=== PATIENT | female | born 1960 | race Caucasian/White ===

== ENCOUNTER 2020-02-16 19:19 | Inpatient (IN) | payer MEDICAID, SELFPAY ==
[2020-02-16 19:21] VITALS: BP 200/116; PULSE 117; RESP 18; TEMP 36.8; O2SAT 96; BMI 22.6
--- NOTE | 2020-02-16 19:46 | ECG_ITS ---
[facility] Test Date: 2020-02-16 Pat Name: Skye Ambrose Department: Room: Gender: Female Protection Manager: : 1960 Requested By: Gardenia Dueñas I Order Number: [id number] Vince MD: Debbie Simmons M.D. Measurements Intervals [place] Rate: 116 P: 68 AR: 132 QRS: 66 QRSD: 79 T: 59 QT: 340 QTc: 473 Interpretive Statements SINUS TACHYCARDIA WITH OCCASIONAL VENTRICULAR PREMATURE COMPLEXES POSSIBLE LEFT ATRIAL ENLARGEMENT [-0.1mV P WAVE IN V1/V2] POSSIBLE LEFT VENTRICULAR HYPERTROPHY [VOLTAGE CRITERIA PLUS LAE OR QRS WIDENING] NONSPECIFIC ST & T-WAVE ABNORMALITY Compared to ECG 05/12/2018 22:55:27 Sinus rhythm no longer present Intraventricular conduction delay no longer present T-wave abnormality still present Electronically Signed On 02-16-2020 20:37:10 ONLINE MERCHANT by Debbie iSmmons M.D. [id number]
--- NOTE | 2020-02-16 19:46 | CTR_ITS ---
PROCEDURE INFORMATION: Exam: CT Head Without Contrast Exam date and time: 02/16/2020 8:21 PM Age: 59 years old Clinical indication: Weakness, extremity and weakness, facial; Right; Additional info: Symptoms of acute stroke TECHNIQUE: Imaging protocol: Computed tomography of the head without contrast. Radiation optimization: All CT scans at this facility use at least one of these dose optimization techniques: automated exposure control; mA and/or kV adjustment per patient size (includes targeted exams where dose is matched to clinical indication); or iterative reconstruction. Other technique: STROKE PROTOCOL was implemented. COMPARISON: No relevant prior studies available. RADIATION DOSE METRICS: Total DLP (mGy-cm): 709.6 FINDINGS: Brain: There is hypoattenuation in the periventricular and subcortical white matter consistent with chronic microvascular disease. There is no acute intracranial hemorrhage. Cerebral ventricles: There is no significant ventricular dilation. The basal cisterns are unremarkable. Bones/joints: The calvarium is intact. Paranasal sinuses: The paranasal sinuses are clear. Mastoid air cells: The mastoid air cells are clear. Soft tissues: The visible extracranial soft tissues are unremarkable. CT/CT head wo con* [id number] IMPRESSION: No acute findings. ASSESSMENT: ASPECTS ([place] Stroke Program Early CT Score) is 10. Radiation Dose CTDIVOL = (mGy): DLP = 709.6 (mGy-cm)
--- NOTE | 2020-02-16 19:46 | CTR_ITS ---
PROCEDURE INFORMATION: Exam: CT Angiography Head With Contrast Exam date and time: 02/16/2020 8:21 PM Age: 59 years old Clinical indication: Patient HX: RT side facial droop and RT side weakness; Additional info: Right facial droop TECHNIQUE: Imaging protocol: Computed tomography angiography of the head with intravenous contrast. 3D rendering (Not supervised by radiologist): MIP and/or 3D reconstructed images were created by the technologist. Radiation optimization: All CT scans at this facility use at least one of these dose optimization techniques: automated exposure control; mA and/or kV adjustment per patient size (includes targeted exams where dose is matched to clinical indication); or iterative reconstruction. Contrast material: VISI 320; Contrast volume: 75 ml; Contrast route: INTRAVENOUS (IV); COMPARISON: CT head wo con* [id number] 02/16/2020 8:36 PM RADIATION DOSE METRICS: Total DLP (mGy-cm): 1972.39 FINDINGS: ANTERIOR CIRCULATION: Right internal carotid artery: There is mild atherosclerotic disease in the cavernous portion of the right internal carotid artery without significant stenosis. Right middle cerebral artery: Unremarkable. No occlusion or significant stenosis. No aneurysm. Right anterior cerebral artery: Unremarkable. No occlusion or significant stenosis. No aneurysm. Left internal carotid artery: There is mild atherosclerotic disease in the cavernous portion of the left internal carotid artery without significant stenosis. Left middle cerebral artery: Unremarkable. No occlusion or significant stenosis. No aneurysm. Left anterior cerebral artery: Unremarkable. No occlusion or significant stenosis. No aneurysm. POSTERIOR CIRCULATION: Right vertebral artery: Unremarkable. No occlusion or significant stenosis. No aneurysm. Left vertebral artery: Unremarkable. No occlusion or significant stenosis. No aneurysm. Basilar artery: Unremarkable. No occlusion or significant stenosis. No aneurysm. Right posterior cerebral artery: origin of the right posterior cerebral artery. No occlusion or aneurysm. Left posterior cerebral artery: Unremarkable. No occlusion or significant stenosis. No aneurysm. Veins: Dural venous sinuses are patent. Brain: No definite mass, mass effect, or midline shift. Cerebral ventricles: No ventriculomegaly. Bones/joints: Unremarkable. No acute fracture. Soft tissues: Unremarkable. IMPRESSION: No arterial stenosis, occlusion or aneurysm. PROCEDURE INFORMATION: Exam: CT Angiography Neck With Contrast Exam date and time: 02/16/2020 8:21 PM Age: 59 years old Clinical indication: Patient HX: RT side facial droop and RT side weakness; Additional info: Right facial droop TECHNIQUE: Imaging protocol: Computed tomography angiography of the neck with intravenous contrast. 3D rendering (Not supervised by radiologist): MIP and/or 3D reconstructed images were created by the technologist. Radiation optimization: All CT scans at this facility use at least one of these dose optimization techniques: automated exposure control; mA and/or kV adjustment per patient size (includes targeted exams where dose is matched to clinical indication); or iterative reconstruction. Contrast material: VISI 320; Contrast volume: 75 ml; Contrast route: INTRAVENOUS (IV); COMPARISON: CT head wo con* [id number] 02/16/2020 8:36 PM RADIATION DOSE METRICS: Total DLP (mGy-cm): 1972.39 FINDINGS: Right common carotid artery: No stenosis. No dissection or occlusion. Right internal carotid artery: No stenosis of the extracranial segment. No dissection or occlusion. Right external carotid artery: No occlusion or stenosis of the origin. Right vertebral artery: There is near occlusion at the right vertebral artery origin. Left common carotid artery: No stenosis. No dissection or occlusion. Left internal carotid artery: There is moderate atherosclerotic disease with luminal irregularity and focal 60-70% stenosis at the origin of the left internal carotid artery. 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 Left external carotid artery: No occlusion or stenosis of the origin. Left vertebral artery: No stenosis. No dissection or occlusion. Aorta: There is marked irregularity of the wall of the distal aortic arch near the isthmus. 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 Bones/joints: The cervical spine and visible portions of the skull base, facial bones and thoracic inlet are unremarkable. Bones are unremarkable. Soft tissues: Unremarkable. No significant soft tissue swelling. Lungs: Nonspecific ground-glass opacity in the anterior right upper lobe. CT/CT angio headneck* [id number] IMPRESSION: 1. 60-70% stenosis due to atherosclerotic disease at the origin of the left internal carotid artery. 2. 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 REFERENCES: NASCET CRITERIA. The degree of internal carotid artery stenosis is based on NASCET criteria. Normal is no stenosis. Mild is less than 50% stenosis. Moderate is 50-69% stenosis. Severe is 70% to 99% stenosis. Total occlusion is no detectable patent lumen. Radiation Dose CTDIVOL = (mGy): DLP = 1971.39~1971.39 (mGy-cm)
[2020-02-16 20:14] VITALS: BP 160/94; PULSE 109; RESP 20; O2SAT 94
[2020-02-16] MEDS: ondansetron 2 mg/ML SDV 2 mL 4 MG IVP (20:25)
[2020-02-16] MEDS: diphenhydrAMINE 50 mg/mL SDV 1mL IVP (20:26)
[2020-02-16] MEDS: hydrocortisone 100 mg/2 mL SDV IVP (20:29)
--- NOTE | 2020-02-16 20:37 | PC.NURSE ---
Patient blood glucose is 105, doctor has been informed
[2020-02-16 20:39] LABS: Glucose Point of Care 105 mg/dL (70-110)
[2020-02-16 20:41] LABS: Blood Urine Neg (Negative); Glucose Urine UA Norm (Normal); Ketones Urine Negative (Negative); Protein Urine Neg (Negative); Urine Appearance Hazy (CLEAR); Urine Color Yellow (Yellow)
[2020-02-16 20:45] LABS: Amphetamines Screen Urine Negative (Negative); Barbiturates Screen Urine Negative (Negative); Benzodiazepines Screen Urine Negative (Negative); Cocaine Screen Urine Negative (Negative); Opiate Screen Urine Negative (Negative); PCP Screen Urine Negative (Negative); THC Screen Urine Negative (Negative)
[2020-02-16 20:45] LABS: Bilirubin Urine Neg (Negative); Nitrate Urine Positive (Negative)
[2020-02-16 20:46] LABS: Add Urine Microscopic? YES; Leukocyte Esterase Urine Trace (Negative); Urobilinogen Urine Norm (Negative)
[2020-02-16 20:47] LABS: Add Urine Culture? Yes; Bacteria Urine 3+ /hpf; Mucus Urine 2+ /hpf; Squamous Epithelial Cell Urine 0-4 /hpf (0-5); WBC Urine 15-25 /hpf (0-5)
--- NOTE | 2020-02-16 20:55 | PC.NURSE ---
pt gone to CT
[2020-02-16 21:21] LABS: Basophils # 0.1 10^3/uL (0.0-0.1); Basophils % 0.8 %; Eosinophils # 0.5 10^3/uL (0.0-0.8); Eosinophils % 5.9 %; Hematocrit 37.4 % (37.0-47.0); Hemoglobin 12.5 g/dL (11.5-15.3); Lymphocytes # 2.6 10^3/uL (0.8-4.8); Lymphocytes % 28.2 %; Mean Corpuscular HGB Conc 33.4 g/dL (30.0-36.0); Mean Corpuscular Hemoglobin 32.1 pg (28.0-34.0); Mean Corpuscular Volume 96.1 fL (81-99); Mean Platelet Volume 10.2 fL (7.4-10.4); Monocytes # 0.9 10^3/uL (0.2-0.9); Monocytes % 9.3 %; Neutrophils # 5.13 10^3/uL (1.8-7.7); Neutrophils % 55.6 %; Nucleated Red Blood Cells % 0 %; Platelet Count 303 10^3/cmm (130-400); Red Blood Count 3.89 10^6/uL (4.1-5.3); White Blood Count 9.2 10^3/uL (4.0-10.0)
[2020-02-16 21:28] LABS: INR 0.99 (0.8-1.2)
[2020-02-16 21:29] LABS: Partial Thromboplastin Time 32.8 SECONDS (23.9-36.7)
[2020-02-16 21:34] LABS: Alanine Aminotransferase 14 U/L (0-33); Albumin Level 3.7 g/dL (3.5-5.2); Alkaline Phosphatase 131 IU/L (35-105); Anion Gap 14.1 (5-19); Aspartate Amino Transferase 13 U/L (0-32); Blood Urea Nitrogen 16 mg/dL (6-20); Calcium 9.4 mg/dL (8.5-10.5); Carbon Dioxide 30 mmol/L (22-29); Chloride 97 mmol/L (98-107); Globulin 2.9 g/dL (1.3-4.6); Glomerular Filtration Rate 64.3 mL/min (90-130); Glucose 99 mg/dL (65-115); Osmolality Calculated 287 mOsm/kg (285-295); Potassium 3.1 mmol/L (3.5-5.1); Sodium 138 mmol/L (136-145); Total Bilirubin 0.2 mg/dL (0.15-1.2); Total Protein 6.6 g/dL (6.6-8.7)
[2020-02-16] MEDS: ciprofloxacin 400 MG/200 ML PREMIX 200 MG IV (22:42)
[2020-02-16 22:48] VITALS: RESP 23
[2020-02-16] MEDS: morphine 4 mg/mL SDV 1 mL IVP (22:48)
[2020-02-16 23:00] VITALS: BP 162/84; PULSE 98; RESP 16; O2SAT 96
[2020-02-17] VITALS (17 sets, daily range): BP systolic 102–180; BP diastolic 61–106; PULSE 77–106; RESP 15–98; TEMP 36.1–37; O2SAT 87–97
[2020-02-17] MEDS: morphine 4 mg/mL SDV 1 mL IVP (00:12)
--- NOTE | 2020-02-17 00:27 | W.ED.NEUROSD ---
HPI - Neuro Symptoms/Deficit General: Chief Complaint: Neuro Symptoms/Deficit Stated Complaint: rt sided weakness Time Seen by Provider: 02/16/20 19:34 Source: patient and EMS Mode of arrival: EMS Limitations: no limitations History of Present Illness: HPI Narrative: Patient was in her usual state of health when she went to bed last night about 10 PM. She says she woke up somewhere between 330 and 4:00 and that the right side of her face felt funny and different. When she eventually woke up she noticed right facial droop and the symptoms worsen as the day progressed. She eventually decided to come to the emergency department for evaluation. She denies any focal weakness in any of her extremities. Denies difficulty with her ambulation. Onset (ago): hour(s) (19) Last Observed Normal: 03:00 Location: right face History of same: No Severity: mild Quality: weak Relieving factors: none Exacerbating factors: none Context: sudden onset On Anticoagulants: No Associated symptoms: Reports headache(s); Deny chest pain, cough, diaphoresis, fevers/chills, anorexia, malaise, nausea, seizures, short of breath, syncope, tingling, vertigo, vomiting or weakness Treatments Prior to Arrival: none Review of Systems General: Reports: 10 or more systems reviewed and unremarkable except in HPI and below Const: Denies: malaise or diaphoresis Eyes: Denies: change in vision or blurry vision ENMT: Denies: throat pain, enlarged tonsils, odynophagia, hoarseness, mouth pain or swelling of lips/tongue Card: Denies: chest pain or syncope Resp: Denies: dyspnea, productive cough or non-productive cough GI: Denies: nausea or vomiting : Denies: flank pain, difficulty voiding, dysuria, urinary frequency, urinary urgency or urinary hesitancy Musc: Denies: neck pain, back pain or extremity swelling Skin/Breast: Denies: rash, pruritus or erythema Neuro: Reports: headache(s); Denies: vertigo Endo: Denies: polyuria, polydipsia or tired all the time [facility] ED PFSH: Family History Other Diabetes Denies family history of Bleeding disorder Social History Smoking and tobacco status: current every day smoker Second hand smoke exposure: Yes Smoking risk assessment/counseling performed?: Yes Alcohol intake: unknown Desire information about alcohol rehabilitation?: No Counseling given: No Desire information about substance/drug rehabilitation?: No Counseling given: No Adopted: No Caregiver/support person: No Lives independently: Yes Household members: spouse Marital status: Number of children: 5 service: No History of recent travel: No Current gender identity: Female NIH stroke score NIHSS: Level Of Consciousness - 1a: 0 Level Of Consciousness Questions - 1b: Both Correct Level Of Consciousness Commands - 1c: Both Correct Best Gaze - 2: Normal Visual Villarreal - 3: No Visual Loss Facial Palsy - 4: Partial Paralysis Motor Arm Right - 5: No Drift Motor Arm Left - 5: No Drift Motor Leg Right - 6: Drift Motor Leg Left - 6: No Drift Limb Ataxia - 7: Absent Sensory - 8: Normal Best Language - 9: No Aphasia Dysarthia - 10: Normal Extinction And Inattention - 11: 0 Score: Total Score: 3 Physical Exam Const: COMMON NORMALS: no acute distress, average body habitus, patient oriented x3, no limitations, healthy appearing, alert and well nourished HENMT: COMMON NORMALS: normocephalic, atraumatic and moist oral mucous membranes HEAD & SCALP: normocephalic and atraumatic Eye: COMMON NORMALS: Equal, round and reactive pupils present, EOMs intact bilaterally, conjunctivae normal and no scleral icterus CONJUNCTIVA: Yes conjunctivae normal PUPIL: Yes Equal, round and reactive pupils present Neck/C-Spine: COMMON NORMALS: full ROM, supple, no meningeal signs, no JVD and No carotid bruits Chest: COMMONS NORMALS: normal inspection of the chest and normal palpation of entire chest wall Resp: COMMON NORMALS: normal respiratory effort, No retractions, No use of accessory muscles, clear to auscultation bilaterally and percussion normal AUSCULTATION: clear to auscultation bilaterally PERCUSSION: percussion normal Cardio: COMMON NORMALS: no JVD, regular rate, regular rhythm, S1 normal heart sound present, S2 normal heart sound present, No gallops present (Cardio), No clicks present (Cardio), No murmurs present (Cardio), No rub (Cardio) and Peripheral pulses 2+ throughout RATE: regular rate RHYTHM: regular rhythm HEART SOUNDS: S1 normal heart sound present and S2 normal heart sound present PERIPHERAL PULSES: Peripheral pulses 2+ throughout GI: COMMON NORMALS: Normal to inspection, nondistended, normoactive bowel sounds present, Soft to palpation, non-tender, No hepatosplenomegaly present, no masses and no bruits PALPATION: Yes Soft to palpation and Yes No hepatosplenomegaly present Extremity: COMMON NORMALS: normal to inspection, full ROM, capillary refill normal, no calf tenderness and no pedal edema Neuro: COMMON NORMALS: patient oriented x3 SENSORIUM/ORIENTATION: Yes alert MENINGEAL SIGNS: Yes no meningeal signs Skin: COMMON NORMALS: no rashes or lesions noted, no wounds, turgor normal, no jaundice, no petechiae and no mottling GENERAL SKIN EXAM: no rashes or lesions noted and turgor normal Course ED course: Patient with symptoms consistent with a CVA. Patient remained stable in the emergency department and is admitted for stroke work-up. Consultations: Consultation #1: Discussed the patient with Dr. Ferris, hospitalist and he kindly accepted patient to his service Vital Signs: Vital signs: Vital Signs Temperature 98.2 F 02/16/20 19:21 Pulse Rate 102 H 02/17/20 00:23 Respiratory Rate 16 02/17/20 00:23 Blood Pressure 164/86 02/17/20 00:23 Pulse Oximetry 96 02/17/20 00:23 MDM - Neuro Symptoms/Deficit MDM Narrative: Medical decision making narrative: Patient with right facial droop and possible right lower extremity weakness. She does have some back pain so uncertain if the drift in his right lower extremity is from the back pain or if it is an actual weakness. Discussed is not completely clear-cut and because of her imaging findings there is a possibility that this may just be a Henry's palsy and so she is given a dose of oral prednisone. However she is a high risk patient as she is diabetic and hypertensive and so she is admitted for stroke work-up. Differential Diagnosis: Neuro Differential Diagnosis: Likely subarachnoid hemorrhage, peripheral neuropathy and cerebrovascular accident Medical Records: Attestation: I reviewed the patient's medical records. Lab Data: Attestation: I reviewed the patient's lab results. Labs: Lab Results 12/02/20 12/02/20 12/02/20 Range/Units 20:18 20:29 20:34 WBC (4.0-10.0) 10^3/ uL RBC (4.1-5.3) 10^6/u L Hgb (11.5-15.3) g/dL Hct (37.0-47.0) % MCV (81-99) fL MCH (28.0-34.0) pg MCHC (30.0-36.0) g/dL RDW (12.1-15.1) % Plt Count (130-400) 10^3/c mm MPV (7.4-10.4) fL Neut % (Auto) % Lymph % (Auto) % Petroleum % (Auto) % Eos % (Auto) % Baso % (Auto) % Neut # (Auto) (1.8-7.7) 10^3/u L Lymph # (Auto) (0.8-4.8) 10^3/u L Petroleum # (Auto) (0.2-0.9) 10^3/u L Eos # (Auto) (0.0-0.8) 10^3/u L Baso # (Auto) (0.0-0.1) 10^3/u L Nucleated RBC % (a uto) % Nucleated RBCs # /100WBC PT (12.1-14.9) SECO NDS INR (0.8-1.2) APTT (23.9-36.7) SECO NDS Sodium (136-145) mmol/L Potassium (3.5-5.1) mmol/L Chloride (98-107) mmol/L Carbon Dioxide (22-29) mmol/L Anion Gap (5-19) BUN (6-20) mg/dL Creatinine (0.5-0.9) mg/dL GFR Calculation (90-130) mL/min Glucose (65-115) mg/dL POC Glucose 105 (70-110) mg/dL Calculated Osmolal ity (285-295) mOsm/k g Calcium (8.5-10.5) mg/dL Total Bilirubin (0.15-1.2) mg/dL AST (0-32) U/L ALT (0-33) U/L Alkaline Phosphata se (35-105) IU/L Total Protein (6.6-8.7) g/dL Albumin (3.5-5.2) g/dL Globulin (1.3-4.6) g/dL Urine Color Yellow (Yellow) Urine Appearance Hazy A (CLEAR) Urine pH 5.0 (5-7) Ur Specific Gravit y 1.020 (1.005-1.030) Urine Protein Neg (Negative) Urine Glucose (UA) Norm (Normal) Urine Ketones Negative (Negative) Urine Blood Neg (Negative) Urine Nitrate Positive H (Negative) Urine Bilirubin Neg (Negative) Urine Urobilinogen Norm (Negative) mg/dL Ur Leukocyte Hazel ase Trace H (Negative) Urine RBC None (0-2) /hpf Urine WBC 15-25 H (0-5) /hpf Ur Squamous Epith Cells 0-4 H (0-5) /hpf Amorphous Sediment Not Reportable Urine Bacteria 3+ H (NONE) /hpf Urine Mucus 2+ /hpf Urine Opiates Scre en Negative (Negative) ng/mL Ur Barbiturates Sc reen Negative (Negative) ng/mL Ur Phencyclidine S crn Negative (Negative) ng/mL Ur Amphetamines Sc reen Negative (Negative) ng/mL U Benzodiazepines Scrn Negative (Negative) ng/mL Urine Cocaine Scre en Negative (Negative) ng/mL U Marijuana (THC) Screen Negative (Negative) ng/mL 02/16/20 02/16/20 02/16/20 Range/Units 21:06 21:06 21:06 WBC 9.2 (4.0-10.0) 10^3/ uL RBC 3.89 L (4.1-5.3) 10^6/u L Hgb 12.5 (11.5-15.3) g/dL Hct 37.4 (37.0-47.0) % MCV 96.1 (81-99) fL MCH 32.1 (28.0-34.0) pg MCHC 33.4 (30.0-36.0) g/dL RDW 13.0 (12.1-15.1) % Plt Count 303 (130-400) 10^3/c mm MPV 10.2 (7.4-10.4) fL Neut % (Auto) 55.6 % Lymph % (Auto) 28.2 % Petroleum % (Auto) 9.3 % Eos % (Auto) 5.9 % Baso % (Auto) 0.8 % Neut # (Auto) 5.13 (1.8-7.7) 10^3/u L Lymph # (Auto) 2.6 (0.8-4.8) 10^3/u L Petroleum # (Auto) 0.9 (0.2-0.9) 10^3/u L Eos # (Auto) 0.5 (0.0-0.8) 10^3/u L Baso # (Auto) 0.1 (0.0-0.1) 10^3/u L Nucleated RBC % (a uto) 0 % Nucleated RBCs # 0.0 /100WBC PT 13.40 (12.1-14.9) SECO NDS INR 0.99 (0.8-1.2) APTT 32.8 (23.9-36.7) SECO NDS Sodium 138 (136-145) mmol/L Potassium 3.1 L (3.5-5.1) mmol/L Chloride 97 L (98-107) mmol/L Carbon Dioxide 30 H (22-29) mmol/L Anion Gap 14.1 (5-19) BUN 16 (6-20) mg/dL Creatinine 0.9 (0.5-0.9) mg/dL GFR Calculation 64.3 L (90-130) mL/min Glucose 99 (65-115) mg/dL POC Glucose (70-110) mg/dL Calculated Osmolal ity 287 (285-295) mOsm/k g Calcium 9.4 (8.5-10.5) mg/dL Total Bilirubin 0.2 (0.15-1.2) mg/dL AST 13 (0-32) U/L ALT 14 (0-33) U/L Alkaline Phosphata se 131 H (35-105) IU/L Total Protein 6.6 (6.6-8.7) g/dL Albumin 3.7 (3.5-5.2) g/dL Globulin 2.9 (1.3-4.6) g/dL Urine Color (Yellow) Urine Appearance (CLEAR) Urine pH (5-7) Ur Specific Gravit y (1.005-1.030) Urine Protein (Negative) Urine Glucose (UA) (Normal) Urine Ketones (Negative) Urine Blood (Negative) Urine Nitrate (Negative) Urine Bilirubin (Negative) Urine Urobilinogen (Negative) mg/dL Ur Leukocyte Hazel ase (Negative) Urine RBC (0-2) /hpf Urine WBC (0-5) /hpf Ur Squamous Epith Cells (0-5) /hpf Amorphous Sediment Urine Bacteria (NONE) /hpf Urine Mucus /hpf Urine Opiates Scre en (Negative) ng/mL Ur Barbiturates Sc reen (Negative) ng/mL Ur Phencyclidine S crn (Negative) ng/mL Ur Amphetamines Sc reen (Negative) ng/mL U Benzodiazepines Scrn (Negative) ng/mL Urine Cocaine Scre en (Negative) ng/mL U Marijuana (THC) Screen (Negative) ng/mL Imaging Data^: CT Head: Radiologist's impression: [address] [address] [address] Scan Report Signed with Xochitl Patient: Skye Ambrose #: [id number] : 2Acct#:[id number] Age/Sex: 59 / FADM Date: 02/16/20 Loc: [facility]/Bed: Attending Dr: Ordering Provider/Ordering MD: Gardenia Hearn MD, [facility] [place] Date of Service: 02/16/20 Procedure(s): CT head wo con* [id number] Accession Number(s): [id number] Report Number: [id number]/CT head wo con* [id number] THIS REPORT CONTAINS FINDINGS THAT MAY BE CRITICAL TO PATIENT CARE. The findings were verbally communicated via telephone conference with GARDENIA HEARN at 9:24 PM QUALITATIVE RESEARCHER on 02/16/2020. The findings were acknowledged and understood. Radiation Dose CTDIVOL = (mGy): DLP = 709.6 (mGy-cm) Addendum Dictated By: Ta Najera MD Addendum Signed By: [facility] [facility] [place] Date/Time:02/16/202125 Addendum Cosigned By: PROCEDURE INFORMATION: Exam: CT Head Without Contrast Exam date and time: 02/16/2020 8:21 PM Age: 59 years old Clinical indication: Weakness, extremity and weakness, facial; Right; Additional info: Symptoms of acute stroke TECHNIQUE: Imaging protocol: Computed tomography of the head without contrast. Radiation optimization: All CT scans at this facility use at least one of these dose optimization techniques: automated exposure control; mA and/or kV adjustment per patient size (includes targeted exams where dose is matched to clinical indication); or iterative reconstruction. Other technique: STROKE PROTOCOL was implemented. COMPARISON: No relevant prior studies available. RADIATION DOSE METRICS: Total DLP (mGy-cm): 709.6 FINDINGS: Brain: There is hypoattenuation in the periventricular and subcortical white matter consistent with chronic microvascular disease. There is no acute intracranial hemorrhage. Cerebral ventricles: There is no significant ventricular dilation. The basal cisterns are unremarkable. Bones/joints: The calvarium is intact. Paranasal sinuses: The paranasal sinuses are clear. Mastoid air cells: The mastoid air cells are clear. Soft tissues: The visible extracranial soft tissues are unremarkable. CT/CT head wo con* [id number] IMPRESSION: No acute findings. ASSESSMENT: ASPECTS (Princess Stroke Program Early CT Score) is 10. Radiation Dose CTDIVOL = (mGy): DLP = 709.6 (mGy-cm) Dictated By:Ta Najera MD Signed By:Ta Najera Date/Time:02/16/202124 DD/ [address]: Radiologist's impression: [address] [address] [address] Scan Report Signed Patient: Skye Ambrose #: [id number] : 2Acct#:[id number] Age/Sex: 59 / FADM Date: 02/16/20 Loc: [facility]/Bed: Attending Dr: Ordering Provider/Ordering MD: Gardenia Hearn MD, [facility] [place] Date of Service: 02/16/20 Procedure(s): CT angio headneck* [id number] Accession Number(s): [id number] Report Number: [id number] PROCEDURE INFORMATION: Exam: CT Angiography Head With Contrast Exam date and time: 02/16/2020 8:21 PM Age: 59 years old Clinical indication: Patient HX: RT side facial droop and RT side weakness; Additional info: Right facial droop TECHNIQUE: Imaging protocol: Computed tomography angiography of the head with intravenous contrast. 3D rendering (Not supervised by radiologist): MIP and/or 3D reconstructed images were created by the technologist. Radiation optimization: All CT scans at this facility use at least one of these dose optimization techniques: automated exposure control; mA and/or kV adjustment per patient size (includes targeted exams where dose is matched to clinical indication); or iterative reconstruction. Contrast material: VISI 320; Contrast volume: 75 ml; Contrast route: INTRAVENOUS (IV); COMPARISON: CT head wo con* [id number] 02/16/2020 8:36 PM RADIATION DOSE METRICS: Total DLP (mGy-cm): 1972.39 FINDINGS: ANTERIOR CIRCULATION: Right internal carotid artery: There is mild atherosclerotic disease in the cavernous portion of the right internal carotid artery without significant stenosis. Right middle cerebral artery: Unremarkable. No occlusion or significant stenosis. No aneurysm. Right anterior cerebral artery: Unremarkable. No occlusion or significant stenosis. No aneurysm. Left internal carotid artery: There is mild atherosclerotic disease in the cavernous portion of the left internal carotid artery without significant stenosis. Left middle cerebral artery: Unremarkable. No occlusion or significant stenosis. No aneurysm. Left anterior cerebral artery: Unremarkable. No occlusion or significant stenosis. No aneurysm. POSTERIOR CIRCULATION: Right vertebral artery: Unremarkable. No occlusion or significant stenosis. No aneurysm. Left vertebral artery: Unremarkable. No occlusion or significant stenosis. No aneurysm. Basilar artery: Unremarkable. No occlusion or significant stenosis. No aneurysm. Right posterior cerebral artery: origin of the right posterior cerebral artery. No occlusion or aneurysm. Left posterior cerebral artery: Unremarkable. No occlusion or significant stenosis. No aneurysm. Veins: Dural venous sinuses are patent. Brain: No definite mass, mass effect, or midline shift. Cerebral ventricles: No ventriculomegaly. Bones/joints: Unremarkable. No acute fracture. Soft tissues: Unremarkable. IMPRESSION: No arterial stenosis, occlusion or aneurysm. PROCEDURE INFORMATION: Exam: CT Angiography Neck With Contrast Exam date and time: 02/16/2020 8:21 PM Age: 59 years old Clinical indication: Patient HX: RT side facial droop and RT side weakness; Additional info: Right facial droop TECHNIQUE: Imaging protocol: Computed tomography angiography of the neck with intravenous contrast. 3D rendering (Not supervised by radiologist): MIP and/or 3D reconstructed images were created by the technologist. Radiation optimization: All CT scans at this facility use at least one of these dose optimization techniques: automated exposure control; mA and/or kV adjustment per patient size (includes targeted exams where dose is matched to clinical indication); or iterative reconstruction. Contrast material: VISI 320; Contrast volume: 75 ml; Contrast route: INTRAVENOUS (IV); COMPARISON: CT head wo con* [id number] 02/16/2020 8:36 PM RADIATION DOSE METRICS: Total DLP (mGy-cm): 1972.39 FINDINGS: Right common carotid artery: No stenosis. No dissection or occlusion. Right internal carotid artery: No stenosis of the extracranial segment. No dissection or occlusion. Right external carotid artery: No occlusion or stenosis of the origin. Right vertebral artery: There is near occlusion at the right vertebral artery origin. Left common carotid artery: No stenosis. No dissection or occlusion. Left internal carotid artery: There is moderate atherosclerotic disease with luminal irregularity and focal 60-70% stenosis at the origin of the left internal carotid artery. 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 Left external carotid artery: No occlusion or stenosis of the origin. Left vertebral artery: No stenosis. No dissection or occlusion. Aorta: There is marked irregularity of the wall of the distal aortic arch near the isthmus. 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 Bones/joints: The cervical spine and visible portions of the skull base, facial bones and thoracic inlet are unremarkable. Bones are unremarkable. Soft tissues: Unremarkable. No significant soft tissue swelling. Lungs: Nonspecific ground-glass opacity in the anterior right upper lobe. CT/CT angio headneck* [id number] IMPRESSION: 1. 60-70% stenosis due to atherosclerotic disease at the origin of the left internal carotid artery. 2. 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 REFERENCES: NASCET CRITERIA. The degree of internal carotid artery stenosis is based on NASCET criteria. Normal is no stenosis. Mild is less than 50% stenosis. Moderate is 50-69% stenosis. Severe is 70% to 99% stenosis. Total occlusion is no detectable patent lumen. Radiation Dose CTDIVOL = (mGy): DLP = 1972.39~1972.39 (mGy-cm) Dictated By:Ta Najera MD Signed By:Ta Najera MDSigned Date/Time:02/16/202127 DD/ 25 EKG Data^: EKG 1: Attestation: I personally reviewed and interpreted this EKG as follows: EKG interpretation date: 02/16/20 EKG interpretation time: 20:32 Prior EKG tracings: not available for review Interpretation: Sinus tachycardia with occasional PVCs. Heart rate 116 bpm. Left atrial enlargement. LVH. No ST changes Discharge Plan Discharge Patient Disposition: Admitted As Inpatient Admit Provider: Calvin Ferris Clinical Impression: Cerebrovascular accident Qualifiers: CVA mechanism: unspecified Qualified Code(s): I63.9 - Cerebral infarction, unspecified Condition: Stable Coding Level of Care Code ED Education Liaison for Eddy Cabrera
--- NOTE | 2020-02-17 01:49 | P.HP_ITS ---
Providers/Chief Complaint Admitting Physician: Calvin Ferris MD Primary Care Provider: YASIR De LeonP-C Chief Complaint: rt sided weakness History of Present Illness Skye Ambrose is a 59 year old female with past medical history of right TM joint syndrome, hypertension, heart failure came in with chief complaint of acute onset of right facial weakness, started, on the morning of day of admission around 3:30 AM. she went to bed last night about 10 PM. She says she woke up somewhere between 330 and 4:00 and that the right side of her face felt funny and different. When she eventually woke up she noticed right facial droop and the symptoms worsen as the day progressed. She eventually decided to come to the emergency department for evaluation. She denies any focal weakness in any of her extremities. Denies difficulty with her ambulation. She denies any fever , cough , ear pain , ear discharge, dizziness, nausea, vomiting , headache, blurred vision, difficulty swallowing, difficulty with speech, any bowel bladder complaint, any sick contact. Upon arrival in the ER she was worked up for CVA/and possible Henry's palsy CT head without contraST: No acute findings. CTA head and neck: 60-70% stenosis due to atherosclerotic disease at the origin of the left internal carotid artery. 2. 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 EKG: SINUS TACHYCARDIA WITH OCCASIONAL VENTRICULAR PREMATURE COMPLEXES. POSSIBLE LEFT ATRIAL ENLARGEMENT [-0.1mV P WAVE IN V1/V2] POSSIBLE LEFT VENTRICULAR HYPERTROPHY [VOLTAGE CRITERIA PLUS LAE OR QRS WIDENING] NONSPECIFIC ST & T-WAVE ABNORMALITY. Urinalysis: Numerous WBC, positive nitrite, trace leukocyte Estrace U tox: Negative ER medications: Hydrocortisone 100 mg IV one-time dose, Levofloxacin 750 mg IV one-time dose. Review of Systems Const: Denies: fever(s), chills, body aches, change in appetite or diaphoresis Card: Denies: palpitations, edema, swelling of feet/ankles, dyspnea on exertion, orthopnea or leg pain with exertion Resp: Denies: dyspnea, productive cough, wheezing or pain on inspiration GI: Denies: abdominal pain, nausea, vomiting, diarrhea or constipation : Denies: flank pain Musc: Denies: back pain, extremity pain or extremity swelling Neuro: Denies: headache(s), difficulty walking or confusion Medications/Allergies Home Medications Medication Instructions Recorded Confirmed Last Taken Type potassium chloride 40 mEq/15 mL 40 meq PO DAILY #473 ml 06/22/19 02/16/20 Unknown Rx oral liquid aspirin 325 mg tablet 325 mg PO DAILY 09/06/19 02/16/20 02/16/20 History clonazepam 1 mg tablet 1 mg PO DAILY 09/06/19 02/16/20 02/16/20 History valacyclovir 1 gram tablet 1,000 mg PO DAILY 09/06/19 02/16/20 02/15/20 History furosemide 40 mg tablet 40 mg PO BID #180 tab 09/28/19 02/16/20 02/16/20 Rx acetaminophen [Tylenol] 325 mg PO QID PRN 02/16/20 02/16/20 Unknown History amlodipine 2.5 mg PO DAILY 02/16/20 02/16/20 Unknown History Allergies Allergy/AdvReac Type Severity Reaction Status Date / Time ceftriaxone [From Rocephin] Allergy UNK Verified 06/22/19 16:10 cephalexin [From Keflex] Allergy UNK Verified 06/22/19 16:10 dextromethorphan Allergy UNK Verified 06/22/19 16:10 eszopiclone [Lunesta] Allergy UNK Verified 06/22/19 16:10 Iodinated Contrast Media Allergy UNK Verified 06/22/19 16:10 ketoprofen Allergy UNK Verified 06/22/19 16:10 ketorolac [From Toradol] Allergy UNK Verified 06/22/19 16:10 mirtazapine [From Remeron] Allergy UNK Verified 06/22/19 16:10 nitrofurantoin Allergy UNK Verified 06/22/19 16:10 [From Macrobid] rofecoxib [From Vioxx] Allergy UNK Verified 06/22/19 16:10 sulfamethoxazole Allergy UNK Verified 06/22/19 16:10 [From Bactrim] sumatriptan [From Imitrex] Allergy UNK Verified 06/22/19 16:10 trimethoprim [From Bactrim] Allergy UNK Verified 06/22/19 16:10 zaleplon [From Sonata] Allergy UNK Verified 06/22/19 16:10 zolpidem [From Ambien] Allergy UNK Verified 06/22/19 16:10 PFSH Acute PFSH: Family History Other Diabetes Denies family history of Bleeding disorder Social History (Reviewed 02/17/20 @ 00:30 by Gardenia Dueñas [place], [facility] [place] Smoking and tobacco status: current every day smoker Second hand smoke exposure: Yes Smoking risk assessment/counseling performed?: Yes Alcohol intake: unknown Desire information about alcohol rehabilitation?: No Counseling given: No Desire information about substance/drug rehabilitation?: No Counseling given: No Adopted: No Caregiver/support person: No Lives independently: Yes Household members: spouse Marital status: Number of children: 5 service: No History of recent travel: No Current gender identity: Female Vitals/I&O/Wt Last Vital Signs Temp 97.6 F 02/17/20 00:44 Pulse 80 02/17/20 01:44 Resp 16 02/17/20 00:23 BP 180/106 02/17/20 00:44 Pulse Ox 97 02/17/20 01:44 Weight last 48 hrs Weight 54.431 kg Physical Exam Const: COMMON NORMALS: patient oriented x3 HENMT: COMMON NORMALS: normocephalic, atraumatic, hearing grossly normal bilaterally and external ears normal HEAD & SCALP: normocephalic and atraumatic EXTERNAL EAR: Yes external ears normal Eye: COMMON NORMALS: no scleral icterus GENERAL EYE: appearance normal, pascale th eyes and all related structures Chest: COMMONS NORMALS: normal inspection of the chest and normal palpation of entire chest wall CHEST: Yes Symmetrical chest wall rise Resp: COMMON NORMALS: normal respiratory effort, No retractions, No use of accessory muscles and clear to auscultation bilaterally EFFORT & INSPECTION: Yes symmetric chest movement AUSCULTATION: clear to auscultation bilaterally Cardio: COMMON NORMALS: regular rate, regular rhythm, S1 normal heart sound present, S2 normal heart sound present, No gallops present (Cardio), No murmurs present (Cardio), No rub (Cardio) and Peripheral pulses 2+ throughout RATE: regular rate RHYTHM: regular rhythm HEART SOUNDS: S1 normal heart sound present and S2 normal heart sound present PERIPHERAL PULSES: Peripheral pulses 2+ throughout GI: COMMON NORMALS: Normal to inspection, nondistended, normoactive bowel sounds present, Soft to palpation, non-tender, No hepatosplenomegaly present and no masses AUSCULTATION: Yes normoactive bowel sounds PALPATION: Yes Soft to palpation and Yes No hepatosplenomegaly present RECTAL EXAM: deferred Extremity: COMMON NORMALS: no clubbing, cyanosis or edema and no pedal edema Neuro: COMMON NORMALS: patient oriented x3 MENINGEAL SIGNS: Yes no meningeal signs and Yes nuccal rigidity CRANIAL NERVES: Yes pupillary reactivity/size, Yes CN I (olfactory), Yes CN II (optic), Yes CN III (oculom otor), Yes CN IV (trochlear), Yes CN V (trigeminal), Yes CN (abducens), Yes CN VIII (vestibulocochlear), Yes CN IX and CN X (glossopharyngeal/vagus), Yes CN XI (spinal accessory) and Yes CN XII (hypoglossal) COORDINATION/BALANCE: [id number] test normal and [id number] test normal SPEECH: speech normal GAIT: Yes Normal gait present SENSORY EXAM: Yes extremities and Trunk sensory exam abnormal MOTOR EXAM: 5/5 motor strength present throughout, Pronator motor function not present, no tremor noted, no asterixis, Motor fasciculations not present, Normal motor muscle tone present throughout and Motor abnormalities not present OTHER: Right-sided facial weakness present. Data : 02/16/20 21:06 02/16/20 21:06 A&P Assessment and plan (1) Henry's palsy: Patient has right-sided facial droop. CT head without contrast and CTA head and neck has failed to show any acute intracranial pathology. Less likely posterior circulation syndrome (vertebrobasilar syndrome) . MRI brain with and without contrast can be considered. 2D echo Currently started on dexamethasone 6 mg oral daily as the patient is intolerant to prednisone. Continue valacyclovir 1 mg oral daily Status: Acute (2) UTI (urinary tract infection): Continue levofloxacin 750 mg IV daily Status: Acute (3) Hypertension: Continue amlodipine 2.5 mg oral daily. Status: Acute (4) TMJ (temporomandibular joint syndrome): Pain control as needed Status: Acute (5) Hypokalemia: Continue to replace potassium. Monitor serum potassium Status: Acute Additional A&P Information DVT prophylaxis: Lovenox 40 subcu daily CODE STATUS: Full code Disposition: Home Attestations Medical Necessity Statement*: Patient needs to be in hospital for the management of Henry's palsy and for evaluation of possible CVA.Anticipated length of stay is greater than 2 midnight Coding Level of Care Code Acute Heavy Equipment Operator Apprentice for g Fwd Diagnoses Henry's palsy G51.0 UTI (urinary tract infection) N39.0 Hypertension I10 TMJ (temporomandibular joint syndrome) M26.609 Hypokalemia E87.6
[2020-02-17] MEDS: levofloxacin-dextrose 5 % 750 MG/150 ML PREMIX 100 MG IV (02:20)
[2020-02-17] MEDS: CLONazepam 1 mg Tablet PO (02:45)
--- NOTE | 2020-02-17 04:07 | USCV_ITS ---
Halie Skye Age: 59 Gender: F : 1960 Exam Date: 02/17/2020 07:18 Ordering Phys: Calvin Ferris MD Technologist: Indiana Varela Exam Location: [facility] [place] Indication: RT SIDED WEAKNESS BP: 152 / 86 HR: 89 Rhythm: Sinus Technical Quality: Fair MEASUREMENTS (Male / Female) Normal Values 2D ECHO LV Diastolic Diameter PLAX 5.1 cm 4.2 - 5.9 / 3.9 - 5.3 cm LV Systolic Diameter PLAX 4.1 cm LV Chamber Size 4.6 cm IVS Diastolic Thickness 1.2 cm 0.6 - 1.0 / 0.6 - 0.9 cm IVS Systolic Thickness 1.7 cm LVPW Diastolic Thickness 1.5 cm 0.6 - 1.0 / 0.6 - 0.9 cm LVPW Systolic Thickness 1.7 cm RV Chamber Size 3.3 cm LVOT Diameter 2.0 cm LV Ejection Fraction 2D Teich 40.4 % LV Ejection Fraction MOD 2C 39.1 % LV Ejection Fraction 2C AL 41.1 % LA Diameter 3.7 cm LA Width 3.9 cm LA Height 5.3 cm RA Width 3.3 cm RA Height 4.3 cm Aorta at Sinotubular Diameter 2.7 cm M-MODE LV Diastolic Diameter MM 6.3 cm 4.2 - 5.9 / 3.9 - 5.3 cm LV Systolic Diameter MM 5.2 cm LV Ejection Fraction MM Teich 35.2 % IVS Diastolic Thickness MM 0.8 cm 0.6 - 1.0 / 0.6 - 0.9 cm IVS Systolic Thickness MM 1.1 cm LVPW Diastolic Thickness MM 1.1 cm 0.6 - 1.0 / 0.6 - 0.9 cm LVPW Systolic Thickness MM 1.2 cm Aortic Annulus Diameter 2.7 cm LA Ao Ratio MM 1.3 MV E Point Septal Separation 1.5 cm DOPPLER AV Peak Velocity 146.0 cm/s LVOT Peak Velocity 105.0 cm/s AV Area Cont Eq vti 2.0 cm squared AV Area Cont Eq pk 2.3 cm squared MV Area PHT 3.9 cm squared Mitral E to A Ratio 1.5 MV E' Velocity 76.5 cm/s Mitral E to MV E' Ratio 21.5 Mitral E to LV E' Lateral Ratio 21.5 Mitral E to LV E' Septal Ratio 21.5 TV Peak E Velocity 59.0 cm/s Right Atrial Pressure 3.0 mmHg PV Peak Velocity 88.0 cm/s FINDINGS Left Ventricle Normal LV size with diminished ejection fraction of around 40%. Diffuse hypokinesia of the lateral wall and inferolateral wall segments.Grade III/IV diastolic dysfunction (restrictive filling pattern), severely elevated filling pressures. Right Ventricle The right ventricle is normal in size and function. Right Atrium The right atrium is normal in size. Left Atrium Mildly increased left atrial size. Mitral Valve Moderate-severe mitral valve regurgitation. Aortic Valve No gross abnormalities noted . Tricuspid Valve No gross abnormalities noted Pulmonic Valve No gross abnormalities noted Pericardium Normal pericardium without effusion. Aorta Normal ascending aorta dimension. CONCLUSIONS Normal LV size with diminished ejection fraction of around 40%. Diffuse hypokinesia of the lateral wall and inferolateral wall segments. Grade III/IV diastolic dysfunction (restrictive filling pattern), severely elevated filling pressures. Moderate-severe mitral valve regurgitation. Mildly increased left atrial size. There is no pericardial effusion. There are no intracardiac masses. Compared to the previous study from 08/07/2016, there is worsening of the LV systolic function and mitral regurgitation Dr Neelam Salas MD [facility] (Electronically Signed) Final Date: 17 February 2020 14:57 S
[2020-02-17 05:06] LABS: Basophils # 0.1 10^3/uL (0.0-0.1); Basophils % 0.7 %; Eosinophils % 0.2 %; Hemoglobin 12.3 g/dL (11.5-15.3); Lymphocytes # 1.6 10^3/uL (0.8-4.8); Lymphocytes % 19.5 %; Mean Corpuscular HGB Conc 33.2 g/dL (30.0-36.0); Mean Corpuscular Hemoglobin 32.4 pg (28.0-34.0); Mean Corpuscular Volume 97.4 fL (81-99); Mean Platelet Volume 10.7 fL (7.4-10.4); Monocytes # 0.6 10^3/uL (0.2-0.9); Monocytes % 7.2 %; Neutrophils # 5.77 10^3/uL (1.8-7.7); Nucleated Red Blood Cells % 0 %; Platelet Count 285 10^3/cmm (130-400); Red Cell Distribution Width 13.1 % (12.1-15.1)
[2020-02-17] MEDS: HYDROcodone-acetaminophen 5-325 mg Tablet 1 TAB PO (05:31)
[2020-02-17 05:38] LABS: Estmated Average Glucose 108; Hemoglobin A1C 5.4 % (4.0-6.0)
[2020-02-17 05:39] LABS: Alanine Aminotransferase 14 U/L (0-33); Albumin Level 3.7 g/dL (3.5-5.2); Alkaline Phosphatase 127 IU/L (35-105); Blood Urea Nitrogen 15 mg/dL (6-20); Calcium 9.4 mg/dL (8.5-10.5); Carbon Dioxide 27 mmol/L (22-29); Chloride 97 mmol/L (98-107); Globulin 2.9 g/dL (1.3-4.6); Glomerular Filtration Rate 56.9 mL/min (90-130); Glucose 111 mg/dL (65-115); Osmolality Calculated 284 mOsm/kg (285-295); Procalcitonin 0.02 ng/mL (0-0.5); Sodium 136 mmol/L (136-145); Thyroid Stimulating Hormone 0.57 uIU/mL (0.27-4.20); Total Bilirubin 0.2 mg/dL (0.15-1.2); Total Protein 6.6 g/dL (6.6-8.7)
[2020-02-17 05:40] LABS: INR 0.95 (0.8-1.2)
[2020-02-17 05:42] LABS: Partial Thromboplastin Time 29.9 SECONDS (23.9-36.7)
[2020-02-17 05:45] LABS: Anion Gap 15.8 (5-19); Aspartate Amino Transferase 18 U/L (0-32); Potassium 3.8 mmol/L (3.5-5.1)
[2020-02-17 05:54] LABS: Chol HDL Ratio 6.63 mg/dL (0.0-4.40); Cholesterol 232 mg/dL (0-200); HDL Cholesterol 35 mg/dL (60-100); LDL Cholesterol Calculated 141 mg/dL (50-129); LDL HDL Ratio 4.03 RATIO (0.00-3.22); Triglycerides 282 mg/dL (0-150)
[2020-02-17] MEDS: aspirin 325 mg Tablet PO (08:57)
[2020-02-17] MEDS: dexamethasone 4 mg Tablet 6 MG PO (08:57)
[2020-02-17] MEDS: FUROsemide 40 mg Tablet PO ×2 (08:57→09:33)
[2020-02-17] MEDS: famotidine 20 mg Tablet PO (08:57)
[2020-02-17] MEDS: amlodipine 5 mg Tablet 2.5 MG PO (08:58)
[2020-02-17] MEDS: valACYclovir 1,000 mg Tablet 1000 MG PO (09:00)
--- NOTE | 2020-02-17 09:10 | PC.NURSE ---
Patient reports she takes her klonipin 0.5 mg in the morning and 0.5 mg at noon then 1 mg at bedtime spoke with Dr Banks during rounding about this verbal instructions given to change dosing as per patient.
--- NOTE | 2020-02-17 09:25 | PC.NURSE ---
patient reports she takes her lasix 80mg in the morning that is how it works for me taking it 40mg twice a day dose not work for me. Spoke with Dr varela about patient concerns instructions given to change lasix to home dose. lasix 80mg daily
[2020-02-17] MEDS: CLONazepam 0.5 mg Tablet PO ×2 (09:33→12:58)
[2020-02-17] MEDS: metoclopramide 5 mg/mL SDV 2 mL IVP (09:33)
[2020-02-17] MEDS: diphenhydrAMINE 50 mg/mL SDV 1mL 12.5 MG IVP (09:33)
--- NOTE | 2020-02-17 13:05 | PM.DCS ---
Discharge Providers Date of Admission: 02/17/20 01:35 Date of Discharge: February 17, 2020 Attending Provider at Admission: Calvin Ferris MD Attending Provider at Discharge: Mack Banks MD Primary Care Provider: MELBA De Leon Diagnoses at Discharge Discharge Diagnosis (1) Henry's palsy: Status: Acute (2) UTI (urinary tract infection): Status: Acute (3) Hypertension: Status: Acute (4) TMJ (temporomandibular joint syndrome): Status: Acute (5) Hypokalemia: Status: Acute Reason for Visit Reason for Visit: rt sided weakness Hospital Course Hospital Course This is a 59-year-old female with a past medical history of TIA, seizures, TMJ syndrome, migraine headaches, right carotid artery stenosis status post endarterectomy, hypertension, CAD status post RCA and left circumflex stenting, peripheral vascular disease, COPD, current smoker, who presents [facility] due to right facial droop Patient was admitted to [facility] due to right upper and lower facial droop, likely Henry's palsy, with a history of shingles in the past, treated with inpatient steroids, valacyclovir. Patient will be discharged on Decadron for 6 days, valacyclovir, artificial tears. I spoke to neurology, patient should follow-up with neurology with MRI, MRA of the brain, patient would prefer to go to neurology in [place], appointment was set up for her. Patient CTA of the head and neck showed 60 to 70% stenosis due to atherosclerotic disease at the origin of the left internal carotid artery, she should continue aspirin, and statin, follow-up with Dr. Randall for monitoring Patient had a UTI, discharged on ciprofloxacin Physical Exam Const: COMMON NORMALS: no acute distress and patient oriented x3 HENMT: COMMON NORMALS: normocephalic HEAD & SCALP: normocephalic Neck/C-Spine: COMMON NORMALS: no JVD Resp: COMMON NORMALS: normal respiratory effort, No retractions, No use of accessory muscles and clear to auscultation bilaterally AUSCULTATION: clear to auscultation bilaterally Cardio: COMMON NORMALS: no JVD, regular rate, regular rhythm, S1 normal heart sound present and S2 normal heart sound present RATE: regular rate RHYTHM: regular rhythm HEART SOUNDS: S1 normal heart sound present and S2 normal heart sound present GI: COMMON NORMALS: Normal to inspection, nondistended, normoactive bowel sounds present, Soft to palpation, non-tender, No hepatosplenomegaly present, no masses and no bruits PALPATION: Yes Soft to palpation and Yes No hepatosplenomegaly present Extremity: COMMON NORMALS: capillary refill normal, no clubbing, cyanosis or edema, no calf tenderness and no pedal edema Neuro: COMMON NORMALS: patient oriented x3 OTHER: Right facial droop, upper and lower facial droop Psych: COMMON NORMALS: mental status grossly normal Discharge Data Data Completed and Pending: Completed Studies During Hospitalization Category Date Time Status CT angio headneck * [id number] Stat Cat Scan 02/16/20 19:[address] head wo con* [id number] Stat Cat Scan 02/16/20 19:46 Completed Pending at discharge Category Date Time Status Complete Blood Co unt w/Auto AM LABS Lab 02/18/20 04:00 Ordered Complete Blood Co unt w/Auto AM LABS Lab 02/19/20 04:00 Ordered Complete Blood Co unt w/Auto AM LABS Lab 02/20/20 04:00 Ordered Comprehensive Met abolic Panel AM LA BS Lab 02/18/20 04:00 Ordered Comprehensive Met abolic Panel AM LA BS Lab 02/19/20 04:00 Ordered Comprehensive Met abolic Panel AM LA BS Lab 02/20/20 04:00 Ordered Hemoglobin A1C AM LABS Lab 02/18/20 04:00 Ordered Lipid Panel AM LA BS Lab 02/18/20 04:00 Ordered Magnesium AM LABS Lab 02/18/20 04:00 Ordered Partial Thrombopl astin Time AM LABS Lab 02/18/20 04:00 Ordered Procalcitonin AM LABS Lab 02/18/20 04:00 Ordered Prothrombin Time INR AM LABS Lab 02/18/20 04:00 Ordered Thyroid Stimulati ng Hormone AM LABS Lab 02/18/20 04:00 Ordered Urine Culture Sta t Lab 02/16/20 20:29 Received CV echo complete* [id number] Routine Ultrasound 02/17/20 04:07 Taken Labs from last 24 hours 02/17/20 02/17/20 02/17/20 04:05 04:05 04:05 WBC RBC Hgb Hct MCV MCH MCHC RDW Plt Count MPV Neut % (Auto) Lymph % (Auto) [place] % (Auto) Eos % (Auto) Baso % (Auto) Neut # (Auto) Lymph # (Auto) [place] # (Auto) Eos # (Auto) Baso # (Auto) Nucleated RBC % (a uto) Nucleated RBCs # PT INR APTT Sodium 136 Potassium 3.8 Chloride 97 L Carbon Dioxide 27 Anion Gap 15.8 BUN 15 Creatinine 1.0 H GFR Calculation 56.9 L Glucose 111 POC Glucose Estimat Average Gl ucose 108 Hemoglobin A1c 5.4 Calculated Osmolal ity 284 L Calcium 9.4 Magnesium 2.0 Total Bilirubin 0.2 AST 18 ALT 14 Alkaline Phosphata se 127 H Total Protein 6.6 Albumin 3.7 Globulin 2.9 Triglycerides 282 H Cholesterol 232 H LDL Cholesterol, C alc 141 H HDL Cholesterol 35 L LDL/HDL Ratio 4.03 H Cholesterol/HDL Ra brandie 6.63 H Procalcitonin 0.02 TSH 0.57 Urine Color Urine Appearance Urine pH Ur Specific Gravit y Urine Protein Urine Glucose (UA) Urine Ketones Urine Blood Urine Nitrate Urine Bilirubin Urine Urobilinogen Ur Leukocyte Hazel ase Urine RBC Urine WBC Ur Squamous Epith Cells Amorphous Sediment Urine Bacteria Urine Mucus Urine Opiates Scre en Ur Barbiturates Sc reen Ur Phencyclidine S crn Ur Amphetamines Sc reen U Benzodiazepines Scrn Urine Cocaine Scre en U Marijuana (THC) Screen 02/17/20 02/17/20 02/16/20 04:05 04:05 21:06 WBC 8.0 RBC 3.80 L Hgb 12.3 Hct 37.0 MCV 97.4 MCH 32.4 MCHC 33.2 RDW 13.1 Plt Count 285 MPV 10.7 H Neut % (Auto) 72.0 Lymph % (Auto) 19.5 [place] % (Auto) 7.2 Eos % (Auto) 0.2 Baso % (Auto) 0.7 Neut # (Auto) 5.77 Lymph # (Auto) 1.6 [place] # (Auto) 0.6 Eos # (Auto) 0.0 Baso # (Auto) 0.1 Nucleated RBC % (a uto) 0 Nucleated RBCs # 0.0 PT 13.00 INR 0.95 APTT 29.9 Sodium 138 Potassium 3.1 L Chloride 97 L Carbon Dioxide 30 H Anion Gap 14.1 BUN 16 Creatinine 0.9 GFR Calculation 64.3 L Glucose 99 POC Glucose Estimat Average Gl ucose Hemoglobin A1c Calculated Osmolal ity 287 Calcium 9.4 Magnesium Total Bilirubin 0.2 AST 13 ALT 14 Alkaline Phosphata se 131 H Total Protein 6.6 Albumin 3.7 Globulin 2.9 Triglycerides Cholesterol LDL Cholesterol, C alc HDL Cholesterol LDL/HDL Ratio Cholesterol/HDL Ra brandie Procalcitonin TSH Urine Color Urine Appearance Urine pH Ur Specific Gravit y Urine Protein Urine Glucose (UA) Urine Ketones Urine Blood Urine Nitrate Urine Bilirubin Urine Urobilinogen Ur Leukocyte Hazel ase Urine RBC Urine WBC Ur Squamous Epith Cells Amorphous Sediment Urine Bacteria Urine Mucus Urine Opiates Scre en Ur Barbiturates Sc reen Ur Phencyclidine S crn Ur Amphetamines Sc reen U Benzodiazepines Scrn Urine Cocaine Scre en U Marijuana (THC) Screen 02/16/20 02/16/20 02/16/20 21:06 21:06 20:34 WBC 9.2 RBC 3.89 L Hgb 12.5 Hct 37.4 MCV 96.1 MCH 32.1 MCHC 33.4 RDW 13.0 Plt Count 303 MPV 10.2 Neut % (Auto) 55.6 Lymph % (Auto) 28.2 [place] % (Auto) 9.3 Eos % (Auto) 5.9 Baso % (Auto) 0.8 Neut # (Auto) 5.13 Lymph # (Auto) 2.6 [place] # (Auto) 0.9 Eos # (Auto) 0.5 Baso # (Auto) 0.1 Nucleated RBC % (a uto) 0 Nucleated RBCs # 0.0 PT 13.40 INR 0.99 APTT 32.8 Sodium Potassium Chloride Carbon Dioxide Anion Gap BUN Creatinine GFR Calculation Glucose POC Glucose 105 Estimat Average Gl ucose Hemoglobin A1c Calculated Osmolal ity Calcium Magnesium Total Bilirubin AST ALT Alkaline Phosphata se Total Protein Albumin Globulin Triglycerides Cholesterol LDL Cholesterol, C alc HDL Cholesterol LDL/HDL Ratio Cholesterol/HDL Ra brandie Procalcitonin TSH Urine Color Urine Appearance Urine pH Ur Specific Gravit y Urine Protein Urine Glucose (UA) Urine Ketones Urine Blood Urine Nitrate Urine Bilirubin Urine Urobilinogen Ur Leukocyte Hazel ase Urine RBC Urine WBC Ur Squamous Epith Cells Amorphous Sediment Urine Bacteria Urine Mucus Urine Opiates Scre en Ur Barbiturates Sc reen Ur Phencyclidine S crn Ur Amphetamines Sc reen U Benzodiazepines Scrn Urine Cocaine Scre en U Marijuana (THC) Screen 02/16/20 02/16/20 20:29 20:18 WBC RBC Hgb Hct MCV MCH MCHC RDW Plt Count MPV Neut % (Auto) Lymph % (Auto) [place] % (Auto) Eos % (Auto) Baso % (Auto) Neut # (Auto) Lymph # (Auto) [place] # (Auto) Eos # (Auto) Baso # (Auto) Nucleated RBC % (a uto) Nucleated RBCs # PT INR APTT Sodium Potassium Chloride Carbon Dioxide Anion Gap BUN Creatinine GFR Calculation Glucose POC Glucose Estimat Average Gl ucose Hemoglobin A1c Calculated Osmolal ity Calcium Magnesium Total Bilirubin AST ALT Alkaline Phosphata se Total Protein Albumin Globulin Triglycerides Cholesterol LDL Cholesterol, C alc HDL Cholesterol LDL/HDL Ratio Cholesterol/HDL Ra brandie Procalcitonin TSH Urine Color Yellow Urine Appearance Hazy A Urine pH 5.0 Ur Specific Gravit y 1.020 Urine Protein Neg Urine Glucose (UA) Norm Urine Ketones Negative Urine Blood Neg Urine Nitrate Positive H Urine Bilirubin Neg Urine Urobilinogen Norm Ur Leukocyte Hazel ase Trace H Urine RBC None Urine WBC 15-25 H Ur Squamous Epith Cells 0-4 H Amorphous Sediment Not Reportable Urine Bacteria 3+ H Urine Mucus 2+ Urine Opiates Scre en Negative Ur Barbiturates Sc reen Negative Ur Phencyclidine S crn Negative Ur Amphetamines Sc reen Negative U Benzodiazepines Scrn Negative Urine Cocaine Scre en Negative U Marijuana (THC) Screen Negative Vitals: Last Vital Signs Temp 97.0 F L 02/17/20 12:39 Pulse 91 02/17/20 12:39 Resp 20 H 02/17/20 12:39 BP 113/67 02/17/20 12:39 Pulse Ox 95 02/17/20 12:39 Discharge Plan Discharge Patient Disposition: Home Condition: Stable Prescriptions: New dexamethasone 4 mg Tablet 6 mg PO DAILY 6 Days Qty: 6 RF: 0 atorvastatin 40 mg tablet 40 mg PO DAILY 30 Days Qty: 30 RF: 0 Cipro 500 mg tablet 500 mg PO BID 5 Days Qty: 10 RF: 0 Continued aspirin 325 mg tablet 325 mg PO DAILY RF: 0 clonazepam 1 mg tablet 1 mg PO DAILY RF: 0 potassium chloride 40 mEq/15 mL liquid 40 meq PO DAILY Qty: 473 RF: 3 furosemide 40 mg tablet 40 mg PO BID Qty: 180 RF: 3 amlodipine 2.5 mg Tablet 2.5 mg PO DAILY RF: 0 Tylenol 325 mg Tablet 325 mg PO QID PRN (Reason: Pain) RF: 0 budesonide 0.5 mg/2 mL Suspension For Nebulization 0.5 mg INHALATION BID RF: 0 albuterol sulfate 90 mcg/actuation Hfa Aerosol Inhaler 2 puff INHALATION Q6H PRN (Reason: Shortness Of Breath) RF: 0 Changed valacyclovir 1 gram tablet 1,000 mg PO TID 30 Days Qty: 90 RF: 0 Discharge Orders: Discharge Order (Routine); Ordered 02/17/20 Ordered By: Mack Banks Referrals: Bennie Randall MD [Physician] - 1 month (You have an appointment at [facility] with Brigitte Randall on March 24 at 9:30am ) Santos Marie MD [Occupational Therapist] - (Neurology clinic in [place] will be calling you to set an appointment. If you don't hear from them within a reasonable amount iof time, please give them a call. Thank you) Discharge Diet: Cardiac Discharge Activity: Resume usual activity Patient Instructions: Henry's Palsy, Ciprofloxacin (By mouth), Corticosteroids (By mouth), Atorvastatin (By mouth), Cigarette Smoking and Your Health (GEN), Carotid Artery Disease (GEN) Activity Restrictions/Additional Instructions: -Please follow-up with neurology in [place], for MRI MRA of the brain -Please follow-up with Dr. Randall in 1 to 2 months -If you have stroke like symptoms please call 911 or go to the emergency room Discharge Attestations Time Spent in Discharge Care*: less than 30 min Quality Metrics Clinical Quality Measures During this hospital stay, did patient experience: None Coding Level of Care Code Acute Book Binder for g Fwd Diagnoses Henry's palsy G51.0 UTI (urinary tract infection) N39.0 Hypertension I10 TMJ (temporomandibular joint syndrome) M26.609 Hypokalemia E87.6
--- NOTE | 2020-02-17 15:35 | PC.NURSE ---
patient discharged home at this time, patient provided with discharge instructions and follow up appointments. patient verbalized understanding of instructions provided. patient alert and in stable condition patient assisted to wheel chair and accompanied to transport services by staff, with all belongings and discharge instructions in hand.
--- NOTE | 2020-02-18 16:49 | PC.RESP ---
Smoking Cessation information sent to patient.
== END 2020-02-17 15:30 | disposition home or self-care (01) | DRG 74 ==
LOC: ER 19:34 → CSU 02-17 00:40
PROVIDERS: Admitting Provider Internal Medicine; Emergency Provider Family Medicine; PCP Nurse Practitioner; Visit Provider Family Medicine
DX: G51.0 Bell's palsy (principal); N39.0 Urinary tract infection, site not specified; E87.6 Hypokalemia; M26.609 Unspecified temporomandibular joint disorder, unspecified side; Z86.73 Personal history of transient ischemic attack (TIA), and cerebral infarction without residual deficits; I65.21 Occlusion and stenosis of right carotid artery; Z95.5 Presence of coronary angioplasty implant and graft; J44.9 Chronic obstructive pulmonary disease, unspecified; F17.210 Nicotine dependence, cigarettes, uncomplicated; I73.9 Peripheral vascular disease, unspecified; Z79.82 Long term (current) use of aspirin; I50.9 Heart failure, unspecified; I11.0 Hypertensive heart disease with heart failure
CPT/HCPCS: 12345; 36415; 36416; 70450; 70496; 70498; 80053; 80061; 80306; 81001; 82962; 83036; 83735; 84145; 84443; 85025; 85610; 85730; 87077; 87086; 87186; 93005; 93306; 94640; 96375; 99283; J0744; J1200; J1720; J1956; J2270; J2405; J2765; J7611; J8540; Q9967

== ENCOUNTER → 2021-02-14 15:11 | Outpatient (BNVA) | payer MEDICAID, SELFPAY | PROVIDERS: PCP Nurse Practitioner; Visit Provider Nurse Practitioner Family | DX: I10 Essential (primary) hypertension (principal); J44.9 Chronic obstructive pulmonary disease, unspecified; B02.29 Other postherpetic nervous system involvement; B37.0 Candidal stomatitis; F41.1 Generalized anxiety disorder; G51.0 Bell's palsy; T78.2XXA Anaphylactic shock, unspecified, initial encounter; T78.2XXS Anaphylactic shock, unspecified, sequela | CPT/HCPCS: 80053; 80061; 83721; 84443; 85025 ==

== ENCOUNTER → 2021-09-27 15:47 | Outpatient (BNVA) | payer MEDICAID, SELFPAY | PROVIDERS: PCP Nurse Practitioner; Visit Provider Nurse Practitioner Family | DX: F41.1 Generalized anxiety disorder (principal); I10 Essential (primary) hypertension; J44.9 Chronic obstructive pulmonary disease, unspecified | CPT/HCPCS: 80053; 80061; 83721; 84443; 85025 ==

== ENCOUNTER 2022-01-18 21:30 | Emergency (ER) | payer MEDICAID, SELFPAY ==
[2022-01-18 21:35] VITALS: BP 180/106; PULSE 115; RESP 18; TEMP 36.7; O2SAT 97; BMI 20.8
--- NOTE | 2022-01-18 21:38 | ED_ITS ---
Documented by User: César Cui MD 01/26/22 20:58 HPI - Back Pain/Injury General: Chief Complaint: Urogenital-Female Stated Complaint: LOWER BACK PAIN Time Seen by Provider: 01/18/22 21:37 History of Present Illness: Ms Ambrose is a 61-year-old lady with history of nephrolithiasis, COPD, hypertension, anxiety presenting to the emergency department due to concern over kidney stone. She reports noticing some suprapubic discomfort associated with hematuria early this morning and has subsequently developed right lower quadrant pain and right flank pain. Feels similar to prior kidney stones. Intensity is moderate to severe. Associated chills and nausea but no vomiting. Denies changes in bowel habits. Last kidney stone apparently was approximately 1 month ago and does have a history of requiring intervention. No other specific changes in health, exacerbating, or alleviating factors identified. Onset (ago): hour(s) Timing: progressively worsening Severity: severe Similar Symptoms Previously: Yes Quality: sharp, stabbing and aching Location: right flank Radiation: groin Exacerbating factors: none Relieving factors: none Associated symptoms: Reports hematuria, nausea and urinary frequency Review of Systems General: Reports: 10 or more systems reviewed and unremarkable except in HPI and below GI: Reports: nausea : Reports: hematuria PFSH ED PFSH: Medical History Allergy to iodine Anxiety, generalized CAD (coronary artery disease) Chronic post-traumatic stress disorder (PTSD) COPD (chronic obstructive pulmonary disease) Hypertension Lumbar radiculopathy, chronic Post herpetic neuralgia Vitamin D insufficiency Surgical History History of bladder surgery History of breast augmentation Saline History of heart artery stent 2 stents September 2013 History of tubal ligation Family History Sister Diabetes Brother Diabetes Denies family history of Bleeding disorder Social History Smoking and tobacco status: current every day smoker Second hand smoke exposure: Yes Smoking risk assessment/counseling performed?: Yes Alcohol intake: unknown Desire information about alcohol rehabilitation?: No Counseling given: No Desire information about substance/drug rehabilitation?: No Counseling given: No Adopted: No Caregiver/support person: No Lives independently: Yes Household members: spouse Marital status: Number of children: 5 service: No History of recent travel: No Current gender identity: Female Physical Exam Const: COMMON NORMALS: alert GENERAL APPEARANCE: cooperative and well developed HENMT: COMMON NORMALS: normocephalic and atraumatic HEAD & SCALP: normocephalic and atraumatic Eye: COMMON NORMALS: conjunctivae normal CONJUNCTIVA: Yes conjunctivae normal SCLERA: sclerae normal Neck/C-Spine: COMMON NORMALS: supple GENERAL: Yes trachea midline Resp: COMMON NORMALS: clear to auscultation bilaterally EFFORT & INSPECTION: Yes able to speak in complete sentences AUSCULTATION: clear to auscultation bilaterally Cardio: COMMON NORMALS: regular rhythm RATE: tachycardic RHYTHM: regular rhythm GI: COMMON NORMALS: Soft to palpation PALPATION: Yes Soft to palpation, Yes Tenderness to palpation present (GI), No Guarding due to palpation present (GI) and No Rigid due to palpation Extremity: GENERAL: Yes normal exam except as noted and No edema Neuro: COMMON NORMALS: moves all extremities SENSORIUM/ORIENTATION: Yes alert and No Orientation impaired Psych: COMMON NORMALS: mental status grossly normal and Normal thought process present THOUGHT PROCESS: Normal thought process present Course Vital Signs: Vital signs: Vital Signs Temperature 98.0 F 01/18/22 21:35 Pulse Rate 106 H 01/19/22 07:46 Respiratory Rate 16 01/19/22 07:46 Blood Pressure 150/79 01/19/22 07:46 Pulse Oximetry 92 01/19/22 07:[address] thod 01/19/22 04:00 Oxygen Flow Rate 2 01/19/22 04:00 MDM - Back Pain/Injury Medical Decision Making 61-year-old female presenting with hematuria and flank pain associated with nausea. Exam as above. Significant hematuria noted on urinalysis without panda dence of kidney stone on CT. Handed off to overnight ED physician Dr. Read pending reassessment with bladder irrigation. 61-year-old female checked out to me by the previous physician at shift change. This lady remains hemodynamically stable. She has had right flank pain and pelvic pain. She has had gross hematuria. Hemoglobin is 11. White blood cell count is 10.5. She is not anticoagulated. She is on liters 3 and 4 of continuous bladder irrigation now without clearing of the blood in the urine. She does have a urinary tract infection that is nitrate positive on urinalysis. She has been given antibiotics for this we have no urology coverage this weekend at this facility. I talked emergency hospital [place], and they have graciously excepted. Their hospitalist will see on her arrival. Medical Records I reviewed the patient's medical records. Labs I reviewed the patient's lab results. : 01/18/22 22:05 01/18/22 22:05 Radiology Impressions Abdomen/Pelvis CT 01/18/22 21:47 IMPRESSION: 1. Negative for focal acute inflammatory process in the abdomen or pelvis. 2. Fusiform infrarenal abdominal aortic aneurysm measuring up to 4.2 cm, somewhat increased in size compared to prior exam when it measured 3.3 cm, negative for findings of rupture, a CT with contrast could further evaluate this. 3. Scattered prominent subcentimeter short axis periaortic lymph nodes, new compared to prior exam, nonspecific. 4. Left lower lobe 9.5 mm pulmonary nodule, dedicated nonemergent chest CT could further characterize this. 5. Pericardial effusion measuring up to 11 mm somewhat visualized. 6. Right kidney chronic parenchymal atrophy. 7. Diverticulosis without diverticulitis. 8. Suspected blood products in the urinary bladder of uncertain etiology. 9. L5 vertebral body superior endplate compression fracture without retropulsion of bony fragments. Laboratory Results WBC 10.5 10^3/uL (4.0-10.0) H 01/18/22 22: RBC 3.69 10^6/uL (4.1-5.3) L 01/18/22 22:05 Hgb 11.0 g/dL (11.5-15.3) L 01/18/22 22:05 Hct 34.5 % (37.0-47.0) L 01/18/22 22:05 MCV 93.5 fl (81-99) 01/18/22 22:05 MCH 29.8 pg (28.0-34.0) 01/18/22 22:05 MCHC 31.9 g/dL (30.0-36.0) 01/18/22 22:05 RDW 13.3 % (12.1-15.1) 01/18/22 22:05 Plt Count 346 10^3/cmm (130-400) 01/18/22 22:05 MPV 10.1 fL (7.4-10.4) 01/18/22 22:05 Neut % (Auto) 66.6 % 01/18/22 22:05 Lymph % (Auto) 19.6 % 01/18/22 22:05 [place] % (Auto) 7.7 % 01/18/22 22:05 Eos % (Auto) 5.0 % 01/18/22 22:05 Baso % (Auto) 0.7 % 01/18/22 22:05 Neut # (Auto) 7.00 10^3/uL (1.8-7.7) 01/18/22 22:05 Lymph # (Auto) 2.1 10^3/uL (0.8-4.8) 01/18/22 22:05 [place] # (Auto) 0.8 10^3/uL (0.2-0.9) 01/18/22 22:05 Eos # (Auto) 0.5 10^3/uL (0.0-0.8) 01/18/22 22:05 Baso # (Auto) 0.1 10^3/uL (0.0-0.1) 01/18/22 22:05 Nucleated RBC % (auto) 0 % 01/18/22 22:05 Nucleated RBCs # 0.0 /100WBC 01/18/22 22:05 Sodium 137 mmol/L (136-145) 01/18/22 22:05 Potassium 3.9 mmol/L (3.5-5.1) 01/18/22 22:05 Chloride 102 mmol/L (98-107) 01/18/22 22:05 Carbon Dioxide 25 mmol/L (22-29) 01/18/22 22:05 Anion Gap 13.9 (5-19) 01/18/22 22:05 BUN 19 mg/dL (8-23) 01/18/22 22:05 Creatinine 0.9 mg/dL (0.5-0.9) 01/18/22 22:05 GFR Calculation 63.9 mL/min (90-130) L 01/18/22 22:05 Glucose 110 mg/dL (65-115) 01/18/22 22:05 Calculated Osmolality 287 mOsm/kg (285-295) 01/18/22 22:05 Lactate 0.7 mmol/L (0.5-2.2) 01/18/22 22:05 Calcium 9.0 mg/dL (8.5-10.5) 01/18/22 22:05 Total Bilirubin 0.2 mg/dL (0.15-1.2) 01/18/22 22:05 AST 10 U/L (0-32) 01/18/22 22:05 ALT 8 U/L (0-33) 01/18/22 22:05 Alkaline Phosphatase 129 U/L (35-105) H 01/18/22 22:05 Total Protein 7.0 g/dL (6.6-8.7) 01/18/22 22:05 Albumin 3.7 g/dL (3.5-5.2) 01/18/22 22:05 Globulin 3.3 g/dL (1.3-4.6) 01/18/22 22:05 Lipase 40 U/L (13-60) 01/18/22 22:05 Urine Color Red (Yellow) 01/18/22 21:46 Urine Appearance Bloody (CLEAR) A 01/18/22 21:46 Urine pH 7 (5-7) 01/18/22 21:46 Ur Specific [place] 1.010 (1.005-1.030) 01/18/22 21:46 Urine Protein 3+ (Negative) H 01/18/22 21:46 Urine Glucose (UA) Norm (Normal) 01/18/22 21:46 Urine Ketones Negative (Negative) 01/18/22 21:46 Urine Blood 3+ (Negative) H 01/18/22 21:46 Urine Nitrate Positive (Negative) H 01/18/22 21:46 Urine Bilirubin Neg (Negative) 01/18/22 21:46 Urine Urobilinogen Norm mg/dL (Negative) 01/18/22 21:46 Ur Leukocyte Esterase Trace (Negative) H 01/18/22 21:46 Urine RBC Too numerous to cnt /hpf (0-2) H 01/18/22 21:46 Urine WBC 15-25 /hpf (0-5) H 01/18/22 21:46 Ur Squamous Epith Cells None /hpf (0-5) 01/18/22 21:46 Amorphous Sediment Not Reportable 01/18/22 21:46 Urine Bacteria None /hpf (NONE) 01/18/22 21:46 Discharge Plan Discharge Patient Disposition: Xfer Short-Term Hosp Clinical Impression: Gross hematuria, Urinary tract infection, Bladder hemorrhage Condition: Stable Referrals: Nancy White FNP-C [Primary Care Provider] - Coding Level of Care Code ED Housekeeping Assistant for Chg Fwd Exam Comprehensive Documented by User: Pablo Read DO 01/19/22 03:25 HPI - Back Pain/Injury General: Chief Complaint: Urogenital-Female Stated Complaint: LOWER BACK PAIN Time Seen by Provider: 01/18/22 21:37 PFSH ED PFSH: Medical History Allergy to iodine Anxiety, generalized CAD (coronary artery disease) Chronic post-traumatic stress disorder (PTSD) COPD (chronic obstructive pulmonary disease) Hypertension Lumbar radiculopathy, chronic Post herpetic neuralgia Vitamin D insufficiency Surgical History History of bladder surgery History of breast augmentation Saline History of heart artery stent 2 stents September 2013 History of tubal ligation Family History Sister Diabetes Brother Diabetes Denies family history of Bleeding disorder Social History Smoking and tobacco status: current every day smoker Second hand smoke exposure: Yes Smoking risk assessment/counseling performed?: Yes Alcohol intake: unknown Desire information about alcohol rehabilitation?: No Counseling given: No Desire information about substance/drug rehabilitation?: No Counseling given: No Adopted: No Caregiver/support person: No Lives independently: Yes Household members: spouse Marital status: Number of children: 5 service: No History of recent travel: No Current gender identity: Female Course Vital Signs: Vital signs: Vital Signs Temperature 98.0 F 01/18/22 21:35 Pulse Rate 106 H 01/19/22 07:46 Respiratory Rate 16 01/19/22 07:46 Blood Pressure 150/79 01/19/22 07:46 Pulse Oximetry 92 01/19/22 07:46 Oxygen Delivery Me thod 01/19/22 04:00 Oxygen Flow Rate 2 01/19/22 04:00 MDM - Back Pain/Injury Medical Decision Making 61-year-old female checked out to me by the previous physician at shift change. This lady remains hemodynamically stable. She has had right flank pain and p elvic pain. She has had gross hematuria. Hemoglobin is 11. White blood cell count is 10.5. She is not anticoagulated. She is on liters 3 and 4 of continuous bladder irrigation now without clearing of the blood in the urine. She does have a urinary tract infection that is nitrate positive on urinalysis. She has been given antibiotics for this we have no urology coverage this weekend at this facility. I talked emergency hospital [place], and they have graciously excepted. Their hospitalist will see on her arrival. Labs : 01/18/22 22:05 01/18/22 22:05 Radiology Impressions Abdomen/Pelvis CT 01/18/22 21:47 IMPRESSION: 1. Negative for focal acute inflammatory process in the abdomen or pelvis. 2. Fusiform infrarenal abdominal aortic aneurysm measuring up to 4.2 cm, somewhat increased in size compared to prior exam when it measured 3.3 cm, negative for findings of rupture, a CT with contrast could further evaluate this. 3. Scattered prominent subcentimeter short axis periaortic lymph nodes, new compared to prior exam, nonspecific. 4. Left lower lobe 9.5 mm pulmonary nodule, dedicated nonemergent chest CT could further characterize this. 5. Pericardial effusion measuring up to 11 mm somewhat visualized. 6. Right kidney chronic parenchymal atrophy. 7. Diverticulosis without diverticulitis. 8. Suspected blood products in the urinary bladder of uncertain etiology. 9. L5 vertebral body superior endplate compression fracture without retropulsion of bony fragments. Laboratory Results WBC 10.5 10^3/uL (4.0-10.0) H 01/18/22 22:05 RBC 3.69 10^6/uL (4.1-5.3) L 01/18/22 22:05 Hgb 11.0 g/dL (11.5-15.3) L 01/18/22 22:05 Hct 34.5 % (37.0-47.0) L 01/18/22 22:05 MCV 93.5 fl (81-99) 01/18/22 22:05 MCH 29.8 pg (28.0-34.0) 01/18/22 22:05 MCHC 31.9 g/dL (30.0-36.0) 01/18/22 22: RDW 13.3 % (12.1-15.1) 01/18/22 22:05 Plt Count 346 10^3/cmm (130-400) 01/18/22 22:05 MPV 10.1 fL (7.4-10.4) 01/18/22 22:05 Neut % (Auto) 66.6 % 01/18/22 22: Lymph % (Auto) 19.6 % 01/18/22 22:05 [place] % (Auto) 7.7 % 01/18/22:05 Eos % (Auto) 5.0 % 01/18/22 22:05 Baso % (Auto) 0.7 % 01/18/22 22:05 Neut # (Auto) 7.00 10^3/uL (1.8-7.7) 01/18/22 22: Lymph # (Auto) 2.1 10^3/uL (0.8-4.8) 01/18/22 22:05 [place] # (Auto) 0.8 10^3/uL (0.2-0.9) 01/18/22 22:05 Eos # (Auto) 0.5 10^3/uL (0.0-0.8) 01/18/22 22:05 Baso # (Auto) 0.1 10^3/uL (0.0-0.1) 01/18/22 22: Nucleated RBC % (auto) 0 % 01/18/22: Nucleated RBCs # 0.0 /100WBC 01/18/22 22:05 Sodium 137 mmol/L (136-145) 01/18/22 22:05 Potassium 3.9 mmol/L (3.5-5.1) 01/18/22 22:05 Chloride 102 mmol/L (98-107) 01/18/22 22:05 Carbon Dioxide 25 mmol/L (22-29) 01/18/22 22:05 Anion Gap 13.9 (5-19) 01/18/22 22:05 BUN 19 mg/dL (8-23) 01/18/22 22:05 Creatinine 0.9 mg/dL (0.5-0.9) 01/18/22 22:05 GFR Calculation 63.9 mL/min (90-130) L 01/18/22 22:05 Glucose 110 mg/dL (65-115) 01/18/22 22:05 Calculated Osmolality 287 mOsm/kg (285-295) 01/18/22 22:05 Lactate 0.7 mmol/L (0.5-2.2) 01/18/22 22:05 Calcium 9.0 mg/dL (8.5-10.5) 01/18/22 22:05 Total Bilirubin 0.2 mg/dL (0.15-1.2) 01/18/22 22:05 AST 10 U/L (0-32) 01/18/22 22:05 ALT 8 U/L (0-33) 01/18/22 22:05 Alkaline Phosphatase 129 U/L (35-105) H 01/18/22 22:05 Total Protein 7.0 g/dL (6.6-8.7) 01/18/22 22:05 Albumin 3.7 g/dL (3.5-5.2) 01/18/22 22:05 Globulin 3.3 g/dL (1.3-4.6) 01/18/22 22:05 Lipase 40 U/L (13-60) 01/18/22 22:05 Urine Color Red (Yellow) 01/18/22 21:46 Urine Appearance Bloody (CLEAR) A 01/18/22 21:46 Urine pH 7 (5-7) 01/18/22 21:46 Ur Specific [place] 1.010 (1.005-1.030) 01/18/22 21:46 Urine Protein 3+ (Negative) H 01/18/22 21:46 Urine Glucose (UA) Norm (Normal) 01/18/22 21:46 Urine Ketones Negative (Negative) 01/18/22 21:46 Urine Blood 3+ (Negative) H 01/18/22 21:46 Urine Nitrate Positive (Negative) H 01/18/22 21:46 Urine Bilirubin Neg (Negative) 01/18/22 21:46 Urine Urobilinogen Norm mg/dL (Negative) 01/18/22 21:46 Ur Leukocyte Esterase Trace (Negative) H 01/18/22 21:46 Urine RBC Too numerous to cnt /hpf (0-2) H 01/18/22 21:46 Urine WBC 15-25 /hpf (0-5) H 01/18/22 21:46 Ur Squamous Epith Cells None /hpf (0-5) 01/18/22 21:46 Amorphous Sediment Not Reportable 01/18/22 21:46 Urine Bacteria None /hpf (NONE) 01/18/22 21:46 Discharge Plan Discharge Patient Disposition: Xfer Short-Term Hosp Clinical Impression: Gross hematuria, Urinary tract infection, Bladder hemorrhage Condition: Stable Referrals: Nancy White, MARKETING DESIGNER-C [Primary Care Provider] - Coding Level of Care Code ED Housekeeping Assistant for Chg Fwd Exam Comprehensive
--- NOTE | 2022-01-18 21:47 | CTR_ITS ---
PROCEDURE INFORMATION: Exam: CT Abdomen And Pelvis Without Contrast Exam date and time: 01/18/2022 10:06 PM Age: 61 years old Clinical indication: Abdominal pain; Flank; Right; Prior surgery; Surgery date: 6+ months; Surgery type: Bladder surgery; Additional info: R flank pain, hematuria, HX kidney stones TECHNIQUE: Imaging protocol: Computed tomography of the abdomen and pelvis without contrast. Radiation optimization: All CT scans at this facility use at least one of these dose optimization techniques: automated exposure control; mA and/or kV adjustment per patient size (includes targeted exams where dose is matched to clinical indication); or iterative reconstruction. COMPARISON: CT abdomen pelvis wo con [id number] 11/13/2017 2:51 AM RADIATION DOSE METRICS: Total DLP (mGy-cm): 325.97 FINDINGS: Lungs: Left lower lobe 9.5 mm pulmonary nodule, dedicated nonemergent chest CT could further characterize this. Heart: Pericardial effusion measuring up to 11 mm somewhat visualized. Liver: Normal. No mass. Gallbladder and bile ducts: Normal. No calcified stones. No ductal dilation. Pancreas: Normal. No ductal dilation. Spleen: Normal. No splenomegaly. Adrenal glands: Normal. No mass. Kidneys and ureters: Right kidney chronic parenchymal atrophy. Stomach and bowel: Diverticulosis without diverticulitis. Appendix: No evidence of appendicitis. Intraperitoneal space: Unremarkable. No free air. No significant fluid collection. Vasculature: Fusiform infrarenal abdominal aortic aneurysm measuring up to 4.2 cm, somewhat increased in size compared to prior exam when it measured 3.3 cm, negative for findings of rupture, a CT with contrast could further evaluate this. Lymph nodes: Scattered prominent subcentimeter short axis periaortic lymph nodes, new compared to prior exam, nonspecific. Urinary bladder: Suspected blood products in the urinary bladder of uncertain etiology. Reproductive: Unremarkable as visualized. Bones/joints: L5 vertebral body superior endplate compression fracture without retropulsion of bony fragments. Soft tissues: Unremarkable. CT/CT kidney stone [id number] IMPRESSION: 1. Negative for focal acute inflammatory process in the abdomen or pelvis. 2. Fusiform infrarenal abdominal aortic aneurysm measuring up to 4.2 cm, somewhat increased in size compared to prior exam when it measured 3.3 cm, negative for findings of rupture, a CT with contrast could further evaluate this. 3. Scattered prominent subcentimeter short axis periaortic lymph nodes, new compared to prior exam, nonspecific. 4. Left lower lobe 9.5 mm pulmonary nodule, dedicated nonemergent chest CT could further characterize this. 5. Pericardial effusion measuring up to 11 mm somewhat visualized. 6. Right kidney chronic parenchymal atrophy. 7. Diverticulosis without diverticulitis. 8. Suspected blood products in the urinary bladder of uncertain etiology. 9. L5 vertebral body superior endplate compression fracture without retropulsion of bony fragments.
[2022-01-18 22:00] VITALS: BP 136/89; PULSE 110; RESP 17; O2SAT 95
[2022-01-18 22:04] VITALS: RESP 15
[2022-01-18] MEDS: tamsulosin 0.4 mg Capsule PO (22:04)
[2022-01-18] MEDS: HYDROmorphone 1 mg/mL INJ 1 mL IVP (22:04)
[2022-01-18 22:15] LABS: Basophils # 0.1 10^3/uL (0.0-0.1); Basophils % 0.7 %; Eosinophils # 0.5 10^3/uL (0.0-0.8); Hematocrit 34.5 % (37.0-47.0); Lymphocytes # 2.1 10^3/uL (0.8-4.8); Lymphocytes % 19.6 %; Mean Corpuscular HGB Conc 31.9 g/dL (30.0-36.0); Mean Corpuscular Hemoglobin 29.8 pg (28.0-34.0); Mean Corpuscular Volume 93.5 fl (81-99); Mean Platelet Volume 10.1 fL (7.4-10.4); Monocytes # 0.8 10^3/uL (0.2-0.9); Monocytes % 7.7 %; Neutrophils % 66.6 %; Nucleated Red Blood Cells % 0 %; Platelet Count 346 10^3/cmm (130-400); Red Blood Count 3.69 10^6/uL (4.1-5.3); Red Cell Distribution Width 13.3 % (12.1-15.1); White Blood Count 10.5 10^3/uL (4.0-10.0)
[2022-01-18] MEDS: ondansetron 2 mg/ML SDV 2 mL 4 MG IVP (22:20)
[2022-01-18 22:39] LABS: Alanine Aminotransferase 8 U/L (0-33); Albumin Level 3.7 g/dL (3.5-5.2); Alkaline Phosphatase 129 U/L (35-105); Anion Gap 13.9 (5-19); Aspartate Amino Transferase 10 U/L (0-32); Blood Urea Nitrogen 19 mg/dL (8-23); Carbon Dioxide 25 mmol/L (22-29); Chloride 102 mmol/L (98-107); Globulin 3.3 g/dL (1.3-4.6); Glomerular Filtration Rate 63.9 mL/min (90-130); Glucose 110 mg/dL (65-115); Lipase 40 U/L (13-60); Osmolality Calculated 287 mOsm/kg (285-295); Potassium 3.9 mmol/L (3.5-5.1); Sodium 137 mmol/L (136-145); Total Bilirubin 0.2 mg/dL (0.15-1.2)
[2022-01-18 22:40] LABS: Lactate (Lactic Acid level) 0.7 mmol/L (0.5-2.2)
[2022-01-18 22:48] LABS: Leukocyte Esterase Urine Trace (Negative); Nitrate Urine Positive (Negative); Urine Appearance Bloody (CLEAR); Urine Color Red (Yellow); pH Urine 7 (5-7)
[2022-01-18 22:49] LABS: Add Urine Microscopic? YES; Bilirubin Urine Neg (Negative); Blood Urine 3+ (Negative); Glucose Urine UA Norm (Normal); Ketones Urine Negative (Negative); Protein Urine 3+ (Negative); Urobilinogen Urine Norm (Negative)
[2022-01-18 22:51] LABS: RBC Urine TOO NUMEROUS TO CNT /hpf (0-2); WBC Urine 15-25 /hpf (0-5)
[2022-01-18 22:53] LABS: Add Urine Culture? Yes
[2022-01-18] MEDS: prochlorperazine 10 mg/2 mL Inj IVP (22:53)
[2022-01-18 23:00] VITALS: BP 144/69; PULSE 99; RESP 19; O2SAT 86
[2022-01-18 23:30] VITALS: PULSE 87; RESP 11; O2SAT 93
[2022-01-19] VITALS (8 sets, daily range): BP systolic 123–150; BP diastolic 66–79; PULSE 91–106; RESP 13–20; O2SAT 92–99
[2022-01-19] MEDS: phenazopyridine 100 mg Tablet PO (00:41)
[2022-01-19] MEDS: levofloxacin-dextrose 5 % 750 MG/150 ML PREMIX 100 MG IV (00:41)
[2022-01-19] MEDS: morphine 4 mg/mL SDV 1 mL IVP (01:00)
[2022-01-19] MEDS: sodium chloride 0.9% 500 ML 999 ML IV (01:01)
--- NOTE | 2022-01-19 03:57 | PC.NURSE ---
Report called to Jessica Santos RN at [facility].
[2022-01-19] MEDS: ondansetron 2 mg/ML SDV 2 mL 4 MG IVP (07:42)
[2022-01-19] MEDS: HYDROmorphone 1 mg/mL INJ 1 mL 0.5 MG IVP (07:44)
== END 2022-01-19 07:50 | disposition short-term general hospital (02) ==
PROVIDERS: Emergency Medicine; Emergency Provider Emergency Medicine; PCP Nurse Practitioner
DX: N39.0 Urinary tract infection, site not specified (principal); R31.0 Gross hematuria; N32.89 Other specified disorders of bladder; Z79.82 Long term (current) use of aspirin; F17.210 Nicotine dependence, cigarettes, uncomplicated; I25.10 Atherosclerotic heart disease of native coronary artery without angina pectoris; J44.9 Chronic obstructive pulmonary disease, unspecified; I10 Essential (primary) hypertension
CPT/HCPCS: 36415; 51702; 74176; 80053; 81001; 83605; 83690; 85025; 87040; 87077; 87086; 87186; 96365; 96375; 96376; 99285; J0780; J1170; J1956; J2270; J2405; J7040

== ENCOUNTER 2022-03-20 14:48 | Oncology outpatient (recurring) (ONCR) | payer MEDICAID, SELFPAY | END 2022-04-16 23:59 | disposition home or self-care (01) | LOC: ONCMED 14:50 | PROVIDERS: Visit Provider Internal Medicine Hematology & Oncology | DX: C67.8 Malignant neoplasm of overlapping sites of bladder (principal); C77.8 Secondary and unspecified malignant neoplasm of lymph nodes of multiple regions; C78.01 Secondary malignant neoplasm of right lung; C78.02 Secondary malignant neoplasm of left lung; I31.39 Other pericardial effusion (noninflammatory); N26.1 Atrophy of kidney (terminal); Z79.891 Long term (current) use of opiate analgesic; Z79.899 Other long term (current) drug therapy; Z95.828 Presence of other vascular implants and grafts | CPT/HCPCS: 99204 ==

== ENCOUNTER → 2022-03-28 14:43 | Outpatient (BNVA) | payer MEDICAID, SELFPAY | PROVIDERS: Referring Provider Internal Medicine Hematology & Oncology; Visit Provider Surgery | DX: C67.9 Malignant neoplasm of bladder, unspecified (principal) | CPT/HCPCS: 99203 ==

== ENCOUNTER → 2022-04-02 11:32 | Outpatient (BNVA) | payer MEDICAID, SELFPAY | PROVIDERS: Visit Provider Nurse Practitioner Family | DX: R30.0 Dysuria (principal) | CPT/HCPCS: 81000 ==

== ENCOUNTER 2022-04-05 14:19 | Outpatient (CLI) | payer MEDICAID, SELFPAY ==
[2022-04-05 15:04] LABS: Urine Creatinine 46 mg/dL (28-217)
[2022-04-05 15:11] LABS: Total Volume Urine 1800 ml
== END 2022-04-05 14:20 | disposition home or self-care (01) ==
LOC: LAB 14:21
PROVIDERS: Visit Provider Internal Medicine Hematology & Oncology
DX: Z79.899 Other long term (current) drug therapy (principal)
CPT/HCPCS: 82570

== ENCOUNTER 2022-06-11 08:53 | Outpatient (CLI) | payer MEDICAID, SELFPAY ==
--- NOTE | 2022-06-11 09:00 | USCV_ITS ---
Skye Ambrose Age: 62 Gender: F : 1960 Exam Date: 06/11/2022 09:12 Ordering Phys: Kalli Manley MD Technologist: Exam [place] [facility] [place]: high risk meds BP: 110 / 67 HR: 97 Rhythm: Sinus Technical Quality: Adequate MEASUREMENTS (Male / Female) Normal Values 2D ECHO LV Diastolic Diameter PLAX 4.3 cm 4.2 - 5.9 / 3.9 - 5.3 cm LV Systolic Diameter PLAX 3.4 cm IVS Diastolic Thickness 1.1 cm 0.6 - 1.0 / 0.6 - 0.9 cm IVS Systolic Thickness 1.4 cm LVPW Diastolic Thickness 1.4 cm 0.6 - 1.0 / 0.6 - 0.9 cm LVPW Systolic Thickness 1.2 cm LVOT Diameter 1.9 cm LV Ejection Fraction 2D Teich 30.8 % LV Ejection Fraction MOD 2C 34.4 % LV Ejection Fraction 2C AL 35.6 % LA Diameter 4.1 cm IVC Diameter 1.3 cm M-MODE Aortic Annulus Diameter 3.1 cm LA Ao Ratio MM 1.4 MV E Point Septal Separation 1.4 cm FINDINGS Left Ventricle Mildly dilated LV cavity. Diffuse hypokinesia left-ventricular. Ejection fraction of 42% Right Ventricle Normal right ventricular size and systolic function. Right Atrium Normal right atrial size. Left Atrium Mildly increased left atrial size. Mitral Valve Thickened mitral valve. Aortic Valve Thickened aortic valve. Tricuspid Valve No gross abnormalities noted Pulmonic Valve No gross abnormalities noted Pericardium Trivial pericardial effusion. Aorta Normal aortic annulus size. IVC Normal inferior vena cava. CONCLUSIONS Mildly dilated LV cavity. Diffuse hypokinesia left-ventricular. Ejection fraction of 42%. Mildly increased left atrial size. Thickened mitral valve. Thickened aortic valve. Trivial pericardial effusion. Compared to the study from 02/17/2020, there may not be a significant change Dr Neelam Salas MD [facility] (Electronically Signed) Final Date: 12 June 2022 23:18 S
== END 2022-06-11 08:54 | disposition home or self-care (01) ==
LOC: RAD 08:55
PROVIDERS: Visit Provider Internal Medicine Hematology & Oncology
DX: Z79.899 Other long term (current) drug therapy (principal); I08.0 Rheumatic disorders of both mitral and aortic valves; I31.39 Other pericardial effusion (noninflammatory)
CPT/HCPCS: 93308

== ENCOUNTER 2022-06-12 17:59 | Observation (INO) | payer MEDICAID, SELFPAY ==
[2022-06-11 13:40] VITALS: BMI 20.7
[2022-06-12] VITALS (36 sets, daily range): BP systolic 88–172; BP diastolic 52–95; PULSE 85–107; RESP 16–32; TEMP 36.3–37.1; O2SAT 89–100
--- NOTE | 2022-06-12 | XR_ITS ---
WS: [id number] Exam: XR chest 1V portable [id number] Date/Time of Exam: 06/12/2022 2:37 PM Reason For Exam: POST PORTACATH Comparison 05/12/2018. There is approximately 25% pneumothorax of the left lung. No midline shift or tension noted. The righ t lung is clear and fully expanded. No pleural effusions. Mild cardiac enlargement. A left-sided sub clavian port ends at the cavoatrial junction. Bony structures are intact. XR/XR chest 1V portable [id number] IMPRESSION: 1. 25% pneumothorax of the left lung. 2. Left subclavian port indicating at the cavoatrial junction in satisfactory p osition. 3. Mild cardiac enlargement. These findings were discussed by phone with Dr. Diez, the attending surgeon at 2:57 PM 06/12/2022
[2022-06-12] MEDS: HYDROmorphone 1 mg/mL INJ 1 mL 0.5 MG IVP ×2 (11:10→20:08)
--- NOTE | 2022-06-12 11:26 | ANES.PREANE2 ---
Pre-Anesthetic Assessment Height/Weight: Height 1.55 m Weight 49.895 kg Temp Pulse Resp Pulse Ox O2 Del Method 97.6 F 107 H 18 98 06/12/22 10:42 06/12/22 10:42 06/12/22 11:10 06/12/22 11:10 06/12/22 10:45 Preop Diagnosis: Bladder Cancer Operation Date: 06/12/22 12:00 Proposed Procedures p [id number] port placement C67.9(Not Applicable) - Burak Diez DO Familial anesthetic complications: none Was Beta Юлия taken within 24 hours: N/A Was Clonidine taken within 24 hours: N/A Last intake: Intake Last Liquid Date 06/11/22 Last Liquid Time 04:00 Last Solid Date 06/11/22 Last Solid Time 19:00 Social Tobacco and No alcohol Exam alert, oriented x 3 and regular rate & rhythm Airway Submandibular: within normal limits Cervical ROM: within normal limits Mallampati: Class II Dentition: false Pulmonary Chronic Obstructive Pulmonary Disease CV/HEM Hypertension Bladder CA Musc/skel Lower Back Pain and Osteoarthritis/DJD Neuropsych Anxiety and Depression Anesthetic Plan ASA status: 3 Anesthesia: Choice Medications/Allergies Home Medications Medication Instructions Recorded Confirmed Last Taken Type artifi.tears(hypromellose)(PF) 0.3 1 drp ophthalmic (eye) DAILY PRN 03/20/22 06/12/22 06/11/22 History % eye drops right eye [id number]-[id number] 250 2 tab PO QID PRN Pain 03/20/22 06/12/22 06/11/22 History mg-250 mg-65 mg tablet albuterol sulfate 2.5 mg/3 mL 2.5 mg (3 mL) inhalation Q4H PRN 04/02/22 06/12/22 06/12/22 07:00 Rx (0.083 %) solution for nebulization shortness of breath or wheezing #300 mL albuterol sulfate 90 mcg/actuation 2 puff inhalation Q6H PRN 04/02/22 06/12/22 06/12/22 07:00 Rx aerosol inhaler (ProAir HFA) shortness of breath or wheezing #18 grams budesonide 0.5 mg/2 mL suspension 0.5 mg (2 mL) inhalation BID #120 04/02/22 06/12/22 06/11/22 Rx for nebulization (Pulmicort) mL epinephrine 0.3 mg/0.3 mL 0.3 mg (0.3 mL) IM Q10M PRN 04/02/22 06/12/22 04/15/22 Rx injection, auto-injector (EpiPen) anaphylaxis #1 ea fluticasone propionate 50 2 spray intranasal DAILY #16 grams 04/02/22 06/12/22 06/11/22 Rx mcg/actuation nasal spray,suspension (Allergy Relief (fluticasone)) furosemide 40 mg tablet 80 mg PO DAILY #60 tabs 04/02/22 06/12/22 06/11/22 Rx lidocaine 5 % topical patch 1 patch topical DAILY PRN pain #30 04/02/22 06/12/22 06/04/22 Rx ea potassium chloride 40 mEq/15 mL 40 meq (15 mL) PO DAILY #450 mL 04/02/22 06/12/22 06/11/22 Rx oral liquid valacyclovir 1 gram tablet 1,000 mg PO DAILY 30 days #30 tabs 04/02/22 06/12/22 06/11/22 Rx nystatin 100,000 unit/mL oral 4 - 6 ml PO DAILY #473 mL 04/04/22 06/12/22 05/28/22 Rx suspension Allergies Allergy/AdvReac Type Severity Reaction Status Date / Time ceftriaxone [From Rocephin] Allergy Severe ALGY-Anaphy Verified 06/12/22 10:38 laxis cephalexin [From Keflex] Allergy Severe ALGY-Anaphy Verified 06/12/22 10:38 laxis eszopiclone [Lunesta] Allergy Severe ADR-Agitate Verified 06/12/22 10:38 d zaleplon [From Sonata] Allergy Severe ADR-Halluci Verified 06/12/22 10:38 nating zolpidem [From Ambien] Allergy Severe ADR-Halluci Verified 06/12/22 10:38 nating dextromethorphan Allergy Intermediate ADR-Halluci Verified 06/12/22 10:38 nating Iodinated Contrast Media Allergy UNK Verified 06/12/22 10:38 ketoprofen Allergy Unknown Verified 06/12/22 10:38 ketorolac [From Toradol] Allergy UNK Verified 06/12/22 10:38 mirtazapine [From Remeron] Allergy UNK Verified 06/12/22 10:38 nitrofurantoin Allergy UNK Verified 06/12/22 10:38 [From Macrobid] rofecoxib [From Vioxx] Allergy UNK Verified 06/12/22 10:38 sulfamethoxazole Allergy UNK Verified 06/12/22 10:38 [From Bactrim] sumatriptan [From Imitrex] Allergy UNK Verified 06/12/22 10:38 trimethoprim [From Bactrim] Allergy UNK Verified 06/12/22 10:38 Current Medications Generic Name Dose Route Start Last Admin Trade Name Freq PRN Reason Stop Dose Admin Hydromorphone HCl 0.5 mg 06/12/22 10:28 06/12/22 11:10 Hydromorphone 1 Mg/Ml Inj 1 Ml IVP 0.5 mg ONCE PRN Administration For preop pain/anxiety FOR[facility] Anesthesia Medical History Allergy to iodine Anxiety, generalized Bladder cancer CAD (coronary artery disease) Chronic post-traumatic stress disorder (PTSD) COPD (chronic obstructive pulmonary disease) Hypertension Lumbar radiculopathy, chronic Post herpetic neuralgia Vitamin D insufficiency Surgical History History of abdominoplasty History of bladder surgery History of breast augmentation Saline History of heart artery stent 2 stents September 2013 History of tubal ligation Family History Sister Diabetes Brother Diabetes Denies family history of Bleeding disorder Social History Smoking and tobacco status: current every day smoker Second hand smoke exposure: Yes Smoking risk assessment/counseling performed?: Yes Alcohol intake: unknown Desire information about alcohol rehabilitation?: No Counseling given: No Desire information about substance/drug rehabilitation?: No Counseling given: No Adopted: No Caregiver/support person: No Lives independently: Yes Household members: spouse Marital status: Number of children: 5 service: No Current gender identity: Female Data Anesthesia Cardiac Studies: Echocardiogram Ultrasound 02/17/20
--- NOTE | 2022-06-12 12:03 | PM.HP ---
Providers/Chief Complaint Chief Complaint: C67.9 History of Present Illness Skye Ambrose is a 62 year old female with bladder cancer who requires Mediport insertion for chemotherapy access as requested by oncology Medications/Allergies Home Medications Medication Instructions Recorded Confirmed Last Taken Type artifi.tears(hypromellose)(PF) 0.3 1 drp ophthalmic (eye) DAILY PRN 03/20/22 06/12/22 06/11/22 History % eye drops right eye zmugbig-lyawvpdwoivlx-tjnebvgr 250 2 tab PO QID PRN Pain 03/20/22 06/12/22 06/11/22 History mg-250 mg-65 mg tablet albuterol sulfate 2.5 mg/3 mL 2.5 mg (3 mL) inhalation Q4H PRN 04/02/22 06/12/22 06/12/22 07:00 Rx (0.083 %) solution for nebulization shortness of breath or wheezing #300 mL albuterol sulfate 90 mcg/actuation 2 puff inhalation Q6H PRN 04/02/22 06/12/22 06/12/22 07:00 Rx aerosol inhaler (ProAir HFA) shortness of breath or wheezing #18 grams budesonide 0.5 mg/2 mL suspension 0.5 mg (2 mL) inhalation BID #120 04/02/22 06/12/22 06/11/22 Rx for nebulization (Pulmicort) mL epinephrine 0.3 mg/0.3 mL 0.3 mg (0.3 mL) IM Q10M PRN 04/02/22 06/12/22 04/15/22 Rx injection, auto-injector (EpiPen) anaphylaxis #1 ea fluticasone propionate 50 2 spray intranasal DAILY #16 grams 04/02/22 06/12/22 06/11/22 Rx mcg/actuation nasal spray,suspension (Allergy Relief (fluticasone)) furosemide 40 mg tablet 80 mg PO DAILY #60 tabs 04/02/22 06/12/22 06/11/22 Rx lidocaine 5 % topical patch 1 patch topical DAILY PRN pain #30 04/02/22 06/12/22 06/04/22 Rx ea potassium chloride 40 mEq/15 mL 40 meq (15 mL) PO DAILY #450 mL 04/02/22 06/12/22 06/11/22 Rx oral liquid valacyclovir 1 gram tablet 1,000 mg PO DAILY 30 days #30 tabs 04/02/22 06/12/22 06/11/22 Rx nystatin 100,000 unit/mL oral 4 - 6 ml PO DAILY #473 mL 04/04/22 06/12/22 05/28/22 Rx suspension Allergies Allergy/AdvReac Type Severity Reaction Status Date / Time ceftriaxone [From Rocephin] Allergy Severe ALGY-Anaphy Verified 06/12/22 10:38 laxis cephalexin [From Keflex] Allergy Severe ALGY-Anaphy Verified 06/12/22 10:38 laxis eszopiclone [Lunesta] Allergy Severe ADR-Agitate Verified 06/12/22 10:38 d zaleplon [From Sonata] Allergy Severe ADR-Halluci Verified 06/12/22 10:38 nating zolpidem [From Ambien] Allergy Severe ADR-Halluci Verified 06/12/22 10:38 nating dextromethorphan Allergy Intermediate ADR-Halluci Verified 06/12/22 10:38 nating Iodinated Contrast Media Allergy UNK Verified 06/12/22 10:38 ketoprofen Allergy Unknown Verified 06/12/22 10:38 ketorolac [From Toradol] Allergy UNK Verified 06/12/22 10:38 mirtazapine [From Remeron] Allergy UNK Verified 06/12/22 10:38 nitrofurantoin Allergy UNK Verified 06/12/22 10:38 [From Macrobid] rofecoxib [From Vioxx] Allergy UNK Verified 06/12/22 10:38 sulfamethoxazole Allergy UNK Verified 06/12/22 10:38 [From Bactrim] sumatriptan [From Imitrex] Allergy UNK Verified 06/12/22 10:38 trimethoprim [From Bactrim] Allergy UNK Verified 06/12/22 10:38 PFSH Acute PFSH: Medical History Allergy to iodine Anxiety, generalized Bladder cancer CAD (coronary artery disease) Chronic post-traumatic stress disorder (PTSD) COPD (chronic obstructive pulmonary disease) Hypertension Lumbar radiculopathy, chronic Post herpetic neuralgia Vitamin D insufficiency Surgical History History of abdominoplasty History of bladder surgery History of breast augmentation Saline History of heart artery stent 2 stents September 2013 History of tubal ligation Family History Sister Diabetes Brother Diabetes Denies family history of Bleeding disorder Social History Smoking and tobacco status: current every day smoker Second hand smoke exposure: Yes Smoking risk assessment/counseling performed?: Yes Alcohol intake: unknown Desire information about alcohol rehabilitation?: No Counseling given: No Desire information about substance/drug rehabilitation?: No Counseling given: No Adopted: No Caregiver/support person: No Lives independently: Yes Household members: spouse Marital status: Number of children: 5 service: No Current gender identity: Female Vitals/I&O/Wt Last Vital Signs Temp 97.6 F 06/12/22 10:42 Pulse 107 H 06/12/22 10:42 Resp 18 06/12/22 11:10 Pulse Ox 98 06/12/22 11:10 O2 Del Method 06/12/22 10:45 Weight last 48 hrs Weight 110 lb A&P Assessment and plan (1) Bladder cancer: Plan Mediport insertion The risks and benefits were explained and documented Attestations Medical Necessity Statement*: Home Coding Level of Care Code Acute Code for g Fwd Diagnoses Bladder cancer C67.9
[2022-06-12] MEDS: sodium chloride 0.9% 1,000 ML 100 ML IV (12:30)
--- NOTE | 2022-06-12 12:42 | SC_ITS ---
WS: [id number] Exam: C-arm FL for CVA [id number] Date/Time of Exam: 06/12/2022 12:42 PM Reason For Exam: surgery A single intraoperative anterior-posterior C-arm image of the chest is submitted for evaluation. The image depicts a left subclavian port ending at the expected region of the cavoatrial junction. Th e visualized heart and lung wood are unremarkable on this limited study. No other significant findi ng.
[2022-06-12] MEDS: vancomycin 1,000 MG in sodium chloride 0.9% 250 ML 250 MG IV (13:00)
--- NOTE | 2022-06-12 14:00 | P.OP_ITS ---
Operative Report Date of procedure: June 12, 2022 Pre-op diagnosis: Preop Diagnosis Bladder Cancer Post-op diagnosis: same Procedure done: Mediport insertion Implants: PowerPort Specimens removed/disposition: None Surgeon: Dr. Burak Diez DO Anesthesia: MAC Estimated blood loss (mL): 5 Complications: None apparent Brief History: This is a very pleasant 62-year-old female with bladder cancer. Mediport insertion was necessary for chemotherapy infusions. The risks and benefits were explained and documented. Procedure: They put another order I will do right now things the patient was taken to the operating room and placed supine on the operating room table. All bony prominences were padded. She was given IV sedation and monitored throughout the case by the anesthesia personnel. SCDs were placed and turned on. The arms were tucked to the side. Patient received Ancef 2 g preoperatively IV. The bilateral chest wall was prepped and draped in usual sterile fashion using chlorhexidine base prep. Sterile drapes were applied. We did procedure pause prior to beginning. An 18 gauge needle was placed in the left subclavian vein. Dark, nonpulsatile blood was aspirated. A guidewire was placed through the needle centrally toward the atrial/vena caval junction. Fluoroscopy visualized good placement. The needle was removed and the guidewire was clipped to the drape with a hemostat. Further local anesthetic was infiltrated in the soft tissues of the left chest wall and a #15 blade was used to make a horizontal skin incision. A subcutaneous Mediport pocket was created using Bovie cautery, dissecting down through the skin and subcutaneous tissues. Meticulous hemostasis was achieved. The Mediport was sutured in position using 3-0 vicryl suture x2 stitches. A #15 blade was used to make a small skin nessa around the guidewire insertion area. The Mediport tubing was tunneled through the subcutaneous tissues up to th e needle insertion location. A dilator with a peel-away sheath was placed over the guidewire and placed centrally. After measuring the Mediport tubing was cut to length so that the tip would end at the atrial/vena caval junction. The inner cannula and the guidewire were removed, leaving the dilator sheath in place. The Mediport was flushed. The tip of the catheter was inserted through the peel-away sheath and the peel-away sheath removed in the standard fashion. The Mediport was accessed with a straight Mi needle and dark, nonpulsatile blood was aspirated and flushed using heparinized saline to hep-lock the Mediport. Final fluoroscopy visualization showed no kink in the catheter and the tip of the Mediport tubing near the atrial/vena caval junction. Both skin incisions were thoroughly irrigated and suctioned dry. Meticulous hemostasis noted. The dermis was approximated with 3-0 Vicryl in an interrupted fashion. Skin was closed with Dermabond. Patient was awakened from anesthesia and transferred via her cart to the recovery room in stable condition. All needle, sponge, and instrument counts were correct per the operating personnel x2 counts.
[2022-06-12] MEDS: lidocaine-epi 2% 20 mL INJ 10 ML INJECTION (14:01)
[2022-06-12] MEDS: heparin, porcine 1,000 unit/mL INJ 10 mL 10000 UNIT IRRIGATION (14:03)
--- NOTE | 2022-06-12 14:04 | PM.OP ---
Operative Report Date of procedure: June 12, 2022 Pre-op diagnosis: Preop Diagnosis iatrogenic left pneumothorax Procedure done: Thora vent placed in left hemithorax Implants: For event Surgeon: Dr. Burak Diez DO Anesthesia: MAC Estimated blood loss (mL): 5 Complications: None apparent Brief History: Patient underwent left subclavian Mediport placement earlier today. While the needle was being used to access the left subclavian vein, she coughed very hard and sat up, causing the needle apparently to inadvertently nessa the pleura of her left lung. Postoperative chest x-ray showed pneumothorax. Thora vent placement is indicated. The risk and benefits were explained and documented. Procedure: The left chest was appropriately prepped and draped. Adequate anesthesia was achieved by department of anesthesia. At this time a Heimlich valve was placed into the second intercostal space anteriorly in the midclavicular line.? This was hooked to suction.? After the initial air was suctioned out there was no air leak.? Heimlich valve was sewn in place with 3-0 silk.
--- NOTE | 2022-06-12 14:29 | PC.NURSE ---
requested breathing treatment then refused to take breathing treatment.
[2022-06-12] MEDS: ondansetron 2 mg/ML SDV 2 mL 4 MG IVP ×3 (14:55→20:08)
[2022-06-12] MEDS: HYDROcodone-acetaminophen 5-325 mg Tablet 1 TAB PO ×2 (14:56→19:01)
--- NOTE | 2022-06-12 15:07 | SUR.PHASEII ---
PATIENT TRANSFERRED BACK TO PACU FOR A PROCEDURE. AWARE THAT PATIENT HAD ATE HALF A MICKY CRACKER AND A FEW SIPS OF SPRITE
--- NOTE | 2022-06-12 15:09 | PC.NURSE ---
Returned to pacu for chest tube placement
--- NOTE | 2022-06-12 15:15 | PC.NURSE ---
Dr. Diez @ bedside for chest tube placement
--- NOTE | 2022-06-12 15:16 | SUR.PHASEII ---
physician also aware patient had zofran 4mg ivp and hydrocodone 5-325 po
--- NOTE | 2022-06-12 15:32 | XR_ITS ---
WS: [id number] Exam: XR chest 1V portable [id number] Date/Time of Exam: 06/12/2022 3:32 PM Reason For Exam: post chest tube placement Comparison with previous exam performed earlier on the same day at 1:36 PM. A small caliber left thoracostomy tube is in place in the medial left pleural cavity. The left lung i s almost completely expanded. There may be a tiny left apical pneumothorax present. Left-sided port r emains in good position. The right lung remains clear and fully inflated. Mild cardiac enlargement. XR/XR chest 1V portable [id number] IMPRESSION: 1. Small caliber left thoracostomy tube in place. The left lung is almost compl etely expanded. There may be a tiny left apical pneumothorax present. No other change in the overall appearance the chest.
[2022-06-12 15:40] LABS: Glucose Point of Care 101 mg/dL (70-110)
--- NOTE | 2022-06-12 16:04 | PC.NURSE ---
Chest tube insertion completed @ [id number]
[2022-06-12] MEDS: fentaNYL 50 mcg/mL INJ 2mL 100 MCG (16:15)
--- NOTE | 2022-06-12 16:36 | PC.NURSE ---
Returned to obs. Patient was posted with pain management needed once. Zofran for nausea post fentanyl.
--- NOTE | 2022-06-12 16:47 | ANE.PACU2 ---
Inpatient post-anesthesia follow up: Airway intact: Yes Vital signs: Temperature 97.4 F Pulse Rate 105 Respiratory Rate 19 Blood Pressure 167/95 Pulse Oximetry 99 Oxygen Delivery Me thod Simple Mask Oxygen Flow Rate 8 Fraction of Inspir ed Oxygen Hydration adequate: Yes Nausea and vomiting: No Pain level: 4 Mental status: Baseline Additional Comments: Noted to have significant PTX left chest on CXR in PACU, patient sedated lightly with propofol 60mg for placement of thoracic vent by Dr. Diez. Patient tolerated well.
--- NOTE | 2022-06-12 18:16 | SUR.PHASEI ---
1816-Patient to be admitted observation. VS stable other than O2 sats continue to drop without O2 to mid 80s. Report was called to MS RN, will transfer patient via [facility].
--- NOTE | 2022-06-12 19:49 | PC.NURSE ---
Patient educated not to get out of bed without assistance. Patient states I can get up if I want to. Patient educated that thoravent could become removed from chest and it could become a very dangerous, life-threatening situation. Patient stated I'm not a fucking clutz. I ain't gonna rip it out. Patient educated that it could easily happen by accident and that she needs to make sure a staff member is there to help her when she gets up. Patient states I can get up when I want. Patient's bed alarm set.
--- NOTE | 2022-06-12 19:54 | PC.NURSE ---
Patient given PRN Darwin for pain during bedside report. Patient rolled her eyes and stated that's not gonna do anything. They told me I was going to have Dilaudid every hour. Dr. Diez notified. Dilaudid q3h PRN ordered. Morphine discontinued.
[2022-06-12] MEDS: heparin 5,000 unit/mL INJ 1 mL 5000 UNIT SUBCUT (20:08)
[2022-06-12] MEDS: nicotine 14 mg Patch 1 PATCH TRANSDERMA (20:09)
--- NOTE | 2022-06-12 20:46 | PC.NURSE ---
Debby HERNANDEZ answered patient's call light. Per TOOL SMITH, patient stated to DAVID, where's my nurse, it's called a nurse's button for a reason.
--- NOTE | 2022-06-12 21:19 | PC.NURSE ---
Addendum entered by Lavinia Hopson RN 06/12/22 21:21: Dr. Diez notified by VINCENZO Morgan. Original Note: Patient refusing IV fluids stating If they're not gonna check my fucking labs to see if I need them, then I'm just going to refuse them.
[2022-06-13] VITALS (9 sets, daily range): BP systolic 123–148; BP diastolic 62–77; PULSE 98–110; RESP 16–24; TEMP 36.4–38.2; O2SAT 91–95
[2022-06-13] MEDS: HYDROmorphone 1 mg/mL INJ 1 mL 0.5 MG IVP ×6 (00:04→17:54)
[2022-06-13 01:24] LABS: Anion Gap 10.8 (5-19); Blood Urea Nitrogen 16 mg/dL (8-23); Calcium 8.6 mg/dL (8.5-10.5); Carbon Dioxide 28 mmol/L (22-29); Chloride 99 mmol/L (98-107); Glomerular Filtration Rate 56.4 mL/min (90-130); Glucose 103 mg/dL (65-115); Osmolality Calculated 279 mOsm/kg (285-295); Potassium 3.8 mmol/L (3.5-5.1); Sodium 134 mmol/L (136-145)
[2022-06-13] MEDS: HYDROcodone-acetaminophen 5-325 mg Tablet 1 TAB PO ×4 (03:03→16:46)
[2022-06-13] MEDS: ondansetron 2 mg/ML SDV 2 mL 4 MG IVP ×2 (03:33→12:09)
--- NOTE | 2022-06-13 05:00 | XR_ITS ---
WS: [id number] Exam: XR chest 2V* [id number] Date/Time of Exam: 06/13/2022 5:48 AM Reason For Exam: Thoravent in place Compared to the last exam performed 06/12/2022 at the 2:57 PM. The left lung is fully inflated and roge ar. Small bore left thoracostomy tube in place in the medial left pleural cavity. The right lung is c lear. Normal cardiomediastinal silhouette. A left subclavian port ends at the cavoatrial junction. No pleural effusions. Bony structures are intact. XR/XR chest 2V* [id number] IMPRESSION: 1. Resolved left pneumothorax. No acute cardiopulmonary finding.
[2022-06-13] MEDS: fluticasone nasal spray 16gm Btl 2 SPRAY INTRANASAL (09:04)
[2022-06-13] MEDS: FUROsemide 40 mg Tablet 80 MG PO (09:04)
[2022-06-13] MEDS: heparin 5,000 unit/mL INJ 1 mL 5000 UNIT SUBCUT (09:05)
[2022-06-13] MEDS: nystatin 100,000 unit/mL UDC 5 mL 500000 UNIT PO (09:05)
[2022-06-13] MEDS: valACYclovir 1,000 mg Tablet 1000 MG PO (09:06)
[2022-06-13] MEDS: potassium chloride ER 20 mEq Tablet 40 MEQ PO (09:06)
--- NOTE | 2022-06-13 12:22 | PC.NURSE ---
Notified Pharmacy of medication scanned but did not document. Had wrapper in had but could not scan barcode. Pharmacist stated to document it on MAY.
--- NOTE | 2022-06-13 12:56 | XR_ITS ---
WS: [id number] Exam: XR chest 1V portable [id number] Date/Time of Exam: 06/13/2022 12:59 PM Reason For Exam: on waterseal, for removal Comparison made with most recent exam performed on 06/13/2022 at 6:39 AM. The left lung remains clear and fully inflated. The right lung is clear. Heart size upper limits norm al. No pleural effusions. Small caliber left thoracostomy tube the in place unchanged in position. A left subclavian port ends at the cavoatrial junction. Bony structures are intact. XR/XR chest 1V portable [id number] IMPRESSION: 1. Resolved left pneumothorax. No acute process noted.
--- NOTE | 2022-06-13 13:49 | XR_ITS ---
WS: [id number] Exam: XR chest 1V portable [id number] Date/Time of Exam: 06/13/2022 1:49 PM Reason For Exam: s/p thoravent removal Comparison 06/13/2022. The lungs remain fully inflated. Left thoracostomy tube is been removed. Cardiomediastinal silhouette is unchanged. A left subclavian port ends at the cavoatrial junction. No pleural effusion. Bony [place] ents are intact. XR/XR chest 1V portable [id number] IMPRESSION: 1. Left-sided thoracostomy tube has been removed. The lungs remain fully expand ed and clear. No acute finding.
[2022-06-13] MEDS: sennosides-docusate Tablet 2 TAB PO (14:22)
--- NOTE | 2022-06-13 16:30 | XRR_ITS ---
PROCEDURE INFORMATION: Exam: XR Chest Exam date and time: 06/13/2022 3:46 PM Age: 62 years old Clinical indication: Device placement; Other: Thoravent removal; Prior surgery; Surgery type: Chest tube; Additional info: 4 hrs since thoravent removal TECHNIQUE: Imaging protocol: Radiologic exam of the chest. Views: 1 view. COMPARISON: CR XR chest 1V portable [id number] 06/13/2022 1:06 PM FINDINGS: Tubes, catheters and devices: Infusion port catheter is in place with its tip in the superior vena cava. Lungs: Visualized portions of the lungs are clear. There is no pulmonary vascular congestion. Pleural spaces: Unremarkable. No pleural effusion. No pneumothorax. Heart/Mediastinum: Heart is within normal limits of size. Bones/joints: Unremarkable. XR/XR chest 1V portable [id number] IMPRESSION: No acute infiltrate.
[2022-06-13 17:23] LABS: Glucose Point of Care 157 mg/dL (70-110)
--- NOTE | 2022-06-13 17:48 | PM.DCS ---
Discharge Providers Date of Admission: 06/12/22 17:59 Date of Discharge: June 13, 2022 Attending Provider at Admission: Burak Diez DO Attending Provider at Discharge: Burak Diez DO Diagnoses at Discharge Discharge Diagnosis (1) Bladder cancer: Status: Acute (2) Iatrogenic pneumothorax: Status: Acute Reason for Visit Reason for Visit: C67.9 Brief History: Need for Mediport Hospital Course Hospital Course This is a very pleasant 62-year-old female who underwent Mediport insertion as an outpatient to treat her breast cancer. During the procedure she aggressively coughed while the introducer needle was underneath the clavicle, resulting in a small pneumothorax. A Thora vent was placed and she was kept overnight. Thora vent was removed the next day and chest x-ray showed no pneumothorax. She was discharged home in good condition. Physical Exam Narrative: General : Patient is well developed , no acute distress, oriented x3 Head : Normal cephalic, a-traumatic. Ears : Pinnae and external canal are normal. Hearing is normal. Eyes : PERRLA, Sclera and injection are normal. No conjunctival discharge. Nose : Mucous membranes are without erythema. Throat : buccal mucosa is normal, gums are without significant recession or hypertrophy. Lungs : Equal chest rise bilaterally, no use of accessory muscles, trachea is midline. Cor : Rate and rhythm are normal. Abdomen : Soft, ND, NT, no g/r/m Extremities : No edema, no cyanosis or clubbing, dorsalis pedis pulses are present bilaterally, non-tender to palpation of calves. Upper extremities are normal bilaterally. Back : non-tender to palpation, no CVA tenderness. Neuro : CN II - XII intact, Upper and lower extremities have equal and full strength Discharge Data Studies Completed and Pending Completed Studies During Hospitalization Category Date Time Status CXRP [XR chest 1V portable [id number]] Stat Exams 06/13/22 12:56 Completed CXRP [XR chest 1V portable [id number]] Stat Exams 06/13/22 13:49 Completed CXRP [XR chest 1V portable [id number]] Stat Exams 06/13/22 16:30 Completed XR chest 1V portable [id number] Routine Exams 06/12/22 Completed XR chest 1V portable [id number] Stat Exams 06/12/22 15:32 Completed XR chest 2V* [id number] Routine Exams 06/13/22 05:00 Completed Pending at discharge Category Date Time Status BMP [Basic Metabolic Panel] AM LABS Lab 06/14/22 04:00 Uncollected BMP [Basic Metabolic Panel] AM LABS Lab 06/15/22 04:00 Uncollected Radiology Impressions Chest X-Ray 06/13/22 16:30 IMPRESSION: No acute infiltrate. Laboratory Results Sodium 134 mmol/L (136-145) L 06/13/22 00:55 Potassium 3.8 mmol/L (3.5-5.1) 06/13/22 00:55 Chloride 99 mmol/L (98-107) 06/13/22 00:55 Carbon Dioxide 28 mmol/L (22-29) 06/13/22 00:55 Anion Gap 10.8 (5-19) 06/13/22 00:55 BUN 16 mg/dL (8-23) 06/13/22 00:55 Creatinine 1.0 mg/dL (0.5-0.9) H 06/13/22 00:55 GFR Calculation 56.4 mL/min (90-130) L 06/13/22 00:55 Glucose 103 mg/dL (65-115) 06/13/22 00:55 POC Glucose 157 mg/dL (70-110) H 06/13/22 16:44 Calculated Osmolality 279 mOsm/kg (285-295) L 06/13/22 00:55 Calcium 8.6 mg/dL (8.5-10.5) 06/13/22 00:55 Procedures Performed Mediport insertion Left Thora vent placement Vitals Last Vital Signs Temp 99.0 F 06/13/22 15:39 Pulse 105 H 06/13/22 15:39 Resp 17 06/13/22 15:39 BP 148/77 06/13/22 15:39 Pulse Ox 94 06/13/22 15:39 O2 Del Method 06/13/22 08:32 O2 Flow Rate 2 06/13/22 08:32 Discharge Plan Discharge Patient Disposition: Home Condition: Stable Prescriptions: New hydrocodone-acetaminophen 5-325 mg tablet 1 tab PO Q6H PRN (Reason: pain) Qty: 10 0RF DOK 100 mg capsule 100 mg PO BID Qty: 10 0RF Continued dulkamy-sgmvqecliufmg-wioqfxpp 250-250-65 mg tablet 2 tab PO QID PRN (Reason: Pain) artifi.tears(hypromellose)(PF) 0.3 % drops 1 drp ophthalmic (eye) DAILY PRN (Reason: right eye) furosemide 40 mg tablet 80 mg PO DAILY Qty: 60 5RF Rx Instructions: pt states her pcp told her she could take 2 tabs in the morning. potassium chloride 40 mEq/15 mL liquid 40 meq PO DAILY Qty: 450 5RF albuterol sulfate 2.5 mg /3 mL (0.083 %) solution for nebulization 2.5 mg inhalation Q4H PRN (Reason: shortness of breath or wheezing) Qty: 300 5RF albuterol sulfate [ProAir HFA] 90 mcg/actuation HFA aerosol inhaler 2 puff inhalation Q6H PRN (Reason: shortness of breath or wheezing) Qty: 18 5RF valacyclovir 1 gram tablet 1,000 mg PO DAILY 30 Days Qty: 30 5RF lidocaine 5 % adhesive patch,medicated 1 patch topical DAILY PRN (Reason: pain) Qty: 30 2RF Rx Instructions: leave on most painful area for up to 12 hrs budesonide [Pulmicort] 0.5 mg/2 mL suspension for nebulization 0.5 mg inhalation BID Qty: 120 5RF fluticasone propionate [Allergy Relief (fluticasone)] 50 mcg/actuation spray,suspension 2 spray intranasal DAILY Qty: 16 0RF Rx Instructions: administer into each nostril epinephrine [EpiPen] 0.3 mg/0.3 mL auto-injector 0.3 mg IM Q10M PRN (Reason: anaphylaxis) Qty: 1 2RF Rx Instructions: for 2 doses nystatin 100,000 unit/mL suspension 4 - 6 ml PO DAILY Qty: 473 0RF Rx Instructions: administer 1/2 of dose in each side of the mouth, swish and spit Discharge Orders: Discharge Order (Routine); Ordered 06/13/22 Ordered By: Burak Diez Referrals: Burak Diez DO [Physician] - 06/26/22 1:15 pm Everardo Barrett MD [Physician] - 06/19/22 1:00 pm (This is an appointment to establish primary care. ) Discharge Diet: Advance as tolerated Discharge Activity: Resume usual activity Patient Instructions: Implanted Venous Access Port (DC), Post Anesthesia Care Activity Restrictions/Additional Instructions: Do not soak incision underwater for 2 weeks. Leave bandage on over Thoravent site for 2 to 3 days and then remove. Shower daily. Discharge Attestations Time Spent in Discharge Care*: less than 30 min Quality Metrics Clinical Quality Measures [ No reported AMI, CVA or VTE this stay] Coding Level of Care Code Acute Code for Chg Fwd Diagnoses Bladder cancer C67.9 Iatrogenic pneumothorax J95.811
--- NOTE | 2022-06-13 19:25 | PC.NURSE ---
patient left the floor via wheelchair at 1926 with all belongings. Patient had discharge paperwork given to her by prior nurse. patient was accompanied by visitor.
--- NOTE | 2022-06-13 19:26 | PC.NURSE ---
Discussed discharge instructions, new medications, continued medication and follow up appointments. Verbalized understanding.
== END 2022-06-13 19:26 | disposition home or self-care (01) ==
LOC: MEDSURG 18:00
PROVIDERS: Admitting Provider Surgery; Visit Provider Surgery
PROC: (CPT 36561; principal; 2022-06-12 12:00)
DX: C67.9 Malignant neoplasm of bladder, unspecified (principal); J93.9 Pneumothorax, unspecified; J95.811 Postprocedural pneumothorax; J44.9 Chronic obstructive pulmonary disease, unspecified; I10 Essential (primary) hypertension; Z85.51 Personal history of malignant neoplasm of bladder; F41.9 Anxiety disorder, unspecified; I25.10 Atherosclerotic heart disease of native coronary artery without angina pectoris; F17.200 Nicotine dependence, unspecified, uncomplicated
CPT/HCPCS: 36561; 36416; 71045; 71046; 76000; 77001; 80048; 82962; 94664; 96372; C1788; G0378; J1170; J1644; J2405; J2704; J3010; J3370; J7030; J7050

== ENCOUNTER → 2022-06-26 14:52 | Outpatient (BNVA) | payer MEDICAID, SELFPAY | PROVIDERS: Visit Provider Surgery | DX: C67.9 Malignant neoplasm of bladder, unspecified (principal); Z95.828 Presence of other vascular implants and grafts | CPT/HCPCS: 99213 ==

== ENCOUNTER 2022-08-24 05:37 | Outpatient (CLI) | payer MEDICAID, SELFPAY ==
--- NOTE | 2022-08-24 12:30 | PETR_ITS ---
PROCEDURE INFORMATION: Exam: PET/CT Skull Base to Mid-thigh Exam date and time: 08/24/2022 1:55 PM Age: 62 years old Clinical indication: Condition or disease; Primary cancer: Malignant neoplasm of bladder; Follow-up oncological assessment; Prior surgery; Surgery date: 6+ months; Surgery type: Port, bladder surgery as a ; Additional info: Restaging, jud LABS AND CLINICAL REPORTS: Glucose: 144 mg/dl Treatment strategy for malignancy (PET staging): Restaging (PS) TECHNIQUE: Imaging protocol: Following at least four-hour fasting and following the injection of radiopharmaceutical, low dose CT images were obtained. Then, PET images were obtained. Attenuation corrected images were constructed using the CT scan. Fused images of PET and CT were reviewed. The standardized uptake values (SUV) reported below are maximum values within a region of interest, expressed in gm/ml. Exam includes orbital meatal line to mid-thigh. Radiopharmaceutical: 13.1 mCi F-18 FDG (Fluorodeoxyglucose), IV. Time of imaging post radiopharmaceutical administration: 1 hour Injection site: Right antecubital [id number] 02/22/2022 7:46 AM, CT abdomen and pelvis 01/18/2022 FINDINGS: Limitations: The examination is technically suboptimal secondary to the scan to injection time outside of recommended parameters (45-75 minutes). Reported scan to injection time of 95.5 minutes. Injection to scan times outside of recommended parameters can result in decreased PET sensitivity and limit the utility of comparison of SUV values to prior or subsequent exams. Tubes, catheters and devices: A left subclavian central venous port catheter terminates in the distal SVC. Brain: Visualized brain has normal physiologic uptake. Pharynx: No abnormal uptake. Larynx: No abnormal uptake. Lungs, pleura and trachea: No abnormal uptake. A previously noted posterior right lower lobe nodule on the prior PET-CT is not currently identified. Heart: There is a moderate pericardial effusion which is increased in size since the prior PET-CT. Mediastinal space: No abnormal uptake. Liver: No abnormal uptake. Gallbladder and bile ducts: No abnormal uptake. Pancreas: No abnormal uptake. Spleen: No abnormal uptake. Adrenal glands: No abnormal uptake. Kidneys and ureters: Atrophy of the parenchyma of the superior pole of the right kidney is noted. Mild right hydronephrosis is noted. There is a 3-4 mm stone in the inferior pole of the right kidney. Mild dilatation of the right ureter is noted to the level of the ureterovesical junction where there is a new ovoid region of asymmetric soft tissue density on series 3 between images 126 and 128 measuring approximately 1.5 x 1.2 cm (SUV max 4.9). Stomach and bowel: There are scattered colonic diverticula. A mildly thick-walled appearance of the mid to distal sigmoid colon is noted. There is a focus of elevated uptake in this region, SUV max 11.1 on the left on PET series 4, image 123 where there is there is evidence of mild streaky soft tissue density extending between loops of sigmoid colon best demonstrated on CT series 3 between images 122 and 124. Reproductive: Diffusely abnormal uptake is identified throughout the uterus, SUV max 12.0 which is new since the prior PET-CT. Vasculature: No abnormal uptake. There are diffuse atherosclerotic changes. Aneurysmal dilatation of the abdominal aorta is greatest in the infrarenal segment where the caliber measures up to 4.1 cm in diameter. Lymph nodes: Radiotracer avid lymph nodes in the chest, abdomen and pelvis are noted. Examples: A lymph node in the proximal chest posterior to the trachea measuring 1.2 cm in diameter measured approximately 1 cm in diameter on the prior PET-CT and is currently with an SUV max 8.1 (previously not radiotracer avid. Additional radiotracer avid pretracheal and precarinal lymph nodes are newly prominent and newly radiotracer avid for example clustered in the precarinal space with an overall measurement of 4.3 x 1.3 cm on series 3, image 45, SUV max 8.6. Newly prominent radiotracer avid subcarinal and Brea hilar lymph nodes are noted since the prior PET-CT for example in the subcarinal space measuring up to 1.8 cm in diameter on series 3, image 49, SUV max 8.0 and in the superior left hilar region measuring 2.1 x 1.2 cm on series 3, image 44, SUV max 7.4. Clustered radiotracer avid lymph nodes throughout the anterior mediastinum extending into the pericardial fat are newly prominent and radiotracer avid for example in the anterior pericardial fat measuring 1.1 cm in diameter on series 3, image 40, SUV max 7.0. Radiotracer avid retroperitoneal lymphadenopathy has become more prominent and radiotracer avid. For example a mid abdominal left retroperitoneal periaortic lymph node measuring 1.6 cm in diameter on series 3, image 88 is noted, SUV max 7.7 (previously measuring 1.2 cm with a previous SUV max 4.4). Enlarged lymph nodes in the region of the jose d hepatis and portacaval region are newly prominent radiotracer avid for example clustered in the region of the jose d hepatis on series 3, image 76, SUV max 6.0. Assessment of the individual size of lymph nodes in this location is somewhat limited without intravenous contrast. Increased prominence of radiotracer avid lymph nodes previously noted along the iliac chains. For example a proximal left common iliac chain lymph node currently measures 2.0 x 1.0 cm on series 3, image 106, SUV max 7.2 (previously measuring 1.7 x 0.5 cm with a previous SUV max 3.8). A left external iliac chain lymph node measures 2 cm in diameter on series 3, image 122 with an SUV max 7.3 (previously measuring 1.4 cm with a previous SUV max 6.1). New hypermetabolic right retrocrural lymph node measuring 1.5 x 0.8 cm on series 3, image 78, SUV max 4.6. Bones/joints: A new focus of uptake in the right C3-C4 facet is noted, SUV max 5.8. No well-defined lesion is noted in this location on the CT images. Soft tissues: There are bilateral breast implants. METRICS: Mediastinal blood pool: SUV max 1.1 [id number] IMPRESSION: 1. Significant interval increase in radiotracer avid lymphadenopathy in the chest, abdomen and pelvis compatible with increased neoplastic involvement. 2. New diffuse abnormal uptake throughout the uterus which is abnormal postmenopausal female concerning for malignancy. 3. New soft tissue density lesion in the distal right ureter extending to the ureterovesical junction concerning for neoplastic involvement. 4. Uptake in the sigmoid colon is noted and is somewhat focal where there is a region of streaky soft tissue density extending between bowel loops in this region. This may represent physiologic uptake in a region of scarring versus localized inflammatory, infectious or neoplastic involvement. 5. New focus of elevated uptake at the right C3-C4 facet. This may be degenerative in nature although an osseous metastatic lesion cannot be excluded. 6. Interval resolution of a previously noted right lower lobe nodule compared with the prior PET-CT. 7. Moderate pericardial effusion, increased in size. 8. Aneurysmal dilatation of the abdominal aorta. 9. Additional nonurgent findings as detailed above.
== END 2022-08-24 05:38 | disposition home or self-care (01) ==
LOC: RAD 08-26 05:38
PROVIDERS: Visit Provider Nurse Practitioner
DX: C67.9 Malignant neoplasm of bladder, unspecified (principal); R59.0 Localized enlarged lymph nodes; R93.89 Abnormal findings on diagnostic imaging of other specified body structures; R93.3 Abnormal findings on diagnostic imaging of other parts of digestive tract; R93.7 Abnormal findings on diagnostic imaging of other parts of musculoskeletal system; I31.39 Other pericardial effusion (noninflammatory); I77.811 Abdominal aortic ectasia
CPT/HCPCS: 78815; A9552

== ENCOUNTER 2022-08-24 14:40 | Outpatient (CLI) | payer MEDICAID, SELFPAY ==
[2022-08-24 15:10] LABS: Basophils # 0.1 10^3/uL (0.0-0.1); Basophils % 0.9 %; Eosinophils # 0.5 10^3/uL (0.0-0.8); Eosinophils % 4.1 %; Hematocrit 29.2 % (37.0-47.0); Hemoglobin 7.8 g/dL (11.5-15.3); Lymphocytes # 2.3 10^3/uL (0.8-4.8); Lymphocytes % 21.3 %; Mean Corpuscular HGB Conc 26.7 g/dL (30.0-36.0); Mean Corpuscular Hemoglobin 20.1 pg (28.0-34.0); Mean Corpuscular Volume 75.1 fl (81-99); Mean Platelet Volume 8.9 fL (7.4-10.4); Monocytes # 0.7 10^3/uL (0.2-0.9); Monocytes % 6.2 %; Neutrophils # 7.33 10^3/uL (1.8-7.7); Neutrophils % 67.2 %; Nucleated Red Blood Cells % 0 %; Platelet Count 547 10^3/cmm (130-400); Red Blood Count 3.89 10^6/uL (4.1-5.3); White Blood Count 10.9 10^3/uL (4.0-10.0)
[2022-08-24 15:30] LABS: Alanine Aminotransferase < 5 U/L (0-33); Albumin Level 3.7 g/dL (3.5-5.2); Alkaline Phosphatase 169 U/L (35-105); Anion Gap 14.8 (5-19); Aspartate Amino Transferase 8 U/L (0-32); Blood Urea Nitrogen 12 mg/dL (8-23); Carbon Dioxide 25 mmol/L (22-29); Chloride 95 mmol/L (98-107); Globulin 3.8 g/dL (1.3-4.6); Glomerular Filtration Rate 72.9 mL/min (90-130); Glucose 101 mg/dL (65-115); Osmolality Calculated 272 mOsm/kg (285-295); Potassium 3.8 mmol/L (3.5-5.1); Sodium 131 mmol/L (136-145); Total Bilirubin 0.2 mg/dL (0.15-1.2); Total Protein 7.5 g/dL (6.6-8.7)
== END 2022-08-24 14:41 | disposition home or self-care (01) ==
PROVIDERS: Internal Medicine Hematology & Oncology; Visit Provider Internal Medicine Gastroenterology
DX: C67.9 Malignant neoplasm of bladder, unspecified (principal); Z79.899 Other long term (current) drug therapy
CPT/HCPCS: 36415; 80053; 85025

== ENCOUNTER 2022-08-29 16:02 | Observation (INO) | payer MEDICAID, SELFPAY ==
[2022-08-29] VITALS (7 sets, daily range): BP systolic 148–191; BP diastolic 80–98; PULSE 100–114; RESP 16–18; TEMP 36.6–37.1; O2SAT 94–98; BMI 20.2
--- NOTE | 2022-08-29 16:23 | ECG_ITS ---
[facility] Test Date: 2022-08-29 Pat Name: Skye Ambrose Department: Room: Gender: Female Economic Analyst: : 1960 Requested By: Doni Murcia Order Number: [id number] Vince MD: Debbie Simmons M.D. Measurements Intervals [place] Rate: 111 P: 57 WV: 116 QRS: 55 QRSD: 122 T: 66 QT: 338 QTc: 459 Interpretive Statements SINUS TACHYCARDIA WITH SHORT WV INTERVAL POSSIBLE LEFT ATRIAL ENLARGEMENT [-0.1mV P-WAVE IN V1/V2] POSSIBLE RIGHT VENTRICULAR CONDUCTION DELAY [RSR (QR) IN V1/V2] NONSPECIFIC ST & T-WAVE ABNORMALITY ABNORMAL RHYTHM ECG Compared to ECG 02/16/2020 20:32:00 Short WV interval now present Ventricular premature complex(es) no longer present T-wave abnormality still present Electronically Signed On 08-30-2022 4:57:35 CDT by Debbie Simmons M.D. [id number]
--- NOTE | 2022-08-29 16:23 | ED_ITS ---
HPI - SOB/Dyspnea General: Chief Complaint: Shortness of Breath/Dyspnea Stated Complaint: SOB Time Seen by Provider: 08/29/22 16:23 Source: patient Mode of arrival: ambulatory History of Present Illness: HPI Narrative: 62-year-old female with a known history of bladder cancer she was diagnosed late last year she initially was seen by Dr. Manley in March of this year they are going to initiate treatment but she was lost to follow-up she returns today he has increasing shortness of breath abdominal pain and pleural effusion. Recent PET scan showed significant interval advancement of the disease in chest abdomen pelvis compared to previous staging. MD elicited complaint: shortness of breath and cough Pertinent past history: COPD Onset (ago): week(s) Timing: constant Severity: moderate Exacerbating factors: exertion and coughing Relieving factors: rest Known history of: COPD Associated symptoms: Reports abdominal pain, chest pain, nausea and orthopnea; Deny no associated symptoms, chest congestion, cough, diaphoresis, dizziness, extremity pain, fever(s), hemoptysis, lightheadedness, myalgias, palpitations, paresthesias, polydipsia, polyuria, rash, sense of impending doom, syncope, vomiting or other Treatment prior to arrival: none Review of Systems Const: Reports: fatigue and malaise; Denies: fever(s), chills or diaphoresis ENMT: Denies: throat pain, ear or mastoid pain, nasal discharge or nasal co ngestion Card: Reports: chest pain, dyspnea on exertion and orthopnea; Denies: palpitations, lightheadedness or syncope Resp: Reports: dyspnea, non-productive cough and wheezing; Denies: hemoptysis or chest congestion GI: Reports: abdominal pain and nausea; Denies: vomiting : Denies: flank pain, difficulty voiding, dysuria, urinary frequency or urinary urgency Musc: Reports: back pain; Denies: neck pain or extremity pain Skin/Breast: Denies: rash or pruritus Neuro: Denies: dizziness Endo: Denies: polyuria or polydipsia PFSH ED PFSH: Medical History Allergy to iodine Anxiety, generalized Bladder cancer CAD (coronary artery disease) Chronic post-traumatic stress disorder (PTSD) COPD (chronic obstructive pulmonary disease) Hypertension Lumbar radiculopathy, chronic Port-A-Cath in place Post herpetic neuralgia Vitamin D insufficiency Surgical History History of abdominoplasty History of bladder surgery History of breast augmentation Saline History of heart artery stent 2 stents September 2013 History of tubal ligation Family History Sister Diabetes Brother Diabetes Denies family history of Bleeding disorder Social History Smoking and tobacco status: current every day smoker Second hand smoke exposure: Yes Smoking risk assessment/counseling performed?: Yes Alcohol intake: unknown Desire information about alcohol rehabilitation?: No Counseling given: No Substance/Drug Use: unknown Desire information about substance/drug rehabilitation?: No Counseling given: No Adopted: No Caregiver/support person: No Lives independently: Yes Household members: spouse Marital status: Number of children: 5 service: No Do you think of yourself as: Straight/Heterosexual Current gender identity: Female Physical Exam Const: GENERAL APPEARANCE: cooperative and comfortable ORIENTATION/CONSCIOUSNESS: Yes awake, Yes oriented to person, Yes oriented to place and Yes oriented to time HENMT: COMMON NORMALS: normocephalic, atraumatic and hearing grossly normal bilaterally HEAD & SCALP: normocephalic and atraumatic Resp: AUSCULTATION: rales and wheezes Cardio: COMMON NORMALS: regular rate, regular rhythm and No murmurs present (Cardio) RATE: regular rate RHYTHM: regular rhythm GI: COMMON NORMALS: Soft to palpation and No hepatosplenomegaly present AUSCULTATION: Yes normoactive bowel sounds PALPATION: Yes Soft to palpation, No Tenderness to palpation present (GI), No Guarding due to palpation present (GI) and Yes No hepatosplenomegaly present Extremity: COMMON NORMALS: normal to inspection, capillary refill normal, no clubbing, cyanosis or edema, no calf tenderness and no pedal edema Neuro: SENSORIUM/ORIENTATION: Yes oriented to person, Yes oriented to place and Yes oriented to time Skin: COMMON NORMALS: no rashes or lesions noted GENERAL SKIN EXAM: no rashes or lesions noted Course Vital Signs: Vital signs: Vital Signs Temperature 98.0 F 08/30/22 08:00 Pulse Rate 109 H 08/30/22 16:27 Respiratory Rate 18 08/30/22 16:05 Blood Pressure 156/80 08/30/22 08:00 Pulse Oximetry 95 08/30/22 16:05 Oxygen Delivery Me thod Room Air 08/30/22 16:05 MDM - SOB/Dyspnea Medical Decision Making Anemia likely secondary to her underlying malignancy. There is some cardiomegaly question of pericardial effusion. She will require blood transfusi on least [address] Davison will place on observation transfuse further work-up for pericardial effusion to include echocardiogram Medical Records I reviewed the patient's medical records. Lab Data I reviewed the patient's lab results. 08/30/22 11:05 08/29/22 16:40 Labs/Radiology: Radiology Impressions Chest X-Ray 08/29/22 16:23 IMPRESSION: No acute findings. Laboratory Results Sodium 137 mmol/L (136-145) 08/29/22 16:40 Potassium 3.4 mmol/L (3.5-5.1) L 08/29/22 16:40 Chloride 100 mmol/L (98-107) 08/29/22 16:40 Carbon Dioxide 23 mmol/L (22-29) 08/29/22 16:40 Anion Gap 17.4 (5-19) 08/29/22 16:40 BUN 9 mg/dL (8-23) 08/29/22 16:40 Creatinine 0.8 mg/dL (0.5-0.9) 08/29/22 16:40 GFR Calculation 72.9 mL/min (90-130) L 08/29/22 16:40 Glucose 68 mg/dL (65-115) 08/29/22 16:40 Estimat Average Glucose 103 08/29/22 16:40 Hemoglobin A1c 5.2 % (4.0-6.0) 08/29/22 16:40 Calculated Osmolality 281 mOsm/kg (285-295) L 08/29/22 16:40 Calcium 9.1 mg/dL (8.5-10.5) 08/29/22 16:40 Iron 16 ug/dL (37-145) L 08/29/22 16:40 TIBC 392 mcg/dl 08/29/22 16:40 % Saturation 4.0 % (20-50) L 08/29/22 16:40 Unsat Iron Binding 376 ug/dL (112-347) H 08/29/22 16:40 Total Bilirubin 0.2 mg/dL (0.15-1.2) 08/29/22 16:40 AST 9 U/L (0-32) 08/29/22 16:40 ALT < 5 U/L (0-33) 08/29/22 16:40 Alkaline Phosphatase 164 U/L (35-105) H 08/29/22 16:40 Troponin T Baseline 15 ng/L (0-10) H 08/29/22 16:40 NT-Pro-B Natriuret Pep 4412 pg/mL (0-125) H 08/29/22 16:40 Total Protein 7.4 g/dL (6.6-8.7) 08/29/22 16:40 Albumin 4.1 g/dL (3.5-5.2) 08/29/22 16:40 Globulin 3.3 g/dL (1.3-4.6) 08/29/22 16:40 Vitamin B12 294 pg/mL (232-1245) 08/29/22 16:40 Folate 5.5 ng/mL (4.8-37.3) 08/29/22 16:40 TSH 1.82 uIU/mL (0.27-4.20) 08/29/22 16:40 Discharge Plan Discharge Patient Disposition: Admitted As Inpatient Admit Provider: Ana Davison Clinical Impression: Anemia, COPD (chronic obstructive pulmonary disease), Bladder cancer, Pericardial effusion Condition: Stable Coding Level of Care Code ED Jet Dyeing Machine Tender for Chg Rick
--- NOTE | 2022-08-29 16:23 | XRR_ITS ---
PROCEDURE INFORMATION: Exam: XR Chest Exam date and time: 08/29/2022 4:27 PM Age: 62 years old Clinical indication: Cough; Additional info: Dyspnea/cough TECHNIQUE: Imaging protocol: Radiologic exam of the chest. Views: 1 view. COMPARISON: CR XR chest 1V portable [id number] 06/13/2022 3:46 PM FINDINGS: Tubes, catheters and devices: Clips in the right neck. Stable left [id number]-[id number]-Ebwe with tip in the distal SVC. Lungs: Unremarkable. No consolidation. Pleural spaces: Unremarkable. No pleural effusion. No pneumothorax. Heart/Mediastinum: Mild cardiomegaly. Bones/joints: Unremarkable. XR/XR chest 1V portable [id number] IMPRESSION: No acute findings.
[2022-08-29 17:11] LABS: Alanine Aminotransferase < 5 U/L (0-33); Albumin Level 4.1 g/dL (3.5-5.2); Alkaline Phosphatase 164 U/L (35-105); Anion Gap 17.4 (5-19); Aspartate Amino Transferase 9 U/L (0-32); Blood Urea Nitrogen 9 mg/dL (8-23); Calcium 9.1 mg/dL (8.5-10.5); Carbon Dioxide 23 mmol/L (22-29); Chloride 100 mmol/L (98-107); Globulin 3.3 g/dL (1.3-4.6); Glomerular Filtration Rate 72.9 mL/min (90-130); Glucose 68 mg/dL (65-115); Osmolality Calculated 281 mOsm/kg (285-295); Potassium 3.4 mmol/L (3.5-5.1); Sodium 137 mmol/L (136-145); Total Bilirubin 0.2 mg/dL (0.15-1.2); Total Protein 7.4 g/dL (6.6-8.7)
[2022-08-29 17:26] LABS: Troponin(5th) Baseline 15 ng/L (0-10)
[2022-08-29] MEDS: morphine 4 mg/mL SDV 1 mL IVP (18:12)
[2022-08-29] MEDS: dexamethasone 10 mg/mL INJ IVP (18:13)
[2022-08-29] MEDS: ondansetron 2 mg/ML SDV 2 mL 4 MG IVP ×2 (18:13→21:14)
--- NOTE | 2022-08-29 18:45 | ECG_ITS ---
[facility] Test Date: 2022-08-29 Pat Name: Skye Ambrose Department: Room: 260 Gender: Female Silk Blocker: : 1960 Requested By: Doni Murcia Order Number: [id number] Reading MD: Debbie Simmons M.D. Measurements Intervals [place] Rate: 99 P: 62 DE: 147 QRS: 55 QRSD: 120 T: 36 QT: 360 QTc: 462 Interpretive Statements SINUS RHYTHM POSSIBLE LEFT ATRIAL ENLARGEMENT [-0.1mV P-WAVE IN V1/V2] MODERATE INTRAVENTRICULAR CONDUCTION DELAY [110+ ms QRS DURATION] NONSPECIFIC ST & T-WAVE ABNORMALITY Compared to ECG 08/29/2022 16:35:38 Intraventricular conduction delay now present Sinus tachycardia no longer present Short DE interval no longer present T-wave abnormality still present Electronically Signed On 08-30-2022 4:58:50 CDT by Debbie Simmons M.D. [id number]
--- NOTE | 2022-08-29 19:04 | PC.NURSE ---
Report from GAEL Main. Pt resting quietly. No needs at this time.
[2022-08-29 19:20] LABS: Troponin 5 2HR 16.11 ng/L (0-10)
[2022-08-29 19:21] LABS: Troponin 5 2HR Delta 1.11 ABS# (0-10)
[2022-08-29] MEDS: morphine 4 mg/mL SDV 1 mL 2 MG IVP (21:14)
--- NOTE | 2022-08-29 22:23 | ECG_ITS ---
[facility] Test Date: 2022-08-29 Pat Name: Skye Ambrose Department: Room: 260 Gender: Female Head Banquet Waiter/Waitress: : 1960 Requested By: Doni Murcia Order Number: [id number] Vince MD: Debbie Simmons M.D. Measurements Intervals [place] Rate: 105 P: 60 ID: [id number] QRS: 54 QRSD: 118 T: 56 QT: 357 QTc: 474 Interpretive Statements SINUS TACHYCARDIA WITH SHORT ID INTERVAL MODERATE INTRAVENTRICULAR CONDUCTION DELAY [110+ ms QRS DURATION] NONSPECIFIC ST & T-WAVE ABNORMALITY ABNORMAL RHYTHM ECG Compared to ECG 08/29/2022 18:45:52 Short ID interval now present Sinus rhythm no longer present T-wave abnormality still present Electronically Signed On 08-30-2022 4:58:22 CDT by Debbie Simmons M.D. [email or web address] [email or web address]/[id number]
[2022-08-29 22:38] LABS: Troponin 5 6HR 12.02 ng/L (0-10)
[2022-08-29 22:40] LABS: Troponin 5 6HR Delta -2.98 ng/L (0-12)
[2022-08-30] VITALS (18 sets, daily range): BP systolic 129–162; BP diastolic 68–81; PULSE 89–111; RESP 15–18; TEMP 36.7–37; O2SAT 91–100
[2022-08-30] MEDS: calcium carbonate 500 mg Chew Tablet PO ×2 (00:54→12:48)
[2022-08-30] MEDS: nicotine 14 mg Patch 1 PATCH TRANSDERMA (00:55)
--- NOTE | 2022-08-30 02:05 | P.HP_ITS ---
Providers/Chief Complaint Admitting Physician: Ana Davison MD Chief Complaint: SOB History of Present Illness Skye Ambrose is a 62 year old female with h/o COPD, CHF, CAD, HTN, anxiety, PTSD, bladder cancer diagnosed january 2022 was sent in by the oncologist for abnormal labs. Her Hb was found to be 7.7. As per the patient , her oncologist is starting her on chemotherapy and wanted to give her blood transfusion. Also she had an 2D ECHO done in 06/06 which showed trivial pericardial effusion. he also wanted her to get an recent ECHO> She reports feeling generalized weakness and pain that is her usual but no new active symptoms. Review of Systems Const: Reports: fatigue and malaise; Denies: fever(s), chills or diaphoresis ENMT: Denies: throat pain, ear or mastoid pain, nasal discharge or nasal congestion Card: Reports: dyspnea on exertion and orthopnea; Denies: palpitations, lightheadedness or syncope Resp: Reports: dyspnea, non-productive cough and wheezing; Denies: hemoptysis or chest congestion GI: Reports: abdominal pain and nausea; Denies: vomiting : Denies: flank pain, difficulty voiding, dysuria, urinary frequency or urinary urgency Musc: Reports: back pain; Denies: neck pain or extremity pain Skin/Breast: Denies: rash or pruritus Neuro: Denies: dizziness Endo: Denies: polyuria or polydipsia Medications/Allergies Home Medications Medication Instructions Recorded Confirmed Last Taken Type artifi.tears(hypromellose)(PF) 0.3 1 drp ophthalmic (eye) DAILY PRN 03/20/22 08/29/22 06/11/22 History % eye drops right eye ypcifvx-drsognicbfibn-jgpxfwho 250 2 tab PO QID PRN Pain 03/20/22 08/29/22 06/11/22 History mg-250 mg-65 mg tablet albuterol sulfate 2.5 mg/3 mL 2.5 mg (3 mL) inhalation Q4H PRN 04/02/22 08/29/22 06/12/22 07:00 Rx (0.083 %) solution for nebulization shortness of breath or wheezing #300 mL albuterol sulfate 90 mcg/actuation 2 puff inhalation Q6H PRN 04/02/22 08/29/22 06/12/22 07:00 Rx aerosol inhaler (ProAir HFA) shortness of breath or wheezing #18 grams budesonide 0.5 mg/2 mL suspension 0.5 mg (2 mL) inhalation BID #120 04/02/22 08/29/22 06/11/22 Rx for nebulization (Pulmicort) mL epinephrine 0.3 mg/0.3 mL 0.3 mg (0.3 mL) IM Q10M PRN 04/02/22 08/29/22 04/15/22 Rx injection, auto-injector (EpiPen) anaphylaxis #1 ea fluticasone propionate 50 2 spray intranasal DAILY #16 grams 04/02/22 08/29/22 0 06/11/22 Rx mcg/actuation nasal spray,suspension (Allergy Relief (fluticasone)) furosemide 40 mg tablet 80 mg PO DAILY #60 tabs 04/02/22 08/29/22 06/11/22 Rx lidocaine 5 % topical patch 1 patch topical DAILY PRN pain #30 04/02/22 08/29/22 06/04/22 Rx ea potassium chloride 40 mEq/15 mL 40 meq (15 mL) PO DAILY #450 mL 04/02/22 08/29/22 06/11/22 Rx oral liquid valacyclovir 1 gram tablet 1,000 mg PO DAILY 30 days #30 tabs 04/02/22 08/29/22 06/11/22 Rx docusate sodium 100 mg capsule 100 mg PO BID PRN Constipation 08/29/22 08/29/22 Unknown History (DOK) Allergies Allergy/AdvReac Type Severity Reaction Status Date / Time ceftriaxone [From Rocephin] Allergy Severe ALGY-Anaphy Verified 08/29/22 14:52 laxis cephalexin [From Keflex] Allergy Severe ALGY-Anaphy Verified 08/29/22 14:52 laxis eszopiclone [Lunesta] Allergy Severe ADR-Agitate Verified 08/29/22 14:52 d zaleplon [From Sonata] Allergy Severe ADR-Halluci Verified 08/29/22 14:52 nating zolpidem [From Ambien] Allergy Severe ADR-Halluci Verified 08/29/22 14:52 nating dextromethorphan Allergy Intermediate ADR-Halluci Verified 08/29/22 14:52 nating Iodinated Contrast Media Allergy UNK Verified 08/29/22 14:52 ketoprofen Allergy Unknown Verified 08/29/22 14:52 ketorolac [From Toradol] Allergy UNK Verified 08/29/22 14:52 mirtazapine [From Remeron] Allergy UNK Verified 08/29/22 14:52 nitrofurantoin Allergy UNK Verified 08/29/22 14:52 [From Macrobid] rofecoxib [From Vioxx] Allergy UNK Verified 08/29/22 14:52 sulfamethoxazole Allergy UNK Verified 08/29/22 14:52 [From Bactrim] sumatriptan [From Imitrex] Allergy UNK Verified 08/29/22 14:52 trimethoprim [From Bactrim] Allergy UNK Verified 08/29/22 14:52 PFSH Acute PFSH: Medical History Allergy to iodine Anxiety, generalized Bladder cancer CAD (coronary artery disease) Chronic post-traumatic stress disorder (PTSD) COPD (chronic obstructive pulmonary disease) Hypertension Lumbar radiculopathy, chronic Port-A-Cath in place Post herpetic neuralgia Vitamin D insufficiency Surgical History History of abdominoplasty History of bladder surgery History of breast augmentation Saline History of heart artery stent 2 stents September 2013 History of tubal ligation Family History Sister Diabetes Brother Diabetes Denies family history of Bleeding disorder Social History Smoking and tobacco status: current every day smoker Second hand smoke exposure: Yes Smoking risk assessment/counseling performed?: Yes Alcohol intake: unknown Desire information about alcohol rehabilitation?: No Counseling given: No Substance/Drug Use: unknown Desire information about substance/drug rehabilitation?: No Counseling given: No Adopted: No Caregiver/support person: No Lives independently: Yes Household members: spouse Marital status: Number of children: 5 service: No Do you think of yourself as: Straight/Heterosexual Current gender identity: Female Vitals/I&O/Wt Last Vital Signs Temp 98.3 F 08/30/22 01:29 Pulse 95 08/30/22 01:29 Resp 16 08/30/22 01:29 BP 162/72 08/30/22 01:29 Pulse Ox 96 08/30/22 01:29 O2 Del Method Room Air 08/29/22 21:25 08/29/22 08/29/22 08/30/22 14:59 22:59 06:59 Intake Total 480 / 480 0 / 480 Balance 480 / 480 0 / 480 Weight last 48 hrs Weight 48.534 kg Physical Exam Narrative: AAox3, comfortable, not in acute distress chest clear to ascultation b/l CVS S1S2 normal , no murmurs noted Abd normal Ext- no edema present. Data 08/29/22 16:40 CXR: Radiologist's impression: Lungs: Minimal bibasilar infiltrates or atelectasis. Pleural spaces: Unremarkable. No pleural effusion. No pneumothorax. Heart/Mediastinum: Stable heart size. Bones/joints: Stable bones. EKG 1: EKG computer-generated impression: = SINUS TACHYCARDIA WITH SHORT IN INTERVAL POSSIBLE LEFT ATRIAL ENLARGEMENT? [-0.1mV P-WAVE IN V1/V2] POSSIBLE RIGHT VENTRICULAR CONDUCTION DELAY? [RSR (QR) IN V1/V2] NONSPECIFIC ST & T-WAVE ABNORMALITY ABNORMAL RHYTHM ECG A&P Assessment and plan (1) Anemia: (2) Pericardial effusion without cardiac tamponade: (3) Bladder cancer: Plan Anemia likely due to malignancy need to be transfused with 2 u PRBC before starting chemotherapy. give IV lasix 20mg after 1unit of PRBC recheck CBC in am pericardial effusion- unknown etiology cardiology consult in am for 2D ECHO before chemotherapy Bladder cancer- She had partial surgery done in january 2022, now oncology plan for chemotherapy. Cancer pain control with po dilaudid 2 mg q4h prn Resume home medications cardiac diet DVT ppx with SCD Full code for now Attestations Medical Necessity Statement*: need blood transfusion and cardiac work up for pericardial effusion before starting chemotherapy. Time Spent in Patient Care: 30min Coding Level of Care Code 92084 Diagnoses Anemia D64.9 Pericardial effusion without cardiac tamponade I31.39 Bladder cancer C67.9 Time Spent (min) 30
[2022-08-30] MEDS: ondansetron 2 mg/ML SDV 2 mL 4 MG IVP ×3 (03:19→14:51)
[2022-08-30] MEDS: FUROsemide 10 mg/mL SDV 4mL 20 MG IVP (04:51)
[2022-08-30] MEDS: sodium chloride 0.9% 100 mL Bag 50 ML IV (05:08)
[2022-08-30] MEDS: artificial tears Op Soln 15 mL Btl 1 DROP EYE-RIGHT (06:30)
[2022-08-30] MEDS: valACYclovir 1,000 mg Tablet 1000 MG PO (08:37)
[2022-08-30] MEDS: potassium chloride oral liq 20 mEq/15 mL UDC 40 MEQ PO (08:37)
[2022-08-30] MEDS: fluticasone nasal spray 16gm Btl 2 SPRAY INTRANASAL (08:37)
[2022-08-30] MEDS: budesonide 0.5 mg/2 mL Neb INHALATION (08:45)
[2022-08-30] MEDS: albuterol 2.5 mg/3 mL Neb INHALATION ×2 (08:49→16:09)
[2022-08-30] MEDS: nicotine 21 mg Patch 1 PATCH TRANSDERMA (10:16)
--- NOTE | 2022-08-30 10:31 | USCV_ITS ---
Skye Ambrose Age: 62 Gender: F : 1960 Exam Date: 08/30/2022 15:18 Ordering Phys: Cesar Jiménez MD Technologist: OSCAR [place]am [place] [facility] [place]: pericardial effusion BP: / HR: Rhythm: Sinus Technical Quality: Adequate MEASUREMENTS (Male / Female) Normal Values 2D ECHO LV Diastolic Diameter PLAX 6.6 cm 4.2 - 5.9 / 3.9 - 5.3 cm LV Systolic Diameter PLAX 5.8 cm IVS Diastolic Thickness 0.7 cm 0.6 - 1.0 / 0.6 - 0.9 cm IVS Systolic Thickness 1.2 cm LVPW Diastolic Thickness 0.7 cm 0.6 - 1.0 / 0.6 - 0.9 cm LVPW Systolic Thickness 1.1 cm LV Ejection Fraction 2D Teich 25.4 % LV Ejection Fraction MOD 2C 21.6 % LV Ejection Fraction 2C AL 21.9 % LA Diameter 4.0 cm IVC Diameter 2.4 cm M-MODE Aortic Annulus Diameter 2.7 cm LA Ao Ratio MM 1.5 MV E Point Septal Separation 1.5 cm DOPPLER AV Peak Velocity 124.0 cm/s LVOT Peak Velocity 90.0 cm/s MV Area PHT 7.6 cm squared Mitral E to A Ratio 1.3 MV E' Velocity 74.5 cm/s Mitral E to MV E' Ratio 21.6 Mitral E to LV E' Lateral Ratio 16.9 Mitral E to LV E' Septal Ratio 30.6 TV Peak E Velocity 58.0 cm/s PV Peak Velocity 84.0 cm/s FINDINGS Left Ventricle Mild global hypokinesis with reduced LV function estimated ejection fraction is about 40%. There is restrictive filling pattern Right Ventricle The right ventricle is normal in size and function. Right Atrium The right atrium is normal in size. Left Atrium Mildly dilated Mitral Valve Structurally normal mitral valve without significant stenosis or prolapse. There is mild to mitral regurgitation. Aortic Valve Structurally normal aortic valve without significant sclerosis or stenosis. There is no aortic regurgitation. Tricuspid Valve Structurally normal tricuspid valve without significant stenosis there is mild regurgitation. Pulmonary artery systolic pressure is normal. Pulmonic Valve Structurally normal pulmonic valve without significant stenosis. There is no pulmonic regurgitation. Pericardium There is small pericardial effusion without evidence of tamponade Aorta Normal ascending aorta dimension. IVC The inferior vena cava appears normal. CONCLUSIONS Moderate reduced LV function with ejection fraction is about 40%. Mild to moderate mitral regurgitation Nanette Cordon MD (Electronically Signed) Final Date: 31 August 2022 11:21 S
[2022-08-30 11:11] LABS: Estmated Average Glucose 103; Hemoglobin A1C 5.2 % (4.0-6.0)
[2022-08-30 11:15] LABS: Hematocrit 34.7 % (37.0-47.0); Hemoglobin 9.9 g/dL (11.5-15.3)
[2022-08-30 11:26] LABS: Folate Level 5.5 ng/mL (4.8-37.3)
[2022-08-30 11:27] LABS: Iron 16 ug/dL (37-145); NT Pro B Type Natriuretic Pept 4412 pg/mL (0-125); Thyroid Stimulating Hormone 1.82 uIU/mL (0.27-4.20); Total Iron Binding Capacity 392 mcg/dl; Unsaturated Iron Binding 376 ug/dL (112-347); Vitamin B12 294 pg/mL (232-1245)
--- NOTE | 2022-08-30 15:03 | PC.SOCIAL ---
Telephone order received to change discharge medication from ferrous gluconate to ferrous sulfate. Updated pharmacy in [place] via telephone.
--- NOTE | 2022-08-30 16:47 | P.DS_ITS ---
Discharge Providers Date of Admission: 08/29/22 17:43 Date of Discharge: August 30, 2022 Attending Provider at Admission: Ana Davison MD Attending Provider at Discharge: Cesar Jiménez MD Diagnoses at Discharge Discharge Diagnosis (1) Anemia: Status: Acute (2) Pericardial effusion without cardiac tamponade: Status: Acute (3) Bladder cancer: Status: Acute Reason for Visit Reason for Visit: SOB Brief History: History as per HPI: Skye Ambrose is a 62 year old female with h/o COPD, CHF, CAD, HTN, anxiety, PTSD, bladder cancer diagnosed january 2022 was sent in by the oncologist for abnormal labs. Her Hb was found to be 7.7. As per the patient , her oncologist is starting her on chemotherapy and wanted to give her blood transfusion. Also she had an 2D ECHO done in 06/06 which showed trivial pericardial effusion. he also wanted her to get an recent ECHO> She reports feeling generalized weakness and pain that is her usual but no new active symptoms. Hospital Course Hospital Course Patient was admitted to the hospital further evaluation and management of anemia along with possible pericardial effusion. She was not in tamponade on admission. She required 2 units of blood transfusion after which her hemoglobin improved appropriately 9.9. Blood studies were consistent with iron deficiency anemia and vitamin B12 deficiency for which she was started on oral iron supplementation along with B12 supplementation. Echocardiogram was ordered but patient decided to be discharged prior to the echocardiogram being done. Patient was explained in detail that echocardiogram is important prior to initiation of chemotherapy to rule out pericardial effusion and to assess the EF but she refused to stay. Patient was discharged in hemodynamically stable c ondition on oral pain medication while she awaits her follow-up with primary care provider. Physical Exam Narrative: AAox3, not in acute distress, mildly anxious, pallor present chest clear to ascultation b/l CVS S1S2 normal , no murmurs noted Abd normal Ext- no edema present. Discharge Data Studies Completed and Pending Completed Studies During Hospitalization Category Date Time Status XR chest 1V portable [id number] Stat Exams 08/29/22 16:23 Completed Pending at discharge Category Date Time Status Urinalysis Stat Lab 08/29/22 16:23 Ordered CV. echo complete* [id number] Routine Ultrasound 08/30/22 10:31 Ordered Radiology Impressions Chest X-Ray 08/29/22 16:23 IMPRESSION: No acute findings. Laboratory Results Hgb 9.9 g/dL (11.5-15.3) L 08/30/22 11:05 Hct 34.7 % (37.0-47.0) L 08/30/22 11:05 Sodium 137 mmol/L (136-145) 08/29/22 16:40 Potassium 3.4 mmol/L (3.5-5.1) L 08/29/22 16:40 Chloride 100 mmol/L (98-107) 08/29/22 16:40 Carbon Dioxide 23 mmol/L (22-29) 08/29/22 16:40 Anion Gap 17.4 (5-19) 08/29/22 16:40 BUN 9 mg/dL (8-23) 08/29/22 16:40 Creatinine 0.8 mg/dL (0.5-0.9) 08/29/22 16:40 GFR Calculation 72.9 mL/min (90-130) L 08/29/22 16:40 Glucose 68 mg/dL (65-115) 08/29/22 16:40 Estimat Average Glucose 103 08/29/22 16:40 Hemoglobin A1c 5.2 % (4.0-6.0) 08/29/22 16:40 Calculated Osmolality 281 mOsm/kg (285-295) L 08/29/22 16:40 Calcium 9.1 mg/dL (8.5-10.5) 08/29/22 16:40 Iron 16 ug/dL (37-145) L 08/29/22 16:40 TIBC 392 mcg/dl 08/29/22 16:40 % Saturation 4.0 % (20-50) L 08/29/22 16:40 Unsat Iron Binding 376 ug/dL (112-347) H 08/29/22 16:40 Total Bilirubin 0.2 mg/dL (0.15-1.2) 08/29/22 16:40 AST 9 U/L (0-32) 08/29/22 16:40 ALT < 5 U/L (0-33) 08/29/22 16:40 Alkaline Phosphatase 164 U/L (35-105) H 08/29/22 16:40 Troponin T Baseline 15 ng/L (0-10) H 08/29/22 16:40 Troponin T 120 Minute 16.11 ng/L (0-10) H 08/29/22 18:40 Delta Troponin T 1.11 ABS# (0-10) 08/29/22 18:40 Troponin T Hi Sens 6Hr 12.02 ng/L (0-10) H 08/29/22 22:08 Troponin T Hi Sens 6Hr Delta -2.98 ng/L (0-12) L 08/29/22 22:08 NT-Pro-B Natriuret Pep 4412 pg/mL (0-125) H 08/29/22 16:40 Total Protein 7.4 g/dL (6.6-8.7) 08/29/22 16:40 Albumin 4.1 g/dL (3.5-5.2) 08/29/22 16:40 Globulin 3.3 g/dL (1.3-4.6) 08/29/22 16:40 Vitamin B12 294 pg/mL (232-1245) 08/29/22 16:40 Folate 5.5 ng/mL (4.8-37.3) 08/29/22 16:40 TSH 1.82 uIU/mL (0.27-4.20) 08/29/22 16:40 Vitals Last Vital Signs Temp 98.0 F 08/30/22 08:00 Pulse 109 H 08/30/22 16:27 Resp 18 08/30/22 16:05 BP 156/80 08/30/22 08:00 Pulse Ox 95 08/30/22 16:05 O2 Del Method Room Air 08/30/22 16:05 Discharge Plan Discharge Patient Disposition: Home Condition: Stable Prescriptions: New ferrous gluconate 324 mg (37.5 mg iron) Tablet 324 mg PO BIDWM Qty: 60 0RF Dilaudid 2 mg tablet 2 mg PO Q6H PRN (Reason: pain) Qty: 20 0RF cyanocobalamin (vitamin B-12) 1,000 mcg capsule 1,000 mcg PO DAILY Qty: 30 0RF Continued rodcuts-ynyulcwhsssqp-ogtzzdak 250-250-65 mg tablet 2 tab PO QID PRN (Reason: Pain) artifi.tears(hypromellose)(PF) 0.3 % drops 1 drp ophthalmic (eye) DAILY PRN (Reason: right eye) furosemide 40 mg tablet 80 mg PO DAILY Qty: 60 5RF Rx Instructions: pt states her pcp told her she could take 2 tabs in the morning. potassium chloride 40 mEq/15 mL liquid 40 meq PO DAILY Qty: 450 5RF albuterol sulfate 2.5 mg /3 mL (0.083 %) solution for nebulization 2.5 mg inhalation Q4H PRN (Reason: shortness of breath or wheezing) Qty: 300 5RF albuterol sulfate [ProAir HFA] 90 mcg/actuation HFA aerosol inhaler 2 puff inhalation Q6H PRN (Reason: shortness of breath or wheezing) Qty: 18 5RF valacyclovir 1 gram tablet 1,000 mg PO DAILY 30 Days Qty: 30 5RF lidocaine 5 % adhesive patch,medicated 1 patch topical DAILY PRN (Reason: pain) Qty: 30 2RF Rx Instructions: leave on most painful area for up to 12 hrs budesonide [Pulmicort] 0.5 mg/2 mL suspension for nebulization 0.5 mg inhalation BID Qty: 120 5RF fluticasone propionate [Allergy Relief (fluticasone)] 50 mcg/actuation spra y,suspension 2 spray intranasal DAILY Qty: 16 0RF Rx Instructions: administer into each nostril epinephrine [EpiPen] 0.3 mg/0.3 mL auto-injector 0.3 mg IM Q10M PRN (Reason: anaphylaxis) Qty: 1 2RF Rx Instructions: for 2 doses DOK 100 mg capsule 100 mg PO BID PRN (Reason: Constipation) Discharge Orders: Discharge Order (Routine); Ordered 08/30/22 Ordered By: Cesar Jiménez Referrals: Alivia Cid FNP-C [Nurse Practitioner] - 09/04/22 9:00 am Discharge Diet: Regular Discharge Activity: Resume usual activity and Increase activity as tolerated Patient Instructions: Anemia, Iron Supplements (By mouth), Hydromorphone (By mouth), Opioid Safety Activity Restrictions/Additional Instructions: Follow the primary care provider onsite appointment for more pain medications. Follow-up with Dr. Manley for further recommendations for chemotherapy. Please continue take your iron pills and vitamin B12 medication given severity of anemia. Please repeat CBC with a primary care provider or at oncology office in 1 week. Discharge Attestations Time Spent in Discharge Care*: greater than 30 min Specific Discharge Activities: educating patient, educating and/or supporting family/caregiver, discussing with pcp/other providers, discussing with director of casework services/social workers/dc planners, documenting/other paperwork and evaluating patient/reviewing data Status at Discharge: Cognitive status at discharge: cognitively intact , Behavioral status at discharge: can be uncooperative , Functional status at discharge: independent ambulation , Overall status at discharge: patient is back to baseline Quality Metrics Clinical Quality Measures [ No reported AMI, CVA or VTE this stay] Coding Level of Care Code 83457 Total time (in minutes) for Discharge: 45 Diagnoses Anemia D64.9 Pericardial effusion without cardiac tamponade I31.39 Bladder cancer C67.9
== END 2022-08-30 16:34 | disposition home or self-care (01) ==
LOC: ER 16:23 → MEDSURG 18:31
PROVIDERS: Internal Medicine; Admitting Provider Student in an Organized Health Care Education/Training Program; Emergency Provider Family Medicine; Visit Provider Student in an Organized Health Care Education/Training Program
DX: E53.8 Deficiency of other specified B group vitamins; D50.9 Iron deficiency anemia, unspecified; I34.0 Nonrheumatic mitral (valve) insufficiency; J44.9 Chronic obstructive pulmonary disease, unspecified; F17.200 Nicotine dependence, unspecified, uncomplicated; R94.31 Abnormal electrocardiogram [ECG] [EKG]; I50.9 Heart failure, unspecified; I11.0 Hypertensive heart disease with heart failure; F41.1 Generalized anxiety disorder; R53.83 Other fatigue; C67.9 Malignant neoplasm of bladder, unspecified; Z79.82 Long term (current) use of aspirin; R00.0 Tachycardia, unspecified; I25.10 Atherosclerotic heart disease of native coronary artery without angina pectoris; I31.39 Other pericardial effusion (noninflammatory)
CPT/HCPCS: 36415; 36430; 71045; 80053; 82607; 82746; 83036; 83540; 83550; 83880; 84443; 84484; 85014; 85018; 85025; 86850; 86900; 86920; 93005; 93306; 94640; 96361; 96374; 96375; 99214; 99222; 99285; G0378; J1100; J1940; J2270; J2405; J7613; J7626; P9016

== ENCOUNTER 2022-09-05 16:19 | Observation (INO) | payer MEDICAID, SELFPAY ==
[2022-09-05] VITALS (7 sets, daily range): BP systolic 136–166; BP diastolic 66–87; PULSE 89–115; RESP 15–20; TEMP 36.9–38.6; O2SAT 92–98; BMI 20.2
--- NOTE | 2022-09-05 16:53 | XRR_ITS ---
PROCEDURE INFORMATION: Exam: XR Chest Exam date and time: 09/05/2022 5:14 PM Age: 62 years old Clinical indication: Fever; Prior surgery; Surgery date: 1-6 months; Surgery type: Port? TECHNIQUE: Imaging protocol: Radiologic exam of the chest. Views: 1 view. COMPARISON: CR (CHEST, ) 08/29/2022 4:27 PM FINDINGS: Tubes, catheters and devices: Left subclavian Gwadru-T-Qsgk with tip in the distal SVC. Lungs: Unremarkable. No consolidation. Pleural spaces: Unremarkable. No pleural effusion. No pneumothorax. Heart/Mediastinum: Mild cardiomegaly. Bones/joints: Unremarkable. XR/XR chest 1V portable [id number] IMPRESSION: No acute pulmonary findings.
[2022-09-05] MEDS: acetaminophen 325 mg Tablet 650 MG PO (17:02)
--- NOTE | 2022-09-05 17:06 | W.ED.GENADLT ---
HPI - General Adult General: Chief complaint: General Medical Stated complaint: BLADDER INFECTION, BLADDER CANCER Time Seen by Provider: 09/05/22 16:48 Source: patient Mode of arrival: ambulatory Limitations: no limitations History of Present Illness: 62-year-old female who has a history of bladder cancer states that she was seen over at oncology today she has been having dysuria along with suprapubic abdominal pain she had had a fever with her to that center over here for possible UTI. She had some vomiting she denies any diarrhea she rates her pain a 5 out of 10 currently she is febrile here Associated symptoms: Reports nausea and vomiting; Deny chest pain, dyspnea, headache(s) or rash Review of Systems Const: Reports: fever(s) and chills; Denies: body aches or change in appetite Eyes: Denies: eye discomfort ENMT: Denies: throat pain or dental pain Card: Denies: chest pain Resp: Denies: dyspnea GI: Reports: abdominal pain, nausea and vomiting; Denies: diarrhea : Reports: dysuria Musc: Denies: neck pain or back pain Skin/Breast: Denies: rash Neuro: Denies: headache(s) PFSH ED PFSH: Medical History Allergy to iodine Anxiety, generalized Bladder cancer CAD (coronary artery disease) Chronic post-traumatic stress disorder (PTSD) COPD (chronic obstructive pulmonary disease) Hypertension Lumbar radiculopathy, chronic Port-A-Cath in place Post herpetic neuralgia Vitamin D insufficiency Surgical History History of abdominoplasty History of bladder surgery History of breast augmentation Saline History of heart artery stent 2 stents September 2013 History of tubal ligation Family History Sister Diabetes Brother Diabetes Denies family history of Bleeding disorder Social History Smoking and tobacco status: current every day smoker Second hand smoke exposure: Yes Smoking risk assessment/counseling performed?: Yes Alcohol intake: unknown Desire information about alcohol rehabilitation?: No Counseling given: No Substance/Drug Use: unknown Desire information about substance/drug rehabilitation?: No Counseling given: No Adopted: No Caregiver/support person: No Lives independently: Yes Household members: spouse Marital status: Number of children: 5 service: No Do you think of yourself as: Straight/Heterosexual Current gender identity: Female Physical Exam Const: COMMON NORMALS: patient oriented x3 HENMT: COMMON NORMALS: normocephalic and atraumatic HEAD & SCALP: normocephalic and atraumatic Neck/C-Spine: COMMON NORMALS: full ROM and supple Chest: COMMONS NORMALS: normal inspection of the chest and normal palpation of entire chest wall Resp: COMMON NORMALS: normal respiratory effort, No retractions, No use of accessory muscles and clear to auscultation bilaterally AUSCULTATION: clear to auscultation bilaterally Cardio: COMMON NORMALS: regular rate, regular rhythm and No murmurs present (Cardio) RATE: regular rate RHYTHM: regular rhythm GI: COMMON NORMALS: Normal to inspection, nondistended, normoactive bowel sounds present, Soft to palpation, non-tender and no masses PALPATION: Yes Soft to palpation Extremity: COMMON NORMALS: normal to inspection and full ROM Neuro: COMMON NORMALS: patient oriented x3, moves all extremities and no focal motor deficits Psych: COMMON NORMALS: mental status grossly normal, Normal thought process present and cooperative THOUGHT PROCESS: Normal thought process present Skin: COMMON NORMALS: no rashes or lesions noted and no wounds GENERAL SKIN EXAM: no rashes or lesions noted Course Vital Signs: Vital signs: Vital Signs Temperature 101.5 F H 09/05/22 18:19 Pulse Rate 115 H 09/05/22 18:19 Respiratory Rate 19 H 09/05/22 17:30 Blood Pressure 142/66 09/05/22 18:19 Pulse Oximetry 96 09/05/22 18:19 Oxygen Delivery Me thod Room Air 09/05/22 18:19 MDM - General Adult Medical Decision Making Patient presents here with fever along with dysuria does have a UTI spoke to the hospitalist will admit at this time. Blood pressures been stable here. Medical Records I reviewed the patient's medical records. Lab Data I reviewed the patient's lab results. 09/05/22 17:14 09/05/22 17:14 Radiology Impressions Chest X-Ray 09/05/22 16:53 IMPRESSION: No acute pulmonary findings. Laboratory Results WBC 12.6 10^3/uL (4.0-10.0) H 09/05/22 17:14 RBC 4.69 10^6/uL (4.1-5.3) 09/05/22 17:14 Hgb 10.6 g/dL (11.5-15.3) L 09/05/22 17:14 Hct 37.1 % (37.0-47.0) 09/05/22 17:14 MCV 79.1 fl (81-99) L 09/05/22 17:14 MCH 22.6 pg (28.0-34.0) L 09/05/22 17:14 MCHC 28.6 g/dL (30.0-36.0) L 09/05/22 17:14 RDW 20.6 % (12.1-15.1) H 09/05/22 17:14 Plt Count 413 10^3/cmm (130-400) H 09/05/22 17:14 MPV 9.2 fL (7.4-10.4) 09/05/22 17:14 Neut % (Auto) 75.7 % 09/05/22 17:14 Lymph % (Auto) 12.4 % 09/05/22 17:14 [place] % (Auto) 10.9 % 09/05/22 17:14 Eos % (Auto) 0.2 % 09/05/22 17:14 Baso % (Auto) 0.4 % 09/05/22 17:14 Neut # (Auto) 9.55 10^3/uL (1.8-7.7) H 09/05/22 17:14 Lymph # (Auto) 1.6 10^3/uL (0.8-4.8) 09/05/22 17:14 [place] # (Auto) 1.4 10^3/uL (0.2-0.9) H 09/05/22 17:14 Eos # (Auto) 0.0 10^3/uL (0.0-0.8) 09/05/22 17:14 Baso # (Auto) 0.1 10^3/uL (0.0-0.1) 09/05/22 17:14 Nucleated RBC % (auto) 0 % 09/05/22 17:14 Nucleated RBCs # 0.0 /100WBC 09/05/22 17:14 Sodium 136 mmol/L (136-145) 09/05/22 17:14 Potassium 3.6 mmol/L (3.5-5.1) 09/05/22 17:14 Chloride 98 mmol/L (98-107) 09/05/22 17:14 Carbon Dioxide 25 mmol/L (22-29) 09/05/22 17:14 Anion Gap 16.6 (5-19) 09/05/22 17:14 BUN 11 mg/dL (8-23) 09/05/22 17:14 Creatinine 1.0 mg/dL (0.5-0.9) H 09/05/22 17:14 GFR Calculation 56.4 mL/min (90-130) L 09/05/22 17:14 Glucose 116 mg/dL (65-115) H 09/05/22 17:14 Calculated Osmolality 282 mOsm/kg (285-295) L 09/05/22 17:14 Lactic Acid 1.9 mmol/L (0.5-2.2) 09/05/22 17:14 Calcium 8.9 mg/dL (8.5-10.5) 09/05/22 17:14 Total Bilirubin 0.3 mg/dL (0.15-1.2) 09/05/22 17:14 AST 11 U/L (0-32) 09/05/22 17:14 ALT < 5 U/L (0-33) 09/05/22 17:14 Alkaline Phosphatase 123 U/L (35-105) H 09/05/22 17:14 Total Protein 7.3 g/dL (6.6-8.7) 09/05/22 17:14 Albumin 3.5 g/dL (3.5-5.2) 09/05/22 17:14 Globulin 3.8 g/dL (1.3-4.6) 09/05/22 17:14 Urine Color Red (Yellow) 09/05/22 18:24 Urine Appearance Cloudy (CLEAR) A 09/05/22 18:24 Urine pH 5 (5-7) 09/05/22 18:24 Ur Specific [place] 1.020 (1.005-1.030) 09/05/22 18:24 Urine Protein 2+ (Negative) H 09/05/22 18:24 Urine Glucose (UA) Norm (Normal) 09/05/22 18:24 Urine Ketones 1+ (Negative) H 09/05/22 18:24 Urine Blood 3+ (Negative) H 09/05/22 18:24 Urine Nitrate Negative (Negative) 09/05/22 18:24 Urine Bilirubin 1+ (Negative) H 09/05/22 18:24 Urine Urobilinogen 1 mg/dL (Negative) H 09/05/22 18:24 Ur Leukocyte Esterase 2+ (Negative) H 09/05/22 18:24 Discharge Plan Discharge Condition: Stable Prescriptions: No Action cfgbbll-jnggggzkdrkvh-ltvxeeir 250-250-65 mg tablet 2 tab PO QID PRN (Reason: Pain) artifi.tears(hypromellose)(PF) 0.3 % drops 1 drp ophthalmic (eye) DAILY PRN (Reason: right eye) furosemide 40 mg tablet 80 mg PO DAILY Qty: 60 5RF Rx Instructions: pt states her pcp told her she could take 2 tabs in the morning. potassium chloride 40 mEq/15 mL liquid 40 meq PO DAILY Qty: 450 5RF albuterol sulfate 2.5 mg /3 mL (0.083 %) solution for nebulization 2.5 mg inhalation Q4H PRN (Reason: shortness of breath or wheezing) Qty: 300 5RF albuterol sulfate [ProAir HFA] 90 mcg/actuation HFA aerosol inhaler 2 puff inhalation Q6H PRN (Reason: shortness of breath or wheezing) Qty: 18 5RF valacyclovir 1 gram tablet 1,000 mg PO DAILY 30 Days Qty: 30 5RF lidocaine 5 % adhesive patch,medicated 1 patch topical DAILY PRN (Reason: pain) Qty: 30 2RF Rx Instructions: leave on most painful area for up to 12 hrs budesonide [Pulmicort] 0.5 mg/2 mL suspension for nebulization 0.5 mg inhalation BID Qty: 120 5RF fluticasone propionate [Allergy Relief (fluticasone)] 50 mcg/actuation spray,suspension 2 spray intranasal DAILY Qty: 16 0RF Rx Instructions: administer into each nostril epinephrine [EpiPen] 0.3 mg/0.3 mL auto-injector 0.3 mg IM Q10M PRN (Reason: anaphylaxis) Qty: 1 2RF Rx Instructions: for 2 doses DOK 100 mg capsule 100 mg PO BID PRN (Reason: Constipation) oxycodone-acetaminophen [Percocet] 5-325 mg tablet 1 - 2 tab PO .Q6-8H PRN (Reason: pain) 30 Days Qty: 60 0RF prochlorperazine maleate [Compazine] 10 mg tablet 10 mg PO Q4H PRN (Reason: Mild Nausea) Qty: 30 3RF lorazepam 1 mg tablet 0.5 - 1 mg PO Q6H PRN (Reason: Severe Nausea) Qty: 30 3RF prochlorperazine maleate [Compazine] 10 mg tablet 10 mg PO Q4H PRN (Reason: Mild Nausea) Qty: 30 3RF lorazepam 1 mg tablet 0.5 - 1 mg PO Q6H PRN (Reason: Severe Nausea) Qty: 30 3RF ferrous gluconate 324 mg (37.5 mg iron) Tablet 324 mg PO BIDWM Qty: 60 0RF Dilaudid 2 mg tablet 2 mg PO Q6H PRN (Reason: pain) Qty: 20 0RF cyanocobalamin (vitamin B-12) 1,000 mcg capsule 1,000 mcg PO DAILY Qty: 30 0RF Coding Level of Care Code ED Payroll Benefits Administrator for [employer]
[2022-09-05 17:28] LABS: Basophils # 0.1 10^3/uL (0.0-0.1); Basophils % 0.4 %; Eosinophils % 0.2 %; Hematocrit 37.1 % (37.0-47.0); Hemoglobin 10.6 g/dL (11.5-15.3); Lymphocytes # 1.6 10^3/uL (0.8-4.8); Lymphocytes % 12.4 %; Mean Corpuscular HGB Conc 28.6 g/dL (30.0-36.0); Mean Corpuscular Hemoglobin 22.6 pg (28.0-34.0); Mean Corpuscular Volume 79.1 fl (81-99); Mean Platelet Volume 9.2 fL (7.4-10.4); Monocytes # 1.4 10^3/uL (0.2-0.9); Monocytes % 10.9 %; Neutrophils # 9.55 10^3/uL (1.8-7.7); Neutrophils % 75.7 %; Nucleated Red Blood Cells % 0 %; Platelet Count 413 10^3/cmm (130-400); Red Blood Count 4.69 10^6/uL (4.1-5.3); Red Cell Distribution Width 20.6 % (12.1-15.1); White Blood Count 12.6 10^3/uL (4.0-10.0)
[2022-09-05] MEDS: ondansetron 2 mg/ML SDV 2 mL 4 MG IVP ×2 (17:30→23:11)
[2022-09-05] MEDS: morphine 4 mg/mL SDV 1 mL IVP (17:30)
[2022-09-05 17:46] LABS: Alanine Aminotransferase < 5 U/L (0-33); Albumin Level 3.5 g/dL (3.5-5.2); Alkaline Phosphatase 123 U/L (35-105); Anion Gap 16.6 (5-19); Aspartate Amino Transferase 11 U/L (0-32); Blood Urea Nitrogen 11 mg/dL (8-23); Calcium 8.9 mg/dL (8.5-10.5); Carbon Dioxide 25 mmol/L (22-29); Chloride 98 mmol/L (98-107); Globulin 3.8 g/dL (1.3-4.6); Glomerular Filtration Rate 56.4 mL/min (90-130); Glucose 116 mg/dL (65-115); Osmolality Calculated 282 mOsm/kg (285-295); Potassium 3.6 mmol/L (3.5-5.1); Sodium 136 mmol/L (136-145); Total Bilirubin 0.3 mg/dL (0.15-1.2); Total Protein 7.3 g/dL (6.6-8.7)
[2022-09-05] MEDS: ciprofloxacin 400 MG/200 ML PREMIX 200 MG IV (17:49)
[2022-09-05 18:01] LABS: Lactic Sepsis W/Reflex 1.9 mmol/L (0.5-2.2)
[2022-09-05] MEDS: acetaminophen 500 mg Tablet PO (18:23)
[2022-09-05 18:37] LABS: Charge for UA Resulting for Rev
[2022-09-05 18:57] LABS: Add Urine Microscopic? YES; Bilirubin Urine 1+ (Negative); Blood Urine 3+ (Negative); Glucose Urine UA Norm (Normal); Ketones Urine 1+ (Negative); Leukocyte Esterase Urine 2+ (Negative); Nitrate Urine Negative (Negative); Protein Urine 2+ (Negative); Urine Appearance Cloudy (CLEAR); Urine Color Red (Yellow); Urobilinogen Urine 1 mg/dL (Negative); pH Urine 5 (5-7)
--- NOTE | 2022-09-05 19:47 | P.HP_ITS ---
Providers/Chief Complaint Admitting Physician: Erica Granados MD Chief Complaint: BLADDER INFECTION, BLADDER CANCER History of Present Illness Skye Ambrose is a 62 year old female with history of bladder cancer, was sent from the clinic for febrile episodes, she has not started her chemotherapy yet. She will recent discharge after blood transfusion for her anemia. She follows up with Dr. Manley. She is endorsing dysuria with blood. She is also endorsing hypogastric pain. Febrile episodes for last 48 hours she has not noticed nausea, vomiting diarrhea chest pain or shortness of breath. Patient is stating that her bladder cancer came from all the x-rays she received throughout her life she has been a smoker Review of Systems Const: Reports: fever(s); Denies: chills Eyes: Denies: change in vision ENMT: Denies: throat pain Card: Denies: chest pain Resp: Denies: dyspnea GI: Denies: abdominal pain : Denies: flank pain Musc: Denies: neck pain Skin/Breast: Denies: rash Neuro: Denies: headache(s) Psych: Denies: anxiety Endo: Denies: polyuria Ronny/Lymph: Denies: easy bruising Medications/Allergies Home Medications Medication Instructions Recorded Confirmed Last Taken Type artifi.tears(hypromellose)(PF) 0.3 1 drp ophthalmic (eye) DAILY PRN 03/20/22 09/05/22 06/11/22 History % eye drops right eye oxjktic-hxzbnkilprtsi-ilmziwvs 250 2 tab PO QID PRN Pain 03/20/22 09/05/22 06/11/22 History mg-250 mg-65 mg tablet albuterol sulfate 2.5 mg/3 mL 2.5 mg (3 mL) inhalation Q4H PRN 04/02/22 09/05/22 06/12/22 07:00 Rx (0.083 %) solution for nebulization shortness of breath or wheezing #300 mL albuterol sulfate 90 mcg/actuation 2 puff inhalation Q6H PRN 04/02/22 09/05/22 06/12/22 07:00 Rx aerosol inhaler (ProAir HFA) shortness of breath or wheezing #18 grams budesonide 0.5 mg/2 mL suspension 0.5 mg (2 mL) inhalation BID #120 04/02/22 09/05/2206/11/23 Rx for nebulization (Pulmicort) mL epinephrine 0.3 mg/0.3 mL 0.3 mg (0.3 mL) IM Q10M PRN 04/02/22 09/05/22 04/15/22 Rx injection, auto-injector (EpiPen) anaphylaxis #1 ea fluticasone propionate 50 2 spray intranasal DAILY #16 grams 04/02/22 09/05/22 06/11/22 Rx mcg/actuation nasal spray,suspension (Allergy Relief (fluticasone)) furosemide 40 mg tablet 80 mg PO DAILY #60 tabs 04/02/22 09/05/22 06/11/22 Rx lidocaine 5 % topical patch 1 patch topical DAILY PRN pain #30 04/02/22 09/05/22 06/04/22 Rx ea potassium chloride 40 mEq/15 mL 40 meq (15 mL) PO DAILY #450 mL 04/02/22 09/05/22 06/11/22 Rx oral liquid valacyclovir 1 gram tablet 1,000 mg PO DAILY 30 days #30 tabs 04/02/22 09/05/22 06/11/22 Rx docusate sodium 100 mg capsule 100 mg PO BID PRN Constipation 08/29/22 09/05/22 Unknown History (DOK) cyanocobalamin (vitamin B-12) 1,000 mcg PO DAILY #30 caps 08/30/22 09/05/22 Unknown Rx 1,000 mcg capsule ferrous gluconate 324 mg (37.5 mg 324 mg PO BIDWM #60 tabs 08/30/22 09/05/22 Unknown Rx iron) tablet hydromorphone 2 mg tablet 2 mg PO Q6H PRN pain #20 tabs 08/30/22 09/05/22 Unknown Rx (Dilaudid) lorazepam 1 mg tablet 0.5 - 1 mg PO Q6H PRN Severe 09/02/22 09/05/22 Unknown Rx Nausea #30 tabs lorazepam 1 mg tablet 0.5 - 1 mg PO Q6H PRN Severe 09/02/22 09/05/22 Unknown Rx Nausea #30 tabs prochlorperazine maleate 10 mg 10 mg PO Q4H PRN Mild Nausea #30 09/02/22 09/05/22 Unknown Rx tablet (Compazine) tabs prochlorperazine maleate 10 mg 10 mg PO Q4H PRN Mild Nausea #30 09/02/22 09/05/22 Unknown Rx tablet (Compazine) tabs oxycodone-acetaminophen 5 mg-325 1 - 2 tab PO .Q6-8H PRN pain 30 09/04/22 09/05/22 Unknown Rx mg tablet (Percocet) days #60 tabs Allergies Allergy/AdvReac Type Severity Reaction Status Date / Time ceftriaxone [From Rocephin] Allergy Severe ALGY-Anaphy Verified 09/05/22 11:05 laxis cephalexin [From Keflex] Allergy Severe ALGY-Anaphy Verified 09/05/22 11:05 laxis eszopiclone [Lunesta] Allergy Severe ADR-Agitate Verified 09/05/22 11:05 d zaleplon [From Sonata] Allergy Severe ADR-Halluci Verified 09/05/22 11:05 nating zolpidem [From Ambien] Allergy Severe ADR-Halluci Verified 09/05/22 11:05 nating dextromethorphan Allergy Intermediate ADR-Halluci Verified 09/05/22 11:05 nating Iodinated Contrast Media Allergy UNK Verified 09/05/22 11:05 ketoprofen Allergy Unknown Verified 09/05/22 11:05 ketorolac [From Toradol] Allergy UNK Verified 09/05/22 11:05 mirtazapine [From Remeron] Allergy UNK Verified 09/05/22 11:05 nitrofurantoin Allergy UNK Verified 09/05/22 11:05 [From Macrobid] rofecoxib [From Vioxx] Allergy UNK Verified 09/05/22 11:05 sulfamethoxazole Allergy UNK Verified 09/05/22 11:05 [From Bactrim] sumatriptan [From Imitrex] Allergy UNK Verified 09/05/22 11:05 trimethoprim [From Bactrim] Allergy UNK Verified 09/05/22 11:05 PFSH Acute PFSH: Medical History (Updated 09/05/22 @ 19:50 by Burak Hager MD) Allergy to iodine Anxiety, generalized Bladder cancer CAD (coronary artery disease) Chronic post-traumatic stress disorder (PTSD) COPD (chronic obstructive pulmonary disease) Hypertension Lumbar radiculopathy, chronic Pericardial effusion without cardiac tamponade Port-A-Cath in place Post herpetic neuralgia Vitamin D insufficiency Surgical History History of abdominoplasty History of bladder surgery History of breast augmentation Saline History of heart artery stent 2 stents September 2013 History of tubal ligation Family History Sister Diabetes Brother Diabetes Denies family history of Bleeding disorder Social History Smoking and tobacco status: current every day smoker Second hand smoke exposure: Yes Smoking risk assessment/counseling performed?: Yes Alcohol intake: unknown Desire information about alcohol rehabilitation?: No Counseling given: No Substance/Drug Use: unknown Desire information about substance/drug rehabilitation?: No Counseling given: No Adopted: No Caregiver/support person: No Lives independently: Yes Household members: spouse Marital status: Number of children: 5 service: No Do you think of yourself as: Straight/Heterosexual Current gender identity: Female Vitals/I&O/Wt Last Vital Signs Temp 101.5 F H 09/05/22 18:19 Pulse 95 09/05/22 19:00 Resp 15 09/05/22 19:00 BP 136/66 09/05/22 19:00 Pulse Ox 96 09/05/22 19:00 O2 Del Method Room Air 09/05/22 19:00 09/05/22 09/05/22 09/05/22 06:59 14:59 22:59 Intake Total 200 / 200 Balance 200 / 200 Weight last 48 hrs Weight 48.534 kg Physical Exam Narrative: Patient is awake and alert Complaining of epigastric pain Clinically dehydrated S1, S2 GCS 15 Nonfocal neuro exam Abdomen soft hypogastric region tenderness on deep palpation Appears stated age Data 09/05/22 17:14 09/05/22 17:14 Micro: Microbiology 09/05/22 17:33 Blood Culture - Preliminary Blood SPECIMEN COLLECTED 09/05/22 17:14 Blood Culture - Preliminary Blood SPECIMEN COLLECTED A&P Assessment and plan (1) Port-A-Cath in place: (2) Bladder cancer: Plan UTI No sign of sepsis Start antibiotics Judicious use of IV fluids Patient not septic EF 40% Patient has not started chemotherapy for bladder cancer Follows up with Dr. Manley Leukocytosis, normal lactic acid Previous history of pericardial fusion, no signs of cardiac tamponade Iron-deficiency anemia status post blood transfusion: Hemoglobin stable Full code Regular diet DVT prophylaxis on board PET scan MPRESSION: 1. ? Significant interval increase in radiotracer avid lymphadenopathy in the chest, abdomen and pelvis compatible with increased neoplastic involvement. 2. ? New diffuse abnormal uptake throughout the uterus which is abnormal postmenopausal female concerning for malignancy. 3. ? New soft tissue density lesion in the distal right ureter extending to the ureterovesical junction concerning for neoplastic involvement. 4. ? Uptake in the sigmoid colon is noted and is somewhat focal where there is a region of streaky soft tissue density extending between bowel loops in this region. This may represent physiologic uptake in a region of scarring versus localized inflammatory, infectious or neoplastic involvement. 5. ? New focus of elevated uptake at the right C3-C4 facet. This may be degenerative in nature although an osseous metastatic lesion cannot be excluded. 6. ? Interval resolution of a previously noted right lower lobe nodule compared with the prior PET-CT. 7. ? Moderate pericardial effusion, increased in size. 8. ? Aneurysmal dilatation of the abdominal aorta. 9. ? Additional nonurgent findings as detailed above. Attestations Medical Necessity Statement*: Less than 2 midnights anticipated for management of UTI in immunocompromised patient with bladder cancer Coding Level of Care Code 65801 Moderate MDM includes number and complexity of problems actively addressed during encounter, amount and/or complexity of data reviewed/ordered and described risk of complication, morbidity or mortality of management as docu mented Diagnoses Port-A-Cath in place Z95.828 Bladder cancer C67.9
--- NOTE | 2022-09-05 20:06 | PC.NURSE ---
Patient refusing gown.
--- NOTE | 2022-09-05 20:07 | PC.NURSE ---
Patient educated that she is on a cardiac diet. Patient states oh no, I will throw a fit. I don't need to be on a cardiac diet. Dr. Granados notified.
[2022-09-05] MEDS: sodium chloride 0.9% 1,000 ML 75 ML IV (21:08)
[2022-09-05] MEDS: heparin 5,000 unit/mL INJ 1 mL 5000 UNIT SUBCUT (21:09)
[2022-09-05] MEDS: piperacillin-tazobactam 3.375 GM in sodium chloride 0.9% (plus) 50 ML IV (21:10)
[2022-09-05] MEDS: morphine IR 15 mg Tablet PO (21:13)
[2022-09-06] VITALS (14 sets, daily range): BP systolic 133–160; BP diastolic 66–82; PULSE 91–114; RESP 16–18; TEMP 36.8–38.8; O2SAT 91–97
[2022-09-06 00:46] LABS: Vitamin B12 332 pg/mL (232-1245)
[2022-09-06] MEDS: morphine IR 15 mg Tablet PO ×2 (03:05→18:22)
[2022-09-06] MEDS: metoclopramide 5 mg/mL SDV 2 mL 10 MG IVP (03:28)
[2022-09-06] MEDS: acetaminophen 500 mg Tablet PO (03:28)
--- NOTE | 2022-09-06 03:31 | PC.NURSE ---
Patient states those IV fluids are going to have to be turned off. I can feel it building up in my legs and my lungs. I know my body. IV Fluids turned off. Patient refusing to have IV Fluids at this time.
--- NOTE | 2022-09-06 03:56 | PC.NURSE ---
Pt stated she did not want her IV fluids anymore due to having CHF and not wanting her lungs to fill up . Education provided to patient and fluids stopped. Pt calm comfortable and in no distress at this time.
[2022-09-06 04:17] LABS: Basophils # 0.1 10^3/uL (0.0-0.1); Basophils % 0.5 %; Eosinophils # 0.1 10^3/uL (0.0-0.8); Eosinophils % 0.5 %; Hematocrit 33.5 % (37.0-47.0); Hemoglobin 9.6 g/dL (11.5-15.3); Lymphocytes # 1.3 10^3/uL (0.8-4.8); Mean Corpuscular HGB Conc 28.7 g/dL (30.0-36.0); Mean Corpuscular Volume 80.1 fl (81-99); Mean Platelet Volume 9.1 fL (7.4-10.4); Monocytes # 1.3 10^3/uL (0.2-0.9); Monocytes % 12.4 %; Neutrophils # 7.44 10^3/uL (1.8-7.7); Neutrophils % 73.2 %; Nucleated Red Blood Cells % 0 %; Platelet Count 328 10^3/cmm (130-400); Red Blood Count 4.18 10^6/uL (4.1-5.3); Red Cell Distribution Width 20.5 % (12.1-15.1); White Blood Count 10.2 10^3/uL (4.0-10.0)
[2022-09-06 04:39] LABS: Anion Gap 15.4 (5-19); Blood Urea Nitrogen 11 mg/dL (8-23); C Reactive Protein 134.5 mg/L (0.0-4.9); Calcium 8.6 mg/dL (8.5-10.5); Carbon Dioxide 24 mmol/L (22-29); Chloride 98 mmol/L (98-107); Glomerular Filtration Rate 72.9 mL/min (90-130); Glucose 122 mg/dL (65-115); Magnesium 1.7 mg/dL (1.7-2.3); Osmolality Calculated 279 mOsm/kg (285-295); Phosphorus 2.4 mg/dL (2.5-4.5); Potassium 3.4 mmol/L (3.5-5.1); Sodium 134 mmol/L (136-145)
[2022-09-06] MEDS: piperacillin-tazobactam 3.375 GM in sodium chloride 0.9% (plus) 50 ML IV (05:03)
[2022-09-06] MEDS: morphine 4 mg/mL SDV 1 mL 2 MG IVP ×4 (06:25→19:28)
[2022-09-06] MEDS: meropenem 500 MG in sodium chloride 0.9% (plus) 50 ML 100 MG IV ×2 (09:50→16:49)
[2022-09-06] MEDS: sennosides-docusate Tablet 1 TAB PO (10:26)
[2022-09-06] MEDS: ondansetron 2 mg/ML SDV 2 mL 4 MG IVP ×2 (10:26→18:29)
[2022-09-06] MEDS: pneumococcal (23 valent) SDV 0.5 mL IM (10:27)
--- NOTE | 2022-09-06 11:20 | P.PN_ITS ---
Subjective Subjective: Change antibiotics Febrile overnight Cultures pending Patient complaining of pain in her pelvis Discontinue IV fluids Able to tolerate diet Vitals/I&O/Wt Last Vital Signs Temp 98.2 F 09/06/22 07:58 Pulse 91 09/06/22 07:58 Resp 18 09/06/22 10:24 BP 153/79 09/06/22 07:58 Pulse Ox 96 09/06/22 07:58 O2 Del Method Room Air 09/06/22 07:20 09/05/22 09/06/22 09/06/22 22:59 06:59 14:59 Intake Total 200 / 200 1028.75 / 1228.75 338.125 / 338.125 Balance 200 / 200 1028.75 / 1228.75 338.125 / 338.125 Weight last 48 hrs Weight 48.534 kg Physical Exam Narrative: Awake and alert Dehydrated Abdomen soft GCS 15 S1, S2 Sitting comfortably in her bed Currently on room air Nonfocal neuro exam Data 09/06/22 03:54 09/06/22 03:54 Micro: Microbiology 09/05/22 17:33 Blood Culture - Preliminary Blood SPECIMEN COLLECTED 09/05/22 17:14 Blood Culture - Preliminary Blood SPECIMEN COLLECTED A&P Assessment and plan (1) Anemia: (2) Port-A-Cath in place: (3) UTI (urinary tract infection): Plan History of bladder cancer Currently suffering with UTI No signs of sepsis Febrile events noted overnight, no endorgan damage at this point I have changed antibiotics to carbapenems Full code Monitor for next 24 to 48 hours Patient will get IV morphine for her pelvic pain I will obtain CT scan of abdominal pelvis Regular diet Hypokalemia repleted Attestations Medical Necessity Statement*: Continue medical manage Coding Level of Care Code 11992 Moderate MDM includes number and complexity of problems actively addressed during encounter, amount and/or complexity of data reviewed/ordered and described risk of complication, morbidity or mortality of management as docu mented Diagnoses Anemia D64.9 Port-A-Cath in place Z95.828 UTI (urinary tract infection) N39.0
--- NOTE | 2022-09-06 11:25 | CT_ITS ---
WS: [id number] CT ABDOMEN PELVIS TECHNIQUE: Noncontrast CT of the abdomen and pelvis with coronal and sagittal reformatted images. CLINICAL INFORMATION: UTI COMPARISON: PET CT August 24, [address] January 18, 2022 DLP: 320.[address] scans at [facility] use at least one of these dose optimization techniques: automated e xposure control; mA and/or kV adjustment per patient size (includes targeted exams where dose is matc hed to clinical indication); or iterative reconstruction. FINDINGS: Small partially visualized pericardial effusion. Small RIGHT pleural effusion with compress ayo atelectasis RIGHT lower lobe. Normal noncontrast liver. Normal noncontrast spleen. Normal GE junc tion. Adrenal glands are normal. Moderate to advanced RIGHT hydronephrosis progressed compared to re cent PET/CT.. RIGHT ureterectasis. RIGHT ureter is dilated to the RIGHT UVJ. Suspected obstructing le evan RIGHT UVJ better evaluated on the recent PET/CT. Mild LEFT hydronephrosis progressed compared to the recent PET/CT. Bladder is decompressed with wall thickening. This can be further evaluated with cystoscopy. FDG avid abdominal pelvic lymphadenopathy appears unchanged. Sigmoid diverticulosis. No evidence of acute diverticulitis. No high-grade obstruction. Enlarged pelv ic sidewall and femoral lymph nodes FDG avid on the prior PET/CT. Internal and external iliac lymphad enopathy. A few prominent inguinal lymph nodes. Chronic compression superior endplate L5 is unchanged . Bulky noncontrast uterus with FDG avid activity on the prior PET/CT suspicious for neoplasm. Aneurys mal infrarenal abdominal aorta. This measures 3.7 x 3.6 cm AP by transverse in maximum dimension. 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 CT/CT abdomen pelvis wo con [id number] IMPRESSION: 1. Small pericardial effusion partially visualized. Small RIGHT pleural effusi on with compressive atelectasis RIGHT lower lobe. 2. Recently described FDG avid abdominal and pelvic lymphadenopathy unchanged. 3. Progressed moderate to severe hydronephrosis with RIGHT ureterectasis. Susp ected obstructing FDG avid neoplastic lesion at the RIGHT UVJ. Increased perine phric induration suspicious for pyelonephritis. 4. Mild LEFT hydronephrosis has progressed. LEFT ureter is dilated to the UVJ. 5. Bladder is decompressed with wall thickening. This can be further evaluated with cystoscopy. 6. Bulky noncontrast uterus which demonstrated FDG activity on the recent PET/ CT suspicious for neoplasm. 7. Sigmoid diverticulosis. 8. Mild induration in the subcutaneous soft tissues anterior to the pubic symp hysis suspicious for cellulitis. No drainable fluid collections.
[2022-09-06] MEDS: potassium chloride oral liq 20 mEq/15 mL UDC 40 MEQ PO (13:57)
[2022-09-06] MEDS: nicotine 14 mg Patch 1 PATCH TRANSDERMA ×2 (13:57→22:07)
[2022-09-06] MEDS: FUROsemide 10 mg/mL SDV 10mL 20 MG IVP (16:48)
[2022-09-07] VITALS (10 sets, daily range): BP systolic 129–138; BP diastolic 69–76; PULSE 93–102; RESP 16–20; TEMP 37.1–37.4; O2SAT 94–95
[2022-09-07] MEDS: meropenem 500 MG in sodium chloride 0.9% (plus) 50 ML 100 MG IV ×2 (00:27→08:48)
[2022-09-07] MEDS: ondansetron 2 mg/ML SDV 2 mL 4 MG IVP ×2 (00:37→08:35)
[2022-09-07] MEDS: morphine 4 mg/mL SDV 1 mL 2 MG IVP ×3 (00:37→08:32)
[2022-09-07] MEDS: morphine IR 15 mg Tablet PO ×2 (02:24→11:10)
[2022-09-07 04:05] LABS: Basophils % 0.4 %; Eosinophils # 0.2 10^3/uL (0.0-0.8); Eosinophils % 1.9 %; Hematocrit 31.3 % (37.0-47.0); Hemoglobin 8.8 g/dL (11.5-15.3); Lymphocytes # 1.6 10^3/uL (0.8-4.8); Lymphocytes % 16.9 %; Mean Corpuscular HGB Conc 28.1 g/dL (30.0-36.0); Mean Corpuscular Hemoglobin 22.5 pg (28.0-34.0); Mean Corpuscular Volume 80.1 fl (81-99); Mean Platelet Volume 9.1 fL (7.4-10.4); Monocytes # 1.2 10^3/uL (0.2-0.9); Neutrophils # 6.36 10^3/uL (1.8-7.7); Neutrophils % 67.5 %; Nucleated Red Blood Cells % 0 %; Platelet Count 326 10^3/cmm (130-400); Red Blood Count 3.91 10^6/uL (4.1-5.3); Red Cell Distribution Width 20.1 % (12.1-15.1); White Blood Count 9.4 10^3/uL (4.0-10.0)
[2022-09-07 04:28] LABS: Anion Gap 12.7 (5-19); Blood Urea Nitrogen 11 mg/dL (8-23); Calcium 8.8 mg/dL (8.5-10.5); Carbon Dioxide 26 mmol/L (22-29); Chloride 96 mmol/L (98-107); Glomerular Filtration Rate 72.9 mL/min (90-130); Glucose 102 mg/dL (65-115); Osmolality Calculated 272 mOsm/kg (285-295); Potassium 3.7 mmol/L (3.5-5.1); Sodium 131 mmol/L (136-145)
[2022-09-07] MEDS: FUROsemide 10 mg/mL SDV 2mL 20 MG IVP (04:35)
[2022-09-07] MEDS: FUROsemide 40 mg Tablet 20 MG PO (08:49)
[2022-09-07] MEDS: cetirizine 10 mg Tablet PO (08:50)
[2022-09-07] MEDS: valACYclovir 1,000 mg Tablet 1000 MG PO (08:50)
--- NOTE | 2022-09-07 11:22 | P.PN_ITS ---
Subjective Subjective: This morning patient was upset that we have not allowed her to get out of the building I did tell her that I will touch base with my charge nurse to review hospital protocol, I was told we can allow any patient to leave the building Patient got upset and want to leave AMA I did tell her that her urine is showing gram-negative stacie and we are seeing low-grade fever as compared to high-grade day before yesterday She is endorsing that morphine has helped to reduce her pain level Vitals/I&O/Wt Last Vital Signs Temp 98.8 F 09/07/22 07:58 Pulse 93 09/07/22 08:00 Resp 16 09/07/22 11:10 BP 130/72 09/07/22 07:58 Pulse Ox 94 09/07/22 08:32 O2 Del Method Room Air 09/07/22 08:00 09/06/22 09/07/22 09/07/22 22:59 06:59 14:59 Intake Total 290 / 1108.125 50 / 1158.125 410 / 410 Balance 290 / 1108.125 50 / 1158.125 410 / 410 Weight last 48 hrs Weight 48.534 kg Physical Exam Narrative: Awake and alert GCS 15 Euvolemic Abdominal pain improved Currently on room air GCS 15 Nonfocal neuro exam S1, S2 Data 09/07/22 03:46 09/07/22 03:46 Micro: Microbiology 09/05/22 17:33 Blood Culture - Preliminary Blood NEGATIVE TO DATE 09/05/22 17:14 Blood Culture - Preliminary Blood NEGATIVE TO DATE Other data: Recent PET scan report IMPRESSION: 1. ? Significant interval increase in radiotracer avid lymphadenopathy in the chest, abdomen and pelvis compatible with increased neoplastic involvement. 2. ? New diffuse abnormal uptake throughout the uterus which is abnormal postmenopausal female concerning for malignancy. 3. ? New soft tissue density lesion in the distal right ureter extending to the ureterovesical junction concerning for neoplastic involvement. 4. ? Uptake in the sigmoid colon is noted and is somewhat focal where there is a region of streaky soft tissue density extending between bowel loops in this region. This may represent physiologic uptake in a region of scarring versus localized inflammatory, infectious or neoplastic involvement. 5. ? New focus of elevated uptake at the right C3-C4 facet. This may be degenerative in nature although an osseous metastatic lesion cannot be excluded. 6. ? Interval resolution of a previously noted right lower lobe nodule compared with the prior PET-CT. 7. ? Moderate pericardial effusion, increased in size. 8. ? Aneurysmal dilatation of the abdominal aorta. 9. ? Additional nonurgent findings as detailed above A&P Assessment and plan (1) UTI (urinary tract infection): (2) Anemia: (3) Bladder cancer: (4) Lumbar radiculopathy, chronic: (5) Anxiety, generalized: (6) Hypertension: Qualifiers: Hypertension type: essential hypertension Qualified Code(s): I10 - Essential (primary) hypertension (7) Pyelonephritis: Plan 62-year female with history of bladder cancer who has not started chemo therapy yet, hypertensive, presented with chief complaint of high-grade fevers, she was diagnosed with UTI, initially she received Zosyn which was escalated to meropenem when CT scan showed pyelonephritis, urine culture showing gram- negative stacie Pyelonephritis I requested CT abdomen pelvis because of her persistent high-grade fever which is showing progress moderate to severe hydronephrosis suspected obstructing right UVJ secondary to neoplasm, concern for pyelonephritis Cancer has involved her uterus as well, will discuss with Dr. Crespo Gram-negative stacie in her urine culture Leukocytosis trending down Low-grade fever today Continue meropenem Patient is threatening to leave A because she is upset that we are not letting her get out of the building As per hospital protocol we cannot allow her to leave the building for now Charge nurse notified Pelvic pain: CT scan did detect cellulitis, Currently she is on antibiotics with meropenem I will add vancomycin Mild INDRA: Resolved Small pericardial effusion: No hemodynamic compromise, 08/31, echo did not show significant hemodynamic compromise or remarkable findings on echo History of back pain I have continued her on morphine Patient is having regular bowel movement History of bladder cancer: Follows up with cancer clinic, has not started her chemotherapy yet Mets to lymph nodes, Full code Regular diet Change to inpatient Attestations Medical Necessity Statement*: Continue medical therapy Coding Level of Care Code 48084 Moderate MDM includes number and complexity of problems actively addressed during encounter, amount and/or complexity of data reviewed/ordered and described risk of complication, morbidity or mortality of management as document ed Diagnoses UTI (urinary tract infection) N39.0 Anemia D64.9 Bladder cancer C67.9 Lumbar radiculopathy, chronic M54.16 Anxiety, generalized F41.1 Hypertension I10 Hypertension type: essential hypertension Pyelonephritis N12
--- NOTE | 2022-09-07 11:34 | P.DS_ITS ---
Discharge Providers Date of Admission: 09/05/22 18:58 Date of Discharge: September 07, 2022 Attending Provider at Admission: Erica Granados MD Attending Provider at Discharge: Burak Hager MD Diagnoses at Discharge Discharge Diagnosis (1) UTI (urinary tract infection): Status: Acute (2) Anemia: Status: Acute (3) Bladder cancer: Status: Acute (4) Lumbar radiculopathy, chronic: Status: Chronic (5) Anxiety, generalized: Status: Chronic (6) Hypertension: Status: Chronic Qualifiers: Hypertension type: essential hypertension Qualified Code(s): I10 - Essential (primary) hypertension (7) Pyelonephritis: Status: Acute Reason for Visit Reason for Visit: BLADDER INFECTION, BLADDER CANCER Hospital Course Hospital Course 62-year-old female who was admitted for management of UTI, CT abdomen pelvis consistent with pyelonephritis, there was concern for neoplastic lesion related obstructive right UVJ, I was discussing her case with Dr. Crespo when patient decided to leave [facility], I did tell the patient that she is taking a big risk because this cancer seems to be involving her uterus, lymph nodes and right UVJ, at this point White count trending down, creatinine normalized, I will still go ahead and prescribe her antibiotics, patient is stating that she will see Dr. Manley on Friday, she does not show any signs of hemodynamic compromise per icardial effusion noted on the CT abdomen pelvis, recent echo was reviewed which did not show significant changes as well, blood cultures negative. This patient is high risk for complications including worsening of pyelonephritis, sepsis, septic shock, renal failure, she is high risk for readmissions, patient has left AMA because she was upset that hospital policy does not allow patients to get out of the building: Patient stated that we cannot keep her as a prisoner in the hospital. I did call patient back and told her that I have prescribed levofloxacin Physical Exam Narrative: Awake and alert GCS 15 nonfocal neuro exam S1, S2 Discharge Data Studies Completed and Pending Completed Studies During Hospitalization Category Date Time Status CT abdomen pelvis wo con [id number] Routine Cat Scan 09/06/22 11:25 Completed XR chest 1V portable [id number] Stat Exams 09/05/22 16:53 Completed Pending at discharge Category Date Time Status BMP [Basic Metabolic Panel] AM LABS Lab 09/08/22 04:00 Ordered Blood Culture Stat Lab 09/05/22 17:33 Results CBC Auto Diff [Complete Blood Count w/Auto] AM LABS Lab 09/08/22 04:00 Ordered Radiology Impressions Chest X-Ray 09/05/22 16:53 IMPRESSION: No acute pulmonary findings. Abdomen/Pelvis CT 09/06/22 11:25 IMPRESSION: 1. Small pericardial effusion partially visualized. Small RIGHT pleural effusion with compressive atelectasis RIGHT lower lobe. 2. Recently described FDG avid abdominal and pelvic lymphadenopathy unchanged. 3. Progressed moderate to severe hydronephrosis with RIGHT ureterectasis. Suspected obstructing FDG avid neoplastic lesion at the RIGHT UVJ. Increased perinephric induration suspicious for pyelonephritis. 4. Mild LEFT hydronephrosis has progressed. LEFT ureter is dilated to the UVJ. 5. Bladder is decompressed with wall thickening. This can be further evaluated with cystoscopy. 6. Bulky noncontrast uterus which demonstrated FDG activity on the recent PET/CT suspicious for neoplasm. 7. Sigmoid diverticulosis. 8. Mild induration in the subcutaneous soft tissues anterior to the pubic symphysis suspicious for cellulitis. No drainable fluid collections. Laboratory Results WBC 9.4 10^3/uL (4.0-10.0) 09/07/22 03:46 RBC 3.91 10^6/uL (4.1-5.3) L 09/07/22 03:46 Hgb 8.8 g/dL (11.5-15.3) L 09/07/22 03:46 Hct 31.3 % (37.0-47.0) L 09/07/22 03:46 MCV 80.1 fl (81-99) L 09/07/22 03:46 MCH 22.5 pg (28.0-34.0) L 09/07/22 03:46 MCHC 28.1 g/dL (30.0-36.0) L 09/07/22 03:46 RDW 20.1 % (12.1-15.1) H 09/07/22 03:46 Plt Count 326 10^3/cmm (130-400) 09/07/22 03:46 MPV 9.1 fL (7.4-10.4) 09/07/22 03:46 Neut % (Auto) 67.5 % 09/07/22 03:46 Lymph % (Auto) 16.9 % 09/07/22 03:46 [place] % (Auto) 13.0 % 09/07/22 03:46 Eos % (Auto) 1.9 % 09/07/22 03:46 Baso % (Auto) 0.4 % 09/07/22 03:46 Neut # (Auto) 6.36 10^3/uL (1.8-7.7) 09/07/22 03:46 Lymph # (Auto) 1.6 10^3/uL (0.8-4.8) 09/07/22 03:46 [place] # (Auto) 1.2 10^3/uL (0.2-0.9) H 09/07/22 03:46 Eos # (Auto) 0.2 10^3/uL (0.0-0.8) 09/07/22 03:46 Baso # (Auto) 0.0 10^3/uL (0.0-0.1) 09/07/22 03:46 Nucleated RBC % (auto) 0 % 09/07/22 03:46 Nucleated RBCs # 0.0 /100WBC 09/07/22 03:46 Sodium 131 mmol/L (136-145) L 09/07/22 03:46 Potassium 3.7 mmol/L (3.5-5.1) 09/07/22 03:46 Chloride 96 mmol/L (98-107) L 09/07/22 03:46 Carbon Dioxide 26 mmol/L (22-29) 09/07/22 03:46 Anion Gap 12.7 (5-19) 09/07/22 03:46 BUN 11 mg/dL (8-23) 09/07/22 03:46 Creatinine 0.8 mg/dL (0.5-0.9) 09/07/22 03:46 GFR Calculation 72.9 mL/min (90-130) L 09/07/22 03:46 Glucose 102 mg/dL (65-115) 09/07/22 03:46 Calculated Osmolality 272 mOsm/kg (285-295) L 09/07/22 03:46 Lactic Acid 1.9 mmol/L (0.5-2.2) 09/05/22 17:14 Calcium 8.8 mg/dL (8.5-10.5) 09/07/22 03:46 Phosphorus 2.4 mg/dL (2.5-4.5) L 09/06/22 03:54 Magnesium 1.7 mg/dL (1.7-2.3) 09/06/22 03:54 Total Bilirubin 0.3 mg/dL (0.15-1.2) 09/05/22 17:14 AST 11 U/L (0-32) 09/05/22 17:14 ALT < 5 U/L (0-33) 09/05/22 17:14 Alkaline Phosphatase 123 U/L (35-105) H 09/05/22 17:14 C-Reactive Protein 134.5 mg/L (0.0-4.9) H 09/06/22 03:54 Total Protein 7.3 g/dL (6.6-8.7) 09/05/22 17:14 Albumin 3.5 g/dL (3.5-5.2) 09/05/22 17:14 Globulin 3.8 g/dL (1.3-4.6) 09/05/22 17:14 Vitamin B12 332 pg/mL (232-1245) 09/05/22 17:14 Urine Color Red (Yellow) 09/05/22 18:24 Urine Appearance Cloudy (CLEAR) A 09/05/22 18:24 Urine pH 5 (5-7) 09/05/22 18:24 Ur Specific [place] 1.020 (1.005-1.030) 09/05/22 18:24 Urine Protein 2+ (Negative) H 09/05/22 18:24 Urine Glucose (UA) Norm (Normal) 09/05/22 18:24 Urine Ketones 1+ (Negative) H 09/05/22 18:24 Urine Blood 3+ (Negative) H 09/05/22 18:24 Urine Nitrate Negative (Negative) 09/05/22 18:24 Urine Bilirubin 1+ (Negative) H 09/05/22 18:24 Urine Urobilinogen 1 mg/dL (Negative) H 09/05/22 18:24 Ur Leukocyte Esterase 2+ (Negative) H 09/05/22 18:24 Vitals Last Vital Signs Temp 98.8 F 09/07/22 11:33 Pulse 93 09/07/22 11:33 Resp 16 09/07/22 11:33 BP 130/72 09/07/22 11:33 Pulse Ox 94 09/07/22 11:33 O2 Del Method Room Air 09/07/22 08:00 Discharge Plan Discharge Patient Disposition: Left Against Medical Advice Condition: Stable Prescriptions: New levofloxacin 750 mg tablet 750 mg PO DAILY 14 Days Qty: 14 0RF Continued artifi.tears(hypromellose)(PF) 0.3 % drops 1 drp ophthalmic (eye) DAILY PRN (Reason: right eye) furosemide 40 mg tablet 80 mg PO DAILY Qty: 60 5RF Rx Instructions: pt states her pcp told her she could take 2 tabs in the morning. potassium chloride 40 mEq/15 mL liquid 40 meq PO DAILY Qty: 450 5RF albuterol sulfate 2.5 mg /3 mL (0.083 %) solution for nebulization 2.5 mg inhalation Q4H PRN (Reason: shortness of breath or wheezing) Qty: 300 5RF albuterol sulfate [ProAir HFA] 90 mcg/actuation HFA aerosol inhaler 2 puff inhalation Q6H PRN (Reason: shortness of breath or wheezing) Qty: 18 5RF valacyclovir 1 gram tablet 1,000 mg PO DAILY 30 Days Qty: 30 5RF lidocaine 5 % adhesive patch,medicated 1 patch topical DAILY PRN (Reason: pain) Qty: 30 2RF Rx Instructions: leave on most painful area for up to 12 hrs budesonide [Pulmicort] 0.5 mg/2 mL suspension for nebulization 0.5 mg inhalation BID Qty: 120 5RF fluticasone propionate [Allergy Relief (fluticasone)] 50 mcg/actuation spray,suspension 2 spray intranasal DAILY Qty: 16 0RF Rx Instructions: administer into each nostril epinephrine [EpiPen] 0.3 mg/0.3 mL auto-injector 0.3 mg IM Q10M PRN (Reason: anaphylaxis) Qty: 1 2RF Rx Instructions: for 2 doses DOK 100 mg capsule 100 mg PO BID PRN (Reason: Constipation) ondansetron 4 mg tablet,disintegrating 4 mg PO TID Qty: 30 2RF Rx Instructions: Mild nausea lorazepam 0.5 mg tablet 0.5 mg PO Q6H PRN (Reason: anxiety) Qty: 30 0RF Rx Instructions: For severe nausea ferrous gluconate 324 mg (37.5 mg iron) Tablet 324 mg PO BIDWM Qty: 60 0RF cyanocobalamin (vitamin B-12) 1,000 mcg capsule 1,000 mcg PO DAILY Qty: 30 0RF cetirizine 10 mg Tablet 10 mg PO DAILY Patient Instructions: Opioid Safety Discharge Attestations Time Spent in Discharge Care*: greater than 30 min Status at Discharge: Cognitive status at discharge: cognitively intact , Behavioral status at discharge: can be uncooperative , Quality Metrics Clinical Quality Measures [ No reported AMI, CVA or VTE this stay] Coding Level of Care Code Acute Code for Chg Fwd Diagnoses UTI (urinary tract infection) N39.0 Anemia D64.9 Bladder cancer C67.9 Lumbar radiculopathy, chronic M54.16 Anxiety, generalized F41.1 Hypertension I10 Hypertension type: essential hypertension Pyelonephritis N12
== END 2022-09-07 11:34 | disposition left against medical advice (07) ==
LOC: ER 18:56 → MEDSURG 19:25
PROVIDERS: Admitting Provider Internal Medicine; Emergency Provider Emergency Medicine; Visit Provider Internal Medicine
DX: N12 Tubulo-interstitial nephritis, not specified as acute or chronic (principal); N39.0 Urinary tract infection, site not specified; Z79.82 Long term (current) use of aspirin; Z79.891 Long term (current) use of opiate analgesic; J44.9 Chronic obstructive pulmonary disease, unspecified; Z95.828 Presence of other vascular implants and grafts; I10 Essential (primary) hypertension; I25.10 Atherosclerotic heart disease of native coronary artery without angina pectoris; F17.200 Nicotine dependence, unspecified, uncomplicated; D50.9 Iron deficiency anemia, unspecified; C67.9 Malignant neoplasm of bladder, unspecified; E87.6 Hypokalemia; Z53.29 Procedure and treatment not carried out because of patient's decision for other reasons; F41.1 Generalized anxiety disorder; Z23 Encounter for immunization
CPT/HCPCS: 36415; 71045; 74176; 80048; 80053; 81001; 81003; 82607; 82784; 83605; 83735; 84100; 84443; 85025; 86140; 86705; 86706; 86709; 86803; 87040; 87077; 87086; 87186; 87340; 90471; 90732; 96365; 96372; 96375; 96376; 99215; 99285; G0378; J0744; J1170; J1642; J1644; J1940; J2185; J2270; J2405; J2543; J2765; J3480; J7030; J7050

== ENCOUNTER 2022-09-09 10:37 | Oncology outpatient (recurring) (ONCR) | payer MEDICAID, SELFPAY ==
[2022-08-29 14:09] LABS: Basophils # 0.1 10^3/uL (0.0-0.1); Basophils % 1.2 %; Eosinophils # 0.2 10^3/uL (0.0-0.8); Eosinophils % 2.6 %; Hemoglobin 7.7 g/dL (11.5-15.3); Lymphocytes # 1.2 10^3/uL (0.8-4.8); Lymphocytes % 14.4 %; Mean Corpuscular HGB Conc 26.6 g/dL (30.0-36.0); Mean Corpuscular Hemoglobin 19.9 pg (28.0-34.0); Mean Corpuscular Volume 75.1 fl (81-99); Mean Platelet Volume 8.9 fL (7.4-10.4); Monocytes # 0.6 10^3/uL (0.2-0.9); Monocytes % 6.5 %; Neutrophils # 6.36 10^3/uL (1.8-7.7); Neutrophils % 74.8 %; Nucleated Red Blood Cells % 0 %; Platelet Count 538 10^3/cmm (130-400); Red Blood Count 3.86 10^6/uL (4.1-5.3); Red Cell Distribution Width 18.4 % (12.1-15.1); White Blood Count 8.5 10^3/uL (4.0-10.0)
[2022-09-05 09:20] VITALS: BP 137/79; PULSE 114; RESP 18; TEMP 36.5; O2SAT 95
[2022-09-05 09:38] LABS: Basophils # 0.1 10^3/uL (0.0-0.1); Basophils % 0.5 %; Hemoglobin 10.3 g/dL (11.5-15.3); Lymphocytes # 0.6 10^3/uL (0.8-4.8); Lymphocytes % 5.7 %; Mean Corpuscular HGB Conc 28.6 g/dL (30.0-36.0); Mean Corpuscular Hemoglobin 22.5 pg (28.0-34.0); Mean Corpuscular Volume 78.6 fl (81-99); Mean Platelet Volume 8.7 fL (7.4-10.4); Monocytes # 1.2 10^3/uL (0.2-0.9); Monocytes % 10.5 %; Neutrophils # 9.09 10^3/uL (1.8-7.7); Neutrophils % 82.8 %; Nucleated Red Blood Cells % 0 %; Platelet Count 371 10^3/cmm (130-400); Red Blood Count 4.58 10^6/uL (4.1-5.3); Red Cell Distribution Width 20.7 % (12.1-15.1)
[2022-09-05 10:04] LABS: Alanine Aminotransferase < 5 U/L (0-33); Albumin Level 3.1 g/dL (3.5-5.2); Alkaline Phosphatase 119 U/L (35-105); Anion Gap 15.2 (5-19); Aspartate Amino Transferase 9 U/L (0-32); Blood Urea Nitrogen 11 mg/dL (8-23); Calcium 8.8 mg/dL (8.5-10.5); Carbon Dioxide 25 mmol/L (22-29); Chloride 98 mmol/L (98-107); Globulin 3.5 g/dL (1.3-4.6); Glomerular Filtration Rate 72.9 mL/min (90-130); Glucose 153 mg/dL (65-115); Immunoglobulin IGG 961 mg/dL (700-1600); Osmolality Calculated 282 mOsm/kg (285-295); Potassium 3.2 mmol/L (3.5-5.1); Sodium 135 mmol/L (136-145); Thyroid Stimulating Hormone 0.75 uIU/mL (0.27-4.20); Total Bilirubin 0.3 mg/dL (0.15-1.2); Total Protein 6.6 g/dL (6.6-8.7)
[2022-09-05 10:47] LABS: Hepatitis A Antibody IgM Non-Reactive (Nonreactive); Hepatitis B Core AB, Total Non-Reactive (Nonreactive); Hepatitis B Surface Antigen Non-Reactive (Nonreactive); Hepatitis C Virus Antibody Non-Reactive (Nonreactive)
[2022-09-05 10:49] LABS: Hepatitis B Surface AB < 3.5 (11.5-1000)
[2022-09-05] MEDS: morphine 4 mg/mL SDV 1 mL 1 MG IVP (11:46)
[2022-09-05] MEDS: ondansetron 2 mg/ML SDV 2 mL 8 MG IVP (12:58)
[2022-09-05] MEDS: sodium chloride 0.9% 250 ML IV (12:58)
[2022-09-05] MEDS: HYDROmorphone 1 mg/mL INJ 1 mL IVP (13:02)
[2022-09-05] MEDS: potassium chloride premix 100 ML 50 MEQ IV (13:06)
[2022-09-05 14:51] LABS: Urine Appearance Cloudy (CLEAR); Urine Color Yellow (Yellow)
[2022-09-05 14:52] LABS: Add Urine Microscopic? YES; Bacteria Urine TRACE /hpf; Bilirubin Urine Neg (Negative); Blood Urine 3+ (Negative); Glucose Urine UA Norm (Normal); Ketones Urine Negative (Negative); Leukocyte Esterase Urine 2+ (Negative); Mucus Urine TRACE /hpf; Nitrate Urine Negative (Negative); Protein Urine 1+ (Negative); RBC Urine 40-50 /hpf (0-2); Specific Gravity, Urine 1.015 (1.005-1.030); Squamous Epithelial Cell Urine 0-4 /hpf (0-5); Urobilinogen Urine Norm (Negative); pH Urine 5 (5-7)
[2022-09-05 14:53] LABS: Add Urine Culture? Yes; WBC Urine >100 /hpf (0-5)
[2022-09-05 15:15] VITALS: BP 130/73; PULSE 114; TEMP 38.9; O2SAT 93
[2022-09-09 10:47] VITALS: BP 136/71; PULSE 99; RESP 16; TEMP 36.9; O2SAT 90
[2022-09-09 11:08] LABS: Basophils # 0.1 10^3/uL (0.0-0.1); Basophils % 0.5 %; Eosinophils # 0.3 10^3/uL (0.0-0.8); Eosinophils % 2.8 %; Hematocrit 33.1 % (37.0-47.0); Hemoglobin 9.4 g/dL (11.5-15.3); Lymphocytes # 1.3 10^3/uL (0.8-4.8); Lymphocytes % 13.2 %; Mean Corpuscular HGB Conc 28.4 g/dL (30.0-36.0); Mean Corpuscular Hemoglobin 22.5 pg (28.0-34.0); Mean Corpuscular Volume 79.2 fl (81-99); Monocytes # 0.6 10^3/uL (0.2-0.9); Monocytes % 5.9 %; Neutrophils # 7.31 10^3/uL (1.8-7.7); Nucleated Red Blood Cells % 0 %; Platelet Count 432 10^3/cmm (130-400); Red Blood Count 4.18 10^6/uL (4.1-5.3); Red Cell Distribution Width 19.9 % (12.1-15.1); White Blood Count 9.5 10^3/uL (4.0-10.0)
[2022-09-09 11:21] LABS: Alanine Aminotransferase 8 U/L (0-33); Albumin Level 3.2 g/dL (3.5-5.2); Alkaline Phosphatase 139 U/L (35-105); Anion Gap 15.5 (5-19); Aspartate Amino Transferase 11 U/L (0-32); Blood Urea Nitrogen 11 mg/dL (8-23); Calcium 8.9 mg/dL (8.5-10.5); Carbon Dioxide 30 mmol/L (22-29); Chloride 92 mmol/L (98-107); Globulin 3.5 g/dL (1.3-4.6); Glomerular Filtration Rate 56.4 mL/min (90-130); Glucose 126 mg/dL (65-115); Osmolality Calculated 279 mOsm/kg (285-295); Potassium 3.5 mmol/L (3.5-5.1); Sodium 134 mmol/L (136-145); Total Bilirubin 0.2 mg/dL (0.15-1.2); Total Protein 6.7 g/dL (6.6-8.7)
[2022-09-09 12:13] VITALS: BP 141/68; PULSE 105; TEMP 37; O2SAT 95
[2022-09-09 12:24] LABS: Urine Appearance Cloudy (CLEAR); Urine Color Yellow (Yellow)
[2022-09-09 12:25] LABS: Add Urine Microscopic? YES; Bilirubin Urine Neg (Negative); Blood Urine 3+ (Negative); Glucose Urine UA Norm (Normal); Ketones Urine Negative (Negative); Leukocyte Esterase Urine 2+ (Negative); Nitrate Urine Negative (Negative); Protein Urine 1+ (Negative); Urobilinogen Urine Norm (Negative); pH Urine 5 (5-7)
[2022-09-09 12:26] LABS: Add Urine Culture? Yes; Bacteria Urine 1+ /hpf; RBC Urine 15-25 /hpf (0-2); Squamous Epithelial Cell Urine 0-4 /hpf (0-5); WBC Urine >100 /hpf (0-5)
[2022-09-09] MEDS: sodium chloride 0.9% 250 ML 100 ML IV (14:47)
[2022-09-09] MEDS: palonosetron 0.25 mg/5 mL SDV IVP (14:47)
[2022-09-09] MEDS: pembrolizumab 200 MG in sodium chloride 0.9% 250 ML 516 MG IV (15:18)
[2022-09-09] MEDS: CARBOplatin 140 MG in sodium chloride 0.9% 500 ML 514 MG IV (16:27)
[2022-09-09 17:44] VITALS: BP 140/75; PULSE 97; TEMP 36.4; O2SAT 92
[2022-09-10 06:27] LABS: Iron 28 ug/dL (37-145); Percent Saturation 11.3 % (20-50); Total Iron Binding Capacity 247 mcg/dl; Unsaturated Iron Binding 219 ug/dL (112-347)
== END 2022-09-09 23:59 | disposition home or self-care (01) ==
PROVIDERS: Internal Medicine Medical Oncology; Nurse Practitioner Family; Visit Provider Internal Medicine Hematology & Oncology
DX: C67.9 Malignant neoplasm of bladder, unspecified (principal); Z51.11 Encounter for antineoplastic chemotherapy; Z51.12 Encounter for antineoplastic immunotherapy; C67.8 Malignant neoplasm of overlapping sites of bladder
CPT/HCPCS: 96375; 96365; 96366; 96361; 80053; 81001; 82784; 83540; 83550; 84443; 85025; 86705; 86706; 86709; 86803; 86850; 86900; 87077; 87086; 87186; 87340; 96367; 96413; 96417; 99214; J1100; J1170; J1642; J2270; J2405; J2469; J3480; J7040; J7050; J9045; J9201; J9271

== ENCOUNTER 2022-10-01 09:32 | Oncology outpatient (recurring) (ONCR) | payer MEDICAID, SELFPAY ==
[2022-10-01 09:38] VITALS: BP 142/71; PULSE 112; RESP 18; TEMP 37.5; O2SAT 94
[2022-10-01 09:54] LABS: Basophils # 0.1 10^3/uL (0.0-0.1); Basophils % 0.9 %; Eosinophils # 0.1 10^3/uL (0.0-0.8); Eosinophils % 0.9 %; Hematocrit 30.8 % (37.0-47.0); Hemoglobin 8.8 g/dL (11.5-15.3); Lymphocytes # 1.5 10^3/uL (0.8-4.8); Mean Corpuscular HGB Conc 28.6 g/dL (30.0-36.0); Mean Corpuscular Hemoglobin 23.2 pg (28.0-34.0); Mean Corpuscular Volume 81.1 fl (81-99); Mean Platelet Volume 8.6 fL (7.4-10.4); Monocytes # 1.2 10^3/uL (0.2-0.9); Monocytes % 12.6 %; Neutrophils # 6.33 10^3/uL (1.8-7.7); Neutrophils % 69.1 %; Nucleated Red Blood Cells % 0 %; Platelet Count 469 10^3/cmm (130-400); Red Cell Distribution Width 21.8 % (12.1-15.1); White Blood Count 9.2 10^3/uL (4.0-10.0)
[2022-10-01 10:21] LABS: Alanine Aminotransferase 6 U/L (0-33); Albumin Level 2.9 g/dL (3.5-5.2); Alkaline Phosphatase 135 U/L (35-105); Anion Gap 14.4 (5-19); Aspartate Amino Transferase 8 U/L (0-32); Blood Urea Nitrogen 8 mg/dL (8-23); Calcium 8.6 mg/dL (8.5-10.5); Carbon Dioxide 28 mmol/L (22-29); Chloride 96 mmol/L (98-107); Globulin 3.8 g/dL (1.3-4.6); Glomerular Filtration Rate 101.6 mL/min (90-130); Glucose 104 mg/dL (65-115); Osmolality Calculated 277 mOsm/kg (285-295); Potassium 4.4 mmol/L (3.5-5.1); Sodium 134 mmol/L (136-145); Thyroid Stimulating Hormone 1.98 uIU/mL (0.27-4.20); Total Bilirubin 0.2 mg/dL (0.15-1.2); Total Protein 6.7 g/dL (6.6-8.7)
[2022-10-01] MEDS: sodium chloride 0.9% 250 ML 75 ML IV (11:58)
[2022-10-01] MEDS: palonosetron 0.25 mg/5 mL SDV IVP (11:59)
[2022-10-01 12:10] VITALS: BP 128/57; PULSE 107; RESP 18; TEMP 37.5; O2SAT 93
[2022-10-01] MEDS: pembrolizumab 200 MG in sodium chloride 0.9% 250 ML 516 MG IV (12:43)
[2022-10-01] MEDS: gemcitabine 1,400 MG in sodium chloride 0.9% (100 ml) 100 ML 200 MG IV (13:22)
[2022-10-01] MEDS: CARBOplatin 190 MG in sodium chloride 0.9% 500 ML 519 MG IV (14:04)
[2022-10-01 17:00] VITALS: BP 140/74; PULSE 104; TEMP 37; O2SAT 94
== END 2022-10-01 23:59 | disposition home or self-care (01) ==
PROVIDERS: Internal Medicine Medical Oncology; Visit Provider Internal Medicine Hematology & Oncology
DX: C67.8 Malignant neoplasm of overlapping sites of bladder (principal); C77.8 Secondary and unspecified malignant neoplasm of lymph nodes of multiple regions; C78.01 Secondary malignant neoplasm of right lung; C78.02 Secondary malignant neoplasm of left lung; I31.39 Other pericardial effusion (noninflammatory); N26.1 Atrophy of kidney (terminal); Z79.891 Long term (current) use of opiate analgesic; Z79.899 Other long term (current) drug therapy; Z95.828 Presence of other vascular implants and grafts
CPT/HCPCS: 80053; 84443; 85025; 96361; 96367; 96375; 96413; 96415; 96417; 99214; J1100; J1642; J2469; J7040; J7050; J9045; J9201; J9271

== ENCOUNTER 2022-10-08 09:07 | Oncology outpatient (recurring) (ONCR) | payer MEDICAID, SELFPAY ==
[2022-10-08 09:16] VITALS: BP 127/80; PULSE 110; RESP 18; TEMP 36.3; O2SAT 93; BMI 18.3
[2022-10-08 09:34] LABS: Basophils % 0.5 %; Eosinophils % 0.3 %; Hematocrit 29.9 % (37.0-47.0); Hemoglobin 8.8 g/dL (11.5-15.3); Lymphocytes # 0.8 10^3/uL (0.8-4.8); Lymphocytes % 19.6 %; Mean Corpuscular HGB Conc 29.4 g/dL (30.0-36.0); Mean Corpuscular Hemoglobin 23.9 pg (28.0-34.0); Mean Corpuscular Volume 81.3 fl (81-99); Mean Platelet Volume 8.3 fL (7.4-10.4); Monocytes # 0.4 10^3/uL (0.2-0.9); Monocytes % 8.9 %; Neutrophils # 2.76 10^3/uL (1.8-7.7); Neutrophils % 70.2 %; Nucleated Red Blood Cells % 0 %; Platelet Count 152 10^3/cmm (130-400); Red Blood Count 3.68 10^6/uL (4.1-5.3); Red Cell Distribution Width 20.4 % (12.1-15.1); White Blood Count 3.9 10^3/uL (4.0-10.0)
[2022-10-08 10:12] LABS: Alanine Aminotransferase 12 U/L (0-33); Albumin Level 3.2 g/dL (3.5-5.2); Alkaline Phosphatase 159 U/L (35-105); Anion Gap 13.6 (5-19); Aspartate Amino Transferase 17 U/L (0-32); Blood Urea Nitrogen 7 mg/dL (8-23); Calcium 8.8 mg/dL (8.5-10.5); Carbon Dioxide 28 mmol/L (22-29); Chloride 98 mmol/L (98-107); Globulin 3.3 g/dL (1.3-4.6); Glomerular Filtration Rate 101.6 mL/min (90-130); Glucose 117 mg/dL (65-115); Osmolality Calculated 281 mOsm/kg (285-295); Potassium 3.6 mmol/L (3.5-5.1); Sodium 136 mmol/L (136-145); Total Bilirubin 0.3 mg/dL (0.15-1.2); Total Protein 6.5 g/dL (6.6-8.7)
[2022-10-08] MEDS: sodium chloride 0.9% 250 ML 75 ML IV (12:10)
[2022-10-08] MEDS: palonosetron 0.25 mg/5 mL SDV IVP (12:11)
[2022-10-08] MEDS: gemcitabine 1,400 MG in sodium chloride 0.9% (100 ml) 100 ML 200 MG IV (13:07)
[2022-10-08] MEDS: CARBOplatin 190 MG in sodium chloride 0.9% 500 ML 519 MG IV (14:03)
[2022-10-08 16:08] VITALS: BP 160/83; PULSE 111; RESP 18; TEMP 36.2; O2SAT 93
== END 2022-10-14 23:59 | disposition home or self-care (01) ==
PROVIDERS: Visit Provider Internal Medicine Hematology & Oncology
DX: C67.8 Malignant neoplasm of overlapping sites of bladder (principal); Z53.9 Procedure and treatment not carried out, unspecified reason; Z51.11 Encounter for antineoplastic chemotherapy; C77.8 Secondary and unspecified malignant neoplasm of lymph nodes of multiple regions; C78.01 Secondary malignant neoplasm of right lung; F17.210 Nicotine dependence, cigarettes, uncomplicated; R11.0 Nausea; H53.8 Other visual disturbances; H93.11 Tinnitus, right ear; Z79.899 Other long term (current) drug therapy; Z59.82 Transportation insecurity
CPT/HCPCS: 80053; 85025; 96367; 96375; 96413; 96417; 99214; J1100; J1642; J2469; J7040; J7050; J9045; J9201

== ENCOUNTER 2022-11-14 10:10 | Oncology outpatient (recurring) (ONCR) | payer MEDICAID, SELFPAY ==
[2022-10-22 08:15] VITALS: BP 127/74; PULSE 117; RESP 18; TEMP 36.7; O2SAT 93
[2022-10-22 08:20] VITALS: BMI 18.1
[2022-10-22 08:50] LABS: Basophils % 0.4 %; Eosinophils # 0.1 10^3/uL (0.0-0.8); Eosinophils % 1.3 %; Hematocrit 29.5 % (37.0-47.0); Hemoglobin 8.7 g/dL (11.5-15.3); Lymphocytes # 0.8 10^3/uL (0.8-4.8); Lymphocytes % 16.5 %; Mean Corpuscular HGB Conc 29.5 g/dL (30.0-36.0); Mean Corpuscular Hemoglobin 25.4 pg (28.0-34.0); Mean Platelet Volume 10.3 fL (7.4-10.4); Monocytes # 0.8 10^3/uL (0.2-0.9); Neutrophils # 2.97 10^3/uL (1.8-7.7); Neutrophils % 64.6 %; Nucleated Red Blood Cells % 0 %; Platelet Count 335 10^3/cmm (130-400); Red Blood Count 3.43 10^6/uL (4.1-5.3); Red Cell Distribution Width 23.4 % (12.1-15.1); White Blood Count 4.6 10^3/uL (4.0-10.0)
[2022-10-22 09:04] LABS: Alanine Aminotransferase 6 U/L (0-33); Alkaline Phosphatase 139 U/L (35-105); Anion Gap 15.5 (5-19); Aspartate Amino Transferase 17 U/L (0-32); Blood Urea Nitrogen 8 mg/dL (8-23); Calcium 8.7 mg/dL (8.5-10.5); Carbon Dioxide 28 mmol/L (22-29); Chloride 98 mmol/L (98-107); Globulin 3.9 g/dL (1.3-4.6); Glomerular Filtration Rate 101.6 mL/min (90-130); Glucose 117 mg/dL (65-115); Osmolality Calculated 285 mOsm/kg (285-295); Potassium 3.5 mmol/L (3.5-5.1); Sodium 138 mmol/L (136-145); Thyroid Stimulating Hormone 1.96 uIU/mL (0.27-4.20); Total Bilirubin 0.2 mg/dL (0.15-1.2); Total Protein 6.9 g/dL (6.6-8.7)
[2022-10-22] MEDS: sodium chloride 0.9% 250 ML 50 ML IV (12:39)
[2022-10-22] MEDS: palonosetron 0.25 mg/5 mL SDV IVP (12:45)
[2022-10-22 12:49] LABS: Add Urine Microscopic? YES; Bacteria Urine 1+ /hpf; Bilirubin Urine Neg (Negative); Blood Urine 2+ (Negative); Glucose Urine UA Norm (Normal); Ketones Urine 1+ (Negative); Leukocyte Esterase Urine 2+ (Negative); Nitrate Urine Negative (Negative); Protein Urine Trace (Negative); RBC Urine 0-4 /hpf (0-2); Squamous Epithelial Cell Urine 0-4 /hpf (0-5); Urine Appearance Hazy (CLEAR); Urine Color Yellow (Yellow); Urobilinogen Urine Norm (Negative); WBC Urine 80-100 /hpf (0-5); pH Urine 6 (5-7)
[2022-10-22 12:56] VITALS: BP 122/71; PULSE 109; RESP 18; TEMP 36.4; O2SAT 99
[2022-10-22] MEDS: gemcitabine 1,400 MG in sodium chloride 0.9% (100 ml) 100 ML 273.64 MG IV (13:24)
[2022-10-22] MEDS: CARBOplatin 190 MG in sodium chloride 0.9% 500 ML 519 MG IV (14:15)
[2022-10-22] MEDS: albuterol 2.5 mg/3 mL Neb INHALATION (15:50)
[2022-10-22 16:30] VITALS: BP 131/71; PULSE 109; RESP 20; TEMP 36.8; O2SAT 96
[2022-10-31 10:42] VITALS: BP 108/68; PULSE 116; RESP 18; TEMP 36.9; O2SAT 90; BMI 17.4
[2022-10-31 10:57] LABS: Basophils % 0.2 %; Eosinophils % 0.1 %; Hematocrit 28.3 % (37.0-47.0); Hemoglobin 8.5 g/dL (11.5-15.3); Lymphocytes # 1.1 10^3/uL (0.8-4.8); Lymphocytes % 12.4 %; Mean Corpuscular Hemoglobin 25.8 pg (28.0-34.0); Mean Corpuscular Volume 85.8 fl (81-99); Mean Platelet Volume 9.4 fL (7.4-10.4); Monocytes # 1.2 10^3/uL (0.2-0.9); Monocytes % 14.4 %; Neutrophils # 6.15 10^3/uL (1.8-7.7); Neutrophils % 72.4 %; Nucleated Red Blood Cells % 0 %; Platelet Count 185 10^3/cmm (130-400); Red Cell Distribution Width 23.9 % (12.1-15.1); White Blood Count 8.5 10^3/uL (4.0-10.0)
[2022-10-31 11:25] LABS: Alanine Aminotransferase 7 U/L (0-33); Albumin Level 3.2 g/dL (3.5-5.2); Alkaline Phosphatase 130 U/L (35-105); Anion Gap 14.3 (5-19); Aspartate Amino Transferase 9 U/L (0-32); Blood Urea Nitrogen 10 mg/dL (8-23); Calcium 8.7 mg/dL (8.5-10.5); Carbon Dioxide 27 mmol/L (22-29); Chloride 98 mmol/L (98-107); Globulin 3.9 g/dL (1.3-4.6); Glomerular Filtration Rate 101.6 mL/min (90-130); Glucose 116 mg/dL (65-115); Osmolality Calculated 282 mOsm/kg (285-295); Potassium 3.3 mmol/L (3.5-5.1); Sodium 136 mmol/L (136-145); Total Bilirubin 0.2 mg/dL (0.15-1.2); Total Protein 7.1 g/dL (6.6-8.7)
[2022-10-31] MEDS: sodium chloride 0.9% 250 ML 75 ML IV (13:07)
[2022-10-31] MEDS: palonosetron 0.25 mg/5 mL SDV IVP (13:14)
[2022-10-31 13:22] VITALS: BP 124/74; PULSE 102; RESP 17; TEMP 37.6; O2SAT 95
[2022-10-31] MEDS: gemcitabine 1,400 MG in sodium chloride 0.9% (100 ml) 100 ML 273.64 MG IV (13:48)
[2022-10-31] MEDS: CARBOplatin 190 MG in sodium chloride 0.9% 500 ML 519 MG IV (14:24)
[2022-10-31 16:00] VITALS: BP 142/65; PULSE 110; RESP 19; TEMP 37.5; O2SAT 95
[2022-11-12 09:18] VITALS: BMI 17.5
[2022-11-12 09:22] VITALS: BP 149/82; PULSE 115; RESP 18; TEMP 36.6; O2SAT 98
[2022-11-12 09:27] VITALS: BMI 17.5
[2022-11-12 09:39] LABS: Basophils % 0.3 %; Eosinophils # 0.1 10^3/uL (0.0-0.8); Eosinophils % 1.2 %; Hematocrit 26.7 % (36-47); Lymphocytes # 0.8 10^3/uL (0.8-4.8); Lymphocytes % 12.2 %; Mean Corpuscular HGB Conc 30.3 g/dL (30-55); Mean Corpuscular Hemoglobin 27.6 pg (27-33); Mean Corpuscular Volume 90.8 fl (85-98); Mean Platelet Volume 11.1 fL (7.4-10.4); Monocytes % 15.7 %; Neutrophils # 4.52 10^3/uL (1.8-7.7); Neutrophils % 70.1 %; Nucleated Red Blood Cells % 0 %; Platelet Count 150 10^3/cmm (157-399); Red Blood Count 2.94 10^6/uL (3.85-5.65); Red Cell Distribution Width 26.5 % (12.1-15.1); White Blood Count 6.45 10^3/uL (3.29-11.43)
[2022-11-12 09:56] LABS: Alanine Aminotransferase 6 U/L (0-33); Albumin Level 3.4 g/dL (3.5-5.2); Alkaline Phosphatase 125 U/L (35-105); Anion Gap 17.1 (5-19); Aspartate Amino Transferase 11 U/L (0-32); Blood Urea Nitrogen 11 mg/dL (8-23); Calcium 8.9 mg/dL (8.5-10.5); Carbon Dioxide 24 mmol/L (22-29); Chloride 98 mmol/L (98-107); Creatinine Clr Calc Pharmacy 60.6929; Glomerular Filtration Rate 85.1 mL/min (90-130); Glucose 152 mg/dL (65-115); Osmolality Calculated 284 mOsm/kg (285-295); Potassium 3.1 mmol/L (3.5-5.1); Sodium 136 mmol/L (136-145); Total Bilirubin 0.2 mg/dL (0.15-1.2); Total Protein 7.4 g/dL (6.6-8.7)
[2022-11-14 10:47] VITALS: BP 157/82; PULSE 107; RESP 17; TEMP 36.9; O2SAT 93; BMI 17.4
[2022-11-14] MEDS: sodium chloride 0.9% 250 ML 75 ML IV (12:08)
[2022-11-14] MEDS: palonosetron 0.25 mg/5 mL SDV IVP (12:09)
[2022-11-14] MEDS: CARBOplatin 160 MG in sodium chloride 0.9% 500 ML 516 MG IV (13:22)
[2022-11-14 15:00] VITALS: BP 139/64; PULSE 107; RESP 17; TEMP 36.3; O2SAT 94
== END 2022-11-14 23:59 | disposition home or self-care (01) ==
PROVIDERS: Visit Provider Internal Medicine Medical Oncology
DX: C67.8 Malignant neoplasm of overlapping sites of bladder (principal); Z51.11 Encounter for antineoplastic chemotherapy
CPT/HCPCS: 80053; 81001; 84443; 85025; 96367; 96375; 96413; 96417; 99214; 99215; J1100; J1642; J2469; J7040; J7050; J7613; J9045; J9201

== ENCOUNTER 2022-11-28 10:13 | Oncology outpatient (recurring) (ONCR) | payer MEDICAID, SELFPAY ==
[2022-11-28 10:30] VITALS: BP 114/75; PULSE 112; RESP 16; TEMP 37.1; O2SAT 95
[2022-11-28 10:49] LABS: Basophils % 0.4 %; Eosinophils # 0.1 10^3/uL (0.0-0.8); Eosinophils % 1.3 %; Hematocrit 28.6 % (36-47); Lymphocytes # 1.3 10^3/uL (0.8-4.8); Lymphocytes % 16.4 %; Mean Corpuscular HGB Conc 30.8 g/dL (30-55); Mean Corpuscular Hemoglobin 30.3 pg (27-33); Mean Corpuscular Volume 98.6 fl (85-98); Mean Platelet Volume 11.1 fL (7.4-10.4); Monocytes # 0.9 10^3/uL (0.2-0.9); Neutrophils # 5.43 10^3/uL (1.8-7.7); Neutrophils % 70.5 %; Nucleated Red Blood Cells % 0 %; Platelet Count 180 10^3/cmm (157-399)
[2022-11-28 11:01] LABS: Alanine Aminotransferase < 5 U/L (0-33); Albumin Level 3.3 g/dL (3.5-5.2); Alkaline Phosphatase 130 U/L (35-105); Anion Gap 14.4 (5-19); Aspartate Amino Transferase 9 U/L (0-32); Blood Urea Nitrogen 11 mg/dL (8-23); Calcium 8.9 mg/dL (8.5-10.5); Carbon Dioxide 27 mmol/L (22-29); Chloride 101 mmol/L (98-107); Globulin 3.7 g/dL (1.3-4.6); Glomerular Filtration Rate 85.1 mL/min (90-130); Glucose 121 mg/dL (65-115); Osmolality Calculated 289 mOsm/kg (285-295); Potassium 3.4 mmol/L (3.5-5.1); Sodium 139 mmol/L (136-145); Total Bilirubin 0.2 mg/dL (0.15-1.2)
[2022-11-28 13:28] VITALS: BP 157/72; PULSE 104; RESP 17; TEMP 36.9; O2SAT 95
[2022-11-28] MEDS: oxyCODONE 5 mg IR Tab/Cap PO (13:28)
[2022-11-28] MEDS: sodium chloride 0.9% 250 ML 75 ML IV (13:35)
[2022-11-28 13:38] VITALS: BMI 17.9
[2022-11-28] MEDS: palonosetron 0.25 mg/5 mL SDV IVP (13:45)
[2022-11-28] MEDS: CARBOplatin 160 MG in sodium chloride 0.9% 500 ML 516 MG IV (14:43)
[2022-11-28 15:50] VITALS: BP 167/77; PULSE 103; RESP 17; TEMP 36.6; O2SAT 92
== END 2022-12-14 23:59 | disposition home or self-care (01) ==
PROVIDERS: Visit Provider Internal Medicine Medical Oncology
DX: Z51.11 Encounter for antineoplastic chemotherapy (principal); C67.8 Malignant neoplasm of overlapping sites of bladder
CPT/HCPCS: 80053; 85025; 96367; 96375; 96413; 96417; J1100; J1642; J2469; J7040; J7050; J9045; J9201

== ENCOUNTER 2022-11-30 05:38 | Outpatient (CLI) | payer MEDICAID, SELFPAY ==
--- NOTE | 2022-11-30 10:00 | PETR_ITS ---
PROCEDURE INFORMATION: Exam: PET/CT Skull Base to Mid-thigh Exam date and time: 11/30/2022 10:54 AM Age: 62 years old Clinical indication: Restaging of metastatic bladder cancer; Primary cancer: Malignant neoplasm of bladder; Follow-up oncological assessment; Prior surgery; Surgery date: 1-6 months; Surgery type: Chest tube 04/2022. LABS AND CLINICAL REPORTS: Glucose: 83 mg/dl Treatment strategy for malignancy (PET staging): Restaging (PS) TECHNIQUE: Imaging protocol: Following at least four-hour fasting and following the injection of radiopharmaceutical, low dose CT images were obtained. Then, PET images were obtained. Attenuation corrected images were constructed using the CT scan. Fused images of PET and CT were reviewed. The standardized uptake values (SUV) reported below are maximum values within a region of interest, expressed in gm/ml. Exam includes orbital meatal line to mid-thigh. Radiopharmaceutical: 11.52 mCi F-18 FDG (Fluorodeoxyglucose), IV. Time of imaging post radiopharmaceutical administration: 1 hour Injection site: Right antecubital vein [id number] 08/24/2022 1:55 PM FINDINGS: Tubes, catheters and devices: Port catheter placed via the left subclavian vein terminates in the right atrium. Brain: Visualized brain has normal physiologic uptake. Pharynx: No abnormal uptake. Larynx: No abnormal uptake. Lungs, pleura and trachea: No abnormal uptake. Heart: Normal physiologic uptake. Moderate pericardial effusion increased in thickness from 1.3 cm to 2 cm with no abnormal pericardial uptake. Stable borderline size of the heart with dilatation of the left ventricle and the left atrium. Coronary artery calcification is present. Mediastinal space: See below in lymph nodes . Liver: No abnormal uptake. Gallbladder and bile ducts: No abnormal uptake. No calcified gallstones. Pancreas: No abnormal uptake. Spleen: No abnormal uptake. No splenomegaly. Adrenal glands: No abnormal uptake. No nodules. Kidneys and ureters: New mild left hydronephrosis and hydroureter. New slight right hydroureter with no right hydronephrosis. No focal FDG avid renal mass. Persistent parenchymal atrophy in the upper and lower poles of the right kidney Stomach and bowel: No abnormal uptake. Intraperitoneal and retroperitoneal spaces: No abnormal uptake. No ascites. Bladder: Normal physiologic uptake. Not shown in full distension. Reproductive: The area of abnormal uptake in the left aspect of the uterine body currently measures about 3 x 1.8 cm/10.1 SUV versus 4.3 x 4.1 cm/11.3 SUV on the prior exam suggestive of slight response. Vasculature: No abnormal uptake. There is stable nonruptured 4.1 cm infrarenal abdominal aortic aneurysm. Lymph nodes: There is decrease in uptake within the small volume mediastinal, bilateral hilar, retroperitoneal and bilateral pelvic lymphadenopathy with decrease in size of some nodes suggestive of partial response to treatment. Mildly enlarged right upper mediastinal lymph nodes measure up to 6.6 SUV versus 8.9 SUV on the prior exam. Right subcarinal lymph node measures 4.2 SUV, previously 8 SUV. Right posterior mediastinal paraesophageal lymph node on axial image 62 decreased in uptake from 4.2 SUV to 2 poor 4 SUV. The uptake in the left upper hilar lymph nodes decreased from 7.4 SUV to 5.9 SUV. Upper retroperitoneal metastatic lymph nodes measure up to 8.3 SUV, previously 7.9 SUV. Abnormal uptake previously present in the right retrocrural lymph node at L1 level has completely resolved. The highest uptake in bilateral pelvic lymph nodes decreased from 9 SUV to 5.6 SUV. The largest left external iliac lymph node on series 3, image 121 decreased in short axis from 1.9 cm to 1.5 cm. Superior rectal lymph node noted on image 117 of the prior exam decreased from 0.8 cm to 0.4 cm and completely resolved in abnormal uptake. No FDG avid lymphadenopathy in the head and neck, and extremities. Bones/joints: New FDG avid bone metastases. Left aspect of C7 vertebral body (axial image 28) measures 7.4 SUV. 1.6 cm sclerotic focus in the left aspect of L5 vertebral body on axial image 105 measures 7.7 SUV. About 2 cm elongated focus in the right iliac bone on axial image 110 measures 9.2 SUV. Long lesion involving the right ischial tuberosity and the right ischial ramus measures 9 SUV. Slightly increased uptake of 3.5 SUV in the body and the spinous process of C3 may be metastatic as well. Soft tissues: No abnormal uptake in the visualized head, neck, chest, abdomen, pelvis, and extremities. Stable breast implants in place. PET/PET skulltothigh SUBSEQ [id number] IMPRESSION: In comparison with 08/24/2022 there are mixed changes with overall stable burden of disease. Metastatic lymphadenopathy in the chest, retroperitoneum and the pelvis shows mild partial response currently with the highest uptake of 6.6 SUV versus 9 SUV on the prior exam. There is mild partial response within uterine metastasis. Unfortunately, there are new FDG avid bone metastases with the highest uptake of 9.2 SUV. There is new mild left hydronephrosis and hydroureter. Currently there is no right hydronephrosis with only mild hydroureter. Moderate right hydronephrosis noted on 09/06/2022 has resolved. Pericardial effusion increased from mild to moderate with no abnormal pericardial uptake.
== END 2022-11-30 05:39 | disposition home or self-care (01) ==
LOC: RAD 12-02 05:38
PROVIDERS: Visit Provider Nurse Practitioner Family
DX: C67.9 Malignant neoplasm of bladder, unspecified (principal); C79.51 Secondary malignant neoplasm of bone; N13.30 Unspecified hydronephrosis; N13.4 Hydroureter
CPT/HCPCS: 78815; A9552

== ENCOUNTER 2022-12-16 09:56 | Inpatient (IN) | payer MEDICAID, SELFPAY ==
[2022-12-16] VITALS (77 sets, daily range): BP systolic 50–196; BP diastolic 20–139; PULSE 71–137; RESP 16–30; TEMP 32.2–35.8; O2SAT 90–100; BMI 17.9
--- NOTE | 2022-12-16 09:59 | ECG_ITS ---
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 Measurements Intervals [place] Rate: 102 P: 67 ME: 138 QRS: 20 QRSD: 97 T: 101 QT: 331 QTc: 432 Interpretive Statements SINUS TACHYCARDIA POSSIBLE LEFT ATRIAL ENLARGEMENT [-0.1mV P-WAVE IN V1/V2] POSSIBLE INFERIOR MYOCARDIAL INFARCTION , PROBABLY OLD [30 ms Q WAVE IN II/aVF] Compared to ECG 08/29/2022 21:55:15 Myocardial infarct finding now present Short ME interval no longer present Intraventricular conduction delay no longer present T-wave abnormality no longer present Electronically Signed On 12-16-2022 14:26:35 CDT by Jose Jeff M.D. [email or web address]
--- NOTE | 2022-12-16 10:01 | XR_ITS ---
WS: [id number] EXAMINATION: XR chest 1V portable [id number] REASON FOR EXAM: SOB COMPARISON: 09/05/2022 ORDER DATE: 12/16/2022 10:04 AM TECHNIQUE: A single, portable frontal chest x-ray was obtained. X-RAY FINDINGS/IMPRESSION: Left subclavian [id number] with tip in the Area of the cavoatrial junction. Mild cardiomegaly. Consolidative change demonstrated in the left base obscuring the left diaphragm ou tline possibly combination of atelectasis/infiltrate and effusion recommend the lateral view when fea sible for further assessment
[2022-12-16 10:14] LABS: ABG PH Result 7.25 (7.35-7.45); Alveolar-Arterial Oxygen Gradi 9.2 mmHg (5-10); Arterial Blood Gas Hematocrit 22.2 % (37-47); Base Excess ABG -17.4 mmol/L (-2.0-2.0); Blood Gas Allen Test Pos; Blood Gas Operator Identificat CAK; Blood Gas Sample Site Brachial, left; Blood Gas Sample Type Arterial; Carboxyhemoglobin 1.9 %THgb (0.4-20.1); HCO3 ABG 8.3 mmol/L (22-26); HGB O2 Sat 94.7 % (95-100); Ionized Calcium Level - ABG 1.1 mmol/L (1.1-1.4); Methemoglobin 0.8 % (0.4-1.5); Oxygen Device NC; Oxygen Saturation ABG 97.3; Potassium Level - ABG 5.3 mmol/L (3.5-5.0); Total Hemoglobin 7.2 g/dL (12-16)
--- NOTE | 2022-12-16 10:25 | ED_ITS ---
HPI - SOB/Dyspnea General: Chief Complaint: Shortness of Breath/Dyspnea Stated Complaint: sob Time Seen by Provider: 12/16/22 09:56 Source: patient Mode of arrival: ambulatory History of Present Illness: HPI Narrative: 62-year-old male presents emergency room with increased shortness of breath and work of breathing. She was found by EMS they reported she was hypotensive and hypoxic she was started epi drip. On arrival here she is on 10 L by mask this is decreased to 2 L by nasal cannula and she is maintaining sats in the upper 90s or blood pressure is 116/73 with a MAP of 87 without the epi was stopped after she arrived here. She was recently diagnosed with bladder cancer got treatments last week. No chest pain she does have some pelvic and back discomfort. States that this shortness of breath is worse when she lays flat better when she is sitting up. Patient is a lifelong smoker. MD elicited complaint: shortness of breath and cough Pertinent past history: COPD Onset (ago): hour(s) Timing: constant Severity: mild Exacerbating factors: nothing Relieving factors: nothing Known history of: COPD Associated symptoms: Reports abdominal pain and chest congestion; Deny chest pain, cough, diaphoresis, dizziness, extremity pain, fever(s), hemoptysis, lightheadedness, myalgias, nausea, orthopnea, palpitations, paresthesias, polydipsia, polyuria, rash, sense of impending doom, syncope or vomiting Treatment prior to arrival: none Review of Systems Const: Reports: fatigue and malaise; Denies: fever(s), chills or diaphoresis ENMT: Denies: throat pain, ear or mastoid pain, nasal discharge or nasal reuben estion Card: Denies: chest pain, palpitations, lightheadedness, syncope or orthopnea Resp: Reports: dyspnea, non-productive cough, wheezing and chest congestion; Denies: hemoptysis GI: Reports: abdominal pain; Denies: nausea or vomiting : Denies: flank pain, difficulty voiding, dysuria, urinary frequency or urinary urgency Musc: Denies: extremity pain Skin/Breast: Denies: rash or pruritus Neuro: Denies: dizziness Endo: Denies: polyuria or polydipsia PFS ED PFSH: Medical History Allergy to iodine Anemia Anxiety, generalized Bladder cancer CAD (coronary artery disease) Chronic post-traumatic stress disorder (PTSD) COPD (chronic obstructive pulmonary disease) Hypertension Lumbar radiculopathy, chronic Metastatic urothelial carcinoma Pericardial effusion without cardiac tamponade Port-A-Cath in place Post herpetic neuralgia Pyelonephritis Urinary tract infection UTI (urinary tract infection) Vitamin D insufficiency Surgical History History of abdominoplasty History of bladder surgery History of breast augmentation Saline History of heart artery stent 2 stents September 2013 History of tubal ligation Family History Sister Diabetes Brother Diabetes Denies family history of Bleeding disorder Social History Smoking and tobacco status: current every day smoker cigarettes Packs smoked per day: 1 Years cigarettes smoked: 45 Second hand smoke exposure: Yes Smoking risk assessment/counseling performed?: Yes Alcohol intake: unknown Desire information about alcohol rehabilitation?: No Counseling given: No Substance/Drug Use: unknown Desire information about substance/drug rehabilitation?: No Counseling given: No Adopted: No Caregiver/support person: No Lives independently: Yes Household members: spouse Marital status: Number of children: 5 service: No Do you think of yourself as: Straight/Heterosexual Current gender identity: Female Physical Exam Const: GENERAL APPEARANCE: cooperative and comfortable ORIENTATION/CONSCIOUSNESS: Yes awake, Yes oriented to person, Yes oriented to place and Yes oriented to time HENMT: COMMON NORMALS: normocephalic, atraumatic and hearing grossly normal bilaterally HEAD & SCALP: normocephalic and atraumatic Resp: COMMON NORMALS: normal respiratory effort, No retractions, No use of accessory muscles and clear to auscultation bilaterally AUSCULTATION: clear to auscultation bilaterally Cardio: COMMON NORMALS: regular rate, regular rhythm and No murmurs present (Cardio) RATE: regular rate RHYTHM: regular rhythm GI: COMMON NORMALS: No hepatosplenomegaly present AUSCULTATION: Yes normoactive bowel sounds PALPATION: Yes Tenderness to palpation present (GI) (Periumbilical/suprpubic), No Guarding due to palpation present (GI) and Yes No hepatosplenomegaly present : COMMON NORMALS: Yes no CVA tenderness BLADDER/KIDNEY EXAM: Yes no CVA tenderness Back/Pelvis: COMMON NORMALS: no CVA tenderness Extremity: COMMON NORMALS: normal to inspection, capillary refill normal, no clubbing, cyanosis or edema, no calf tenderness and no pedal edema Neuro: SENSORIUM/ORIENTATION: Yes oriented to person, Yes oriented to place and Yes oriented to time Skin: COMMON NORMALS: no rashes or lesions noted GENERAL SKIN EXAM: no rashes or lesions noted Course Vital Signs: Vital signs: Vital Signs Temperature 94.7 F L 12/16/22 14:02 Pulse Rate 89 12/16/22 13:11 Respiratory Rate 21 H 12/16/22 13:11 Blood Pressure 84/37 12/16/22 14:34 Pulse Oximetry 90 12/16/22 14:34 Oxygen Delivery Me thod Nasal Cannula 12/16/22 14:30 Oxygen Flow Rate 5 12/16/22 14:30 MDM - SOB/Dyspnea Medical Decision Making Patient presents in septic shock she did respond to fluid boluses chest x-ray shows left lower lobe pneumonia and pericardial effusion confirmed by CT and ultrasound. There is no obstruction of the ureters from the bladder tumor and there is a cystitis as well she has an acute kidney injury with hyperkalemia hyponatremia anemia and thrombocytopenia. Pericardial effusion shows tamponade on ultrasound. Discussed with hospitalist as well as with Dr. Randall and Dr. White. Patient only of the ER to go directly to the OR for pericardial window. While here she was initiated on antibiotics blood cultures were done and she was given a sepsis fluid bolus and started on Levophed. Medical Records I reviewed the patient's medical records. Lab Data I reviewed the patient's lab results. 12/16/22 10:12/16/22 10:29 Labs/Radiology: Laboratory Results WBC 19.12 10^3/uL (3.29-11.43) H 12/16/22 10: RBC 2.27 10^6/uL (3.85-5.65) L 12/16/22 10:29 Hgb 7.40 g/dL (11.27-16.99) L 12/16/22 10: Hct 25.9 % (36-47) L 12/16/22 10: MCV 114.1 fl (85-98) H 12/16/22 10: MCH 32.6 pg (27-33) 12/16/22 10: MCHC 28.6 g/dL (30-55) L 12/16/22 10: RDW 26.1 % (12.1-15.1) H 12/16/22 10:29 Plt Count 103 10^3/cmm (157-399) L 12/16/22 10: MPV 12.6 fL (7.4-10.4) H 12/16/22 10: Neut % (Auto) 88.6 % 12/16/22 10: Lymph % (Auto) 2.0 % 12/16/22 10: [place] % (Auto) 8.1 % 12/16/22 10: Eos % (Auto) 0.0 % 12/16/22 10: Baso % (Auto) 0.2 % 12/16/22 10: Neut # (Auto) 16.96 10^3/uL (1.8-7.7) H 12/16/22 10: Lymph # (Auto) 0.4 10^3/uL (0.8-4.8) L 12/16/22 10: [place] # (Auto) 1.5 10^3/uL (0.2-0.9) H 12/16/22 10: Eos # (Auto) 0.0 10^3/uL (0.0-0.8) 12/16/22 10: Baso # (Auto) 0.0 10^3/uL (0.0-0.1) 12/16/22 10: Nucleated RBC % (auto) 2.8 % 12/16/22 10: Nucleated RBCs # 0.5 /100WBC 12/16/22 10: Specimen Type Arterial 12/16/22 10:02 Sample Site Brachial, left 12/16/22 10:02 ABG pH 7.25 (7.35-7.45) L 12/16/22 10:02 ABG pCO2 19.0 mmHg (35-45) L* 12/16/22 10:02 ABG pO2 104.0 mmHg (80.0-100.0) H 12/16/22 10:02 ABG HCO3 8.3 mmol/L (22-26) L 12/16/22 10:02 ABG O2 Saturation 97.3 12/16/22 10:02 ABG Base Excess -17.4 mmol/L (-2.0-2.0) L 12/16/22 10:02 Tan Test Pos 12/16/22 10:02 A-a O2 Gradient 9.2 mmHg (5-10) 12/16/22 10:02 Hematocrit 22.2 % (37-47) L 12/16/22 10:02 Hgb O2 Saturation 94.7 % (95-100) L 12/16/22 10:02 Carboxyhemoglobin 1.9 %THgb (0.4-20.1) 12/16/22 10:02 Methemoglobin 0.8 % (0.4-1.5) 12/16/22 10:02 Total Hemoglobin 7.2 g/dL (12-16) L 12/16/22 10:02 Sodium 120.0 mmol/L (131-143) L 12/16/22 10:02 Potassium 5.3 mmol/L (3.5-5.0) H 12/16/22 10:02 Glucose 100.0 mg/dL (70-115) 12/16/22 10:02 Ionized Calcium 1.1 mmol/L (1.1-1.4) 12/16/22 10:02 O2 Delivery Device Nc 12/16/22 10:02 O2 Liters/Min 2.0 % 12/16/22 10:02 FiO2 28.0 % 12/16/22 10:02 Appliquer Zigzag ID Cak 12/16/22 10:02 Sodium 122 mmol/L (136-145) L 12/16/22 10:29 Potassium 5.4 mmol/L (3.5-5.1) H 12/16/22 10:29 Chloride 80 mmol/L (98-107) L 12/16/22 10:29 Carbon Dioxide 11 mmol/L (22-29) L 12/16/22 10:29 Anion Gap 36.4 (5-19) H 12/16/22 10:29 BUN 76 mg/dL (8-23) H 12/16/22 10:29 Creatinine 2.5 mg/dL (0.5-0.9) H 12/16/22 10:29 GFR Calculation 19.6 mL/min (90-130) L 12/16/22 10: Glucose 92 mg/dL (65-115) 12/16/22 10: Calculated Osmolality 276 mOsm/kg (285-295) L 12/16/22 10: Lactic Acid 14.2 mmol/L (0.5-2.2) H* 12/16/22 10: Calcium 8.7 mg/dL (8.5-10.5) 12/16/22 10:29 Magnesium 2.8 mg/dL (1.7-2.3) H 12/16/22 10: Total Bilirubin 0.9 mg/dL (0.15-1.2) 12/16/22 10: AST 138 U/L (0-32) H 12/16/22 10: ALT 164 U/L (0-33) H 12/16/22 10: Alkaline Phosphatase 189 U/L (35-105) H 12/16/22 10: Creatine Kinase 76 U/L (26-192) 12/16/22 10:33 Total Protein 6.9 g/dL (6.6-8.7) 12/16/22 10: Albumin 3.3 g/dL (3.5-5.2) L 12/16/22 10: Globulin 3.6 g/dL (1.3-4.6) 12/16/22 10:29 Urine Color Yellow (Yellow) 12/16/22 10:32 Urine Appearance Cloudy (CLEAR) A 12/16/22 10:32 Urine pH 6 (5-7) 12/16/22 10:32 Ur Specific [place] 1.015 (1.005-1.030) 12/16/22 10:32 Urine Protein 1+ (Negative) H 12/16/22 10:32 Urine Glucose (UA) Norm (Normal) 12/16/22 10:32 Urine Ketones Negative (Negative) 12/16/22 10:32 Urine Blood 3+ (Negative) H 12/16/22 10:32 Urine Nitrate Negative (Negative) 12/16/22 10:32 Urine Bilirubin Neg (Negative) 12/16/22 10:32 Urine Urobilinogen 1 mg/dL (Negative) H 12/16/22 10:32 Ur Leukocyte Esterase 2+ (Negative) H 12/16/22 10:32 Urine RBC 0-4 /hpf (0-2) H 12/16/22 10:32 Urine WBC >100 /hpf (0-5) H 12/16/22 10:32 Ur Squamous Epith Cells 0-4 /hpf (0-5) H 12/16/22 10:32 Amorphous Sediment Not Reportable 12/16/22 10:32 Urine Bacteria 4+ /hpf (NONE) H 12/16/22 10:32 All radiology interpretation(s) finalized by discharge Critical Care Time Critical Care Time: Critical Care Time: Yes Total Critical Care Time: 45 Attestation: The high probability of a clinically significant, sudden or life threatening deterioration of the patient's cardiovascular respiratory renal endocrine system(s) required my full and direct attention, intervention and personal management. The critical care time is as shown. This time is in addition to time spent performing any reported procedures but includes the following: [x] Data and vital sign review and interpretation [x] Patient assessment, examination and intervention [x] Documentation [x] Medication orders and management Discharge Plan Discharge Patient Disposition: Admitted As Inpatient Admit Provider: Ciro Norman Clinical Impression: Pericardial effusion with cardiac tamponade, Urinary tract infection, Bladder cancer, Metastatic urothelial carcinoma, Sepsis, Hyponatremia, Hyperkalemia, Thrombocytopenia, INDRA (acute kidney injury), Transaminitis Condition: Stable Coding Level of Care Code ED Cotton Puller for Eddy Cabrera
[2022-12-16] MEDS: dexamethasone 10 mg/mL INJ IV (10:30)
[2022-12-16] MEDS: ipratropium-albuterol 3 mL Neb INHALATION ×3 (10:31→19:30)
[2022-12-16 10:44] LABS: Basophils % 0.2 %; Hematocrit 25.9 % (36-47); Lymphocytes # 0.4 10^3/uL (0.8-4.8); Mean Corpuscular HGB Conc 28.6 g/dL (30-55); Mean Corpuscular Hemoglobin 32.6 pg (27-33); Mean Corpuscular Volume 114.1 fl (85-98); Mean Platelet Volume 12.6 fL (7.4-10.4); Monocytes # 1.5 10^3/uL (0.2-0.9); Monocytes % 8.1 %; Neutrophils # 16.96 10^3/uL (1.8-7.7); Neutrophils % 88.6 %; Nucleated Red Blood Cells # 0.5 /100WBC; Nucleated Red Blood Cells % 2.8 %; Platelet Count 103 10^3/cmm (157-399); Red Blood Count 2.27 10^6/uL (3.85-5.65); Red Cell Distribution Width 26.1 % (12.1-15.1); White Blood Count 19.12 10^3/uL (3.29-11.43)
[2022-12-16] MEDS: diphenhydrAMINE 50 mg/mL SDV 1mL 25 MG IVP (10:50)
[2022-12-16] MEDS: morphine 4 mg/mL SDV 1 mL 2 MG IVP (10:51)
[2022-12-16 10:57] LABS: Add Urine Microscopic? YES; Bilirubin Urine Neg (Negative); Blood Urine 3+ (Negative); Glucose Urine UA Norm (Normal); Ketones Urine Negative (Negative); Leukocyte Esterase Urine 2+ (Negative); Nitrate Urine Negative (Negative); Protein Urine 1+ (Negative); Specific Gravity, Urine 1.015 (1.005-1.030); Urine Appearance Cloudy (CLEAR); Urine Color Yellow (Yellow); Urobilinogen Urine 1 mg/dL (Negative); pH Urine 6 (5-7)
[2022-12-16 10:58] LABS: Add Urine Culture? Yes; Bacteria Urine 4+ /hpf; RBC Urine 0-4 /hpf (0-2); Squamous Epithelial Cell Urine 0-4 /hpf (0-5); WBC Urine >100 /hpf (0-5)
[2022-12-16 11:06] LABS: Alanine Aminotransferase 164 U/L (0-33); Albumin Level 3.3 g/dL (3.5-5.2); Alkaline Phosphatase 189 U/L (35-105); Anion Gap 36.4 (5-19); Aspartate Amino Transferase 138 U/L (0-32); Blood Urea Nitrogen 76 mg/dL (8-23); Calcium 8.7 mg/dL (8.5-10.5); Carbon Dioxide 11 mmol/L (22-29); Chloride 80 mmol/L (98-107); Globulin 3.6 g/dL (1.3-4.6); Glomerular Filtration Rate 19.6 mL/min (90-130); Glucose 92 mg/dL (65-115); Magnesium 2.8 mg/dL (1.7-2.3); Osmolality Calculated 276 mOsm/kg (285-295); Potassium 5.4 mmol/L (3.5-5.1); Sodium 122 mmol/L (136-145); Total Bilirubin 0.9 mg/dL (0.15-1.2); Total Protein 6.9 g/dL (6.6-8.7)
--- NOTE | 2022-12-16 11:06 | PC.PHAR ---
Addendum entered by Billie Hopson 12/16/22 11:11: pt states she is suppose to start balversa 8mg daily today 12/16/22 pt states didnt get to take today 12/16/22 Original Note: pt states she takes care of her own medications-pt states she is still taking lasix 80mg daily ext shows last filled 08/27/22 30d/s no refills-megestrol 200mg bid filled 10/23/22 30d/s no refills-nystatin 5mg tid prn filled 10/03/22 7d.s-valacyclovir 1gm daily filled 08/23/22 30d/s-kcl 40meq daily filled 08/23/22 30d/s rx has refills-pt states she is out of her oxycodone 5mg q8h prn rx filled 11/19/22 30d/s #30-pt states she is also out of her lorazepam 0.5mg q6h prn rx filled 11/07/22 8d/s-notes are made in the pharmacy comments
[2022-12-16] MEDS: sodium chloride 0.9% 1,000 ML 999 ML IV (11:12)
[2022-12-16 11:16] LABS: Lactic Sepsis W/Reflex 14.2 mmol/L (0.5-2.2)
[2022-12-16] MEDS: vancomycin 1,000 MG in sodium chloride 0.9% 250 ML 250 MG IV (11:32)
--- NOTE | 2022-12-16 11:32 | CT_ITS ---
WS: [id number] CT ABDOMEN PELVIS TECHNIQUE: Noncontrast CT of the abdomen and pelvis with coronal and sagittal reformatted images. CLINICAL INFORMATION: Bladder cancer previous left hydronephrosis septic shock cys COMPARISON: PET/CT 11/30/[address] abdomen pelvis 09/06/2022 DLP: 350.[address] scans at [facility] use at least one of these dose optimization techniques: automated e xposure control; mA and/or kV adjustment per patient size (includes targeted exams where dose is matc hed to clinical indication); or iterative reconstruction. FINDINGS: Large pericardial effusion progressed compared to the recent PET/CT, correlation for cardiac tamponad e. Pericardial effusion measures approximately 4.0 cm in short axis dimension. Diffuse body wall anasarca. Bibasilar atelectasis. Small bilateral pleural effusions. Compressive ate lectasis LEFT lower lobe. Recommend correlation for pneumonia. Small amount of perihepatic ascites. Small amount of free fluid in the abdomen and pelvis. Diffuse pascale dy wall anasarca. Stable abdominal aortic aneurysm measuring 3.7 x 3.7 cm. Aortic calcification. Air- fluid level in the distended stomach. Noncontrast pancreas appears normal. Adrenal glands are normal. Mild LEFT ureterectasis appears unchanged. No significant hydronephrosis in either kidney. Stable lob ulated bladder neoplasm. Stable previous described uterine metastasis. FDG avid lesion within the L5 vertebral body anteriorly. Sigmoid diverticulosis. Stable lymphadenopathy. IMPRESSION: 1. Markedly enlarged pericardial effusion measuring 4 cm in short axis dimension. Recommend correlat ion for cardiac tamponade. This is progressed compared to the prior studies. 2. Small bilateral pleural effusions with suspected LEFT lower lobe pneumonia. 3. Diffuse body wall anasarca with a small amount of free fluid in the pelvis. 4. No hydronephrosis in either kidney. 5. 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 6. Previously described FDG avid metastasis in the L5 vertebral body. 7. Stable abdominal aortic aneurysm. Message LEFT for Doni Swain DO at 12/16/2022 1:09 PM.
[2022-12-16] MEDS: piperacillin-tazobactam 2.25 GM in sodium chloride 0.9% (plus) 50 ML IV (11:51)
[2022-12-16] MEDS: phytonadione (ADULT) 10 mg/mL Ampule 1 mL PO (12:00)
[2022-12-16 12:25] LABS: Reflex Lactate Order REFLEX LACTIC ORDERD
--- NOTE | 2022-12-16 13:16 | USCV_ITS ---
Skye Ambrose Age: 62 Gender: F : 1960 Exam Date: 12/16/2022 13:27 Ordering Phys: Doni Swain DO Technologist: Balta Moya Exam Location: [facility] – [place] Indication: pericardial eff BP: / HR: 88 Rhythm: Other Technical Quality: Adequate MEASUREMENTS (Male / Female) Normal Values 2D ECHO LA Diameter 4.4 cm M-MODE Aortic Annulus Diameter 2.8 cm LA Ao Ratio MM 1.6 MV E Point Septal Separation 1.4 cm DOPPLER AV Peak Velocity 120.0 cm/s LVOT Peak Velocity 71.0 cm/s MV Area PHT 5.0 cm squared Mitral E to A Ratio 0.6 MV E' Velocity 33.5 cm/s Mitral E to MV E' Ratio 7.3 Mitral E to LV E' Lateral Ratio 8.4 Mitral E to LV E' Septal Ratio 6.5 TR Peak Velocity 88.7 cm/s TR Peak Gradient 3.1 mmHg FINDINGS Left Ventricle Normal left ventricular size and wall thickness. Moderately decreased left ventricular systolic function. Left ventricular ejection fraction is estimated at 40 %. Moderate global left ventricular hypokinesis. Grade I diastolic dysfunction (abnormal relaxation filling pattern), normal to mildly elevated filling pressures. Right Ventricle Normal right ventricular size and systolic function. Right Atrium Normal right atrial size. Left Atrium Left atrium not well visualized. Mitral Valve Structurally normal mitral valve. Aortic Valve Structurally normal trileaflet aortic valve. No aortic valve stenosis. No aortic valve regurgitation. Tricuspid Valve Structurally normal tricuspid valve. Pulmonic Valve Structurally normal pulmonic valve. Pericardium Large circumferential pericardial effusion. There seems to be right ventricular diastolic collapse compatible with a hemodynamically significant pericardial effusion. Aorta Normal size aortic root and proximal ascending aorta. IVC Inferior vena cava not visualized. CONCLUSIONS 1. Normal left ventricular size and wall thickness. Moderately decreased left ventricular systolic function. Left ventricular ejection fraction is estimated at 40 %. Moderate global left ventricular hypokinesis. Grade I diastolic dysfunction (abnormal relaxation filling pattern), normal to mildly elevated filling pressures. 2. Large circumferential pericardial effusion. There seems to be right ventricular diastolic collapse compatible with a hemodynamically significant pericardial effusion. 3. When compared to previous study dated 30 August 2022, there is large pericardial effusion with tamponade physiology. Debbie Simmons MD (Electronically Signed) Final Date: 16 December 2022 14:33 S
--- NOTE | 2022-12-16 13:32 | P.HP_ITS ---
Providers/Chief Complaint Admitting Physician: Ciro Norman MD Chief Complaint: sob History of Present Illness Skye Ambrose is a 62 year old female who has metastatic bladder cancer currently being treated by oncology. She presents with 1 day of increasing shortness of breath, chills, nausea. She has been taking Lasix for concerns of fluid overload lately. She has not been urinating as much. She denies any vomiting. She is constipated and has not had a bowel movement in the last several days. No blood in her stool or black or tarry stools. No documented fevers. Last chemotherapy treatment approximately November 12. She states she is due for one today. In the emergency department she received a sepsis bolus of fluids, IV vancomycin and Zosyn, a dose of morphine, a breathing treatment, and 10 mg of dexamethaso ne. She came in on epinephrine, and norepinephrine was ordered but her blood pressure has risen and it has not yet been started. Review of Systems 2 General: Reports: 10 or more systems reviewed and unremarkable except in HPI and below Card: Denies: chest pain Resp: Reports: dyspnea; Denies: productive cough or non-productive cough GI: Reports: abdominal pain and nausea; Denies: vomiting, hematochezia or melena Medications/Allergies Home Medications Medication Instructions Recorded Confirmed Last Taken Type artifi.tears(hypromellose)(PF) 0.3 1 drp ophthalmic (eye) DAILY PRN 03/20/22 12/16/22 06/11/22 History % eye drops right eye albuterol sulfate 2.5 mg/3 mL 2.5 mg (3 mL) inhalation Q4H PRN 04/02/22 12/16/22 06/12/22 07:00 Rx (0.083 %) solution for nebulization shortness of breath or wheezing #300 mL albuterol sulfate 90 mcg/actuation 2 puff inhalation Q6H PRN 04/02/22 12/16/22 12/16/22 Rx aerosol inhaler (ProAir HFA) shortness of breath or wheezing #18 grams epinephrine 0.3 mg/0.3 mL 0.3 mg (0.3 mL) IM Q10M PRN 04/02/22 12/16/22 04/15/22 Rx injection, auto-injector (EpiPen) anaphylaxis #1 ea fluticasone propionate 50 2 spray intranasal DAILY #16 grams 04/02/22 12/16/22 06/11/22 Rx mcg/actuation nasal spray,suspension (Allergy Relief (fluticasone)) furosemide 40 mg tablet 80 mg PO DAILY #60 tabs 04/02/22 12/16/22 3 Days Ago Rx ~12/13/22 lidocaine 5 % topical patch 1 patch topical DAILY PRN pain #30 04/02/22 12/16/22 06/04/22 Rx ea potassium chloride 40 mEq/15 mL 40 meq (15 mL) PO DAILY #450 mL 04/02/22 12/16/22 1 Day Ago Rx oral liquid ~09/04/22 valacyclovir 1 gram tablet 1,000 mg PO DAILY 30 days #30 tabs 04/02/22 12/16/22 1 Day Ago Rx ~09/04/22 docusate sodium 100 mg capsule 100 mg PO BID PRN Constipation 08/29/22 12/16/22 Unknown History (DOK) nystatin 100,000 unit/mL oral 5 ml PO TID PRN unknown 10/22/22 12/16/22 Unknown History suspension oxycodone 5 mg tablet 5 mg PO Q8H PRN pain 30 days #30 11/07/22 12/16/22 Unknown Rx tabs oxycodone 10 mg tablet,crush 10 mg PO BID 7 days #14 tabs 11/15/22 12/16/2204/08 Rx resistant,extended release 12 hr (OxyContin) ondansetron 4 mg disintegrating 4 mg PO TID #90 tabs 12/13/22 12/16/22 Unknown Rx tablet budesonide 0.5 mg/2 mL suspension 0.5 mg inhalation BID PRN unknown 12/16/22 12/16/22 Unknown History for nebulization (Pulmicort) erdafitinib 4 mg tablet 8 mg PO DAILY #42 tabs 12/16/22 Unknown Rx lidocaine-prilocaine 2.5 %-2.5 % See Rx Instructions .Route .COMPLEX 12/16/22 12/16/22 Unknown History topical cream megestrol 400 mg/10 mL (10 mL) 200 mg PO BID PRN unknown 12/16/22 12/16/22 Unknown History oral suspension Allergies Allergy/AdvReac Type Severity Reaction Status Date / Time ceftriaxone [[facility] Allergy Severe ALGY-Anaphy Verified 12/16/22 10:01 laxis cephalexin [From Keflex] Allergy Severe ALGY-Anaphy Verified 12/16/22 10:01 laxis eszopiclone [Lunesta] Allergy Severe ADR-Agitate Verified 12/16/22 10:01 d zaleplon [From Sonata] Allergy Severe ADR-Halluci Verified 12/16/22 10:01 nating zolpidem [From Ambien] Allergy Severe ADR-Halluci Verified 12/16/22 10:01 nating dextromethorphan Allergy Intermediate ADR-Halluci Verified 12/16/22 10:01 nating Iodinated Contrast Media Allergy UNK Verified 12/16/22 10:01 ketoprofen Allergy Unknown Verified 12/16/22 10:01 ketorolac [From Toradol] Allergy UNK Verified 12/16/22 10:01 mirtazapine [From Remeron] Allergy UNK Verified 12/16/22 10:01 nitrofurantoin Allergy UNK Verified 12/16/22 10:01 [From Macrobid] rofecoxib [From Vioxx] Allergy UNK Verified 12/16/22 10:01 sulfamethoxazole Allergy UNK Verified 12/16/22 10:01 [From Bactrim] sumatriptan [From Imitrex] Allergy UNK Verified 12/16/22 10:01 trimethoprim [From Bactrim] Allergy UNK Verified 12/16/22 10:01 PFSH Acute PFSH: Medical History (Updated 12/16/22 @ 13:59 by Ciro Norman MD) Allergy to iodine Anemia Anxiety, generalized Bladder cancer CAD (coronary artery disease) Chronic post-traumatic stress disorder (PTSD) COPD (chronic obstructive pulmonary disease) Hypertension Lumbar radiculopathy, chronic Metastatic urothelial carcinoma Pericardial effusion without cardiac tamponade Port-A-Cath in place Post herpetic neuralgia Pyelonephritis Urinary tract infection UTI (urinary tract infection) Vitamin D insufficiency Surgical History History of abdominoplasty History of bladder surgery History of breast augmentation Saline History of heart artery stent 2 stents September 2013 History of tubal ligation Family History Sister Diabetes Brother Diabetes Denies family history of Bleeding disorder Social History Smoking and tobacco status: current every day smoker cigarettes Packs smoked per day: 1 Years cigarettes smoked: 45 Second hand smoke exposure: Yes Smoking risk assessment/counseling performed?: Yes Alcohol intake: unknown Desire information about alcohol rehabilitation?: No Counseling given: No Substance/Drug Use: unknown Desire information about substance/drug rehabilitation?: No Counseling given: No Adopted: No Caregiver/support person: No Lives independently: Yes Household members: spouse Marital status: Number of children: 5 service: No Do you think of yourself as: Straight/Heterosexual Current gender identity: Female Vitals/I&O/Wt Last Vital Signs Temp 96.4 F L 12/16/22 09:56 Pulse 89 12/16/22 13:11 Resp 21 H 12/16/22 13:11 BP 120/75 12/16/22 13:11 Pulse Ox 100 12/16/22 13:11 O2 Del Method Nasal Cannula 12/16/22 13:11 O2 Flow Rate 2 12/16/22 13:11 Weight last 48 hrs Weight 43.091 kg Physical Exam Narrative: General exam is a white female, reporting she is very cold. HEENT: Atraumatic and normocephalic. Pupils equally round. Oropharynx dry. Neck is supple no lymphadenopathy thyromegaly Cardiovascular regular rate and rhythm, no murmur. Heart sounds distant. I do not auscultate a rub. Lungs diminished breath sounds bilaterally. Occasional wheeze Abdomen is tender, slight distention. Most of her tenderness is inferior to the umbilicus. exam was deferred Extremities no cyanosis clubbing or edema, cap refill about 2 seconds Skin no rash Neuro no obvious focal deficits Sepsis: Is patient septic: Yes Focused sepsis exam performed: Yes Date exam was performed: 12/16/22 Time exam was performed: 13:57 Data 12/16/22 10:29 12/16/22 10:29 Other Labs: ABG demonstrated a pH 7.25, PCO2 of 19, PO2 of 104 on 2 L LFTs demonstrated a total bilirubin 0.9. AST 138, ALT 164, alk phos 189. Lactic acid 14.2. Calcium 8.7, albumin 3.3.. Magnesium 2.8 She has had iron studies before showing that she is iron deficient Urinalysis shows greater than 100 whites, 0-4 reds, 4+ bacteria Chest x-ray which I reviewed demonstrates cardiomegaly, left lower lobe i nfiltrate. Central line noted. Abdomen pelvis CT demonstrate no hydronephrosis, anasarca, small bilateral effusions with left lower lobe pneumonia, markedly enlarged pericardial effusion, metastasis L5 and lobulated bladder neoplasm Stat echocardiogram has been done, there is concern for pericardial tamponade with effusion EKG which I reviewed demonstrates sinus tachycardia, normal axis, left atrial enlargement, nonspecific ST T wave changes noted in V4 -5 and laterally Micro: Microbiology 12/16/22 10:33 Blood Culture - Preliminary Blood SPECIMEN COLLECTED 12/16/22 10:29 Blood Culture - Preliminary Blood SPECIMEN COLLECTED A&P Assessment and plan (1) Sepsis: Patient presents to the hospital with sepsis, with concern for septic shock She presented to the emergency department on an epinephrine drip. Since receiving a fluid bolus, for sepsis she has been able to come off pressors. Norepinephrine has been ordered, to initiate should she become hypotensive again. IV antibiotics of vancomycin and Zosyn were given. Will continue vancomycin and meropenem. Likely source of infection is urinary Blood and urine cultures have been obtained. There is also concern of possible pneumonia left lower lobe. Antibiotics will be sufficient for this. Check MRSA PCR, sputum culture. (2) Pericardial effusion: Patient with significant pericardial effusion, which could also cause hypotension. She is being appropriately treated with fluid, until thoracic surgery can evaluate to determine if pericardial window is warranted. Effusion may be malignant, considering her metastatic bladder cancer. (3) Hyponatremia: She has significant hyponatremia. Etiology is not yet determined. She received dexamethasone on arrival to the emergency department Check TSH and cortisol level Continue hydrocortisone IV Repeat BMP around 1800 (4) Hyperkalemia: She has received significant hydration Await cortisol level Repeat BMP around 1800, further treatment if needed. Hyperkalemia is likely secondary to her renal failure and metabolic acidosis. (5) Thrombocytopenia: Platelet count is slightly low secondary to her sepsis. Continue to monitor. (6) UTI (urinary tract infection): Patient appears to have significant UTI. There is no evidence of obstruction. IV antibiotics consisting of vancomycin and meropenem Urine culture (7) INDRA (acute kidney injury): Patient with significant acute kidney injury. Continue IV fluids. BMP daily Check CK (8) Hypotension: Patient initially hypotensive secondary to sepsis versus tamponade. Blood pressure is better and she is not currently on pressors Continue to monitor closely (9) Transaminitis: Likely secondary to sepsis Repeat tomorrow, to ensure improvement occurs. Consider hepatitis panel or further imaging if it does not. (10) Metastatic urothelial carcinoma: Patient appears to be on palliative chemotherapy. Last treatment around November 12 Plan Anemia. Considering her hypotension, will transfuse 1 unit of packed red blood cells. Monitor CBC daily. COPD. Continue Pulmicort, DuoNeb Multiple other medical problems as outlined in past medical history Full code SCDs for DVT prophylaxis. Anticoagulation currently contraindicated as it is likely she will be going for pericardial drainage soon, she has significant anemia requiring transfusion, as well as thrombocytopenia. We will revisit whether anticoagulation is appropriate tomorrow. Attestations Medical Necessity Statement*: Will require greater than 2 midnight stay for evaluation and treatment of sepsis and pericardial effusion with tamponade Critical Care Time: The high probability of a clinically significant, sudden or life threatening deterioration of the patient's [, hematologic, infectious, renal, cardiac, pulmonary] system(s) required my full and direct attention, intervention and personal management. The critical care time is as shown. This time is in addition to time spent performing any reported procedures but includes the following: [x] Data and vital sign review and interpretation [x] Patient assessment, examination and intervention [x] Documentation [x] Medication orders and management Critical Care Time (min): 68 Coding Level of Care Code Critical Care >/= 30 minutes Critical care time (in minutes): 68 The high probability of a clinically significant, sudden or life threatening deterioration, as referenced in this documentation, required my full and direct attention, intervention and personal management. The critical care time shown is in addition to time spent performing any reported separately billable procedures and includes the following: [x] Data and vital sign review and interpretation [x ] Patient assessment, examination and intervention [x] Medication orders and management [x] Patient/Family updates as able [x] Care Coordination and D ocumentation. Diagnoses Sepsis A41.9 Pericardial effusion I31.39 Hyponatremia E87.1 Hyperkalemia E87.5 Thrombocytopenia D69.6 UTI (urinary tract infection) N39.0 INDRA (acute kidney injury) N17.9 Hypotension I95.9 Transaminitis R74.01 Metastatic urothelial carcinoma C79.10
--- NOTE | 2022-12-16 14:03 | PC.NURSE ---
pt 94.7 rectally, placed bear hugger on pt, notified Dr. Swain
--- NOTE | 2022-12-16 14:36 | P.CONIM_ITS ---
Providers/Reason For Consult Consulting Physician/Specialty*: Dr. Randall/cardiothoracic surgery Reason for Consult*: Pericardial tamponade with hemodynamic instability Requesting Physician: Dr. Swain Attending Physician: Ciro Norman MD History of Present Illness History of Present Illness Skye Ambrose is a 62 year old female whom I been consulted after her pre sentation to the emergency department with hypotension and increasing shortness of breath along with chills and nausea. She has a history of metastatic bladder carcinoma and is followed by our oncologic service. PET scan of November 30 of this year revealed metastatic lymphadenopathy in the chest, retroperitoneum, and pelvis showing partial response to previous therapies. There is no activity with increased FDG uptake in bone metastasis. There is a new mild left hydronephrosis and hydroureter. Pericardial effusion noted previously had increased from mild to moderate on this study from November 30. She was found to be hypotensive upon presentation initiated on epinephrine as well as fluid boluses with the presumption of urinary tract infection and sepsis. Chest x-ray revealed cardiomegaly which was new and CT scan of the abdomen revealed a circumferential pericardial effusion. Urgent transthoracic echocardiogram in the emergency department confirmed circumferential effusion with right ventricular collapse consistent with tamponade physiology. Presently, she has received 3 L crystalloid bolus with blood pressure now in the low to mid 80s. He has continued nausea. She is alert and oriented however. The recommendation for expeditious pericardial fluid drainage was frankly discussed and she is in agreement. She states she has been able to write and thereby gave verbal consent with 2 nursing emergency staff department members. She is no longer on epinephrine. She is noted to be anemic and I would recommend that further fluid administration required be considered as colloid and preferably packed RBCs. She has received IV vancomycin and Zosyn. Prior small pericardial effusion has been previously noted. She also was noted to have a 4.2 cm fusiform infrarenal abdominal aortic aneurysm from prior study Review of Systems Const: Reports: chills, body aches and fatigue ENMT: Denies: throat pain Card: Reports: lightheadedness, pre-syncope and dyspnea on exertion; Denies: chest pain Resp: Reports: dyspnea; Denies: productive cough GI: Reports: abdominal pain and nausea; Denies: coffee ground emesis Musc: Denies: neck pain Neuro: Denies: headache(s) or sensory changes Medications/Allergies Home Medications Medication Instructions Recorded Confirmed Last Taken Type artifi.tears(hypromellose)(PF) 0.3 1 drp ophthalmic (eye) DAILY PRN 03/20/22 12/16/22 06/11/22 History % eye drops right eye albuterol sulfate 2.5 mg/3 mL 2.5 mg (3 mL) inhalation Q4H PRN 04/02/22 12/16/22 06/12/22 07:00 Rx (0.083 %) solution for nebulization shortness of breath or wheezing #300 mL albuterol sulfate 90 mcg/actuation 2 puff inhalation Q6H PRN 04/02/22 12/16/22 12/16/22 Rx aerosol inhaler (ProAir HFA) shortness of breath or wheezing #18 grams epinephrine 0.3 mg/0.3 mL 0.3 mg (0.3 mL) IM Q10M PRN 04/02/22 12/16/22 04/15/22 Rx injection, auto-injector (EpiPen) anaphylaxis #1 ea fluticasone propionate 50 2 spray intranasal DAILY #16 grams 04/02/22 12/16/22 06/11/22 Rx mcg/actuation nasal spray,suspension (Allergy Relief (fluticasone)) furosemide 40 mg tablet 80 mg PO DAILY #60 tabs 04/02/22 12/16/22 3 Days Ago Rx ~12/13/22 lidocaine 5 % topical patch 1 patch topical DAILY PRN pain #30 04/02/22 12/16/22 06/04/22 Rx ea potassium chloride 40 mEq/15 mL 40 meq (15 mL) PO DAILY #450 mL 04/02/22 12/16/22 1 Day Ago Rx oral liquid ~09/04/22 valacyclovir 1 gram tablet 1,000 mg PO DAILY 30 days #30 tabs 04/02/22 12/16/22 1 Day Ago Rx ~09/04/22 docusate sodium 100 mg capsule 100 mg PO BID PRN Constipation 08/29/22 12/16/22 Unknown History (DOK) nystatin 100,000 unit/mL oral 5 ml PO TID PRN unknown 10/22/22 12/16/22 Unknown History suspension oxycodone 5 mg tablet 5 mg PO Q8H PRN pain 30 days #30 11/07/22 12/16/22 Unknown Rx tabs oxycodone 10 mg tablet,crush 10 mg PO BID 7 days #14 tabs 11/15/22 12/16/22 12/15/22 Rx resistant,extended release 12 hr (OxyContin) ondansetron 4 mg disintegrating 4 mg PO TID #90 tabs 12/13/22 12/16/22 Unknown Rx tablet budesonide 0.5 mg/2 mL suspension 0.5 mg inhalation BID PRN unknown 12/16/22 12/16/22 Unknown History for nebulization (Pulmicort) erdafitinib 4 mg tablet 8 mg PO DAILY #42 tabs 12/16/22 Unknown Rx lidocaine-prilocaine 2.5 %-2.5 % See Rx Instructions .Route .COMPLEX 12/16/22 12/16/22 Unknown History topical cream megestrol 400 mg/10 mL (10 mL) 200 mg PO BID PRN unknown 12/16/22 12/16/22 Unknown History oral suspension Allergies Allergy/AdvReac Type Severity Reaction Status Date / Time ceftriaxone [From Rocephin] Allergy Severe ALGY-Anaphy Verified 12/16/22 10:01 laxis cephalexin [From Keflex] Allergy Severe ALGY-Anaphy Verified 12/16/22 10:01 laxis eszopiclone [Lunesta] Allergy Severe ADR-Agitate Verified 12/16/22 10:01 d zaleplon [From Sonata] Allergy Severe ADR-Halluci Verified 12/16/22 10:01 nating zolpidem [From Ambien] Allergy Severe ADR-Halluci Verified 12/16/22 10:01 nating dextromethorphan Allergy Intermediate ADR-Halluci Verified 12/16/22 10:01 nating Iodinated Contrast Media Allergy UNK Verified 12/16/22 10:01 ketoprofen Allergy Unknown Verified 12/16/22 10:01 ketorolac [From Toradol] Allergy UNK Verified 12/16/22 10:01 mirtazapine [From Remeron] Allergy UNK Verified 12/16/22 10:01 nitrofurantoin Allergy UNK Verified 12/16/22 10:01 [From Macrobid] rofecoxib [From Vioxx] Allergy UNK Verified 12/16/22 10:01 sulfamethoxazole Allergy UNK Verified 12/16/22 10:01 [From Bactrim] sumatriptan [From Imitrex] Allergy UNK Verified 12/16/22 10:01 trimethoprim [From Bactrim] Allergy UNK Verified 12/16/22 10:01 Current Medications Generic Name Dose Route Start Last Admin Trade Name Freq PRN Reason Stop Dose Admin Norepinephrine Bitartrate 4 mg 254 mls @ 0 mls/hr 12/16/22 11:30 12/16/22 14:17 / Dextrose IV 6 mcg/min .Q0M JENNIFER 22.86 mls/hr Administration Protocol Per Protocol PFSH Acute PFSH: Medical History Allergy to iodine Anemia Anxiety, generalized Bladder cancer CAD (coronary artery disease) Chronic post-traumatic stress disorder (PTSD) COPD (chronic obstructive pulmonary disease) Hypertension Lumbar radiculopathy, chronic Metastatic urothelial carcinoma Pericardial effusion without cardiac tamponade Port-A-Cath in place Post herpetic neuralgia Pyelonephritis Urinary tract infection UTI (urinary tract infection) Vitamin D insufficiency Surgical History History of abdominoplasty History of bladder surgery History of breast augmentation Saline History of heart artery stent 2 stents September 2013 History of tubal ligation Family History Sister Diabetes Brother Diabetes Denies family history of Bleeding disorder Social History Smoking and tobacco status: current every day smoker cigarettes Packs smoked per day: 1 Years cigarettes smoked: 45 Second hand smoke exposure: Yes Smoking risk assessment/counseling performed?: Yes Alcohol intake: unknown Desire information about alcohol rehabilitation?: No Counseling given: No Substance/Drug Use: unknown Desire information about substance/drug rehabilitation?: No Counseling given: No Adopted: No Caregiver/support person: No Lives independently: Yes Household members: spouse Marital status: Number of children: 5 service: No Do you think of yourself as: Straight/Heterosexual Current gender identity: Female Vitals/I&O/Wt Last Vital Signs Temp 94.7 F L 12/16/22 14:02 Pulse 89 12/16/22 13:11 Resp 21 H 12/16/22 13:11 BP 84/37 12/16/22 14:34 Pulse Ox 90 12/16/22 14:34 O2 Del Method Nasal Cannula 12/16/22 14:30 O2 Flow Rate 5 12/16/22 14:30 12/15/22 12/16/22 12/16/22 22:59 06:59 14:59 Intake Total 2592.73 / 2592.73 Balance 2592.73 / 2592.73 Weight last 48 hrs Weight 95 lb Physical Exam Const: COMMON NORMALS: patient oriented x3 and alert; apparent distress and negative for healthy appearing OTHER: Moderate dyspnea while sitting upright. She also has ongoing nausea. She has received Zofran. HENMT: COMMON NORMALS: normocephalic, atraumatic, hearing grossly normal bilaterally, external ears normal and Normal external nose present HEAD & SCALP: normocephalic and atraumatic NOSE: Normal external nose present EXTERNAL EAR: Yes external ears normal Neck/C-Spine: COMMON NORMALS: negative for no JVD OTHER: Some JVD is noted while sitting upright consistent with pericardial effusion and tamponade physiology. Chest: COMMONS NORMALS: normal palpation of entire chest wall OTHER: Palpable left subclavicular Port-A-Cath in place Resp: COMMON NORMALS: clear to auscultation bilaterally; negative for normal respiratory effort EFFORT & INSPECTION: Yes able to speak in complete sentences, Yes symmetric chest movement, Yes abnormal respiratory pattern, Yes tachypneic and Yes labored AUSCULTATION: clear to auscultation bilaterally Cardio: COMMON NORMALS: negative for no JVD OTHER: Somewhat muffled consistent with pericardial effusion GI: COMMON NORMALS: Normal to inspection, nondistended, normoactive bowel sounds present Neuro: COMMON NORMALS: patient oriented x3 SENSORIUM/ORIENTATION: Yes alert Urinary Catheter Management: Coffman: Cath Placed During This Visit: yes Reason for Continuing Indwelling Catheter: Accurate Measurement of Urinary Output in Critically Ill Patients Urinary Catheter Date of Insertion: 12/16/22 Urinary Catheter Time of Insertion: 14:02 Data 12/16/22 10:29 12/16/22 10:29 Micro: Microbiology 12/16/22 10:33 Blood Culture - Preliminary Blood SPECIMEN COLLECTED 12/16/22 10:29 Blood Culture - Preliminary Blood SPECIMEN COLLECTED A&P Assessment and plan (1) Pericardial effusion with cardiac tamponade: 62-year-old female with metastatic bladder carcinoma with known metastases and prior history for pericardial effusion which is now enlarged to the point that she has evidence of both by echocardiogram exam as well as physical exam for tamponade physiology. She is hypotensive after 3 L fluid bolus though pressures have been able to be decreased. We recommend expeditious attempt at surgical drainage. Rationale for this was frankly discussed with Ms. Ambrose. She states understanding and wishes for us to proceed. Verbal consent was given as she states she cannot write. This was witnessed by to ER nursing staff members for confirmation. We will proceed in exudations fashion to the operating room theater. Dr. Gama from anesthesia is at bedside during my exam and discussion. Consult Attestations Medical Necessity Statement: Pericardial effusion with tamponade physiology and history of metastatic bladder carcinoma Coding Level of Care Code Acute Code for Chg Fwd Diagnoses Pericardial effusion with cardiac tamponade I31.39; I31.4
[2022-12-16 15:00] LABS: Creatine Phosphokinase 76 U/L (26-192)
[2022-12-16 15:11] LABS: Thyroid Stimulating Hormone 3.74 uIU/mL (0.27-4.20)
[2022-12-16 15:16] LABS: Lactic Acid level (Lactate) 14.6 mmol/L (0.5-2.2)
[2022-12-16 15:28] LABS: Basophils % 0.1 %; Hematocrit 21.6 % (36-47); Lymphocytes # 1.1 10^3/uL (0.8-4.8); Lymphocytes % 5.2 %; Mean Corpuscular HGB Conc 27.8 g/dL (30-55); Mean Corpuscular Hemoglobin 33.5 pg (27-33); Mean Corpuscular Volume 120.7 fl (85-98); Monocytes % 9.1 %; Neutrophils # 18.03 10^3/uL (1.8-7.7); Neutrophils % 83.8 %; Nucleated Red Blood Cells # 0.7 /100WBC; Nucleated Red Blood Cells % 3.1 %; Platelet Count 63 10^3/cmm (157-399); Red Blood Count 1.79 10^6/uL (3.85-5.65); Red Cell Distribution Width 26.1 % (12.1-15.1); White Blood Count 21.53 10^3/uL (3.29-11.43)
[2022-12-16 15:41] LABS: Alanine Aminotransferase 114 U/L (0-33); Albumin Level 2.4 g/dL (3.5-5.2); Alkaline Phosphatase 136 U/L (35-105); Anion Gap 31.8 (5-19); Aspartate Amino Transferase 116 U/L (0-32); Blood Urea Nitrogen 69 mg/dL (8-23); Chloride 91 mmol/L (98-107); Globulin 2.4 g/dL (1.3-4.6); Glomerular Filtration Rate 21.6 mL/min (90-130); Glucose 67 mg/dL (65-115); Osmolality Calculated 278 mOsm/kg (285-295); Potassium 5.8 mmol/L (3.5-5.1); Sodium 125 mmol/L (136-145); Total Bilirubin 0.7 mg/dL (0.15-1.2); Total Protein 4.8 g/dL (6.6-8.7)
[2022-12-16 15:48] LABS: Carbon Dioxide 8 mmol/L (22-29)
--- NOTE | 2022-12-16 15:55 | PC.NURSE ---
Addendum entered by Jacey Valentine RN 12/16/22 16:00: Dr. Norman in room and verbally gave orders to start LEVO at 6mcg versus protocol rates. Original Note: Patient brought into ED via EMS stating that upon their arrival patient had undetectable blood pressure and oxygen saturation. They stated they gave epi and was able to get the reading please see triage note. Patient was able to sit up in stretcher with stable VS please see charting for accurate vitals. Placed patient on bear hugger as patients temp dropped from arrival down to 94.7F as well as BP dropped to 50/20 manually and started Levo at that time. Surgery team took patient to OR. Report called to Daisy MAYO in ICU.
[2022-12-16 15:56] LABS: ABG PCO2 41.1 mmHg (35-45); Arterial Blood Gas Hematocrit 26.4 % (37-47); Base Excess ABG -29.2 mmol/L (-2.0-2.0); Blood Gas Allen Test Pos; Blood Gas Operator Identificat glc; Blood Gas Sample Type Arterial; Carboxyhemoglobin 1.7 %THgb (0.4-20.1); HCO3 ABG 5.3 mmol/L (22-26); HGB O2 Sat 97.6 % (95-100); Methemoglobin 0.7 % (0.4-1.5); Oxygen Saturation ABG 99.9; Potassium Level - ABG 4.9 mmol/L (3.5-5.0); Total Hemoglobin 8.6 g/dL (12-16)
[2022-12-16 15:59] LABS: ABG PH Result 6.72 (7.35-7.45)
--- NOTE | 2022-12-16 16:15 | PM.OP ---
Operative Report Date of procedure: December 16, 2022 Pre-op diagnosis: Pericardial effusion with tamponade Post-op diagnosis: same Procedure done: Subxiphoid pericardial window Specimens removed/disposition: 750 cc of bloody pericardial effusion Pericardial biopsy sent to pathology Surgeon: Bennie Randall Surgeon: Bennie Randall MD Anesthesia: MAC Estimated blood loss (mL): 25 Complications: Acute hypotensive under anesthesia with loss of recordable blood pressure necessitating closed chest compression after initial draining of pericardial effusion. Compressions continued for 2 minutes along with clinical support and then ROSC Condition: critical Disposition: ICU Brief History: Ms. Ambrose is a 62-year-old female with metastatic urinary malignancy who presented with 1 day history of fatigue, fever, and worsening shortness of breath. This evaluation was consistent with urinary tract infection with sepsis. Widened cardiac silhouette on chest x-ray prompted transthoracic echocardiogram which revealed a large circumferential effusion with tamponade physiology. She required vasopressor support with Levophed along with 3 L of crystalloid. I was consulted and recommended urgent attempt at subxiphoid pericardial window. Rationale for this was carefully discussed with the patient. She gave verbal consent and she stated she could not write. This was witnessed by nursing personnel from the emergency department and confirmed. Procedure: Ms. Ambrose was carefully positioned on the operating room table with the operating team scrubbed and instruments ready. Anesthesia could not place arterial line or central line. Patient developed acute hypotension and loss of circulation as the procedure was urgently initiated. I was able to acutely drain the pericardium through the subxiphoid approach utilizing a #10 scalpel blade from the skin down to the subxiphoid space and through the pericardium, recovering 750 cc of sanguinous pleural effusion. I initiated closed chest compressions as epinephrine was administered x2. She subsequently had return of cardiac activity and a recordable blood pressure. A portion of pericardium was then collected for permanent pathologic analysis. A 28 Nepali mediastinal drain was then placed through an inferior placed incision and directed posteriorly beneath the heart. This was connected to Pleur-evac suction. Wound was irrigated and hemostasis confirmed. The incision then closed by reapproximating the fascia with 0 Vicryl suture. Subcutaneous layer was closed with 2-0 Vicryl suture. Skin was reapproximated utilizing skin shayne considering the unstable condition of the patient. Sterile dressing was applied. Related to difficulties with anesthesia placement of invasive lines, Dr. Gama was able to pathways a right neck line triple-lumen catheter. I separately placed a right femoral arterial catheter allow for more direct blood pressure monitoring. Ms. Ambrose did receive 2 units of uncrossed match blood during the procedure as her initial presenting hemoglobin was quite low prior to volume resuscitation. I have conferred with my colleague, Dr. Norman at completion of the procedure. Patient be transferred to the ICU in critical condition where she will be carefully monitored by a multidisciplinary team. There are no immediate family member available for consultations. We will continue to reach out.
--- NOTE | 2022-12-16 16:34 | XRR_ITS ---
PROCEDURE INFORMATION: Exam: XR Chest Exam date and time: 12/16/2022 4:46 PM Age: 62 years old Clinical indication: Device placement; Other: Central line, intubation; Patient HX: Post pericardial window central line placement chest tube TECHNIQUE: Imaging protocol: Radiologic exam of the chest. Views: 1 view. COMPARISON: CR XR chest 1V portable [id number] 12/16/2022 10:07 AM FINDINGS: Tubes, catheters and devices: there is an ET tube with tip 2.9 cm above the gray, left subclavian port with tip in the right atrium, right IJ central line with tip in the superior vena cava and mediastinal drain projected over the heart. Lungs: There is interval mild increase in vascular congestion with cephalization of flow, interstitial edema and ground-glass opacities compatible with increasing CHF. There is increasing density left lower lobe compatible with atelectasis versus lobar infiltrate. Pleural spaces: There is a small left pleural effusion increased compared to the prior. There is no evidence of pneumothorax. Heart/Mediastinum: The heart is enlarged. Bones/joints: No acute abnormality. Soft tissues: Superficial skin shayne are projected over the lower chest and upper abdomen. XR/XR chest 1V portable [id number] IMPRESSION: 1. Lines and tubes in good position. 2. There is interval mild increase in vascular congestion with cephalization of flow, interstitial edema and ground-glass opacities compatible with increasing CHF. Increasing left pleural effusion. 3. There is increasing density left lower lobe compatible with atelectasis versus lobar infiltrate.
--- NOTE | 2022-12-16 16:34 | PM.MISC ---
Miscellaneous Note Purpose of Documentation: Intraoperative Event Note: Patient brought to OR in resp distress, while attempting placement of arterial line and drawing of Type & Screen patient decompensated further with decreasing mental status. Batres called to OR emergently due to increased urgency and patient was quickly prepped while concurrent intubation occurred as patient was now agonal in breaths, altered mental status, and with dropping saturations, and bradycardia. ETCO2 upon intubation noted to be 10 mmHg and bradycardic to 20 HR, epinephrine 1 mg IV given and chest compressions started after sucessful drainage of aprox 750 ml of percardial fluid. After 1 round of CPR patient had ROSC with brisk carotid pulse. Epi drip and levo drip started during process. 2 units of blood obtained and given. Central line started and femoral A-line started. Surgeon requested dopamine to replace epi drip. ABG drawn and bicarbonate 2 amps administered. By conclusion of OR patient was off all pressors due to hypertension. transferred to ICU in critical condition. Report given at bedside to hospitalist, RT, and nursing staff alongside CT surgeon.
--- NOTE | 2022-12-16 16:45 | ANES.PROC ---
Anesthesia Procedures Procedure/Date: 12/16/22 Central Venous Insert: Central Venous Line: R IJ Time Out Performed: Yes Central Line: New Anesthesia monitors: pulse oximetry, EKG, BP cuff and oxygen Vein cannulated: right internal jugular Ultrasound used: to identify patency to vessel and to visualize needle entry to vein Post procedure: Obtain Chest X-Ray Additional Comments: Patient neck was sterilely prepped. R IJ cannulated under US guidance. Upon placement of guidewire, US revealed possibility of guidewire in lateral carotid. Thus guidewire removed and second stick obtained with appropriate US imaging revealing guidewire in R IJ in-plane and out of plane images. Vein dilated and Central line placed, guidewire removed, and line sutured in place. Gauze and sterile dressing applied over oozing surrounding central line insertion site with development of hemotoma on R neck noted. Hematoma and possible carotid puncture communicated to Dr. Norman.
[2022-12-16] MEDS: sodium bicarbonate 150 MEQ in dextrose 5% 1,000 ML 75 MEQ IV (16:53)
[2022-12-16] MEDS: meropenem 500 MG in sodium chloride 0.9% (plus) 50 ML 100 MG IV (16:57)
[2022-12-16] MEDS: hydrocortisone 100 mg/2 mL SDV 50 MG IVP ×2 (16:59→23:52)
--- NOTE | 2022-12-16 17:03 | PM.PN ---
Subjective Subjective: 1435: Patient to OR. Tripod position SOB tachypnea, Patient unable to lay flat moved to OR bed artline attempted bilateral radial and brachial Levophed infusing. 1450: Dr. Randall called to room. 1458:Patient intubated and incision made 750ml dark blood evacuated cardiovascular collapse. 1502: Chest compressions started and 1 ampule of Epi. given. compressions continued for 2 min. additional ampule of Epi given. ventricular tachycardia noted followed by sinus tachycardia. 1506 sinus tach BP 154/62 1510: 2 units of PRBC given 1513: CVL started by Dr. Foreman (right IJ central line successfully placed at 1544) 1516: Dopamine started Dr. Randall stated the heart looked full . 1544: Dr. Randall placed right groin arterial line. 1601: Levophed stopped Dopamine stopped 1603: 2 amps HCO-3 given (see ABG) report called to ICU. 1620: dropped off at ICU with Dr. Foreman, Dr. Norman, Dr. Randall at bedside. VSS 152/67, HR 83, SPO2 100%, RR 20 50% Fio2 Vitals/I&O/Wt Last Vital Signs Temp 94.7 F L 12/16/22 14:02 Pulse 72 12/16/22 16:45 Resp 20 H 12/16/22 16:36 BP 144/90 12/16/22 16:45 Pulse Ox 100 12/16/22 16:45 O2 Del Method Mechanical Ventilation 12/16/22 16:45 O2 Flow Rate 5 12/16/22 14:30 FiO2 50 12/16/22 16:45 12/16/22 12/16/22 12/16/22 06:59 14:59 22:59 Intake Total 2592.73 / 2592.73 Balance 2592.73 / 2592.73 Weight last 48 hrs Weight 43.091 kg Physical Exam Urinary Catheter Management: Coffman: Cath Placed During This Visit: yes Reason for Continuing Indwelling Catheter: Accurate Measurement of Urinary Output in Critically Ill Patients Urinary Catheter Date of Insertion: 12/16/22 Urinary Catheter Time of Insertion: 14:02 Data 12/16/22 15:13 12/16/22 15:13 Micro: Microbiology 12/16/22 10:33 Blood Culture - Preliminary Blood SPECIMEN COLLECTED 12/16/22 10:29 Blood Culture - Preliminary Blood SPECIMEN COLLECTED Attestations Medical Necessity Statement*: N/A Coding Level of Care Code Acute Code for Chg Fwd Diagnoses
[2022-12-16 18:33] LABS: ABG PCO2 23.7 mmHg (35-45); Arterial Blood Gas Hematocrit 27.8 % (37-47); Base Excess ABG -18.3 mmol/L (-2.0-2.0); Blood Gas Operator Identificat CAK; Blood Gas Sample Type Arterial; Blood Gas Tidal Volume 0.35; HCO3 ABG 8.6 mmol/L (22-26); Oxygen Device VENT
[2022-12-16 18:35] LABS: ABG PH Result 7.17 (7.35-7.45)
[2022-12-16 19:17] LABS: Basophils # 0.1 10^3/uL (0.0-0.1); Basophils % 0.3 %; Hematocrit 34.2 % (36-47); Lymphocytes # 0.3 10^3/uL (0.8-4.8); Lymphocytes % 1.7 %; Mean Corpuscular Hemoglobin 31.9 pg (27-33); Mean Platelet Volume 12.8 fL (7.4-10.4); Monocytes # 0.7 10^3/uL (0.2-0.9); Monocytes % 4.3 %; Neutrophils % 92.5 %; Nucleated Red Blood Cells # 0.5 /100WBC; Nucleated Red Blood Cells % 3.1 %; Platelet Count 33 10^3/cmm (157-399); Red Blood Count 3.32 10^6/uL (3.85-5.65); Red Cell Distribution Width 22.3 % (12.1-15.1); White Blood Count 15.46 10^3/uL (3.29-11.43)
[2022-12-16] MEDS: budesonide 0.5 mg/2 mL Neb INHALATION (19:28)
[2022-12-16 19:32] LABS: Anion Gap 29.1 (5-19); Blood Urea Nitrogen 64 mg/dL (8-23); Calcium 6.6 mg/dL (8.5-10.5); Carbon Dioxide 12 mmol/L (22-29); Chloride 92 mmol/L (98-107); Glomerular Filtration Rate 25.3 mL/min (90-130); Glucose 142 mg/dL (65-115); Osmolality Calculated 289 mOsm/kg (285-295); Potassium 4.1 mmol/L (3.5-5.1); Sodium 129 mmol/L (136-145)
[2022-12-16] MEDS: propofol 1,000 MG/100 ML INJ 2.59 MG IV (19:52)
--- NOTE | 2022-12-16 20:20 | PC.NURSE ---
Hospitalist notified for Rectal Temp of 90.0 F. Orders given to allow permissive hypothermia post code of 32C or 89.6F. Night Hospitalist notified of sustained systolic >170 on art line and cuff. Orders received for parameters for BP and medical treatment.
[2022-12-16] MEDS: calcium chloride 10% Syr 10 mL 1 GM IVP (20:37)
[2022-12-17] VITALS (262 sets, daily range): BP systolic 89–168; BP diastolic 49–105; PULSE 81–116; RESP 16–26; TEMP 34.2–37.6; O2SAT 89–100; BMI 17.9
[2022-12-17] MEDS: sodium chloride 0.9% (100 ml) 100 ML 25 ML (01:12)
[2022-12-17 02:08] LABS: Basophils % 0.2 %; Hematocrit 35.5 % (36-47); Lymphocytes # 0.2 10^3/uL (0.8-4.8); Lymphocytes % 1.6 %; Mean Corpuscular HGB Conc 31.5 g/dL (30-55); Mean Corpuscular Hemoglobin 31.2 pg (27-33); Mean Corpuscular Volume 98.9 fl (85-98); Mean Platelet Volume 9.8 fL (7.4-10.4); Monocytes # 0.3 10^3/uL (0.2-0.9); Monocytes % 2.5 %; Neutrophils # 12.78 10^3/uL (1.8-7.7); Neutrophils % 94.6 %; Nucleated Red Blood Cells # 0.6 /100WBC; Nucleated Red Blood Cells % 4.7 %; Platelet Count 39 10^3/cmm (157-399); Red Blood Count 3.59 10^6/uL (3.85-5.65); Red Cell Distribution Width 23.1 % (12.1-15.1); White Blood Count 13.51 10^3/uL (3.29-11.43)
--- NOTE | 2022-12-17 02:12 | PC.NURSE ---
Patient was aroused around 2300 and able to follow commands: open/close eyes, squeeze hand, wiggle toes. Patient indicated pain and fentanyl was started. Propofol initiated at starting dose as patient became more arousable. Hospitalist notified and instructed this nurse to attempt to hold propofol at low dose (5 mcg/kg)
[2022-12-17 02:51] LABS: Anion Gap 20.8 (5-19); Blood Urea Nitrogen 70 mg/dL (8-23); Calcium 7.7 mg/dL (8.5-10.5); Carbon Dioxide 19 mmol/L (22-29); Chloride 93 mmol/L (98-107); Glomerular Filtration Rate 25.3 mL/min (90-130); Glucose 247 mg/dL (65-115); Osmolality Calculated 297 mOsm/kg (285-295); Potassium 3.8 mmol/L (3.5-5.1); Sodium 129 mmol/L (136-145)
[2022-12-17] MEDS: ipratropium-albuterol 3 mL Neb INHALATION ×4 (02:56→20:25)
[2022-12-17 03:24] LABS: ABG PCO2 33.6 mmHg (35-45); ABG PH Result 7.38 (7.35-7.45); Arterial Blood Gas Hematocrit 23.8 % (37-47); Base Excess ABG -4.9 mmol/L (-2.0-2.0); Blood Gas Sample Site Radial, right; Blood Gas Sample Type Arterial; Blood Gas Tidal Volume 0.35; HCO3 ABG 19.7 mmol/L (22-26); Oxygen Device VENT
[2022-12-17] MEDS: meropenem 500 MG in sodium chloride 0.9% (plus) 50 ML 100 MG IV ×2 (03:58→17:43)
[2022-12-17] MEDS: DOPamine drip 400 MG/250 ML PREMIX IV (04:10)
[2022-12-17 04:59] LABS: Basophils % 0.3 %; Lymphocytes # 0.1 10^3/uL (0.8-4.8); Lymphocytes % 0.9 %; Mean Corpuscular HGB Conc 32.5 g/dL (30-55); Mean Corpuscular Volume 95.2 fl (85-98); Mean Platelet Volume 10.7 fL (7.4-10.4); Monocytes # 0.4 10^3/uL (0.2-0.9); Monocytes % 2.6 %; Neutrophils # 13.75 10^3/uL (1.8-7.7); Nucleated Red Blood Cells % 6.8 %; Platelet Count 158 10^3/cmm (157-399); Red Blood Count 3.36 10^6/uL (3.85-5.65); Red Cell Distribution Width 23.4 % (12.1-15.1); White Blood Count 14.47 10^3/uL (3.29-11.43)
[2022-12-17 05:05] LABS: Bacillus cereus group Not Detected (NOT DETECT); Bacillus subtillis group Not Detected (NOT DETECT); Corynebacterium Not Detected (NOT DETECT); Cutibacterium acnes (P.acnes) Not Detected (NOT DETECT); Enterococcus Not Detected (NOT DETECT); Enterococcus faecalis Not Detected (NOT DETECT); Enterococcus faecium Not Detected (NOT DETECT); Lactobacillus species Not Detected (NOT DETECT); Listeria Not Detected (NOT DETECT); Listeria monocytogenes Not Detected (NOT DETECT); Micrococcus Not Detected (NOT DETECT); Pan Candida Not Detected (NOT DETECT); Pan Gram-Negative Not Detected (NOT DETECT); Staphylococcus epidermidis Not Detected (NOT DETECT); Staphylococcus lugdunensis Not Detected (NOT DETECT); Staphylococcus species Detected (NOT DETECT); Streptococcus agalactiae Not Detected (NOT DETECT); Streptococcus anginosus group Not Detected (NOT DETECT); Streptococcus pneumoniae Not Detected (NOT DETECT); Streptococcus pyogenes Not Detected (NOT DETECT); Streptococcus species Not Detected (NOT DETECT); mecA Detected (NOT DETECT); mecC Not Detected (NOT DETECT)
[2022-12-17 05:24] LABS: Alanine Aminotransferase 163 U/L (0-33); Albumin Level 2.6 g/dL (3.5-5.2); Alkaline Phosphatase 148 U/L (35-105); Anion Gap 19.7 (5-19); Aspartate Amino Transferase 331 U/L (0-32); Blood Urea Nitrogen 69 mg/dL (8-23); Carbon Dioxide 24 mmol/L (22-29); Chloride 90 mmol/L (98-107); Globulin 2.6 g/dL (1.3-4.6); Glomerular Filtration Rate 26.9 mL/min (90-130); Glucose 177 mg/dL (65-115); Osmolality Calculated 294 mOsm/kg (285-295); Potassium 3.7 mmol/L (3.5-5.1); Sodium 130 mmol/L (136-145); Total Bilirubin 1.6 mg/dL (0.15-1.2); Total Protein 5.2 g/dL (6.6-8.7)
[2022-12-17 06:10] LABS: INR 1.81 (0.8-1.2); Partial Thromboplastin Time 37.3 SECONDS (23.9-36.7)
[2022-12-17 06:11] LABS: Fibrinogen 158 mg/dL (174-498)
[2022-12-17 06:21] LABS: D Dimer 13.34 ug/mLFEU (0-0.59)
--- NOTE | 2022-12-17 07:00 | XR_ITS ---
WS: [id number] EXAMINATION: XR chest 1V portable [id number] REASON FOR EXAM: resp failure COMPARISON: None available. ORDER DATE: 12/17/2022 7:00 AM TECHNIQUE: A single, portable frontal chest x-ray was obtained. X-RAY FINDINGS: there is an ET tube which has been retracted since previous with tip 3 cm above the gray, left subclavian port with tip in the right atrium, right IJ central line with tip in the superior vena cava and mediastinal drain projected over the heart. Lungs: There is interval mild increase in vascular congestion with cephalization of flow, interstitial edema and ground-glass opacities compatible with increasing CHF. There is decreasing density left lower lobe compatible with atelectasis versus lobar infiltrate. Pleural spaces: There is a small left pleural effusion unchanged compared to the prior. There is no evidence of pneumothorax. Heart/Mediastinum: The heart is enlarged. Bones/joints: No acute abnormality. Soft tissues: Superficial skin shayne are projected over the lower chest and upper abdomen. IMPRESSION: 1. Lines and tubes in good position. 2. There is interval mild increase in vascular congestion with cephalization of flow, interstitial edema and ground-glass opacities compatible with increasing CHF. 3. There is decreasing density left lower lobe compatible with atelectasis versus lobar infiltrate.
[2022-12-17] MEDS: hydrocortisone 100 mg/2 mL SDV 50 MG IVP ×2 (07:37→20:21)
--- NOTE | 2022-12-17 07:38 | ANE.PACU2 ---
Inpatient post-anesthesia follow up: Airway intact: No Vital signs: Temperature 96.5 F Pulse Rate 102 Respiratory Rate 20 Blood Pressure 130/66 Pulse Oximetry 93 Oxygen Delivery Me thod Mechanical Ventila tion Oxygen Flow Rate 5 Fraction of Inspir ed Oxygen 30 Hydration adequate: Yes Nausea and vomiting: No Pain level: 1 Mental status: Altered Additional Comments: Intubated and sedated on dopamine 3 mcg/kg and bicarbonate drip
[2022-12-17] MEDS: budesonide 0.5 mg/2 mL Neb INHALATION ×2 (07:49→20:25)
--- NOTE | 2022-12-17 08:29 | P.PN_ITS ---
Subjective Subjective: Patient sedated on the ventilator, but does come awake with stimulation and can follow some simple commands. Nurse reports that this started occurring last night. Medications: Reviewed: Yes Vitals/I&O/Wt Last Vital Signs Temp 96.5 F L 12/17/22 06:15 Pulse 103 H 12/17/22 07:53 Resp 22 H 12/17/22 07:56 BP 130/66 12/17/22 06:15 Pulse Ox 94 12/17/22 07:56 O2 Del Method Mechanical Ventilation 12/17/22 07:53 O2 Flow Rate 5 12/16/22 14:30 FiO2 30 12/17/22 07:56 12/16/22 12/17/22 12/17/22 22:59 06:59 14:59 Intake Total 796.906 / 3389.636 362.074 / 3751.710 Output Total 1867 / 1867 470 / 2337 Balance -1070.094 / 1522.636 -107.926 / 1414.710 Weight last 48 hrs Weight 43.091 kg Weight 43.091 kg Physical Exam Narrative: General exam sedated on the ventilator, chest tube output 437, 2400 up overall and volume HEENT: Endotracheal and orogastric tube noted Neck is supple no lymphadenopathy thyromegaly Cardiovascular regular rate and rhythm, no murmur. Lungs diminished breath sounds bilaterally. No wheezes or crackles Abdomen soft, bowel sounds are noted exam demonstrates Coffman with slight blood-tinged urine Extremities no cyanosis clubbing or edema, cap refill less than 2 seconds Skin no rash Neuro: Following some commands Urinary Catheter Management: Coffman: Cath Placed During This Visit: yes Reason for Continuing Indwelling Catheter: Accurate Measurement of Urinary Output in Critically Ill Patients Urinary Catheter Date of Insertion: 12/16/22 Urinary Catheter Time of Insertion: 14:02 Data 12/17/22 04:50 12/17/22 04:50 Other Labs: DIC panel positive as expected ABG demonstrates pH 7.38, PCO2 34, PO2 72 LFTs elevated with a bilirubin 1.6, AST 331, ALT 163, alk phos 148. Calcium is 8.0 and albumin 2.6 MRSA PCR pending Blood culture 1 of 3 bottles now growing gram-positive cocci Chest x-ray by my read demonstrates some fluid overload, left lower lobe atelectasis versus infiltrate, adequate tube placement. Awaiting radiology read. Stat echo yesterday demonstrated tamponade and large pericardial effusion with EF around 40% Micro: Microbiology 12/16/22 10:33 Blood Culture - Preliminary Blood 12/16/22 10:29 Blood Culture - Preliminary Blood A&P Assessment and plan (1) Sepsis: Patient presents to the hospital with sepsis, with concern for septic shock She presented to the emergency department on an epinephrine drip. Currently she is on a small dose of dopamine. Norepinephrine has not needed to be reinitiated. Currently on vancomycin and meropenem Likely source of infection is urinary 1 out of 3 blood cultures does not turn positive. We will repeat blood cultures tomorrow Awaiting urine culture There is also concern of possible pneumonia left lower lobe. Antibiotics will be sufficient for this. Check MRSA PCR, sputum culture. (2) Pericardial effusion: Patient with significant pericardial effusion, which could also cause hypotension. On CT, and echo there was concern for tamponade. She was taken emergently to the OR for drainage which was bloody and approximately 750 cc. She has con tinued to drain significant pericardial fluid. During initiation of anesthesia she lost a pulse and required approximately 1 round of CPR. She appears to be neurologically intact. Appreciate thoracic surgery consultation Etiology is concerning for metastatic bladder cancer which she is known to have Perfusion has improved significantly with treatment of sepsis as well as pericardial effusion. (3) Hyponatremia: She has significant hyponatremia. Etiology is not yet determined. She received dexamethasone on arrival to the emergency department TSH normal, cortisol level high Decrease IV cortisone, taper off if tolerated Sodium has improved. Changing fluids to take off bicarb drip that was needed for severe metabolic acidosis. Repeat BMP this afternoon. (4) Hyperkalemia: She has received significant hydration Potassium is now normal Bicarb drip was needed secondary to severe acidosis, likely causing hyperkalemia As her anion gap has improved substantially we will try to take off bicarbonate drip, repeating BMP this afternoon. (5) Thrombocytopenia: Platelet count last night was less than 50,000, with concerns of continued bloody drainage from her pericardium. Platelets were given and platelet count is 158,000 today. (6) UTI (urinary tract infection): Patient appears to have significant UTI. There is no evidence of obstruction. IV antibiotics consisting of vancomycin and meropenem Awaiting urine culture (7) INDRA (acute kidney injury): Patient with significant acute kidney injury. This appears to be improving Daily BMP (8) Hypotension: Patient initially hypotensive secondary to sepsis versus tamponade. Blood pressure currently improved on minor amount of dopamine (9) Transaminitis: Likely secondary to sepsis, elevation secondary to cardiac arrest. Repeat LFTs tomorrow. (10) Metastatic urothelial carcinoma: Patient appears to be on palliative chemotherapy. Last treatment around November 12 (11) Cardiac arrest: Status postcardiac arrest with induction. She required 2 minutes, 1 cycle, of CPR. She appears to be following direction and is likely neurologically intact. Continue to follow closely. (12) Acute respiratory failure: Patient with acute respiratory failure during cardiac arrest. She is intubated and sedated. We will try to work towards extubation tomorrow after adjustment of fluids and close clinical follow-up. Plan Anemia. She has received at least 2 units of packed red blood cells and has an adequate hemoglobin of 10.4 this morning. COPD. Continue Pulmicort, DuoNeb Multiple other medical problems as outlined in past medical history Full code SCDs for DVT prophylaxis. Anticoagulation currently contraindicated secondary to ongoing bloody pericardial drainage Will revisit whether anticoagulation is appropriate tomorrow. Attestations Medical Necessity Statement*: Needs continued hospital stay secondary to respiratory failure, multiorgan dy sfunction in this patient with sepsis and pericardial tamponade. Critical Care Time: The high probability of a clinically significant, sudden or life threatening deterioration of the patient's [cardiac, renal, hepatic, pulmonary, neurologic] system(s) required my full and direct attention, intervention and personal management. The critical care time is as shown. This time is in addition to time spent performing any reported procedures but includes the following: [x] Data and vital sign review and interpretation [x] Patient assessment, examination and intervention [x] Documentation [x] Medication orders and management Critical Care Time (min): 47 Coding Level of Care Code Critical Care >/= 30 minutes Critical care time (in minutes): 47 The high probability of a clinically significant, sudden or life threatening deterioration, as referenced in this documentation, required my full and direct attention, intervention and personal management. The critical care time shown is in addition to time spent performing any reported separately billable procedures and includes the following: [x] Data and vital sign review and interpretation [x ] Patient assessment, examination and intervention [x] Medication orders and management [x] Patient/Family updates as able [x] Care Coordination and Documentation. Diagnoses Sepsis A41.9 Pericardial effusion I31.39 Hyponatremia E87.1 Hyperkalemia E87.5 Thrombocytopenia D69.6 UTI (urinary tract infection) N39.0 INDRA (acute kidney injury) N17.9 Hypotension I95.9 Transaminitis R74.01 Metastatic urothelial carcinoma C79.10 Cardiac arrest I46.9 Acute respiratory failure J96.00
[2022-12-17] MEDS: sodium chloride 0.9% 1,000 ML 50 ML IV (08:39)
[2022-12-17] MEDS: pantoprazole 40 mg SDV IVP (08:40)
--- NOTE | 2022-12-17 09:04 | PM.PN ---
Subjective Subjective: Postop day #1 status post emergent pericardial window due to hemorrhagic pericardial tamponade with hemodynamic instability. Patient currently remains intubated and sedated though vital signs are stable and she is on now 3 mics per cake per minute of dopamine. Pericardial drain output 350 cc since return from the operating suite. Nurses report patient as awake and moving all extremities spontaneously and appropriately responding to commands. Nursing service reports Dr. Weaver has elected to have the patient remain intubated for another 24 hours. Chest x-ray is stable. There is a moderate gastric bubble. Vitals/I&O/Wt Last Vital Signs Temp 98.1 F 12/17/22 08:40 Pulse 97 12/17/22 08:40 Resp 22 H 12/17/22 08:40 BP 111/59 12/17/22 08:40 Pulse Ox 93 12/17/22 08:40 O2 Del Method Mechanical Ventilation 12/17/22 08:40 O2 Flow Rate 5 12/16/22 14:30 FiO2 30 12/17/22 08:40 12/16/22 12/17/22 12/17/22 22:59 06:59 14:59 Intake Total 796.906 / 3389.636 362.074 / 3751.710 1150 / 1150 Output Total 1867 / 1867 470 / 2337 Balance -1070.094 / 1522.636 -107.926 / 6179.604 7429 / 1150 Weight last 48 hrs Weight 95 lb Weight 95 lb Physical Exam Chest: OTHER: Chest wall is stable. Pericardial drain is in place. Surgical dressing is dry. Resp: OTHER: Basilar crackles but equal breath sounds bilaterally. Urinary Catheter Management: Coffman: Cath Placed During This Visit: yes Reason for Continuing Indwelling Catheter: Accurate Measurement of Urinary Output in Critically Ill Patients Urinary Catheter Date of Insertion: 12/16/22 Urinary Catheter Time of Insertion: 14:02 Data 12/17/22 04:50 12/17/22 04:50 Micro: Microbiology 12/16/22 10:32 Urine Culture - Preliminary Urine,Clean Catch Gram Negative Rods Gram Negative Rods#2 12/16/22 10:33 Blood Culture - Preliminary Blood 12/16/22 10:29 Blood Culture - Preliminary Blood A&P Assessment and plan (1) Pericardial effusion with cardiac tamponade: I recommend orogastric tube for gastric decompression. Continue supportive measures. I will leave pericardial drain in for now. Pericardium pathology specimen is pending. Attestations Medical Necessity Statement*: Status post subxiphoid pericardial window emergently due to cardiac tamponade with hemodynamic instability. Coding Level of Care Code Acute Code for Chg Fwd Diagnoses Pericardial effusion with cardiac tamponade I31.39; I31.4
--- NOTE | 2022-12-17 09:48 | XRR_ITS ---
PROCEDURE INFORMATION: Exam: XR Chest Exam date and time: 12/17/2022 9:59 AM Age: 62 years old Clinical indication: Device placement; Other: Og tube placement; Patient HX: HX of bladder cancer TECHNIQUE: Imaging protocol: Radiologic exam of the chest. Views: 1 view. COMPARISON: CR XR chest 1V portable [id number] 12/17/2022 6:45 AM FINDINGS: Tubes, catheters and devices: Endotracheal tube, nasogastric tube right IJ central venous catheter in place. The orogastric tube could be advanced. Lungs: Mild pulmonary vascular congestion. Pleural spaces: Unremarkable. No pleural effusion. No pneumothorax. Heart/Mediastinum: Cardiomegaly. Bones/joints: Unremarkable. XR/XR chest 1V portable [id number] IMPRESSION: 1. Orogastric tube is in the proximal stomach. This could be advanced. 2. Cardiomegaly with mild congestion.
[2022-12-17 15:08] LABS: Anion Gap 12.5 (5-19); Blood Urea Nitrogen 67 mg/dL (8-23); Calcium 7.5 mg/dL (8.5-10.5); Carbon Dioxide 30 mmol/L (22-29); Chloride 92 mmol/L (98-107); Glomerular Filtration Rate 28.6 mL/min (90-130); Glucose 81 mg/dL (65-115); Osmolality Calculated 290 mOsm/kg (285-295); Potassium 3.5 mmol/L (3.5-5.1); Sodium 131 mmol/L (136-145)
[2022-12-17 17:44] LABS: ABG PCO2 35.4 mmHg (35-45); Arterial Blood Gas Hematocrit 31.4 % (37-47); Base Excess ABG 4.3 mmol/L (-2.0-2.0); Blood Gas Sample Type Arterial; Carboxyhemoglobin 1.7 %THgb (0.4-20.1); HCO3 ABG 27.6 mmol/L (22-26); HGB O2 Sat 91.6 % (95-100); Methemoglobin 0.3 % (0.4-1.5); Oxygen Saturation ABG 93.5; Potassium Level - ABG 3.3 mmol/L (3.5-5.0); Total Hemoglobin 10.2 g/dL (12-16)
[2022-12-17 17:45] LABS: Alveolar-Arterial Oxygen Gradi 18.5 mmHg (5-10); Blood Gas Operator Identificat CAK; Blood Gas Tidal Volume 0.35; Oxygen Device VENT
--- NOTE | 2022-12-17 20:15 | PC.NURSE ---
Right Hand Upon assessment, patient's right hand cool in temperature, fingers and thumb purple in color, and no radial pulse able to be palpated or doppled. Furthermore, bruising noted on wrist and traveling up forearm. Right forearm IV in place with redness noted going above IV site; flush performed and blood return positive. Soft medical restraints remain on. Two fingers able to be placed under both restraints. Right brachial pulse present and palpable. Dr. Banks notified of findings. Order received for an arterial ultrasound. Right forearm IV removed. Bilateral dorsalis pedis pulses palpable +3.
--- NOTE | 2022-12-17 20:18 | USR_ITS ---
PROCEDURE INFORMATION: Exam: US Duplex Right Upper Extremity Arteries Exam date and time: 12/17/2022 8:43 PM Age: 62 years old Clinical indication: Other: Lack of right radial pulse with resultant blue thumb, cold right hand following arterial blood draw from right radial artery. Metastatic bladder CA patient. Note that radial /brachial index and ulnar / brachial index contraindicated in this patient, due to possible critical finding anticipated, which was confirmed. The right radial artery is normal through the mid right forearm, then color begins to wane, becomes difficult to follow, then jumps to 193 cm/second and signal disappears in distal right radial artery, which appears occluded from that point onward. The ulnar artery is the only vessel now supplying the palmar arch. Patient HX: Lack of right radial pulse with resultant blue thumb, cold right hand following arterial blood draw from right radial artery. Metastatic bladder CA patient. Note that radial /brachial index and ulnar / brachial index contraindicated in this patient, due to possible critical finding anticipated, which was confirmed. The right radial artery is normal through the mid right forearm, then color begins to wane, becomes difficult to follow, then jumps to 193 cm/second and signal disappears in distal right radial artery, which appears occluded from that point onward. The ulnar artery is the only vessel now supplying the palmar arch. ; Additional info: Lack of radial pulse TECHNIQUE: Imaging protocol: Right Real-time ultrasound scan of the arteries of the right upper extremity with 2-D akins scale, color Doppler flow and spectral waveform analysis. COMPARISON: CT angio headneck* [id number] 02/16/2020 8:40 PM FINDINGS: Right subclavian artery: No occlusion or significant stenosis. Normal waveform. Right axillary artery: No occlusion or significant stenosis. Normal waveform. Right brachial artery: No occlusion or significant stenosis. Normal waveform. Right radial artery: No flow is detected in the distal aspect of the right radial artery concerning for occlusion. Right ulnar artery: No occlusion or significant stenosis. Normal waveform. US/[place] [id number] IMPRESSION: No flow is detected in the distal aspect of the right radial artery concerning for occlusion. Consider evaluation with CTA or conventional angiography.
--- NOTE | 2022-12-17 20:53 | P.PNCC_ITS ---
Critical Care Event Note The high probability of a clinically significant, sudden or life threatening deterioration of the patient's [] system(s) required my full and direct attention, intervention and personal management. The critical care time is as shown. This time is in addition to time spent performing any reported procedures but includes the following: [x] Data and vital sign review and interpretation [x] Patient assessment, examination and intervention [x] Documentation [x] Medication orders and management Critical Care Time Code activated: No Critical Care Time (min): 35 Additional information about critical care time: I was notified by nursing staff that roughly at 830 nursing staff noticed that the right hand, 3 digits, were cool, clammy, had a dark dusky appearance, no radial pulse could be detected, brachial pulse could be detected, -Upon examination, patient has middle finger amputation -Her thumb, second digit, fourth digit will have a blue-black hue to them, minimal capillary refill, she is actually moving her right hand, she is wincing in pain, she appears to have some spasms of her right arm, and her right hand, right radial pulse cannot be palpated, ulnar pulses difficult to palpate, brachial pulses detected -Patient had ABG drawn for the right radial pulse at 4 AM, at 1733 patient also had another ABG site is not documented -I have ordered a stat right upper extremity ultrasound -Patient is in a hypercoagulable state, given patient's sepsis, elevated D- dimer, will order DIC panel, CBC, PTT -Start patient on a heparin drip -Keep right upper extremity wrapped in warm, avoid elevation -We will follow-up with ultrasound, continue to monitor closely -Concerns would be for radial artery occlusion and/or radial artery spasm Coding Level of Care Code Acute Code for Chg Fwd
[2022-12-17] MEDS: heparin drip 25,000 UNIT/500 ML PREMIX 12.07 UNIT IV (21:22)
--- NOTE | 2022-12-17 21:44 | PC.NURSE ---
Heparin bolus Dr. Banks contacted for verification of heparin bolus administration at initiation of drip. Order received to administer no initial bolus.
[2022-12-17 21:50] LABS: Basophils % 0.2 %; Hematocrit 31.5 % (36-47); Lymphocytes # 0.2 10^3/uL (0.8-4.8); Lymphocytes % 0.8 %; Mean Corpuscular HGB Conc 33.3 g/dL (30-55); Mean Corpuscular Hemoglobin 31.1 pg (27-33); Mean Corpuscular Volume 93.2 fl (85-98); Mean Platelet Volume 11.3 fL (7.4-10.4); Monocytes # 1.1 10^3/uL (0.2-0.9); Monocytes % 5.3 %; Neutrophils # 19.11 10^3/uL (1.8-7.7); Neutrophils % 92.7 %; Nucleated Red Blood Cells # 0.8 /100WBC; Platelet Count 69 10^3/cmm (157-399); Red Blood Count 3.38 10^6/uL (3.85-5.65); Red Cell Distribution Width 24.6 % (12.1-15.1); White Blood Count 20.62 10^3/uL (3.29-11.43)
[2022-12-17 22:05] LABS: Fibrinogen 216 mg/dL (174-498); Partial Thromboplastin Time 32.4 SECONDS (23.9-36.7)
[2022-12-17 22:23] LABS: D Dimer >= 20.00 ug/mLFEU (0-0.59)
[2022-12-17] MEDS: vancomycin 750 MG in sodium chloride 0.9% 250 ML 250 MG IV (23:35)
[2022-12-18] VITALS (104 sets, daily range): BP systolic 86–163; BP diastolic 46–99; PULSE 92–120; RESP 15–18; TEMP 36.6–37.3; O2SAT 91–98; BMI 20.8
--- NOTE | 2022-12-18 01:00 | PC.NURSE ---
Physician Communication On three separate occasions, patient's heart rhythm changed to a wide complex tachycardia for approximately 4 beats then returned to baseline. Dr. Banks notified; orders received to check a mag and a phos with morning labs. Dr. Banks also notified of platelet count being 69 on the CBC at 2143. Heparin drip administering; no new orders received.
[2022-12-18] MEDS: ipratropium-albuterol 3 mL Neb INHALATION ×4 (03:02→20:19)
[2022-12-18 03:14] LABS: ABG PCO2 37.7 mmHg (35-45); ABG PH Result 7.45 (7.35-7.45); Arterial Blood Gas Hematocrit 30.4 % (37-47); Base Excess ABG 2.4 mmol/L (-2.0-2.0); Blood Gas Sample Site Femoral, right; Blood Gas Sample Type Arterial; HCO3 ABG 26.4 mmol/L (22-26); PO2 ABG 69.2 mmHg (80.0-100.0)
[2022-12-18 03:15] LABS: Blood Gas Tidal Volume 0.35; Oxygen Device VENT
--- NOTE | 2022-12-18 03:16 | PC.RESP ---
12/18/2022 0316 AM ABG DRAWN FROM RIGHT FEMORAL ART LINE BY RN.
[2022-12-18] MEDS: meropenem 500 MG in sodium chloride 0.9% (plus) 50 ML 100 MG IV ×2 (03:29→16:18)
[2022-12-18] MEDS: chlorhexidine gluconate 4% Btl 118 mL 1 APPLIC TOPICAL (03:29)
[2022-12-18] MEDS: sodium chloride 0.9% 1,000 ML 50 ML IV ×2 (04:15→18:54)
[2022-12-18 04:25] LABS: Basophils # 0.1 10^3/uL (0.0-0.1); Basophils % 0.4 %; Hematocrit 32.3 % (36-47); Lymphocytes # 0.2 10^3/uL (0.8-4.8); Lymphocytes % 0.8 %; Mean Corpuscular HGB Conc 32.2 g/dL (30-55); Mean Corpuscular Hemoglobin 31.1 pg (27-33); Mean Corpuscular Volume 96.7 fl (85-98); Monocytes # 1.1 10^3/uL (0.2-0.9); Monocytes % 5.3 %; Neutrophils # 19.79 10^3/uL (1.8-7.7); Neutrophils % 91.4 %; Nucleated Red Blood Cells # 0.6 /100WBC; Nucleated Red Blood Cells % 2.8 %; Platelet Count 68 10^3/cmm (157-399); Red Blood Count 3.34 10^6/uL (3.85-5.65); Red Cell Distribution Width 24.7 % (12.1-15.1); White Blood Count 21.66 10^3/uL (3.29-11.43)
[2022-12-18 04:34] LABS: Partial Thromboplastin Time 42.7 SECONDS (23.9-36.7)
[2022-12-18 04:44] LABS: INR 1.38 (0.8-1.2)
[2022-12-18] MEDS: heparin 5,000 unit/mL INJ 1 mL IV (04:48)
[2022-12-18 04:50] LABS: Alanine Aminotransferase 135 U/L (0-33); Albumin Level 2.7 g/dL (3.5-5.2); Alkaline Phosphatase 141 U/L (35-105); Anion Gap 17.5 (5-19); Aspartate Amino Transferase 148 U/L (0-32); Blood Urea Nitrogen 63 mg/dL (8-23); Calcium 7.7 mg/dL (8.5-10.5); Carbon Dioxide 26 mmol/L (22-29); Chloride 93 mmol/L (98-107); Globulin 2.6 g/dL (1.3-4.6); Glomerular Filtration Rate 32.8 mL/min (90-130); Glucose 92 mg/dL (65-115); Osmolality Calculated 294 mOsm/kg (285-295); Potassium 3.5 mmol/L (3.5-5.1); Sodium 133 mmol/L (136-145); Total Protein 5.3 g/dL (6.6-8.7)
[2022-12-18 04:51] LABS: Phosphorus 4.3 mg/dL (2.5-4.5)
--- NOTE | 2022-12-18 07:00 | XRR_ITS ---
PROCEDURE INFORMATION: Exam: XR Chest Exam date and time: 12/18/2022 6:59 AM Age: 62 years old Clinical indication: Shortness of breath; Additional info: Resp failure TECHNIQUE: Imaging protocol: Radiologic exam of the chest. Views: 1 view. COMPARISON: CR XR chest 1V portable [id number] 12/17/2022 9:59 AM FINDINGS: Tubes, catheters and devices: Endotracheal tube, left Infusaport catheter, right IJ central venous catheter, and nasogastric tube are in place. Lungs: See Heart/Mediastinum finding. Pleural spaces: Small left pleural effusion. Heart/Mediastinum: Cardiomegaly with pulmonary vascular congestion/edema. Bones/joints: Unremarkable. XR/XR chest 1V portable [id number] IMPRESSION: 1. Cardiomegaly with mild congestion small pleural effusion. 2. Lines and tubes in stable position
[2022-12-18] MEDS: budesonide 0.5 mg/2 mL Neb INHALATION ×2 (07:25→20:19)
[2022-12-18] MEDS: valACYclovir 1,000 mg Tablet 1000 MG PO (08:44)
[2022-12-18] MEDS: pantoprazole 40 mg SDV IVP (08:44)
--- NOTE | 2022-12-18 09:59 | PM.CONSULT ---
Providers/Reason For Consult Consulting Physician/Specialty*: Jose Jeff MD/ Cardiology Reason for Consult*: Rule out endocarditis Requesting Physician: Dr Norman Attending Physician: Ciro Norman MD History of Present Illness History of Present Illness Skye Ambrose is a 62 year old female who is currently intubated. She had pericardial window performed for treatment of pericardial tamponade. Cardiology consulted for transesophageal echocardiogram as she has MRSA bacteremia. Review of Systems Narrative: Review of systems was not done due to the patient clinical condition Medications/Allergies Home Medications Medication Instructions Recorded Confirmed Last Taken Type artifi.tears(hypromellose)(PF) 0.3 1 drp ophthalmic (eye) DAILY PRN 03/20/22 12/16/22 06/11/22 History % eye drops right eye albuterol sulfate 2.5 mg/3 mL 2.5 mg (3 mL) inhalation Q4H PRN 04/02/22 12/16/22 06/12/22 07:00 Rx (0.083 %) solution for nebulization shortness of breath or wheezing #300 mL albuterol sulfate 90 mcg/actuation 2 puff inhalation Q6H PRN 04/02/22 12/16/22 12/16/22 Rx aerosol inhaler (ProAir HFA) shortness of breath or wheezing #18 grams epinephrine 0.3 mg/0.3 mL 0.3 mg (0.3 mL) IM Q10M PRN 04/02/22 12/16/22 04/15/22 Rx injection, auto-injector (EpiPen) anaphylaxis #1 ea fluticasone propionate 50 2 spray intranasal DAILY #16 grams 04/02/22 12/16/22 06/11/22 Rx mcg/actuation nasal spray,suspension (Allergy Relief (fluticasone)) furosemide 40 mg tablet 80 mg PO DAILY #60 tabs 04/02/22 12/16/22 3 Days Ago Rx ~12/13/22 lidocaine 5 % topical patch 1 patch topical DAILY PRN pain #30 04/02/22 12/16/22 06/04/22 Rx ea potassium chloride 40 mEq/15 mL 40 meq (15 mL) PO DAILY #450 mL 04/02/22 12/16/22 1 Day Ago Rx oral liquid ~09/04/22 valacyclovir 1 gram tablet 1,000 mg PO DAILY 30 days #30 tabs 04/02/22 12/16/22 1 Day Ago Rx ~09/04/22 docusate sodium 100 mg capsule 100 mg PO BID PRN Constipation 08/29/22 12/16/22 Unknown History (DOK) nystatin 100,000 unit/mL oral 5 ml PO TID PRN unknown 10/22/22 12/16/22 Unknown History suspension oxycodone 5 mg tablet 5 mg PO Q8H PRN pain 30 days #30 11/07/22 12/16/22 Unknown Rx tabs oxycodone 10 mg tablet,crush 10 mg PO BID 7 days #14 tabs 11/15/22 12/16/22 12/15/22 Rx resistant,extended release 12 hr (OxyContin) ondansetron 4 mg disintegrating 4 mg PO TID #90 tabs 12/13/22 12/16/22 Unknown Rx tablet budesonide 0.5 mg/2 mL suspension 0.5 mg inhalation BID PRN unknown 12/16/22 12/16/22 Unknown History for nebulization (Pulmicort) erdafitinib 4 mg tablet 8 mg PO DAILY #42 tabs 12/16/22 Unknown Rx lidocaine-prilocaine 2.5 %-2.5 % See Rx Instructions .Route .COMPLEX 12/16/22 12/16/22 Unknown History topical cream megestrol 400 mg/10 mL (10 mL) 200 mg PO BID PRN unknown 12/16/22 12/16/22 Unknown History oral suspension Allergies Allergy/AdvReac Type Severity Reaction Status Date / Time ceftriaxone [From Rocephin] Allergy Severe ALGY-Anaphy Verified 12/16/22 10:01 laxis cephalexin [From Keflex] Allergy Severe ALGY-Anaphy Verified 12/16/22 10:01 laxis eszopiclone [Lunesta] Allergy Severe ADR-Agitate Verified 12/16/22 10:01 d zaleplon [From Sonata] Allergy Severe ADR-Halluci Verified 12/16/22 10:01 nating zolpidem [From Ambien] Allergy Severe ADR-Halluci Verified 12/16/22 10:01 nating dextromethorphan Allergy Intermediate ADR-Halluci Verified 12/16/22 10:01 nating Iodinated Contrast Media Allergy UNK Verified 12/16/22 10:01 ketoprofen Allergy Unknown Verified 12/16/22 10:01 ketorolac [From Toradol] Allergy UNK Verified 12/16/22 10:01 mirtazapine [From Remeron] Allergy UNK Verified 12/16/22 10:01 nitrofurantoin Allergy UNK Verified 12/16/22 10:01 [From Macrobid] rofecoxib [From Vioxx] Allergy UNK Verified 12/16/22 10:01 sulfamethoxazole Allergy UNK Verified 12/16/22 10:01 [From Bactrim] sumatriptan [From Imitrex] Allergy UNK Verified 12/16/22 10:01 trimethoprim [From Bactrim] Allergy UNK Verified 12/16/22 10:01 Current Medications Generic Name Dose Route Start Last Admin Trade Name Freq PRN Reason Stop Dose Admin Albuterol/Ipratropium 3 ml 12/17/22 14:00 12/18/22 07:25 Ipratropium-Albuterol 3 Ml Neb INHALATION 3 ml Q6H.RESP JENNIFER Administration Budesonide 0.5 mg 12/16/22 20:00 12/18/22 07:25 Budesonide 0.5 Mg/2 Ml Neb INHALATION 0.5 mg BID.RESPIRATORY JENNIFER Administration Chlorhexidine Gluconate 1 applic 12/18/22 03:15 12/18/22 03:29 Chlorhexidine Gluconate 4% Btl 118 Ml TOPICAL 1 applic Q24H JENNIFER Administration Heparin Sodium (Porcine) 0 unit 12/17/22 20:50 12/18/22 04:48 Heparin 5,000 Unit/Ml Inj 1 Ml IV 1,800 unit PRN PRN Administration Heparin weight-base protocol Protocol Vancomycin HCl 750 mg/ Sodium 250 mls @ 250 mls/hr 12/17/22 23:00 12/18/22 01:44 Chloride IV Infused Q36H JENNIFER Infusion Protocol Meropenem 500 mg/ Sodium 50 mls @ 100 mls/hr 12/16/22 16:00 12/18/22 04:27 Chloride IV Infused Q12H JENNIFER Infusion Protocol Propofol 1,000 mg in 100 mls @ 0 mls/hr 12/16/22 16:15 12/18/22 04:27 Diprivan IV 10 mcg/kg/min .Q0M JENNIFER 2.59 mls/hr Titration Protocol Per Protocol Fentanyl 2,500 mcg/ Sodium 250 mls @ 0 mls/hr 12/16/22 16:15 12/18/22 03:00 Chloride IV 150 mcg/hr .Q0M JENNIFER 15 mls/hr Titration Protocol Per Protocol Dopamine HCl/Dextrose 400 mg in 250 mls @ 4.848 mls/hr 12/16/22 16:36 12/17/22 04:10 Intropin Drip IV 3 mcg/kg/min CONT JENNIFER 4.85 mls/hr Administration Protocol 3 MCG/KG/MIN Sodium Chloride 1,000 mls @ 50 mls/hr 12/17/22 07:45 12/18/22 04:15 Sodium Chloride 0.9% IV 50 mls/hr .Q20H JENNIFER Administration Heparin Sodium/Sodium Chloride 25,000 unit in 500 mls @ 0 mls/hr 12/17/22 21:00 12/18/22 04:48 Heparin Drip IV 16.24 unit/kg/hr .Q0M JENNIFER 14 mls/hr Titration Protocol Per Protocol Pantoprazole Sodium 40 mg 12/17/22 09:00 12/18/22 08:44 Pantoprazole 40 Mg Sdv IVP 40 mg DAILY JENNIFER Administration Valacyclovir HCl 1,000 mg 12/18/22 09:00 12/18/22 08:44 Valacyclovir 1,000 Mg Tablet PO 1,000 mg DAILY JENNIFER Administration PFSH Acute PFSH: Medical History Allergy to iodine Anemia Anxiety, generalized Bladder cancer CAD (coronary artery disease) Chronic post-traumatic stress disorder (PTSD) COPD (chronic obstructive pulmonary disease) Hypertension Lumbar radiculopathy, chronic Metastatic urothelial carcinoma Pericardial effusion without cardiac tamponade Port-A-Cath in place Post herpetic neuralgia Pyelonephritis Urinary tract infection UTI (urinary tract infection) Vitamin D insufficiency Surgical History History of abdominoplasty History of bladder surgery History of breast augmentation Saline History of heart artery stent 2 stents September 2013 History of tubal ligation Family History Sister Diabetes Brother Diabetes Denies family history of Bleeding disorder Social History Smoking and tobacco/nicotine status: current every day tobacco/nicotine user cigarettes Packs smoked per day: 1 Years cigarettes smoked: 45 Second hand smoke exposure: Yes Alcohol intake: unknown Substance/Drug Use: unknown Adopted: No Caregiver/support person: No Lives independently: Yes Household members: spouse Marital status: Number of children: 5 service: No Do you think of yourself as: Straight/Heterosexual Current gender identity: Female Vitals/I&O/Wt Last Vital Signs Temp 97.8 F 12/18/22 07:30 Pulse 103 H 12/18/22 09:00 Resp 16 12/18/22 09:36 BP 147/82 12/18/22 09:00 Pulse Ox 97 12/18/22 09:36 O2 Del Method Mechanical Ventilation 12/18/22 09:00 O2 Flow Rate 5 12/16/22 14:30 FiO2 35 12/18/22 09:36 12/17/22 12/18/22 12/18/22 22:59 06:59 14:59 Intake Total 226.250 / 3609.540 8714.558 / 2864.946 0 / 0 Output Total 1270 / 1270 505 / 1775 Balance -1043.750 / 143.388 946.558 / 1089.946 0 / 0 Weight last 48 hrs Weight 110 lb 3.698 oz Weight 95 lb Weight 95 lb Physical Exam Narrative: GENERAL: Patient is intubated and sedated NECK: No jugular vein distension. [] HEENT: No cyanosis. No icterus. No pallor. [] HEART: Regular S1 and S2. No murmur, rub or gallop. [] LUNGS: Diminished air entry bilaterally CENTRAL NERVOUS SYSTEM: Grossly nonfocal. [] EXTREMITIES: Lower extremities with 1+ edema bilaterally. Urinary Catheter Management: Coffman: Cath Placed During This Visit: yes Reason for Continuing Indwelling Catheter: Accurate Measurement of Urinary Output in Critically Ill Patients Urinary Catheter Date of Insertion: 12/16/22 Urinary Catheter Time of Insertion: 14:02 Data 12/31/22 04:34 12/31/22 04:34 Micro: Microbiology 12/18/22 06:47 Blood Culture - Preliminary Blood SPECIMEN COLLECTED 12/18/22 06:43 Blood Culture - Preliminary Blood SPECIMEN COLLECTED 12/16/22 10:29 Blood Culture - Preliminary Blood Methicillin Resis Staph Aureus 12/16/22 18:30 Gram Stain - Final Sputum - Endotracheal Tube Aspirate 12/16/22 10:32 Urine Culture - Preliminary Urine,Clean Catch Gram Negative Rods Gram Negative Rods#2 A&P Assessment and plan (1) MRSA bacteremia: Plan We will proceed with a transesophageal echocardiogram while she is intubated to rule out endocarditis. She has MRSA bacteremia. Consent obtained from family. Risks and benefits of the procedure discussed in detail. Thank you for involving us with care of this patient. We will continue to follow. Please call with questions. Consult Attestations Medical Necessity Statement: Care expected to cross 2 midnights. Coding Level of Care Code Acute Code for [facility] Diagnoses MRSA bacteremia R78.81; B95.62
--- NOTE | 2022-12-18 09:59 | W.PM.OPSUD ---
Surgery/Procedure H&P Update DATE OF PROCEDURE: December 18, 2022 DATE H&P PERFORMED: 12/18/22 H&P UPDATE INFORMATION: I have reviewed H&P completed within last 30 days, I have examined patient prior to procedure and No changes to prior documentation PREOP DIAGNOSIS: MRSA bacteremia PRIMARY INDICATION FOR PROCEDURE: MRSA bacteremia PLANNED PROCEDURE: Operation Date: 12/18/22 Proposed Procedures Transesophageal echocardiogram, Jose Jeff MD Patient is intubated and sedated PATIENT REASSESSED PRIOR TO SEDATION, WITH NO CHANGE NOTED: Yes AIRWAY EVAL/ANESTHESIA PLAN: Risks, benefits & alternatives of sedation and/or procedure discussed ADDITIONAL INFORMATION: Consent obtained from patient's .
--- NOTE | 2022-12-18 10:00 | USCV_ITS ---
Floridalmarohit Skye Age: 62 Gender: F : 1960 Exam Date: 12/18/2022 10:11 Ordering Phys: Jose Jeff M.D ([email or web address]) Technologist: CHAGO [place] [facility] [place]: Bactermia BP: 134 / 91 HR: Rhythm: Sinus Technical Quality: Adequate MEASUREMENTS (Male / Female) Normal Values Medications Complications None Proc. Components After patient was sedated, we advanced the FRANCIS probe and obtained images FINDINGS Left Ventricle LV systolic function is mildly reduced. Right Ventricle Normal in size and function Right Atrium Normal in size Left Atrium Grossly normal LA Appendage No left atrial appendage thrombus seen IA Septum Normal Mitral Valve Structurally normal mitral valve. No significant stenosis or regurgitation. No evidence of vegetation Aortic Valve Structurally normal aortic valve. No evidence of vegetation Tricuspid Valve No vegetation seen Pulmonic Valve No vegetation seen Pericardium Grossly normal Aorta Not well visualized CONCLUSIONS LV systolic function is mildly reduced. No vegetations seen Jose Jeff MD (Electronically Signed) Final Date: 19 December 2022 09:34 S
--- NOTE | 2022-12-18 10:05 | PC.NURSE ---
Propofol increased as shown in MAR per Dr. Jeff verbal order at bedside for FRANCIS.
--- NOTE | 2022-12-18 10:11 | P.CONIM_ITS ---
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 It appears to me that she has been she has been on on treatment with weekly carboplatin, gemcitabine and pembrolizumab si nce August 2022 until October 08, 2022. Thereafter she has remained on gemcitabine and carboplatin with ertafitinib. Currently she presented to the hospital on December 16, 2022 with 1 day of increasing shortness of breath chills and nausea. She was septic upon admission and required to be placed on pressor support right away. Empiric antibiotics were started with vancomycin and meropenem while undergoing sepsis source evaluation. She was also additionally found to have a pericardial effusion with cardiac tamponade. Of note she has been noted to have pericardial effusion dating back to August 2022 which appears to have increased in size over time. She went to the OR urgently on December 16 and underwent pericardial window. 750 cc of bloody pericardial effusion was drained. Pericardial biopsy was sent to pathology. Cultures are not available from this day. Likely from the tamponade and required CPR. Patient has remained intubated post procedure. He suffered cardiac arrest during surgery thereafter further work-up has revealed blood cultures positive for MRSA. Patient had evidence of DIC upon admission. Hospital course has further been complicated by right radial artery thrombus which may have been the site of past ABG draws. Review of Systems General: Reports: ROS unobtainable due to medical condition Medications/Allergies Home Medications Medication Instructions Recorded Confirmed Last Taken Type artifi.tears(hypromellose)(PF) 0.3 1 drp ophthalmic (eye) DAILY PRN 03/20/22 12/16/22 06/11/22 History % eye drops right eye albuterol sulfate 2.5 mg/3 mL 2.5 mg (3 mL) inhalation Q4H PRN 04/02/22 12/16/22 06/12/22 07:00 Rx (0.083 %) solution for nebulization shortness of breath or wheezing #300 mL albuterol sulfate 90 mcg/actuation 2 puff inhalation Q6H PRN 04/02/22 12/16/22 12/16/22 Rx aerosol inhaler (ProAir HFA) shortness of breath or wheezing #18 grams epinephrine 0.3 mg/0.3 mL 0.3 mg (0.3 mL) IM Q10M PRN 04/02/22 12/16/22 04/15/22 Rx injection, auto-injector (EpiPen) anaphylaxis #1 ea fluticasone propionate 50 2 spray intranasal DAILY #16 grams 04/02/22 12/16/22 06/11/22 Rx mcg/actuation nasal spray,suspension (Allergy Relief (fluticasone)) furosemide 40 mg tablet 80 mg PO DAILY #60 tabs 04/02/22 12/16/22 3 Days Ago Rx ~12/13/22 lidocaine 5 % topical patch 1 patch topical DAILY PRN pain #30 04/02/22 12/16/22 06/04/22 Rx ea potassium chloride 40 mEq/15 mL 40 meq (15 mL) PO DAILY #450 mL 04/02/22 12/16/22 1 Day Ago Rx oral liquid ~09/04/22 valacyclovir 1 gram tablet 1,000 mg PO DAILY 30 days #30 tabs 04/02/22 12/16/22 1 Day Ago Rx ~09/04/22 docusate sodium 100 mg capsule 100 mg PO BID PRN Constipation 08/29/22 12/16/22 Unknown History (DOK) nystatin 100,000 unit/mL oral 5 ml PO TID PRN unknown 10/22/22 12/16/22 Unknown History suspension oxycodone 5 mg tablet 5 mg PO Q8H PRN pain 30 days #30 11/07/22 12/16/22 Unknown Rx tabs oxycodone 10 mg tablet,crush 10 mg PO BID 7 days #14 tabs 11/15/22 12/16/22 12/15/22 Rx resistant,extended release 12 hr (OxyContin) ondansetron 4 mg disintegrating 4 mg PO TID #90 tabs 12/13/22 12/16/22 Unknown Rx tablet budesonide 0.5 mg/2 mL suspension 0.5 mg inhalation BID PRN unknown 12/16/22 12/16/22 Unknown History for nebulization (Pulmicort) erdafitinib 4 mg tablet 8 mg PO DAILY #42 tabs 12/16/22 Unknown Rx lidocaine-prilocaine 2.5 %-2.5 % See Rx Instructions .Route .COMPLEX 12/16/22 12/16/22 Unknown History topical cream megestrol 400 mg/10 mL (10 mL) 200 mg PO BID PRN unknown 12/16/22 12/16/22 Unknown History oral suspension Allergies Allergy/AdvReac Type Severity Reaction Status Date / Time ceftriaxone [From Rocephin] Allergy Severe ALGY-Anaphy Verified 12/16/22 10:01 laxis cephalexin [From Keflex] Allergy Severe ALGY-Anaphy Verified 12/16/22 10:01 laxis eszopiclone [Lunesta] Allergy Severe ADR-Agitate Verified 12/16/22 10:01 d zaleplon [From Sonata] Allergy Severe ADR-Halluci Verified 12/16/22 10:01 nating zolpidem [From Ambien] Allergy Severe ADR-Halluci Verified 12/16/22 10:01 nating dextromethorphan Allergy Intermediate ADR-Halluci Verified 12/16/22 10:01 nating Iodinated Contrast Media Allergy UNK Verified 12/16/22 10:01 ketoprofen Allergy Unknown Verified 12/16/22 10:01 ketorolac [From Toradol] Allergy UNK Verified 12/16/22 10:01 mirtazapine [From Remeron] Allergy UNK Verified 12/16/22 10:01 nitrofurantoin Allergy UNK Verified 12/16/22 10:01 [From Macrobid] rofecoxib [From Vioxx] Allergy UNK Verified 12/16/22 10:01 sulfamethoxazole Allergy UNK Verified 12/16/22 10:01 [From Bactrim] sumatriptan [From Imitrex] Allergy UNK Verified 12/16/22 10:01 trimethoprim [From Bactrim] Allergy UNK Verified 12/16/22 10:01 Current Medications Generic Name Dose Route Start Last Admin Trade Name Freq PRN Reason Stop Dose Admin Albuterol/Ipratropium 3 ml 12/17/22 14:00 12/18/22 07:25 Ipratropium-Albuterol 3 Ml Neb INHALATION 3 ml Q6H.RESP JENNIFER Administration Budesonide 0.5 mg 12/16/22 20:00 12/18/22 07:25 Budesonide 0.5 Mg/2 Ml Neb INHALATION 0.5 mg BID.RESPIRATORY JENNIFER Administration Chlorhexidine Gluconate 1 applic 12/18/22 03:15 12/18/22 03:29 Chlorhexidine Gluconate 4% Btl 118 Ml TOPICAL 1 applic Q24H JENNIFER Administration Heparin Sodium (Porcine) 0 unit 12/17/22 20:50 12/18/22 04:48 Heparin 5,000 Unit/Ml Inj 1 Ml IV 1,800 unit PRN PRN Administration Heparin weight-base protocol Protocol Vancomycin HCl 750 mg/ Sodium 250 mls @ 250 mls/hr 12/17/22 23:00 12/18/22 01:44 Chloride IV Infused Q36H JENNIFER Infusion Protocol Meropenem 500 mg/ Sodium 50 mls @ 100 mls/hr 12/16/22 16:00 12/18/22 04:27 Chloride IV Infused Q12H JENNIFER Infusion Protocol Propofol 1,000 mg in 100 mls @ 0 mls/hr 12/16/22 16:15 12/18/22 10:05 Diprivan IV 40 mcg/kg/min .Q0M JENNIFER 10.34 mls/hr Titration Protocol Per Protocol Fentanyl 2,500 mcg/ Sodium 250 mls @ 0 mls/hr 12/16/22 16:15 12/18/22 10:05 Chloride IV 200 mcg/hr .Q0M JENNIFER 20 mls/hr Titration Protocol Per Protocol Dopamine HCl/Dextrose 400 mg in 250 mls @ 4.848 mls/hr 12/16/22 16:36 12/17/22 04:10 Intropin Drip IV 3 mcg/kg/min CONT JENNIFER 4.85 mls/hr Administration Protocol 3 MCG/KG/MIN Sodium Chloride 1,000 mls @ 50 mls/hr 12/17/22 07:45 12/18/22 04:15 Sodium Chloride 0.9% IV 50 mls/hr .Q20H JENNIFER Administration Heparin Sodium/Sodium Chloride 25,000 unit in 500 mls @ 0 mls/hr 12/17/22 21:00 12/18/22 04:48 Heparin Drip IV 16.24 unit/kg/hr .Q0M JENNIFER 14 mls/hr Titration Protocol Per Protocol Pantoprazole Sodium 40 mg 12/17/22 09:00 12/18/22 08:44 Pantoprazole 40 Mg Sdv IVP 40 mg DAILY JENNIFER Administration Valacyclovir HCl 1,000 mg 12/18/22 09:00 12/18/22 08:44 Valacyclovir 1,000 Mg Tablet PO 1,000 mg DAILY JENNIFER Administration PFSH Acute PFSH: Medical History Allergy to iodine Anemia Anxiety, generalized Bladder cancer CAD (coronary artery disease) Chronic post-traumatic stress disorder (PTSD) COPD (chronic obstructive pulmonary disease) Hypertension Lumbar radiculopathy, chronic Metastatic urothelial carcinoma Pericardial effusion without cardiac tamponade Port-A-Cath in place Post herpetic neuralgia Pyelonephritis Urinary tract infection UTI (urinary tract infection) Vitamin D insufficiency Surgical History History of abdominoplasty History of bladder surgery History of breast augmentation Saline History of heart artery stent 2 stents September 2013 History of tubal ligation Family History Sister Diabetes Brother Diabetes Denies family history of Bleeding disorder Social History Smoking and tobacco status: current every day smoker cigarettes Packs smoked per day: 1 Years cigarettes smoked: 45 Second hand smoke exposure: Yes Smoking risk assessment/counseling performed?: Yes Alcohol intake: unknown Desire information about alcohol rehabilitation?: No Counseling given: No Substance/Drug Use: unknown Desire information about substance/drug rehabilitation?: No Counseling given: No Adopted: No Caregiver/support person: No Lives independently: Yes Household members: spouse Marital status: Number of children: 5 service: No Do you think of yourself as: Straight/Heterosexual Current gender identity: Female Vitals/I&O/Wt Last Vital Signs Temp 97.8 F 12/18/22 07:30 Pulse 103 H 12/18/22 09:00 Resp 16 12/18/22 09:36 BP 147/82 12/18/22 09:00 Pulse Ox 97 12/18/22 09:36 O2 Del Method Mechanical Ventilation 12/18/22 09:00 O2 Flow Rate 5 12/16/22 14:30 FiO2 35 12/18/22 09:36 12/17/22 12/18/22 12/18/22 22:59 06:59 14:59 Intake Total 226.250 / 6443.761 1973.558 / 2864.946 120.84 / 120.84 Output Total 1270 / 1270 505 / 1775 Balance -1043.750 / 143.388 946.558 / 1089.946 120.84 / 120.84 Weight last 48 hrs Weight 50 kg Weight 43.091 kg Weight 43.091 kg Physical Exam Narrative: General: Intubated, sedated HEENT: PERRLA, pupils bilaterally equal and reactive, pallors not present Chest: Pericardial window dressing in place, not open for exam CVS: S1-S2 regular, no murmurs, no tachycardia, no gallops, no rubs Abdomen: Soft, nontender, no organomegaly, bowel sounds present Neuro: Intubated, sedated tubes/lines: ETT , OG, pericardial drain, CVC Urinary Catheter Management: Coffman: Cath Placed During This Visit: yes Reason for Continuing Indwelling Catheter: Accurate Measurement of Urinary Output in Critically Ill Patients Urinary Catheter Date of Insertion: 12/16/22 Urinary Catheter Time of Insertion: 14:02 Data 12/18/22 04:05 12/18/22 04:05 Micro: Microbiology 12/18/22 06:47 Blood Culture - Preliminary Blood SPECIMEN COLLECTED 12/18/22 06:43 Blood Culture - Preliminary Blood SPECIMEN COLLECTED 12/16/22 10:29 Blood Culture - Preliminary Blood Methicillin Resis Staph Aureus pending susceptibility 12/16/22 18:30 Gram Stain - Final Sputum - Endotracheal Tube Aspirate 12/16/22 10:32 Urine Culture - Preliminary Urine,Clean Catch Gram Negative Rods Gram Negative Rods#2 pending identification Other data: Procedure(s): [place] [id number] US/[place] [id number] IMPRESSION: No flow is detected in the distal aspect of the right radial artery concerning for occlusion.? Consider evaluation with CTA or conventional angiography. ? XR/XR chest 1V portable [id number] IMPRESSION: 1. ? Orogastric tube is in the proximal stomach. This could be advanced. 2. ? Cardiomegaly with mild congestion. Date of Service: 12/16/22 Procedure(s): CT kidney stone [id number] IMPRESSION: 1.? Markedly enlarged pericardial effusion measuring 4 cm in short axis dimension. Recommend correlation for cardiac tamponade. This is progressed compared to the prior studies. 2.? Small bilateral pleural effusions with suspected LEFT lower lobe pneumonia. 3.? Diffuse body wall anasarca with a small amount of free fluid in the pelvis. 4.? No hydronephrosis in either kidney. 5.? 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 6.? Previously described FDG avid metastasis in the L5 vertebral body. 7.? Stable abdominal aortic aneurysm. [id number] Accession Number(s): [id number] [id number] IMPRESSION: In comparison with 08/24/2022 there are mixed changes with overall stable burden of disease. Metastatic lymphadenopathy in the chest, retroperitoneum and the pelvis shows mild partial response currently with the highest uptake of 6.6 SUV versus 9 SUV on the prior exam. There is mild partial response within uterine metastasis. Unfortunately, there are new FDG avid bone metastases with the highest uptake of 9.2 SUV. There is new mild left hydronephrosis and hydroureter. Currently there is no right hydronephrosis with only mild hydroureter.? Moderate right hydronephrosis noted on 09/06/2022 has resolved. Pericardial effusion increased from mild to moderate with no abnormal pericardial uptake. A&P Assessment and plan (1) MRSA (methicillin resistant Staphylococcus aureus) septicemia: Patient with known bladder cancer status post transurethral resection of the bladder tumor in January 2022, thereafter found to have metastatic lymphadenopa thy in chest retroperitoneum and pelvis and bony metastases as of most recent PET scan in 11/2022. Currently on treatment with carboplatin/gemcitabine, previously on pembrolizumab, now on kinase inhibitors. Presenting to the hospital with sepsis, shock likely a combination of septic shock plus cardiogenic shock from pericardial tamponade, DIC with hospital course complicated by cardiac arrest intraoperatively while undergoing pericardial window, status post ROSC, now currently in the ICU intubated and sedated. Blood cultures during course of admission positive for MRSA from December 16, 2022. Susceptibility is pending. Cultures taken this morning to a certain clearance. Currently patient is on treatment with empiric meropenem and vancomycin. Vancomycin to continue for MRSA bacteremia Meropenem to continue given presence of gram-negative rods in the urine awaiting further identification Previously patient noted to have moderate right hydronephrosis and also mild left hydroureter, however on the most recent CT KUB on December 16, 2022, there is no evidence of hydronephrosis in either kidney. Agree with FRANCIS as happening today to evaluate for endocarditis Recommend to remove Mediport given MRSA bacteremia. Currently patient is on dopamine infusion @3mcg (2) Acute respiratory failure: Currently intubated and sedated, management per primary (3) Cardiac arrest: Likely related to pericardial tamponade (4) Pericardial effusion with cardiac tamponade: Etiology unclear at this time. Review of prior imaging and notes reveals that pericardial effusion has been slowly increasing since August 2022. Possible cause of pericardial effusion may be malignant versus infectious versus autoimmune from pembrolizumab. Biopsy is pending. Unfortunately no culture data is available from OR. We will request special stains from pathology if able to be added on now. 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
[2022-12-18 11:08] LABS: Partial Thromboplastin Time 82.7 SECONDS (23.9-36.7)
--- NOTE | 2022-12-18 11:41 | P.PN_ITS ---
Subjective Subjective: Events of last night noted. Patient placed on heparin drip and concern of thrombus right radial artery. Ulnar is patent. Patient is awake on the ventilator, wanting to communicate but this is difficult. Medications: Reviewed: Yes Vitals/I&O/Wt Last Vital Signs Temp 97.8 F 12/18/22 07:30 Pulse 103 H 12/18/22 09:00 Resp 16 12/18/22 09:36 BP 147/82 12/18/22 09:00 Pulse Ox 97 12/18/22 09:36 O2 Del Method Mechanical Ventilation 12/18/22 09:00 O2 Flow Rate 5 12/16/22 14:30 FiO2 35 12/18/22 09:36 12/17/22 12/18/22 12/18/22 22:59 06:59 14:59 Intake Total 226.250 / 7163.695 6806.558 / 2864.946 236.819 / 236.819 Output Total 1270 / 1270 505 / 1775 Balance -1043.750 / 143.388 946.558 / 1089.946 236.819 / 236.819 Weight last 48 hrs Weight 50 kg Weight 43.091 kg Weight 43.091 kg Physical Exam Narrative: General exam sedated on the ventilator, easily HEENT: Endotracheal and orogastric tube noted Neck is supple no lymphadenopathy thyromegaly Cardiovascular regular rate and rhythm, no murmur. Chest tube noted Lungs diminished breath sounds bilaterally. No wheezes or crackles Abdomen soft, bowel sounds are noted exam demonstrates Coffman with slight blood-tinged urine Extremities no extraordinary cyanosis clubbing or edema. Right upper extremity with cyanotic right hand especially side of thumb. Cap refill impaired. Skin no rash Neuro: Follows all commands Urinary Catheter Management: Coffman: Cath Placed During This Visit: yes Reason for Continuing Indwelling Catheter: Accurate Measurement of Urinary Output in Critically Ill Patients Urinary Catheter Date of Insertion: 12/16/22 Urinary Catheter Time of Insertion: 14:02 Data 12/18/22 04:05 12/18/22 04:05 Other Labs: Chest x-ray with appearance of fluid overload stable Micro: Microbiology 12/16/22 10:32 Urine Culture - Preliminary Urine,Clean Catch Gram Negative Rods Gram Negative Rods#2 12/18/22 06:47 Blood Culture - Preliminary Blood SPECIMEN COLLECTED 12/18/22 06:43 Blood Culture - Preliminary Blood SPECIMEN COLLECTED 12/16/22 10:29 Blood Culture - Preliminary Blood Methicillin Resis Staph Aureus 12/16/22 18:30 Gram Stain - Final Sputum - Endotracheal Tube Aspirate A&P Assessment and plan (1) Sepsis: Patient presents to the hospital with sepsis, with concern for septic shock She presented to the emergency department on an epinephrine drip. Currently she is on a small dose of dopamine. Norepinephrine has not needed to be reinitiated. Currently on vancomycin and meropenem Urine is growing 2 colonies of gram-negative rods, yet to be identified 3 out of 3 blood cultures MRSA positive. Repeat cultures are pending. There is also concern of possible pneumonia left lower lobe. Antibiotics will be sufficient for this. FRANCIS performed today demonstrates no evidence of endocarditis Port in left chest will be removed today. (2) Pericardial effusion: Patient with significant pericardial effusion, which could also cause hypotension. On CT, and echo there was concern for tamponade. She was taken emergently to the OR for drainage which was bloody and approximately 750 cc. She has currently still has placement of drain. During initiation of anesthesia she lost a pulse and required approximately 1 round of CPR. She appears to be neurologically intact. Appreciate thoracic surgery consultation Etiology is concerning for metastatic bladder cancer which she is known to have, but cannot completely exclude infection or even effect of Keytruda. Visited with oncology and they would prefer she be kept on steroids currently if okay with infectious disease. Overall perfusion has improved significantly with treatment of sepsis as well as pericardial effusion. (3) Hyponatremia: She has significant hyponatremia. Etiology is not yet determined. She received dexamethasone on arrival to the emergency department TSH normal, cortisol level high This has resolved (4) Hyperkalemia: Resolved (5) Thrombocytopenia: Low but stable, secondary to DIC (6) UTI (urinary tract infection): Patient appears to have significant UTI. There is no evidence of obstruction. IV antibiotics consisting of vancomycin and meropenem Awaiting urine culture, growing gram-negative stacie (7) INDRA (acute kidney injury): Patient with significant acute kidney injury. Continues to improve Daily BMP (8) Hypotension: Patient initially hypotensive secondary to sepsis versus tamponade. Blood pressure currently improved on minor amount of dopamine (9) Transaminitis: Likely secondary to sepsis, elevation secondary to cardiac arrest. LFTs improving (10) Metastatic urothelial carcinoma: Patient appears to be on palliative chemotherapy. Last treatment around November 12 (11) Cardiac arrest: Status postcardiac arrest with induction. She required 2 minutes, 1 cycle, of CPR. She appears to be following direction and is likely neurologically intact. Continue to follow closely. (12) Acute respiratory failure: Patient with acute respiratory failure during cardiac arrest. She is intubated and sedated. Will extubate once procedures are done. I have obtained a FRANCIS today, and plan on taking her port out later on this afternoon. We will put her through a weaning trial after that, and consider extubation tomorrow Plan Anemia. She has received at least 2 units of packed red blood cells on December 16 and hemoglobin is stable Right radial artery thrombus. Heparin drip. Continued monitoring. COPD. Continue Pulmicort, DuoNeb Multiple other medical problems as outlined in past medical history Full code Heparin will suffice for DVT prophylaxis Attestations Medical Necessity Statement*: Needs continued hospital stay secondary to multiorgan failure with sepsis and bacteremia in this patient with respiratory failure Critical Care Time: The high probability of a clinically significant, sudden or life threatening deterioration of the patient's [pulmonary, infectious disease, renal, hepatic, vascular] system(s) required my full and direct attention, intervention and personal management. The critical care time is as shown. This time is in addition to time spent performing any reported procedures but includes the following: [x] Data and vital sign review and interpretation [x] Patient assessment, examination and intervention [x] Documentation [x] Medication orders and management Critical Care Time (min): 67 Coding Level of Care Code Critical Care >/= 30 minutes Critical care time (in minutes): 67 The high probability of a clinically significant, sudden or life threatening deterioration, as referenced in this documentation, required my full and direct attention, intervention and personal management. The critical care time shown is in addition to time spent performing any reported separately billable procedures and includes the following: [x] Data and vital sign review and interpretation [x ] Patient assessment, examination and intervention [x] Medication orders and management [x] Patient/Family updates as able [x] Care Coordination and Documentation. Diagnoses Sepsis A41.9 Pericardial effusion I31.39 Hyponatremia E87.1 Hyperkalemia E87.5 Thrombocytopenia D69.6 UTI (urinary tract infection) N39.0 INDRA (acute kidney injury) N17.9 Hypotension I95.9 Transaminitis R74.01 Metastatic urothelial carcinoma C79.10 Cardiac arrest I46.9 Acute respiratory failure J96.00
--- NOTE | 2022-12-18 12:08 | PM.CONSULT ---
Providers/Reason For Consult Consulting Physician/Specialty*: General surgery Reason for Consult*: Need for removal of Port-A-Cath Attending Physician: Ciro Norman MD History of Present Illness History of Present Illness Skye Ambrose is a 62 year old female who was admitted to the intensive care unit after a pericardial window for cardiac tamponade, which was complicated with intraoperative code requiring chest compressions and resulting on return of spontaneous circulation. Patient is in critical condition in the ICU, I have been consulted after several blood cultures show evidence of bacteremia, patient has an implanted port on the left chest that needs to be removed due to these findings. Review of Systems Narrative: Review of systems was not done due to the patient clinical condition Medications/Allergies Home Medications Medication Instructions Recorded Confirmed Last Taken Type artifi.tears(hypromellose)(PF) 0.3 1 drp ophthalmic (eye) DAILY PRN 03/20/22 12/16/22 06/11/22 History % eye drops right eye albuterol sulfate 2.5 mg/3 mL 2.5 mg (3 mL) inhalation Q4H PRN 04/02/22 12/16/22 06/12/22 07:00 Rx (0.083 %) solution for nebulization shortness of breath or wheezing #300 mL albuterol sulfate 90 mcg/actuation 2 puff inhalation Q6H PRN 04/02/22 12/16/22 12/16/22 Rx aerosol inhaler (ProAir HFA) shortness of breath or wheezing #18 grams epinephrine 0.3 mg/0.3 mL 0.3 mg (0.3 mL) IM Q10M PRN 04/02/22 12/16/22 04/15/22 Rx injection, auto-injector (EpiPen) anaphylaxis #1 ea fluticasone propionate 50 2 spray intranasal DAILY #16 grams 04/02/22 12/16/22 06/11/22 Rx mcg/actuation nasal spray,suspension (Allergy Relief (fluticasone)) furosemide 40 mg tablet 80 mg PO DAILY #60 tabs 04/02/22 12/16/22 3 Days Ago Rx ~12/13/22 lidocaine 5 % topical patch 1 patch topical DAILY PRN pain #30 04/02/22 12/16/22 06/04/22 Rx ea potassium chloride 40 mEq/15 mL 40 meq (15 mL) PO DAILY #450 mL 04/02/22 12/16/22 1 Day Ago Rx oral liquid ~09/04/22 valacyclovir 1 gram tablet 1,000 mg PO DAILY 30 days #30 tabs 04/02/22 12/16/22 1 Day Ago Rx ~09/04/22 docusate sodium 100 mg capsule 100 mg PO BID PRN Constipation 08/29/22 12/16/22 Unknown History (DOK) nystatin 100,000 unit/mL oral 5 ml PO TID PRN unknown 10/22/22 12/16/22 Unknown History suspension oxycodone 5 mg tablet 5 mg PO Q8H PRN pain 30 days #30 11/07/22 12/16/22 Unknown Rx tabs oxycodone 10 mg tablet,crush 10 mg PO BID 7 days #14 tabs 11/15/22 12/16/22 12/15/22 Rx resistant,extended release 12 hr (OxyContin) ondansetron 4 mg disintegrating 4 mg PO TID #90 tabs 12/13/22 12/16/22 Unknown Rx tablet budesonide 0.5 mg/2 mL suspension 0.5 mg inhalation BID PRN unknown 12/16/22 12/16/22 Unknown History for nebulization (Pulmicort) erdafitinib 4 mg tablet 8 mg PO DAILY #42 tabs 12/16/22 Unknown Rx lidocaine-prilocaine 2.5 %-2.5 % See Rx Instructions .Route .COMPLEX 12/16/22 12/16/22 Unknown History topical cream megestrol 400 mg/10 mL (10 mL) 200 mg PO BID PRN unknown 12/16/22 12/16/22 Unknown History oral suspension Allergies Allergy/AdvReac Type Severity Reaction Status Date / Time ceftriaxone [From Rocephin] Allergy Severe ALGY-Anaphy Verified 12/16/22 10:01 laxis cephalexin [From Keflex] Allergy Severe ALGY-Anaphy Verified 12/16/22 10:01 laxis eszopiclone [Lunesta] Allergy Severe ADR-Agitate Verified 12/16/22 10:01 d zaleplon [From Sonata] Allergy Severe ADR-Halluci Verified 12/16/22 10:01 nating zolpidem [From Ambien] Allergy Severe ADR-Halluci Verified 12/16/22 10:01 nating dextromethorphan Allergy Intermediate ADR-Halluci Verified 12/16/22 10:01 nating Iodinated Contrast Media Allergy UNK Verified 12/16/22 10:01 ketoprofen Allergy Unknown Verified 12/16/22 10:01 ketorolac [From Toradol] Allergy UNK Verified 12/16/22 10:01 mirtazapine [From Remeron] Allergy UNK Verified 12/16/22 10:01 nitrofurantoin Allergy UNK Verified 12/16/22 10:01 [From Macrobid] rofecoxib [From Vioxx] Allergy UNK Verified 12/16/22 10:01 sulfamethoxazole Allergy UNK Verified 12/16/22 10:01 [From Bactrim] sumatriptan [From Imitrex] Allergy UNK Verified 12/16/22 10:01 trimethoprim [From Bactrim] Allergy UNK Verified 12/16/22 10:01 Current Medications Generic Name Dose Route Start Last Admin Trade Name Freq PRN Reason Stop Dose Admin Albuterol/Ipratropium 3 ml 12/17/22 14:00 12/18/22 07:25 Ipratropium-Albuterol 3 Ml Neb INHALATION 3 ml Q6H.RESP JENNIFER Administration Budesonide 0.5 mg 12/16/22 20:00 12/18/22 07:25 Budesonide 0.5 Mg/2 Ml Neb INHALATION 0.5 mg BID.RESPIRATORY JENNIFER Administration Chlorhexidine Gluconate 1 applic 12/18/22 03:15 12/18/22 03:29 Chlorhexidine Gluconate 4% Btl 118 Ml TOPICAL 1 applic Q24H JENNIFER Administration Heparin Sodium (Porcine) 0 unit 12/17/22 20:50 12/18/22 04:48 Heparin 5,000 Unit/Ml Inj 1 Ml IV 1,800 unit PRN PRN Administration Heparin weight-base protocol Protocol Vancomycin HCl 750 mg/ Sodium 250 mls @ 250 mls/hr 12/17/22 23:00 12/18/22 01:44 Chloride IV Infused Q36H JENNIFER Infusion Protocol Meropenem 500 mg/ Sodium 50 mls @ 100 mls/hr 12/16/22 16:00 12/18/22 04:27 Chloride IV Infused Q12H JENNIFER Infusion Protocol Propofol 1,000 mg in 100 mls @ 0 mls/hr 12/16/22 16:15 12/18/22 11:02 Diprivan IV 20 mcg/kg/min .Q0M JENNIFER 5.17 mls/hr Titration Protocol Per Protocol Fentanyl 2,500 mcg/ Sodium 250 mls @ 0 mls/hr 12/16/22 16:15 12/18/22 11:02 Chloride IV 125 mcg/hr .Q0M JENNIFER 12.5 mls/hr Titration Protocol Per Protocol Dopamine HCl/Dextrose 400 mg in 250 mls @ 4.848 mls/hr 12/16/22 16:36 12/17/22 04:10 Intropin Drip IV 3 mcg/kg/min CONT JENNIFER 4.85 mls/hr Administration Protocol 3 MCG/KG/MIN Sodium Chloride 1,000 mls @ 50 mls/hr 12/17/22 07:45 12/18/22 04:15 Sodium Chloride 0.9% IV 50 mls/hr .Q20H JENNIFER Administration Heparin Sodium/Sodium Chloride 25,000 unit in 500 mls @ 0 mls/hr 12/17/22 21:00 12/18/22 12:03 Heparin Drip IV 0 unit/kg/hr .Q0M JENNIFER 0 mls/hr Titration Protocol Per Protocol Pantoprazole Sodium 40 mg 12/17/22 09:00 12/18/22 08:44 Pantoprazole 40 Mg Sdv IVP 40 mg DAILY JENNIFER Administration Valacyclovir HCl 1,000 mg 12/18/22 09:00 12/18/22 08:44 Valacyclovir 1,000 Mg Tablet PO 1,000 mg DAILY JENNIFER Administration PFSH Acute PFSH: Medical History Allergy to iodine Anemia Anxiety, generalized Bladder cancer CAD (coronary artery disease) Chronic post-traumatic stress disorder (PTSD) COPD (chronic obstructive pulmonary disease) Hypertension Lumbar radiculopathy, chronic Metastatic urothelial carcinoma Pericardial effusion without cardiac tamponade Port-A-Cath in place Post herpetic neuralgia Pyelonephritis Urinary tract infection UTI (urinary tract infection) Vitamin D insufficiency Surgical History History of abdominoplasty History of bladder surgery History of breast augmentation Saline History of heart artery stent 2 stents September 2013 History of tubal ligation Family History Sister Diabetes Brother Diabetes Denies family history of Bleeding disorder Social History Smoking and tobacco status: current every day smoker cigarettes Packs smoked per day: 1 Years cigarettes smoked: 45 Second hand smoke exposure: Yes Smoking risk assessment/counseling performed?: Yes Alcohol intake: unknown Desire information about alcohol rehabilitation?: No Counseling given: No Substance/Drug Use: unknown Desire information about substance/drug rehabilitation?: No Counseling given: No Adopted: No Caregiver/support person: No Lives independently: Yes Household members: spouse Marital status: Number of children: 5 service: No Do you think of yourself as: Straight/Heterosexual Current gender identity: Female Vitals/I&O/Wt Last Vital Signs Temp 98.6 F 12/18/22 11:45 Pulse 97 12/18/22 11:45 Resp 17 12/18/22 11:51 BP 117/75 12/18/22 11:45 Pulse Ox 94 12/18/22 11:51 O2 Del Method Mechanical Ventilation 12/18/22 11:45 O2 Flow Rate 5 12/16/22 14:30 FiO2 35 12/18/22 11:51 12/17/22 12/18/22 12/18/22 22:59 06:59 14:59 Intake Total 226.250 / 6272.158 3125.558 / 2864.946 243.319 / 243.319 Output Total 1270 / 1270 505 / 1775 Balance -1043.750 / 143.388 946.558 / 1089.946 243.319 / 243.319 Weight last 48 hrs Weight 110 lb 3.698 oz Weight 95 lb Weight 95 lb Physical Exam Narrative: Patient was intubated and sedated during my evaluation, on multiple drips including pressors Chest: OTHER: On the left chest there is an implanted port, port can be felt below the level of the skin, there is mild erosion into the skin without complete exposure Urinary Catheter Management: Coffman: Cath Placed During This Visit: yes Reason for Continuing Indwelling Catheter: Accurate Measurement of Urinary Output in Critically Ill Patients Urinary Catheter Date of Insertion: 12/16/22 Urinary Catheter Time of Insertion: 14:02 Data 12/18/22 04:05 12/18/22 04:05 Micro: Microbiology 12/16/22 10:32 Urine Culture - Preliminary Urine,Clean Catch Gram Negative Rods Gram Negative Rods#2 12/18/22 06:47 Blood Culture - Preliminary Blood SPECIMEN COLLECTED 12/18/22 06:43 Blood Culture - Preliminary Blood SPECIMEN COLLECTED 12/16/22 10:29 Blood Culture - Preliminary Blood Methicillin Resis Staph Aureus 12/16/22 18:30 Gram Stain - Final Sputum - Endotracheal Tube Aspirate A&P Assessment and plan (1) Cardiac arrest: (2) Pericardial effusion with cardiac tamponade: (3) Bladder cancer: (4) Port-A-Cath in place: After complete history physical examination and review of all available clinical data the following is my assessment. I agree with primary team plan of Port-A-Cath removal due to MRSA bacteremia. I have talked to the patient's and explained all the risk and benefits of the operation, I have informed the that even for a simple procedure like a port removal, patient is at extreme risk of intraoperative complications including , she is at risk of major bleeding from the subclavian vein and she will require heparin drip after for removal, she is at the risks of persistent infection and drainage from the wound, poor wound healing, need for additional operations, need for vascular interventions. Patient's acknowledges the risks and wishes to proceed. After anesthesia evaluation with plan to remove the port this afternoon. Coding Level of Care Code Acute Code for [facility] Diagnoses Cardiac arrest I46.9 Pericardial effusion with cardiac tamponade I31.39; I31.4 Bladder cancer C67.9 Port-A-Cath in place Z95.828
[2022-12-18] MEDS: methylPREDNISolone sod succ 60 MG in water for injection-sterile 0.96 ML 11.52 MG IVP (12:43)
[2022-12-18] MEDS: propofol 1,000 MG/100 ML INJ 3.88 MG IV (13:31)
[2022-12-18] MEDS: lidocaine-epi 2% 20 mL INJ INJECTION (15:23)
--- NOTE | 2022-12-18 15:49 | P.OP_ITS ---
Operative Report Date of procedure: December 18, 2022 Pre-op diagnosis: MRSA Bacteremia Post-op diagnosis: MRSA Bacteremia Procedure done: Excision of left upper chest port a cath. Specimens removed/disposition: Port a cath Surgeon: Rudy Peres MD Machine Operations Supervisor: TERESE OR Staff Estimated blood loss: 15 Complications: none Findings: left subclavian port-a-cath with skin erosion Brief History: Is a 62-year-old female with history of bladder cancer for which she had a left subclavian Port-A-Cath placed. She presented to the hospital with bacteremia and cardiac tamponade, she was taken to the OR for pericardial window after which she had a episode of asystole requiring chest compressions. Patient in the ICU in critical condition, I have been asked to remove her Port-A-Cath due to MRSA bacteremia. After lengthy discussion with the regarding risk and benefits and extremely high risk of developing complications. The patient has been Decided to proceed. Procedure: Procedure done in the ICU due to patient critical condition. Patient was placed in the supine position, anesthesia was administered by anesthesia provider. The left chest was prepped and draped in the usual sterile fashion. Timeout was conducted. I then made a 2.5 cm incision over the area corresponding to the port on the left upper chest, this area was noted to be excoriated with a small area of erosion, I excised that erosion from the skin. The incision was deepened until the port was identified, the port was delivered through the wound using an Allis clamp, I then proceeded to remove the catheter from the subclavian vein, pressure was held at the level of the subclavian vein to prevent bleeding. After the catheter was removed it was sent to pathology for culture. I then placed 3 [id number] sutures on the tract of the catheter, to achieve hemostasis. Electrocautery was then used to achieve hemostasis on the wound. The wound was closed in layers using #3-0 Vicryl for the subcutaneo us tissue and #3-0 nylon for the skin, 0.5 cm opening was left in the middle of the wound to allow for packing. The wound was packed with quarter inch packing strip. Sterile dressing was applied. Over the sterile dressing and a compressive dressing was applied to ensure hemostasis. Patient tolerated the procedure, remain in the ICU in critical condition after the completion of the procedure. At the end of the procedure all counts were correct.
--- NOTE | 2022-12-18 16:04 | PC.NURSE ---
Into room at 1505 Patient prepped using chloraprep, draped in sterile fashion. Bovie pad placed on patient's left thigh. Skin clean and intact prior to placement and after. Time out performed at 1521. Procedure start at 1523. Procedure end at 1543. Initial and final counts correct and Dr. Peres notified of correct counts. Dressing to site 4x4's, tegaderm, then pressure dressing with 4x4's and foam tape.
[2022-12-18] MEDS: DOPamine drip 400 MG/250 ML PREMIX IV (16:40)
--- NOTE | 2022-12-18 16:40 | PM.PN ---
Subjective Subjective: Postop day #2 status post urgent subxiphoid pericardial window for cardiac tamponade with hemodynamic instability. Apparently, despite right femoral arterial line which I placed at the time of surgery, patient had arterial blood gases being performed through the right wrist and developed acute ischemic changes to the thumb, index finger and a small portion of the long finger distally. Ultrasound confirmed occlusion of the distal radial artery though the pulm artery is intact including brisk flow in the ulnar artery. Patient been placed on anticoagulation. There is modest improvement in the right hand. Pericardial drain output is 100 cc of serosanguineous fluid over the past 24 hours. Hemodynamically stable with mild sinus tachycardia. No malignant arrhythmias reported. Patient is arousable and neurologically intact and following commands. Ventilator weaning has been continued and now with minimal settings. Today's chest x-ray reveals decreased cardiac silhouette consistent with pericardial drainage. There is mild bilateral lower hemispheric congestion consistent with probable modest volume overload related to acute resuscitation during presentation. Vitals/I&O/Wt Last Vital Signs Temp 99.1 F 12/18/22 16:00 Pulse 101 H 12/18/22 16:00 Resp 15 12/18/22 13:50 BP 137/73 12/18/22 16:00 Pulse Ox 92 12/18/22 16:00 O2 Del Method Mechanical Ventilation 12/18/22 16:00 O2 Flow Rate 5 12/16/22 14:30 FiO2 35 12/18/22 13:50 12/18/22 12/18/22 12/18/22 06:59 14:59 22:59 Intake Total 1451.558 / 2864.946 257.118 / 257.118 253.356 / 510.474 Output Total 505 / 1775 350 / 350 Balance 946.558 / 1089.946 -92.882 / -92.882 253.356 / 160.474 Weight last 48 hrs Weight 110 lb 3.698 oz Weight 95 lb Weight 95 lb Physical Exam Chest: OTHER: Chest wall is stable. Surgical dressing remains in place. Resp: COMMON NORMALS: clear to auscultation bilaterally AUSCULTATION: clear to auscultation bilaterally OTHER: Mild basilar crackles. Patient remains orally intubated. Orogastric tube is in place and gastric bubble is evacuated. Cardio: COMMON NORMALS: regular rhythm and S1 normal heart sound present RHYTHM: regular rhythm HEART SOUNDS: S1 normal heart sound present OTHER: Mild tachycardia GI: AUSCULTATION: Yes Hypoactive bowel sounds present Urinary Catheter Management: Coffman: Cath Placed During This Visit: yes Reason for Continuing Indwelling Catheter: Accurate Measurement of Urinary Output in Critically Ill Patients Urinary Catheter Date of Insertion: 12/16/22 Urinary Catheter Time of Insertion: 14:02 Data 12/18/22 04:05 12/18/22 04:05 Micro: Microbiology 12/16/22 18:30 Gram Stain - Final Sputum - Endotracheal Tube Aspirate Sputum Culture - Preliminary 12/16/22 10:32 Urine Culture - Preliminary Urine,Clean Catch Gram Negative Rods Gram Negative Rods#2 12/18/22 06:47 Blood Culture - Preliminary Blood SPECIMEN COLLECTED 12/18/22 06:43 Blood Culture - Preliminary Blood SPECIMEN COLLECTED 12/16/22 10:29 Blood Culture - Preliminary Blood Methicillin Resis Staph Aureus A&P Assessment and plan (1) Pericardial effusion with cardiac tamponade: Postop day #2 status post subxiphoid pericardial window urgently for cardiac tamponade with hemodynamic instability. Pericardial drain output is decreasing. Ischemia of right hand secondary to probable radial artery catheterization for ABGs, improving Plan: I will confer with my colleague Dr. Norman. Tentative plan is for extubation tomorrow. I would recommend consideration for diuresis related to probably recollection of third spaced fluid during fluid resuscitation upon presentation. I recommend leaving pericardial drain in for now. Attestations Medical Necessity Statement*: Postop day #2 status post subxiphoid pericardial window for cardiac tamponade Coding Level of Care Code Acute Code for [facility] Diagnoses Pericardial effusion with cardiac tamponade I31.39; I31.4
--- NOTE | 2022-12-18 19:41 | PC.NURSE ---
Addendum entered by Grace Youngblood RN 12/18/22 19:52: Hemostats @bedside @1950. Original Note: Hemostats: Billet Driller notified of need for hemostats @bedside for ICU 12 @1940.
[2022-12-19] VITALS (96 sets, daily range): BP systolic 83–160; BP diastolic 56–102; PULSE 88–119; RESP 10–26; TEMP 36.4–37.4; O2SAT 84–98
[2022-12-19] MEDS: heparin 5,000 unit/mL INJ 1 mL IV (00:44)
[2022-12-19 01:24] LABS: Glucose Point of Care 100 mg/dL (70-110)
[2022-12-19] MEDS: ipratropium-albuterol 3 mL Neb INHALATION ×3 (01:46→13:10)
[2022-12-19] MEDS: chlorhexidine gluconate 4% Btl 118 mL 1 APPLIC TOPICAL (04:05)
[2022-12-19] MEDS: meropenem 500 MG in sodium chloride 0.9% (plus) 50 ML 100 MG IV ×2 (04:21→15:40)
[2022-12-19 04:26] LABS: Basophils % 0.2 %; Hematocrit 29.3 % (36-47); Lymphocytes # 0.2 10^3/uL (0.8-4.8); Lymphocytes % 0.8 %; Mean Corpuscular HGB Conc 32.1 g/dL (30-55); Mean Corpuscular Hemoglobin 31.3 pg (27-33); Mean Corpuscular Volume 97.7 fl (85-98); Monocytes # 1.1 10^3/uL (0.2-0.9); Monocytes % 5.6 %; Neutrophils # 18.17 10^3/uL (1.8-7.7); Neutrophils % 90.8 %; Nucleated Red Blood Cells # 0.1 /100WBC; Nucleated Red Blood Cells % 0.7 %; Platelet Count 32 10^3/cmm (157-399); Red Cell Distribution Width 25.1 % (12.1-15.1)
[2022-12-19 04:42] LABS: ABG PCO2 43.7 mmHg (35-45); ABG PH Result 7.38 (7.35-7.45); Arterial Blood Gas Hematocrit 28.8 % (37-47); Base Excess ABG 0.6 mmol/L (-2.0-2.0); Blood Gas Operator Identificat JB; Blood Gas Sample Site Not specified; Blood Gas Sample Type Arterial; Blood Gas Tidal Volume 0.35; HCO3 ABG 25.9 mmol/L (22-26); Oxygen Device VENT; PO2 ABG 83.3 mmHg (80.0-100.0)
[2022-12-19 04:51] LABS: Alanine Aminotransferase 96 U/L (0-33); Albumin Level 2.7 g/dL (3.5-5.2); Alkaline Phosphatase 128 U/L (35-105); Anion Gap 15.5 (5-19); Aspartate Amino Transferase 83 U/L (0-32); Blood Urea Nitrogen 56 mg/dL (8-23); Calcium 7.9 mg/dL (8.5-10.5); Carbon Dioxide 25 mmol/L (22-29); Chloride 98 mmol/L (98-107); Globulin 2.5 g/dL (1.3-4.6); Glomerular Filtration Rate 38.2 mL/min (90-130); Glucose 102 mg/dL (65-115); Magnesium 2.1 mg/dL (1.7-2.3); Osmolality Calculated 296 mOsm/kg (285-295); Potassium 3.5 mmol/L (3.5-5.1); Sodium 135 mmol/L (136-145); Total Bilirubin 1.9 mg/dL (0.15-1.2); Total Protein 5.2 g/dL (6.6-8.7)
--- NOTE | 2022-12-19 06:35 | PM.PN ---
Subjective Subjective: Postop day #3 status post subxiphoid pericardial window. Dr. Fonseca removed the Port-A-Cath yesterday afternoon. Uneventful night. Hemodynamically stable. No arrhythmias except for occasional PVC. Pericardial drain output approximate 55 cc past 24 hours. Ischemic changes to right hand are modestly improved. Laboratory data reviewed this morning. Platelet count is down to 32,000. BUN and creatinine have improved. WBC is 20,000. There is no immediate chest x-ray available for this morning. Vitals/I&O/Wt Last Vital Signs Temp 99.0 F 12/19/22 06:00 Pulse 96 12/19/22 06:00 Resp 16 12/19/22 06:00 BP 110/89 12/19/22 06:00 Pulse Ox 94 12/19/22 06:00 O2 Del Method Mechanical Ventilation 12/19/22 06:00 O2 Flow Rate 5 12/16/22 14:30 FiO2 35 12/19/22 06:00 12/18/22 12/18/22 12/19/22 14:59 22:59 06:59 Intake Total 257.118 / 998.900 5213.226 / 1624.344 737.043 / 2361.387 Output Total 350 / 350 330 / 680 325 / 1005 Balance -92.882 / -92.882 1037.226 / 944.344 412.043 / 1356.387 Weight last 48 hrs Weight 114 lb 6.4 oz Weight 110 lb 3.698 oz Weight 95 lb Physical Exam Chest: OTHER: Surgical dressings remain in place. These will be changed today. Pericardial drain remains in place. Urinary Catheter Management: Coffman: Cath Placed During This Visit: yes Reason for Continuing Indwelling Catheter: Accurate Measurement of Urinary Output in Critically Ill Patients Urinary Catheter Date of Insertion: 12/16/22 Urinary Catheter Time of Insertion: 14:02 Data 12/19/22 04:15 12/19/22 04:15 Micro: Microbiology 12/16/22 18:30 Gram Stain - Final Sputum - Endotracheal Tube Aspirate Sputum Culture - Preliminary 12/16/22 10:32 Urine Culture - Preliminary Urine,Clean Catch Gram Negative Rods Gram Negative Rods#2 12/18/22 06:47 Blood Culture - Preliminary Blood SPECIMEN COLLECTED 12/18/22 06:43 Blood Culture - Preliminary Blood SPECIMEN COLLECTED A&P Assessment and plan (1) Pericardial effusion with cardiac tamponade: Postop day #3 status post subxiphoid pericardial window urgently for hemodynamic collapse from cardiac tamponade. Plan: I would leave the pericardial drain in place until the patient is successfully extubated and able to be upright for complete drainage confirmation of low drain output. Attestations Medical Necessity Statement*: Cardiac tamponade from large hemorrhagic pericardial effusion; status post subxiphoid pericardial window Coding Level of Care Code Acute Code for [facility] Diagnoses Pericardial effusion with cardiac tamponade I31.39; I31.4
--- NOTE | 2022-12-19 07:00 | XR_ITS ---
WS: [id number] EXAMINATION: XR chest 1V portable [id number] REASON FOR EXAM: resp failure COMPARISON: 12/18/2022 ORDER DATE: 12/19/2022 7:00 AM TECHNIQUE: A single, portable frontal chest x-ray was obtained. X-RAY FINDINGS: Left Port-A-Cath catheter, right IJ central venous catheter, and nasogastric tube are in place. Lungs: Diffuse opacity in the right perihilum extending into the right lung base similar to previous retrocardiac increased density Pleural spaces: Small left pleural effusion. Heart/Mediastinum: Cardiomegaly with pulmonary vascular congestion/edema. Bones/joints: Unremarkable. IMPRESSION: 1. Cardiomegaly with mild congestion small pleural effusion. 2. Pulmonary findings similar to previous with the difference perhaps related to technique or positio fariha
[2022-12-19 07:29] LABS: Partial Thromboplastin Time 69.3 SECONDS (23.9-36.7)
[2022-12-19] MEDS: budesonide 0.5 mg/2 mL Neb INHALATION (07:30)
[2022-12-19] MEDS: FUROsemide 10 mg/mL SDV 2mL 20 MG IVP (07:43)
--- NOTE | 2022-12-19 08:35 | P.PN_ITS ---
Subjective Subjective: Skye awakens to verbal stimuli. She is sedated on the ventilator. Medications: Reviewed: Yes Vitals/I&O/Wt Last Vital Signs Temp 99.0 F 12/19/22 06:00 Pulse 106 H 12/19/22 07:31 Resp 16 12/19/22 07:36 BP 110/89 12/19/22 06:00 Pulse Ox 95 12/19/22 07:36 O2 Del Method Mechanical Ventilation 12/19/22 07:31 O2 Flow Rate 5 12/16/22 14:30 FiO2 35 12/19/22 07:36 12/18/22 12/19/22 12/19/22 22:59 06:59 14:59 Intake Total 1367.226 / 1624.344 744.210 / 2368.554 137.215 / 137.215 Output Total 330 / 680 325 / 1005 Balance 1037.226 / 944.344 419.210 / 1363.554 137.215 / 137.215 Weight last 48 hrs Weight 51.891 kg Weight 50 kg Weight 43.091 kg Physical Exam Narrative: General exam sedated on the ventilator, easily awakened HEENT: Endotracheal and orogastric tube noted Neck is supple no lymphadenopathy thyromegaly Cardiovascular regular rate and rhythm, no murmur. Chest tube noted Lungs diminished breath sounds bilaterally. No wheezes or crackles Abdomen soft, bowel sounds are noted Extremities no extraordinary cyanosis clubbing or edema. Right upper extremity with cyanotic right hand especially side of thumb. Cap refill impaired., Significantly improved from yesterday. Skin no rash Neuro: Follows all commands Urinary Catheter Management: Coffman: Cath Placed During This Visit: yes Reason for Continuing Indwelling Catheter: Accurate Measurement of Urinary Output in Critically Ill Patients Urinary Catheter Date of Insertion: 12/16/22 Urinary Catheter Time of Insertion: 14:02 Data 12/19/22 04:15 12/19/22 04:15 Other Labs: Chest x-ray reviewed by me. Infiltrate/edema right lung. Tubes okay Micro: Microbiology 12/18/22 06:47 Blood Culture - Preliminary Blood NEGATIVE TO DATE 12/18/22 06:43 Blood Culture - Preliminary Blood NEGATIVE TO DATE 12/16/22 18:30 Gram Stain - Final Sputum - Endotracheal Tube Aspirate Sputum Culture - Preliminary 12/16/22 10:32 Urine Culture - Preliminary Urine,Clean Catch Gram Negative Rods Gram Negative Rods#2 A&P Assessment and plan (1) Sepsis: Patient presents to the hospital with sepsis, with concern for septic shock She presented to the emergency department on an epinephrine drip. Currently she is on a small dose of dopamine. Norepinephrine has not needed to be reinitiated. Dopamine will be discontinued. Currently on vancomycin and meropenem Urine is growing 2 colonies of gram-negative rods, yet to be identified. Continuing meropenem 3 out of 3 blood cultures MRSA positive. Repeat cultures are pending. Continuing vancomycin. Appreciate infectious disease consultation. Port removed yesterday. FRANCIS demonstrated no obvious endocarditis. There is also concern of possible pneumonia left lower lobe. Antibiotics will be sufficient for this. FRANCIS performed today demonstrates no evidence of endocarditis Port in left chest will be removed today. (2) Pericardial effusion: Patient with significant pericardial effusion, which could also cause hypotension. On CT, and echo there was concern for tamponade. She was taken emergently to the OR for drainage which was bloody and approximately 750 cc. She has currently still has placement of drain. During initiation of anesthesia she lost a pulse and required approximately 1 round of CPR. She appears to be neurologically intact. Appreciate thoracic surgery consultation Etiology is concerning for metastatic bladder cancer which she is known to have, but cannot completely exclude infection or even effect of Keytruda. Visited with oncology and they would prefer she be kept on steroids currently if okay with infectious disease. Placed on Solu-Medrol 60 mg IV every 24 hours Overall perfusion has improved significantly with treatment of sepsis as well as pericardial effusion. (3) Hyponatremia: She has significant hyponatremia. Etiology is not yet determined. She received dexamethasone on arrival to the emergency department TSH normal, cortisol level high This has resolved (4) Hyperkalemia: Resolved (5) Thrombocytopenia: Worsened today. Considering extubation planned, pulling of arterial line today with extubation, improvement of right hand and the ability to Doppler right radial pulse will discontinue heparin. It poses more of a risk now with bleeding than it does with benefit. If patient stabilizes following this consider initiation of DVT prophylaxis anticoagulation in the form of Lovenox this evening. (6) UTI (urinary tract infection): Patient appears to have significant UTI. There is no evidence of obstruction. IV antibiotics consisting meropenem Awaiting urine culture, growing 2 colonies of gram-negative stacie (7) INDRA (acute kidney injury): Patient with significant acute kidney injury. Continues to improve Daily BMP (8) Hypotension: Patient initially hypotensive secondary to sepsis versus tamponade. Blood pressure currently improved Dopamine has been discontinued. It is not a dose that would affect blood pressure currently. (9) Transaminitis: Likely secondary to sepsis, elevation secondary to cardiac arrest. LFTs improving (10) Metastatic urothelial carcinoma: Patient appears to be on palliative chemotherapy. Last treatment around November 12 (11) Cardiac arrest: Status postcardiac arrest with induction. She required 2 minutes, 1 cycle, of CPR. She appears to be following direction and is likely neurologically intact. Continue to follow closely. (12) Acute respiratory failure: Patient with acute respiratory failure during cardiac arrest. She is intubated and sedated. Extubation trial today. Plan on pulling femoral arterial line prior to extubation. Weaning trial arranged. Plan Anemia. She has received at least 2 units of packed red blood cells on December 16 and hemoglobin is stable Right radial artery thrombus. Heparin drip. Continued monitoring. COPD. Continue Pulmicort, DuoNeb Multiple other medical problems as outlined in past medical history Full code Heparin currently is sufficient for DVT prophylaxis but will hold. Continue SCDs. Planning on initiation DVT prophylaxis if patient has no bleeding. Will be initiated cautiously in this patient's secondary to thrombocytopenia. Attestations Medical Necessity Statement*: Needs continued hospital stay secondary to acute respiratory failure with sepsis, pericardial tamponade, cardiac arrest, multiorgan dysfunction Critical Care Time: The high probability of a clinically significant, sudden or life threatening deterioration of the patient's [hepatic, renal, respiratory, infectious disease] system(s) required my full and direct attention, intervention and personal management. The critical care time is as shown. This time is in addition to time spent performing any reported procedures but includes the following: [x] Data and vital sign review and interpretation [x] Patient assessment, examination and intervention [x] Documentation [x] Medication orders and management Critical Care Time (min): 37 Coding Level of Care Code Critical Care >/= 30 minutes Critical care time (in minutes): 37 The high probability of a clinically significant, sudden or life threatening deterioration, as referenced in this documentation, required my full and direct attention, intervention and personal management. The critical care time shown is in addition to time spent performing any reported separately billable procedures and includes the following: [x] Data and vital sign review and interpretation [x ] Patient assessment, examination and intervention [x] Medication orders and management [x] Patient/Family updates as able [x] Care Coordination and D ocumentation. Diagnoses Sepsis A41.9 Pericardial effusion I31.39 Hyponatremia E87.1 Hyperkalemia E87.5 Thrombocytopenia D69.6 UTI (urinary tract infection) N39.0 INDRA (acute kidney injury) N17.9 Hypotension I95.9 Transaminitis R74.01 Metastatic urothelial carcinoma C79.10 Cardiac arrest I46.9 Acute respiratory failure J96.00
[2022-12-19] MEDS: pantoprazole 40 mg SDV IVP (08:53)
[2022-12-19] MEDS: valACYclovir 1,000 mg Tablet 1000 MG PO (08:53)
[2022-12-19 10:48] LABS: LAB Peripheral Smear Sent for Review
[2022-12-19] MEDS: methylPREDNISolone sod succ 60 MG in water for injection-sterile 0.96 ML 11.52 MG IVP (11:39)
[2022-12-19] MEDS: vancomycin 750 MG in sodium chloride 0.9% 250 ML 250 MG IV (11:39)
--- NOTE | 2022-12-19 12:37 | PM.MISC ---
Miscellaneous Note Purpose of Documentation: Update on patient care Note: Patient evaluated this morning, dressing noted to be hemostatic. Packing was removed from the wound and replaced with quarter inch packing. No residual bleeding noted. Wound care can be continued by ICU nursing staff with once a day packing. Packing can be done with quarter inch packing and then wound can be covered with gauze and tape.
--- NOTE | 2022-12-19 13:20 | PC.NURSE ---
Patient extubated to 6L NC, no complications. Multiple apnea alarms on vent prior to extubation, Dr. Norman notified. Patient oxygenating well currently.
[2022-12-19 15:29] LABS: Basophils % 0.1 %; Hematocrit 27.7 % (36-47); Lymphocytes # 0.1 10^3/uL (0.8-4.8); Lymphocytes % 0.6 %; Mean Corpuscular Hemoglobin 30.8 pg (27-33); Mean Corpuscular Volume 99.3 fl (85-98); Monocytes # 0.7 10^3/uL (0.2-0.9); Monocytes % 3.7 %; Neutrophils # 17.67 10^3/uL (1.8-7.7); Neutrophils % 93.5 %; Nucleated Red Blood Cells # 0.1 /100WBC; Nucleated Red Blood Cells % 0.5 %; Red Blood Count 2.79 10^6/uL (3.85-5.65); Red Cell Distribution Width 25.4 % (12.1-15.1)
[2022-12-19] MEDS: oxyCODONE 5 mg IR Tab/Cap PO ×2 (15:38→23:37)
[2022-12-19 16:02] LABS: Platelet Count 22 10^3/cmm (157-399)
[2022-12-19 16:05] LABS: Slide Review Slide Review Perform
--- NOTE | 2022-12-19 16:05 | PC.NURSE ---
Addendum entered by Pricilla Clemens RN 12/19/22 16:16: Witnessed waste of medications Original Note: Fentanyl 63.374ml, Propofol 17.384ml wasted with GAEL Pleitez.
--- NOTE | 2022-12-19 17:55 | P.PN_ITS ---
Subjective Subjective: Extubated today. currently on 2lpm supplemental 02. Platelet count dropping at 32. cr 1.4 . Blood cx from 12/18 negative so far. s/p port removal on 12/18 Medications: Reviewed: Yes Vitals/I&O/Wt Last Vital Signs Temp 98.2 F 12/19/22 16:15 Pulse 109 H 12/19/22 16:15 Resp 18 12/19/22 15:38 BP 93/64 12/19/22 16:15 Pulse Ox 89 L 12/19/22 16:15 O2 Del Method Nasal Cannula 12/19/22 16:15 O2 Flow Rate 6 12/19/22 13:45 FiO2 35 12/19/22 13:11 12/19/22 12/19/22 12/19/22 06:59 14:59 22:59 Intake Total 744.210 / 2368.554 415.410 / 415.410 50 / 465.410 Output Total 325 / 1005 Balance 419.210 / 1363.554 415.410 / 415.410 50 / 465.410 Weight last 48 hrs Weight 51.891 kg Weight 50 kg Physical Exam Narrative: General: AAO x 3 HEENT: PERRLA, pupils bilaterally equal and reactive, pallors not present Chest: Pericardial window dressing in place, not open for exam CVS: S1-S2 regular, no murmurs, no tachycardia, no gallops, no rubs Abdomen: Soft, nontender, no organomegaly, bowel sounds present Neuro: AAO x 3 Ext: rigth thumb and hand with changes of impending gangrene tubes/lines: ETT , OG, pericardial drain, CVC right IJ Urinary Catheter Management: Coffman: Cath Placed During This Visit: yes Reason for Continuing Indwelling Catheter: Accurate Measurement of Urinary Output in Critically Ill Patients Urinary Catheter Date of Insertion: 12/16/22 Urinary Catheter Time of Insertion: 14:02 Data 12/20/22 14:24 12/20/22 04:15 Micro: Microbiology 12/18/22 15:26 Catheter Tip Culture - Preliminary Other Source Coag positive Staphylococcus 12/16/22 10:32 Urine Culture - Final Urine,Clean Catch Escherichia coli Proteus vulgaris 12/18/22 06:47 Blood Culture - Preliminary Blood NEGATIVE TO DATE 12/18/22 06:43 Blood Culture - Preliminary Blood NEGATIVE TO DATE 12/16/22 18:30 Gram Stain - Final Sputum - Endotracheal Tube Aspirate Sputum Culture - Preliminary A&P Assessment and plan (1) MRSA (methicillin resistant Staphylococcus aureus) septicemia: Patient with known bladder cancer status post transurethral resection of the bladder tumor in January 2022, thereafter found to have metastatic lymphadenopathy in chest retroperitoneum and pelvis and bony metastases as of most recent PET scan in 11/2022. Currently on treatment with carboplatin/gemcitabine, previously on pembrolizumab Presenting to the hospital with sepsis, shock likely a combination of septic shock plus cardiogenic shock from pericardial tamponade, DIC with hospital course complicated by cardiac arrest intraoperatively while undergoing pericardial window, status post ROSC, now currently in the ICU intubated and sedated. Blood cultures during course of admission positive for MRSA from December 16, 2022. Susceptibility is pending. s/p port removal on 12/18 Cultures from 12/18 thus far negative to date Currently patient is on treatment with empiric meropenem and vancomycin. Vancomycin to continue for MRSA bacteremia Meropenem to continue given presence of gram-negative rods in the urine awaiting further identification Previously patient noted to have moderate right hydronephrosis and also mild left hydroureter, however on the most recent CT KUB on December 16, 2022, there is no evidence of hydronephrosis in either kidney. FRANCIS negative for endocarditis patient off pressors (2) Acute respiratory failure: management per primary (3) Cardiac arrest: Likely related to pericardial tamponade (4) Pericardial effusion with cardiac tamponade: Etiology unclear at this time. Review of prior imaging and notes reveals that pericardial effusion has been slowly increasing since August 2022. Possible cause of pericardial effusion may be malignant versus infectious versus autoimmune from pembrolizumab. Biopsy is pending. Unfortunately no culture data is available from OR. 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
[2022-12-19] MEDS: docusate sodium 100 mg Capsule PO (18:16)
[2022-12-19] MEDS: oxyCODONE 10 mg ER (12 HR) Tablet PO (18:16)
[2022-12-20] VITALS (50 sets, daily range): BP systolic 91–145; BP diastolic 51–92; PULSE 79–107; RESP 13–30; TEMP 36.1–37.2; O2SAT 90–98
[2022-12-20] MEDS: ipratropium-albuterol 3 mL Neb INHALATION ×2 (01:44→08:09)
[2022-12-20] MEDS: meropenem 500 MG in sodium chloride 0.9% (plus) 50 ML 100 MG IV (03:40)
[2022-12-20 04:26] LABS: Basophils % 0.1 %; Hematocrit 28.2 % (36-47); Lymphocytes # 0.2 10^3/uL (0.8-4.8); Mean Corpuscular HGB Conc 31.2 g/dL (30-55); Mean Corpuscular Hemoglobin 31.2 pg (27-33); Monocytes # 1.2 10^3/uL (0.2-0.9); Monocytes % 5.9 %; Neutrophils # 19.14 10^3/uL (1.8-7.7); Neutrophils % 91.8 %; Nucleated Red Blood Cells # 0.1 /100WBC; Nucleated Red Blood Cells % 0.6 %; Red Blood Count 2.82 10^6/uL (3.85-5.65); Red Cell Distribution Width 25.2 % (12.1-15.1); White Blood Count 20.87 10^3/uL (3.29-11.43)
[2022-12-20 04:28] LABS: Platelet Count 21 10^3/cmm (157-399)
[2022-12-20 04:48] LABS: Alanine Aminotransferase 74 U/L (0-33); Albumin Level 2.5 g/dL (3.5-5.2); Alkaline Phosphatase 110 U/L (35-105); Anion Gap 14.4 (5-19); Aspartate Amino Transferase 79 U/L (0-32); Blood Urea Nitrogen 51 mg/dL (8-23); Calcium 8.1 mg/dL (8.5-10.5); Carbon Dioxide 26 mmol/L (22-29); Chloride 98 mmol/L (98-107); Globulin 2.4 g/dL (1.3-4.6); Glomerular Filtration Rate 32.8 mL/min (90-130); Glucose 137 mg/dL (65-115); Osmolality Calculated 296 mOsm/kg (285-295); Potassium 3.4 mmol/L (3.5-5.1); Sodium 135 mmol/L (136-145); Total Bilirubin 1.5 mg/dL (0.15-1.2); Total Protein 4.9 g/dL (6.6-8.7)
[2022-12-20] MEDS: oxyCODONE 5 mg IR Tab/Cap PO ×3 (07:52→21:00)
[2022-12-20] MEDS: potassium chloride ER 20 mEq Tablet 40 MEQ PO (07:53)
[2022-12-20] MEDS: budesonide 0.5 mg/2 mL Neb INHALATION (08:09)
[2022-12-20] MEDS: valACYclovir 1,000 mg Tablet 1000 MG PO (08:58)
[2022-12-20] MEDS: docusate sodium 100 mg Capsule PO ×2 (08:58→17:09)
[2022-12-20] MEDS: sennosides-docusate Tablet 1 TAB PO ×2 (08:58→17:09)
[2022-12-20] MEDS: predniSONE 20 mg Tablet 60 MG PO (08:58)
[2022-12-20] MEDS: oxyCODONE 10 mg ER (12 HR) Tablet PO ×2 (08:58→17:09)
[2022-12-20] MEDS: pantoprazole DR 40 mg Tablet PO ×2 (08:58→17:09)
[2022-12-20] MEDS: fluticasone nasal spray 16gm Btl 2 SPRAY NASAL (09:05)
[2022-12-20] MEDS: sodium chloride 0.9% 1,000 ML 50 ML IV (09:09)
[2022-12-20 11:08] LABS: Vancomycin Trough 13.4 ug/mL (10-15)
[2022-12-20] MEDS: vancomycin 750 MG in sodium chloride 0.9% 250 ML 250 MG IV (11:46)
[2022-12-20] MEDS: LORazepam 0.5 mg Tablet PO ×2 (12:31→21:00)
[2022-12-20 13:05] LABS: Lactate Dehydrogenase 444 U/L (135-214)
[2022-12-20] MEDS: ciprofloxacin 400 MG/200 ML PREMIX 200 MG IV ×2 (13:25→23:46)
--- NOTE | 2022-12-20 13:35 | PM.PN ---
Subjective Subjective: Today but is no worse than yesterday. She is able to tolerate drinking without coughing significantly. When she does cough she has a little bit of blood in her sputum. She continues to oxygenate well off the ventilator. Medications: Reviewed: Yes Vitals/I&O/Wt Last Vital Signs Temp 97.0 F L 12/20/22 08:00 Pulse 79 12/20/22 12:00 Resp 13 12/20/22 12:00 BP 110/70 12/20/22 12:00 Pulse Ox 96 12/20/22 12:00 O2 Del Method Nasal Cannula 12/20/22 12:00 O2 Flow Rate 2 12/20/22 12:00 FiO2 35 12/19/22 13:11 12/19/22 12/20/22 12/20/22 22:59 06:59 14:59 Intake Total 632 / 1047.410 716 / 1763.410 840 / 840 Output Total 955 / 955 390 / 1345 100 / 100 Balance -323 / 92.410 326 / 418.410 740 / 740 Weight last 48 hrs Weight 49.895 kg Weight 51.891 kg Physical Exam Narrative: General exam no distress, on 2 L of oxygen, conversant Neck is supple no lymphadenopathy thyromegaly Cardiovascular regular rate and rhythm, no murmur. Chest tube noted Lungs diminished breath sounds bilaterally. No wheezes or crackles Abdomen soft, bowel sounds are noted Extremities no extraordinary cyanosis clubbing or edema. Right upper extremity with cyanotic right hand especially side of thumb. Cap refill impaired., She has good movement, and I believe it is somewhat better than yesterday. Skin no rash Neuro: Follows all commands Urinary Catheter Management: Coffman: Cath Placed During This Visit: yes Reason for Continuing Indwelling Catheter: Accurate Measurement of Urinary Output in Critically Ill Patients Urinary Catheter Date of Insertion: 12/16/22 Urinary Catheter Time of Insertion: 14:02 Data 12/20/22 04:15 12/20/22 04:15 Micro: Microbiology 12/18/22 15:26 Catheter Tip Culture - Preliminary Other Source Coag positive Staphylococcus 12/16/22 10:32 Urine Culture - Final Urine,Clean Catch Escherichia coli Proteus vulgaris A&P Assessment and plan (1) Sepsis: Patient presents to the hospital with sepsis, with concern for septic shock She presented to the emergency department on an epinephrine drip. All pressors have been discontinued Currently on vancomycin and meropenem. Her urine culture is amenable to ciprofloxacin which she will be changed to. 2 organisms were identified, E. coli and Proteus 3 out of 3 blood cultures MRSA positive. Repeat cultures are negative to date. Currently on vancomycin and appreciate ID consultation. Port was removed 12/18, which is also growing organism. FRANCIS did not demonstrate endocarditis. Current plan is at least 6 weeks of IV vancomycin. There is also concern of possible pneumonia left lower lobe. Current antibiotics will be sufficient for this. Will ultimately need a PICC line when it is safe to put 1 and after platelets have increased. (2) Pericardial effusion: Patient with significant pericardial effusion, which could also cause hypotension. On CT, and echo there was concern for tamponade. She was taken emergently to the OR for drainage which was bloody and approximately 750 cc. She has currently still has placement of drain. During initiation of anesthesia she lost a pulse and required approximately 1 round of CPR. She appears to be neurologically intact. Appreciate thoracic surgery consultation Etiology is concerning for metastatic bladder cancer which she is known to have, but cannot completely exclude infection or even effect of her Guera Mab. Visited with oncology and they would prefer she be kept on steroids currently if okay with infectious disease. Placed on Solu-Medrol 60 mg IV every 24 hours initially but now that she is taking p.o. changed to prednisone 60 mg a day (3) Hyponatremia: She has significant hyponatremia. She received dexamethasone on arrival to the emergency department TSH normal, cortisol level high This has resolved (4) Hyperkalemia: Resolved Slightly hypokalemic today, which was supplemented (5) Thrombocytopenia: Worsened yesterday afternoon. The same today. No current active bleeding so no transfusion has been ordered. Anticoagulation has been held secondary to severe thrombocytopenia. If platelet count starts increasing, would certainly consider adding anticoagulation. If it decreases further or any active bleeding may need to initiate platelet transfusion but would only do so with initiation of anticoagulation. Visited briefly with hematology regarding this. (6) UTI (urinary tract infection): Patient appears to have significant UTI. There is no evidence of obstruction. Changed IV antibiotic to ciprofloxacin based on culture results (7) INDRA (acute kidney injury): Patient with significant acute kidney injury. Stable today Daily BMP Avoid renal toxic medication (8) Hypotension: Patient initially hypotensive secondary to sepsis versus tamponade. This has resolved (9) Transaminitis: Likely secondary to sepsis, elevation secondary to cardiac arrest. LFTs improving (10) Metastatic urothelial carcinoma: Patient appears to be on palliative chemotherapy. Last treatment around November 12 (11) Cardiac arrest: Status postcardiac arrest with induction. She required 2 minutes, 1 cycle, of CPR. She appears to be following direction and is likely neurologically intact. Continue to follow closely. (12) Acute respiratory failure: Patient with acute respiratory failure during cardiac arrest. She is intubated and sedated. Able to be extubated successfully on 12/19 Plan Anemia. She has received at least 2 units of packed red blood cells on December 16 and hemoglobin is stable Right radial artery thrombus. Heparin drip was initiated for 48 hours but discontinued as platelets decreased further. COPD. Continue Pulmicort, DuoNeb Multiple other medical problems as outlined in past medical history Full code CDs for DVT prophylaxis. Anticoagulation needs to be restarted when platelet count increases Attestations Medical Necessity Statement*: Needs continued hospital stay secondary to multiorgan dysfunction after cardiac arrest, UTI requiring IV antibiotics, bacteremia requiring IV vancomycin Diagnoses Sepsis A41.9 Pericardial effusion I31.39 Hyponatremia E87.1 Hyperkalemia E87.5 Thrombocytopenia D69.6 UTI (urinary tract infection) N39.0 INDRA (acute kidney injury) N17.9 Hypotension I95.9 Transaminitis R74.01 Metastatic urothelial carcinoma C79.10 Cardiac arrest I46.9 Acute respiratory failure J96.00 Time Spent (min) 35
[2022-12-20] MEDS: albuterol 2.5 mg/3 mL Neb INHALATION (14:25)
[2022-12-20 14:36] LABS: Basophils % 0.2 %; Hematocrit 28.3 % (36-47); Lymphocytes # 0.1 10^3/uL (0.8-4.8); Lymphocytes % 0.6 %; Mean Corpuscular HGB Conc 31.1 g/dL (30-55); Mean Corpuscular Hemoglobin 31.5 pg (27-33); Mean Corpuscular Volume 101.4 fl (85-98); Monocytes # 0.7 10^3/uL (0.2-0.9); Monocytes % 3.5 %; Neutrophils % 94.5 %; Nucleated Red Blood Cells # 0.1 /100WBC; Nucleated Red Blood Cells % 0.5 %; Red Blood Count 2.79 10^6/uL (3.85-5.65); White Blood Count 18.84 10^3/uL (3.29-11.43)
[2022-12-20 15:16] LABS: Platelet Count 18 10^3/cmm (157-399)
--- NOTE | 2022-12-20 17:50 | P.PN_ITS ---
Subjective Subjective: Off pressors, changes in right hand improving, better perfusion, blood cx negative 12/18 , platelets continue to drop , urine cx with proteus vulgaris and E. coli Medications: Reviewed: Yes Vitals/I&O/Wt Last Vital Signs Temp 97.0 F L 12/20/22 08:00 Pulse 97 12/20/22 16:00 Resp 20 H 12/20/22 16:00 BP 104/76 12/20/22 16:00 Pulse Ox 90 12/20/22 16:00 O2 Del Method Nasal Cannula 12/20/22 16:00 O2 Flow Rate 1.5 12/20/22 16:00 FiO2 35 12/19/22 13:11 12/20/22 12/20/22 12/20/22 06:59 14:59 22:59 Intake Total 716 / 1763.410 840 / 840 Output Total 390 / 1345 100 / 100 Balance 326 / 418.410 740 / 740 Weight last 48 hrs Weight 49.895 kg Weight 51.891 kg Physical Exam Narrative: General: AAO x 3 HEENT: PERRLA, pupils bilaterally equal and reactive, pallors not present Chest: Pericardial window dressing in place, not open for exam CVS: S1-S2 regular, no murmurs, no tachycardia, no gallops, no rubs Abdomen: Soft, nontender, no organomegaly, bowel sounds present Neuro: AAO x 3 Ext: right thumb and hand with improving color tubes/lines: ETT , OG, pericardial drain, CVC right IJ Urinary Catheter Management: Coffman: Cath Placed During This Visit: yes Reason for Continuing Indwelling Catheter: Accurate Measurement of Urinary Output in Critically Ill Patients Urinary Catheter Date of Insertion: 12/16/22 Urinary Catheter Time of Insertion: 14:02 Data 12/20/22 14:24 12/20/22 04:15 Micro: Microbiology 12/16/22 18:30 Gram Stain - Final Sputum - Endotracheal Tube Aspirate Sputum Culture - Preliminary 12/18/22 15:26 Catheter Tip Culture - Preliminary Other Source Coag positive Staphylococcus A&P Assessment and plan (1) MRSA (methicillin resistant Staphylococcus aureus) septicemia: Patient with known bladder cancer status post transurethral resection of the bladder tumor in January 2022, thereafter found to have metastatic lymphadenopathy in chest retroperitoneum and pelvis and bony metastases as of most recent PET scan in 11/2022. Currently on treatment with carboplatin/gemcitabine, previously on pembrolizumab Presenting to the hospital with sepsis, shock likely a combination of septic shock plus cardiogenic shock from pericardial tamponade, DIC with hospital course complicated by cardiac arrest intraoperatively while undergoing pericardial window, status post ROSC, now currently in the ICU intubated and sedated. Blood cultures during course of admission positive for MRSA from December 16, 2022. Susceptibility is pending. s/p port removal on 12/18 Cultures from 12/18 thus far negative to date Currently patient is on treatment with empiric meropenem and vancomycin. Vancomycin to continue for MRSA bacteremia Change meropenem to cipro for UTI Previously patient noted to have moderate right hydronephrosis and also mild left hydroureter, however on the most recent CT KUB on December 16, 2022, there is no evidence of hydronephrosis in either kidney. FRANCIS negative for endocarditis patient off pressors (2) Acute respiratory failure: management per primary (3) Cardiac arrest: Likely related to pericardial tamponade (4) Pericardial effusion with cardiac tamponade: Etiology unclear at this time. Review of prior imaging and notes reveals that pericardial effusion has been slowly increasing since August 2022. Possible cause of pericardial effusion may be malignant versus infectious versus autoimmune from pembrolizumab. Biopsy is pending. Unfortunately no culture data is available from OR. 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
--- NOTE | 2022-12-20 20:55 | PC.NURSE ---
Pain: Notified Dr. Banks of 10/24 generalized pain @2053. New order to edit Oxycodone IR 5mg PO Q8H to Q6H.
--- NOTE | 2022-12-20 21:27 | PC.NURSE ---
Addendum entered by Grace Youngblood RN 12/21/22 03:29: Pt continues to refuse care. Pt complaining of being uncomfortable. This RN has offered turning and bathing multiple times this shift and pt continues to refuse. Original Note: Refusing Care: Pt is resistant to help from nursing staff. Initially refused to be assessed by this nurse. Is refusing Q2HR turning, refusing central line dressing change, and refusing bath. This RN explained the importance of these things and pt verbalized understanding and agreed to be assessed. Pt again refused turning, central line dressing change, and bath. Pt stated, You need to leave me alone and let me rest, rest is the best medicine, I would do better if you all would leave me alone . Will attempt to change central line dressing in the morning and continue to offer bath and turning.
[2022-12-21] VITALS (47 sets, daily range): BP systolic 105–159; BP diastolic 65–109; PULSE 83–111; RESP 14–33; TEMP 36.6–36.8; O2SAT 87–96
[2022-12-21] MEDS: oxyCODONE 5 mg IR Tab/Cap PO ×3 (03:15→19:14)
[2022-12-21] MEDS: sodium chloride 0.9% 1,000 ML 50 ML IV ×2 (03:24→23:41)
[2022-12-21 04:01] LABS: Basophils % 0.2 %; Hematocrit 29.7 % (36-47); Lymphocytes # 0.4 10^3/uL (0.8-4.8); Mean Corpuscular HGB Conc 30.6 g/dL (30-55); Monocytes # 1.2 10^3/uL (0.2-0.9); Monocytes % 6.6 %; Neutrophils # 16.86 10^3/uL (1.8-7.7); Nucleated Red Blood Cells # 0.1 /100WBC; Nucleated Red Blood Cells % 0.4 %; Red Blood Count 2.94 10^6/uL (3.85-5.65); Red Cell Distribution Width 24.8 % (12.1-15.1); White Blood Count 18.73 10^3/uL (3.29-11.43)
[2022-12-21 04:24] LABS: Alanine Aminotransferase 60 U/L (0-33); Albumin Level 2.2 g/dL (3.5-5.2); Alkaline Phosphatase 121 U/L (35-105); Anion Gap 9.7 (5-19); Aspartate Amino Transferase 66 U/L (0-32); Blood Urea Nitrogen 41 mg/dL (8-23); Calcium 7.8 mg/dL (8.5-10.5); Carbon Dioxide 27 mmol/L (22-29); Chloride 100 mmol/L (98-107); Globulin 2.3 g/dL (1.3-4.6); Glomerular Filtration Rate 50.5 mL/min (90-130); Glucose 84 mg/dL (65-115); Magnesium 1.8 mg/dL (1.7-2.3); Osmolality Calculated 285 mOsm/kg (285-295); Potassium 3.7 mmol/L (3.5-5.1); Sodium 133 mmol/L (136-145); Total Bilirubin 1.3 mg/dL (0.15-1.2); Total Protein 4.5 g/dL (6.6-8.7)
[2022-12-21 04:51] LABS: Platelet Count 16 10^3/cmm (157-399)
[2022-12-21 04:53] LABS: Slide Review Slide Review Perform
[2022-12-21] MEDS: albuterol 2.5 mg/3 mL Neb INHALATION (08:24)
[2022-12-21] MEDS: budesonide 0.5 mg/2 mL Neb INHALATION (08:24)
[2022-12-21] MEDS: pantoprazole DR 40 mg Tablet PO ×2 (08:52→17:06)
[2022-12-21] MEDS: oxyCODONE 10 mg ER (12 HR) Tablet PO ×2 (08:53→17:07)
[2022-12-21] MEDS: predniSONE 20 mg Tablet 60 MG PO (08:55)
[2022-12-21] MEDS: docusate sodium 100 mg Capsule PO ×2 (08:55→17:05)
[2022-12-21] MEDS: sennosides-docusate Tablet 1 TAB PO ×2 (08:55→17:05)
[2022-12-21] MEDS: fluticasone nasal spray 16gm Btl 2 SPRAY NASAL (08:56)
[2022-12-21 10:58] LABS: LAB Peripheral Smear Sent for Review
[2022-12-21 11:24] LABS: D Dimer 16.69 ug/mLFEU (0-0.59)
[2022-12-21 11:39] LABS: Ferritin 462 ng/mL (15-150); Iron 61 ug/dL (37-145); Lactate Dehydrogenase 426 U/L (135-214); Percent Saturation 34.4 % (20-50); Procalcitonin 1.17 ng/mL (0-0.5); Total Iron Binding Capacity 177 mcg/dl; Unsaturated Iron Binding 116 ug/dL (112-347)
[2022-12-21] MEDS: vancomycin 750 MG in sodium chloride 0.9% 250 ML 250 MG IV (11:42)
[2022-12-21 12:48] LABS: Potassium, Radom Urine 23 mmol/L; Urine Random Chloride 37 mmol/L; Urine Random Sodium 21 mmol/L
--- NOTE | 2022-12-21 15:59 | P.PN_ITS ---
Subjective Subjective: Hospital course, labs appreciated. On examination patient laying comfortably in bed. Has chest tube and pericardial drain in place. States overall feeling slightly better but complains of generalized weakness and nausea. Documented urine output of around urine output of 2900 cc yesterday with chest tube and pericardial drain having 95 cc. Patient is off pressors. Hemodynamically stable. Currently on 2 L of oxygen supplementation. Blood work shows a stable leukocytosis at 18.7, hemoglobin of 9.1, platelet count of 16,000, CMP showing mild hyponatremia at 133, creatinine improving to 1 .1, bilirubin of 1.3, AST/ALT of 66/60 which is trending down, elevated alkaline phosphatase at 121. Appreciate blood cultures and urine culture results. Medications: Reviewed: Yes Vitals/I&O/Wt Last Vital Signs Temp 97.8 F 12/21/22 14:30 Pulse 102 H 12/21/22 14:30 Resp 26 H 12/21/22 14:30 BP 131/92 12/21/22 14:30 Pulse Ox 93 12/21/22 14:30 O2 Del Method Nasal Cannula 12/21/22 14:30 O2 Flow Rate 1 12/21/22 14:30 FiO2 35 12/19/22 13:11 12/21/22 12/21/22 12/21/22 06:59 14:59 22:59 Intake Total 820.000 / 3352.500 950 / 950 Output Total 575 / 3495 30 / 30 Balance 245.000 / -142.500 920 / 920 Weight last 48 hrs Weight 49.895 kg Physical Exam Narrative: General exam no distress, on 2 L of oxygen, conversant Neck is supple no lymphadenopathy thyromegaly Cardiovascular regular rate and rhythm, no murmur. Chest tube noted Lungs diminished breath sounds bilaterally. No wheezes or crackles Abdomen soft, bowel sounds are noted Extremities no extraordinary cyanosis clubbing or edema. Right upper extremity with cyanotic right hand especially side of thumb. Cap refill impaired., She has good movement, and I believe it is somewhat better than yesterday. Skin no rash Neuro: Follows all commands Urinary Catheter Management: Coffman: Cath Placed During This Visit: yes Reason for Continuing Indwelling Catheter: Accurate Measurement of Urinary Output in Critically Ill Patients Urinary Catheter Date of Insertion: 12/16/22 Urinary Catheter Time of Insertion: 14:02 Data 12/22/22 05:02 12/22/22 05:02 Micro: Microbiology 12/16/22 18:30 Gram Stain - Final Sputum - Endotracheal Tube Aspirate Sputum Culture - Preliminary A&P Assessment and plan (1) MRSA (methicillin resistant Staphylococcus aureus) septicemia: (2) Sepsis: Patient presents to the hospital with sepsis, with concern for septic shock. Septic shock has so far resolved. Keep mean artery pressure 65. Blood cultures growing MRSA, urine culture growing E. coli and Proteus vulgaris. Source of infection most likely port which was removed on 12/18. Culture also growing coag positive staph. Blood cultures from 12/18 so far negative. Appreciate ID recommendations. Continue with current antibiotics of IV vancomycin and ciprofloxacin as per culture sensitivities. Monitor trough levels. Antibiotics to be dosed as per renal functions. Patient will most likely need PICC line placement once patient is less thrombotic and platelet counts improved. Currently central line is placed. Will need to be replaced around day 7-10. Persistent leukocytosis most likely in setting of high-dose steroids. Continue to monitor. (3) Pericardial effusion: Patient with significant pericardial effusion, which could also cause hypotension. With concerns for tamponade on admission. Post pericardial window and drain in which 750 cc of bloody fluid was drained. During procedure had cardiopulmonary arrest requiring 1 round of CPR. Currently neurologically intact. Appreciate cardiothoracic recommendation. Monitor output. Etiology so far unknown. Could be malignant versus secondary to immunotherapy from pembrolizumab. Currently on hold. Continue with prednisone 60 mg oral daily. (4) Ischemia of right upper extremity: With developing gangrene. Most likely in setting of DIC along with arterial line and ABG. Currently stabl e. Pulses dopplerable. Hand warm to touch with persistent cyanosis of fingertips and nails. Holding off on anticoagulation given significant thrombocytopenia. Continue with physical therapy. (5) Thrombocytopenia: Unknown etiology. Could be secondary to DIC versus TTP versus HLH. Most likely in setting of recovering DIC. Monitor platelet count daily. Watch for anemia. Hold off on transfusion. Appreciate hematology recommendations. Holding off on transfusion as patient is still at a higher risk of thrombosis. Will trend LDH and ferritin. Recheck D-dimer. (6) INDRA (acute kidney injury): Most likely in setting of septic shock. Resolving. Strict input output charting, daily weights. Continue with current IV hydration. Coffman catheter in place. Medical reconciliation done for nephrotoxic drugs. No electrolyte abnormality. Monitor BMP daily. (7) Hyponatremia: Resolving. Continue to monitor daily. (8) Hyperkalemia: Resolved (9) UTI (urinary tract infection): Appreciate urine cultures. Antibiotics changed as above. (10) Hypotension: Patient initially hypotensive secondary to sepsis versus tamponade. This has resolved (11) Transaminitis: Likely secondary to sepsis, elevation secondary to cardiac arrest. LFTs improving (12) Metastatic urothelial carcinoma: Patient appears to be on palliative chemotherapy. Last treatment around November 12 (13) Cardiac arrest: Status postcardiac arrest with induction. She required 2 minutes, 1 cycle, of CPR. She appears to be following direction and is likely neurologically intact. Continue to follow closely. (14) Acute respiratory failure: Patient with acute respiratory failure during cardiac arrest. She is intubated and sedated. Able to be extubated successfully on 12/19. Currently on 2 L of oxygen supplementation. Maintain saturation over 90%. Continue with Pulmicort and albuterol. Incentive spirometry. (15) Pericardial effusion with cardiac tamponade: Plan Anemia: Most likely in setting of severe sepsis, DIC. Post 2 unit of blood transfusion during hospitalization. Check iron panel, reticulocyte count, vitamin B12 and folate levels. Keep hemoglobin over 8. Will transfuse accordingly. Hemoglobin so far stable. Lines: Right-sided IJ, Coffman catheter Analgesia: Oxycodone 10 mg twice daily, oxycodone IR 5 mg every 6 hours as needed. As per home regimen Glycemic control: Not needed. Nutrition: GI soft diet. CODE STATUS: Discussed in detail with patient. will be the DPOA. She wants to remain full code. PUD prophylaxis: Protonix twice daily DVT prophylaxis: Holding off on DVT prophylaxis given significant thrombocytopenia. SCDs. Discharge planning: We will plan once patient is more stable. Patient will most likely need SNF placement Continue with care at ICU level This documentation was created by [employer] glue mill operator software. Every effort was made to ensure accuracy of glue mill operator. Any obvious errors or omissions should be clarified with the author of the document. Attestations Medical Necessity Statement*: Requires further hospitalization for management of MRSA bacteremia, improving PICC in a patient Giurgius postcardiac arrest, septic shock, respiratory failure extubated on 12/19 with current significant INDRA, transaminitis, severe thrombocytopenia with ongoing critical limb ischemia Coding Level of Care Code Critical Care >/= 30 minutes Critical care time (in minutes): 90 The high probability of a clinically significant, sudden or life threatening deterioration, as referenced in this documentation, required my full and direct attention, intervention and personal management. The critical care time shown is in addition to time spent performing any reported separately billable procedures and includes the following: [x] Data and vital sign review and interpretation [x ] Patient assessment, examination and intervention [x] Medication orders and management [x] Patient/Family updates as able [x] Care Coordination and Docum entation. Diagnoses MRSA (methicillin resistant Staphylococcus aureus) septicemia A41.02 Sepsis A41.9 Pericardial effusion I31.39 Ischemia of right upper extremity I99.8 Thrombocytopenia D69.6 INDRA (acute kidney injury) N17.9 Hyponatremia E87.1 Hyperkalemia E87.5 UTI (urinary tract infection) N39.0 Hypotension I95.9 Transaminitis R74.01 Metastatic urothelial carcinoma C79.10 Cardiac arrest I46.9 Acute respiratory failure J96.00 Pericardial effusion with cardiac tamponade I31.39; I31.4
[2022-12-21] MEDS: ciprofloxacin 400 MG/200 ML PREMIX 200 MG IV (16:15)
[2022-12-21 16:35] LABS: Add Urine Microscopic? YES; Bilirubin Urine Neg (Negative); Blood Urine 3+ (Negative); Glucose Urine UA Trace (Normal); Ketones Urine Negative (Negative); Leukocyte Esterase Urine Trace (Negative); Nitrate Urine Negative (Negative); Protein Urine Trace (Negative); RBC Urine 0-4 /hpf (0-2); Squamous Epithelial Cell Urine 0-4 /hpf (0-5); Urine Appearance SL Hazy (CLEAR); Urine Color Yellow (Yellow); Urobilinogen Urine Norm (Negative); pH Urine 5 (5-7)
[2022-12-21 16:36] LABS: Add Urine Culture? Yes; Bacteria Urine TRACE /hpf; Other Casts Urine WAXY /lpf
--- NOTE | 2022-12-21 17:44 | P.PN_ITS ---
Subjective Subjective: Infectious disease progress note. Platelets down to 16,000 today. Hand remains stable. INDRA and transaminitis improving. Blood cultures follow-up remain negative. Medications: Reviewed: Yes Vitals/I&O/Wt Last Vital Signs Temp 97.8 F 12/21/22 14:30 Pulse 91 12/21/22 16:00 Resp 19 H 12/21/22 16:00 BP 146/91 12/21/22 16:00 Pulse Ox 94 12/21/22 16:00 O2 Del Method Nasal Cannula 12/21/22 14:30 O2 Flow Rate 1 12/21/22 14:30 FiO2 35 12/19/22 13:11 12/21/22 12/21/22 12/21/22 06:59 14:59 22:59 Intake Total 820.000 / 3352.500 950 / 950 450 / 1400 Output Total 575 / 3495 30 / 30 550 / 580 Balance 245.000 / -142.500 920 / 920 -100 / 820 Weight last 48 hrs Weight 49.895 kg Physical Exam Narrative: General: AAO x 3 HEENT: PERRLA, pupils bilaterally equal and reactive, pallors not present Chest: Pericardial window dressing in place, not open for exam CVS: S1-S2 regular, no murmurs, no tachycardia, no gallops, no rubs Abdomen: Soft, nontender, no organomegaly, bowel sounds present Neuro: AAO x 3 Ext: right thumb and hand with improving color tubes/lines: ETT , OG, pericardial drain, CVC right IJ Urinary Catheter Management: Coffman: Cath Placed During This Visit: yes Reason for Continuing Indwelling Catheter: Accurate Measurement of Urinary Output in Critically Ill Patients Urinary Catheter Date of Insertion: 12/16/22 Urinary Catheter Time of Insertion: 14:02 Data 12/21/22 03:24 12/21/22 03:24 Micro: Microbiology 12/16/22 18:30 Gram Stain - Final Sputum - Endotracheal Tube Aspirate Sputum Culture - Preliminary NAME: Skye Ambrose Rj LOC: ICU U #: [id number] AGE/SX: 62/F ROOM: [facility] RE12/16/[address]: Cesar Jiménez MD : 1960 BED: 1 DIS: FAX #: STATUS: ADM IN TLOC: Spec #: [id number] Yara: 12/18/22 Status: RES Req #: [id number] Recd: 12/18/[address]: Ciro Norman MD Src: Other Sour SpDesc: Ordered: CTIP Comments: Comment Port-a-Cath tip culture Procedure Result Verified Site Catheter Tip Culture Preliminary 12/19/22 Organism 1 Coag positive Staphylococcus Growth 20 DAY 1, RESULTS TO FOLLOW NAME: Skye Ambrose LOC: ICU U #: [id number] AGE/SX: 62/F ROOM: ICU12 RE12/16/[address]: Cesar Jiménez MD : 1960 BED: 1 DIS: FAX #: STATUS: ADM IN TLOC: Spec #: [id number] Yara: 12/18/22 Status: RES Req #: [id number] Recd: 12/18/[address]: Ciro Norman MD Src: Blood SpDesc: Ordered: Bcult N Procedure Result Verified Site Blood Culture Preliminary 12/19/22 NEGATIVE TO DATE Blood Culture Preliminary (changed) 12/18/22 SPECIMEN COLLECTED NAME: Skye Ambrose LOC: ICU U #: [id number] AGE/SX: 62/F ROOM: ICU12 RE12/16/[address]: Cesar Jiménez MD : 1960 BED: 1 DIS: FAX #: STATUS: ADM IN TLOC: Spec #: [id number] Yara: 12/16/22 Status: RES Req #: [id number] Recd: 12/16/[address]: Ciro Norman MD Src: Sputum SpDesc: Endo Tube Ordered: SPU Cult & GS Procedure Result Verified Site Gram Stain Final 12/17/22141 Result MODERATE WHITE BLOOD CELLS NO EPITHELIAL CELLS RARE GRAM POSITIVE COCCI IN PAIRS Sputum Culture Preliminary 12/20/22 SEVERAL MIXED MOLD COLONIES PRESENT ON DAY 2 Sputum Culture Preliminary (changed) 12/18/22-1529 SCAMT MIXED UPPER RESPIRATORY ELSA ON DAY 1 TWO MOLD COLONIES PRESENT ON DAY 1 NAME: Skye Ambrose LOC: ICU U #: [id number] AGE/SX: 62/F ROOM: ICU12 RE12/16/[address]: Cesar Jiménez MD : 1960 BED: 1 DIS: FAX #: STATUS: ADM IN TLOC: Spec #: [id number] Yara: 12/16/22 Status: RES Req #: [id number] Recd: 12/16/[address]: Doni Swain DO Src: Blood SpDesc: Ordered: Bcult Procedure Result Verified Site Blood Culture Preliminary 12/17/22 2 OF 3 BOTTLES POSITIVE DIRECT GRAM STAIN: GRAM POSITIVE COCCI IN CLUSTERS RESULTS TO FOLLOW CRITICAL RESULT YES/NO: YES CRITICAL CALLED BY: MATEO TO AND READ BACK BY: PRATIK DATE: 12/17/22 TIME: 327 Blood Culture Preliminary (changed) 12/16/22 SPECIMEN COLLECTED NAME: Nasima Ambrosejosette De La Rosa LOC: ICU U #: [id number] AGE/SX: 62/F ROOM: ICU12 RE12/16/[address]: Cesar Jiménez MD : 1960 BED: 1 DIS: FAX #: STATUS: ADM IN TLOC: Spec #: [id number] Yara: 12/16/22 Status: COMP Req #: [id number] Recd: 12/16/[address]: Doni Swain DO Src: Urine CC SpDesc: Ordered: UC Procedure Result Verified Site Urine Culture Final 12/19/22-999 Organism 1 Escherichia coli [place] Count >100,000 CFU/ml Organism 2 Proteus vulgaris [place] Count >100,000 CFU/ml DAY 3 E coli P vulgaris M.I.C. RX M.I.C. RX --------- ------ --------- ------ * Amikacin <=16 S <=16 S * Amoxicillin/Clavulanate <=8/4 S <=8/4 S * Ampicillin <=8 S >16 R * Ampicillin/Sulbactam <=8/4 S <=8/4 S * Aztreonam <=4 S >16 R * Cefepime <=8 S <=8 S * Ceftriaxone <=1 S >32 R * Cefuroxime 8 S >16 R * Ciprofloxacin <=1 S <=1 S * Gentamicin <=2 S <=2 S * Imipenem <=1 S 2 I * Levofloxacin <=2 S <=2 S * Nitrofurantoin <=32 S >64 R * Tetracycline <=4 S <=4 R * Trimethoprim/Sulfamethoxazole <=2/38 S <=2/38 S * Piperacillin/Tazobactam <=16 S <=16 S Urine Culture Preliminary (changed) 12/18/22 Organism 1 Gram Negative Rods [place] Count >100,000 CFU/ml Organism 2 Gram Negative Rods#2 [place] Count >100,000 CFU/ml DAY 3, RESULTS TO FOLLOW Urine Culture Preliminary (changed) 12/18/22 Organism 1 Gram Negative Rods [place] Count >100,000 CFU/ml Organism 2 Gram Negative Rods#2 [place] Count >100,000 CFU/ml DAY 3, RESULTS TO FOLLOW Urine Culture Preliminary (changed) 12/18/22 Organism 1 Gram Negative Rods [place] Count >100,000 CFU/ml Organism 2 Gram Negative Rods#2 [place] Count >100,000 CFU/ml DAY 2, RESULTS TO FOLLOW Urine Culture Preliminary (changed) 12/17/22 Organism 1 Gram Negative Rods [place] Count >100,000 CFU/ml Organism 2 Gram Negative Rods#2 [place] Count >100,000 CFU/ml NAME: Skye Ambrose Rj LOC: ICU U #: [id number] AGE/SX: 62/F ROOM: ICU12 RE12/16/[address]: Cesar Jiménez MD : 1960 BED: 1 DIS: FAX #: STATUS: ADM IN TLOC: Spec #: [id number] Yara: 12/16/22 Status: RES Req #: [id number] Recd: 12/16/22-[address]: Doni Swain DO Src: Blood SpDesc: Ordered: Bcult Procedure Result Verified Site Blood Culture Preliminary 12/17/22-1658 3 OF 3 BOTTLES POSITIVE DIRECT GRAM STAIN: GRAM POSITIVE COCCI IN CLUSTERS ISOLATE ID BY PCR RESULTS TO FOLLOW Organism 1 Methicillin Resis Staph Aureus Growth IN ALL 3 BOTTLES Gram Stain Charge Charge for Gram Stain CRITICAL RESULT YES/NO: YES CRITICAL CALLED BY: MATEO TO AND READ BACK BY: PRATIK DATE: 12/17/22 TIME: 326 2ND CRITICAL RES YES/NO: YES 2ND CRITICAL CALLED BY: 2ND TO AND READ BACK BY: KRANTHI DATE: 12/17/22 2ND CRITICAL TIME: 1658 Blood Culture Preliminary (changed) 12/17/22-326 1 OF 3 BOTTLES POSITIVE DIRECT GRAM STAIN: GRAM POSITIVE COCCI IN CLUSTERS RESULTS TO FOLLOW CRITICAL RESULT YES/NO: YES CRITICAL CALLED BY: MATEO TO AND READ BACK BY: PRATIK DATE: 12/17/22 TIME: 326 A&P Assessment and plan (1) MRSA (methicillin resistant Staphylococcus aureus) septicemia: Patient with known bladder cancer status post transurethral resection of the bladder tumor in January 2022, thereafter found to have metastatic lymphadenopathy in chest retroperitoneum and pelvis and bony metastases as of most recent PET scan in 11/2022. Currently on treatment with carboplatin/gemcitabine, previously on pembrolizumab Presenting to the hospital with sepsis, shock likely a combination of septic clarence ck plus cardiogenic shock from pericardial tamponade, DIC with hospital course complicated by cardiac arrest intraoperatively while undergoing pericardial window, status post ROSC Blood cultures during course of admission positive for MRSA from December 16, 2022. Susceptibility is pending. s/p port removal on 12/18 Cultures from 12/18 thus far negative to date Currently patient is on treatment with Ciprofloxacin (for UTI) and vancomycin Vancomycin to continue for MRSA bacteremia for total 6 weeks (12/18-01/29) Okay to place PICc once platelets recover f/up cx from 12/18 negative to date Previously patient noted to have moderate right hydronephrosis and also mild left hydroureter, however on the most recent CT KUB on December 16, 2022, there is no evidence of hydronephrosis in either kidney. FRANCIS negative for endocarditis D/c ciprofloxacin after 10 day course (12/16-12/25) (2) Acute respiratory failure: management per primary (3) Cardiac arrest: Likely related to pericardial tamponade (4) Pericardial effusion with cardiac tamponade: Etiology unclear at this time. Review of prior imaging and notes reveals that pericardial effusion has been slowly increasing since August 2022. Possible cause of pericardial effusion may be malignant versus infectious versus autoimmune from pembrolizumab. Biopsy is pending. Unfortunately no culture data is available from OR. 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
[2022-12-21] MEDS: LORazepam 0.5 mg Tablet PO (19:15)
--- NOTE | 2022-12-21 23:47 | PC.NURSE ---
Patient refused a bath. This nurse educated the patient on why it is important to maintain good hygiene. Patient stated that she understood but was in pain and did not want to exert herself.
[2022-12-22] VITALS (58 sets, daily range): BP systolic 107–182; BP diastolic 62–108; PULSE 91–108; RESP 16–34; TEMP 36.4–36.6; O2SAT 92–98
[2022-12-22] MEDS: oxyCODONE 5 mg IR Tab/Cap PO ×4 (01:14→19:46)
[2022-12-22] MEDS: ciprofloxacin 400 MG/200 ML PREMIX 200 MG IV ×2 (03:13→15:12)
[2022-12-22 05:28] LABS: Basophils % 0.2 %; Eosinophils % 0.1 %; Hematocrit 29.7 % (36-47); Lymphocytes # 0.6 10^3/uL (0.8-4.8); Lymphocytes % 4.8 %; Mean Corpuscular Hemoglobin 30.8 pg (27-33); Mean Corpuscular Volume 102.8 fl (85-98); Monocytes # 1.3 10^3/uL (0.2-0.9); Monocytes % 9.9 %; Neutrophils # 10.63 10^3/uL (1.8-7.7); Nucleated Red Blood Cells % 0.3 %; Red Blood Count 2.89 10^6/uL (3.85-5.65); Red Cell Distribution Width 24.5 % (12.1-15.1)
[2022-12-22 05:47] LABS: Magnesium 1.7 mg/dL (1.7-2.3)
[2022-12-22 05:50] LABS: Alanine Aminotransferase 49 U/L (0-33); Albumin Level 1.8 g/dL (3.5-5.2); Alkaline Phosphatase 110 U/L (35-105); Anion Gap 9.6 (5-19); Aspartate Amino Transferase 60 U/L (0-32); Blood Urea Nitrogen 31 mg/dL (8-23); Calcium 7.7 mg/dL (8.5-10.5); Carbon Dioxide 27 mmol/L (22-29); Chloride 103 mmol/L (98-107); Globulin 2.3 g/dL (1.3-4.6); Glomerular Filtration Rate 72.9 mL/min (90-130); Glucose 97 mg/dL (65-115); Osmolality Calculated 288 mOsm/kg (285-295); Potassium 3.6 mmol/L (3.5-5.1); Sodium 136 mmol/L (136-145); Total Bilirubin 1.1 mg/dL (0.15-1.2); Total Protein 4.1 g/dL (6.6-8.7)
[2022-12-22 06:22] LABS: Slide Review Slide Review Perform
[2022-12-22 06:24] LABS: Platelet Count 18 10^3/cmm (157-399)
[2022-12-22] MEDS: LORazepam 0.5 mg Tablet PO ×3 (07:28→22:28)
[2022-12-22] MEDS: albuterol 2.5 mg/3 mL Neb INHALATION ×2 (08:14→14:04)
[2022-12-22] MEDS: budesonide 0.5 mg/2 mL Neb INHALATION (08:14)
[2022-12-22] MEDS: ipratropium 0.5 mg/2.5 mL Neb INHALATION (08:15)
[2022-12-22] MEDS: predniSONE 20 mg Tablet 60 MG PO (08:54)
[2022-12-22] MEDS: docusate sodium 100 mg Capsule PO ×2 (08:54→17:49)
[2022-12-22] MEDS: pantoprazole DR 40 mg Tablet PO ×2 (08:55→17:49)
[2022-12-22] MEDS: sennosides-docusate Tablet 1 TAB PO ×2 (08:55→17:49)
[2022-12-22] MEDS: oxyCODONE 10 mg ER (12 HR) Tablet PO ×2 (08:55→17:49)
--- NOTE | 2022-12-22 10:48 | PM.PN ---
Subjective Subjective: Infectious disease progress note. Afebrile, hemodynamically stable off pressors. Urine output over 1 L. LFTs and kidney function improving. Leukocytosis down to 12.8 from 18 today. Platelet count at 18,000, stable compared to yesterday. No acute interim events. Medications: Reviewed: Yes Vitals/I&O/Wt Last Vital Signs Temp 97.6 F 12/22/22 04:00 Pulse 98 12/22/22 10:00 Resp 26 H 12/22/22 10:00 BP 139/71 12/22/22 10:00 Pulse Ox 93 12/22/22 10:00 O2 Del Method Nasal Cannula 12/22/22 08:16 O2 Flow Rate 1 12/22/22 08:16 FiO2 35 12/19/22 13:11 12/21/22 12/22/22 12/22/22 22:59 06:59 14:59 Intake Total 450 / 1400 1736 / 3136 200 / 200 Output Total 825 / 855 350 / 1205 85 / 85 Balance -375 / 545 1386 / 1931 115 / 115 Physical Exam Narrative: General: No acute distress, AO x3 HEENT: PERRLA, pupils bilaterally equal and reactive, pallors not present Chest: Normal vesicular breath sounds, no added sounds, equal good air entry bilaterally CVS: S1-S2 regular, no murmurs, no tachycardia, no gallops, no rubs Abdomen: Soft, nontender, no organomegaly, bowel sounds present Neuro: No focal deficits, no facial deformity, AO x3, power 5/5 in all limbs Extremities: right hand changes of pregangrene stable, no new areas, tip of right thumb and index finger stable changes Urinary Catheter Management: Coffman: Cath Placed During This Visit: yes Reason for Continuing Indwelling Catheter: Accurate Measurement of Urinary Output in Critically Ill Patients Urinary Catheter Date of Insertion: 12/16/22 Urinary Catheter Time of Insertion: 14:02 Data 12/22/22 05:02 12/22/22 05:02 Micro: Microbiology 12/21/22 12:00 Urine Culture - Preliminary Urine,Clean Catch NAME: Skye Ambrose Rj LOC: ICU U #: [id number] AGE/SX: 62/F ROOM: [facility] RE12/16/[address]: Cesar Jiménez MD : 1960 BED: 1 DIS: FAX #: STATUS: ADM IN TLOC: Spec #: [id number] Yara: 12/18/22 Status: RES Req #: [id number] Recd: 12/18/[address]: Ciro Norman MD Src: Other Sour SpDesc: Ordered: CTIP Comments: Comment Port-a-Cath tip culture Procedure Result Verified Site Catheter Tip Culture Preliminary 12/19/22 Organism 1 Coag positive Staphylococcus Growth 20 DAY 1, RESULTS TO FOLLOW NAME: Skye Ambrose LOC: ICU U #: [id number] AGE/SX: 62/F ROOM: ICU12 RE12/16/[address]: Cesar Jiménez MD : 1960 BED: 1 DIS: FAX #: STATUS: ADM IN TLOC: Spec #: [id number] Yara: 12/18/22 Status: RES Req #: [id number] Recd: 12/18/[address]: Ciro Norman MD Src: Blood SpDesc: Ordered: Bcult Procedure Result Verified Site Blood Culture Preliminary 12/19/22 NEGATIVE TO DATE Blood Culture Preliminary (changed) 12/18/22 SPECIMEN COLLECTED NAME: Skye Ambrose LOC: ICU U #: [id number] AGE/SX: 62/F ROOM: ICU12 RE12/16/[address]: eCsar Jiménez MD : 1960 BED: 1 DIS: FAX #: STATUS: ADM IN TLOC: Spec #: [id number] Yara: 12/18/22 Status: RES Req #: [id number] Recd: 12/18/[address]: Ciro Norman MD Src: Blood SpDesc: Ordered: Bcult Procedure Result Verified Site Blood Culture Preliminary 12/19/22 NEGATIVE TO DATE Blood Culture Preliminary (changed) 12/18/22 NAME: Nasima Ambrosejosette De La Rosa LOC: ICU U #: [id number] AGE/SX: 62/F ROOM: ICU12 RE12/16/[address]: Cesar Jiménez MD : 1960 BED: 1 DIS: FAX #: STATUS: ADM IN TLOC: Spec #: [id number] Yara: 12/16/22 Status: RES Req #: [id number] Recd: 12/16/[address]: Doni Swain DO Src: Blood SpDesc: Ordered: Bcult Procedure Result Verified Site Blood Culture Preliminary 12/17/22 2 OF 3 BOTTLES POSITIVE DIRECT GRAM STAIN: GRAM POSITIVE COCCI IN CLUSTERS RESULTS TO FOLLOW CRITICAL RESULT YES/NO: YES CRITICAL CALLED BY: MATEO TO AND READ BACK BY: PRATIK DATE: 12/17/22 TIME: 327 Blood Culture Preliminary (changed) 12/16/22 SPECIMEN COLLECTED NAME: Nasima Ambrosejosette De La Rosa LOC: ICU U #: [id number] AGE/SX: 62/F ROOM: ICU12 RE12/16/[address]: Cesar Jiménez MD : 1960 BED: 1 DIS: FAX #: STATUS: ADM IN TLOC: Spec #: [id number] Yara: 12/16/22 Status: RES Req #: [id number] Recd: 12/16/[address]: Doni Swain DO Src: Blood SpDesc: Ordered: Bcult Procedure Result Verified Site Blood Culture Preliminary 12/17/22-1658 3 OF 3 BOTTLES POSITIVE DIRECT GRAM STAIN: GRAM POSITIVE COCCI IN CLUSTERS ISOLATE ID BY PCR RESULTS TO FOLLOW Organism 1 Methicillin Resis Staph Aureus Growth IN ALL 3 BOTTLES Gram Stain Charge Charge for Gram Stain CRITICAL RESULT YES/NO: YES CRITICAL CALLED BY: AMTEO TO AND READ BACK BY: PRATIK DATE: 12/17/22 TIME: 032 2ND CRITICAL RES YES/NO: YES 2ND CRITICAL CALLED BY: MANUEL 2ND TO AND READ BACK BY: KRANTHI DATE: 12/17/22 2ND CRITICAL TIME: 165 Blood Culture Preliminary (changed) 12/17/22-326 1 OF 3 BOTTLES POSITIVE DIRECT GRAM STAIN: GRAM POSITIVE COCCI IN CLUSTERS RESULTS TO FOLLOW CRITICAL RESULT YES/NO: YES CRITICAL CALLED BY: MATEO TO AND READ BACK BY: PRATIK DATE: 12/17/22 TIME: 326 Blood Culture Preliminary (changed) 12/16/22-1042 SPECIMEN COLLECTED NAME: Skye Ambrose LOC: ICU U #: [id number] AGE/SX: 62/F ROOM: ICU12 RE12/16/[address]: Cesar Jiménez MD : 1960 BED: 1 DIS: FAX #: STATUS: ADM IN TLOC: Spec #: [id number] Yara: 12/16/22 Status: COMP Req #: [id number] Recd: 12/16/[address]: Doni Swain DO Src: Urine CC SpDesc: Ordered: UC Procedure Result Verified Site Urine Culture Final 12/19/22-999 Organism 1 Escherichia coli [place] Count >100,000 CFU/ml Organism 2 Proteus vulgaris [place] Count >100,000 CFU/ml DAY 3 E coli P vulgaris M.I.C. RX M.I.C. RX --------- ------ --------- ------ * Amikacin <=16 S <=16 S * Amoxicillin/Clavulanate <=8/4 S <=8/4 S * Ampicillin <=8 S >16 R * Ampicillin/Sulbactam <=8/4 S <=8/4 S * Aztreonam <=4 S >16 R * Cefepime <=8 S <=8 S * Ceftriaxone <=1 S >32 R * Cefuroxime 8 S >16 R * Ciprofloxacin <=1 S <=1 S * Gentamicin <=2 S <=2 S * Imipenem <=1 S 2 I * Levofloxacin <=2 S <=2 S * Nitrofurantoin <=32 S >64 R * Tetracycline <=4 S <=4 R * Trimethoprim/Sulfamethoxazole <=2/38 S <=2/38 S * Piperacillin/Tazobactam <=16 S <=16 S Urine Culture Preliminary (changed) 12/18/22 Organism 1 Gram Negative Rods [place] Count >100,000 CFU/ml Organism 2 Gram Negative Rods#2 [place] Count >100,000 CFU/ml DAY 3, RESULTS TO FOLLOW Urine Culture Preliminary (changed) 12/18/22 Organism 1 Gram Negative Rods [place] Count >100,000 CFU/ml Organism 2 Gram Negative Rods#2 [place] Count >100,000 CFU/ml DAY 3, RESULTS TO FOLLOW Urine Culture Preliminary (changed) 12/18/22 Organism 1 Gram Negative Rods [place] Count >100,000 CFU/ml Organism 2 Gram Negative Rods#2 [place] Count >100,000 CFU/ml DAY 2, RESULTS TO FOLLOW Urine Culture Preliminary (changed) 12/17/22 Organism 1 Gram Negative Rods [place] Count >100,000 CFU/ml Organism 2 Gram Negative Rods#2 [place] Count >100,000 CFU/ml MUST SUBCULTURE TO ISOLATE RESULTS TO FOLLOW A&P Assessment and plan (1) MRSA (methicillin resistant Staphylococcus aureus) septicemia: Patient with known bladder cancer status post transurethral resection of the bladder tumor in January 2022, thereafter found to have metastatic lymphadenopathy in chest retroperitoneum and pelvis and bony metastases as of most recent PET scan in 11/2022. Currently on treatment with carboplatin/gemcitabine,erdafitinib, previously on pembrolizumab Presenting to the hospital with sepsis, shock likely a combination of septic shock plus cardiogenic shock from pericardial tamponade, DIC with hospital course complicated by cardiac arrest intraoperatively while undergoing pericardial window, status post ROSC Blood cultures during course of admission positive for MRSA from December 16, 2022. Susceptibility is pending. It appears in discussion with the lab that isolate has not been set up on the micro scan yet. Requested to expedite the latter. Also requested susceptibilities from the catheter tip culture, presuming the isolate would be MRSA. s/p port removal on 12/18 Blood culture from December 18, 2022 thus far negative to date continue treatment with renally dosed IV vancomycin with traget trough of 15-20. Vancomycin to continue for MRSA bacteremia for total 6 weeks (12/18-01/29) Okay to place PICC once platelets recover Consider changing RIJ CVC once >7 days old if PICC is still unable to be placed FRANCIS negative for endocarditis (2) UTI (urinary tract infection): Previously patient noted to have moderate right hydronephrosis and also mild left hydroureter, however on the most recent CT KUB on December 16, 2022, there is no evidence of hydronephrosis in either kidney. Urine cx with E.coli and Proteus vulgaris both isolates s/t cipro S/p meropenem ----> Ciprofloxacin 400 mg iv q12h, convert to po once patient agreeable to take oral medications Recommend 10 day course for UTI (12/16-12/25) (3) Pericardial effusion with cardiac tamponade: Etiology unclear at this time. Review of prior imaging and notes reveals that pericardial effusion has been slowly increasing since August 2022. Possible cause of pericardial effusion may be malignant versus infectious versus autoimmune from pembrolizumab. Biopsy is pending. Unfortunately no culture data is available from OR. 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 Otherwise remains off pressors, other clinical parameters improving (5) Acute respiratory failure: management per primary (6) Cardiac arrest: Likely related to pericardial tamponade Plan Thank you for this consult. I will be off call and away for the next week and unable to see patient physically on rounds. Please call with any further questions or clinical concerns. Patient to receive 6 weeks of IV vancomycin for MRSA septicemia status post port removal. While on the IV vancomycin recommend to obtain weekly vancomycin troughs to ensure level between 15-20 and creatinine levels. These may be faxed over to ID clinic for review if patient elects to return home with home health. If patient transitions to [facility] facility, levels may be monitored appropriately at SNF. Attestations Medical Necessity Statement*: per admitting note Coding Level of Care Code Acute Code for Chg Fwd High MDM includes number and complexity of problems actively addressed during encounter, amount and/or complexity of data reviewed/ordered and described risk of complication, morbidity or mortality of management as documented Diagnoses MRSA (methicillin resistant Staphylococcus aureus) septicemia A41.02 UTI (urinary tract infection) N39.0 Pericardial effusion with cardiac tamponade I31.39; I31.4 Leukocytosis D72.829 Acute respiratory failure J96.00 Cardiac arrest I46.9
[2022-12-22 11:11] LABS: Vitamin B12 (Cobalamin) 1855 pg/mL (200-1100)
--- NOTE | 2022-12-22 11:32 | P.PN_ITS ---
Subjective Subjective: Postop day #6 status post urgent subxiphoid pericardial window due to cardiac tamponade. Pericardial biopsy has returned consistent with metastatic carcinoma. Pericardial drain output 80 cc overnight. Platelet count 18,000. Vitals/I&O/Wt Last Vital Signs Temp 97.6 F 12/22/22 04:00 Pulse 98 12/22/22 10:00 Resp 26 H 12/22/22 10:00 BP 139/71 12/22/22 10:00 Pulse Ox 93 12/22/22 10:00 O2 Del Method Nasal Cannula 12/22/22 08:16 O2 Flow Rate 1 12/22/22 08:16 FiO2 35 12/19/22 13:11 12/21/22 12/22/22 12/22/22 22:59 06:59 14:59 Intake Total 450 / 1400 1736 / 3136 200 / 200 Output Total 825 / 855 350 / 1205 85 / 85 Balance -375 / 545 1386 / 1931 115 / 115 Physical Exam Chest: OTHER: Surgical site is clean and dry. Dressing changes are occurring daily by nursing service. Urinary Catheter Management: Coffman: Cath Placed During This Visit: yes Reason for Continuing Indwelling Catheter: Accurate Measurement of Urinary Ou tput in Critically Ill Patients Urinary Catheter Date of Insertion: 12/16/22 Urinary Catheter Time of Insertion: 14:02 Data 12/22/22 05:02 12/22/22 05:02 Micro: Microbiology 12/21/22 12:00 Urine Culture - Preliminary Urine,Clean Catch A&P Assessment and plan (1) Malignant pericardial effusion in disease classified elsewhere: Postop day #6 status post emergent subxiphoid pericardial window due to cardiac tamponade with pathology returning consistent with malignant pericardial effusion Pericardial drain output to just over 100 cc daily. I am hesitant to remove the drain at this time related to the low platelet count of 18,000. I have conferred with my hospitalist colleague Dr. Jiménez. We will drain in for now for hopeful recovery of platelet count. Attestations Medical Necessity Statement*: Status post urgent pericardial drainage due to malignant pericardial effusion with tamponade Coding Level of Care Code Acute Code for Chg Fwd Diagnoses Malignant pericardial effusion in disease classified elsewhere I31.31
[2022-12-22] MEDS: vancomycin 750 MG in sodium chloride 0.9% 250 ML 250 MG IV (11:41)
[2022-12-22] MEDS: guaiFENesin 100 mg/5 mL UDC 10 mL 200 MG PO (11:41)
[2022-12-22] MEDS: FUROsemide 10 mg/mL SDV 2mL 20 MG IVP (11:41)
--- NOTE | 2022-12-22 13:44 | PC.NURSE ---
refused to get up in chair or am care ,, I hurt too bad at this time pain med and anxiety med given reposition urine output increased
[2022-12-22] MEDS: benzonatate 100 mg Capsule PO ×2 (15:13→21:07)
--- NOTE | 2022-12-22 16:24 | P.PN_ITS ---
Subjective Subjective: No acute events overnight. Patient has remained hemodynamically stable and afebrile. Currently on 1 to 1-1/2 L of oxygen supplementation. Complaining of cough today. As per nursing staff patient has had few episodes of hemoptysis with blood-streaked sputum on coughing. Patient states she is feeling slightly congested. Overall urine output of around 2 L yesterday with the drain of around 95 cc. Overall patient is around 6.5 L positive. Blood work today shows mild resolution in leukocytosis down to 12.8, stable hemoglobin around 8.9, stable thrombocytopenia around 18,000, resolution of hyponatremia at 136, resolution of INDRA with creatinine of 0.8, AST/ALT of 60/49 and improving, bilirubin of 1.1, alkaline phosphatase of 110, albumin of 1.8 Hospital course, labs appreciated. On examination patient laying comfortably in bed. Has chest tube and pericardial drain in place. States overall feeling slightly better but complains of generalized weakness and nausea. Documented urine output of around urine output of 2900 cc yesterday with chest tube and pericardial drain having 95 cc. Patient is off pressors. Hemodynamically stable. Currently on 2 L of oxygen supplementation. Blood work shows a stable leukocytosis at 18.7, hemoglobin of 9.1, platelet count of 16,000, CMP showing mild hyponatremia at 133, creatinine improving to 1.1, bilirubin of 1.3, AST/ALT of 66/60 which is trending down, elevated alkaline phosphatase at 121. Appreciate blood cultures and urine culture results. Medications: Reviewed: Yes Vitals/I&O/Wt Last Vital Signs Temp 98 F 12/22/22 15:30 Pulse 103 H 12/22/22 16:00 Resp 24 H 12/22/22 16:00 BP 126/62 12/22/22 15:30 Pulse Ox 94 12/22/22 15:00 O2 Del Method Nasal Cannula 12/22/22 14:00 O2 Flow Rate 1 12/22/22 14:00 FiO2 35 12/19/22 13:11 12/22/22 12/22/22 12/22/22 06:59 14:59 22:59 Intake Total 1736 / 3136 700 / 700 815 / 1515 Output Total 350 / 1205 1085 / 1085 Balance 1386 / 1931 -385 / -385 815 / 430 Physical Exam Narrative: General exam no distress, on 2 L of oxygen, conversant Neck is supple no lymphadenopathy thyromegaly Cardiovascular regular rate and rhythm, no murmur. Chest tube noted Lungs diminished breath sounds bilaterally. No wheezes or crackles Abdomen soft, bowel sounds are noted Extremities no extraordinary cyanosis clubbing or edema. Right upper extremity with cyanotic right hand especially side of thumb. Cap refill impaired., She has good movement, and I believe it is somewhat better than yesterday. Skin no rash Neuro: Follows all commands Urinary Catheter Management: Coffman: Cath Placed During This Visit: yes Reason for Continuing Indwelling Catheter: Accurate Measurement of Urinary Output in Critically Ill Patients Urinary Catheter Date of Insertion: 12/16/22 Urinary Catheter Time of Insertion: 14:02 Data 12/22/22 05:02 12/22/22 05:02 Micro: Microbiology 12/21/22 12:00 Urine Culture - Preliminary Urine,Clean Catch A&P Assessment and plan (1) MRSA (methicillin resistant Staphylococcus aureus) septicemia: (2) Sepsis: Patient presents to the hospital with sepsis, with concern for septic shock. Septic shock has so far resolved. Keep mean artery pressure 65. Blood cultures growing MRSA, urine culture growing E. coli and Proteus vulgaris. Source of infection most likely port which was removed on 12/18. Culture also g rowing coag positive staph. Blood cultures from 12/18 so far negative. Appreciate ID recommendations. Continue with current antibiotics of IV vancomycin and ciprofloxacin as per culture sensitivities. Monitor trough levels. Antibiotics to be dosed as per renal functions. Patient will most likely need PICC line placement once patient is less thrombotic and platelet counts improved. Currently central line is placed. Will need to be replaced around day 7-10. (3) Pericardial effusion: Patient with significant pericardial effusion, which could also cause hypotension. With concerns for tamponade on admission. Post pericardial window and drain in which 750 cc of bloody fluid was drained. During procedure had cardiopulmonary arrest requiring 1 round of CPR. Currently neurologically intact. Appreciate cardiothoracic recommendation. Monitor output. Fluid studies consistent with malignant pericardial effusion. Given less likelihood of being secondary to immunotherapy we will start tapering steroids. For now taper down to 30 mg prednisone daily. Will most likely stop within next 2 days. (4) Ischemia of right upper extremity: With developing mild gangrene. No signs of infection Most likely in setting of DIC along with arterial line and ABG. Currently stable. Pulses dopplerable. Hand warm to touch with persistent cyanosis of fingertips and nails. Holding off on anticoagulation given significant thrombocytopenia. Continue with physical therapy. (5) Thrombocytopenia: Unknown etiology. Currently stable. Hopefully will start resolving as other lines are improving. Could be secondary to DIC versus TTP versus HLH. Most likely in setting of recovering DIC. Monitor platelet count daily. Watch for anemia. Hold off on transfusion. Appreciate hematology recommendations. Holding off on transfusion as patient is still at a higher risk of thrombosis. Appreciate trend of LDH and ferritin. Recheck D-dimer trending down. (6) INDRA (acute kidney injury): Most likely in setting of septic shock. Resolved. Strict input output charting, daily weights. IV fluids stopped. Patient overall over 6 L positive. Coffman catheter in place. Medical reconciliation done for nephrotoxic drugs. No electrolyte abnormality. Monitor BMP daily. (7) Acute respiratory failure: Patient with acute respiratory failure during cardiac arrest. She is intubated and sedated. Able to be extubated successfully on 12/19. Currently on 2 L of oxygen supplementation. Maintain saturation over 90%. Continue with Pulmicort and albuterol. Incentive spirometry. (8) Hemoptysis: Most likely in setting of mild fluid overload along with bronchitis given recent extubation. Though less likely cannot rule out pulmonary embolism as patient is not on an ticoagulation given significant thrombocytopenia. Patient so far hemodynamically stable and not requiring higher oxygen supplementation. Hemoptysis seems to be very slight. We will hold off on CTA given recovering INDRA and less likelihood. IV Lasix 20 mg one-time. Stop IV fluids. Continue to monitor. Start on Tessalon Perles scheduled and Robitussin as needed. (9) Transaminitis: Likely secondary to sepsis, elevation secondary to cardiac arrest. LFTs improving (10) Cardiac arrest: Status postcardiac arrest with induction. She required 2 minutes, 1 cycle, of CPR. She appears to be following direction and is likely neurologically intact. Continue to follow closely. 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 Last treatment around November 12 (15) Hyponatremia: Resolving. Continue to monitor daily. (16) Hyperkalemia: Resolved (17) UTI (urinary tract infection): Appreciate urine cultures. Antibiotics changed as above. (18) Hypotension: Patient initially hypotensive secondary to sepsis versus tamponade. This has resolved Plan Anemia: Most likely in setting of severe sepsis, DIC. Post 2 unit of blood transfusion during hospitalization. Check iron panel, reticulocyte count, vitamin B12 and folate levels. Keep hemoglobin over 8. Will transfuse accordingly. Hemoglobin so far stable. Lines: Right-sided IJ, Coffman catheter Analgesia: Oxycodone 10 mg twice daily, oxycodone IR 5 mg every 6 hours as needed. As per home regimen Glycemic control: Not needed. Nutrition: GI soft diet. Will add Ensure protein shakes with each meal CODE STATUS: Discussed in detail with patient. will be the DPOA. She wants to remain full code. PUD prophylaxis: Protonix twice daily DVT prophylaxis: Holding off on DVT prophylaxis given significant thrombocytopenia. SCDs. Discharge planning: We will plan once patient is more stable. Patient will most likely need SNF placement Continue with care at ICU level This documentation was created by [employer] manager winter software. Every effort was made to ensure accuracy of manager winter. Any obvious errors or omissions should be clarified with the author of the document. Attestations Medical Necessity Statement*: Patient requires further hospitalization for management of MRSA bacteremia, malignant pericardial effusion with tamponade post pericardiectomy, postcardiac arrest, respiratory failure postextubation, significant thrombocytopenia, recovering DIC with critical limb ischemia. Coding Level of Care Code Critical Care >/= 30 minutes Critical care time (in minutes): 80 The high probability of a clinically significant, sudden or life threatening deterioration, as referenced in this documentation, required my full and direct attention, intervention and personal management. The critical care time shown is in addition to time spent performing any reported separately billable procedures and includes the following: [x] Data and vital sign review and interpretation [x ] Patient assessment, examination and intervention [x] Medication orders and management [x] Patient/Family updates as able [x] Care Coordination and Documentation. Diagnoses MRSA (methicillin resistant Staphylococcus aureus) septicemia A41.02 Sepsis A41.9 Pericardial effusion I31.39 Ischemia of right upper extremity I99.8 Thrombocytopenia D69.6 INDRA (acute kidney injury) N17.9 Acute respiratory failure J96.00 Hemoptysis R04.2 Transaminitis R74.01 Cardiac arrest I46.9 Pericardial effusion with cardiac tamponade I31.39; I31.4 Malignant pericardial effusion in disease classified elsewhere I31.31 Hypoalbuminemia E88.09 Metastatic urothelial carcinoma C79.10 Hyponatremia E87.1 Hyperkalemia E87.5 UTI (urinary tract infection) N39.0 Hypotension I95.9
[2022-12-22] MEDS: nystatin 100,000 unit/mL UDC 5 mL 100000 UNIT PO (21:06)
[2022-12-23] VITALS (53 sets, daily range): BP systolic 88–161; BP diastolic 53–93; PULSE 89–114; RESP 16–35; O2SAT 91–98
[2022-12-23] MEDS: oxyCODONE 5 mg IR Tab/Cap PO ×5 (01:25→20:05)
[2022-12-23] MEDS: ciprofloxacin 400 MG/200 ML PREMIX 200 MG IV ×2 (04:00→15:20)
[2022-12-23 04:16] LABS: Basophils % 0.1 %; Eosinophils % 0.1 %; Hematocrit 29.2 % (36-47); Lymphocytes # 0.7 10^3/uL (0.8-4.8); Lymphocytes % 6.7 %; Mean Corpuscular HGB Conc 30.1 g/dL (30-55); Mean Corpuscular Hemoglobin 31.4 pg (27-33); Mean Corpuscular Volume 104.3 fl (85-98); Monocytes # 1.1 10^3/uL (0.2-0.9); Monocytes % 10.4 %; Neutrophils # 8.22 10^3/uL (1.8-7.7); Neutrophils % 80.4 %; Nucleated Red Blood Cells % 0 %; Red Cell Distribution Width 24.1 % (12.1-15.1); White Blood Count 10.21 10^3/uL (3.29-11.43)
[2022-12-23 04:34] LABS: Alanine Aminotransferase 40 U/L (0-33); Alkaline Phosphatase 106 U/L (35-105); Anion Gap 8.3 (5-19); Aspartate Amino Transferase 44 U/L (0-32); Blood Urea Nitrogen 26 mg/dL (8-23); Calcium 7.4 mg/dL (8.5-10.5); Carbon Dioxide 28 mmol/L (22-29); Chloride 99 mmol/L (98-107); Globulin 2.1 g/dL (1.3-4.6); Glomerular Filtration Rate 85.1 mL/min (90-130); Glucose 79 mg/dL (65-115); Osmolality Calculated 278 mOsm/kg (285-295); Potassium 3.3 mmol/L (3.5-5.1); Sodium 132 mmol/L (136-145); Total Protein 4.1 g/dL (6.6-8.7)
[2022-12-23 04:41] LABS: Magnesium 1.4 mg/dL (1.7-2.3)
[2022-12-23 05:10] LABS: Platelet Count 21 10^3/cmm (157-399); Slide Review Slide Review Perform
[2022-12-23] MEDS: potassium chloride ER 20 mEq Tablet 40 MEQ PO (05:27)
[2022-12-23] MEDS: magnesium sulfate premix 1 GM/100 ML PIGGYBACK IV (05:27)
[2022-12-23] MEDS: vancomycin 750 MG in sodium chloride 0.9% 250 ML 250 MG IV ×2 (05:27→23:03)
--- NOTE | 2022-12-23 06:27 | P.PN_ITS ---
Subjective Subjective: Postop day #7 status post urgent subxiphoid pericardial window due to cardiac tamponade with hemodynamic collapse. Platelet count is beginning to rise. Low pericardial drain output reported by nursing service. Pericardial drain discontinued. Vitals/I&O/Wt Last Vital Signs Temp 97.9 F 12/22/22 21:31 Pulse 91 12/23/22 06:00 Resp 25 H 12/23/22 06:00 BP 141/77 12/23/22 06:00 Pulse Ox 93 12/23/22 06:00 O2 Del Method Nasal Cannula 12/22/22 19:15 O2 Flow Rate 1 12/22/22 19:15 FiO2 35 12/19/22 13:11 12/22/22 12/22/22 12/23/22 14:59 22:59 06:59 Intake Total 700 / 700 1565 / 2265 300 / 2565 Output Total 1085 / 1085 810 / 1895 600 / 2495 Balance -385 / -385 755 / 370 -300 / 70 Weight last 48 hrs Weight 106 lb Physical Exam Chest: OTHER: Pericardial drain discontinued. Subxiphoid incision is intact and dry. Urinary Catheter Management: Coffman: Cath Placed During This Visit: yes Reason for Continuing Indwelling Catheter: Accurate Measurement of Urinary Output in Critically Ill Patients Urinary Catheter Date of Insertion: 12/16/22 Urinary Catheter Time of Insertion: 14:02 Data 12/23/22 03:53 12/23/22 03:53 Micro: Microbiology 12/21/22 12:00 Urine Culture - Preliminary Urine,Clean Catch A&P Assessment and plan (1) Malignant pericardial effusion in disease classified elsewhere: Subxiphoid pericardial drain discontinued Daily dressing changes. [place] incision with Betadine with each dressing change. Greatly appreciate expertise and oversight of our hospitalist colleagues. Attestations Medical Necessity Statement*: Postop day #7 status post subxiphoid pericardial window due to cardiac tamponade for malignant effusion. Coding Level of Care Code Acute Code for Chg Fwd Diagnoses Malignant pericardial effusion in disease classified elsewhere I31.31
[2022-12-23] MEDS: predniSONE 20 mg Tablet 30 MG PO (09:09)
[2022-12-23] MEDS: oxyCODONE 10 mg ER (12 HR) Tablet PO ×2 (09:09→17:42)
[2022-12-23] MEDS: sennosides-docusate Tablet 1 TAB PO ×2 (09:10→17:42)
[2022-12-23] MEDS: benzonatate 100 mg Capsule PO ×3 (09:10→20:06)
[2022-12-23] MEDS: docusate sodium 100 mg Capsule PO ×2 (09:10→17:42)
[2022-12-23] MEDS: pantoprazole DR 40 mg Tablet PO ×2 (09:10→17:42)
[2022-12-23] MEDS: nystatin 100,000 unit/mL UDC 5 mL 100000 UNIT PO ×3 (09:10→20:23)
[2022-12-23] MEDS: fluticasone nasal spray 16gm Btl 2 SPRAY NASAL (09:12)
[2022-12-23] MEDS: guaiFENesin 600 mg Tablet PO ×2 (12:10→17:42)
--- NOTE | 2022-12-23 13:08 | P.PN_ITS ---
Subjective Subjective: Reports she is having nasal and chest congestion. Coughing up some phlegm, still some blood in it, but has been clearing up. Tells me pericardial drain had been taken out today. Right hand she reports is about the same, no worsening. Vitals/I&O/Wt Last Vital Signs Temp 97.9 F 12/22/22 21:31 Pulse 103 H 12/23/22 12:30 Resp 22 H 12/23/22 12:30 BP 104/59 12/23/22 12:30 Pulse Ox 93 12/23/22 12:30 O2 Del Method Nasal Cannula 12/23/22 08:00 O2 Flow Rate 1 12/23/22 08:00 FiO2 35 12/19/22 13:11 12/22/22 12/23/22 12/23/22 22:59 06:59 14:59 Intake Total 1565 / 2265 300 / 2565 350 / 350 Output Total 810 / 1895 600 / 2495 Balance 755 / 370 -300 / 70 350 / 350 Weight last 48 hrs Weight 48.081 kg Physical Exam Const: COMMON NORMALS: patient oriented x3 and alert GENERAL APPEARANCE: cooperative ORIENTATION/CONSCIOUSNESS: Yes awake HENMT: COMMON NORMALS: oropharynx normal Neck/C-Spine: COMMON NORMALS: no JVD Resp: COMMON NORMALS: normal respiratory effort and clear to auscultation bilaterally AUSCULTATION: clear to auscultation bilaterally Cardio: COMMON NORMALS: no JVD, regular rhythm, S1 normal heart sound present, S2 normal heart sound present and No murmurs present (Cardio) RHYTHM: regular rhythm HEART SOUNDS: S1 normal heart sound present and S2 normal heart sound present GI: COMMON NORMALS: Normal to inspection, nondistended, normoactive bowel sounds present, Soft to palpation and non-tender PALPATION: Yes Soft to palpation Extremity: COMMON NORMALS: no joint enlargement GENERAL: Yes edema (trace at ankles) OTHER: L hand appearing paler/dusky compared to the other side, black fingertips up to distal MTP on several fingers, she reports without worsening. Neuro: COMMON NORMALS: patient oriented x3 and moves all extremities SENSORIUM/ORIENTATION: Yes alert Urinary Catheter Management: Coffman: Cath Placed During This Visit: yes Reason for Continuing Indwelling Catheter: Accurate Measurement of Urinary Ou tput in Critically Ill Patients Urinary Catheter Date of Insertion: 12/16/22 Urinary Catheter Time of Insertion: 14:02 Data 12/23/22 03:53 12/23/22 03:53 Micro: Microbiology 12/18/22 06:47 Blood Culture - Preliminary Blood Staphylococcus species 12/18/22 15:26 Catheter Tip Culture - Final Other Source Methicillin Resis Staph Aureus 12/16/22 10:33 Blood Culture - Final Blood Methicillin Resis Staph Aureus 12/16/22 10:29 Blood Culture - Final Blood Methicillin Resis Staph Aureus 12/21/22 12:00 Urine Culture - Final Urine,Clean Catch 12/18/22 06:43 Blood Culture - Final Blood NO GROWTH AFTER 5 DAYS A&P Assessment and plan (1) Pericardial effusion: Discussed with her finding of metastatic malignancy on pericardial biopsy. Discussed with oncology. Consideration can be given to second line chemotherapy in case of presence of a target mutation which on additional discussion appears these tests have been performed and mutation is present, which could possibly be targeted with a oral treatment Reviewed CT surgery note. Chest tube had been removed today. Transfer to [facility], continue additional monitoring. Discussed with CT surgery. Continue weaning down prednisone. Discontinue after tomorrow. Patient with significant pericardial effusion, which could also cause hypotension. With concerns for tamponade on admission. Post pericardial window and drain in which 750 cc of bloody fluid was drained. During procedure had cardiopulmonary arrest requiring 1 round of CPR. Currently neurologically intact. (2) MRSA (methicillin resistant Staphylococcus aureus) septicemia: Blood culture 12/16 with MRSA, repeat blood cultures 09/17 with gram-positive cocci but no growth after 5 days. Continue vancomycin. Port-A-Cath has been explanted. (3) Sepsis: Septic shock resolved. Continues on vancomycin and empiric Cipro Tapering off prednisone. Keep mean artery pressure 65. Blood cultures growing MRSA, urine culture growing E. coli and Proteus vulgaris. Source of infection most likely port which was removed on 12/18. Culture also growing coag positive staph. Blood cultures from 12/18 so far negative. Appreciate ID recommendations. Continue with current antibiotics of IV vancomycin and ciprofloxacin as per culture sensitivities. Monitor trough levels. Antibiotics to be dosed as per renal functions. Patient will most likely need PICC line placement once patient is less thrombotic and platelet counts improved. Currently central line is placed. Will need to be replaced around day 7-10. (4) Ischemia of right upper extremity: With developing mild gangrene. No signs of infection Most likely in setting of DIC along with arterial line and ABG. Currently stable. Pulses dopplerable. Hand warm to touch with persistent cyanosis of fingertips and nails. Holding off on anticoagulation given significant thrombocytopenia. Continue with physical therapy. (5) Thrombocytopenia: Severe thrombocytopenia. Risk of bleeding. With hemoptysis. Platelet levels reviewed, noted gradual mild improvement. Nontoxic. Discussed with her. Suspected recovering from DIC. Monitor platelet count daily. Watch for anemia. Hold off on transfusion. (6) INDRA (acute kidney injury): Resolved. Reviewed BUN, creatinine, electrolytes. Coffman catheter in place. Follow-up chemistry. (7) Acute respiratory failure: Feeling congested, nasal and chest congestion. Bring up phlegm, some hemoptysis still noted, but she states they have been improving. Some difficulty bringing up phlegm. Discussed with her starting Mucinex, add flutter valve. Continue oxygen support. Wean down as tolerating. Continue I-S. Currently in neutral balance. Monitor for fluid overload, consider diuretic. Patient with acute respiratory failure during cardiac arrest. She is intubated and sedated. Able to be extubated successfully on 12/19. (8) Hemoptysis: Suspect possibly secondary to bronchitis. Hemoptysis clearing up. Add scheduled Mucinex. Flutter valve. Continue to monitor platelets. Monitor hemoptysis. Continue to monitor. Start on Tessalon Perles scheduled and Robitussin as needed. (9) Transaminitis: Reviewed liver parameters, transaminitis noted improving/resolving. Likely secondary to sepsis, elevation secondary to cardiac arrest. LFTs improving (10) Cardiac arrest: Status postcardiac arrest with induction. She required 2 minutes, 1 cycle, of CPR. She appears to be following direction and is likely neurologically intact. Continue to follow closely. (11) Pericardial effusion with cardiac tamponade: Status post pericardial window. (12) Malignant pericardial effusion in disease classified elsewhere: (13) Hypoalbuminemia: (14) Metastatic urothelial carcinoma: Patient appears to be on palliative chemotherapy. Last treatment around November 12 (15) Hyponatremia: Resolving. Continue to monitor daily. (16) Hyperkalemia: Resolved (17) UTI (urinary tract infection): Repeat urine culture reviewed. Noted no growth. Most recent blood culture reviewed, Staphylococcus species in 2 bottles, but no growth after 5 days. Appreciate urine cultures. Antibiotics changed as above. (18) Hypotension: Patient initially hypotensive secondary to sepsis versus tamponade. This has resolved Plan Hypomagnesemia: Repleted replacement. Recheck magnesium, recheck Mg. Hypokalemia: Received replacement. Recheck chemistry. Anemia: Most likely in setting of severe sepsis, DIC. Post 2 unit of blood transfusion during hospitalization. Appreciated iron panel, not noted iron deficient, folic acid is noted low. B12 without deficiency. Keep hemoglobin over 8. Lines: Right-sided IJ, Coffman catheter Analgesia: Pain relief is short lasting, discussed with her increasing frequency to every 4 hours on oxycodone. Glycemic control: Not needed. Nutrition: GI soft diet. Ensure protein shakes with each meal CODE STATUS: will be the DPOA. She wants to remain full code. PUD prophylaxis: Protonix twice daily DVT prophylaxis: Holding off on DVT prophylaxis given significant thrombocytopenia. SCDs. Discharge planning: We will plan once patient is more stable. Consider SNF This documentation was created by [employer] dye tank tender software. Every effort was made to ensure accuracy of dye tank tender. Any obvious errors or omissions should be clarified with the author of the document. Attestations Medical Necessity Statement*: Continue admission for assessment management following pericardial effusion, tamponade, with finding of malignant effusion, status post drain removal, MRSA bacteremia, resolved sepsis, resolving DIC, severe thrombocytopenia, bronchitis complicated by hemoptysis, additional medical problems as above. Diagnoses Pericardial effusion I31.39 MRSA (methicillin resistant Staphylococcus aureus) septicemia A41.02 Sepsis A41.9 Ischemia of right upper extremity I99.8 Thrombocytopenia D69.6 INDRA (acute kidney injury) N17.9 Acute respiratory failure J96.00 Hemoptysis R04.2 Transaminitis R74.01 Cardiac arrest I46.9 Pericardial effusion with cardiac tamponade I31.39; I31.4 Malignant pericardial effusion in disease classified elsewhere I31.31 Hypoalbuminemia E88.09 Metastatic urothelial carcinoma C79.10 Hyponatremia E87.1 Hyperkalemia E87.5 UTI (urinary tract infection) N39.0 Hypotension I95.9
--- NOTE | 2022-12-23 17:48 | PC.NURSE ---
Patient refusing to turn and work with PT
[2022-12-23 22:55] LABS: Vancomycin Trough 13.5 ug/mL (10-15)
[2022-12-24] VITALS (57 sets, daily range): BP systolic 113–144; BP diastolic 65–86; PULSE 85–99; RESP 15–27; TEMP 36.7–36.9; O2SAT 84–98
[2022-12-24] MEDS: oxyCODONE 5 mg IR Tab/Cap PO ×7 (00:08→23:16)
[2022-12-24] MEDS: ciprofloxacin 400 MG/200 ML PREMIX 200 MG IV ×2 (03:38→16:07)
[2022-12-24 04:39] LABS: Basophils % 0.1 %; Eosinophils % 0.2 %; Hematocrit 28.1 % (36-47); Lymphocytes # 0.4 10^3/uL (0.8-4.8); Lymphocytes % 3.9 %; Mean Corpuscular HGB Conc 30.6 g/dL (30-55); Mean Corpuscular Hemoglobin 32.1 pg (27-33); Mean Corpuscular Volume 104.9 fl (85-98); Mean Platelet Volume 12.8 fL (7.4-10.4); Monocytes # 0.7 10^3/uL (0.2-0.9); Monocytes % 7.2 %; Neutrophils % 87.5 %; Nucleated Red Blood Cells % 0 %; Red Blood Count 2.68 10^6/uL (3.85-5.65); Red Cell Distribution Width 24.3 % (12.1-15.1); White Blood Count 9.83 10^3/uL (3.29-11.43)
[2022-12-24 04:41] LABS: Platelet Count 23 10^3/cmm (157-399)
[2022-12-24 04:59] LABS: Alanine Aminotransferase 32 U/L (0-33); Albumin Level 1.8 g/dL (3.5-5.2); Alkaline Phosphatase 107 U/L (35-105); Anion Gap 10.2 (5-19); Aspartate Amino Transferase 35 U/L (0-32); Blood Urea Nitrogen 26 mg/dL (8-23); Calcium 7.6 mg/dL (8.5-10.5); Carbon Dioxide 26 mmol/L (22-29); Chloride 100 mmol/L (98-107); Globulin 2.2 g/dL (1.3-4.6); Glomerular Filtration Rate 85.1 mL/min (90-130); Glucose 126 mg/dL (65-115); Osmolality Calculated 282 mOsm/kg (285-295); Potassium 3.2 mmol/L (3.5-5.1); Sodium 133 mmol/L (136-145)
[2022-12-24 05:00] LABS: Magnesium 1.4 mg/dL (1.7-2.3)
[2022-12-24] MEDS: potassium chloride premix 100 ML 25 MEQ IV ×3 (05:38→16:55)
[2022-12-24] MEDS: albuterol 2.5 mg/3 mL Neb INHALATION (08:03)
[2022-12-24] MEDS: budesonide 0.5 mg/2 mL Neb INHALATION (08:03)
[2022-12-24] MEDS: guaiFENesin 600 mg Tablet PO ×2 (08:31→18:05)
[2022-12-24] MEDS: oxyCODONE 10 mg ER (12 HR) Tablet PO ×2 (08:32→18:03)
[2022-12-24] MEDS: benzonatate 100 mg Capsule PO ×3 (08:32→20:07)
[2022-12-24] MEDS: sennosides-docusate Tablet 1 TAB PO ×2 (08:33→18:05)
[2022-12-24] MEDS: pantoprazole DR 40 mg Tablet PO ×2 (08:33→18:05)
[2022-12-24] MEDS: predniSONE 20 mg Tablet 30 MG PO (08:33)
[2022-12-24] MEDS: nystatin 100,000 unit/mL UDC 5 mL 100000 UNIT PO ×4 (08:33→20:07)
[2022-12-24] MEDS: magnesium sulfate premix 4 GM/100 ML PREMIX IV (10:02)
[2022-12-24] MEDS: fluticasone nasal spray 16gm Btl 2 SPRAY NASAL (10:03)
[2022-12-24] MEDS: ondansetron 2 mg/ML SDV 2 mL 4 MG IVP ×2 (10:09→17:19)
[2022-12-24] MEDS: FUROsemide 10 mg/mL SDV 2mL 20 MG IVP (10:41)
[2022-12-24 11:00] LABS: Anion Gap 9.8 (5-19); Blood Urea Nitrogen 24 mg/dL (8-23); Calcium 7.8 mg/dL (8.5-10.5); Carbon Dioxide 27 mmol/L (22-29); Chloride 101 mmol/L (98-107); Glomerular Filtration Rate 101.6 mL/min (90-130); Glucose 97 mg/dL (65-115); Osmolality Calculated 282 mOsm/kg (285-295); Potassium 3.8 mmol/L (3.5-5.1); Sodium 134 mmol/L (136-145)
--- NOTE | 2022-12-24 11:00 | PC.NURSE ---
REport given to Balta in CSU. Transferring to room 107
--- NOTE | 2022-12-24 11:30 | SUR.PHASEI ---
TRANSFER NOTE Patient received from Lj MAYO in ICU. Transferred via bed. Report received. IV medications infusing: Mag sulfate infusing as ordered upon arrival via Right IJ. Vitals per flowsheet. Call light in easy reach informed to call for needs. Patient has left upper chest dressing that was changed LIQUEFACTION PLANT OPERATOR today( from portacath removal) Patient has midline chest dressing from that was changed LIQUEFACTION PLANT OPERATOR today (from pericardial window earlier this week) Initial assessment is lungs clear to all wood. Alert and Oriented x3. Right upper extremity is noted to have obvious signs of vasuclar compromise as the tips of the fingers are discolored and black and edematous in appearance. Upper extremity pulses are present and noted to be 1+ to palpation. This finding is not new and the MD is aware- current treatment plan is to watch and assess for changes. Dressing to posterior buttock in place. No skin breakdown is noted there but is placed at patient request to add padding as she is very limited in mobility. Currently her position is upright in bed AT 60 degrees. With assistance of Lj MAYO- she was repostitioned at this time. Edema is present in the posterior aspech of her buttocks and in her upper extremities- assessment is trace to 1+ at this time. She has received Lasix in ICU banquet captain for this. I gave her sprite PO at this time and informed her to call for needs. She understood this well. Pain assessment at this time issd 6/10 in her right arm and buttocks. Position change did help the later assessment and she did receive prn pain medication in ICU just prior to arrival. Her assessment there was 8/10 so she is reporting some relief at this time. Will continue to follow her assessments.
--- NOTE | 2022-12-24 11:52 | SUR.PHASEI ---
see transfer assessment for pain detail
--- NOTE | 2022-12-24 12:05 | SUR.PHASEI ---
O2 AT 2 LPM PER NASAL CANNULA UPON ARRIVAL TO CSU
--- NOTE | 2022-12-24 12:24 | SUR.PHASEI ---
Mag sulfate insuing at arrival from ICU.
--- NOTE | 2022-12-24 13:29 | SUR.PHASEI ---
Patient resting in bed quietly. Eyes closed. No pain per FLACC scale.
--- NOTE | 2022-12-24 14:00 | P.PN_ITS ---
Subjective Subjective: She is having swelling her thighs and hips as well as her arms, worse on the left side, worse in gravity dependent areas, hips and elbows. Perfusion in her right hand has been very slowly showing mild improvement. Medications: Reviewed: Yes Vitals/I&O/Wt Last Vital Signs Temp 98.5 F 12/24/22 08:00 Pulse 88 12/24/22 12:00 Resp 18 12/24/22 12:00 BP 119/67 12/24/22 12:00 Pulse Ox 94 12/24/22 12:00 O2 Del Method Nasal Cannula 12/24/22 12:00 O2 Flow Rate 2 12/24/22 12:00 FiO2 35 12/19/22 13:11 12/23/22 12/24/22 12/24/22 22:59 06:59 14:59 Intake Total 800 / 1150 1050 / 2200 1100 / 1100 Output Total 575 / 575 500 / 1075 125 / 125 Balance 225 / 575 550 / 1125 975 / 975 Weight last 48 hrs Weight 47.174 kg Weight 48.081 kg Physical Exam Const: COMMON NORMALS: patient oriented x3 and alert GENERAL APPEARANCE: cooperative ORIENTATION/CONSCIOUSNESS: Yes awake HENMT: COMMON NORMALS: oropharynx normal Neck/C-Spine: COMMON NORMALS: no JVD Resp: COMMON NORMALS: normal respiratory effort and clear to auscultation bilaterally AUSCULTATION: clear to auscultation bilaterally Cardio: COMMON NORMALS: no JVD, regular rhythm, S1 normal heart sound present, S2 normal heart sound present and No murmurs present (Cardio) RHYTHM: regular rhythm HEART SOUNDS: S1 normal heart sound present and S2 normal heart sound present GI: COMMON NORMALS: Normal to inspection, nondistended, normoactive bowel sounds present, Soft to palpation and non-tender PALPATION: Yes Soft to palpation Extremity: COMMON NORMALS: no joint enlargement GENERAL: Yes edema (trace at ankles. Tender edema of thighs and hips. Elbows.) OTHER: L hand appearing paler/dusky compared to the other side, black fingertips up to distal MTP on several fingers, she reports without worsening. Neuro: COMMON NORMALS: patient oriented x3 and moves all extremities SENSORIUM/ORIENTATION: Yes alert Urinary Catheter Management: Coffman: Cath Placed During This Visit: yes Reason for Continuing Indwelling Catheter: Accurate Measurement of Urinary Output in Critically Ill Patients Urinary Catheter Date of Insertion: 12/16/22 Urinary Catheter Time of Insertion: 14:02 Data 12/24/22 04:30 12/24/22 10:36 Micro: Microbiology 12/18/22 06:43 Blood Culture - Final Blood Methicillin Resis Staph Aureus 12/18/22 06:47 Blood Culture - Final Blood Methicillin Resis Staph Aureus 12/18/22 15:26 Catheter Tip Culture - Final Other Source Methicillin Resis Staph Aureus 12/16/22 10:33 Blood Culture - Final Blood Methicillin Resis Staph Aureus 12/16/22 10:29 Blood Culture - Final Blood Methicillin Resis Staph Aureus 12/21/22 12:00 Urine Culture - Final Urine,Clean Catch A&P Assessment and plan (1) Fluid overload: Additional dose Lasix 20mg IV. Reassess volume status, monitor renal function with recent INDRA, at risk of renal dysfunction with diuresis. At risk of further electrolyte abnormalities with persistent potassium and magnesium deficiency. Continue replacement. Monitor on telemetry. (2) MRSA (methicillin resistant Staphylococcus aureus) septicemia: Blood culture 12/16 with MRSA, repeat blood cultures 09/17 with gram-positive cocci but no growth after 5 days. Continue vancomycin. Port-A-Cath has been explanted. Reviewed ID documentation, recommendation for 6 weeks antibiotic therapy until 01/29 with vancomycin. Esteban trough noted 13.5 with vancomycin 750 mg every 18 hours currently. Discussed with pharmacist, will adjust dose to 1g Q18h. Would plan for that dose at DC with adjustment possibly needed depending on further troughs and renal function. (3) Pericardial effusion: Discussed with her regarding possibly of targeted with a oral treatment. Discussed with patient. She would like to try to set the goal of returning home. Discussed with case assistant. Lives at home with her . Reviewed CT surgery note. Chest tube had been removed today. Transfer to [facility], continue additional monitoring. Discussed with CT surgery. Continue weaning down prednisone. Discontinue after tomorrow. Patient with significant pericardial effusion, which could also cause hypotension. With concerns for tamponade on admission. Post pericardial window and drain in which 750 cc of bloody fluid was drained. During procedure had cardiopulmonary arrest requiring 1 round of CPR. Currently neurologically intact. (4) Sepsis: Septic shock resolved. Continues on vancomycin and empiric Cipro Tapering off prednisone. Keep mean artery pressure 65. Blood cultures growing MRSA, urine culture growing E. coli and Proteus vulgaris. Source of infection most likely port which was removed on 12/18. Culture also growing coag positive staph. Blood cultures from 12/18 so far negative. Appreciate ID recommendations. Continue with current antibiotics of IV vancomycin and ciprofloxacin as per culture sensitivities. Monitor trough levels. Antibiotics to be dosed as per renal functions. Patient will most likely need PICC line placement once patient is less thrombotic and platelet counts improved. Currently central line is placed. Will need to be replaced around day 7-10. (5) Ischemia of right upper extremity: Gradually and very slowly improving perfusion in the right hand. Persistent blackened distal fingers. Able to slowly open and close the hand. With developing mild gangrene. No signs of infection Most likely in setting of DIC along with arterial line and ABG. Currently stable. Pulses dopplerable. Hand warm to touch with persistent cyanosis of fingertips and nails. Holding off on anticoagulation given significant thrombocytopenia. Continue w ith physical therapy. (6) Thrombocytopenia: Platelet level reviewed. Severe thrombocytopenia but has been gradually improving. Up to 23,000 today. Discussed with her. We will repeat DIC profile. Repeat CBC. Severe thrombocytopenia. Risk of bleeding. With hemoptysis. Platelet levels reviewed, noted gradual mild improvement. Nontoxic. Discussed with her. Suspected recovering from DIC. Monitor platelet count daily. Watch for anemia. Hold off on transfusion. (7) INDRA (acute kidney injury): Renal function reviewed. Vancomycin trough reviewed. Discussed with pharmacist. Resolved. Reviewed BUN, creatinine, electrolytes. Coffman catheter in place. Follow-up chemistry. (8) Acute respiratory failure: Feeling congested, nasal and chest congestion. Bring up phlegm, some hemoptysis still noted, but she states they have been improving. Some difficulty bringing up phlegm. Discussed with her starting Mucinex, add flutter valve. Continue oxygen support. Wean down as tolerating. Continue I-S. Currently in neutral balance. Monitor for fluid overload, consider diuretic. Patient with acute respiratory failure during cardiac arrest. She is intubated and sedated. Able to be extubated successfully on 12/19. (9) Hemoptysis: Suspect possibly secondary to bronchitis. Hemoptysis clearing up. Add scheduled Mucinex. Flutter valve. Continue to monitor platelets. Monitor hemoptysis. Continue to monitor. Start on Tessalon Perles scheduled and Robitussin as needed. (10) Transaminitis: Reviewed liver parameters, transaminitis noted improving/resolving. Likely secondary to sepsis, elevation secondary to cardiac arrest. LFTs improving (11) Cardiac arrest: Status postcardiac arrest with induction. She required 2 minutes, 1 cycle, of CPR. She appears to be following direction and is likely neurologically intact. Continue to follow closely. (12) Pericardial effusion with cardiac tamponade: Status post pericardial window. (13) Malignant pericardial effusion in disease classified elsewhere: (14) Hypoalbuminemia: (15) Metastatic urothelial carcinoma: Patient appears to be on palliative chemotherapy. Last treatment around November 12 (16) Hyponatremia: Resolving. Continue to monitor daily. (17) Hyperkalemia: Resolved (18) UTI (urinary tract infection): Repeat urine culture reviewed. Noted no growth. Most recent blood culture reviewed, Staphylococcus species in 2 bottles, but no growth after 5 days. Appreciate urine cultures. Antibiotics changed as above. (19) Hypotension: Patient initially hypotensive secondary to sepsis versus tamponade. This has resolved Plan Hypomagnesemia: Magnesium level reviewed. Again noted hypomagnesemia, 1.4. Give additional 4 g magnesium. Recheck magnesium. Hypokalemia: Received replacement. Recheck K. Anemia: Most likely in setting of severe sepsis, DIC. Post 2 unit of blood transfusion during hospitalization. Appreciated iron panel, not noted iron deficient, folic acid is noted low. B12 without deficiency. Keep hemoglobin over 8. Lines: Right-sided IJ, Coffman catheter Analgesia: Pain relief is short lasting, discussed with her increasing frequency to every 4 hours on oxycodone. Glycemic control: Not needed. Nutrition: GI soft diet. Ensure protein shakes with each meal CODE STATUS: will be the DPOA. She wants to remain full code. PUD prophylaxis: Protonix twice daily DVT prophylaxis: Holding off on DVT prophylaxis given significant thrombocytop enia. SCDs. Discharge planning: We will plan once patient is more stable. Consider SNF Diet: Discussed with dietitian, recommendation for regular diet. Advance. This documentation was created by [employer] medical operations supervisor software. Every effort was made to ensure accuracy of medical operations supervisor. Any obvious errors or omissions should be clarified with the author of the document. Attestations Medical Necessity Statement*: Continue admission for assessment management of fluid overload, diuresis, electrolyte replacement with persistent deficiency, IV antibiotic treatment, pending arrangements for postdischarge treatment to complete 6 weeks of antibiotics following MRSA bacteremia, and reassessment of severe thrombocytopenia, additional medical problems as above. Diagnoses Fluid overload E87.70 MRSA (methicillin resistant Staphylococcus aureus) septicemia A41.02 Pericardial effusion I31.39 Sepsis A41.9 Ischemia of right upper extremity I99.8 Thrombocytopenia D69.6 INDRA (acute kidney injury) N17.9 Acute respiratory failure J96.00 Hemoptysis R04.2 Transaminitis R74.01 Cardiac arrest I46.9 Pericardial effusion with cardiac tamponade I31.39; I31.4 Malignant pericardial effusion in disease classified elsewhere I31.31 Hypoalbuminemia E88.09 Metastatic urothelial carcinoma C79.10 Hyponatremia E87.1 Hyperkalemia E87.5 UTI (urinary tract infection) N39.0 Hypotension I95.9
--- NOTE | 2022-12-24 14:50 | SUR.PHASEI ---
Reports right arm pain at 9.5 out of 10. States her arm is throbbing. PRN pain medication administered at 1556. General appearance of the hand is unchanged. I used a doppler to assess the radial and ulnar pulses of the right hand and they are infact still present. I think the patient was slighltly worried and fixated that her hand was worse, because after hearing the doppler waveform be present she felt better and was relieved. I told her i would be back to reassess her in about 30 minutes or so. I changed her positioin in bed with assistance of another nurse and elevated her upper extremities on pillows. She states the interventions did help. Call light in reach. Informed to call for needs.
[2022-12-24] MEDS: vancomycin 1,000 MG in sodium chloride 0.9% 250 ML 250 MG IV (17:10)
--- NOTE | 2022-12-24 22:02 | USR_ITS ---
PROCEDURE INFORMATION: Exam: US Duplex Right Upper Extremity Veins, Limited Exam date and time: 12/24/2022 10:29 PM Age: 62 years old Clinical indication: Edema, localized; Upper extremity, right; Arm, lower; Patient HX: Venous duplex imaging was performed in only the right upper extremity. The following venous structures were evaluated: Internal jugular vein, subclavian vein, axillary vein, and brachial veins. In addition, the basilic vein, cephalic vein, radial vein, and ulnar vein. Serial compression, augmentation maneuvers, and spectral doppler flow evaluation were performed, which were normal. A catheter is visualized in the right internal jugular vein. Note that a right upper extremity arterial duplex was done on 12/17/2022 showing occlusion of the distal right radial artery following an arterial blood draw from the right radial artery. She has black necrosis of the tip of the right thumb and right 4th fingertip. C/O pain in the right distal forearm with increasing edema of the right upper extremity. TECHNIQUE: Imaging protocol: Real-time duplex ultrasound of the right Upper Extremity with 2-D akins scale, color Doppler flow and spectral waveform analysis with image documentation. Limited exam focused on the right upper extremity veins. COMPARISON: [place] [id number] 12/17/2022 8:43 PM FINDINGS: Right deep veins: Right internal jugular vein catheter. Right radial artery: Incidentally noted is suspected occlusion of the mid to distal right radial artery, as previously reported on arterial ultrasound from 12/17/2022. Superficial veins: Unremarkable. Visualized cephalic and basilic veins are patent without thrombus. Soft tissues: Subcutaneous edema at the forearm. US/[place] [id number] IMPRESSION: 1. Negative for deep venous thrombosis. 2. Right internal jugular vein catheter. 3. Incidentally noted is suspected occlusion of the mid to distal right radial artery, as previously reported on arterial ultrasound from 12/17/2022. 4. Subcutaneous edema at the forearm.
[2022-12-24] MEDS: LORazepam 0.5 mg Tablet PO (22:27)
[2022-12-25] VITALS (25 sets, daily range): BP systolic 108–158; BP diastolic 60–103; PULSE 85–98; RESP 13–24; TEMP 36.6–37.3; O2SAT 94–99; BMI 19.3
--- NOTE | 2022-12-25 02:10 | PC.NURSE ---
Patient stated they were having increase pain in right forearm where previous occlusion was noted. Temperature of effected area was also warm to the touch when compared proximal right upper arm and arm on the unaffected side. Dr Duenas was notified, and came to assess patient. New orders were then given.
[2022-12-25] MEDS: ciprofloxacin 400 MG/200 ML PREMIX 200 MG IV ×2 (02:36→15:08)
[2022-12-25] MEDS: oxyCODONE 5 mg IR Tab/Cap PO ×5 (02:36→21:29)
[2022-12-25 04:44] LABS: Basophils % 0.2 %; Eosinophils % 0.2 %; Hematocrit 27.4 % (36-47); Lymphocytes # 0.4 10^3/uL (0.8-4.8); Lymphocytes % 4.1 %; Mean Corpuscular HGB Conc 29.2 g/dL (30-55); Mean Corpuscular Hemoglobin 32.7 pg (27-33); Mean Corpuscular Volume 111.8 fl (85-98); Mean Platelet Volume 12.6 fL (7.4-10.4); Monocytes # 0.6 10^3/uL (0.2-0.9); Neutrophils # 7.97 10^3/uL (1.8-7.7); Neutrophils % 87.5 %; Nucleated Red Blood Cells % 0 %; Platelet Count 30 10^3/cmm (157-399); Red Blood Count 2.45 10^6/uL (3.85-5.65); Red Cell Distribution Width 24.7 % (12.1-15.1); White Blood Count 9.11 10^3/uL (3.29-11.43)
[2022-12-25 04:54] LABS: Fibrinogen 399 mg/dL (174-498); INR 1.27 (0.8-1.2); Partial Thromboplastin Time 32.5 SECONDS (23.9-36.7)
[2022-12-25 04:57] LABS: D Dimer 13.16 ug/mLFEU (0-0.59)
[2022-12-25 05:02] LABS: Magnesium 1.9 mg/dL (1.7-2.3)
[2022-12-25 05:03] LABS: Alanine Aminotransferase 39 U/L (0-33); Albumin Level 1.6 g/dL (3.5-5.2); Alkaline Phosphatase 148 U/L (35-105); Aspartate Amino Transferase 40 U/L (0-32); Blood Urea Nitrogen 24 mg/dL (8-23); Calcium 7.5 mg/dL (8.5-10.5); Carbon Dioxide 24 mmol/L (22-29); Chloride 103 mmol/L (98-107); Globulin 2.5 g/dL (1.3-4.6); Glomerular Filtration Rate 85.1 mL/min (90-130); Glucose 131 mg/dL (65-115); Osmolality Calculated 282 mOsm/kg (285-295); Sodium 133 mmol/L (136-145); Total Bilirubin 0.7 mg/dL (0.15-1.2); Total Protein 4.1 g/dL (6.6-8.7)
[2022-12-25] MEDS: LORazepam 0.5 mg Tablet PO ×2 (05:07→19:50)
[2022-12-25 05:09] LABS: Anion Gap 10.3 (5-19); Potassium 4.3 mmol/L (3.5-5.1)
[2022-12-25] MEDS: albuterol 2.5 mg/3 mL Neb INHALATION ×2 (08:17→20:03)
[2022-12-25] MEDS: budesonide 0.5 mg/2 mL Neb INHALATION ×2 (08:17→20:03)
[2022-12-25] MEDS: predniSONE 20 mg Tablet 30 MG PO (10:20)
[2022-12-25] MEDS: docusate sodium 100 mg Capsule PO (10:21)
[2022-12-25] MEDS: guaiFENesin 600 mg Tablet PO ×2 (10:21→17:42)
[2022-12-25] MEDS: benzonatate 100 mg Capsule PO ×3 (10:21→21:24)
[2022-12-25] MEDS: pantoprazole DR 40 mg Tablet PO ×2 (10:21→17:41)
[2022-12-25] MEDS: oxyCODONE 10 mg ER (12 HR) Tablet PO ×2 (10:21→18:40)
[2022-12-25] MEDS: nystatin 100,000 unit/mL UDC 5 mL 100000 UNIT PO ×4 (10:22→21:25)
[2022-12-25] MEDS: sennosides-docusate Tablet 1 TAB PO (10:22)
[2022-12-25] MEDS: fluticasone nasal spray 16gm Btl 2 SPRAY NASAL (10:23)
--- NOTE | 2022-12-25 12:38 | P.PN_ITS ---
Subjective Subjective: Overnight had pain in her right forearm, hand. Currently doing better. No collar in right hand. Right hand is warm. Mild swelling without worsening. Vitals/I&O/Wt Last Vital Signs Temp 99.1 F 12/25/22 07:17 Pulse 98 12/25/22 12:00 Resp 23 H 12/25/22 12:00 BP 158/103 12/25/22 12:00 Pulse Ox 94 12/25/22 12:00 O2 Del Method Nasal Cannula 12/25/22 12:00 O2 Flow Rate 1.5 12/25/22 09:05 FiO2 35 12/19/22 13:11 12/24/22 12/25/22 12/25/22 22:59 06:59 14:59 Intake Total 1070 / 2170 200 / 2370 Output Total 1100 / 1225 600 / 1825 Balance -30 / 945 -400 / 545 Weight last 48 hrs Weight 46.266 kg Weight 47.174 kg Physical Exam Const: COMMON NORMALS: patient oriented x3 and alert GENERAL APPEARANCE: cooperative ORIENTATION/CONSCIOUSNESS: Yes awake HENMT: COMMON NORMALS: oropharynx normal Neck/C-Spine: COMMON NORMALS: no JVD Resp: COMMON NORMALS: normal respiratory effort and clear to auscultation bi laterally AUSCULTATION: clear to auscultation bilaterally Cardio: COMMON NORMALS: no JVD, regular rhythm, S1 normal heart sound present, S2 normal heart sound present and No murmurs present (Cardio) RHYTHM: regular rhythm HEART SOUNDS: S1 normal heart sound present and S2 normal heart sound present GI: COMMON NORMALS: Normal to inspection, nondistended, normoactive bowel sounds present, Soft to palpation and non-tender PALPATION: Yes Soft to palpation Extremity: COMMON NORMALS: no joint enlargement GENERAL: Yes edema (trace at ankles. Tender edema of thighs and hips. Elbows.) OTHER: L hand appearing paler/dusky compared to the other side, black fingertips up to distal MTP on several fingers, she reports without worsening. Neuro: COMMON NORMALS: patient oriented x3 and moves all extremities SENSORIUM/ORIENTATION: Yes alert Urinary Catheter Management: Coffman: Cath Placed During This Visit: yes Reason for Continuing Indwelling Catheter: Accurate Measurement of Urinary Outp ut in Critically Ill Patients Urinary Catheter Date of Insertion: 12/16/22 Urinary Catheter Time of Insertion: 14:02 Data 12/25/22 03:55 12/25/22 03:55 Micro: Microbiology 12/25/22 03:55 Blood Culture - Preliminary Blood SPECIMEN COLLECTED 12/25/22 03:55 Blood Culture - Preliminary Blood SPECIMEN COLLECTED 12/18/22 06:43 Blood Culture - Final Blood Methicillin Resis Staph Aureus 12/18/22 06:47 Blood Culture - Final Blood Methicillin Resis Staph Aureus A&P Assessment and plan (1) Fluid overload: Some improvement in edema. 20 mg p.o. Lasix today. Monitor CRESENCIO. Discussed with her concerns otherwise she does not become intravascularly depleted. Will reassess daily. Reviewed chemistry, sodium, potassium, renal function. Reassess volume status, monitor renal function with recent INDRA, at risk of renal dysfunction with diuresis. At risk of further electrolyte abnormalities with persistent potassium and magnesium deficiency. Continue replacement. Monitor on telemetry. (2) MRSA (methicillin resistant Staphylococcus aureus) septicemia: Discussed with case management social worker, per discussion every 18 dose may be difficult for her to maintain at home shifting schedules. Discussed with pharmacist, can go with 750 mg every 12 hours, will need trough before third dose. Blood culture 12/16 with MRSA, repeat blood cultures 09/17 with gram-positive cocci but no growth after 5 days. Continue vancomycin. Port-A-Cath has been explanted. Reviewed ID documentation, recommendation for 6 weeks antibiotic therapy until 01/29 with vancomycin. Esteban trough noted 13.5 with vancomycin 750 mg every 18 hours currently. Discussed with pharmacist, will adjust dose to 1g Q18h. Would plan for that dose at DC with adjustment possibly needed depending on further troughs and renal function. (3) Ischemia of right upper extremity: Was having some pain in the right forearm, hand overnight. Venous duplex was obtained, noted no DVT, noted incidentally right radial artery occlusion. At bedside dopplerable pulses this morning obtained at the ulnar as well as radial artery. Hand appears similar to yesterday, distal fingertips with blackened appearance, hand is warm, similar in appearance in terms of perfusion. She is able to open and close her hand. Minimal swelling. Monitor symptoms. Discussed with her concern of some reperfusion symptoms, injury, may be at risk of compartment syndrome in case worsening as well. Requested neurovascular checks. Continue to monitor. Gradually and very slowly improving perfusion in the right hand. Persistent blackened distal fingers. Able to slowly open and close the hand. With developing mild gangrene. No signs of infection Most likely in setting of DIC along with arterial line and ABG. Currently stable. Pulses dopplerable. Hand warm to touch with persistent cyanosis of fingertips and nails. Holding off on anticoagulation given significant thrombocytopenia. Continue with physical therapy. (4) Thrombocytopenia: Discussed with her, reviewed blood counts, noted improving platelets up to 30,000. Reviewed DIC profile. Improving D-dimer. Improving fibrinogen. Improving INR. She is still having hemoptysis, although it has been decreasing. Not yet started on prophylactic anticoagulation. Severe thrombocytopenia. Risk of bleeding. With hemoptysis. Platelet levels reviewed, noted gradual mild improvement. Nontoxic. Discussed with her. Suspected recovering from DIC. Monitor platelet count daily. Watch for anemia. Hold off on transfusion. (5) Pericardial effusion: Discussed with her regarding possibly of targeted with a oral treatment. Discussed with patient. She would like to try to set the goal of returning home. Discussed with case management social worker. Lives at home with her . Reviewed CT surgery note. Chest tube had been removed today. Transfer to [facility], continue additional monitoring. Discussed with CT surgery. Continue weaning down prednisone. Discontinue after tomorrow. Patient with significant pericardial effusion, which could also cause hypotension. With concerns for tamponade on admission. Post pericardial window and drain in which 750 cc of bloody fluid was drained. During procedure had cardiopulmonary arrest requiring 1 round of CPR. Currently neurologically intact. (6) Sepsis: Septic shock resolved. Continues on vancomycin and empiric Cipro Tapering off prednisone. Keep mean artery pressure 65. Blood cultures growing MRSA, urine culture growing E. coli and Proteus vulgaris. Source of infection most likely port which was removed on 12/18. Culture also growing coag positive staph. Blood cultures from 12/18 so far negative. Appreciate ID recommendations. Continue with current antibiotics of IV vancomycin and ciprofloxacin as per culture sensitivities. Monitor trough levels. Antibiotics to be dosed as per renal functions. Patient will most likely need PICC line placement once patient is less thrombotic and platelet counts improved. Currently central line is placed. Will need to be replaced around day 7-10. (7) INDRA (acute kidney injury): Renal function reviewed. Vancomycin trough reviewed. Discussed with pharmacist. Resolved. Reviewed BUN, creatinine, electrolytes. Coffman catheter in place. Follow-up chemistry. (8) Acute respiratory failure: Feeling congested, nasal and chest congestion. Bring up phlegm, some hemoptysis still noted, but she states they have been improving. Some difficulty bringing up phlegm. Discussed with her starting Mucinex, add flutter valve. Continue oxygen support. Wean down as tolerating. Continue I-S. Currently in neutral balance. Monitor for fluid overload, consider diuretic. Patient with acute respiratory failure during cardiac arrest. She is intubated and sedated. Able to be extubated successfully on 12/19. (9) Hemoptysis: Slowly improving. Suspect possibly secondary to bronchitis. Scheduled Mucinex. Flutter valve. Continue to monitor platelets. Start on Tessalon Perles scheduled and Robitussin as needed. (10) Transaminitis: Reviewed liver parameters. Overall improving, mild worsening this morning. Follow-up liver parameters. Likely secondary to sepsis, elevation secondary to cardiac arrest. LFTs improving (11) Cardiac arrest: Status postcardiac arrest with induction. She required 2 minutes, 1 cycle, of CPR. She appears to be following direction and is likely neurologically intact. Continue to follow closely. (12) Pericardial effusion with cardiac tamponade: Status post pericardial window. (13) Malignant pericardial effusion in disease classified elsewhere: (14) Hypoalbuminemia: (15) Metastatic urothelial carcinoma: Patient appears to be on palliative chemotherapy. Last treatment around November 12 (16) Hyponatremia: Resolving. Continue to monitor daily. (17) Hyperkalemia: Resolved (18) UTI (urinary tract infection): Repeat urine culture reviewed. Noted no growth. Most recent blood culture reviewed, Staphylococcus species in 2 bottles, but no growth after 5 days. Appreciate urine cultures. Antibiotics changed as above. (19) Hypotension: Patient initially hypotensive secondary to sepsis versus tamponade. This has resolved Plan Hypomagnesemia: Reviewed magnesium, noted 1.9. Reassess in a couple days. Hypokalemia: Reviewed potassium noted WNL. Follow-up chemistry requested. Anemia: Most likely in setting of severe sepsis, DIC. Post 2 unit of blood transfusion during hospitalization. Appreciated iron panel, not noted iron deficient, folic acid is noted low. B12 without deficiency. Keep hemoglobin over 8. Lines: Right-sided IJ, Coffman catheter Analgesia: Pain relief is short lasting, discussed with her increasing frequency to every 4 hours on oxycodone. Glycemic control: Not needed. Nutrition: GI soft diet. Ensure protein shakes with each meal CODE STATUS: will be the DPOA. She wants to remain full code. PUD prophylaxis: Protonix twice daily DVT prophylaxis: Holding off on DVT prophylaxis given significant thr ombocytopenia. SCDs. Discharge planning: We will plan once patient is more stable. Consider SNF Diet: Reviewed albumin, noted low. Add Ensure to regular diet. This documentation was created by [employer] converting supervisor software. Every effort was made to ensure accuracy of converting supervisor. Any obvious errors or omissions should be clarified with the author of the document. Attestations Medical Necessity Statement*: Continue admission for assessment management of fluid overload, diuresis, electrolyte replacement with persistent deficiency, IV antibiotic treatment, pending arrangements for postdischarge treatment to complete 6 weeks of antibiotics following MRSA bacteremia, and reassessment of? severe thrombocytopenia, additional medical problems as above. Diagnoses Fluid overload E87.70 MRSA (methicillin resistant Staphylococcus aureus) septicemia A41.02 Ischemia of right upper extremity I99.8 Thrombocytopenia D69.6 Pericardial effusion I31.39 Sepsis A41.9 INDRA (acute kidney injury) N17.9 Acute respiratory failure J96.00 Hemoptysis R04.2 Transaminitis R74.01 Cardiac arrest I46.9 Pericardial effusion with cardiac tamponade I31.39; I31.4 Malignant pericardial effusion in disease classified elsewhere I31.31 Hypoalbuminemia E88.09 Metastatic urothelial carcinoma C79.10 Hyponatremia E87.1 Hyperkalemia E87.5 UTI (urinary tract infection) N39.0 Hypotension I95.9
[2022-12-25] MEDS: vancomycin 1,000 MG in sodium chloride 0.9% 250 ML 250 MG IV (13:28)
[2022-12-25] MEDS: FUROsemide 20 mg Tablet PO (13:28)
[2022-12-26] VITALS (20 sets, daily range): BP systolic 102–138; BP diastolic 67–78; PULSE 88–99; RESP 16–27; TEMP 36.7–37.2; O2SAT 92–97; BMI 22.9
[2022-12-26] MEDS: albuterol 2.5 mg/3 mL Neb INHALATION ×4 (01:33→20:44)
[2022-12-26] MEDS: oxyCODONE 5 mg IR Tab/Cap PO ×6 (01:35→22:07)
[2022-12-26] MEDS: ondansetron 2 mg/ML SDV 2 mL 4 MG IVP (01:39)
[2022-12-26 02:18] LABS: Fibrinogen Degradation Product 40 mcg/mL (LESS THAN 5)
[2022-12-26 02:18] LABS: Fibrinogen Degradation Product 20 mcg/mL (LESS THAN 5)
[2022-12-26] MEDS: ciprofloxacin 400 MG/200 ML PREMIX 200 MG IV ×2 (04:26→14:47)
[2022-12-26 05:09] LABS: Basophils % 0.1 %; Eosinophils % 0.1 %; Hematocrit 23.9 % (36-47); Lymphocytes # 0.5 10^3/uL (0.8-4.8); Lymphocytes % 4.7 %; Mean Corpuscular Hemoglobin 32.6 pg (27-33); Mean Corpuscular Volume 105.3 fl (85-98); Monocytes # 0.7 10^3/uL (0.2-0.9); Monocytes % 6.7 %; Neutrophils % 87.8 %; Nucleated Red Blood Cells % 0 %; Platelet Count 37 10^3/cmm (157-399); Red Blood Count 2.27 10^6/uL (3.85-5.65); Red Cell Distribution Width 23.6 % (12.1-15.1); White Blood Count 10.02 10^3/uL (3.29-11.43)
[2022-12-26 05:28] LABS: Alanine Aminotransferase 42 U/L (0-33); Albumin Level 1.9 g/dL (3.5-5.2); Alkaline Phosphatase 153 U/L (35-105); Anion Gap 10.5 (5-19); Aspartate Amino Transferase 41 U/L (0-32); Blood Urea Nitrogen 21 mg/dL (8-23); Calcium 7.5 mg/dL (8.5-10.5); Carbon Dioxide 26 mmol/L (22-29); Chloride 100 mmol/L (98-107); Globulin 2.3 g/dL (1.3-4.6); Glomerular Filtration Rate 85.1 mL/min (90-130); Glucose 131 mg/dL (65-115); Osmolality Calculated 281 mOsm/kg (285-295); Potassium 3.5 mmol/L (3.5-5.1); Sodium 133 mmol/L (136-145); Total Bilirubin 0.6 mg/dL (0.15-1.2); Total Protein 4.2 g/dL (6.6-8.7)
[2022-12-26 05:36] LABS: Magnesium 1.6 mg/dL (1.7-2.3)
[2022-12-26] MEDS: vancomycin 1,000 MG in sodium chloride 0.9% 250 ML 250 MG IV (05:47)
--- NOTE | 2022-12-26 07:38 | PC.NURSE ---
Patient has been turned side to side to perform skin care and change linens x4 tonight. Patient was incontinent x 2. Patient refuses tyo lie on either side. We discussed the need to off load pressure from her sacrum. Patient positioned with multiple pillows under her buttocks and both arme for comfort. Further education needed to stress the importance of alternating pressure and increasing time out of bed during the day.
[2022-12-26] MEDS: budesonide 0.5 mg/2 mL Neb INHALATION ×2 (08:00→20:44)
[2022-12-26] MEDS: guaiFENesin 100 mg/5 mL UDC 10 mL 200 MG PO (08:20)
[2022-12-26] MEDS: benzonatate 100 mg Capsule PO ×3 (08:20→20:45)
[2022-12-26] MEDS: nystatin 100,000 unit/mL UDC 5 mL 100000 UNIT PO ×4 (08:21→20:45)
[2022-12-26] MEDS: guaiFENesin 600 mg Tablet PO ×2 (08:21→16:51)
[2022-12-26] MEDS: pantoprazole DR 40 mg Tablet PO ×2 (08:21→16:50)
[2022-12-26] MEDS: LORazepam 0.5 mg Tablet PO ×3 (08:21→22:07)
[2022-12-26] MEDS: oxyCODONE 10 mg ER (12 HR) Tablet PO ×2 (08:22→21:12)
[2022-12-26] MEDS: fluticasone nasal spray 16gm Btl 2 SPRAY NASAL (08:22)
[2022-12-26] MEDS: magnesium sulfate premix 4 GM/100 ML PREMIX IV (09:51)
[2022-12-26] MEDS: FUROsemide 20 mg Tablet PO (12:37)
[2022-12-26] MEDS: heparin 5,000 unit/mL INJ 1 mL 5000 UNIT SUBCUT (13:55)
--- NOTE | 2022-12-26 13:56 | PM.PN ---
Subjective Subjective: Still some pain in the right hand, forearm, but extremities warm, without any worsening appearance, no worsening swelling. Coughing up phlegm with still some clots in them, however, improving, decreasing amount of clot/blood. And improving amount of phlegm. Soft stool, not liquid. Stool softeners were held. Still having edema particularly at hips/thighs, elbows - dependent areas. Vitals/I&O/Wt Last Vital Signs Temp 98.1 F 12/26/22 12:00 Pulse 93 12/26/22 12:00 Resp 18 12/26/22 12:00 BP 104/71 12/26/22 12:00 Pulse Ox 95 12/26/22 12:00 O2 Del Method Nasal Cannula 12/26/22 08:00 O2 Flow Rate 1 12/26/22 08:00 FiO2 35 12/19/22 13:11 12/25/22 12/26/22 12/26/22 22:59 06:59 14:59 Intake Total 690 / 690 960 / 1650 830 / 830 Output Total 1800 / 1800 350 / 2150 Balance -1110 / -1110 610 / -500 830 / 830 Weight last 48 hrs Weight 55.111 kg Weight 90.718 kg Weight 46.266 kg Physical Exam Const: COMMON NORMALS: patient oriented x3 and alert GENERAL APPEARANCE: cooperative ORIENTATION/CONSCIOUSNESS: Yes awake HENMT: COMMON NORMALS: oropharynx normal Neck/C-Spine: COMMON NORMALS: no JVD Resp: COMMON NORMALS: normal respiratory effort and clear to auscultation bilaterally AUSCULTATION: clear to auscultation bilaterally Cardio: COMMON NORMALS: no JVD, regular rhythm, S1 normal heart sound present, S2 normal heart sound present and No murmurs present (Cardio) RHYTHM: regular rhythm HEART SOUNDS: S1 normal heart sound present and S2 normal heart sound present GI: COMMON NORMALS: Normal to inspection, nondistended, normoactive bowel sounds present, Soft to palpation and non-tender PALPATION: Yes Soft to palpation Extremity: COMMON NORMALS: no joint enlargement GENERAL: Yes edema (trace at ankles. Tender edema of thighs and hips. Elbows.) OTHER: L hand appearing pink, black fingertips up to distal MTP on several fingers, she reports without worsening. Elongated bruise on medial R forearm. Neuro: COMMON NORMALS: patient oriented x3 and moves all extremities SENSORIUM/ORIENTATION: Yes alert Urinary Catheter Management: Coffman: Cath Placed During This Visit: yes Reason for Continuing Indwelling Catheter: Other Urinary Catheter Date of Insertion: 12/16/22 Urinary Catheter Time of Insertion: 14:02 Data 12/26/22 18:10 12/26/22 05:03 Micro: Microbiology 12/25/22 03:55 Blood Culture - Preliminary Blood NEGATIVE TO DATE 12/25/22 03:55 Blood Culture - Preliminary Blood NEGATIVE TO DATE A&P Assessment and plan (1) Fluid overload: Discussed with her again risk of repeat Lasix, risk of intravascular depletion, blood clot, she would like to go ahead with additional dose of Lasix today. Ordered. Reassess electrolytes, renal function. Reassess volume status. Will reassess daily. Reviewed sodium, potassium, BUN, creatinine. Reassess volume status, monitor renal function with recent INDRA, at risk of renal dysfunction with diuresis. At risk of further electrolyte abnormalities with persistent potassium and magnesium deficiency. Continue replacement. Monitor on telemetry. (2) MRSA (methicillin resistant Staphylococcus aureus) septicemia: Discussed with her, discussed with heme-onc - platelet level has been improving. She is still been having some hemoptysis/clot with sputum, but this has been progressively decreasing, per discussion with RN clots also with some older appearance. as per discussion with heme-onc consideration of adding prophylactic heparin, discussed with her risks. We will need to monitor also for any decrease in platelets, although HIT has been considered less likely. Still need to monitor. Discussed with her risk of bleeding. Monitor for any worsening of hemoptysis. If tolerating prophylactic heparin, consider also placement of PICC line and removal of central line. Discussed central line is nearing time for removal, increasing risk of infection with continuation. Discussed with pharmacist regarding adjustment of vancomycin dosing. Her weight had to be reconfirmed due to spurious value, vancomycin regimen adjusted to 750 mg every 12. Ideally would get a trough before the third dose, probably will be able to obtain it prior to discharge. Reviewed blood culture from 12/25, remaining negative to date. Reviewed blood culture 12/18 noted 2/4 bottles MRSA. Port-A-Cath has been explanted. 6 weeks antibiotic therapy until 01/29 with vancomycin. Vanco trough 15-20. Discussed with pharmacist. Discussed with foster care case manager. (3) Ischemia of right upper extremity: Some pain in the right hand, right hand appears pinkish, some reperfusion injury suspected. No worsening swelling, no signs of worsening perfusion. Has had dopplerable ulnar and radial pulse. Continue neurovascular checks. Some local lidocaine for symptom control. As discussed with her starting trial of prophylactic SC heparin. Venous duplex was obtained, noted no DVT, noted incidentally right radial artery occlusion. At bedside dopplerable pulses this morning obtained at the ulnar as well as radial artery. Hand appears similar to yesterday, distal fingertips with blackened appearance, hand is warm, similar in appearance in terms of perfusion. She is able to open and close her hand. Minimal swelling. Monitor symptoms. Discussed with her concern of some reperfusion symptoms, injury, may be at risk of compartment syndrome in case worsening as well. Requested neurovascular checks. Continue to monitor. Gradually and very slowly improving perfusion in the right hand. Persistent blackened distal fingers. Able to slowly open and close the hand. Most likely in setting of DIC along with arterial line and ABG. Currently stable. Pulses dopplerable. Hand warm to touch with persistent cyanosis of fingertips and nails. Continue with physical therapy. (4) Thrombocytopenia: Reviewed platelet level, noted continue to improve up to 37,000. Reviewed hemoglobin, noted some worsening down to 7.4. Repeat requested, reviewed, noted around 7.8. Requested repeat CBC. Discussed blood counts, DIC profile with heme-onc. Trial of subcutaneous prophylactic heparin. Risk of bleeding. Monitor platelets, small risk of HIT, considered less likely, but needs monitoring with nonzero risk. improving hemoptysis, now more appearance of old clots. although it has been decreasing. Not yet started on prophylactic anticoagulation. Severe thrombocytopenia. Risk of bleeding. With hemoptysis. Platelet levels reviewed, noted gradual mild improvement. Nontoxic. Discussed with her. Suspected recovering from DIC. Monitor platelet count daily. Watch for anemia. Hold off on transfusion. (5) Pericardial effusion: Discussed with her regarding possibly of targeted with a oral treatment. Discussed with patient. She would like to try to set the goal of returning home. Discussed with foster care case manager. Lives at home with her . Reviewed CT surgery note. Chest tube had been removed today. Transfer to [facility], continue additional monitoring. Discussed with CT surgery. Continue weaning down prednisone. Discontinue after tomorrow. Patient with significant pericardial effusion, which could also cause hypotension. With concerns for tamponade on admission. Post pericardial window and drain in which 750 cc of bloody fluid was drained. During procedure had cardiopulmonary arrest requiring 1 round of CPR. Currently neurologically intact. (6) Sepsis: Septic shock resolved. Continues on vancomycin and empiric Cipro Tapering off prednisone. Keep mean artery pressure 65. Blood cultures growing MRSA, urine culture growing E. coli and Proteus vulgaris. Source of infection most likely port which was removed on 12/18. Culture also growing coag positive staph. Blood cultures from 12/18 so far negative. Appreciate ID recommendations. Continue with current antibiotics of IV vancomycin and ciprofloxacin as per culture sensitivities. Monitor trough levels. Antibiotics to be dosed as per renal functions. Patient will most likely need PICC line placement once patient is less thrombotic and platelet counts improved. Currently central line is placed. Will need to be replaced around day 7-10. (7) INDRA (acute kidney injury): Renal function reviewed. Vancomycin trough reviewed. Discussed with pharmacist. Resolved. Reviewed BUN, creatinine, electrolytes. Coffman catheter in place. Follow-up chemistry. (8) Acute respiratory failure: Feeling congested, nasal and chest congestion. Bring up phlegm, some hemoptysis still noted, but she states they have been improving. Some difficulty bringing up phlegm. Discussed with her starting Mucinex, add flutter valve. Continue oxygen support. Wean down as tolerating. Continue I-S. Currently in neutral balance. Monitor for fluid overload, consider diuretic. Patient with acute respiratory failure during cardiac arrest. She is intubated and sedated. Able to be extubated successfully on 12/19. (9) Hemoptysis: Slowly improving. Suspect possibly secondary to bronchitis. Scheduled Mucinex. Flutter valve. Continue to monitor platelets. Start on Tessalon Perles scheduled and Robitussin as needed. (10) Transaminitis: Reviewed liver parameters. Overall improving, mild worsening this morning. Follow-up liver parameters. Likely secondary to sepsis, elevation secondary to cardiac arrest. LFTs improving (11) Cardiac arrest: Status postcardiac arrest with induction. She required 2 minutes, 1 cycle, of CPR. She appears to be following direction and is likely neurologically intact. Continue to follow closely. (12) Pericardial effusion with cardiac tamponade: Status post pericardial window. (13) Malignant pericardial effusion in disease classified elsewhere: (14) Hypoalbuminemia: (15) Metastatic urothelial carcinoma: Patient appears to be on palliative chemotherapy. Last treatment around November 12 (16) Hyponatremia: Resolving. Continue to monitor daily. (17) Hyperkalemia: Resolved (18) UTI (urinary tract infection): Repeat urine culture reviewed. Noted no growth. Most recent blood culture reviewed, Staphylococcus species in 2 bottles, but no growth after 5 days. Appreciate urine cultures. Antibiotics changed as above. (19) Hypotension: Patient initially hypotensive secondary to sepsis versus tamponade. This has resolved Plan Hypomagnesemia: Persistent hypomagnesemia, 1.6. Requested replacement programs. Recheck magnesium level requested. Hypokalemia: Again reviewed potassium noted WNL. Follow-up chemistry requested. Anemia: As above. Reassess CBC. If further decrease, may need transfusion. Most likely in setting of severe sepsis, DIC. Post 2 unit of blood transfusion during hospitalization. Appreciated iron panel, not noted iron deficient, folic acid is noted low. B12 without deficiency. Keep hemoglobin over 8. Lines: Right-sided IJ, Coffman catheter Analgesia: Pain relief is short lasting, discussed with her increasing frequency to every 4 hours on oxycodone. Glycemic control: Not needed. Nutrition: GI soft diet. Ensure protein shakes with each meal CODE STATUS: will be the DPOA. She wants to remain full code. PUD prophylaxis: Protonix twice daily DVT prophylaxis: Holding off on DVT prophylaxis given significant thrombocytopenia. SCDs. Discharge planning: options were discussed with patient and family per discussion with discharge planning. They declined And unable to consider SNF. Home health to be requested For discharge. Diet: Reviewed albumin, noted low. Add Ensure to regular diet. This documentation was created by [employer] power saw operator software. Every effort was made to ensure accuracy of power saw operator. Any obvious errors or omissions should be clarified with the author of the document. Attestations Medical Necessity Statement*: Continue admission for assessment management of risk of DVT, trial of initiation of prophylactic heparin, PICC line consideration, fluid overload, diuresis, electrolyte replacement with persistent deficiency, IV antibiotic treatment, pending arrangements for postdischarge treatment to complete 6 weeks of antibiotics following MRSA bacteremia, and reassessment of? severe thrombocytopenia, additional medical problems as above. Diagnoses Fluid overload E87.70 MRSA (methicillin resistant Staphylococcus aureus) septicemia A41.02 Ischemia of right upper extremity I99.8 Thrombocytopenia D69.6 Pericardial effusion I31.39 Sepsis A41.9 INDRA (acute kidney injury) N17.9 Acute respiratory failure J96.00 Hemoptysis R04.2 Transaminitis R74.01 Cardiac arrest I46.9 Pericardial effusion with cardiac tamponade I31.39; I31.4 Malignant pericardial effusion in disease classified elsewhere I31.31 Hypoalbuminemia E88.09 Metastatic urothelial carcinoma C79.10 Hyponatremia E87.1 Hyperkalemia E87.5 UTI (urinary tract infection) N39.0 Hypotension I95.9
[2022-12-26] MEDS: vancomycin 750 MG in sodium chloride 0.9% 250 ML 250 MG IV (17:13)
[2022-12-27] VITALS (22 sets, daily range): BP systolic 112–136; BP diastolic 52–89; PULSE 80–102; RESP 12–25; TEMP 36.5–37.3; O2SAT 10–95
[2022-12-27] MEDS: heparin 5,000 unit/mL INJ 1 mL 5000 UNIT SUBCUT ×2 (02:05→15:12)
[2022-12-27] MEDS: oxyCODONE 5 mg IR Tab/Cap PO ×5 (02:05→21:00)
[2022-12-27] MEDS: ciprofloxacin 400 MG/200 ML PREMIX 200 MG IV ×2 (02:06→15:51)
[2022-12-27 04:57] LABS: Basophils % 0.1 %; Eosinophils % 0.3 %; Hematocrit 23.5 % (36-47); Lymphocytes # 0.5 10^3/uL (0.8-4.8); Lymphocytes % 5.3 %; Mean Corpuscular HGB Conc 30.6 g/dL (30-55); Mean Corpuscular Hemoglobin 32.7 pg (27-33); Mean Corpuscular Volume 106.8 fl (85-98); Monocytes # 0.7 10^3/uL (0.2-0.9); Neutrophils # 7.77 10^3/uL (1.8-7.7); Neutrophils % 85.7 %; Nucleated Red Blood Cells % 0 %; Platelet Count 45 10^3/cmm (157-399); Red Cell Distribution Width 23.2 % (12.1-15.1); White Blood Count 9.07 10^3/uL (3.29-11.43)
[2022-12-27] MEDS: vancomycin 750 MG in sodium chloride 0.9% 250 ML 250 MG IV (05:08)
[2022-12-27 05:18] LABS: Alanine Aminotransferase 40 U/L (0-33); Albumin Level 1.8 g/dL (3.5-5.2); Alkaline Phosphatase 156 U/L (35-105); Anion Gap 10.3 (5-19); Aspartate Amino Transferase 37 U/L (0-32); Blood Urea Nitrogen 18 mg/dL (8-23); Calcium 7.5 mg/dL (8.5-10.5); Carbon Dioxide 28 mmol/L (22-29); Chloride 101 mmol/L (98-107); Globulin 2.5 g/dL (1.3-4.6); Glomerular Filtration Rate 85.1 mL/min (90-130); Glucose 81 mg/dL (65-115); Osmolality Calculated 283 mOsm/kg (285-295); Potassium 3.3 mmol/L (3.5-5.1); Sodium 136 mmol/L (136-145); Total Bilirubin 0.7 mg/dL (0.15-1.2); Total Protein 4.3 g/dL (6.6-8.7)
[2022-12-27] MEDS: ondansetron 2 mg/ML SDV 2 mL 4 MG IVP ×2 (06:17→09:54)
[2022-12-27 09:30] LABS: Methicillin-Resist S.aureu PCR DETECTED (NOT DETECTED)
[2022-12-27] MEDS: LORazepam 0.5 mg Tablet PO ×2 (09:52→15:12)
[2022-12-27] MEDS: guaiFENesin 600 mg Tablet PO ×2 (09:53→18:06)
[2022-12-27] MEDS: oxyCODONE 10 mg ER (12 HR) Tablet PO ×2 (09:53→18:06)
[2022-12-27] MEDS: sennosides-docusate Tablet 1 TAB PO ×2 (09:53→18:06)
[2022-12-27] MEDS: nystatin 100,000 unit/mL UDC 5 mL 100000 UNIT PO ×3 (09:53→20:13)
[2022-12-27] MEDS: pantoprazole DR 40 mg Tablet PO ×2 (09:53→18:07)
[2022-12-27] MEDS: benzonatate 100 mg Capsule PO ×3 (09:53→20:12)
[2022-12-27] MEDS: docusate sodium 100 mg Capsule PO ×2 (09:53→18:06)
[2022-12-27] MEDS: fluticasone nasal spray 16gm Btl 2 SPRAY NASAL (09:54)
--- NOTE | 2022-12-27 10:06 | PC.NURSE ---
pt has been refusing to be turned to her sides. she said it will hurt her bottom worse. she wants pillows under her arms, asked her when she wants to get up and she said around noon.
--- NOTE | 2022-12-27 13:51 | P.PN_ITS ---
Subjective Subjective: Some intermittent pain in R hand. Lidocaine is helping. She has been avoiding working with her to much. No worsening in swelling, no worsening of color. Vitals/I&O/Wt Last Vital Signs Temp 98.4 F 12/27/22 12:30 Pulse 80 12/27/22 13:16 Resp 16 12/27/22 13:16 BP 121/78 12/27/22 12:30 Pulse Ox 92 12/27/22 13:16 O2 Del Method Nasal Cannula 12/27/22 13:16 O2 Flow Rate 1 12/27/22 13:16 FiO2 35 12/19/22 13:11 12/26/22 12/27/22 12/27/22 22:59 06:59 14:59 Intake Total 570 / 1400 540 / 1940 222 / 222 Output Total 1500 / 1500 600 / 2100 Balance -930 / -100 -60 / -160 222 / 222 Weight last 48 hrs Weight 51.573 kg Weight 55.111 kg Weight 90.718 kg Physical Exam Const: COMMON NORMALS: patient oriented x3 and alert GENERAL APPEARANCE: cooperative ORIENTATION/CONSCIOUSNESS: Yes awake HENMT: COMMON NORMALS: oropharynx normal Neck/C-Spine: COMMON NORMALS: no JVD Resp: COMMON NORMALS: normal respiratory effort and clear to auscultation bilaterally AUSCULTATION: clear to auscultation bilaterally Cardio: COMMON NORMALS: no JVD, regular rhythm, S1 normal heart sound present, S2 normal heart sound present and No murmurs present (Cardio) RHYTHM: regular rhythm HEART SOUNDS: S1 normal heart sound present and S2 normal heart sound present GI: COMMON NORMALS: Normal to inspection, nondistended, normoactive bowel sounds present, Soft to palpation and non-tender PALPATION: Yes Soft to palpation Extremity: COMMON NORMALS: no joint enlargement GENERAL: Yes edema (trace at ankles. Tender edema of thighs and hips. Elbows.) OTHER: L hand appearing pink, black fingertips up to distal MTP on several fingers, she reports without worsening. Mildly dusky appearance R index finger, but without darkening/blackening. Warm. Able to move it. Elongated bruise on medial R forearm. Neuro: COMMON NORMALS: patient oriented x3 and moves all extremities SENSOR IUM/ORIENTATION: Yes alert Urinary Catheter Management: Coffman: Cath Placed During This Visit: yes Reason for Continuing Indwelling Catheter: Accurate Measurement of Urinary Output in Critically Ill Patients Urinary Catheter Date of Insertion: 12/16/22 Urinary Catheter Time of Insertion: 14:02 Data 12/27/22 04:34 12/27/22 04:34 Micro: Microbiology 12/16/22 18:30 Gram Stain - Final Sputum - Endotracheal Tube Aspirate Sputum Culture - Preliminary A&P Assessment and plan (1) Anemia: Hemoglobin without improvement, today slightly lower at 7.2. Discussed with her 1 unit RBC transfusion. She would like to go ahead. Requested. 20 mg p.o. Lasix. At risk of fluid overload, trali. At risk of further ischemia with worsening anemia. Check Hemoccult. Follow-up CBC requested. Will need folic acid supplementation due to deficiency. (2) MRSA (methicillin resistant Staphylococcus aureus) septicemia: Discussed with her risks with placement of PICC line. She has tolerated subcutaneous heparin so far. No worsening hemoptysis. Platelets continue to improve. Requested PICC line. Remove central line. Discussed with case management. Discussed with PICC nurse. Continue vancomycin. Dose has been adjusted to 750 mg every 12 hours. We will draw additional blood culture. Reviewed blood culture from 12/25, remaining negative to date. Reviewed final blood culture 12/18 noted 2/4 bottles MRSA. Port-A-Cath has been explanted. 6 weeks antibiotic therapy until 01/29 with vancomycin. Vanco trough 15-20. Discussed with pharmacist. Discussed with bilingual patient support caseworker. (3) Fluid overload: She wants to repeat additional dose of Lasix. Discussed with her small dose by mouth given also that she will be receiving blood transfusion. Edema is slightly better. Avoid hypotension. Discussed with her again risk of repeat Lasix, risk of intravascular depletion, blood clot, she would like to go ahead with additional dose of Lasix today. Ordered. Reassess electrolytes, renal function. Reassess volume status. Will reassess daily. Reviewed sodium, potassium, BUN, creatinine. Reassess volume status, monitor renal function with recent INDRA, at risk of renal dysfunction with diuresis. At risk of further electrolyte abnormalities with persistent potassium and magnesium deficiency. Continue replacement. Monitor on telemetry. (4) Ischemia of right upper extremity: Some pain in the right hand, right hand appears pinkish, some reperfusion injury suspected. No worsening swelling, no signs of worsening perfusion. Has had dopplerable ulnar and radial pulse. Continue neurovascular checks. Some local lidocaine for symptom control. As discussed with her starting trial of prophylactic SC heparin. Venous duplex was obtained, noted no DVT, noted incidentally right radial artery occlusion. At bedside dopplerable pulses this morning obtained at the ulnar as well as radial artery. Hand appears similar to yesterday, distal fingertips with blackened appearance, hand is warm, similar in appearance in terms of perfusion. She is able to open and close her hand. Minimal swelling. Monitor symptoms. Discussed with her concern of some repe rfusion symptoms, injury, may be at risk of compartment syndrome in case worsening as well. Requested neurovascular checks. Continue to monitor. Gradually and very slowly improving perfusion in the right hand. Persistent blackened distal fingers. Able to slowly open and close the hand. Most likely in setting of DIC along with arterial line and ABG. Currently stable. Pulses dopplerable. Hand warm to touch with persistent cyanosis of fingertips and nails. Continue with physical therapy. (5) Thrombocytopenia: Reviewed blood counts, noted some worsening anemia. Platelets, however, have been improving. Up to 45,000. Discussed with her. WBC normal. Repeat CBC requested. Monitor platelets with initiation of heparin prophylaxis. So far platelets are recovering well. Not likely HIT. Improving hemoptysis, now more appearance of old clots. although it has been decreasing. Not yet started on prophylactic anticoagulation. Severe thrombocytopenia. Risk of bleeding. With hemoptysis. Platelet levels reviewed, noted gradual mild improvement. Nontoxic. Discussed with her. Suspected recovering from DIC. Monitor platelet count daily. Watch for anemia. Hold off on transfusion. (6) Pericardial effusion: Discussed with her regarding possibly of targeted with a oral treatment. Discussed with patient. She would like to try to set the goal of returning home. Discussed with bilingual patient support caseworker. Lives at home with her . Reviewed CT surgery note. Chest tube had been removed today. Transfer to [facility], continue additional monitoring. Discussed with CT surgery. Continue weaning down prednisone. Discontinue after tomorrow. Patient with significant pericardial effusion, which could also cause hypotension. With concerns for tamponade on admission. Post pericardial window and drain in which 750 cc of bloody fluid was drained. During procedure had cardiopulmonary arrest requiring 1 round of CPR. Currently neurologically intact. (7) Sepsis: Septic shock resolved. Continues on vancomycin and empiric Cipro DC'd prednisone. Keep mean artery pressure 65. Blood cultures growing MRSA, urine culture growing E. coli and Proteus vulgaris. Source of infection most likely port which was removed on 12/18. Culture also growing coag positive staph. Blood cultures from 12/18 so far negative. Appreciate ID recommendations. Continue with current antibiotics of IV vancomycin and ciprofloxacin as per culture sensitivities. Monitor trough levels. Antibiotics to be dosed as per renal functions. (8) INDRA (acute kidney injury): Renal function reviewed. Vancomycin trough reviewed. Discussed with pharmacist. Resolved. Reviewed BUN, creatinine, electrolytes. Coffman catheter in place. Follow-up chemistry. (9) Acute respiratory failure: Feeling congested, nasal and chest congestion. Bring up phlegm, some hemoptysis still noted, but she states they have been improving. Some difficulty bringing up phlegm. Discussed with her starting Mucinex, add flutter valve. Continue oxygen support. Wean down as tolerating. Continue I-S. Currently in neutral balance. Monitor for fluid overload, consider diuretic. Patient with acute respiratory failure during cardiac arrest. She is intubated and sedated. Able to be extubated successfully on 12/19. (10) Hemoptysis: Slowly improving. Suspect possibly secondary to bronchitis. Scheduled Mucinex. Flutter valve. Continue to monitor platelets. Start on Tessalon Perles scheduled and Robitussin as needed. (11) Transaminitis: Reviewed liver parameters. Overall improving, mild worsening this morning. Follow-up liver parameters. Likely secondary to sepsis, elevation secondary to cardiac arrest. LFTs improving (12) Cardiac arrest: Status postcardiac arrest with induction. She required 2 minutes, 1 cycle, of CPR. She appears to be following direction and is likely neurologically intact. Continue to follow closely. (13) Pericardial effusion with cardiac tamponade: Status post pericardial window. (14) Malignant pericardial effusion in disease classified elsewhere: (15) Hypoalbuminemia: (16) Metastatic urothelial carcinoma: Patient appears to be on palliative chemotherapy. Last treatment around November 12 (17) Hyponatremia: Resolving. Continue to monitor daily. (18) Hyperkalemia: Resolved (19) UTI (urinary tract infection): Repeat urine culture reviewed. Noted no growth. Most recent blood culture reviewed, Staphylococcus species in 2 bottles, but no growth after 5 days. Appreciate urine cultures. Antibiotics changed as above. (20) Hypotension: Patient initially hypotensive secondary to sepsis versus tamponade. This has resolved Plan Hypomagnesemia: Reviewed magnesium. Hypomagnesemia replaced so far. Recheck magnesium level. Hypokalemia: Reviewed potassium, mild hypokalemia. Replace potassium. Recheck chemistry. Lines: Right-sided IJ, Coffman catheter Analgesia: Pain relief is short lasting, discussed with her increasing frequency to every 4 hours on oxycodone. Glycemic control: Not needed. Nutrition: GI soft diet. Ensure protein shakes with each meal CODE STATUS: will be the DPOA. She wants to remain full code. PUD prophylaxis: Protonix twice daily DVT prophylaxis: Heparin, SCDs. Discharge planning: options were discussed with patient and family per discussion with discharge planning. They declined And unable to consider SNF. Home health to be requested For discharge. Diet: Reviewed albumin, noted low. Added Ensure to regular diet. This documentation was created by [employer] erosion control coordinator software. Every effort was made to ensure accuracy of erosion control coordinator. Any obvious errors or omissions should be clarified with the author of the document. Attestations Medical Necessity Statement*: Continue admission for assessment management of risk of DVT, trial of initiation of prophylactic heparin, PICC line placement, fluid overload, diuresis, electro lyte replacement with persistent deficiency, IV antibiotic treatment, pending arrangements for postdischarge treatment to complete 6 weeks of antibiotics following MRSA bacteremia, and reassessment of? severe thrombocytopenia, additional medical problems as above. Diagnoses Anemia D64.9 MRSA (methicillin resistant Staphylococcus aureus) septicemia A41.02 Fluid overload E87.70 Ischemia of right upper extremity I99.8 Thrombocytopenia D69.6 Pericardial effusion I31.39 Sepsis A41.9 INDRA (acute kidney injury) N17.9 Acute respiratory failure J96.00 Hemoptysis R04.2 Transaminitis R74.01 Cardiac arrest I46.9 Pericardial effusion with cardiac tamponade I31.39; I31.4 Malignant pericardial effusion in disease classified elsewhere I31.31 Hypoalbuminemia E88.09 Metastatic urothelial carcinoma C79.10 Hyponatremia E87.1 Hyperkalemia E87.5 UTI (urinary tract infection) N39.0 Hypotension I95.9
--- NOTE | 2022-12-27 15:30 | PC.NURSE ---
Unable to pass PICC catheter past axilla. Line converted to midline. Pt referred for PICC placement for home IV antibiotics. Risks and benefits discussed and informed consent obtained from patient. Right arm not eligible for placement. Left arm assessed. Left basilic vein measured 2.8 mm, too small for 5 Romanian cath. Left brachial vein assessed and noted at 3.2 mm. Using sterile technique and MST, left brachial vein accessed x 1 stick. Good blood return noted. Unable to pass catheter past axilla, even with multiple repositioning techniques. PICC converted to midline. Trimmed cath length 8 cm with 0 cm external length noted. Line secured with stat-lock. Insertion site covered with Biopatch and TSM. Provider notified of midline placement due to inability of catheter to pass axilla. Report given to bedside nurseJason.
--- NOTE | 2022-12-27 16:03 | PC.NURSE ---
notified case mgt and hospitalist that picc line insertion is unsuccessful per Jannie MAYO, she put a midline access.
[2022-12-27 17:44] LABS: Vancomycin Trough 22.3 ug/mL (10-15)
[2022-12-27] MEDS: vancomycin 500 MG in sodium chloride 0.9% (plus) 100 ML 200 MG IV (21:45)
[2022-12-28] VITALS (18 sets, daily range): BP systolic 104–142; BP diastolic 65–69; PULSE 85–94; RESP 12–21; TEMP 36.4–37.2; O2SAT 92–97; BMI 21.2
[2022-12-28] MEDS: oxyCODONE 5 mg IR Tab/Cap PO ×6 (01:05→21:55)
[2022-12-28] MEDS: ciprofloxacin 400 MG/200 ML PREMIX 200 MG IV ×2 (02:58→16:55)
[2022-12-28] MEDS: heparin 5,000 unit/mL INJ 1 mL 5000 UNIT SUBCUT ×2 (02:58→13:54)
[2022-12-28 03:33] LABS: Basophils % 0.2 %; Eosinophils % 0.3 %; Hematocrit 25.6 % (36-47); Lymphocytes # 0.5 10^3/uL (0.8-4.8); Lymphocytes % 5.7 %; Mean Corpuscular HGB Conc 31.6 g/dL (30-55); Mean Corpuscular Hemoglobin 32.8 pg (27-33); Mean Corpuscular Volume 103.6 fl (85-98); Mean Platelet Volume 11.7 fL (7.4-10.4); Monocytes # 0.6 10^3/uL (0.2-0.9); Monocytes % 6.6 %; Neutrophils # 7.58 10^3/uL (1.8-7.7); Neutrophils % 86.7 %; Nucleated Red Blood Cells % 0 %; Platelet Count 45 10^3/cmm (157-399); Red Blood Count 2.47 10^6/uL (3.85-5.65); Red Cell Distribution Width 21.2 % (12.1-15.1); White Blood Count 8.75 10^3/uL (3.29-11.43)
[2022-12-28 03:48] LABS: Alanine Aminotransferase 32 U/L (0-33); Albumin Level 1.9 g/dL (3.5-5.2); Alkaline Phosphatase 170 U/L (35-105); Anion Gap 8.1 (5-19); Aspartate Amino Transferase 26 U/L (0-32); Blood Urea Nitrogen 16 mg/dL (8-23); Calcium 7.3 mg/dL (8.5-10.5); Carbon Dioxide 28 mmol/L (22-29); Chloride 98 mmol/L (98-107); Globulin 2.3 g/dL (1.3-4.6); Glomerular Filtration Rate 85.1 mL/min (90-130); Glucose 164 mg/dL (65-115); Osmolality Calculated 277 mOsm/kg (285-295); Potassium 3.1 mmol/L (3.5-5.1); Sodium 131 mmol/L (136-145); Total Protein 4.2 g/dL (6.6-8.7)
[2022-12-28 04:01] LABS: Magnesium 1.7 mg/dL (1.7-2.3)
[2022-12-28] MEDS: budesonide 0.5 mg/2 mL Neb INHALATION (08:17)
[2022-12-28] MEDS: albuterol 2.5 mg/3 mL Neb INHALATION ×2 (08:17→13:12)
[2022-12-28] MEDS: nystatin 100,000 unit/mL UDC 5 mL 100000 UNIT PO ×3 (08:35→16:54)
[2022-12-28] MEDS: pantoprazole DR 40 mg Tablet PO ×2 (08:35→16:55)
[2022-12-28] MEDS: sennosides-docusate Tablet 1 TAB PO ×2 (08:35→16:55)
[2022-12-28] MEDS: oxyCODONE 10 mg ER (12 HR) Tablet PO ×2 (08:35→18:39)
[2022-12-28] MEDS: LORazepam 0.5 mg Tablet PO ×2 (08:35→18:40)
[2022-12-28] MEDS: docusate sodium 100 mg Capsule PO ×2 (08:35→16:54)
[2022-12-28] MEDS: benzonatate 100 mg Capsule PO ×3 (08:36→21:46)
[2022-12-28] MEDS: guaiFENesin 600 mg Tablet PO ×2 (08:36→16:54)
[2022-12-28] MEDS: fluticasone nasal spray 16gm Btl 2 SPRAY NASAL (08:36)
[2022-12-28] MEDS: ondansetron 2 mg/ML SDV 2 mL 4 MG IVP (08:53)
[2022-12-28] MEDS: vancomycin 500 MG in sodium chloride 0.9% (plus) 100 ML 200 MG IV (08:54)
[2022-12-28 10:09] LABS: Creatine Phosphokinase 114 U/L (26-192)
[2022-12-28] MEDS: potassium chloride ER 20 mEq Tablet 40 MEQ PO (10:09)
[2022-12-28] MEDS: magnesium sulfate premix 2 GM/50 ML PIGGYBACK IV (10:15)
[2022-12-28] MEDS: alteplase 1 mg/mL SDV 2 mL 2 MG INTRACATH (10:46)
[2022-12-28] MEDS: water for injection-sterile 10 ML 2.2 ML (10:59)
[2022-12-28] MEDS: terbinafine 1% Cream 15 gm 1 APPLIC TOPICAL (12:00)
[2022-12-28] MEDS: metoclopramide 5 mg/mL SDV 2 mL IVP ×2 (12:01→22:05)
--- NOTE | 2022-12-28 17:08 | PM.PN ---
Subjective Subjective: Pain episodes improving in her right hand. Later in the day some nausea. Rounded spots surrounded by a ring of erythema, scaling, pruritic on the forehead and abdomen concerning for ringworm. Midline catheter stopped functioning. Vitals/I&O/Wt Last Vital Signs Temp 98.9 F 12/28/22 12:00 Pulse 94 12/28/22 16:00 Resp 18 12/28/22 16:55 BP 104/65 12/28/22 12:00 Pulse Ox 95 12/28/22 16:55 O2 Del Method Nasal Cannula 12/28/22 13:14 O2 Flow Rate 1 12/28/22 13:14 FiO2 35 12/19/22 13:11 12/28/22 12/28/22 12/28/22 06:59 14:59 22:59 Intake Total 440 / 1789 740 / 740 10 / 750 Output Total 375 / 775 150 / 150 Balance 65 / 1014 590 / 590 10 / 600 Weight last 48 hrs Weight 51.001 kg Weight 51.573 kg Physical Exam Const: COMMON NORMALS: patient oriented x3 and alert GENERAL APPEARANCE: cooperative ORIENTATION/CONSCIOUSNESS: Yes awake HENMT: COMMON NORMALS: oropharynx normal Neck/C-Spine: COMMON NORMALS: no JVD Resp: COMMON NORMALS: normal respiratory effort and clear to auscultation bilaterally AUSCULTATION: clear to auscultation bilaterally Cardio: COMMON NORMALS: no JVD, regular rhythm, S1 normal heart sound present, S2 normal heart sound present and No murmurs present (Cardio) RHYTHM: regular rhythm HEART SOUNDS: S1 normal heart sound present and S2 normal heart sound present GI: COMMON NORMALS: Normal to inspection, nondistended, normoactive bowel sounds present, Soft to palpation and non-tender PALPATION: Yes Soft to palpation Extremity: COMMON NORMALS: no joint enlargement GENERAL: Yes edema (trace at ankles. Tender edema of thighs and hips. Elbows.) OTHER: L hand appearing pink, black fingertips up to distal MTP on several fingers, she reports without worsening. Mildly dusky appearance R index finger, but without darkening/blackening. Warm. Able to move it. Elongated bruise on medial R forearm. Neuro: COMMON NORMALS: patient oriented x3 and moves all extremities SENSORIUM/ORIENTATION: Yes alert Urinary Catheter Management: Coffman: Cath Placed During This Visit: yes Reason for Continuing Indwelling Catheter: Accurate Measurement of Urinary Output in Critically Ill Patients Urinary Catheter Date of Insertion: 12/16/22 Urinary Catheter Time of Insertion: 14:02 Data 12/28/22 03:15 12/28/22 03:15 Micro: Microbiology 12/27/22 15:55 Blood Culture - Preliminary Blood NEGATIVE TO DATE 12/27/22 15:00 Blood Culture - Preliminary Blood NEGATIVE TO DATE 12/16/22 18:30 Gram Stain - Final Sputum - Endotracheal Tube Aspirate Sputum Culture - Preliminary A&P Assessment and plan (1) Anemia: responded well to RBC transfusion On review of CBC. Follow-up CBC requested. Reviewed platelets, noted 45,000. Follow-up Hemoccult. Will need folic acid supplementation due to deficiency. (2) MRSA (methicillin resistant Staphylococcus aureus) septicemia: Midline catheter was placed history, however, reported catheter not recommended for use with vancomycin. Discussed with ID. Switched from vancomycin to daptomycin. Risk of rhabdomyolysis. Check baseline CK. Midline catheter stopped functioning today. To be removed. Small IV obtained left hand, but not likely to last very long. Without stable available access, discussed with her unfortunately risk of infection with right-sided CVC, but for now we will need to maintain. Canceled discontinuation of central line for now. Discussed with surgery further options for access, recommend Port-A-Cath placement on Friday. Discussed with case management. Discussed with PICC nurse. Follow-upadditional blood culture. reviewed, noted pending. Reviewed blood culture from 12/25, remaining negative to date. Reviewed final blood culture 12/18 noted 2/4 bottles MRSA. Port-A-Cath has been explanted. 6 weeks antibiotic therapy until 01/29 Initial plan with vancomycin, switched to daptomycin. (3) Fluid overload: Received additional Lasix yesterday. We will hold off for today. Reassess volume status. Avoid hypotension. Discussed with her again risk of repeat Lasix, risk of intravascular depletion, blood clot, she would like to go ahead with additional dose of Lasix today. Reassess electrolytes, renal function. Reassess volume status. Will reassess daily. Reviewed chemistry, noted low potassium. Requested replacement. Repeat chemistry requested. Reviewed magnesium, Replace additional magnesium. repeat magnesium requested. Reassess volume status, monitor renal function with recent INDRA, at risk of renal dysfunction with diuresis. At risk of further electrolyte abnormalities with persistent potassium and magnesium deficiency. Continue replacement. Monitor on telemetry. (4) Ischemia of right upper extremity: Improving. Pain subsiding. Reperfusion injury appears to be improving. Continue to follow. Some pain in the right hand, right hand appears pinkish, some reperfusion injury suspected. No worsening swelling, no signs of worsening perfusion. Has had dopplerable ulnar and radial pulse. Continue neurovascular checks. Some local lidocaine for symptom control. As discussed with her starting trial of prophylactic SC heparin. Venous duplex was obtained, noted no DVT, noted incidentally right radial artery occlusion. At bedside dopplerable pulses this morning obtained at the ulnar as well as radial artery. Hand appears similar to yesterday, distal fingertips with blackened appearance, hand is warm, similar in appearance in terms of perfusion. She is able to open and close her hand. Minimal swelling. Monitor symptoms. Discussed with her concern of some reperfusion symptoms, injury, may be at risk of compartment syndrome in case worsening as well. Requested neurovascular checks. Continue to monitor. Gradually and very slowly improving perfusion in the right hand. Persistent blackened distal fingers. Able to slowly open and close the hand. Most likely in setting of DIC along with arterial line and ABG. Currently stable. Pulses dopplerable. Hand warm to touch with persistent cyanosis of fingertips and nails. Continue with physical therapy. (5) Thrombocytopenia: Reviewed platelet level. Reviewed hemoglobin level. Platelets have been overall gradually improving. Follow-up CBC requested. Monitor platelets with initiation of heparin prophylaxis. So far platelets are recovering well. Not likely HIT. Improving hemoptysis, now more appearance of old clots. although it has been decreasing. Not yet started on prophylactic anticoagulation. Severe thrombocytopenia. Risk of bleeding. With hemoptysis. Platelet levels reviewed, noted gradual mild improvement. Nontoxic. Discussed with her. Suspected recovering from DIC. Monitor platelet count daily. Watch for anemia. Hold off on transfusion. (6) Pericardial effusion: Discussed with her regarding possibly of targeted with a oral treatment. Discussed with patient. She would like to try to set the goal of returning home. Discussed with senior clinical data manager. Lives at home with her . Reviewed CT surgery note. Chest tube had been removed today. Transfer to [facility], continue additional monitoring. Discussed with CT surgery. Continue weaning down prednisone. Discontinue after tomorrow. Patient with significant pericardial effusion, which could also cause hypotension. With concerns for tamponade on admission. Post pericardial window and drain in which 750 cc of bloody fluid was drained. During procedure had cardiopulmonary arrest requiring 1 round of CPR. Currently neurologically intact. (7) Sepsis: Repeat chest x-ray close at follow-up infiltrate. Septic shock resolved. Continues on vancomycin and empiric Cipro DC'd prednisone. Keep mean artery pressure 65. Blood cultures growing MRSA, urine culture growing E. coli and Proteus vulgaris. Source of infection most likely port which was removed on 12/18. Culture also growing coag positive staph. Blood cultures from 12/18 so far negative. Appreciate ID recommendations. Continue with current antibiotics of IV vancomycin and ciprofloxacin as per culture sensitivities. Monitor trough levels. Antibiotics to be dosed as per renal functions. (8) INDRA (acute kidney injury): Renal function reviewed. Vancomycin trough reviewed. Discussed with pharmacist. Resolved. Reviewed BUN, creatinine, electrolytes. Coffman catheter in place. Follow-up chemistry. (9) Acute respiratory failure: Feeling congested, nasal and chest congestion. Bring up phlegm, some hemoptysis still noted, but she states they have been improving. Some difficulty bringing up phlegm. Discussed with her starting Mucinex, add flutter valve. Continue oxygen support. Wean down as tolerating. Continue I-S. Currently in neutral balance. Monitor for fluid overload, consider diuretic. Patient with acute respiratory failure during cardiac arrest. She is intubated and sedated. Able to be extubated successfully on 12/19. (10) Hemoptysis: Repeat chest x-ray requested, follow-up infiltrate. Slowly improving. Suspect possibly secondary to bronchitis. Scheduled Mucinex. Flutter valve. Continue to monitor platelets. Start on Tessalon Perles scheduled and Robitussin as needed. (11) Transaminitis: Reviewed liver parameters - transaminitis resolved. Likely secondary to sepsis, elevation secondary to cardiac arrest. LFTs improving (12) Cardiac arrest: Status postcardiac arrest with induction. She required 2 minutes, 1 cycle, of CPR. She appears to be following direction and is likely neurologically intact. Continue to follow closely. (13) Pericardial effusion with cardiac tamponade: Status post pericardial window. (14) Malignant pericardial effusion in disease classified elsewhere: (15) Hypoalbuminemia: (16) Metastatic urothelial carcinoma: Patient appears to be on palliative chemotherapy. Last treatment around [place] 29 (17) Hyponatremia: Resolving. Continue to monitor daily. (18) Hyperkalemia: Resolved (19) UTI (urinary tract infection): Repeat urine culture reviewed. Noted no growth. Most recent blood culture reviewed, Staphylococcus species in 2 bottles, but no growth after 5 days. Appreciate urine cultures. Antibiotics changed as above. (20) Hypotension: Patient initially hypotensive secondary to sepsis versus tamponade. This has resolved Plan Rash: 2 circumscribed lesions on the left side of the forehead, with erythematous slightly raised borders, mild scaling, she reports it is pruritic. possible tinea capitis and corporis noted on forehead and abdomen. Additionally has oropharyngeal candidiasis. Immunocompromised with malignancy. We will start topical terbinafine but also give itraconazole. Hypomagnesemia: Reviewed magnesium, noted to 1.7. Additional magnesium replacement requested. Follow-up magnesium level requested. Hypokalemia: Mild hypokalemia noted on review of potassium today. Repeat potassium dose. Repeat potassium level requested. Lines: Right-sided IJ, Coffman catheter Analgesia: Pain relief is short lasting, discussed with her increasing frequency to every 4 hours on oxycodone. Glycemic control: Not needed. Nutrition: GI soft diet. Ensure protein shakes with each meal CODE STATUS: will be the DPOA. She wants to remain full code. PUD prophylaxis: Protonix twice daily DVT prophylaxis: Heparin, SCDs. Discharge planning: options were discussed with patient and family per discussion with discharge planning. They declined And unable to consider SNF. Home health to be requested For discharge. Diet: Reviewed albumin, noted low. Added Ensure to regular diet. This documentation was created by [employer] power barker operator software. Every effort was made to ensure accuracy of power barker operator. Any obvious errors or omissions should be clarified with the author of the document. Attestations Medical Necessity Statement*: Continue admission for assessment management of risk of DVT, trial of initiation of prophylactic heparin, PICC line placement, fluid overload, diuresis, electrolyte replacement with persistent deficiency, IV antibiotic treatment, pending arrangements for postdischarge treatment to complete 6 weeks of antibiotics following MRSA bacteremia, and reassessment of? severe thrombocytopenia, additional medical problems as above. Diagnoses Anemia D64.9 MRSA (methicillin resistant Staphylococcus aureus) septicemia A41.02 Fluid overload E87.70 Ischemia of right upper extremity I99.8 Thrombocytopenia D69.6 Pericardial effusion I31.39 Sepsis A41.9 INDRA (acute kidney injury) N17.9 Acute respiratory failure J96.00 Hemoptysis R04.2 Transaminitis R74.01 Cardiac arrest I46.9 Pericardial effusion with cardiac tamponade I31.39; I31.4 Malignant pericardial effusion in disease classified elsewhere I31.31 Hypoalbuminemia E88.09 Metastatic urothelial carcinoma C79.10 Hyponatremia E87.1 Hyperkalemia E87.5 UTI (urinary tract infection) N39.0 Hypotension I95.9
--- NOTE | 2022-12-28 17:15 | XRR_ITS ---
PROCEDURE INFORMATION: Exam: XR Chest Exam date and time: 12/28/2022 6:50 PM Age: 62 years old Clinical indication: Patient HX: Follow up infiltrates TECHNIQUE: Imaging protocol: Radiologic exam of the chest. Views: 1 view. COMPARISON: CR XR chest 1V portable [id number] 12/19/2022 7:01 AM FINDINGS: Tubes, catheters and devices: Right IJ approach central venous catheter redemonstrated. The ETT and NG tube have been removed. Lungs: Unremarkable. No consolidation. Pleural spaces: Irregular opacities in the lung bases with small bilateral pleural effusions, increased on the right. Heart/Mediastinum: Unremarkable. No cardiomegaly. Bones/joints: Unremarkable. XR/XR chest 1V portable [id number] IMPRESSION: 1. The ETT and NG tube have been removed. 2. Irregular opacities in the lung bases with small bilateral pleural effusions, increased on the right.
[2022-12-29] VITALS (34 sets, daily range): BP systolic 92–126; BP diastolic 60–74; PULSE 90–107; RESP 13–25; TEMP 37.1–37.4; O2SAT 20–100
[2022-12-29] MEDS: oxyCODONE 5 mg IR Tab/Cap PO ×6 (01:39→23:33)
[2022-12-29] MEDS: heparin 5,000 unit/mL INJ 1 mL 5000 UNIT SUBCUT ×2 (01:41→15:33)
[2022-12-29] MEDS: ciprofloxacin 400 MG/200 ML PREMIX 200 MG IV ×2 (03:04→15:59)
[2022-12-29] MEDS: LORazepam 0.5 mg Tablet PO ×2 (04:06→15:59)
[2022-12-29] MEDS: diphenhydrAMINE cream 30 gm 1 APPLIC TOPICAL (04:08)
[2022-12-29 05:23] LABS: Basophils % 0.2 %; Eosinophils % 0.6 %; Hematocrit 24.2 % (36-47); Lymphocytes # 0.6 10^3/uL (0.8-4.8); Lymphocytes % 8.9 %; Mean Corpuscular Hemoglobin 32.5 pg (27-33); Mean Corpuscular Volume 104.8 fl (85-98); Mean Platelet Volume 12.6 fL (7.4-10.4); Monocytes # 0.5 10^3/uL (0.2-0.9); Monocytes % 7.8 %; Neutrophils # 5.34 10^3/uL (1.8-7.7); Nucleated Red Blood Cells % 0 %; Platelet Count 49 10^3/cmm (157-399); Red Blood Count 2.31 10^6/uL (3.85-5.65); Red Cell Distribution Width 20.6 % (12.1-15.1); White Blood Count 6.51 10^3/uL (3.29-11.43)
[2022-12-29 05:33] LABS: Alanine Aminotransferase 27 U/L (0-33); Albumin Level 1.6 g/dL (3.5-5.2); Alkaline Phosphatase 179 U/L (35-105); Anion Gap 8.3 (5-19); Aspartate Amino Transferase 22 U/L (0-32); Blood Urea Nitrogen 15 mg/dL (8-23); Calcium 7.8 mg/dL (8.5-10.5); Carbon Dioxide 27 mmol/L (22-29); Chloride 96 mmol/L (98-107); Globulin 2.7 g/dL (1.3-4.6); Glomerular Filtration Rate 72.9 mL/min (90-130); Glucose 101 mg/dL (65-115); Osmolality Calculated 267 mOsm/kg (285-295); Potassium 3.3 mmol/L (3.5-5.1); Sodium 128 mmol/L (136-145); Total Bilirubin 0.8 mg/dL (0.15-1.2); Total Protein 4.3 g/dL (6.6-8.7)
[2022-12-29 05:35] LABS: Magnesium 1.9 mg/dL (1.7-2.3)
[2022-12-29] MEDS: budesonide 0.5 mg/2 mL Neb INHALATION (07:25)
[2022-12-29] MEDS: albuterol 2.5 mg/3 mL Neb INHALATION (07:25)
[2022-12-29] MEDS: benzonatate 100 mg Capsule PO ×3 (09:29→20:29)
[2022-12-29] MEDS: sennosides-docusate Tablet 1 TAB PO ×2 (09:29→18:20)
[2022-12-29] MEDS: docusate sodium 100 mg Capsule PO ×2 (09:29→18:21)
[2022-12-29] MEDS: pantoprazole DR 40 mg Tablet PO ×2 (09:29→18:21)
[2022-12-29] MEDS: guaiFENesin 600 mg Tablet PO ×2 (09:29→18:21)
[2022-12-29] MEDS: oxyCODONE 10 mg ER (12 HR) Tablet PO ×2 (09:30→18:21)
[2022-12-29] MEDS: nystatin 100,000 unit/mL UDC 5 mL 100000 UNIT PO ×4 (09:33→20:35)
[2022-12-29] MEDS: fluticasone nasal spray 16gm Btl 2 SPRAY NASAL (09:36)
[2022-12-29] MEDS: terbinafine 1% Cream 15 gm 1 APPLIC TOPICAL ×2 (10:36→19:43)
--- NOTE | 2022-12-29 13:28 | PM.CONSULT ---
Providers/Reason For Consult Consulting Physician/Specialty*: Dr. Burak Diez, DO/General surgery Reason for Consult*: Poor IV access Attending Physician: Danie Simms History of Present Illness History of Present Illness Skye Ambrose is a 62 year old female, with metastatic bladder cancer, who presented to the hospital with septic shock. She went into cardiac tamponade and was found to have a pericardial effusion which was found to be infectious. A pericardial window was performed. Cultures showed MRSA. She had a Mediport which I previously placed in June 2022 that was removed due to her bacteremia. A PICC line was not able to be placed and general surgery was consulted for vascular access. She has ischemia to her right hand which appears may resolve without significant tissue loss potentially. Review of Systems General: Reports: 10 or more systems reviewed and unremarkable except in HPI and below Medications/Allergies Home Medications Medication Instructions Recorded Confirmed Last Taken Type artifi.tears(hypromellose)(PF) 0.3 1 drp ophthalmic (eye) DAILY PRN 03/20/22 12/16/22 06/11/22 History % eye drops right eye albuterol sulfate 2.5 mg/3 mL 2.5 mg (3 mL) inhalation Q4H PRN 04/02/22 12/16/22 06/12/22 07:00 Rx (0.083 %) solution for nebulization shortness of breath or wheezing #300 mL albuterol sulfate 90 mcg/actuation 2 puff inhalation Q6H PRN 04/02/22 12/16/22 12/16/22 Rx aerosol inhaler (ProAir HFA) shortness of breath or wheezing #18 grams epinephrine 0.3 mg/0.3 mL 0.3 mg (0.3 mL) IM Q10M PRN 04/02/22 12/16/22 04/15/22 Rx injection, auto-injector (EpiPen) anaphylaxis #1 ea fluticasone propionate 50 2 spray intranasal DAILY #16 grams 04/02/22 12/16/22 06/11/22 Rx mcg/actuation nasal spray,suspension (Allergy Relief (fluticasone)) furosemide 40 mg tablet 80 mg PO DAILY #60 tabs 04/02/22 12/16/22 3 Days Ago Rx ~12/13/22 lidocaine 5 % topical patch 1 patch topical DAILY PRN pain #30 04/02/22 12/16/22 06/04/22 Rx ea potassium chloride 40 mEq/15 mL 40 meq (15 mL) PO DAILY #450 mL 04/02/22 12/16/22 1 Day Ago Rx oral liquid ~09/04/22 valacyclovir 1 gram tablet 1,000 mg PO DAILY 30 days #30 tabs 04/02/22 12/16/22 1 Day Ago Rx ~09/04/22 docusate sodium 100 mg capsule 100 mg PO BID PRN Constipation 08/29/22 12/16/22 Unknown History (DOK) nystatin 100,000 unit/mL oral 5 ml PO TID PRN unknown 10/22/22 12/16/22 Unknown History suspension oxycodone 5 mg tablet 5 mg PO Q8H PRN pain 30 days #30 11/07/22 12/16/22 Unknown Rx tabs oxycodone 10 mg tablet,crush 10 mg PO BID 7 days #14 tabs 11/15/22 12/16/22 12/15/22 Rx resistant,extended release 12 hr (OxyContin) ondansetron 4 mg disintegrating 4 mg PO TID #90 tabs 12/13/22 12/16/22 Unknown Rx tablet budesonide 0.5 mg/2 mL suspension 0.5 mg inhalation BID PRN unknown 12/16/22 12/16/22 Unknown History for nebulization (Pulmicort) erdafitinib 4 mg tablet 8 mg PO DAILY #42 tabs 12/16/22 Unknown Rx lidocaine-prilocaine 2.5 %-2.5 % See Rx Instructions .Route .COMPLEX 12/16/22 12/16/22 Unknown History topical cream megestrol 400 mg/10 mL (10 mL) 200 mg PO BID PRN unknown 12/16/22 12/16/22 Unknown History oral suspension Allergies Allergy/AdvReac Type Severity Reaction Status Date / Time ceftriaxone [From Rocephin] Allergy Severe ALGY-Anaphy Verified 12/16/22 10:01 laxis cephalexin [From Keflex] Allergy Severe ALGY-Anaphy Verified 12/16/22 10:01 laxis eszopiclone [Lunesta] Allergy Severe ADR-Agitate Verified 12/16/22 10:01 d zaleplon [From Sonata] Allergy Severe ADR-Halluci Verified 12/16/22 10:01 nating zolpidem [From Ambien] Allergy Severe ADR-Halluci Verified 12/16/22 10:01 nating dextromethorphan Allergy Intermediate ADR-Halluci Verified 12/16/22 10:01 nating Iodinated Contrast Media Allergy UNK Verified 12/16/22 10:01 ketoprofen Allergy Unknown Verified 12/16/22 10:01 ketorolac [From Toradol] Allergy UNK Verified 12/16/22 10:01 mirtazapine [From Remeron] Allergy UNK Verified 12/16/22 10:01 nitrofurantoin Allergy UNK Verified 12/16/22 10:01 [From Macrobid] rofecoxib [From Vioxx] Allergy UNK Verified 12/16/22 10:01 sulfamethoxazole Allergy UNK Verified 12/16/22 10:01 [From Bactrim] sumatriptan [From Imitrex] Allergy UNK Verified 12/16/22 10:01 trimethoprim [From Bactrim] Allergy UNK Verified 12/16/22 10:01 Current Medications Generic Name Dose Route Start Last Admin Trade Name Freq PRN Reason Stop Dose Admin Albuterol Sulfate 2.5 mg 12/20/22 14:00 12/29/22 07:25 Albuterol 2.5 Mg/3 Ml Neb INHALATION 2.5 mg Q6H.RESP JENNIFER Administration Benzonatate 100 mg 12/22/22 15:00 12/29/22 09:29 Benzonatate 100 Mg Capsule PO 100 mg TID JENNIFER Administration Budesonide 0.5 mg 12/16/22 20:00 12/29/22 07:25 Budesonide 0.5 Mg/2 Ml Neb INHALATION 0.5 mg BID.RESPIRATORY JENNIFER Administration Docusate Sodium 100 mg 12/19/22 18:00 12/29/22 09:29 Docusate Sodium 100 Mg Capsule PO 100 mg BID JENNIFER Administration Fluticasone Propionate 2 spray 12/20/22 09:00 12/29/22 09:36 Fluticasone Nasal [place] 16gm Btl NASAL 2 spray DAILY JENNIFER Administration Guaifenesin 200 mg 12/22/22 10:47 12/26/22 08:20 Guaifenesin 100 Mg/5 Ml Udc 10 Ml PO 200 mg Q4H PRN Administration COUGH AND CONGESTION Guaifenesin 600 mg 12/23/22 12:05 12/29/22 09:29 Guaifenesin 600 Mg Tablet PO 600 mg BID JENNIFER Administration Heparin Sodium (Porcine) 5,000 unit 12/26/22 14:00 12/29/22 01:41 Heparin 5,000 Unit/Ml Inj 1 Ml SUBCUT 5,000 unit Q12H JENNIFER Administration Ciprofloxacin/Dextrose 400 mg in 200 mls @ 200 mls/hr 12/21/22 15:30 12/29/22 04:09 Cipro IV Infused Q12H [facility] Infusion Protocol Daptomycin 306 mg/ Sodium 100 mls @ 100 mls/hr 12/28/22 11:00 12/29/22 13:07 Chloride IV Infused Q24H [facility] Infusion Protocol Itraconazole 200 mg 12/28/22 12:00 12/29/22 09:29 Itraconazole 100 Mg Capsule PO 200 mg DAILY JENNIFER Administration Lidocaine HCl 1 applic 12/26/22 17:22 12/29/22 04:33 Lidocaine 2% Jelly 6 Ml TOPICAL 1 applic PRN PRN Administration PAIN Lorazepam 0.5 mg 12/20/22 12:18 12/29/22 04:06 Lorazepam 0.5 Mg Tablet PO 0.5 mg TID PRN Administration ANXIETY Metoclopramide HCl 5 mg 12/28/22 11:48 12/28/22 22:05 Metoclopramide 5 Mg/Ml Sdv 2 Ml IVP 5 mg Q6H PRN Administration NAUSEA AND VOMITING Nystatin 100,000 unit 12/22/22 21:00 12/29/22 09:33 Nystatin 100,000 Unit/Ml Udc 5 Ml PO 100,000 unit QID JENNIEFR Administration Ondansetron HCl 4 mg 12/16/22 15:09 12/28/22 08:53 Ondansetron 2 Mg/Ml Sdv 2 Ml IVP 4 mg Q6H PRN Administration NAUSEA AND VOMITING Oxycodone HCl 5 mg 12/23/22 11:42 12/29/22 10:35 Oxycodone 5 Mg Ir Tab/Cap PO 5 mg Q4H PRN Administration MODERATE PAIN Oxycodone HCl 10 mg 12/26/22 21:06 12/29/22 09:30 Oxycodone 10 Mg Er (12 Hr) Tablet PO 10 mg BID JENNIFER Administration Pantoprazole Sodium 40 mg 12/20/22 09:00 12/29/22 09:[address] 40 Mg Tablet PO 40 mg BID JENNIFER Administration Senna/Docusate Sodium 1 tab 12/20/22 09:00 12/29/22 09:29 Sennosides-Docusate Tablet PO 1 tab BID JENNIFER Administration Terbinafine HCl 1 applic 12/28/22 18:00 12/29/22 10:36 Terbinafine 1% Cream 15 Gm TOPICAL 1 applic BID JENNIFER Administration Zinc Acetate/Diphenhydramine 1 applic 12/29/22 03:56 12/29/22 04:08 Diphenhydramine Cream 30 Gm TOPICAL 1 applic Q4H PRN Administration ITCHING PFSH Acute PFSH: Medical History Allergy to iodine Anemia Anxiety, generalized Bladder cancer CAD (coronary artery disease) Chronic post-traumatic stress disorder (PTSD) COPD (chronic obstructive pulmonary disease) Hypertension Lumbar radiculopathy, chronic Metastatic urothelial carcinoma Pericardial effusion without cardiac tamponade Port-A-Cath in place Post herpetic neuralgia Pyelonephritis Urinary tract infection UTI (urinary tract infection) Vitamin D insufficiency Surgical History History of abdominoplasty History of bladder surgery History of breast augmentation Saline History of heart artery stent 2 stents September 2013 History of tubal ligation Family History Sister Diabetes Brother Diabetes Denies family history of Bleeding disorder Social History Smoking and tobacco/nicotine status: current every day tobacco/nicotine user cigarettes Packs smoked per day: 1 Years cigarettes smoked: 45 Second hand smoke exposure: Yes Alcohol intake: unknown Substance/Drug Use: unknown Adopted: No Caregiver/support person: No Lives independently: Yes Household members: spouse Marital status: Number of children: 5 service: No Do you think of yourself as: Straight/Heterosexual Current gender identity: Female Vitals/I&O/Wt Last Vital Signs Temp 98.7 F 12/29/22 13:26 Pulse 102 H 12/29/22 13:26 Resp 24 H 12/29/22 13:26 BP 119/74 12/29/22 13:26 Pulse Ox 93 12/29/22 13:26 O2 Del Method Nasal Cannula 12/29/22 07:29 O2 Flow Rate 1 12/29/22 07:29 FiO2 35 12/19/22 13:11 12/28/22 12/29/22 12/29/22 22:59 06:59 14:59 Intake Total 890 / 1630 880 / 2510 100 / 100 Output Total 750 / 900 725 / 1625 Balance 140 / 730 155 / 885 100 / 100 Weight last 48 hrs Weight 123 lb 9.6 oz Weight 112 lb 7 oz Physical Exam Narrative: General : Patient is well developed , no acute distress, she is weak at the moment, oriented x3 Head : Normal cephalic, a-traumatic. Ears : Pinnae and external canal are normal. Hearing is normal. Eyes : PERRLA, Sclera and injection are normal. No conjunctival discharge. Nose : Mucous membranes are without erythema. Throat : buccal mucosa is normal, gums are without significant recession or hypertrophy. Lungs : Equal chest rise bilaterally, no use of accessory muscles, trachea is midline. Cor : Rate and rhythm are normal. Abdomen : Soft, ND, NT, no g/r/m Skin: The previous site of Mediport removal has no exudate, induration or erythema. Nylon sutures in place Extremities : No edema, no cyanosis or clubbing, dorsalis pedis pulses are present bilaterally, non-tender to palpation of calves. Upper extremities are normal bilaterally. Back : non-tender to palpation, no CVA tenderness. Neuro : CN II - XII intact, Upper and lower extremities have equal and full strength Urinary Catheter Management: Coffman: Cath Placed During This Visit: yes Reason for Continuing Indwelling Catheter: Acute Urinary Retention or Obstruction Urinary Catheter Date of Insertion: 12/16/22 Urinary Catheter Time of Insertion: 14:02 Data 12/29/22 04:39 12/29/22 04:39 Micro: Microbiology 12/27/22 15:55 Blood Culture - Preliminary Blood NEGATIVE TO DATE 12/27/22 15:00 Blood Culture - Preliminary Blood NEGATIVE TO DATE A&P Assessment and plan (1) Poor venous access: Plan N.p.o. after midnight Mediport placement The risks and benefits of the procedure, including but not limited to, bleeding, infection, infection requiring Mediport removal antibiotic therapy and repeat surgery, damage to surrounding structures, scar, numbness, pain, pneumothorax requiring thoracostomy tube, were explained to the patient. He/She is understanding of the risks and wishes to proceed. Coding Level of Care Code 22336 Diagnoses Poor venous access I87.8
--- NOTE | 2022-12-29 19:37 | P.PN_ITS ---
Subjective Subjective: Some numbness in the right hand today, but she has been elevating it. There is no edema there. Left arm does have edema. Discussed with her to elevate left arm, not right. Discussed with her to avoid keeping right arm elevated due to decreased perfusion. Otherwise no changes in the hand/distal fingers. Vitals/I&O/Wt Last Vital Signs Temp 98.9 F 12/29/22 19:29 Pulse 95 12/29/22 19:29 Resp 25 H 12/29/22 19:34 BP 117/72 12/29/22 19:29 Pulse Ox 96 12/29/22 19:34 O2 Del Method Room Air 12/29/22 19:29 O2 Flow Rate 1 12/29/22 14:00 FiO2 35 12/19/22 13:11 12/29/22 12/29/22 12/29/22 06:59 14:59 22:59 Intake Total 880 / 2510 100 / 100 200 / 300 Output Total 725 / 1625 350 / 350 Balance 155 / 885 -250 / -250 200 / -50 Weight last 48 hrs Weight 56.064 kg Weight 51.001 kg Physical Exam Const: COMMON NORMALS: patient oriented x3 and alert GENERAL APPEARANCE: cooperative ORIENTATION/CONSCIOUSNESS: Yes awake HENMT: COMMON NORMALS: oropharynx normal Neck/C-Spine: COMMON NORMALS: no JVD Resp: COMMON NORMALS: normal respiratory effort and clear to auscultation bilaterally AUSCULTATION: clear to auscultation bilaterally Cardio: COMMON NORMALS: no JVD, regular rhythm, S1 normal heart sound present, S2 normal heart sound present and No murmurs present (Cardio) RHYTHM: regular rhythm HEART SOUNDS: S1 normal heart sound present and S2 normal heart sound present GI: COMMON NORMALS: Normal to inspection, nondistended, normoactive bowel sounds present, Soft to palpation and non-tender PALPATION: Yes Soft to palpation Extremity: COMMON NORMALS: no joint enlargement GENERAL: Yes edema (trace at ankles. Tender edema of thighs and hips. Elbows.) OTHER: L hand appearing pink, black fingertips up to distal MTP on several fingers, she reports without worsening. Mildly dusky appearance R index finger, but without darkening/blackening. Warm. Able to move it. Elongated bruise on medial R forearm. Neuro: COMMON NORMALS: patient oriented x3 and moves all extremities SENSORIUM/ORIENTATION: Yes alert Urinary Catheter Management: Coffman: Cath Placed During This Visit: yes Reason for Continuing Indwelling Catheter: Accurate Measurement of Urinary Output in Critically Ill Patients Urinary Catheter Date of Insertion: 12/16/22 Urinary Catheter Time of Insertion: 14:02 Data 12/29/22 04:39 12/29/22 04:39 Micro: Microbiology 12/27/22 15:55 Blood Culture - Preliminary Blood NEGATIVE TO DATE 12/27/22 15:00 Blood Culture - Preliminary Blood NEGATIVE TO DATE A&P Assessment and plan (1) Anemia: Reviewed CBC, noted anemia, hemoglobin at 7.5. Discussed with her. Platelets improving on review up to 49,000. She did not note any bleeding, no hematuria, no hematochezia/melena. Hemoccult has been requested. We will follow-up DIC profile, although thrombocytopenia has been improving. Suspect may be some dilutional hemoglobin changes as she does appear somewhat in positive balance and also with improving thrombocytopenia. Discussed with her reassessing CBC. However, if dropping further may need to consider additional transfusion. She is otherwise afebrile, without leukocytosis. Once central line is out, and on established antibiotic course, Will need folic acid supplementation due to deficiency. (2) MRSA (methicillin resistant Staphylococcus aureus) septicemia: We discussed with her again difficulties with access. Midline catheter had to be removed due to malfunction. CVC needs to be removed due to risk of infection, although has not had reliable IV access so was kept in until obtained. Requested change of antibiotic back to vancomycin. Central line to be pulled after tonight's dose with plans for either placement of port tomorrow or if not then possibly consider a fresh central line until stable access established. As per discussion with PICC line nurse very difficult access, could not place PICC line. Even difficulties with midline catheter. Very small veins. No ability for better peripheral access. Midline catheter was placed initially, however, reported catheter not recommended for use with vancomycin was transiently switched to daptomycin. Midline catheter subsequently stopped functioning. Had to be removed. Small IV obtained left hand, but not likely to last very long. Without stable available access, discussed with her unfortunately risk of infection with right-sided CVC. Discussed with surgery further options for access, recommend Port-A-Cath placement on Friday. Additionally some serous drainage noted from site of prior Port-A-Cath in left chest with iodoform in place, sutures. Discussed with surgery who reassessed and updated wound care orders. Reviewed additional blood culture 12/27, preliminary noted negative. Reviewed again blood culture from 12/25, remaining negative to date. Final blood culture 12/18 noted 2/4 bottles MRSA. Original Port-A-Cath has been explanted. 6 weeks antibiotic therapy until 01/29 Initial plan with vancomycin, switched to daptomycin. (3) Fluid overload: For now held additional Lasix. Reassess. Reassess albumin. Continue to encourage nutrition. Mobilize. Reassess volume status. Avoid hypotension. Consider intermittent repeat Lasix doses depending on volume status and condition. Reassess electrolytes, renal function. Reassess volume status. Reviewed chemistry: Noted mild hypokalemia. Will give potassium replacement. Repeat chemistry. Reassess volume status, monitor renal function with recent INDRA, at risk of renal dysfunction with diuresis. At risk of further electrolyte abnormalities with persistent potassium and magnesium deficiency. Continue replacement. Monitor on telemetry. (4) Ischemia of right upper extremity: Some numbness today, but seems she has been elevating the right upper extremity together with the left. Discussed with her no edema noted in the right upper extremity, edema in the left. She will continue to elevate left upper extremity, avoid elevation of the right due to poor perfusion. Otherwise no changes of worsening of perfusion. Overall gradually improving. Pain subsiding. Reperfusion injury appears to be improving. Continue to follow. Some pain in the right hand, right hand appears pinkish, some reperfusion injury suspected. No worsening swelling, no signs of worsening perfusion. Has had dopplerable ulnar and radial pulse. Continue neurovascular checks. Some local lidocaine for symptom control. As discussed with her on trial of prophylactic SC heparin. Venous duplex was obtained, noted no DVT, noted incidentally right radial artery occlusion. At bedside dopplerable pulses this morning obtained at the ulnar as well as radial artery. Hand appears similar to yesterday, distal fingertips with blackened appearance, hand is warm, similar in appearance in terms of perfusion. She is able to open and close her hand. Minimal swelling. Monitor symptoms. Discussed with her concern of some reperfusion symptoms, injury, may be at risk of compartment syndrome in case worsening as well. Continue neurovascular checks. Continue to monitor. Gradually and very slowly improving perfusion in the right hand. Persistent blackened distal fingers. Able to slowly open and close the hand. Most likely in setting of DIC along with arterial line and ABG. Currently stable. Pulses dopplerable. Hand warm to touch with persistent cyanosis of fingertips and nails. Continue with physical therapy. (5) Thrombocytopenia: Reviewed platelet level -continue to gradually improve. Follow-up CBC requested. Monitor platelets with initiation of heparin prophylaxis. So far platelets are recovering well. Not likely HIT. Improving hemoptysis, now more appearance of old clots. although it has been decreasing. Not yet started on prophylactic anticoagulation. Severe thrombocytopenia. Risk of bleeding. With hemoptysis. Platelet levels reviewed, noted gradual mild improvement. Nontoxic. Discussed with her. Suspected recovering from DIC. Monitor platelet count daily. Watch for anemia. Hold off on transfusion. (6) Pericardial effusion: Discussed with her regarding possibly of targeted with a oral treatment. Discussed with patient. She would like to try to set the goal of returning blaise e. Discussed with family independence case manager. Lives at home with her . Reviewed CT surgery note. Chest tube had been removed today. Transfer to [facility], continue additional monitoring. Discussed with CT surgery. Continue weaning down prednisone. Discontinue after tomorrow. Patient with significant pericardial effusion, which could also cause hypotension. With concerns for tamponade on admission. Post pericardial window and drain in which 750 cc of bloody fluid was drained. During procedure had cardiopulmonary arrest requiring 1 round of CPR. Currently neurologically intact. (7) Sepsis: Repeat chest x-ray close at follow-up infiltrate. Septic shock resolved. Continues on vancomycin DC Cipro DC'd prednisone. Keep mean artery pressure 65. Blood cultures growing MRSA, urine culture growing E. coli and Proteus vulgaris. Source of infection most likely port which was removed on 12/18. Culture also growing coag positive staph. Blood cultures from 12/18 so far negative. Appreciate ID recommendations. Continue with current antibiotics of IV vancomycin and ciprofloxacin as per culture sensitivities. Monitor trough levels. Antibiotics to be dosed as per renal functions. (8) INDRA (acute kidney injury): Renal function reviewed. Vancomycin trough reviewed. Discussed with pharmacist. Resolved. Reviewed BUN, creatinine, electrolytes. Coffman catheter in place. Follow-up chemistry. (9) Acute respiratory failure: Improving. Hypoxia resolved. Down to room air. Temperature opacifications on bilateral lower lobes. However, symptomatically continues to improve. Sputum production continue to improve. Hemoptysis resolving. No leukocytosis. Afebrile. Encouraged incentive spirometer. Improving/mostly resolved nasal and chest congestion. Bring up phlegm, some hemoptysis still noted, but she states they have been improving. Some difficulty bringing up phlegm. Discussed with her starting Mucinex, add flutter valve. Continue oxygen support. Wean down as tolerating. Continue I-S. Currently in neutral balance. Monitor for fluid overload, consider diuretic as needed. Had acute respiratory failure during cardiac arrest. Able to be extubated successfully on 12/19. (10) Hemoptysis: Repeat chest x-ray reviewed, discussed with her. Noted patchy fasciculations i n bilateral lower lungs, but would suspect more atelectasis given symptomatically she continues to improve. Without leukocytosis, afebrile. Encouraged incentive spirometer. Bronchitis has been resolving. Hemoptysis nearly resolved. Slowly improving. Suspect possibly secondary to bronchitis. Scheduled Mucinex. Flutter valve. Continue to monitor platelets. Start on Tessalon Perles scheduled and Robitussin as needed. (11) Transaminitis: Reviewed liver parameters - transaminitis resolved. Likely secondary to sepsis, elevation secondary to cardiac arrest. LFTs improving (12) Cardiac arrest: Status postcardiac arrest with induction. She required 2 minutes, 1 cycle, of CPR. She appears to be following direction and is likely neurologically intact. Continue to follow closely. (13) Pericardial effusion with cardiac tamponade: Status post pericardial window. (14) Malignant pericardial effusion in disease classified elsewhere: (15) Hypoalbuminemia: (16) Metastatic urothelial carcinoma: Patient appears to be on palliative chemotherapy. Last treatment around November 12 (17) Hyponatremia: Resolving. Continue to monitor daily. (18) Hyperkalemia: Resolved (19) UTI (urinary tract infection): Repeat urine culture w no growth. Antibiotics changed as above. Discontinue ciprofloxacin. (20) Hypotension: Patient initially hypotensive secondary to sepsis versus tamponade. This has resolved Plan Rash: 2 circumscribed lesions on the left side of the forehead, with erythematous slightly raised borders, mild scaling, she reports it is pruritic. possible tinea capitis and corporis noted on forehead and abdomen. Additionally has oropharyngeal candidiasis. Immunocompromised with malignancy. We will start topical terbinafine but also give itraconazole. Hypomagnesemia: Hypomagnesemia replaced. Follow-up level. Hypokalemia: Mild hypokalemia noted on review of potassium today. Repeat potassium dose. Repeat potassium level requested. Lines: Right-sided IJ, Coffman catheter Analgesia: Pain relief is short lasting, discussed with her increasing frequency to every 4 hours on oxycodone. Glycemic control: Not needed. Nutrition: GI soft diet. Ensure protein shakes with each meal CODE STATUS: DPOA. Full code. PUD prophylaxis: Protonix twice daily DVT prophylaxis: Heparin, SCDs. Discharge planning: options were discussed with patient and family per discussion with discharge planning. They declined and unable to consider SNF. Home health to be requested for discharge. Diet: Reviewed albumin, noted persistently low. Ensure w dysphagia regular diet. This documentation was created by [employer] separator [employer] software. Every effort was made to ensure accuracy of [employer]. Any obvious errors or omissions should be clarified with the author of the document. Attestations Medical Necessity Statement*: Continue admission for assessment management of risk of DVT, trial of initiation of prophylactic heparin, IV access for completion of IV antibiotic course following MRSA bacteremia, and reassessment of?thrombocytopenia, anemia, additional medical problems as above. Diagnoses Anemia D64.9 MRSA (methicillin resistant Staphylococcus aureus) septicemia A41.02 Fluid overload E87.70 Ischemia of right upper extremity I99.8 Thrombocytopenia D69.6 Pericardial effusion I31.39 Sepsis A41.9 INDRA (acute kidney injury) N17.9 Acute respiratory failure J96.00 Hemoptysis R04.2 Transaminitis R74.01 Cardiac arrest I46.9 Pericardial effusion with cardiac tamponade I31.39; I31.4 Malignant pericardial effusion in disease classified elsewhere I31.31 Hypoalbuminemia E88.09 Metastatic urothelial carcinoma C79.10 Hyponatremia E87.1 Hyperkalemia E87.5 UTI (urinary tract infection) N39.0 Hypotension I95.9
[2022-12-29] MEDS: vancomycin 1,000 MG in sodium chloride 0.9% 250 ML 250 MG IV (20:30)
[2022-12-29] MEDS: potassium chloride ER 20 mEq Tablet 40 MEQ PO (20:36)
[2022-12-30] VITALS (70 sets, daily range): BP systolic 79–135; BP diastolic 50–72; PULSE 84–112; RESP 9–30; TEMP 36.1–37.9; O2SAT 78–100
--- NOTE | 2022-12-30 | XRR_ITS ---
PROCEDURE INFORMATION: Exam: XR Chest Exam date and time: 12/30/2022 9:29 AM Age: 62 years old Clinical indication: Device placement; Other: Mediport placement; Prior surgery; Surgery date: Post-operative (0-2 days); Additional info: Post op TECHNIQUE: Imaging protocol: Radiologic exam of the chest. 1image(s) are provided. Views: 1 view. COMPARISON: 1. OT C-arm FL for CVA [id number] 12/30/2022 7:51 AM 2. CR (CHEST, ) 12/28/2022 6:50 PM 3. CR XR chest 1V portable [id number] 12/19/2022 7:01 AM FINDINGS: Tubes, catheters and devices: There is an interval right port catheter present with the tip overlying the cavoatrial junction. Correlate with blood return for placement and clinical usage. There are clips overlying the lower midline level similar overall. There is interval removal of the right jugular line. Lungs: There is some similar consolidative volume loss at the left lung base. There is some persistent albeit increased interval opacification about the right lung base lower lung zone. Pleural spaces: There is some costophrenic angle blunting. No pneumothorax is appreciated. Heart/Mediastinum: The cardiomediastinal silhouette is borderline in size.This can be seen with central averaging as well as homer enlargement.No cardiac decompensation is appreciated. This can also be seen with cardiomegaly and/or pericardial fluid. There appears to be some coronary stent material present. Diaphragm: The hemidiaphragms are somewhat obscured. Bones/joints: Osseous alignment is maintained.No interval displaced fracture or dislocation is appreciated. Soft tissues: No radiopaque foreign body or subcutaneous emphysema is appreciated. There are some chest wall surgical changes present. Other findings: No other significant interval changes are appreciated. XR/XR chest 1V portable [id number] IMPRESSION: 1. There is an interval right port catheter present with the tip overlying the cavoatrial junction. No interval pneumothorax or cardiac decompensation is appreciated. 2. There is some similar consolidative volume loss and pleural fluid at the left lung base with some interval increased inflammatory appearance about the right lung base.
--- NOTE | 2022-12-30 | SC_ITS ---
WS: [id number] C-ARM RADIOGRAPHS CHEST; 2 IMAGES HISTORY: MEDIPORT PLACEMENT COMPARISON: None available. Right-sided Mediport tip in the distal SVC. IMPRESSION: Intraoperative imaging during Mediport placement.
[2022-12-30 02:03] LABS: Reflex FDPQ test REFLEX FDP QUEST TES
[2022-12-30 02:06] LABS: Basophils % 0.2 %; Eosinophils # 0.1 10^3/uL (0.0-0.8); Eosinophils % 0.9 %; Hematocrit 23.7 % (36-47); Lymphocytes # 0.5 10^3/uL (0.8-4.8); Lymphocytes % 8.2 %; Mean Corpuscular HGB Conc 31.6 g/dL (30-55); Mean Corpuscular Volume 104.4 fl (85-98); Mean Platelet Volume 11.8 fL (7.4-10.4); Monocytes # 0.5 10^3/uL (0.2-0.9); Neutrophils # 5.45 10^3/uL (1.8-7.7); Neutrophils % 82.2 %; Nucleated Red Blood Cells % 0 %; Platelet Count 53 10^3/cmm (157-399); Red Blood Count 2.27 10^6/uL (3.85-5.65); Red Cell Distribution Width 19.9 % (12.1-15.1); White Blood Count 6.62 10^3/uL (3.29-11.43)
[2022-12-30 02:16] LABS: INR 1.23 (0.8-1.2)
[2022-12-30 02:17] LABS: Partial Thromboplastin Time 41.2 SECONDS (23.9-36.7)
[2022-12-30 02:18] LABS: Fibrinogen 611 mg/dL (174-498)
[2022-12-30 02:26] LABS: Alanine Aminotransferase 22 U/L (0-33); Albumin Level 1.8 g/dL (3.5-5.2); Alkaline Phosphatase 190 U/L (35-105); Anion Gap 8.2 (5-19); Aspartate Amino Transferase 18 U/L (0-32); Blood Urea Nitrogen 15 mg/dL (8-23); Carbon Dioxide 28 mmol/L (22-29); Chloride 101 mmol/L (98-107); Globulin 2.8 g/dL (1.3-4.6); Glomerular Filtration Rate 85.1 mL/min (90-130); Glucose 89 mg/dL (65-115); Osmolality Calculated 276 mOsm/kg (285-295); Potassium 4.2 mmol/L (3.5-5.1); Sodium 133 mmol/L (136-145); Total Bilirubin 0.9 mg/dL (0.15-1.2); Total Protein 4.6 g/dL (6.6-8.7)
[2022-12-30 02:27] LABS: D Dimer 16.76 ug/mLFEU (0-0.59); Magnesium 1.6 mg/dL (1.7-2.3)
--- NOTE | 2022-12-30 02:33 | PC.NURSE ---
Discontinued Central line with assistance of Leny MAYO supervisor sample preparation. Patient was laid in supine position. Site was cleansed with chlorohexadine prior to removal. Sutures were removed and catheter was pulled after patient was asked to hold breath and bear down. Catheter was pulled without resistance, no clot formation noted on catheter tip. Tip was sent to lab for culture. Patient tolerated well. Dry sterile dressing was applied.
[2022-12-30] MEDS: heparin 5,000 unit/mL INJ 1 mL 5000 UNIT SUBCUT ×4 (03:23→14:04)
[2022-12-30] MEDS: LORazepam 0.5 mg Tablet PO ×2 (03:36→12:18)
[2022-12-30] MEDS: oxyCODONE 5 mg IR Tab/Cap PO ×4 (03:37→20:40)
--- NOTE | 2022-12-30 07:04 | PM.PN ---
Vitals/I&O/Wt Last Vital Signs Temp 98.9 F 12/29/22 19:29 Pulse 94 12/30/22 06:00 Resp 18 12/30/22 04:00 BP 117/59 12/30/22 04:00 Pulse Ox 96 12/30/22 04:00 O2 Del Method Nasal Cannula 12/30/22 04:00 O2 Flow Rate 2 12/30/22 04:00 FiO2 35 12/19/22 13:11 12/29/22 12/30/22 12/30/22 22:59 06:59 14:59 Intake Total 890 / 990 Output Total 300 / 650 425 / 1075 Balance 590 / 340 -425 / -85 Weight last 48 hrs Weight 113 lb 3.2 oz Weight 123 lb 9.6 oz Physical Exam Urinary Catheter Management: Coffman: Cath Placed During This Visit: yes Reason for Continuing Indwelling Catheter: Acute Urinary Retention or Obstruction Urinary Catheter Date of Insertion: 12/16/22 Urinary Catheter Time of Insertion: 14:02 Data 12/30/22 01:58 12/30/22 01:58 Micro: Microbiology 12/25/22 03:55 Blood Culture - Final Blood NO GROWTH AFTER 5 DAYS 12/25/22 03:55 Blood Culture - Final Blood NO GROWTH AFTER 5 DAYS A&P Assessment and plan (1) Poor venous access: Plan Mediport placement The risks and benefits of the procedure, including but not limited to, bleeding, infection, infection requiring Mediport removal antibiotic therapy and repeat surgery, damage to surrounding structures, scar, numbness, pain, pneumothorax requiring thoracostomy tube, were explained to the patient. He/She is understanding of the risks and wishes to proceed. Attestations Medical Necessity Statement*: per primary Coding Level of Care Code Acute Code for Chg Fwd Diagnoses Poor venous access I87.8
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
--- NOTE | 2022-12-30 07:30 | PC.NURSE ---
Pt demanding a med to put her to sleep in order to go to surgery at this time. Surgery personnel here to take pt to surgery for port placement
--- NOTE | 2022-12-30 07:30 | PC.NURSE ---
had been up to see patient and patient is now agreeing to go for surgery at this time Consent was signed at bedside with nurse present.
[2022-12-30] MEDS: midazolam 1 mg/mL INJ 2 mL 2 MG IVP (07:39)
--- NOTE | 2022-12-30 07:51 | P.ANESASSM_ITS ---
Pre-Anesthetic Assessment Height/Weight: Height 1.55 m Weight 51.347 kg Temp Pulse Resp BP Pulse Ox O2 Del Method O2 Flow Rate 98.9 F 94 18 117/59 96 Nasal Cannula 2 12/29/22 19:29 12/30/22 06:00 12/30/22 04:00 12/30/22 04:00 12/30/22 04:00 12/30/22 04:00 12/30/22 04:00 FiO2 35 12/19/22 13:11 Preop Diagnosis: MRSA bacteremia Operation Date: 12/16/22 14:30 Proposed Procedures p Pericardial Window(Not Applicable) - Bennie Randall MD Operation Date: 12/18/22 14:20 Proposed Procedures p Portacath Removal(Not Applicable) - Rudy Peres MD Operation Date: 12/30/22 12:50 Proposed Procedures p Portacath Placement(Left) - Burak Diez DO Familial anesthetic complications: Coded during pericardial window Was Beta Юлия taken within 24 hours: N/A Was Clonidine taken within 24 hours: N/A Last intake: Intake Last Liquid Date 12/29/22 Last Liquid Time 23:58 Last Solid Date 12/29/22 Last Solid Time 23:00 Social Tobacco and No alcohol Exam alert, oriented x 3, clear to auscultation bilaterally and regular rate & rhythm Patient not entirely cooperative with exam and interview, demanding BZD MILY or threatening to deny proceeding with mediport placement Airway Mallampati: Class II Pulmonary Chronic Obstructive Pulmonary Disease Hx PTX d/t patient sitting upright during a mediport placement CV/HEM Hypertension and Peripheral Vascular Disease pericardial window for tamponade w/ introperative code thrombocytopenia and anemia DIC INDRA Hepatic shock liver Metabolic Sepsis w/ MRSA bacteremia [facility] [place] [place] cancer Anesthetic Plan ASA status: 4 Anesthesia: MAC Risk of > 500 ml blood loss (7ml/kg in children): No Medications/Allergies Home Medications Medication Instructions Recorded Confirmed Last Taken Type artifi.tears(hypromellose)(PF) 0.3 1 drp ophthalmic (eye) DAILY PRN 03/20/22 12/16/22 06/11/22 History % eye drops right eye albuterol sulfate 2.5 mg/3 mL 2.5 mg (3 mL) inhalation Q4H PRN 04/02/22 12/16/22 06/12/22 07:00 Rx (0.083 %) solution for nebulization shortness of breath or wheezing #300 mL albuterol sulfate 90 mcg/actuation 2 puff inhalation Q6H PRN 04/02/22 12/16/22 12/16/22 Rx aerosol inhaler (ProAir HFA) shortness of breath or wheezing #18 grams epinephrine 0.3 mg/0.3 mL 0.3 mg (0.3 mL) IM Q10M PRN 04/02/22 12/16/22 04/15/22 Rx injection, auto-injector (EpiPen) anaphylaxis #1 ea fluticasone propionate 50 2 spray intranasal DAILY #16 grams 04/02/22 12/16/22 06/11/22 Rx mcg/actuation nasal spray,suspension (Allergy Relief (fluticasone)) furosemide 40 mg tablet 80 mg PO DAILY #60 tabs 04/02/22 12/16/22 3 Days Ago Rx ~12/13/22 lidocaine 5 % topical patch 1 patch topical DAILY PRN pain #30 04/02/22 12/16/22 06/04/22 Rx ea potassium chloride 40 mEq/15 mL 40 meq (15 mL) PO DAILY #450 mL 04/02/22 12/16/22 1 Day Ago Rx oral liquid ~09/04/22 valacyclovir 1 gram tablet 1,000 mg PO DAILY 30 days #30 tabs 04/02/22 12/16/22 1 Day Ago Rx ~09/04/22 docusate sodium 100 mg capsule 100 mg PO BID PRN Constipation 08/29/22 12/16/22 Unknown History (DOK) nystatin 100,000 unit/mL oral 5 ml PO TID PRN unknown 10/22/22 12/16/22 Unknown History suspension oxycodone 5 mg tablet 5 mg PO Q8H PRN pain 30 days #30 11/07/22 12/16/22 Unknown Rx tabs oxycodone 10 mg tablet,crush 10 mg PO BID 7 days #14 tabs 11/15/22 12/16/22 12/15/22 Rx resistant,extended release 12 hr (OxyContin) ondansetron 4 mg disintegrating 4 mg PO TID #90 tabs 12/13/22 12/16/22 Unknown Rx tablet budesonide 0.5 mg/2 mL suspension 0.5 mg inhalation BID PRN unknown 12/16/22 12/16/22 Unknown History for nebulization (Pulmicort) erdafitinib 4 mg tablet 8 mg PO DAILY #42 tabs 12/16/22 Unknown Rx lidocaine-prilocaine 2.5 %-2.5 % See Rx Instructions .Route .COMPLEX 12/16/22 12/16/22 Unknown History topical cream megestrol 400 mg/10 mL (10 mL) 200 mg PO BID PRN unknown 12/16/22 12/16/22 Unknown History oral suspension Allergies Allergy/AdvReac Type Severity Reaction Status Date / Time ceftriaxone [From Rocephin] Allergy Severe ALGY-Anaphy Verified 12/16/22 10:01 laxis cephalexin [From Keflex] Allergy Severe ALGY-Anaphy Verified 12/16/22 10:01 laxis eszopiclone [Lunesta] Allergy Severe ADR-Agitate Verified 12/16/22 10:01 d zaleplon [From Sonata] Allergy Severe ADR-Halluci Verified 12/16/22 10:01 nating zolpidem [From Ambien] Allergy Severe ADR-Halluci Verified 12/16/22 10:01 nating dextromethorphan Allergy Intermediate ADR-Halluci Verified 12/16/22 10:01 nating Iodinated Contrast Media Allergy UNK Verified 12/16/22 10:01 ketoprofen Allergy Unknown Verified 12/16/22 10:01 ketorolac [From Toradol] Allergy UNK Verified 12/16/22 10:01 mirtazapine [From Remeron] Allergy UNK Verified 12/16/22 10:01 nitrofurantoin Allergy UNK Verified 12/16/22 10:01 [From Macrobid] rofecoxib [From Vioxx] Allergy UNK Verified 12/16/22 10:01 sulfamethoxazole Allergy UNK Verified 12/16/22 10:01 [From Bactrim] sumatriptan [From Imitrex] Allergy UNK Verified 12/16/22 10:01 trimethoprim [From Bactrim] Allergy UNK Verified 12/16/22 10:01 Current Medications Generic Name Dose Route Start Last Admin Trade Name Freq PRN Reason Stop Dose Admin Albuterol Sulfate 2.5 mg 12/20/22 14:00 12/30/22 01:27 Albuterol 2.5 Mg/3 Ml Neb INHALATION Not Given Q6H.RESP JENNIFER Benzonatate 100 mg 12/22/22 15:00 12/29/22 20:29 Benzonatate 100 Mg Capsule PO 100 mg TID JENNIFER Administration Budesonide 0.5 mg 12/16/22 20:00 12/29/22 19:59 Budesonide 0.5 Mg/2 Ml Neb INHALATION Not Given BID.RESPIRATORY JENNIFER Docusate Sodium 100 mg 12/19/22 18:00 12/29/22 18:21 Docusate Sodium 100 Mg Capsule PO 100 mg BID JENNIFER Administration Fluticasone Propionate 2 spray 12/20/22 09:00 12/29/22 09:36 Fluticasone Nasal [place] 16gm Btl NASAL 2 spray DAILY JENNIFER Administration Guaifenesin 200 mg 12/22/22 10:47 12/26/22 08:20 Guaifenesin 100 Mg/5 Ml Udc 10 Ml PO 200 mg Q4H PRN Administration COUGH AND CONGESTION Guaifenesin 600 mg 12/23/22 12:05 12/29/22 18:21 Guaifenesin 600 Mg Tablet PO 600 mg BID JENNIFER Administration Heparin Sodium (Porcine) 5,000 unit 12/26/22 14:00 12/30/22 03:23 Heparin 5,000 Unit/Ml Inj 1 Ml SUBCUT 5,000 unit Q12H JENNIFER Administration Vancomycin HCl 1,000 mg/ 250 mls @ 250 mls/hr 12/29/22 21:00 12/29/22 21:32 Sodium Chloride IV Infused Q18H JENNIFER Infusion Itraconazole 200 mg 12/28/22 12:00 12/29/22 09:29 Itraconazole 100 Mg Capsule PO 200 mg DAILY JENNIFER Administration Lidocaine HCl 1 applic 12/26/22 17:22 12/29/22 04:33 Lidocaine 2% Jelly 6 Ml TOPICAL 1 applic PRN PRN Administration PAIN Lorazepam 0.5 mg 12/20/22 12:18 12/30/22 03:36 Lorazepam 0.5 Mg Tablet PO 0.5 mg TID PRN Administration ANXIETY Metoclopramide HCl 5 mg 12/28/22 11:48 12/28/22 22:05 Metoclopramide 5 Mg/Ml Sdv 2 Ml IVP 5 mg Q6H PRN Administration NAUSEA AND VOMITING Nystatin 100,000 unit 12/22/22 21:00 12/29/22 20:35 Nystatin 100,000 Unit/Ml Udc 5 Ml PO 100,000 unit QID JENNIFER Administration Ondansetron HCl 4 mg 12/16/22 15:09 12/28/22 08:53 Ondansetron 2 Mg/Ml Sdv 2 Ml IVP 4 mg Q6H PRN Administration NAUSEA AND VOMITING Oxycodone HCl 5 mg 12/23/22 11:42 12/30/22 03:37 Oxycodone 5 Mg Ir Tab/Cap PO 5 mg Q4H PRN Administration MODERATE PAIN Oxycodone HCl 10 mg 12/26/22 21:06 12/29/22 18:21 Oxycodone 10 Mg Er (12 Hr) Tablet PO 10 mg BID JENNIFER Administration Pantoprazole Sodium 40 mg 12/20/22 09:00 12/29/22 18:[address] 40 Mg Tablet PO 40 mg BID JENNIFER Administration Senna/Docusate Sodium 1 tab 12/20/22 09:00 12/29/22 18:20 Sennosides-Docusate Tablet PO 1 tab BID JENNIFER Administration Terbinafine HCl 1 applic 12/28/22 18:00 12/29/22 19:43 Terbinafine 1% Cream 15 Gm TOPICAL 1 applic BID JENNIFER Administration Zinc Acetate/Diphenhydramine 1 applic 12/29/22 03:56 12/29/22 04:08 Diphenhydramine Cream 30 Gm TOPICAL 1 applic Q4H PRN Administration ITCHING PFSH Anesthesia Medical History Allergy to iodine Anemia Anxiety, generalized Bladder cancer CAD (coronary artery disease) Chronic post-traumatic stress disorder (PTSD) COPD (chronic obstructive pulmonary disease) Hypertension Lumbar radiculopathy, chronic Metastatic urothelial carcinoma Pericardial effusion without cardiac tamponade Port-A-Cath in place Post herpetic neuralgia Pyelonephritis Urinary tract infection UTI (urinary tract infection) Vitamin D insufficiency Surgical History History of abdominoplasty History of bladder surgery History of breast augmentation Saline History of heart artery stent 2 stents September 2013 History of tubal ligation Family History Sister Diabetes Brother Diabetes Denies family history of Bleeding disorder Social History Smoking and tobacco/nicotine status: current every day tobacco/nicotine user cigarettes Packs smoked per day: 1 Years cigarettes smoked: 45 Second hand smoke exposure: Yes Alcohol intake: unknown Substance/Drug Use: unknown Adopted: No Caregiver/support person: No Lives independently: Yes Household members: spouse Marital status: Number of children: 5 service: No Do you think of yourself as: Straight/Heterosexual Current gender identity: Female Data Anesthesia 12/30/22 01:58 12/30/22 01:58 Short CBC 12/29/22 12/30/22 Range/Units 04:39 01:58 WBC 6.51 6.62 (3.29-11.43) 10^3/uL Hgb 7.50 L 7.50 L (11.27-16.99) g/dL Hct 24.2 L 23.7 L (36-47) % MCV 104.8 H 104.4 H (85-98) fl Plt Count 49 L 53 L (157-399) 10^3/cmm Neut % (Auto) 82.0 82.2 % Neut # (Auto) 5.34 5.45 (1.8-7.7) 10^3/uL BMP 12/29/22 12/30/22 04:39 01:58 Sodium 128 L 133 L Potassium 3.3 L 4.2 Chloride 96 L 101 Carbon Dioxide 27 28 BUN 15 15 Creatinine 0.8 0.7 Glucose 101 89 Calcium 7.8 L 8.0 L Cardiac Enzymes 12/28/22 Range/Units 03:15 Creatine Kinase 114 (26-192) U/L Liver Function 12/29/22 12/30/22 Range/Units 04:39 01:58 Total Bilirubin 0.8 0.9 (0.15-1.2) mg/dL AST 22 18 (0-32) U/L ALT 27 22 (0-33) U/L Alkaline Phosphatase 179 H 190 H (35-105) U/L Albumin 1.6 L 1.8 L (3.5-5.2) g/dL Coags 12/30/22 01:58 PT 15.90 H INR 1.23 H APTT 41.2 H Fibrinogen 611 H D-Dimer 16.76 H Microbiology 12/25/22 03:55 Blood Culture - Final Blood NO GROWTH AFTER 5 DAYS 12/25/22 03:55 Blood Culture - Final Blood NO GROWTH AFTER 5 DAYS Cardiac Studies: Echocardiogram 12/16/22 Echocardiogram Limited Views 06/11/22 Echocardiogram Ultrasound 02/17/20 Transesophageal Echocardiogram 12/18/22
[2022-12-30] MEDS: sodium chloride 0.9% 1,000 ML 30 ML (08:01)
[2022-12-30] MEDS: lidocaine-epi 2% PF 1:200,000 20 mL SDV 8 ML XX (08:48)
[2022-12-30] MEDS: heparin, porcine 1,000 unit/mL INJ 10 mL 10000 UNIT HE (09:00)
--- NOTE | 2022-12-30 09:12 | PM.OP ---
Operative Report Date of procedure: December 30, 2022 Pre-op diagnosis: Poor Venous access Post-op diagnosis: same Procedure done: Mediport placement Implants: PowerPort Specimens removed/disposition: None Surgeon: Burak Diez DO Anesthesia: MAC Estimated blood loss (mL): 5 Complications: None apparent Brief History: This a 62-year-old female who was found to have bacteremia and had her Mediport removed. She has poor venous access and replacement of Mediport is indicated. The risk and benefits were explained and documented. Procedure: The patient was taken to the operating room and placed supine on the operating room table. All bony prominences were padded. She was given IV sedation and monitored throughout the case by the anesthesia personnel. SCDs were placed and turned on. The arms were tucked to the side. Patient received Ancef 2 g preoperatively IV. The bilateral chest wall was prepped and draped in usual sterile fashion using chlorhexidine base prep. Sterile drapes were applied. We did procedure pause prior to beginning. An 18 gauge needle was placed in the right subclavian vein. Dark, nonpulsatile blood was aspirated. A guidewire was placed through the needle centrally toward the atrial/vena caval junction. Fluoroscopy visualized good placement. The needle was removed and the guidewire was clipped to the drape with a hemostat. Further local anesthetic was infiltrated in the soft tissues of the right chest wall and a #15 blade was used to make a horizontal skin incision. A subcutaneous Mediport pocket was created using Bovie cautery, dissecting down through the skin and subcutaneous tissues. Meticulous hemostasis was achieved. The Mediport was sutured in position using 3-0 vicryl suture x2 stitches. A #15 blade was used to make a small skin nsesa around the guidewire insertion area. The Mediport tubing was tunneled through the subcutaneous tissues up to the needle insertion location. A dilator with a peel-away sheath was placed over the guidewire and placed centrally. After measuring the Mediport tubing was cut to length so that the tip would end at the atrial/vena caval junction. The inner cannula and the guidewire were removed, leaving the dilator sheath in place. The Mediport was flushed. The tip of the catheter was inserted through the peel-away sheath and the peel-away sheath removed in the standard fashion. The Mediport was accessed with a straight Mi needle and dark, nonpulsatile blood was aspirated and flushed using heparinized saline to hep-lock the Mediport. Final fluoroscopy visualization showed no kink in the catheter and the tip of the Mediport tubing near the atrial/vena caval junction. Both skin incisions were thoroughly irrigated and suctioned dry. Meticulous hemostasis noted. The dermis was approximated with 3-0 Vicryl in an interrupted fashion. Skin was closed with Dermabond. The bent Mi needle was then put in place and a bandage was applied. Next the sutures were removed from the previous Mediport site on the left chest. Sterile bandage was applied. Patient was awakened from anesthesia and transferred via her cart to the recovery room in stable condition. All needle, sponge, and instrument counts were correct per the operating personnel x2 counts.
--- NOTE | 2022-12-30 09:40 | ANE.PACU2 ---
Inpatient post-anesthesia follow up: Airway intact: Yes Vital signs: Temperature 97 F Pulse Rate 97 Respiratory Rate 17 Blood Pressure 92/51 Pulse Oximetry 78 Oxygen Delivery Me thod Room Air Oxygen Flow Rate 2 Fraction of Inspir ed Oxygen 35 Hydration adequate: Yes Nausea and vomiting: No Pain level: 1 Mental status: Baseline
[2022-12-30 10:04] LABS: NT Pro B Type Natriuretic Pept 10477 pg/mL (0-125)
[2022-12-30] MEDS: magnesium sulfate premix 2 GM/50 ML PIGGYBACK IV (10:27)
--- NOTE | 2022-12-30 11:15 | PC.NURSE ---
See paper charting for 1:1 sitter documentation
[2022-12-30] MEDS: albumin 25 G/100 ML BAG 60 G IV ×2 (12:04→16:40)
[2022-12-30] MEDS: nystatin 100,000 unit/mL UDC 5 mL 100000 UNIT PO ×3 (13:59→20:41)
[2022-12-30] MEDS: benzonatate 100 mg Capsule PO ×2 (15:32→20:41)
[2022-12-30] MEDS: vancomycin 1,000 MG in sodium chloride 0.9% 250 ML 250 MG IV (15:36)
--- NOTE | 2022-12-30 17:00 | P.PN_ITS ---
Subjective Subjective: Hospital course, labs appreciated. Examination sitting comfortably in bed with sitter at bedside. Post port placement. Patient states she is feeling better than last time she saw me. Denies any nausea, vomiting, headache. States appetite is improving but still poor. Overall patient is around 8.9 L positive. Blood work today shows no leukocytosis, hemoglobin stable at 7.5 as yesterday, thrombocytopenia improving to 53,000, DIC panel stable but still elevated, elevated fibrinogen 04/22/2010, CMP showing sodium improving to 133, stable creatinine with hypomagnesemia of 1.6, persistent hypoalbuminemia of 1.8. Medications: Reviewed: Yes Vitals/I&O/Wt Last Vital Signs Temp 97 F L 12/30/22 09:20 Pulse 97 12/30/22 11:45 Resp 24 H 12/30/22 16:38 BP 92/51 12/30/22 11:30 Pulse Ox 78 L 12/30/22 11:45 O2 Del Method Room Air 12/30/22 09:36 O2 Flow Rate 2 12/30/22 08:02 FiO2 35 12/19/22 13:11 12/30/22 12/30/22 12/30/22 06:59 14:59 22:59 Intake Total 590 / 590 Output Total 425 / 1075 435 / 435 Balance -425 / -85 155 / 155 Weight last 48 hrs Weight 51.347 kg Weight 56.064 kg Physical Exam Narrative: General exam no distress, on 2 L of oxygen, conversant Neck is supple no lymphadenopathy thyromegaly Cardiovascular regular rate and rhythm, no murmur. Chest tube noted Lungs diminished breath sounds bilaterally. No wheezes or crackles Abdomen soft, bowel sounds are noted Extremities no extraordinary cyanosis clubbing or edema. Right upper extremity with cyanotic right hand especially side of thumb. Cap refill impaired., She has good movement, and I believe it is somewhat better than yesterday. Skin no rash Neuro: Follows all commands Urinary Catheter Management: Coffman: Cath Placed During This Visit: yes Reason for Continuing Indwelling Catheter: Acute Urinary Retention or Obstruction Urinary Catheter Date of Insertion: 12/16/22 Urinary Catheter Time of Insertion: 14:02 Data 12/30/22 01:58 12/30/22 01:58 Micro: Microbiology 12/25/22 03:55 Blood Culture - Final Blood NO GROWTH AFTER 5 DAYS 12/25/22 03:55 Blood Culture - Final Blood NO GROWTH AFTER 5 DAYS A&P Assessment and plan (1) MRSA (methicillin resistant Staphylococcus aureus) septicemia: (2) Sepsis: Patient presents to the hospital with sepsis, with concern for septic shock. Septic shock has so far resolved. Keep mean artery pressure 65. Blood cultures growing MRSA, urine culture growing E. coli and Proteus vulgaris. Source of infection most likely port which was removed on 12/18. Blood culture from 12/18 came back positive for MRSA. Repeat cultures from 12/25 and 12/27 so far negative. Appreciate ID recommendations. Patient had Port placement today. We will plan to discharge on vancomycin as per ID recommendation for overall 6 weeks most likely from 12/25. Follow-up Vanco trough levels. (3) Pericardial effusion: Post pericardiocentesis. Currently stable. Fluid studies consistent with malignant pericardial effusion. Prednisone has been weaned off. (4) Ischemia of right upper extremity: With developing mild gangrene. No signs of infection Most likely in setting of DIC along with arterial line and ABG. Currently stable. Pulses dopplerable. Hand warm to touch with persistent cyanosis of fingertips and nails. Continues to improve. Continue with physical therapy. (5) Thrombocytopenia: Unknown etiology. Currently improving gradually and stable. Could be secondary to DIC versus TTP versus HLH. Most likely in setting of recovering DIC. Monitor platelet count daily. D-dimer and DIC panel trending down. (6) INDRA (acute kidney injury): Most likely in setting of septic shock. Resolved. Strict input output charting, daily weights. Patient overall 8.9 L positive. Coffman catheter in place. DC Coffman. Medical reconciliation done for nephrotoxic drugs. No electrolyte abnormality. Monitor BMP daily. (7) Acute respiratory failure: Patient with acute respiratory failure during cardiac arrest. She is intubated and sedated. Able to be extubated successfully on 12/19. Currently on 2 L of oxygen supplementation. Maintain saturation over 90%. Continue with Pulmicort and albuterol. Incentive spirometry. Patient seems to be slightly fluid overload along with hypoalbuminemia. Start on IV albumin every 8 hourly along with protein shakes. IV Lasix 40 mg one-time. (8) Hemoptysis: Resolved. (9) Transaminitis: Resolved. Likely secondary to sepsis, elevation secondary to cardiac arrest. (10) Cardiac arrest: Status postcardiac arrest with induction. She required 2 minutes, 1 cycle, of CPR. She appears to be following direction and is likely neurologically intact. Continue to follow closely. 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 Last treatment around November 12 (15) Hyponatremia: Resolving. Continue to monitor daily. (16) Hyperkalemia: Resolved (17) UTI (urinary tract infection): Appreciate urine cultures. Antibiotics changed as above. (18) Hypotension: Patient initially hypotensive secondary to sepsis versus tamponade. This has resolved (19) Poor venous access: (20) Fluid overload: (21) Goals of care, counseling/discussion: (22) Protein-energy malnutrition: Plan Anemia: Most likely in setting of severe sepsis, DIC. No active signs of bleeding. Post overall 3 unit of blood transfusion during hospitalization. Check iron panel, reticulocyte count, vitamin B12 and folate levels. Keep hemoglobin more than 7. Will transfuse accordingly. Hemoglobin so far stable. Rash:? 2 circumscribed lesions on the left side of the forehead, with erythematous slightly raised borders,? mild scaling, she reports it is pruritic.? possible tinea capitis and corporis noted on forehead and abdomen.? Additionally has oropharyngeal candidiasis.? Immunocompromised with malignancy.? We will start topical terbinafine. Discussed with ID. Hold off on itraconazole. Hypomagnesemia:? ? Hypomagnesemia replaced.? Follow-up level. Lines: Port placement?12/30. Coffman in place. Analgesia: Oxycodone 10 mg twice daily, oxycodone IR 5 mg every 6 hours as needed. As per home regimen Glycemic control: Not needed. Nutrition: Cardiac diet along with Ensure protein shakes with each meal CODE STATUS: Discussed in detail with patient. will be the DPOA. She wants to remain full code. PUD prophylaxis: Protonix twice daily DVT prophylaxis: CDs, heparin 5000 every 12 hourly. Discharge planning: Patient would benefit from SNF placement though patient is declining and would want to be discharged home. Plan to discharge home with home health within next 24 hours if patient remains hemodynamically stable on IV antibiotics through port. Continue with care at CSU level This documentation was created by [employer] infection prevention coordinator software. Every effort was made to ensure accuracy of infection prevention coordinator. Any obvious errors or omissions should be clarified with the author of the document. Attestations Medical Necessity Statement*: Requires further hospitalization for resolving MRSA bacteremia in setting of port infection, cardiac tamponade which has resolved in setting of malignant pericardial effusion, severe protein energy malnutrition Diagnoses MRSA (methicillin resistant Staphylococcus aureus) septicemia A41.02 Sepsis A41.9 Pericardial effusion I31.39 Ischemia of right upper extremity I99.8 Thrombocytopenia D69.6 INDRA (acute kidney injury) N17.9 Acute respiratory failure J96.00 Hemoptysis R04.2 Transaminitis R74.01 Cardiac arrest I46.9 Pericardial effusion with cardiac tamponade I31.39; I31.4 Malignant pericardial effusion in disease classified elsewhere I31.31 Hypoalbuminemia E88.09 Metastatic urothelial carcinoma C79.10 Hyponatremia E87.1 Hyperkalemia E87.5 UTI (urinary tract infection) N39.0 Hypotension I95.9 Poor venous access I87.8 Fluid overload E87.70 Goals of care, counseling/discussion Z71.89 Protein-energy malnutrition E46
--- NOTE | 2022-12-30 18:10 | P.PN_ITS ---
Subjective Subjective: infectious disease progress note since last seen patient has had port replaced. platelets improving. blood cx now clear since 12/25 Medications: Reviewed: Yes Vitals/I&O/Wt Last Vital Signs Temp 97 F L 12/30/22 09:20 Pulse 95 12/30/22 16:30 Resp 24 H 12/30/22 16:38 BP 103/72 12/30/22 16:30 Pulse Ox 100 12/30/22 16:30 O2 Del Method Room Air 12/30/22 09:36 O2 Flow Rate 2 12/30/22 08:02 FiO2 35 12/19/22 13:11 12/30/22 12/30/22 12/30/22 06:59 14:59 22:59 Intake Total 590 / 590 Output Total 425 / 1075 435 / 435 Balance -425 / -85 155 / 155 Weight last 48 hrs Weight 51.347 kg Weight 56.064 kg Physical Exam Narrative: General: No acute distress, AO x3 HEENT: PERRLA, pupils bilaterally equal and reactive, pallors not present Chest: Normal vesicular breath sounds, no added sounds, equal good air entry bilaterally CVS: S1-S2 regular, no murmurs, no tachycardia, no gallops, no rubs Abdomen: Soft, nontender, no organomegaly, bowel sounds present Neuro: No focal deficits, no facial deformity, AO x3, power 5/5 in all limbs Extremities: right hand changes of pregangrene improved since last seen Urinary Catheter Management: Coffman: Cath Placed During This Visit: yes Reason for Continuing Indwelling Catheter: Acute Urinary Retention or Obstruction Urinary Catheter Date of Insertion: 12/16/22 Urinary Catheter Time of Insertion: 14:02 Data 01/02/23 03:45 01/02/23 12:44 Micro: Microbiology 12/25/22 03:55 Blood Culture - Final Blood NO GROWTH AFTER 5 DAYS 12/25/22 03:55 Blood Culture - Final Blood NO GROWTH AFTER 5 DAYS A&P Assessment and plan (1) Malignant pericardial effusion in disease classified elsewhere: (2) MRSA (methicillin resistant Staphylococcus aureus) septicemia: Patient with known bladder cancer status post transurethral resection of the bladder tumor in January 2022, thereafter found to have metastatic lymphadenopathy in chest retroperitoneum and pelvis and bony metastases as of most recent PET scan in 11/2022. Presenting to the hospital with sepsis, shock likely a combination of septic shock plus cardiogenic shock Blood cultures during course of admission positive for MRSA from December 16 and dec 18 2022 , likely from infected port s/p port removal on 12/18 Blood culture from December 25, 2022 thus far negative to date continue treatment with renally dosed IV vancomycin with traget trough of 15-20. Vancomycin to continue for MRSA bacteremia for total 6 weeks (12/25-02/05) s/p placement of port again today FRANCIS negative for endocarditis (3) UTI (urinary tract infection): Previously patient noted to have moderate right hydronephrosis and also mild left hydroureter, however on the most recent CT KUB on December 16, 2022, there is no evidence of hydronephrosis in either kidney. Urine cx with E.coli and Proteus vulgaris both isolates s/t cipro S/p meropenem ----> Ciprofloxacin, completed course (4) Pericardial effusion with cardiac tamponade: malignant per biopsy (5) Leukocytosis: improved (6) Acute respiratory failure: management per primary (7) Cardiac arrest: Likely related to pericardial tamponade Plan stable to discharge from ID standpoint. overall poor prognosis given underlying malignancy and significant deconditioning. Attestations Medical Necessity Statement*: per admitting Coding Level of Care Code Acute Code for [facility] Diagnoses Malignant pericardial effusion in disease classified elsewhere I31.31 MRSA (methicillin resistant Staphylococcus aureus) septicemia A41.02 UTI (urinary tract infection) N39.0 Pericardial effusion with cardiac tamponade I31.39; I31.4 Leukocytosis D72.829 Acute respiratory failure J96.00 Cardiac arrest I46.9
[2022-12-30] MEDS: guaiFENesin 600 mg Tablet PO (18:30)
[2022-12-30] MEDS: pantoprazole DR 40 mg Tablet PO (18:30)
[2022-12-30] MEDS: FUROsemide 10 mg/mL SDV 4mL 40 MG IVP (18:30)
[2022-12-30] MEDS: oxyCODONE 10 mg ER (12 HR) Tablet PO (18:30)
--- NOTE | 2022-12-30 19:45 | PC.NURSE ---
Patient refuses to use bedpan or comode. Patient educated on the issue of moisture against skin in the sacral area with open sores present. Patient still refuses to use bed meehan or comode. Patient states that she would rather have diaper or urinate on protective pads. Pressure ulcers on sacral area covered with optifoam 4x4 dressing.
[2022-12-30] MEDS: terbinafine 1% Cream 15 gm 1 APPLIC TOPICAL (20:39)
--- NOTE | 2022-12-30 23:12 | PC.NURSE ---
Patient refusing bedpan and commode stating she cannot use bedpan or bedside commode, asking for urinary catheter to be placed. Patient has decubitis ulcer on sacral area and skin maceration. Patient was continuously moist. Patient was educated on the importance of keeping sacral area clean and dry due to ulcer and the use of bedpan. Dr. Duenas was notified and gave verbal order for urinary catheter to be placed due to patients non healing decubitis ulcer and skin maceration. Order placed and covarrubias was placed in patient at 21:13 using sterile technique.
--- NOTE | 2022-12-30 23:37 | PC.NURSE ---
Patient stating that she needs repositioned in bed, refuses to turn on either side. Patient lifted up on bed, pillows placed under hips and under arms. Patient resting in bed with eyes closed, call light in reach.
[2022-12-31] VITALS (25 sets, daily range): BP systolic 90–185; BP diastolic 56–107; PULSE 79–115; RESP 12–30; TEMP 36.6–37.4; O2SAT 90–100; BMI 21.4
[2022-12-31] MEDS: albumin 25 G/100 ML BAG 60 G IV ×2 (00:30→19:47)
[2022-12-31] MEDS: oxyCODONE 5 mg IR Tab/Cap PO ×5 (00:30→20:33)
[2022-12-31] MEDS: LORazepam 0.5 mg Tablet PO ×3 (00:31→20:34)
--- NOTE | 2022-12-31 00:59 | PC.NURSE ---
Patient was lifted with draw sheet and pillows placed under both hips and both arms. patient resting in bed with eyes closed and call light in reach.
[2022-12-31] MEDS: heparin 5,000 unit/mL INJ 1 mL 5000 UNIT SUBCUT ×2 (03:13→14:46)
--- NOTE | 2022-12-31 04:17 | PC.NURSE ---
Patient was scooted up in bed, draw sheet and pad was replaced and repositioned. Pillows placed under hips and arms bilaterally. Patient resting in bed with call light in reach.
[2022-12-31] MEDS: ondansetron 2 mg/ML SDV 2 mL 4 MG IVP ×2 (04:53→20:33)
[2022-12-31 05:05] LABS: Basophils % 0.3 %; Eosinophils # 0.1 10^3/uL (0.0-0.8); Eosinophils % 1.4 %; Lymphocytes # 0.4 10^3/uL (0.8-4.8); Lymphocytes % 11.4 %; Mean Corpuscular HGB Conc 31.3 g/dL (30-55); Mean Corpuscular Hemoglobin 33.1 pg (27-33); Mean Corpuscular Volume 106.1 fl (85-98); Mean Platelet Volume 11.7 fL (7.4-10.4); Monocytes # 0.4 10^3/uL (0.2-0.9); Monocytes % 10.3 %; Neutrophils # 2.75 10^3/uL (1.8-7.7); Neutrophils % 76.3 %; Nucleated Red Blood Cells % 0 %; Platelet Count 43 10^3/cmm (157-399); Red Blood Count 1.81 10^6/uL (3.85-5.65); Red Cell Distribution Width 19.8 % (12.1-15.1)
[2022-12-31 05:14] LABS: Hematocrit 19.2 % (36-47)
[2022-12-31 05:31] LABS: Alanine Aminotransferase 13 U/L (0-33); Albumin Level 2.9 g/dL (3.5-5.2); Alkaline Phosphatase 136 U/L (35-105); Anion Gap 12.2 (5-19); Aspartate Amino Transferase 12 U/L (0-32); Blood Urea Nitrogen 12 mg/dL (8-23); Calcium 8.2 mg/dL (8.5-10.5); Carbon Dioxide 28 mmol/L (22-29); Chloride 99 mmol/L (98-107); Globulin 1.9 g/dL (1.3-4.6); Glomerular Filtration Rate 72.9 mL/min (90-130); Glucose 118 mg/dL (65-115); Osmolality Calculated 283 mOsm/kg (285-295); Potassium 3.2 mmol/L (3.5-5.1); Sodium 136 mmol/L (136-145); Total Bilirubin 1.2 mg/dL (0.15-1.2); Total Protein 4.8 g/dL (6.6-8.7)
--- NOTE | 2022-12-31 06:52 | PC.NURSE ---
Critical lab: Hgb 6, Hct 19.2. Dr Duenas notified, order put in for 1 unit PRBC. Type and screen , new one ordered and collected.
[2022-12-31] MEDS: pantoprazole DR 40 mg Tablet PO ×2 (08:38→18:20)
[2022-12-31] MEDS: guaiFENesin 600 mg Tablet PO ×2 (08:38→18:20)
[2022-12-31] MEDS: docusate sodium 100 mg Capsule PO ×2 (08:38→18:20)
[2022-12-31] MEDS: benzonatate 100 mg Capsule PO ×3 (08:38→20:34)
[2022-12-31] MEDS: sennosides-docusate Tablet 1 TAB PO ×2 (08:38→19:41)
[2022-12-31] MEDS: oxyCODONE 10 mg ER (12 HR) Tablet PO ×2 (08:39→18:18)
[2022-12-31] MEDS: nystatin 100,000 unit/mL UDC 5 mL 100000 UNIT PO ×4 (08:40→20:33)
[2022-12-31] MEDS: albumin 25 G/100 ML BAG 100 G IV (08:41)
[2022-12-31 09:08] LABS: Cortisol Random 13.74 ug/dL (2.47-19.5)
[2022-12-31] MEDS: vancomycin 1,000 MG in sodium chloride 0.9% 250 ML 250 MG IV (10:04)
[2022-12-31 10:48] LABS: Eosinophils 1 %; Lymphocytes 9 %; Segmented Neutrophils 77 %; Total Cells Counted 100 (0-100)
[2022-12-31 10:50] LABS: Anisocytosis 1+; Platelet Estimate Decreased (Normal)
[2022-12-31] MEDS: FUROsemide 10 mg/mL SDV 4mL 40 MG IVP ×2 (14:04→19:39)
[2022-12-31] MEDS: sodium chloride 0.9% (100 ml) 100 ML 50 ML (14:05)
--- NOTE | 2022-12-31 16:19 | PC.NURSE ---
Physician verbal order to infuse 2 units of PRBC and give IVP lasix in between transfusion.
[2022-12-31] MEDS: sodium chloride 0.9% (100 ml) 100 ML (16:35)
[2022-12-31 16:49] LABS: Adenovirus Not Detected (NOT DETECT); Chlamydia Pneumoniae Not Detected (NOT DETECT); Coronavirus 229E,HKU1,NL63,OC4 Not Detected (NOT DETECT); Human Metapneumovirus Not Detected (NOT DETECT); Human Rhinovirus/Enterovirus Not Detected (NOT DETECT); Influenza A Not Detected (NOT DETECT); Influenza A H1 Not Detected (NOT DETECT); Influenza A H1-2009 Not Detected (NOT DETECT); Influenza A H3 Not Detected (NOT DETECT); Influenza B Not Detected (NOT DETECT); Mycoplasma Pneumoniae Not Detected (NOT DETECT); Parainfluenza Virus Type 1 Not Detected (NOT DETECT); Parainfluenza Virus Type 2 Not Detected (NOT DETECT); Parainfluenza Virus Type 3 Not Detected (NOT DETECT); Parainfluenza Virus Type 4 Not Detected (NOT DETECT); Respiratory Syncytial Virus A Not Detected (NOT DETECT); Respiratory Syncytial Virus B Not Detected (NOT DETECT); SARS-COV-2 Not Detected (NOT DETECT)
--- NOTE | 2022-12-31 16:57 | P.PN_ITS ---
Subjective Subjective: No acute events overnight. Patient has remained hemodynamically stable and afebrile. Today morning examination she states she is feels sore and tired. Having her breakfast. Denies any bleeding. Discussed with her about sitting up in chair. She is agreeable. Continues to remain on 2 L of oxygen maintaining saturation over 90%. Coffman catheter was removed last evening but was placed back because of increased urine output Urine output in last 24 hours documented to be around 2 L in last 24 hours. Blood work appreciated CBC showing drop in hemoglobin to 6, platelet count at 43,000, atypical lymphocyte of 10%, CMP showing potassium down to 3.2, stable creatinine of 0.8, albumin improving to 2.9 Medications: Reviewed: Yes Vitals/I&O/Wt Last Vital Signs Temp 99.1 F 12/31/22 16:45 Pulse 114 H 12/31/22 16:45 Resp 26 H 12/31/22 16:45 BP 118/90 12/31/22 16:45 Pulse Ox 92 12/31/22 16:45 O2 Del Method Nasal Cannula 12/31/22 13:20 O2 Flow Rate 3 12/31/22 07:36 FiO2 35 12/19/22 13:11 12/31/22 12/31/22 12/31/22 06:59 14:59 22:59 Intake Total 100 / 1480 922 / 922 100 / 1022 Output Total 1050 / 2040 1550 / 1550 Balance -950 / -560 922 / 922 -1450 / -528 Weight last 48 hrs Weight 51.347 kg Weight 51.347 kg Physical Exam Narrative: General exam no distress, on 2 L of oxygen, conversant, chronically sick appearing, tired Neck is supple no lymphadenopathy thyromegaly Cardiovascular regular rate and rhythm, no murmur. Chest tube noted Lungs diminished breath sounds bilaterally. No wheezes or crackles Abdomen soft, bowel sounds are noted Extremities no extraordinary cyanosis clubbing or edema. Right upper extremity with cyanotic right hand especially side of thumb. Cap refill impaired., She has good movement, and I believe it is somewhat better than yesterday. Skin no rash Neuro: Follows all commands Urinary Catheter Management: Coffman: Cath Placed During This Visit: yes Reason for Continuing Indwelling Catheter: Assist healing open wound Urinary Catheter Date of Insertion: 12/30/22 Urinary Catheter Time of Insertion: 21:13 Data 12/31/22 04:34 12/31/22 04:34 Micro: Microbiology 12/30/22 02:22 Catheter Tip Culture - Preliminary Central Line 12/31/22 08:24 Blood Culture - Preliminary Blood SPECIMEN COLLECTED 12/31/22 09:19 Blood Culture - Preliminary Blood SPECIMEN COLLECTED A&P Assessment and plan (1) MRSA (methicillin resistant Staphylococcus aureus) septicemia: (2) Sepsis: Patient presents to the hospital with sepsis, with concern for septic shock. Septic shock has so far resolved. Keep mean artery pressure 65. Blood cultures growing MRSA, urine culture growing E. coli and Proteus vulgaris. Source of infection most likely port which was removed on 12/18. Blood culture from 12/18 came back positive for MRSA. Repeat cultures from 12/25 and 12/27 so far negative. Appreciate ID recommendations. Patient had Port placement today. We will plan to discharge on vancomycin as per ID recommendation for overall 6 weeks most likely from 12/25. Follow-up Vanco trough levels. (3) Pericardial effusion: Post pericardiocentesis. Currently stable. Fluid studies consistent with malignant pericardial effusion. Prednisone has been weaned off. (4) Ischemia of right upper extremity: With developing mild gangrene. No signs of infection Most likely in setting of DIC along with arterial line and ABG. Currently st able. Pulses dopplerable. Hand warm to touch with persistent cyanosis of fingertips and nails. Continues to improve. Continue with physical therapy. (5) Thrombocytopenia: Unknown etiology. Currently improving gradually and stable. Could be secondary to DIC versus TTP versus HLH. Most likely in setting of recovering DIC. Monitor platelet count daily. D-dimer and DIC panel trending down. (6) INDRA (acute kidney injury): Most likely in setting of septic shock. Resolved. Strict input output charting, daily weights. Patient overall 8.9 L positive. Coffman catheter in place. DC Coffman. Medical reconciliation done for nephrotoxic drugs. No electrolyte abnormality. Monitor BMP daily. (7) Acute respiratory failure: Patient with acute respiratory failure during cardiac arrest. She is intubated and sedated. Able to be extubated successfully on 12/19. Currently on 2 L of oxygen supplementation. Maintain saturation over 90%. Continue with Pulmicort and albuterol. Incentive spirometry. Patient seems to be slightly fluid overload along with hypoalbuminemia. Start on IV albumin every 8 hourly along with protein shakes. IV Lasix 40 mg one-time. (8) Hemoptysis: Resolved. (9) Transaminitis: Resolved. Likely secondary to sepsis, elevation secondary to cardiac arrest. (10) Cardiac arrest: Status postcardiac arrest with induction. She required 2 minutes, 1 cycle, of CPR. She appears to be following direction and is likely neurologically intact. Continue to follow closely. 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 Last treatment around November 12 (15) Hyponatremia: Resolving. Continue to monitor daily. (16) Hyperkalemia: Resolved (17) UTI (urinary tract infection): Appreciate urine cultures. Antibiotics changed as above. (18) Hypotension: Patient initially hypotensive secondary to sepsis versus tamponade. This has resolved (19) Poor venous access: (20) Fluid overload: (21) Goals of care, counseling/discussion: (22) Protein-energy malnutrition: Plan Anemia: Most likely in setting of severe sepsis, DIC. No active signs of bleeding. Post overall 3 unit of blood transfusion during hospitalization. Check iron panel, reticulocyte count, vitamin B12 and folate levels. Keep hemoglobin more than 7. Will transfuse accordingly. Hemoglobin so far stable. Rash:? 2 circumscribed lesions on the left side of the forehead, with erythematous slightly raised borders,? mild scaling, she reports it is pruritic.? possible tinea capitis and corporis noted on forehead and abdomen.? Additionally has oropharyngeal candidiasis.? Immunocompromised with malignancy.? We will start topical terbinafine. Discussed with ID. Hold off on itraconazole. Hypomagnesemia:? ? Hypomagnesemia replaced.? Follow-up level. Lines: Port placement?12/30. Coffman placed back on 12/30. Analgesia: Oxycodone 10 mg twice daily, oxycodone IR 5 mg every 6 hours as needed. As per home regimen Glycemic control: Not needed. Nutrition: Cardiac diet along with Ensure protein shakes with each meal CODE STATUS: Discussed in detail with patient. will be the DPOA. She wants to remain full code. PUD prophylaxis: Protonix twice daily DVT prophylaxis: CDs, heparin 5000 every 12 hourly. Discharge planning: Patient would benefit from SNF placement though patient is declining and would want to be discharged home. Plan to discharge home with home health within next 24 hours if patient remains hemodynamically stable on IV antibiotics through port. Continue with care at CSU level Plan for the day: Continue with IV vancomycin. Follow-up trough levels. Repeat blood cultures from 12/25 negative, 12/27 negative but not finalized. Repeat blood cultures today to confirm for no fungemia given skin rash. Switch diet as per dietitian. Transfused 2 unit of PRBC. IV Lasix 40 mg in between and after transfusion. Repeat hemoglobin. Replete 80 mg of oral potassium No active source of bleeding. IV metoprolol 5 mg one-time followed by 25 mg oral twice daily. Check respiratory viral panel. Given development of tachycardia, mild difficulty in breathing again will repeat limited echocardiogram to rule out recollection of pericardial effusion though unlikely. This documentation was created by [employer] diesel retrofit designer software. Every effort was made to ensure accuracy of diesel retrofit designer. Any obvious errors or omissions should be clarified with the author of the document. Attestations Medical Necessity Statement*: Requires further hospitalization for management of severe anemia requiring transfusion, MRSA bacteremia in a patient with malignant pericardial tamponade, protein energy malnutrition while safe discharge planning is sought Diagnoses MRSA (methicillin resistant Staphylococcus aureus) septicemia A41.02 Sepsis A41.9 Pericardial effusion I31.39 Ischemia of right upper extremity I99.8 Thrombocytopenia D69.6 INDRA (acute kidney injury) N17.9 Acute respiratory failure J96.00 Hemoptysis R04.2 Transaminitis R74.01 Cardiac arrest I46.9 Pericardial effusion with cardiac tamponade I31.39; I31.4 Malignant pericardial effusion in disease classified elsewhere I31.31 Hypoalbuminemia E88.09 Metastatic urothelial carcinoma C79.10 Hyponatremia E87.1 Hyperkalemia E87.5 UTI (urinary tract infection) N39.0 Hypotension I95.9 Poor venous access I87.8 Fluid overload E87.70 Goals of care, counseling/discussion Z71.89 Protein-energy malnutrition E46
[2022-12-31] MEDS: potassium chloride ER 20 mEq Tablet 80 MEQ PO (18:20)
[2022-12-31] MEDS: metoprolol tartrate 1 mg/1 mL SDV 5 mL 5 MG IVP (18:21)
[2022-12-31] MEDS: metoprolol tartrate 25 mg Tablet PO (20:34)
[2022-12-31 21:02] LABS: Hematocrit 29.5 % (36-47)
[2023-01-01] VITALS (22 sets, daily range): BP systolic 101–151; BP diastolic 54–92; PULSE 69–150; RESP 16–29; TEMP 36.8–37.1; O2SAT 91–95; BMI 21.9
[2023-01-01] MEDS: heparin 5,000 unit/mL INJ 1 mL 5000 UNIT SUBCUT ×2 (02:13→15:05)
[2023-01-01 02:49] LABS: Basophils % 0.3 %; Eosinophils % 0.5 %; Hematocrit 32.1 % (36-47); Lymphocytes # 0.7 10^3/uL (0.8-4.8); Lymphocytes % 11.5 %; Mean Corpuscular HGB Conc 32.7 g/dL (30-55); Mean Corpuscular Hemoglobin 30.3 pg (27-33); Mean Corpuscular Volume 92.8 fl (85-98); Mean Platelet Volume 11.7 fL (7.4-10.4); Monocytes # 0.6 10^3/uL (0.2-0.9); Monocytes % 10.1 %; Neutrophils # 4.51 10^3/uL (1.8-7.7); Neutrophils % 77.1 %; Nucleated Red Blood Cells % 0 %; Platelet Count 46 10^3/cmm (157-399); Red Blood Count 3.46 10^6/uL (3.85-5.65); Red Cell Distribution Width 23.9 % (12.1-15.1); White Blood Count 5.85 10^3/uL (3.29-11.43)
[2023-01-01 03:13] LABS: Alanine Aminotransferase 12 U/L (0-33); Albumin Level 3.5 g/dL (3.5-5.2); Alkaline Phosphatase 147 U/L (35-105); Aspartate Amino Transferase 16 U/L (0-32); Blood Urea Nitrogen 15 mg/dL (8-23); Calcium 8.9 mg/dL (8.5-10.5); Carbon Dioxide 30 mmol/L (22-29); Chloride 96 mmol/L (98-107); Globulin 2.3 g/dL (1.3-4.6); Glomerular Filtration Rate 63.7 mL/min (90-130); Glucose 98 mg/dL (65-115); Osmolality Calculated 283 mOsm/kg (285-295); Sodium 136 mmol/L (136-145); Total Bilirubin 2.8 mg/dL (0.15-1.2); Total Protein 5.8 g/dL (6.6-8.7)
[2023-01-01 03:17] LABS: Anion Gap 13.4 (5-19); Potassium 3.4 mmol/L (3.5-5.1)
[2023-01-01 03:18] LABS: Vancomycin Trough 27.9 ug/mL (10-15)
--- NOTE | 2023-01-01 03:26 | PC.PHAR ---
Vanc trough: 27.9 Plan: Trough taken after the 4th dose had been started. Will schedule new trough and reassess.
--- NOTE | 2023-01-01 03:28 | PC.NURSE ---
Vancomycin was started @ 0230, was running 3-5 minutes, lab came to draw vanc trough. vanc trough was critically high, pharmacy put vancomycin on hold until vanc trough draw in AM.
[2023-01-01] MEDS: albumin 25 G/100 ML BAG 60 G IV (04:22)
[2023-01-01] MEDS: oxyCODONE 5 mg IR Tab/Cap PO ×3 (05:25→20:32)
--- NOTE | 2023-01-01 09:45 | PC.NURSE ---
Referred to patient for help with freshly placed port. Bedside nurse states port doesn't seem to have good blood return for lab draws. Dr. Diez, surgeon, notified. Original port needle de-accessed and new 19 gauge 1 inch port needle placed with dressing change. Good blood return noted. Flushes without difficulty. Biopatch placed around needle insertion site and covered with Sorbaview. Pt tolerated fair.
[2023-01-01] MEDS: oxyCODONE 10 mg ER (12 HR) Tablet PO ×2 (09:53→17:44)
[2023-01-01] MEDS: LORazepam 0.5 mg Tablet PO ×2 (09:54→20:32)
[2023-01-01] MEDS: docusate sodium 100 mg Capsule PO ×2 (09:54→17:44)
[2023-01-01] MEDS: pantoprazole DR 40 mg Tablet PO ×2 (09:54→17:43)
[2023-01-01] MEDS: metoprolol tartrate 25 mg Tablet PO (09:55)
[2023-01-01] MEDS: potassium chloride ER 20 mEq Tablet 40 MEQ PO (09:55)
[2023-01-01] MEDS: sennosides-docusate Tablet 1 TAB PO ×2 (09:55→17:43)
[2023-01-01] MEDS: guaiFENesin 600 mg Tablet PO ×2 (09:55→17:44)
[2023-01-01] MEDS: benzonatate 100 mg Capsule PO ×2 (10:00→20:30)
[2023-01-01] MEDS: nystatin 100,000 unit/mL UDC 5 mL 100000 UNIT PO ×3 (10:12→20:34)
[2023-01-01] MEDS: fluticasone nasal spray 16gm Btl 2 SPRAY NASAL (10:13)
--- NOTE | 2023-01-01 10:32 | PC.NURSE ---
Pt stated, I just need to be left alone. Pt reminded her call light if needs us.
--- NOTE | 2023-01-01 10:52 | ECG_ITS ---
[facility] Test Date: 2023-01-01 Pat Name: Skye Ambrose Department: Room: 105 Gender: Female [employer]ing [employer] Tender: : 1960 Requested By: Cesar Jiménez Order Number: [id number] Reading MD: Neelam Salas M.D. Measurements Intervals Ranger Rate: 145 P: 0 CO: 0 QRS: 37 QRSD: 86 T: 60 QT: 283 QTc: 440 Interpretive Statements Atrial fibrillation WITH RAPID VENTRICULAR RESPONSE WITH ABERRANT CONDUCTION OR VENTRICULAR PREMATURE COMPLEXES ST DEVIATION AND MODERATE T-WAVE ABNORMALITY, CONSIDER LATERAL ISCHEMIA [-0.1+ mV T-WAVE IN I/aVL/V5/V6] Compared to ECG 12/16/2022 09:59:28 Ventricular premature complex(es) now present Aberrant conduction of supraventricular beat(s) now present T-wave abnormality now present Possible ischemia now present Sinus tachycardia no longer present Myocardial infarct finding no longer present Electronically Signed On 01-01-2023 19:36:08 CDT by Neelam Salas M.D. [id number]
[2023-01-01] MEDS: metoprolol tartrate 1 mg/1 mL SDV 5 mL 5 MG IVP (11:32)
[2023-01-01] MEDS: FUROsemide 40 mg Tablet PO (11:32)
--- NOTE | 2023-01-01 12:09 | CTR_ITS ---
PROCEDURE INFORMATION: Exam: CT Chest Without Contrast; Diagnostic Exam date and time: 01/01/2023 3:43 PM Age: 62 years old Clinical indication: Other: Possible mets vs consolidation. Patient with metastatic bladder cancer TECHNIQUE: Imaging protocol: Diagnostic computed tomography of the chest without contrast. Radiation optimization: All CT scans at this facility use at least one of these dose optimization techniques: automated exposure control; mA and/or kV adjustment per patient size (includes targeted exams where dose is matched to clinical indication); or iterative reconstruction. REPORTING DATA: Count of CT and Cardiac NM exams in prior 12 months: This patient has received 7 known CTs and 0 known cardiac nuclear medicine studies in the 12 months prior to the current study. COMPARISON: [facility] SUBSEQ [id number] 11/30/2022 10:54 AM RADIATION DOSE METRICS: Total DLP (mGy-cm): 218 FINDINGS: Tubes, catheters and devices: There is a right-sided chest port whose tip terminates at the cavoatrial junction. There is a 3 cm circumscribed rounded soft tissue densities within the right upper chest wall just below the chest port not evident previously that is presumed iatrogenic in nature and should be correlated with history.. Lungs: There are moderate-sized bilateral pleural effusions that have developed possibly cardiogenic in nature with adjacent compressive atelectasis of the lower lung zones. There are some small indistinct peribronchial opacities within the mid lung zones likely inflammatory in nature secondary to ongoing airway disease. Pleural spaces: See Lungs finding. Heart: Heart is borderline enlarged. There is a moderate size pericardial effusion that may have slightly increased in size from previous exam. No significant coronary artery calcifications Lymph nodes: Unremarkable. No enlarged lymph nodes. Vasculature: Unremarkable. No aortic aneurysm. Bones/joints: Unremarkable. No acute fracture. Soft tissues: There is generalized anasarca within the soft tissues of the lower chest wall that has developed presumed secondary to volume overload. There are bilateral augmentation breast implants unchanged. CT/CT chest wo con [id number] IMPRESSION: 1. Borderline cardiomegaly with moderate-sized pericardial effusion slightly increased in size from previous exam. 2. Moderate-sized bilateral pleural effusions with adjacent compressive atelectasis and generalized anasarca in the soft tissues that may be secondary to CHF/volume overload. 3. Scattered small peribronchial opacities likely inflammatory in nature. 4. 3 cm circumscribed chest wall mass situated just below the right chest port developed from prior study in presumed iatrogenic in nature.
--- NOTE | 2023-01-01 12:40 | PC.OT ---
HOLD TODAY DUE TO ELEVATED HR
--- NOTE | 2023-01-01 12:59 | PC.NURSE ---
pt refused Enema she said, suppository and enema does not work. she would like miralax. dr notified.
--- NOTE | 2023-01-01 14:11 | PC.NURSE ---
Addendum entered by Ivet Layton RN 01/01/23 14:13: Notified Dr Martin. Orders for Amiodarone drip and bolus are delivered by pharmacy but are on hold due to pt's HR and rhythm are back w/ in normal. Notified Dr Martin on this meds have not given yet. Original Note: Pt hr is back to sinus rhythm/sinus tachy w/ rate on upper 80s to 90s. her is at bedside and showed nurse that pt sat up on the edge of the bed. patient then told me to step out and come back in 25 mins.
[2023-01-01] MEDS: polyethylene glycol 3350 Pkt 17 gm PO ×2 (15:05→20:36)
[2023-01-01] MEDS: vancomycin 1,000 MG in sodium chloride 0.9% 250 ML 250 MG IV (15:06)
--- NOTE | 2023-01-01 15:29 | PC.NURSE ---
pt taken to ct scan ushered via bed.
--- NOTE | 2023-01-01 15:52 | PM.PN ---
Subjective Subjective: No acute events overnight. Patient did have episode of shortness of breath yesterday for which she required IV Lasix after which the shortness of breath improved. Denies any new complaints. Denies any nausea, vomiting, headache. Blood work shows hemoglobin improvement to 10.5, platelet count stable at 46, CMP showing potassium of 3.4, stable creatinine, bilirubin of 2.8. Today patient developed atrial flutter with rapid ventricular response for couple of hours which settled by itself to normal sinus rhythm. Patient was given IV metoprolol 5 mg push along with oxycodone at home dose. Medications: Reviewed: Yes Vitals/I&O/Wt Last Vital Signs Temp 98.3 F 01/01/23 11:37 Pulse 89 01/01/23 14:30 Resp 22 H 01/01/23 12:00 BP 115/66 01/01/23 12:00 Pulse Ox 94 01/01/23 12:00 O2 Del Method Nasal Cannula 01/01/23 13:53 O2 Flow Rate 2 01/01/23 13:53 FiO2 35 12/19/22 13:11 01/01/23 01/01/23 01/01/23 06:59 14:59 22:59 Intake Total 480 / 1952 336 / 336 0 / 336 Output Total 1400 / 4150 850 / 850 Balance -920 / -2198 -514 / -514 0 / -514 Weight last 48 hrs Weight 52.73 kg Weight 51.347 kg Physical Exam Narrative: General exam no distress, on 2 L of oxygen, conversant, chronically sick appearing, tired Neck is supple no lymphadenopathy thyromegaly Cardiovascular regular rate and rhythm, no murmur. Chest tube noted Lungs diminished breath sounds bilaterally. No wheezes or crackles Abdomen soft, bowel sounds are noted Extremities no extraordinary cyanosis clubbing or edema. Right upper extremity with cyanotic right hand especially side of thumb. Cap refill impaired., She has good movement, and I believe it is somewhat better than yesterday. Skin no rash Neuro: Follows all commands Urinary Catheter Management: Coffman: Cath Placed During This Visit: yes Reason for Continuing Indwelling Catheter: Assist healing open wound Urinary Catheter Date of Insertion: 12/30/22 Urinary Catheter Time of Insertion: 21:13 Data 01/01/23 02:38 01/01/23 02:38 Micro: Microbiology 12/27/22 15:00 Blood Culture - Final Blood NO GROWTH AFTER 5 DAYS 12/30/22 02:22 Catheter Tip Culture - Final Central Line 12/31/22 08:24 Blood Culture - Preliminary Blood NEGATIVE TO DATE 12/31/22 09:19 Blood Culture - Preliminary Blood NEGATIVE TO DATE A&P Assessment and plan (1) MRSA (methicillin resistant Staphylococcus aureus) septicemia: (2) Sepsis: Patient presents to the hospital with sepsis, with concern for septic shock. Septic shock has so far resolved. Keep mean artery pressure 65. Blood cultures growing MRSA, urine culture growing E. coli and Proteus vulgaris. Source of infection most likely port which was removed on 12/18. Blood culture from 12/18 came back positive for MRSA. Repeat cultures from 12/25 and 12/27 so far negative. Appreciate ID recommendations. Patient had Port placement today. We will plan to discharge on vancomycin as per ID recommendation for overall 6 weeks most likely from 12/25. Follow-up Vanco trough levels. (3) Pericardial effusion: Post pericardiocentesis. Currently stable. Fluid studies consistent with malignant pericardial effusion. Prednisone has been weaned off. (4) Ischemia of right upper extremity: With developing mild gangrene. No signs of infection Most likely in setting of DIC along with arterial line and ABG. Currently stable. Pulses dopplerable. Hand warm to touch with persistent cyanosis of fingertips and nails. Continues to improve. Continue with physical therapy. (5) Thrombocytopenia: Unknown etiology. Currently improving gradually and stable. Could be secondary to DIC versus TTP versus HLH. Most likely in setting of recovering DIC. Monitor platelet count daily. D-dimer and DIC panel trending down. (6) INDRA (acute kidney injury): Most likely in setting of septic shock. Resolved. Strict input output charting, daily weights. Patient overall 8.9 L positive. Coffman catheter in place. DC Coffman. Medical reconciliation done for nephrotoxic drugs. No electrolyte abnormality. Monitor BMP daily. (7) Acute respiratory failure: Patient with acute respiratory failure during cardiac arrest. She is intubated and sedated. Able to be extubated successfully on 12/19. Currently on 2 L of oxygen supplementation. Maintain saturation over 90%. Continue with Pulmicort and albuterol. Incentive spirometry. Patient seems to be slightly fluid overload along with hypoalbuminemia. Start on IV albumin every 8 hourly along with protein shakes. IV Lasix 40 mg one-time. (8) Hemoptysis: Resolved. (9) Transaminitis: Resolved. Likely secondary to sepsis, elevation secondary to cardiac arrest. (10) Cardiac arrest: Status postcardiac arrest with induction. She required 2 minutes, 1 cycle, of CPR. She appears to be following direction and is likely neurologically intact. Continue to follow closely. 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 Last treatment around November 12 (15) Hyponatremia: Resolving. Continue to monitor daily. (16) Hyperkalemia: Resolved (17) UTI (urinary tract infection): Appreciate urine cultures. Antibiotics changed as above. (18) Hypotension: Patient initially hypotensive secondary to sepsis versus tamponade. This has resolved (19) Poor venous access: (20) Fluid overload: (21) Goals of care, counseling/discussion: (22) Protein-energy malnutrition: (23) Atrial fibrillation and flutter: Plan Anemia: Most likely in setting of severe sepsis, DIC. No active signs of bleeding. Post overall 3 unit of blood transfusion during hospitalization. Check iron panel, reticulocyte count, vitamin B12 and folate levels. Keep hemoglobin more than 7. Will transfuse accordingly. Hemoglobin so far stable. Rash:? 2 circumscribed lesions on the left side of the forehead, with erythematous slightly raised borders,? mild scaling, she reports it is pruritic.? possible tinea capitis and corporis noted on forehead and abdomen.? Additionally has oropharyngeal candidiasis.? Immunocompromised with malignancy.? We will start topical terbinafine. Discussed with ID. Hold off on itraconazole. Hypomagnesemia:? ? Hypomagnesemia replaced.? Follow-up level. Lines: Port placement?12/30. Coffman placed back on 12/30. Analgesia: Oxycodone 10 mg twice daily, oxycodone IR 5 mg every 6 hours as needed. As per home regimen Glycemic control: Not needed. Nutrition: Cardiac diet along with Ensure protein shakes with each meal CODE STATUS: Discussed in detail with patient. will be the DPOA. She wants to remain full code. PUD prophylaxis: Protonix twice daily DVT prophylaxis: CDs, heparin 5000 every 12 hourly. Discharge planning: Patient would benefit from SNF placement though patient is declining and would want to be discharged home. Plan to discharge home with home health within next 24 hours if patient remains hemodynamically stable on IV antibiotics through port. Continue with care at CSU level Plan for the day: vancomycin trough levels elevated. Repeat trough levels in afternoon. Change vancomycin dose keeping trough levels between 15 and 20. Follow-up repeat blood cultures. Monitor CBC and CMP daily. Patient developed atrial fibrillation with rapid ventricular response for few hours went back into sinus rhythm. IV metoprolol 5 mg given one-time. After IV metoprolol push patient converted to normal sinus rhythm. Increase metoprolol to 50 mg twice daily. Start on amiodarone 200 mg twice daily with plan to taper to 20 mg daily in 7 days. Appreciate repeat echocardiogram results for stable pericardial effusion without concerns for tamponade. Repeat CT chest. Given slow improvement in platelet counts, concerns for cancer cachexia for now start patient of steroids with Decadron 2 mg twice daily. Still concerns for fluid overload. Start patient on oral Lasix 40 mg one-time. This documentation was created by [employer] administration internship software. Every effort was made to ensure accuracy of administration internship. Any obvious errors or omissions should be clarified with the author of the document. Hours but Attestations Medical Necessity Statement*: Requires further hospitalization for management of MRSA bacteremia, tamponade secondary to malignant pericardial effusion, atrial flutter with rapid ventricular response, ischemia of right upper extremity Diagnoses MRSA (methicillin resistant Staphylococcus aureus) septicemia A41.02 Sepsis A41.9 Pericardial effusion I31.39 Ischemia of right upper extremity I99.8 Thrombocytopenia D69.6 INDRA (acute kidney injury) N17.9 Acute respiratory failure J96.00 Hemoptysis R04.2 Transaminitis R74.01 Cardiac arrest I46.9 Pericardial effusion with cardiac tamponade I31.39; I31.4 Malignant pericardial effusion in disease classified elsewhere I31.31 Hypoalbuminemia E88.09 Metastatic urothelial carcinoma C79.10 Hyponatremia E87.1 Hyperkalemia E87.5 UTI (urinary tract infection) N39.0 Hypotension I95.9 Poor venous access I87.8 Fluid overload E87.70 Goals of care, counseling/discussion Z71.89 Protein-energy malnutrition E46 Atrial fibrillation and flutter I48.91; I48.92
--- NOTE | 2023-01-01 17:05 | USCV_ITS ---
Skye Ambrose Age: 62 Gender: F : 1960 Exam Date: 01/01/2023 01:27 Ordering Phys: Cesar Jiménez MD Technologist: KEVIN Exam Location: [facility] – [place] Indication: LIMITED study for EF and recheck pericardial effusion. BP: 126 / 77 HR: 74 Rhythm: Sinus Technical Quality: Adequate MEASUREMENTS (Male / Female) Normal Values 2D ECHO LV Diastolic Diameter PLAX 5.1 cm 4.2 - 5.9 / 3.9 - 5.3 cm LV Systolic Diameter PLAX 4.6 cm IVS Diastolic Thickness 0.9 cm 0.6 - 1.0 / 0.6 - 0.9 cm IVS Systolic Thickness 1.1 cm LVPW Diastolic Thickness 0.8 cm 0.6 - 1.0 / 0.6 - 0.9 cm LVPW Systolic Thickness 0.7 cm LV Ejection Fraction 2D Teich 22.9 % LV Ejection Fraction MOD 2C 34.1 % LV Ejection Fraction 2C AL 32.8 % LA Width 4.8 cm LA Height 5.8 cm RA Width 2.2 cm RA Height 4.0 cm IVC Diameter 2.2 cm DOPPLER TR Peak Velocity 295.0 cm/s TR Peak Gradient 34.8 mmHg TV Peak E Velocity 44.0 cm/s Right Atrial Pressure 5.0 mmHg Pulmonary Artery Systolic Pressu 39.8 mmHg FINDINGS Left Ventricle Diffuse hypokinesia of the left ventricular ejection fraction of 33%. Right Ventricle Normal RV size and ejection fraction with no evidence of any diastolic relative collapse Right Atrium Normal right atrial size with no Significant: Left Atrium Mildly increased left atrial size. Mitral Valve Thickened mitral valve. Aortic Valve Trace aortic valve regurgitation. Tricuspid Valve No gross abnormalities noted Pulmonic Valve Pulmonic valve not well visualized. Pericardium Small pericardial effusion. Moderate echo-free space around the right atrium . Aorta Normal aortic annulus size. IVC Normal IVC with less than 50% respiratory vision. Radiation CONCLUSIONS Diffuse hypokinesia of the left ventricular ejection fraction of 33%. Moderate loculated pericardial effusion around the right atrium. Minimal effusion around the ventricle Mildly increased left atrial size. Trace aortic valve regurgitation. Thickened mitral valve. No echocardiographic evidence of tamponade at this point. The LV ejection fraction has slightly decreased compared to the study from December 16, 2022 Dr Neelam Salas MD FACC (Electronically Signed) Final Date: 01 January 2023 08:52 S
[2023-01-01] MEDS: dexamethasone 4 mg Tablet 2 MG PO (17:43)
[2023-01-01] MEDS: amiodarone 200 mg Tablet PO (17:44)
[2023-01-01] MEDS: metoprolol tartrate 50 mg Tablet PO (20:30)
--- NOTE | 2023-01-01 21:34 | PC.NURSE ---
Addendum entered by Grace Youngblood RN 01/02/23 01:37: Responded to pts call light @approximately 0120- pt wanted sheets straighten. With much encouragement pt was rolled, sheets changed, 1 BM noted, skin assessment done on sacrum and back. Bath pack used to bath back and bottom. Dressing on sacrum changed. Pt continued to refuse skin assessment of front of body and turning. Addendum entered by Grace Youngblood RN 01/02/23 01:13: Responded to pt call light @approximately 0100- pt requested to be boosted up in bed. Offered bathing and turning to pt and explained purpose and importance. Pt adamantly refused. Asked for permission to preform a skin assessment and explained purpose and importance. Pt adamantly refused. Original Note: Refusing Care: Pt refused skin assessment and changing of dressings on her R. Upper Arm and sacrum. Pt also refused bathing and Q2HR turning. Pt stated something similar to, I'm not doing any of that until my pain is better and don't ask me again when this RN discussed her skin assessment, dressing change, bath, and turning. Pt is reporting 8/10 pain. See MAR for medication administration.
[2023-01-02] VITALS (13 sets, daily range): BP systolic 102–130; BP diastolic 52–73; PULSE 72–94; RESP 14–27; TEMP 36.7–36.9; O2SAT 86–97
[2023-01-02] MEDS: oxyCODONE 5 mg IR Tab/Cap PO ×3 (02:36→15:08)
[2023-01-02] MEDS: heparin 5,000 unit/mL INJ 1 mL 5000 UNIT SUBCUT (02:37)
[2023-01-02] MEDS: ondansetron 2 mg/ML SDV 2 mL 4 MG IVP ×2 (03:53→09:59)
[2023-01-02 04:14] LABS: Basophils % 0.5 %; Eosinophils % 0.2 %; Hematocrit 28.6 % (36-47); Lymphocytes # 1.1 10^3/uL (0.8-4.8); Lymphocytes % 16.6 %; Mean Corpuscular HGB Conc 32.9 g/dL (30-55); Mean Corpuscular Hemoglobin 30.5 pg (27-33); Mean Corpuscular Volume 92.9 fl (85-98); Monocytes # 0.5 10^3/uL (0.2-0.9); Monocytes % 7.6 %; Neutrophils # 4.73 10^3/uL (1.8-7.7); Neutrophils % 74.5 %; Nucleated Red Blood Cells % 0 %; Platelet Count 46 10^3/cmm (157-399); Red Blood Count 3.08 10^6/uL (3.85-5.65); Red Cell Distribution Width 22.8 % (12.1-15.1); White Blood Count 6.34 10^3/uL (3.29-11.43)
[2023-01-02 04:33] LABS: Alanine Aminotransferase 10 U/L (0-33); Albumin Level 2.9 g/dL (3.5-5.2); Alkaline Phosphatase 126 U/L (35-105); Anion Gap 12.7 (5-19); Aspartate Amino Transferase 12 U/L (0-32); Blood Urea Nitrogen 17 mg/dL (8-23); Calcium 8.6 mg/dL (8.5-10.5); Carbon Dioxide 31 mmol/L (22-29); Chloride 94 mmol/L (98-107); Globulin 2.1 g/dL (1.3-4.6); Glomerular Filtration Rate 72.9 mL/min (90-130); Glucose 102 mg/dL (65-115); Osmolality Calculated 282 mOsm/kg (285-295); Sodium 135 mmol/L (136-145); Total Bilirubin 1.3 mg/dL (0.15-1.2)
[2023-01-02 05:03] LABS: Potassium 2.7 mmol/L (3.5-5.1)
[2023-01-02] MEDS: potassium chloride premix 100 ML 25 MEQ IV (05:19)
[2023-01-02] MEDS: metoclopramide 5 mg/mL SDV 2 mL IVP ×2 (05:39→12:49)
[2023-01-02] MEDS: oxyCODONE 10 mg ER (12 HR) Tablet PO ×2 (08:44→17:26)
[2023-01-02] MEDS: dexamethasone 4 mg Tablet 2 MG PO ×2 (08:44→17:26)
[2023-01-02] MEDS: metoprolol tartrate 50 mg Tablet PO (08:44)
[2023-01-02] MEDS: amiodarone 200 mg Tablet PO ×2 (08:45→17:26)
--- NOTE | 2023-01-02 08:52 | PC.NURSE ---
patient refused physical assessment at this time. patient also stated that she could not take a thousand pills right now. Just give me the oxy . pain medication administered. After pain medications patient stated I can't deal with you right now. just get out
[2023-01-02] MEDS: potassium chloride ER 20 mEq Tablet 40 MEQ PO (09:50)
[2023-01-02] MEDS: LORazepam 0.5 mg Tablet PO ×2 (09:59→15:08)
[2023-01-02] MEDS: vancomycin 1,000 MG in sodium chloride 0.9% 250 ML 250 MG IV (12:45)
[2023-01-02 13:14] LABS: Anion Gap 12.9 (5-19); Blood Urea Nitrogen 18 mg/dL (8-23); Calcium 8.6 mg/dL (8.5-10.5); Carbon Dioxide 30 mmol/L (22-29); Chloride 96 mmol/L (98-107); Glomerular Filtration Rate 72.9 mL/min (90-130); Glucose 95 mg/dL (65-115); Osmolality Calculated 282 mOsm/kg (285-295); Potassium 3.9 mmol/L (3.5-5.1); Sodium 135 mmol/L (136-145)
--- NOTE | 2023-01-02 13:21 | PM.DCS ---
Discharge Providers Date of Admission: 12/16/22 15:09 Date of Discharge: January 02, 2023 Attending Provider at Admission: Ciro Norman MD Attending Provider at Discharge: Cesar Jiménez MD Consults: Cardiothoracic surgery: Dr. Nunez Surgery: Dr. Rick Schwarz ID: Dr. Davison Cardiology: Dr. Salas/Dr. 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: Status: Acute (13) Hypoalbuminemia: Status: Acute (14) Metastatic urothelial carcinoma: Status: Acute (15) Hyponatremia: Status: Acute (16) Hyperkalemia: Status: Acute (17) UTI (urinary tract infection): Status: Acute (18) Hypotension: Status: Acute (19) Poor venous access: Status: Acute (20) Fluid overload: Status: Acute (21) Goals of care, counseling/discussion: Status: Acute (22) Protein-energy malnutrition: Status: Acute (23) Atrial fibrillation and flutter: Status: Acute Reason for Visit Reason for Visit: sob Brief History: History as per HPI: Skye Ambrose is a 62 year old female who has metastatic bladder cancer currently being treated by oncology.? She presents with 1 day of increasing shortness of breath, chills, nausea.? She has been taking Lasix for concerns of fluid overload lately.? She has not been urinating as much.? She denies any vomiting.? She is constipated and has not had a bowel movement in the last several days.? No blood in her stool or black or tarry stools.? No documented fevers.? Last chemotherapy treatment approximately November 12.? She states she is due for one today. In the emergency department she received a sepsis bolus of fluids, IV vancomycin and Zosyn, a dose of morphine, a breathing treatment, and 10 mg of dexamethasone.? She came in on epinephrine, and norepinephrine was ordered but her blood pressure has risen and it has not yet been started. Hospital Course Hospital Course Patient had a very long and complicated hospitalization. Her hospital stay was complicated by cardiac arrest requiring CPR, DIC, significant thrombocytopenia, significant anemia requiring multiple blood transfusions, MRSA bacteremia, malignant pericarditis, critical limb ischemia of right hand, atrial flutter and fibrillation. On admission she was found to have hemodynamically significant pericardial effusion with concerns for tamponade. Cardiothoracic surgery was consulted and she was taken to the OR for pericardiocentesis. During induction she required about 2 minutes of CPR, and received epinephrine.? Pericardial fluid that was drained was approximately 750 cc, bloody. She was transferred to ICU where she was managed for cardiogenic shock with multiple pressors. Her blood cultures from admission came back positive for MRSA, urine cultures came back positive for Proteus and E. coli. She was started on antibiotics as per broad-spectrum antibiotics which were later tailored as per culture sensitivities. During hospitalization patient had developed severe thrombocytopenia, anemia for which she required multiple blood transfusions. Thrombocytopenia was thought to be secondary to DIC which was managed conservatively. During trial of placement of arterial line patient developed acute limb ischemia of right hand which was also managed conservatively and later with heparin drip very tentatively given severe thrombocytopenia. Her circulation in the right arm has been improving gradually. Pericardial fluid study came back positive for malignancy secondary to urothelial primary. Source of MRSA bacteremia is secondary to the port infection. Infective endocarditis was ruled out with a negative FRANCIS. During hospitalization she also developed atrial flutter with fibrillation for which she was managed with oral amiodarone and metoprolol. Patient has shown very slow gradual improvement. Repeat echocardiogram on 01/01 showed EF of 33% with moderate loculated pericardial effusion. Blood cultures from 12/25 and 12/27 are so far negative. Patient has been working very limited with physical therapy. Given prolonged dramatic critical hospitalization patient has developed severe protein energy malnutrition and deconditioning. Safe discharge planning was discussed in detail many times with patient and patient's with advised to discharge to SNF which was declined multiple times. Home health is being arranged. She has been discharged in hemodynamically stable condition on IV vancomycin 1 g daily for next 6 weeks starting 12/25. During an antibiotic she would need to have repeat vancomycin trough levels, creatinine which will be followed by ID clinic. She is advised to follow-up with oncology at the earliest for further discussion of treatment plan. She is being discharged on Decadron 2 mg twice daily for cancer cachexia. Patient is discharged in best optimized chronically ill condition and is at a higher risk of readmission. Goals of care discussions were also done multiple times during hospitalization with both patient and her . Patient wants to remain full code and continue with trial of chemotherapy as an outpatient. Physical Exam Narrative: General exam no distress, on 2 L of oxygen, conversant, chronically sick appearing, tired Neck is supple no lymphadenopathy thyromegaly Cardiovascular regular rate and rhythm, no murmur. Lungs diminished breath sounds bilaterally. No wheezes or crackles Abdomen soft, bowel sounds are noted Extremities no extraordinary cyanosis clubbing or edema. Right upper extremity with cyanotic right hand especially side of thumb. Cap refill impaired., She has good movement, and I believe it is somewhat better than yesterday. Skin no rash Neuro: Follows all commands Urinary Catheter Management: [place]ffman: Cath Placed During This Visit: yes Reason for Continuing Indwelling Catheter: Assist healing open wound Urinary Catheter Date of Insertion: 12/30/22 Urinary Catheter Time of Insertion: 21:13 Discharge Data Studies Completed and Pending Completed Studies During Hospitalization Category Date Time Status CT chest wo con 34107 Routine Cat Scan 01/01/23 12:[address] kidney stone 41278 Stat Cat Scan 12/16/22 11:32 Completed CXRP [XR chest 1V portable [id number]] Routine Exams 12/28/22 17:15 Completed XR chest 1V portable [id number] Routine Exams 12/17/22 07:00 Completed XR chest 1V portable [id number] Routine Exams 12/17/22 09:48 Completed XR chest 1V portable [id number] Routine Exams 12/18/22 07:00 Completed XR chest 1V portable [id number] Routine Exams 12/19/22 07:00 Completed XR chest 1V portable [id number] Routine Exams 12/30/22 Completed XR chest 1V portable [id number] Stat Exams 12/16/22 10:01 Completed XR chest 1V portable [id number] Stat Exams 12/16/22 16:34 Completed Pathology: Surgical [PTH] Routine Pth 12/16/22 15:19 [place] [id number] Stat Ultrasound 12/17/22 20:18 Completed CV. echo limited [id number] Routine Ultrasound 01/01/23 17:05 Completed CV. echo transesophageal 27591 Routine Ultrasound 12/18/22 10:00 Completed US echo complete [CV. echo complete* [id number]] Stat Ultrasound 12/16/22 13:16 Completed US venous duplex upper extremity RT [CV venous duplex Ultrasound 12/24/22 22:[address] [place] [id number]] Stat Pending at discharge Category Date Time Status XR chest 1V portable [id number] Routine Exams 12/30/22 08:36 Taken Blood Culture Stat Lab 12/31/22 08:24 Results Fibrinogen Degradation Product Routine Lab 12/25/22 03:55 Received Fibrinogen Degradation Product Routine Lab 12/30/22 02:03 Received Leukocyte Reduced RBC Routine Lab 12/31/22 06:21 Results Miscellaneous Test Routine Lab 12/27/22 13:44 Received Miscellaneous Test Routine Lab 12/27/22 13:52 Received Occult Blood Stool [Immunochemical Fecal OCB] Routine Lab 12/27/22 09:06 Uncollected Sputum Culture and Gram Stain Routine Lab 12/16/22 18:30 Results Type and Screen Routine Lab 12/31/22 06:21 Results Radiology Impressions Duplex Scan Upper Extremity Artery 12/17/22 20:18 IMPRESSION: No flow is detected in the distal aspect of the right radial artery concerning for occlusion. Consider evaluation with CTA or conventional angiography. Venous Duplex 12/24/22 22:02 IMPRESSION: 1. Negative for deep venous thrombosis. 2. Right internal jugular vein catheter. 3. Incidentally noted is suspected occlusion of the mid to distal right radial artery, as previously reported on arterial ultrasound from 12/17/2022. 4. Subcutaneous edema at the forearm. Chest CT 01/01/23 12:09 IMPRESSION: 1. Borderline cardiomegaly with moderate-sized pericardial effusion slightly increased in size from previous exam. 2. Moderate-sized bilateral pleural effusions with adjacent compressive atelectasis and generalized anasarca in the soft tissues that may be secondary to CHF/volume overload. 3. Scattered small peribronchial opacities likely inflammatory in nature. 4. 3 cm circumscribed chest wall mass situated just below the right chest port developed from prior study in presumed iatrogenic in nature. Echocardiogram: 12/16: CONCLUSIONS ?1. Normal left ventricular size and wall thickness. Moderately ?decreased left ventricular systolic function. Left ventricular ?ejection fraction is estimated at 40 %. Moderate global left ?ventricular hypokinesis. Grade I diastolic dysfunction (abnormal ?relaxation filling pattern), normal to mildly elevated filling ?pressures.? ?2. Large circumferential pericardial effusion. There seems to be ?right ventricular diastolic collapse compatible with a ?hemodynamically significant pericardial effusion. ?3.? When compared to previous study dated 30 August 2022, there is ?large pericardial effusion with tamponade physiology. ?Debbie Simmons MD ?(Electronically Signed) ?Final Date:? ? ? 16 December 2022 ? 14:33 FRANCIS: 12/18: CONCLUSIONS ?LV systolic function is mildly reduced. ?No vegetations seen ?Jose Jeff MD ?(Electronically Signed) ?Final Date:? ? ? 19 December 2022 ? 09:34 Echocardiogram: 01/01: CONCLUSIONS ?Diffuse hypokinesia of the left ventricular ejection fraction of ?33%. ?Moderate loculated pericardial effusion around the right atrium.? ?Minimal effusion around the ventricle ?Mildly increased left atrial size. ?Trace aortic valve regurgitation. ?Thickened mitral valve. ?No echocardiographic evidence of tamponade at this point. ?The LV ejection fraction has slightly decreased compared to the ?study from? December 16, 2022 ?Dr Neelam Salas MD [facility] ?(Electronically Signed) ?Final Date:? ? ? 01 January 2023 ? 08:52 Microbiology 12/27/22 15:55 Blood Blood Culture - Final NO GROWTH AFTER 5 DAYS 12/27/22 15:00 Blood Blood Culture - Final NO GROWTH AFTER 5 DAYS 12/30/22 02:22 Central Line Catheter Tip Culture - Final 12/31/22 08:24 Blood Blood Culture - Preliminary NEGATIVE TO DATE 12/31/22 09:19 Blood Blood Culture - Preliminary NEGATIVE TO DATE 12/25/22 03:55 Blood Blood Culture - Final NO GROWTH AFTER 5 DAYS 12/25/22 03:55 Blood Blood Culture - Final NO GROWTH AFTER 5 DAYS 12/16/22 18:30 Sputum - Endotracheal Tube Aspirate Gram Stain - Final 12/16/22 18:30 Sputum - Endotracheal Tube Aspirate Sputum Culture - Preliminary 12/18/22 06:43 Blood Blood Culture - Final Methicillin Resis Staph Aureus 12/18/22 06:47 Blood Blood Culture - Final Methicillin Resis Staph Aureus 12/18/22 15:26 Other Source Catheter Tip Culture - Final Methicillin Resis Staph Aureus 12/16/22 10:33 Blood Blood Culture - Final Methicillin Resis Staph Aureus 12/16/22 10:29 Blood Blood Culture - Final Methicillin Resis Staph Aureus 12/21/22 12:00 Urine,Clean Catch Urine Culture - Final 12/16/22 10:32 Urine,Clean Catch Urine Culture - Final Escherichia coli Proteus vulgaris Laboratory Results WBC 6.34 10^3/uL (3.29-11.43) 01/02/23 03:45 RBC 3.08 10^6/uL (3.85-5.65) L 01/02/23 03:45 Hgb 9.40 g/dL (11.27-16.99) L 01/02/23 03:45 Hct 28.6 % (36-47) L 01/02/23 03:45 MCV 92.9 fl (85-98) 01/02/23 03:45 MCH 30.5 pg (27-33) 01/02/23 03:45 MCHC 32.9 g/dL (30-55) 01/02/23 03:45 RDW 22.8 % (12.1-15.1) H 01/02/23 03:45 Plt Count 46 10^3/cmm (157-399) L 01/02/23 03:45 MPV 11.0 fL (7.4-10.4) H 01/02/23 03:45 Neut % (Auto) 74.5 % 01/02/23 03:45 Lymph % (Auto) 16.6 % 01/02/23 03:45 [place] % (Auto) 7.6 % 01/02/23 03:45 Eos % (Auto) 0.2 % 01/02/23 03:45 Baso % (Auto) 0.5 % 01/02/23 03:45 Reticulocyte % (Auto) 6.0 % (0.5-2.0) H 12/21/22 03:24 Neut # (Auto) 4.73 10^3/uL (1.8-7.7) 01/02/23 03:45 Lymph # (Auto) 1.1 10^3/uL (0.8-4.8) 01/02/23 03:45 [place] # (Auto) 0.5 10^3/uL (0.2-0.9) 01/02/23 03:45 Eos # (Auto) 0.0 10^3/uL (0.0-0.8) 01/02/23 03:45 Baso # (Auto) 0.0 10^3/uL (0.0-0.1) 01/02/23 03:45 Nucleated RBC % (auto) 0 % 01/02/23 03:45 Total Counted 100 (0-100) 12/31/22 04:34 Atypical Lymphs % 10.0 % (0-5) H 12/31/22 04:34 Segmented Neutrophils 77 % 12/31/22 04:34 Band Neutrophils 0.0 % 12/31/22 04:34 Lymphocytes (Manual) 9 % 12/31/22 04:34 Monocytes (Manual) 3.0 % 12/31/22 04:34 Eosinophils (Manual) 1 % 12/31/22 04:34 Basophils (Manual) 0.0 % 12/31/22 04:34 Nucleated RBCs # 0.0 /100WBC 01/02/23 03:45 Platelet Estimate Decreased (Normal) L 12/31/22 04:34 Anisocytosis 1+ H 12/31/22 04:34 Peripher Smr Path Cons Sent for review 12/21/22 03:24 PT 15.90 SECONDS (12.1-14.9) H 12/30/22 01:58 INR 1.23 (0.8-1.2) H 12/30/22 01:58 APTT 41.2 SECONDS (23.9-36.7) H 12/30/22 01:58 Fibrinogen 611 mg/dL (174-498) H 12/30/22 01:58 Fibrin Degrad Products Not Reportable 12/25/22 03:55 D-Dimer 16.76 ug/mLFEU (0-0.59) H 12/30/22 01:58 Specimen Type Arterial 12/19/22 04:27 Sample Site Not specified 12/19/22 04:27 ABG pH 7.38 (7.35-7.45) 12/19/22 04:27 ABG pCO2 43.7 mmHg (35-45) 12/19/22 04:27 ABG pO2 83.3 mmHg (80.0-100.0) 12/19/22 04:27 ABG HCO3 25.9 mmol/L (22-26) 12/19/22 04:27 ABG O2 Saturation 93.5 12/17/22 17:33 ABG Base Excess 0.6 mmol/L (-2.0-2.0) 12/19/22 04:27 Tan Test N/a 12/19/22 04:27 A-a O2 Gradient 18.5 mmHg (5-10) H 12/17/22 17:33 Hematocrit 28.8 % (37-47) L 12/19/22 04:27 Hgb O2 Saturation 91.6 % (95-100) L 12/17/22 17:33 Carboxyhemoglobin 1.7 %THgb (0.4-20.1) 12/17/22 17:33 Methemoglobin 0.3 % (0.4-1.5) L 12/17/22 17:33 Total Hemoglobin 10.2 g/dL (12-16) L 12/17/22 17:33 Sodium 132.0 mmol/L (131-143) 12/17/22 17:33 Potassium 3.3 mmol/L (3.5-5.0) L 12/17/22 17:33 Glucose 80.0 mg/dL (70-115) 12/17/22 17:33 Ionized Calcium 1.0 mmol/L (1.1-1.4) L 12/17/22 17:33 O2 Delivery Device Vent 12/19/22 04:27 O2 Liters/Min 2.0 % 12/16/22 10:02 FiO2 35.0 % 12/19/22 04:27 Tidal Volume 0.35 12/19/22 04:27 PEEP 5.0 cmH20 12/19/22 04:27 Continuous Pickling Line Pickler Helper ID Jayden 12/19/22 04:27 Sodium 135 mmol/L (136-145) L 01/02/23 12:44 Potassium 3.9 mmol/L (3.5-5.1) 01/02/23 12:44 Chloride 96 mmol/L (98-107) L 01/02/23 12:44 Carbon Dioxide 30 mmol/L (22-29) H 01/02/23 12:44 Anion Gap 12.9 (5-19) 01/02/23 12:44 BUN 18 mg/dL (8-23) 01/02/23 12:44 Creatinine 0.8 mg/dL (0.5-0.9) 01/02/23 12:44 GFR Calculation 72.9 mL/min (90-130) L 01/02/23 12:44 Glucose 95 mg/dL (65-115) 01/02/23 12:44 POC Glucose 100 mg/dL (70-110) 12/19/22 01:20 Calculated Osmolality 282 mOsm/kg (285-295) L 01/02/23 12:44 Lactic Acid 14.2 mmol/L (0.5-2.2) H* 12/16/22 10:29 Lactic Acid (Sepsis) 14.6 mmol/L (0.5-2.2) H* 12/16/22 13:37 Calcium 8.6 mg/dL (8.5-10.5) 01/02/23 12:44 Phosphorus 4.3 mg/dL (2.5-4.5) 12/18/22 04:05 Magnesium 1.6 mg/dL (1.7-2.3) L 12/30/22 01:58 Iron 61 ug/dL (37-145) 12/21/22 03:24 TIBC 177 mcg/dl 12/21/22 03:24 % Saturation 34.4 % (20-50) 12/21/22 03:24 Unsat Iron Binding 116 ug/dL (112-347) 12/21/22 03:24 Ferritin 462 ng/mL (15-150) H 12/21/22 03:24 Total Bilirubin 1.3 mg/dL (0.15-1.2) H 01/02/23 03:45 AST 12 U/L (0-32) 01/02/23 03:45 ALT 10 U/L (0-33) 01/02/23 03:45 Alkaline Phosphatase 126 U/L (35-105) H 01/02/23 03:45 Lactate Dehydrogenase 426 U/L (135-214) H 12/21/22 03:24 Creatine Kinase 114 U/L (26-192) 12/28/22 03:15 NT-Pro-B Natriuret Pep 63629 pg/mL (0-125) H 12/30/22 01:58 Total Protein 5.0 g/dL (6.6-8.7) L 01/02/23 03:45 Albumin 2.9 g/dL (3.5-5.2) L 01/02/23 03:45 Globulin 2.1 g/dL (1.3-4.6) 01/02/23 03:45 Vitamin B12 Cancelled 12/21/22 03:24 Vit B12 Status 1855 pg/mL (200-1100) H 12/21/22 03:24 Folate 2.0 ng/mL (4.8-37.3) L 12/22/22 05:02 Procalcitonin 1.17 ng/mL (0-0.5) H 12/21/22 03:24 TSH 3.74 uIU/mL (0.27-4.20) 12/16/22 10:33 Random Cortisol 13.74 ug/dL (2.47-19.5) 12/31/22 04:34 Urine Color Yellow (Yellow) 12/21/22 12:00 Urine Appearance Sl hazy (CLEAR) A 12/21/22 12:00 Urine pH 5 (5-7) 12/21/22 12:00 Ur Specific Jbphh 1.010 (1.005-1.030) 12/21/22 12:00 Urine Protein Trace (Negative) 12/21/22 12:00 Urine Glucose (UA) Trace (Normal) H 12/21/22 12:00 Urine Ketones Negative (Negative) 12/21/22 12:00 Urine Blood 3+ (Negative) H 12/21/22 12:00 Urine Nitrate Negative (Negative) 12/21/22 12:00 Urine Bilirubin Neg (Negative) 12/21/22 12:00 Urine Urobilinogen Norm mg/dL (Negative) 12/21/22 12:00 Ur Leukocyte Esterase Trace (Negative) H 12/21/22 12:00 Urine RBC 0-4 /hpf (0-2) H 12/21/22 12:00 Urine WBC 10-15 /hpf (0-5) H 12/21/22 12:00 Ur Squamous Epith Cells 0-4 /hpf (0-5) H 12/21/22 12:00 Ur Transition Epith Cell 5-10 /hpf 12/21/22 12:00 Ur Renal Epithelial Cell 5-10 /hpf 12/21/22 12:00 Amorphous Sediment Not Reportable 12/21/22 12:00 Urine Bacteria Trace /hpf (NONE) 12/21/22 12:00 Coarse Granular Casts 5-10 /lpf H 12/21/22 12:00 Other Casts Waxy /lpf 12/21/22 12:00 Ur Random Sodium 21 mmol/L 12/21/22 12:00 Ur Random Potassium 23 mmol/L 12/21/22 12:00 Ur Random Chloride 37 mmol/L 12/21/22 12:00 Nasal Influ A H1 2009 PCR Not detected (NOT DETECT) 12/31/22 14:35 Vancomycin Trough 21.0 ug/mL (10-15) H 01/01/23 10:47 Adenovirus (PCR) Not detected (NOT DETECT) 12/31/22 14:35 C. pneumoniae DNA (PCR) Not detected (NOT DETECT) 12/31/22 14:35 Coronavirus 229E (PCR) Not detected (NOT DETECT) 12/31/22 14:35 Human Metapneumovir PCR Not detected (NOT DETECT) 12/31/22 14:35 Influenza A (H1) PCR Not detected (NOT DETECT) 12/31/22 14:35 Influenza A (H3) PCR Not detected (NOT DETECT) 12/31/22 14:35 Influenza Type A (PCR) Not detected (NOT DETECT) 12/31/22 14:35 Influenza Type B (PCR) Not detected (NOT DETECT) 12/31/22 14:35 M. pneumoniae (PCR) Not detected (NOT DETECT) 12/31/22 14:35 Parainfluenza 1 (PCR) Not detected (NOT DETECT) 12/31/22 14:35 Parainfluenza 2 (PCR) Not detected (NOT DETECT) 12/31/22 14:35 Parainfluenza 3 (PCR) Not detected (NOT DETECT) 12/31/22 14:35 Parainfluenza 4 (PCR) Not detected (NOT DETECT) 12/31/22 14:35 RSV Type A (PCR) Not detected (NOT DETECT) 12/31/22 14:35 RSV Type B (PCR) Not detected (NOT DETECT) 12/31/22 14:35 Entero/Rhino (PCR) Not detected (NOT DETECT) 12/31/22 14:35 SARS-CoV-2 (PCR) Not detected (NOT DETECT) 12/31/22 14:35 MRSA (PCR) Detected (NOT DETECTED) A 12/16/22 17:50 Misc Test Reference Cancelled 12/27/22 13:15 Blood Type A Positive 12/31/22 06:21 Rho(D) Type Positive 12/31/22 06:21 Antibody Screen Negative 12/31/22 06:21 Crossmatch See Detail 12/31/22 06:21 Vitals Last Vital Signs Temp 98.5 F 01/02/23 12:00 Pulse 72 01/02/23 12:00 Resp 27 H 01/02/23 12:00 BP 115/69 01/02/23 12:00 Pulse Ox 97 01/02/23 12:00 O2 Del Method Nasal Cannula 01/02/23 12:00 O2 Flow Rate 3 01/02/23 07:18 FiO2 35 12/19/22 13:11 Discharge Plan Discharge Patient Disposition: Home Health Service Condition: Stable Prescriptions: New terbinafine HCl 1 % Cream 1 applic topical BID Qty: 15 0RF polyethylene glycol 3350 17 gram Powder In Packet 17 g PO BID 14 Days Qty: 28 0RF benzonatate 100 mg Capsule 100 mg PO TID PRN (Reason: cough) Qty: 15 0RF pantoprazole 40 mg Tablet,Delayed Release (Dr/Ec) 40 mg PO BID 30 Days Qty: 60 0RF dexamethasone 4 mg Tablet 2 mg PO BID 15 Days Qty: 15 0RF Pacerone 200 mg Tablet 200 mg PO BID Qty: 60 0RF Rx Instructions: Twice daily for next 7 days followed by once daily Mucinex 600 mg Tablet Extended Release 12hr 600 mg PO BID Qty: 14 0RF nystatin 100,000 unit/mL Suspension 100,000 unit PO QID Qty: 200 0RF metoprolol tartrate 50 mg Tablet 50 mg PO BID@0900,2100 30 Days Qty: 60 0RF oxycodone 5 mg tablet 5 mg PO Q8H PRN (Reason: pain) 5 Days Qty: 15 0RF OxyContin 10 mg tablet,oral only,ext.rel.12 hr 10 mg PO BID 5 Days Qty: 10 0RF Continued artifi.tears(hypromellose)(PF) 0.3 % drops 1 drp ophthalmic (eye) DAILY PRN (Reason: right eye) potassium chloride 40 mEq/15 mL liquid 40 meq PO DAILY Qty: 450 5RF albuterol sulfate 2.5 mg /3 mL (0.083 %) solution for nebulization 2.5 mg inhalation Q4H PRN (Reason: shortness of breath or wheezing) Qty: 300 5RF albuterol sulfate [ProAir HFA] 90 mcg/actuation HFA aerosol inhaler 2 puff inhalation Q6H PRN (Reason: shortness of breath or wheezing) Qty: 18 5RF valacyclovir 1 gram tablet 1,000 mg PO DAILY 30 Days Qty: 30 5RF lidocaine 5 % adhesive patch,medicated 1 patch topical DAILY PRN (Reason: pain) Qty: 30 2RF Rx Instructions: leave on most painful area for up to 12 hrs then off for 12 hours fluticasone propionate [Allergy Relief (fluticasone)] 50 mcg/actuation spray,suspension 2 spray intranasal DAILY Qty: 16 0RF Rx Instructions: administer into each nostril epinephrine [EpiPen] 0.3 mg/0.3 mL auto-injector 0.3 mg IM Q10M PRN (Reason: anaphylaxis) Qty: 1 2RF Rx Instructions: for 2 doses DOK 100 mg capsule 100 mg PO BID PRN (Reason: Constipation) nystatin 100,000 unit/mL suspension 5 ml PO TID PRN (Reason: unknown) Rx Instructions: swish and spit ondansetron 4 mg tablet,disintegrating 4 mg PO TID Qty: 90 0RF Rx Instructions: Mild nausea lidocaine-prilocaine 2.5-2.5 % cream See Rx Instructions .ROUTE .COMPLEX Rx Instructions: Apply 30-45 minutes prior to port access Pulmicort 0.5 mg/2 mL suspension for nebulization 0.5 mg inhalation BID PRN (Reason: unknown) megestrol 400 mg/10 mL (10 mL) suspension 200 mg PO BID PRN (Reason: unknown) oxycodone 5 mg tablet 5 mg PO Q8H PRN (Reason: pain) 5 Days Qty: 30 0RF Rx Instructions: rx filled 11/19/22 30d/s #30 OxyContin 10 mg tablet,oral only,ext.rel.12 hr 10 mg PO BID 5 Days Qty: 10 0RF Changed furosemide 40 mg tablet 40 mg PO DAILY Qty: 60 5RF Discontinued erdafitinib 4 mg tablet 8 mg PO DAILY Qty: 42 0RF Rx Instructions: not started as of 12/16/22 per pt -pt states suppose to start today 12/16/22 Discharge Orders: Discharge Order (Routine); Ordered 01/02/23 Ordered By: Cesar Jiménez Other Ambulatory Orders: CV. echo limited 30333 (Routine) Timeframe: 3 Weeks Location: [facility] Ordered By: Cesar Jiménez DME: Hospital Bed (Order) Location: None Selected Ordered By: Danie Simms DME: Oxygen (Order) Location: None Selected Ordered By: Cesar Jiménez Miscellaneous Procedure (Order) Location: None Selected Ordered By: Danie Simms Referrals: [facility] [Other] (Home Health service will not start until after your primary care appointment on 01/06/23.) Alivia Cid FNP-C [Nurse Practitioner] - 01/06/23 1:00 pm (You will need to keep this follow up appointment to establish a primary care provider. You will have to have a primary care provider in order for home health to do start of services. If you do not keep this appointment you will not get home health services. ) Ryan Rich MD [Hospitalist] - 01/07/23 8:30 am Discharge Diet: As Directed and Cardiac Discharge Activity: Resume usual activity and Increase activity as tolerated Patient Instructions: Benzonatate (By mouth) (Tessalon Perles, Zonatuss), Metoprolol (By mouth) (Lopressor, Toprol XL), Furosemide (By mouth) (Lasix), Guaifenesin (By mouth) (Allfen, Antitussin, Chest Congestion..., Nystatin (By mouth) (First - Wang's Mouthwash, First - Tonia's..., Amiodarone (By mouth) (Cordarone, Pacerone), Terbinafine (On the skin) (LamISIL, LamISIL AT Athlete's Foot,..., Dexamethasone (By mouth) (DexPak 10 Day TaperPak, DexPak 13 Day..., Pantoprazole (By mouth) (Protonix), Polyethylene Glycol 3350 (By mouth) (Miralax, Healthylax..., Opioid Safety Discharge Attestations Time Spent in Discharge Care*: greater than 30 min Specific Discharge Activities: educating patient, educating and/or supporting family/caregiver, discussing with pcp/other providers, discussing with casework manager/social workers/dc planners, documenting/other paperwork and evaluating patient/reviewing data Status at Discharge: Cognitive status at discharge: cognitively intact, Behavioral status at discharge: can be uncooperative, Functional status at discharge: uses cane/walker, Overall status at discharge: patient is progressing back to baseline Quality Metrics Clinical Quality Measures [ No reported AMI, CVA or VTE this stay] Coding Level of Care Code 53494 Total time (in minutes) for Discharge: 60 Diagnoses MRSA (methicillin resistant Staphylococcus aureus) septicemia A41.02 Sepsis A41.9 Pericardial effusion I31.39 Ischemia of right upper extremity I99.8 Thrombocytopenia D69.6 INDRA (acute kidney injury) N17.9 Acute respiratory failure J96.00 Hemoptysis R04.2 Transaminitis R74.01 Cardiac arrest I46.9 Pericardial effusion with cardiac tamponade I31.39; I31.4 Malignant pericardial effusion in disease classified elsewhere I31.31 Hypoalbuminemia E88.09 Metastatic urothelial carcinoma C79.10 Hyponatremia E87.1 Hyperkalemia E87.5 UTI (urinary tract infection) N39.0 Hypotension I95.9 Poor venous access I87.8 Fluid overload E87.70 Goals of care, counseling/discussion Z71.89 Protein-energy malnutrition E46 Atrial fibrillation and flutter I48.91; I48.92
--- NOTE | 2023-01-02 14:58 | P.PN_ITS ---
Subjective Subjective: Ms. Ambrose is now 17 days status post urgent subxiphoid pericardial window due to cardiac tamponade for malignant pleural effusion. She has made a remarkable recovery and is currently being prepared for discharge home today. Vitals/I&O/Wt Last Vital Signs Temp 98.5 F 01/02/23 12:00 Pulse 84 01/02/23 14:00 Resp 27 H 01/02/23 12:00 BP 115/69 01/02/23 12:00 Pulse Ox 93 01/02/23 14:00 O2 Del Method Nasal Cannula 01/02/23 14:00 O2 Flow Rate 2 01/02/23 14:00 FiO2 35 12/19/22 13:11 01/01/23 01/02/23 01/02/23 22:59 06:59 14:59 Intake Total 916 / 1252 340 / 340 Output Total 750 / 1600 Balance 916 / 402 -750 / -348 340 / 340 Weight last 48 hrs Weight 108 lb 11.2 oz Weight 116 lb 4 oz Physical Exam Chest: OTHER: Subxiphoid incision is well approximated and healing well. Surgical shayne were removed. Drain site also is well approximated. Retention suture was removed. Entire incision line was painted with chlorhexidine and sterile dressing reapplied. Urinary Catheter Management: Coffman: Cath Placed During This Visit: yes, but has since been removed by the nurse Reason for Continuing Indwelling Catheter: Decision to DC Catheter Urinary Catheter Date of Insertion: 12/30/22 Urinary Catheter Time of Insertion: 21:13 Date Urinary Catheter Removed: 01/02/23 Time Urinary Catheter Discontinued: 13:30 Data 01/02/23 03:45 01/02/23 12:44 Micro: Microbiology 12/27/22 15:55 Blood Culture - Final Blood NO GROWTH AFTER 5 DAYS 12/27/22 15:00 Blood Culture - Final Blood NO GROWTH AFTER 5 DAYS 12/30/22 02:22 Catheter Tip Culture - Final Central Line A&P Assessment and plan (1) Malignant pericardial effusion in disease classified elsewhere: 17-day status post subxiphoid pericardial window for malignant effusion with tamponade and hemodynamic collapse. Surgical shayne and sutures were removed and sterile dressing applied. Incision line appears to be healing well and is well approximated. If incision continues to heal well without concerns, no surgical follow-up is r equired. Attestations Medical Necessity Statement*: Status post urgent subxiphoid pericardial window for malignant effusion Coding Level of Care Code Acute Code for Chg Fwd Diagnoses Malignant pericardial effusion in disease classified elsewhere I31.31
[2023-01-02] MEDS: nystatin 100,000 unit/mL UDC 5 mL 100000 UNIT PO ×2 (15:09→17:26)
[2023-01-02] MEDS: pantoprazole DR 40 mg Tablet PO (17:26)
[2023-01-04 02:25] LABS: Fibrinogen Degradation Product 40 mcg/mL (LESS THAN 5)
[2023-01-09 06:19] LABS: Fibrinogen Degradation Product 40 mcg/mL (LESS THAN 5)
== END 2023-01-02 20:17 | disposition home health service (06) | DRG 981 ==
LOC: ER 10:52 → ICU 14:02 → CSU 12-24 11:19 → MEDSURG 12-26 20:00 → CSU 12-26 21:49
PROVIDERS: Family Medicine; Internal Medicine; Surgery; Thoracic Surgery (Cardiothoracic Vascular Surgery); Admitting Provider Internal Medicine; Emergency Provider Family Medicine; Visit Provider Student in an Organized Health Care Education/Training Program
PROC: 5A12012 Performance of Cardiac Output, Single, Manual (ICD-10-PCS; CPT 33025; principal; 2022-12-16 14:30)
PROC: 0JH60WZ Insertion of Totally Implantable Vascular Access Device into Chest Subcutaneous Tissue and Fascia, Open Approach (ICD-10-PCS; principal; 2022-12-30 12:30)
DX: T80.212A Local infection due to central venous catheter, initial encounter (principal); A41.02 Sepsis due to Methicillin resistant Staphylococcus aureus; R65.21 Severe sepsis with septic shock; D65 Disseminated intravascular coagulation [defibrination syndrome]; R57.0 Cardiogenic shock; E43 Unspecified severe protein-calorie malnutrition; J18.9 Pneumonia, unspecified organism; J96.00 Acute respiratory failure, unspecified whether with hypoxia or hypercapnia; J91.0 Malignant pleural effusion; I31.4 Cardiac tamponade; I97.711 Intraoperative cardiac arrest during other surgery; I31.31 Malignant pericardial effusion in diseases classified elsewhere; I70.268 Atherosclerosis of native arteries of extremities with gangrene, other extremity; I48.92 Unspecified atrial flutter; N39.0 Urinary tract infection, site not specified; I50.22 Chronic systolic (congestive) heart failure; C77.8 Secondary and unspecified malignant neoplasm of lymph nodes of multiple regions; C79.51 Secondary malignant neoplasm of bone; J44.0 Chronic obstructive pulmonary disease with (acute) lower respiratory infection; B02.29 Other postherpetic nervous system involvement; E87.1 Hypo-osmolality and hyponatremia; N17.9 Acute kidney failure, unspecified; N13.30 Unspecified hydronephrosis; I82.621 Acute embolism and thrombosis of deep veins of right upper extremity; Z45.2 Encounter for adjustment and management of vascular access device; Y81.8 Miscellaneous general- and plastic-surgery devices associated with adverse incidents, not elsewhere classified; K59.00 Constipation, unspecified; Z79.899 Other long term (current) drug therapy; D64.9 Anemia, unspecified; I48.91 Unspecified atrial fibrillation; B96.4 Proteus (mirabilis) (morganii) as the cause of diseases classified elsewhere; B96.20 Unspecified Escherichia coli [E. coli] as the cause of diseases classified elsewhere; I11.0 Hypertensive heart disease with heart failure; Z68.20 Body mass index [BMI] 20.0-20.9, adult; Z79.891 Long term (current) use of opiate analgesic; C67.9 Malignant neoplasm of bladder, unspecified; Z91.041 Radiographic dye allergy status; F41.1 Generalized anxiety disorder; I25.10 Atherosclerotic heart disease of native coronary artery without angina pectoris; Z95.5 Presence of coronary angioplasty implant and graft; M54.16 Radiculopathy, lumbar region; F17.210 Nicotine dependence, cigarettes, uncomplicated; E87.5 Hyperkalemia; I95.9 Hypotension, unspecified; B35.8 Other dermatophytoses; E83.42 Hypomagnesemia; Z98.890 Other specified postprocedural states
CPT/HCPCS: 36415; 36416; 36430; 36573; 36591; 36592; 36600; 51701; 51702; 71045; 71250; 74176; 77001; 80048; 80051; 80053; 80202; 80503; 81001; 82330; 82436; 82533; 82550; 82607; 82728; 82746; 82803; 82805; 82962; 83540; 83550; 83605; 83615; 83735; 83880; 84100; 84133; 84145; 84300; 84443; 85007; 85014; 85018; 85025; 85045; 85362; 85378; 85384; 85610; 85730; 86850; 86900; 86920; 87040; 87070; 87075; 87077; 87086; 87107; 87186; 87205; 87486; 87581; 87633; 87641; 88307; 88342; 93005; 93306; 93308; 93312; 93320; 93325; 93931; 93971; 94002; 94003; 94640; 94760; 94799; 96365; 96366; 96367; 96372; 96375; 96376; 97110; 97116; 97162; 97167; 97530; 97535; 99291; 99292; A4570; C1729; C1788; C9113; J0171; J0744; J0878; J1100; J1170; J1200; J1265; J1644; J1720; J1940; J2185; J2250; J2270; J2371; J2405; J2543; J2704; J2765; J2930; J2997; J3010; J3370; J3430; J3475; J3480; J3490; J7030; J7050; J7060; J7070; J7512; J7613; J7626; J7644; J8540; P9016; P9040; P9046

== ENCOUNTER 2023-01-04 10:08 | Observation (INO) | payer MEDICAID, SELFPAY ==
[2023-01-04 10:13] VITALS: BP 171/104; PULSE 125; RESP 16; TEMP 36.6; O2SAT 90; BMI 22.6
--- NOTE | 2023-01-04 11:13 | PC.NURSE ---
RN AT BEDSIDE, PATIENT HAS DISCUSSED PLAN OF CARE WITH MD. PATIENT STATES THAT SHE WOULD LIKE TO WAIT FOR HER TO COME TO ER TO FURTHER DISCUSS HOSPICE CARE PRIOR TO ANY LABS OR TESTS BEING DONE. PATIENT IS ONLY WANTING TO HAVE PAIN MEDICATION AND ANTIEMETICS AT THIS TIME. MD AWARE.
[2023-01-04] MEDS: sodium chloride 0.9% 1,000 ML 999 ML IV (11:45)
[2023-01-04] MEDS: HYDROmorphone 1 mg/mL INJ 1 mL IVP ×2 (11:45→15:10)
[2023-01-04] MEDS: ondansetron 2 mg/ML SDV 2 mL 4 MG IVP ×2 (11:45→22:53)
--- NOTE | 2023-01-04 12:37 | ED_ITS ---
HPI - Fever General: Chief Complaint: Fever Stated Complaint: FEVER Time Seen by Provider: 01/04/23 10:10 History of Present Illness: 62-year-old female with extensive history recently discharged from the hospital 2 days ago presents to the ER chief complaint of progressive shortness of breath significant and significant weakness with a fever patient was admitted to the hospital for almost a month in which she was found to have metastatic pleural effusion requiring pericardiocentesis due to secondary to pericardial tamponade patient was found to have a malignant effusion due to bladder cancer that she has been previously treated for patient went into a intermittent episode of cardiac arrest for approxi-2 minutes patient also into acute kidney injury after that as well as found to be bacteremic in which she started on vancomycin. Patient was recommended inpatient rehab upon prior to previously being discharged adamantly by the hospitalist which the patient declined patient presents from home after being home 2 days in which she is realize she is unable to take care of herself which has pain out of proportion due to her cancer weakness and fatigue with multiple decubitus ulcers to her buttocks patient endorses there has been some discussion about hospice that she may be interested in at this time patient is denying any additional lab work or imaging until discussing her status with her . Patient does not endorse any recent falls or traumas reporting no other associated symptoms Associated symptoms: Deny abdominal pain, flank pain, chills, chest pain, extremity pain, headache(s), nausea or vomiting Review of Systems General: Reports: 10 or more systems reviewed and unremarkable except in HPI and below Const: Reports: fever(s), fatigue and malaise; Denies: chills Eyes: Denies: change in vision or blurry vision Card: Denies: chest pain or palpitations Resp: Reports: dyspnea and productive cough GI: Denies: abdominal pain, nausea or vomiting : Denies: flank pain Musc: Denies: extremity pain or extremity swelling Skin/Breast: Denies: rash or pruritus Neuro: Denies: headache(s) Psych: Denies: anxiety or depression Ronny/Lymph: Denies: easy bleeding All/Imm: Denies: urticaria, throat swelling or facial swelling PFSH ED PFSH: Medical History Allergy to iodine Anemia Anxiety, generalized Bladder cancer CAD (coronary artery disease) Chronic post-traumatic stress disorder (PTSD) COPD (chronic obstructive pulmonary disease) Hypertension Lumbar radiculopathy, chronic Metastatic urothelial carcinoma Pericardial effusion without cardiac tamponade Port-A-Cath in place Post herpetic neuralgia Pyelonephritis Urinary tract infection UTI (urinary tract infection) Vitamin D insufficiency Surgical History History of abdominoplasty History of bladder surgery History of breast augmentation Saline History of heart artery stent 2 stents September 2013 History of tubal ligation Family History Sister Diabetes Brother Diabetes Denies family history of Bleeding disorder Social History Smoking and tobacco/nicotine status: current every day tobacco/nicotine user cigarettes Packs smoked per day: 1 Years cigarettes smoked: 45 Second hand smoke exposure: Yes Alcohol intake: unknown Substance/Drug Use: unknown Adopted: No Caregiver/support person: No Lives independently: Yes Household members: spouse Marital status: Number of children: 5 service: No Do you think of yourself as: Straight/Heterosexual Current gender identity: Female Physical Exam Const: COMMON NORMALS: no acute distress, patient oriented x3 and healthy appearing HENMT: COMMON NORMALS: normocephalic and atraumatic HEAD & SCALP: normocephalic and atraumatic Eye: COMMON NORMALS: Equal, round and reactive pupils present and EOMs intact bilaterally PUPIL: Yes Equal, round and reactive pupils present Neck/C-Spine: COMMON NORMALS: full ROM, supple and no JVD Lymph: LYMPHATIC: no lymphadenopathy noted Chest: COMMONS NORMALS: normal inspection of the chest and normal palpation of entire chest wall Resp: COMMON NORMALS: No retractions, No use of accessory muscles and clear to auscultation bilaterally; negative for normal respiratory effort (mild dyspnea noted no wheezing, crackles or rhonchi noted ) EFFORT & INSPECTION: Yes able to speak in complete sentences and Yes symmetric chest movement AUSCULTATION: clear to auscultation bilaterally Cardio: COMMON NORMALS: no JVD, regular rate and regular rhythm RATE: regular rate RHYTHM: regular rhythm GI: COMMON NORMALS: Normal to inspection, nondistended, normoactive bowel sounds present, Soft to palpation and non-tender INSPECTION: Yes normal to inspection PALPATION: Yes Soft to palpation : COMMON NORMALS: Yes no CVA tenderness BLADDER/KIDNEY EXAM: Yes no CVA tenderness Back/Pelvis: COMMON NORMALS: no CVA tenderness Extremity: COMMON NORMALS: normal to inspection and full ROM Neuro: COMMON NORMALS: patient oriented x3, CN's II-XII intact bilaterally, moves all extremities and no focal motor deficits Psych: COMMON NORMALS: mental status grossly normal, Normal thought process present, cooperative and normal affect THOUGHT PROCESS: Normal thought process present Skin: COMMON NORMALS: negative for no rashes or lesions noted (multiple bruises noted with several stage 2 decub ulcers noted to buttocks) GENERAL SKIN EXAM: rashes and/or lesions noted (multiple bruises noted with several stage 2 decub ulcers noted to buttocks) Course Vital Signs: Vital signs: Vital Signs Temperature 97.8 F 01/04/23 10:13 Pulse Rate 114 H 01/04/23 14:52 Respiratory Rate 18 01/04/23 14:52 Blood Pressure 161/90 01/04/23 14:52 Pulse Oximetry 90 01/04/23 14:52 Oxygen Delivery Me thod Nasal Cannula 01/04/23 10:13 Oxygen Flow Rate 3 01/04/23 10:13 MDM - Fever Medical Decision Making Spoke to patient at length about options including hospice, pt currently leaning towards hospice but currently waiting on her to arrive so they can further discuss this in detail discussed patient's case to Dr. Toth hospitalist on-call that did take care of the patient during her last admission and which will be further notified upon the patient's decision Patient decided to go the hospice route this is during a conversation with her present Dr. Jiménez was notified of this which we put in additional orders and patient will be admitted observation for pain control with a hospice consultation. All radiology interpretation(s) finalized by discharge Discharge Plan Discharge Patient Disposition: Admitted As Inpatient Clinical Impression: Malignant neoplasm metastatic from bladder, Admission for hospice care Condition: Stable Prescriptions: No Action albuterol sulfate 2.5 mg /3 mL (0.083 %) solution for nebulization 2.5 mg inhalation Q4H PRN (Reason: shortness of breath or wheezing) Qty: 300 5RF albuterol sulfate [ProAir HFA] 90 mcg/actuation HFA aerosol inhaler 2 puff inhalation Q6H PRN (Reason: shortness of breath or wheezing) Qty: 18 5RF lidocaine 5 % adhesive patch,medicated 1 patch topical DAILY PRN (Reason: pain) Qty: 30 2RF Rx Instructions: leave on most painful area for up to 12 hrs then off for 12 hours fluticasone propionate [Allergy Relief (fluticasone)] 50 mcg/actuation spray,suspension 2 spray intranasal DAILY Qty: 16 0RF epinephrine [EpiPen] 0.3 mg/0.3 mL auto-injector 0.3 mg IM Q10M PRN (Reason: anaphylaxis) Qty: 1 2RF Rx Instructions: for 2 doses DOK 100 mg capsule 100 mg PO BID PRN (Reason: Constipation) lidocaine-prilocaine 2.5-2.5 % cream See Rx Instructions .ROUTE .COMPLEX Rx Instructions: Apply 30-45 minutes prior to port access terbinafine HCl 1 % Cream 1 applic topical BID Qty: 15 0RF polyethylene glycol 3350 17 gram Powder In Packet 17 g PO BID 14 Days Qty: 28 0RF benzonatate 100 mg Capsule 100 mg PO TID PRN (Reason: cough) Qty: 15 0RF pantoprazole 40 mg Tablet,Delayed Release (Dr/Ec) 40 mg PO BID 30 Days Qty: 60 0RF dexamethasone 4 mg Tablet 2 mg PO BID 15 Days Qty: 15 0RF amiodarone [Pacerone] 200 mg Tablet 200 mg PO BID Qty: 60 0RF Rx Instructions: Twice daily for next 7 days followed by once daily guaifenesin [Mucinex] 600 mg Tablet Extended Release 12hr 600 mg PO BID Qty: 14 0RF nystatin 100,000 unit/mL Suspension 100,000 unit PO QID Qty: 200 0RF metoprolol tartrate 50 mg Tablet 50 mg PO BID@0900,2100 30 Days Qty: 60 0RF oxycodone 5 mg tablet 5 mg PO Q8H PRN (Reason: pain) 5 Days Qty: 15 0RF furosemide 40 mg tablet 40 mg PO QAM ondansetron 4 mg tablet,disintegrating 4 mg PO TID PRN (Reason: Nausea) Rx Instructions: Mild nausea Referrals: Alivia Cid FNP-C [Primary Care Provider] - Coding Level of Care Code ED Photograph Printer for g Rick
--- NOTE | 2023-01-04 13:19 | PC.NURSE ---
PATIENT AT BEDSIDE, PATIENT DISCUSSING HOSPICE WITH FAMILY. MD TO GO TO BEDSIDE TO DISCUSS OPTIONS WITH PATIENT AND FAMILY.
--- NOTE | 2023-01-04 14:43 | PM.HP ---
Providers/Chief Complaint Primary Care Provider: MELBA Mcintyre Chief Complaint: FEVER History of Present Illness Skye Ambrose is a 62 year old female who was recently discharged on 01/02 comes back to the hospital today because she feels exhausted and family is not able to take care of her. She feels short of breath, palpitations along with nausea and vomiting, decreased appetite and tired. Patient had a very long and complicated hospitalization.? Her hospital stay was complicated by cardiac arrest requiring CPR, DIC, significant thrombocytopenia, significant anemia requiring multiple blood transfusions, MRSA bacteremia, malignant pericarditis, critical limb ischemia of right hand, atrial flutter and fibrillation. Extensive goals of care discussions were done in the ER by the ER physician and myself with the patient and patient's at bedside. Patient wants to go hospice to SNF. Review of Systems General: Reports: 10 or more systems reviewed and unremarkable except in HPI and below Const: Denies: fever(s), chills, body aches, change in appetite, change in weight, malaise, night sweats, diaphoresis, change in sleep pattern, daytime sleepiness or snoring Eyes: Denies: change in vision, blurry vision, photophobia, eye discomfort or eye discharge ENMT: Denies: throat pain, enlarged tonsils, hoarseness, mouth pain, oral sores, dry mouth, tinnitus, nasal congestion or post nasal drip Card: Denies: chest pain, palpitations, irregular heart rhythm, edema, swelling of feet/ankles, lightheadedness, syncope, pre-syncope, dyspnea on exertion, orthopnea, leg pain with exertion or acrocyanosis Resp: Denies: dyspnea, productive cough, non-productive cough, wheezing, stridor, pain on inspiration, change in phlegm color, hemoptysis or chest congestion GI: Denies: abdominal pain, nausea, vomiting, hematemesis, coffee ground emesis, dysphagia, heartburn, diarrhea, constipation, bloating, GI cramping, change in bowel habits, pain on defecation, hematochezia or melena : Denies: flank pain, dysuria, urinary frequency, urinary urgency, urinary hesitancy, nocturia or hematuria Musc: Denies: neck pain, back pain, extremity pain, joint pain, joint swelling, joint redness, joint stiffness or limited range of motion Neuro: Denies: headache(s), numbness in extremities, weakness in extremities, sensory changes, lack of coordination, difficulty walking, frequent falls, dizziness, vertigo, confusion, Slurred speech present, difficulty communicating thoughts or seizure-like activity Psych: Denies: anxiety, depression, mood swings, panic attacks, hopelessness or irritability Endo: Denies: polyuria, polydipsia, tired all the time, cold intolerance, excessive sweating, flushing or heat intolerance Ronny/Lymph: Denies: easy bruising or easy bleeding All/Imm: Denies: tongue swelling, facial swelling or acute wheezing Medications/Allergies Home Medications Medication Instructions Recorded Confirmed Last Taken Type albuterol sulfate 2.5 mg/3 mL 2.5 mg (3 mL) inhalation Q4H PRN 04/02/22 01/04/23 06/12/22 07:00 Rx (0.083 %) solution for nebulization shortness of breath or wheezing #300 mL albuterol sulfate 90 mcg/actuation 2 puff inhalation Q6H PRN 04/02/22 01/04/23 12/16/22 Rx aerosol inhaler (ProAir HFA) shortness of breath or wheezing #18 grams epinephrine 0.3 mg/0.3 mL 0.3 mg (0.3 mL) IM Q10M PRN 04/02/22 01/04/23 04/15/22 Rx injection, auto-injector (EpiPen) anaphylaxis #1 ea fluticasone propionate 50 2 spray intranasal DAILY #16 grams 04/02/22 01/04/23 01/03/23 Rx mcg/actuation nasal spray,suspension (Allergy Relief (fluticasone)) lidocaine 5 % topical patch 1 patch topical DAILY PRN pain #30 04/02/22 01/04/23 06/04/22 Rx ea docusate sodium 100 mg capsule 100 mg PO BID PRN Constipation 08/29/22 01/04/23 01/03/23 History (DOK) lidocaine-prilocaine 2.5 %-2.5 % See Rx Instructions .Route .COMPLEX 12/16/22 01/04/23 Unknown History topical cream amiodarone 200 mg tablet (Pacerone) 200 mg PO BID #60 tabs 01/02/23 01/04/23 Unknown Rx benzonatate 100 mg capsule 100 mg PO TID PRN cough #15 caps 01/02/23 01/04/23 Unknown Rx dexamethasone 4 mg tablet 2 mg PO BID 15 days #15 tabs 01/02/23 01/04/23 01/03/23 Rx guaifenesin 600 mg tablet, 600 mg PO BID #14 tabs 01/02/23 01/04/23 01/03/23 Rx extended release 12 hr (Mucinex) metoprolol tartrate 50 mg tablet 50 mg PO BID@0900,2100 30 days #60 01/02/23 01/04/23 01/03/23 Rx tabs nystatin 100,000 unit/mL oral 100,000 unit PO QID #200 mL 01/02/23 01/04/23 Unknown Rx suspension oxycodone 5 mg tablet 5 mg PO Q8H PRN pain 5 days #15 01/02/23 01/04/23 Unknown Rx tabs pantoprazole 40 mg tablet,delayed 40 mg PO BID 30 days #60 tabs 01/02/23 01/04/23 01/03/23 Rx release polyethylene glycol 3350 17 gram 17 g PO BID 14 days #28 ea 01/02/23 01/04/23 01/03/23 Rx oral powder packet terbinafine HCl 1 % topical cream 1 applic topical BID #15 grams 01/02/23 01/04/23 01/03/23 Rx furosemide 40 mg tablet 40 mg PO QAM 01/04/23 01/04/23 01/04/23 History ondansetron 4 mg disintegrating 4 mg PO TID PRN Nausea 01/04/23 01/04/23 Unknown History tablet Allergies Allergy/AdvReac Type Severity Reaction Status Date / Time ceftriaxone [From Rocephin] Allergy Severe ALGY-Anaphy Verified 12/16/22 10:01 laxis cephalexin [From Keflex] Allergy Severe ALGY-Anaphy Verified 12/16/22 10:01 laxis eszopiclone [Lunesta] Allergy Severe ADR-Agitate Verified 12/16/22 10:01 d zaleplon [From Sonata] Allergy Severe ADR-Halluci Verified 12/16/22 10:01 nating zolpidem [From Ambien] Allergy Severe ADR-Halluci Verified 12/16/22 10:01 nating dextromethorphan Allergy Intermediate ADR-Halluci Verified 12/16/22 10:01 nating Iodinated Contrast Media Allergy UNK Verified 12/16/22 10:01 ketoprofen Allergy Unknown Verified 12/16/22 10:01 ketorolac [From Toradol] Allergy UNK Verified 12/16/22 10:01 mirtazapine [From Remeron] Allergy UNK Verified 12/16/22 10:01 nitrofurantoin Allergy UNK Verified 12/16/22 10:01 [From Macrobid] rofecoxib [From Vioxx] Allergy UNK Verified 12/16/22 10:01 sulfamethoxazole Allergy UNK Verified 12/16/22 10:01 [From Bactrim] sumatriptan [From Imitrex] Allergy UNK Verified 12/16/22 10:01 trimethoprim [From Bactrim] Allergy UNK Verified 12/16/22 10:01 PFSH Acute PFSH: Medical History (Updated 01/04/23 @ 14:59 by David Sandhu) Allergy to iodine Anemia Anxiety, generalized Bladder cancer CAD (coronary artery disease) Chronic post-traumatic stress disorder (PTSD) COPD (chronic obstructive pulmonary disease) Hypertension Lumbar radiculopathy, chronic Metastatic urothelial carcinoma Pericardial effusion without cardiac tamponade Port-A-Cath in place Post herpetic neuralgia Pyelonephritis Urinary tract infection UTI (urinary tract infection) Vitamin D insufficiency Surgical History History of abdominoplasty History of bladder surgery History of breast augmentation Saline History of heart artery stent 2 stents September 2013 History of tubal ligation Family History Sister Diabetes Brother Diabetes Denies family history of Bleeding disorder Social History Smoking and tobacco/nicotine status: current every day tobacco/nicotine user cigarettes Packs smoked per day: 1 Years cigarettes smoked: 45 Second hand smoke exposure: Yes Alcohol intake: unknown Substance/Drug Use: unknown Adopted: No Caregiver/support person: No Lives independently: Yes Household members: spouse Marital status: Number of children: 5 service: No Do you think of yourself as: Straight/Heterosexual Current gender identity: Female Vitals/I&O/Wt Last Vital Signs Temp 97.8 F 01/04/23 10:13 Pulse 125 H 01/04/23 10:13 Resp 16 01/04/23 10:13 BP 171/104 01/04/23 10:13 Pulse Ox 90 01/04/23 10:13 O2 Del Method Nasal Cannula 01/04/23 10:13 O2 Flow Rate 3 01/04/23 10:13 Weight last 48 hrs Weight 54.431 kg Physical Exam Narrative: General: No acute distress, AO x3, Tired and chronically sick appearing on nasal cannula HEENT: PERRLA, pupils bilaterally equal and reactive Chest: Normal vesicular breath sounds, no added sounds, decreased air entry bilateral lower zone, left more than right CVS: S1-S2 regular, no murmurs, no tachycardia, no gallops, no rubs Abdomen: Soft, nontender, no organomegaly, bowel sounds present Neuro: No focal deficits, no facial deformity, AO x3, power 5/5 in all limbs A&P Assessment and plan (1) Goals of care, counseling/discussion: (2) Cancer cachexia: (3) Protein-energy malnutrition: (4) MRSA (methicillin resistant Staphylococcus aureus) septicemia: (5) Metastatic urothelial carcinoma: (6) 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 Her last hospital stay was complicated by cardiac arrest requiring CPR, DIC, significant thrombocytopenia, significant anemia requiring multiple blood transfusions, MRSA bacteremia, malignant pericarditis, critical limb ischemia of right hand, atrial flutter and fibrillation. She presents to the hospital today because she is feeling exhausted and family is not able to take care of her at home. Extensive goals of care discussions were done by ER physician and myself with patient and patient's at bedside. We discussed unfortunately patient is extremely cachectic, has severe protein energy malnutrition in setting of bladder cancer with metastasis, malignant pericardial effusion along with MRSA bacteremia. We discussed it is highly likely that patient is not strong enough to go further medical management for her cancer. Patient states she is exhausted and she just wants to remain comfortable. We discussed about possible hospice which would mean that she will continue her treatment by oral medications as possible, she would not get IV antibiotics or any further chemotherapy but goals will be to keep her comfortable, less anxious with IV and oral pain and anxiety medications while nature takes its course and in the meanwhile if her heart stops or if she is not able to breathe on her own goals will be to keep her comfortable without any heroic measures like chest compressions or mechanical ventilation. Both patient and patient's verbalized understanding and wants to go ahead with hospice care. Both do not believe that they can give her appropriate care at home and hence requesting SNF placement with hospice. CODE STATUS DNR/DNI Famotidine for PUD prophylaxis Morphine, Ativan as needed Attestations Medical Necessity Statement*: Admission under observation for hospice care Diagnoses Goals of care, counseling/discussion Z71.89 Cancer cachexia R64 Protein-energy malnutrition E46 MRSA (methicillin resistant Staphylococcus aureus) septicemia A41.02 Metastatic urothelial carcinoma C79.10 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
[2023-01-04 14:52] VITALS: BP 161/90; PULSE 114; RESP 18; O2SAT 90
[2023-01-04] MEDS: famotidine 20 mg/2 mL INJ IVP (18:45)
[2023-01-04] MEDS: sennosides-docusate Tablet 1 TAB PO (18:45)
[2023-01-04 20:44] VITALS: RESP 16
[2023-01-04] MEDS: morphine 4 mg/mL SDV 1 mL IVP ×2 (20:44→22:53)
[2023-01-04 21:25] VITALS: BP 130/85; PULSE 99; RESP 16; TEMP 36.6; O2SAT 95
[2023-01-04 22:53] VITALS: RESP 18
[2023-01-04] MEDS: metoclopramide 5 mg/mL SDV 2 mL 10 MG IVP (23:25)
[2023-01-05] VITALS (7 sets, daily range): BP systolic 102–136; BP diastolic 71–81; PULSE 98–106; RESP 16–24; TEMP 37.1; O2SAT 92–97
[2023-01-05] MEDS: promethazine 25 mg/mL SDV 1 mL IM (04:48)
[2023-01-05] MEDS: famotidine 20 mg/2 mL INJ IVP ×2 (05:30→17:57)
[2023-01-05] MEDS: morphine 4 mg/mL SDV 1 mL IVP ×3 (05:30→15:25)
--- NOTE | 2023-01-05 05:33 | PC.NURSE ---
patient refusing to let staff change brief
[2023-01-05] MEDS: metoprolol tartrate 50 mg Tablet PO (11:16)
[2023-01-05] MEDS: amiodarone 200 mg Tablet PO (11:16)
[2023-01-05] MEDS: LORazepam 2 mg/mL INJ 1 mL IVP (11:17)
--- NOTE | 2023-01-05 12:47 | PM.PN ---
Subjective Subjective: No acute events. Remains comfortable. Refused [place]. As per nursing staff refusing to be positioned in bed. Vitals/I&O/Wt Last Vital Signs Temp 97.8 F 01/04/23 21:25 Pulse 106 H 01/05/23 08:02 Resp 16 01/05/23 11:16 BP 102/71 01/05/23 08:02 Pulse Ox 97 01/05/23 08:02 O2 Del Method Nasal Cannula 01/05/23 08:02 O2 Flow Rate 3 01/05/23 08:00 01/04/23 01/05/23 01/05/23 22:59 06:59 14:59 Intake Total 240 / 1240 240 / 1480 240 / 240 Balance 240 / 1240 240 / 1480 240 / 240 Weight last 48 hrs Weight 54.431 kg Physical Exam Narrative: General: No acute distress, AO x3, Tired and chronically sick appearing on nasal cannula HEENT: PERRLA, pupils bilaterally equal and reactive Chest: Normal vesicular breath sounds, no added sounds, decreased air entry bilateral lower zone, left more than right CVS: S1-S2 regular, no murmurs, no tachycardia, no gallops, no rubs Abdomen: Soft, nontender, no organomegaly, bowel sounds present Neuro: No focal deficits, no facial deformity, AO x3, power 5/5 in all limbs A&P Assessment and plan (1) Goals of care, counseling/discussion: (2) Cancer cachexia: (3) Protein-energy malnutrition: (4) MRSA (methicillin resistant Staphylococcus aureus) septicemia: (5) Metastatic urothelial carcinoma: (6) 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 Her last hospital stay was complicated by cardiac arrest requiring CPR, DIC, significant thrombocytopenia, significant anemia requiring multiple blood transfusions, MRSA bacteremia, malignant pericarditis, critical limb ischemia of right hand, atrial flutter and fibrillation. She presents to the hospital today because she is feeling exhausted and family is not able to take care of her at home. Extensive goals of care discussions were done by ER physician and myself with patient and patient's at bedside. We discussed unfortunately patient is extremely cachectic, has severe protein energy malnutrition in setting of bladder cancer with metastasis, malignant pericardial effusion along with MRSA bacteremia. We discussed it is highly likely that patient is not strong enough to go further medical management for her cancer. Patient states she is exhausted and she just wants to remain comfortable. We discussed about possible hospice which would mean that she will continue her treatment by oral medications as possible, she would not get IV antibiotics or any further chemotherapy but goals will be to keep her comfortable, less anxious with IV and oral pain and anxiety medications while nature takes its course and in the meanwhile if her heart stops or if she is not able to breathe on her own goals will be to keep her comfortable without any heroic measures like chest compressions or mechanical ventilation. Both patient and patient's verbalized understanding and wants to go ahead with hospice care. Both do not believe that they can give her appropriate care at home and hence requesting SNF placement with hospice. CODE STATUS DNR/DNI Famotidine for PUD prophylaxis Morphine, Ativan as needed Attestations Medical Necessity Statement*: Requires further hospitalization for hospice care while safe discharge planning is sought Coding Level of Care Code 46487 Straight Forward/Low MDM includes number and complexity of problems actively addressed during encounter, amount and/or complexity of data reviewed/ordered [ previous or external records, resulted lab(s)/test(s), ordered lab(s)/test(s), independent historian, independent test interpretation and other healthcare professional discussion] and described risk of complication, morbidity or mortality of management as documented Diagnoses Goals of care, counseling/discussion Z71.89 Cancer cachexia R64 Protein-energy malnutrition E46 MRSA (methicillin resistant Staphylococcus aureus) septicemia A41.02 Metastatic urothelial carcinoma C79.10 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
--- NOTE | 2023-01-05 14:40 | PC.NURSE ---
updated phone numbers: Juan [phone], Rudy- [phone]
[2023-01-06] MEDS: morphine 4 mg/mL SDV 1 mL IVP (04:55)
[2023-01-06] MEDS: LORazepam 2 mg/mL INJ 1 mL IVP (04:59)
--- NOTE | 2023-01-06 05:17 | PC.NURSE ---
pt update pt changed at approx the 0500 hour. new optifoam placed. pt was complaining of pain being rolled side to side and this nurse asked pt if she would like her covarrubias reinserted and pt states no. meds then given to pt.
[2023-01-06] MEDS: famotidine 20 mg/2 mL INJ IVP ×2 (06:25→17:53)
[2023-01-06 07:28] VITALS: O2SAT 93
[2023-01-06] MEDS: morphine 10 mg/0.5 mL oral liq UD SUBLINGUAL (14:30)
--- NOTE | 2023-01-06 15:36 | PM.PN ---
Subjective Subjective: Patient barely awakens to questioning. Patient says yes to everything I ask including pain shortness of breath and if she wants hospice or if she wants to continue cancer treatment. No family is at the bedside. Vitals/I&O/Wt Last Vital Signs Temp 98.8 F 01/05/23 21:13 Pulse 98 01/05/23 21:13 Resp 24 H 01/05/23 21:13 BP 136/81 01/05/23 21:13 Pulse Ox 93 01/06/23 07:28 O2 Del Method Nasal Cannula 01/06/23 07:28 O2 Flow Rate 3 01/06/23 07:28 Physical Exam Narrative: Chronically ill female appears older than her stated age of 62. She is in mild to moderate distress based on clinical exam. Neurologic: Patient is lethargic and appears confused Heart: Regular without loud murmur Lungs: Increased respiratory rate diminished throughout a few wheezes auscultated Abdomen: Soft nontender nondistended positive bowel sounds Extremities edema in feet and lower extremity: 2+ knees to the knees. Patient has necrosis of the right fingers at the tips A&P Assessment and plan (1) Malignant neoplasm metastatic from bladder: (2) Need for comfort care: (3) Dying care: Plan Patient admitted for comfort measures. Was unable to be cared for at home. Awaiting bed availability at [facility] either admit to [facility] hospice or discharged to [facility] tomorrow with hospice care. Discussed with RN to give low-dose Roxanol scheduled every 3 hours. Patient is much more comfortable after just 2 mg given. Attestations Medical Necessity Statement*: Care of the dying patient that cannot be given at home. Coding Level of Care Code Acute Code for Chg Fwd Diagnoses Malignant neoplasm metastatic from bladder C67.9 Need for comfort care Dying care Z51.5
[2023-01-06] MEDS: morphine 10 mg/0.5 mL oral liq UD 2 MG PO ×2 (19:39→23:12)
[2023-01-06 20:00] VITALS: BP 118/78; PULSE 91; RESP 17; TEMP 36.6; O2SAT 90
[2023-01-06] MEDS: metoprolol tartrate 50 mg Tablet PO (21:34)
--- NOTE | 2023-01-07 01:08 | PC.NURSE ---
pt care this nurse took over pt care at this time.
--- NOTE | 2023-01-07 01:42 | PC.NURSE ---
pt wants update on care pt asked this nurse for the specific reason anti biotics were stopped. this nurse explained when a pt and family choose comfort care pt is spared any further truma to body such as iv's. pt states he would like to speak to hospitalist in am.
[2023-01-07] MEDS: morphine 10 mg/0.5 mL oral liq UD 2 MG PO ×4 (03:24→16:38)
[2023-01-07] MEDS: famotidine 20 mg/2 mL INJ IVP (06:23)
[2023-01-07] MEDS: metoprolol tartrate 50 mg Tablet PO (09:23)
[2023-01-07] MEDS: sennosides-docusate Tablet 1 TAB PO (09:24)
[2023-01-07] MEDS: amiodarone 200 mg Tablet PO (09:24)
--- NOTE | 2023-01-07 16:56 | PM.PN ---
Subjective Subjective: Patient remains comfortable in appearance. was at bedside today. He had questions regarding the care of his . He was under the impression that antibiotics would be continued for a prior MRSA infection. See below for conversation Vitals/I&O/Wt Last Vital Signs Temp 98 F 01/06/23 20:00 Pulse 91 01/06/23 20:00 Resp 17 01/06/23 20:00 BP 118/78 01/06/23 20:00 Pulse Ox 90 01/06/23 20:00 O2 Del Method Nasal Cannula 01/07/23 09:30 O2 Flow Rate 3 01/06/23 07:28 Physical Exam Narrative: Chronically ill female appears older than her stated age of 62. She is in mild distress due to pain on the right side. She has just received her Roxanol dose. Neurologic: Patient is lethargic and appears confused Heart: Regular without loud murmur Lungs: Increased respiratory rate diminished throughout a few wheezes auscultated Abdomen: Soft nontender nondistended positive bowel sounds Extremities edema in feet and lower extremity: 2+ knees to the knees. Patient has necrosis of the right fingers at the tips A&P Assessment and plan (1) Malignant neoplasm metastatic from bladder: (2) Need for comfort care: (3) Dying care: Plan Patient admitted for comfort measures. Was unable to be cared for at home. Decision to treat with comfort measures and no antibiotics was documented in the H&P by Dr. Maria. Patient had MRSA on a catheter tip on 12/18/2022. It has been sufficiently treated during last hospitalization. Her follow-up blood cultures have all been negative. I spoke with the and explained the severity of patient's illness and explained that she was actively dying. He expressed grief and concerned over other family members. We focused on his needs and her needs. I advised him to inform the family that the physician told Skye is actively dying and they can make decisions of if and when they come to say goodbye. He asked for a local bowl turner to return and arrangements were made. The charge nurse and I provided comfort and patient expressed appreciation. He states that he now understands the goals of care and is comfortable with current treatment. Notified this afternoon that patient is excepted to [facility] plan is to discharge tomorrow. Remove IV. CARE PROGRAM DIRECTOR to give bath. Multiple bandages removed and assessed with myself and RN. All incisions are clear dry and intact. Multiple bruises with bandages that are not necessary at this time. A few areas would benefit from triple antibiotic ointment and a cover. Attestations Medical Necessity Statement*: Care of the dying patient that cannot be given at home. Coding Level of Care Code Acute Code for Chg Fwd Diagnoses Malignant neoplasm metastatic from bladder C67.9 Need for comfort care Dying care Z51.5
[2023-01-07] MEDS: mupirocin oint 22 gm 1 APPLIC TOPICAL (18:37)
[2023-01-07 19:11] LABS: SARS Covid-2 Antigen negative (Negative)
[2023-01-07 20:13] VITALS: BP 102/67; PULSE 79; RESP 17; TEMP 36.4; O2SAT 96
[2023-01-07] MEDS: LORazepam 2 mg/mL INJ 1 mL 0.5 MG PO (20:26)
[2023-01-07] MEDS: morphine 10 mg/0.5 mL oral liq UD 3 MG PO (21:02)
[2023-01-08] MEDS: LORazepam 2 mg/mL INJ 1 mL 0.5 MG PO ×2 (00:22→05:59)
[2023-01-08] MEDS: morphine 10 mg/0.5 mL oral liq UD 3 MG PO ×4 (00:23→12:02)
[2023-01-08] MEDS: sennosides-docusate Tablet 1 TAB PO (08:51)
[2023-01-08] MEDS: mupirocin oint 22 gm 1 APPLIC TOPICAL (08:52)
--- NOTE | 2023-01-08 09:55 | PM.DCS ---
Discharge Providers Date of Admission: 01/04/23 14:41 Date of Discharge: January 08, 2023 Attending Provider at Admission: Cesar Jiménez MD Attending Provider at Discharge: Peter Allison DO Primary Care Provider: MELBA Mcintyre Diagnoses at Discharge Discharge Diagnosis (1) Malignant neoplasm metastatic from bladder: Status: Acute (2) Need for comfort care: Status: Acute (3) Dying care: Status: Acute Reason for Visit Reason for Visit: FEVER Brief History: Patient was just discharged home after 17-day hospitalization. Apparently the living situation was not adequate and the brought the patient back. In the emergency room the physician spoke openly and honestly with the patient and her . They suggested comfort measures. The patient and were agreeable and elected assisted placement with hospice. Hospital Course Hospital Course Patient was admitted to the hospital for comfort measures only. And the comfort order set was ordered.. She was given Roxanol and Ativan as needed and then scheduled due to increasing symptoms of pain. ?I spoke with the and explained the severity of patient's illness and explained that she was actively dying.? He expressed grief and concerned over other family members.? We focused on his needs and her needs.? I advised him to inform the family that the physician told Skye is actively dying and they can make decisions of if and when they come to say goodbye.? He asked for a local targeteer to return and arrangements were made.? The charge nurse and I provided comfort and patient expressed appreciation.? He states that he now understands the goals of care and is comfortable with current treatment.? Patient will be transported to [facility] today with [facility] hospice. Physical Exam Narrative: Chronically ill female appears older than her stated age of 62. Patient appears comfortable with eyes closed breathing normally. Neurologic: Patient is lethargic but comfortable Heart: Regular mild tachycardia without loud murmur Lungs: Increased respiratory rate diminished throughout a few wheezes auscultated Abdomen: Soft appears distended today. And mildly tender on palpation, decreased bowel sounds Extremities edema in feet and lower extremity: 2+ knees to the knees. Patient has necrosis of the right fingers at the tips Discharge Data Studies Completed and Pending Pending at discharge Category Date Time Status SARS Covid-2 Antigen Routine Lab 01/08/23 09:37 Uncollected Laboratory Results SARS-CoV-2 Ag (Rapid) negative (Negative) 01/07/23 18:30 Vitals Last Vital Signs Temp 97.5 F L 01/07/23 20:13 Pulse 79 01/07/23 20:13 Resp 17 01/07/23 20:13 BP 102/67 01/07/23 20:13 Pulse Ox 96 01/07/23 20:13 O2 Del Method Room Air 01/08/23 08:00 O2 Flow Rate 3 01/06/23 07:28 Discharge Plan Discharge Patient Disposition: Xfer SNF Condition: Serious Prescriptions: New mupirocin 2 % Ointment 1 applic topical BID Qty: 1 0RF Isopto Atropine 1 % Drops 3 drp sublingual Q4H Qty: 30 0RF Isopto Tears 0.5 % Drops 2 drp eye-both Q2H PRN (Reason: Dry Eye(S)) Qty: 30 0RF Continued albuterol sulfate 2.5 mg /3 mL (0.083 %) solution for nebulization 2.5 mg inhalation Q4H PRN (Reason: shortness of breath or wheezing) Qty: 300 5RF albuterol sulfate [ProAir HFA] 90 mcg/actuation HFA aerosol inhaler 2 puff inhalation Q6H PRN (Reason: shortness of breath or wheezing) Qty: 18 5RF lidocaine 5 % adhesive patch,medicated 1 patch topical DAILY PRN (Reason: pain) Qty: 30 2RF Rx Instructions: leave on most painful area for up to 12 hrs then off for 12 hours fluticasone propionate [Allergy Relief (fluticasone)] 50 mcg/actuation spray,suspension 2 spray intranasal DAILY Qty: 16 0RF epinephrine [EpiPen] 0.3 mg/0.3 mL auto-injector 0.3 mg IM Q10M PRN (Reason: anaphylaxis) Qty: 1 2RF Rx Instructions: for 2 doses lidocaine-prilocaine 2.5-2.5 % cream See Rx Instructions .ROUTE .COMPLEX Rx Instructions: Apply 30-45 minutes prior to port access terbinafine HCl 1 % Cream 1 applic topical BID Qty: 15 0RF polyethylene glycol 3350 17 gram Powder In Packet 17 g PO BID 14 Days Qty: 28 0RF nystatin 100,000 unit/mL Suspension 100,000 unit PO QID Qty: 200 0RF ondansetron 4 mg tablet,disintegrating 4 mg PO TID PRN (Reason: Nausea) Rx Instructions: Mild nausea Discontinued DOK 100 mg capsule 100 mg PO BID PRN (Reason: Constipation) benzonatate 100 mg Capsule 100 mg PO TID PRN (Reason: cough) Qty: 15 0RF pantoprazole 40 mg Tablet,Delayed Release (Dr/Ec) 40 mg PO BID 30 Days Qty: 60 0RF dexamethasone 4 mg Tablet 2 mg PO BID 15 Days Qty: 15 0RF amiodarone [Pacerone] 200 mg Tablet 200 mg PO BID Qty: 60 0RF Rx Instructions: Twice daily for next 7 days followed by once daily guaifenesin [Mucinex] 600 mg Tablet Extended Release 12hr 600 mg PO BID Qty: 14 0RF metoprolol tartrate 50 mg Tablet 50 mg PO BID@0900,2100 30 Days Qty: 60 0RF oxycodone 5 mg tablet 5 mg PO Q8H PRN (Reason: pain) 5 Days Qty: 15 0RF furosemide 40 mg tablet 40 mg PO QAM No Action ondansetron 4 mg tablet,disintegrating 4 mg translingual Q4H PRN (Reason: nausea) Qty: 30 0RF Rx Instructions: Dissolve 1 tablet under tongue every 4 hours PRN for nausea lorazepam 2 mg/mL concentrate 2 mg sublingual Q4H PRN (Reason: Anxiety/Seizure) Qty: 60 0RF Rx Instructions: 0.25ml-1ml q4H PRN Anxiety/Seizure Start 0.25ml may increase to 0.5ml-1ml q4H morphine concentrate 100 mg/5 mL (20 mg/mL) solution 20 mg sublingual DIRECTED PRN (Reason: Pain/SOB) 14 Days Qty: 60 0RF Rx Instructions: 0.25ml-1ml q1H PRN may increase to 0.5ml-1ml Q1H PRN bisacodyl 10 mg suppository 10 mg [place] DAILY PRN (Reason: constipation) Qty: 5 0RF Rx Instructions: 1 suppository per rectum every day PRN for constipation. atropine 1 % drops 4 drp sublingual Q4H PRN (Reason: secretions) Qty: 30 0RF Rx Instructions: 4 drops SL q 4 hours PRN for terminal congestion/excessive secretions. Discharge Orders: Discharge Order (Routine); Ordered 01/08/23 Ordered By: Peter Allison Referrals: Alivia Cid FNP-C [Primary Care Provider] - Discharge Diet: Advance as tolerated Discharge Activity: Resume usual activity Patient Instructions: Opioid Safety Discharge Attestations Time Spent in Discharge Care*: less than 30 min Status at Discharge: Cognitive status at discharge: cognitively intact, Behavioral status at discharge: can be uncooperative, Quality Metrics Clinical Quality Measures [ No reported AMI, CVA or VTE this stay] Coding Level of Care Code Acute Code for Chg Fwd Diagnoses Malignant neoplasm metastatic from bladder C67.9 Need for comfort care Dying care Z51.5
[2023-01-08 13:17] VITALS: BP 102/67; PULSE 79; RESP 17; TEMP 36.4; O2SAT 96
== END 2023-01-08 12:30 | disposition skilled nursing facility (03) ==
LOC: ER 14:59 → MEDSURG 16:26
PROVIDERS: Admitting Provider Student in an Organized Health Care Education/Training Program; Emergency Provider Emergency Medicine; PCP Nurse Practitioner Family; Visit Provider Internal Medicine
DX: C67.9 Malignant neoplasm of bladder, unspecified (principal); C79.10 Secondary malignant neoplasm of unspecified urinary organs; Z51.5 Encounter for palliative care; Z86.14 Personal history of Methicillin resistant Staphylococcus aureus infection; I10 Essential (primary) hypertension; Z66 Do not resuscitate; R64 Cachexia; E46 Unspecified protein-calorie malnutrition; Z68.22 Body mass index [BMI] 22.0-22.9, adult; I31.31 Malignant pericardial effusion in diseases classified elsewhere; I48.91 Unspecified atrial fibrillation; I48.92 Unspecified atrial flutter; I99.8 Other disorder of circulatory system; Z95.828 Presence of other vascular implants and grafts; I25.10 Atherosclerotic heart disease of native coronary artery without angina pectoris; J44.9 Chronic obstructive pulmonary disease, unspecified; F17.210 Nicotine dependence, cigarettes, uncomplicated
CPT/HCPCS: 87426; 96372; 96374; 96375; 96376; 99285; G0378; J1170; J2060; J2270; J2405; J2550; J2765; J3490; J7030